=== PATIENT | male | born 1940 | race Caucasian/White ===

== ENCOUNTER → 2018-02-28 06:50 | Outpatient (CLI) | payer MEDICARE, OTHER, SELFPAY ==
--- NOTE | 2018-02-28 06:57 | CT_ITS ---
STUDY: LOW DOSE CT LUNG CANCER SCREENING REASON FOR EXAM: Male, 77 years old. 30 year pack history of smoking. RADIATION DOSAGE (If Supplied By Facility): CTDIvol = ( 4.02 ) mGy, DLP = ( 139.44 ) mGycm TECHNIQUE: No contrast was administered. Low dose technique was utilized (average mAS-38 and kVp 120). 1.25 mm axial source images with a slice interval of 1.25-mm were reconstructed in lung windows. 2.5 mm axial source images with a slice interval of 2.5-mm were reconstructed in lung windows. 5.0 mm axial source images with a slice interval of 5.0-mm were reconstructed in soft tissue windows. Nodule measured using lung windows on PACS and/or independent workstation with automated measurement of minimum and maximum diameter. Nodule measurement reported as average diameter rounded to the nearest whole number. Growth is defined as an increase ins size of greater than 1.5 mm. COMPARISON: Comparison is made with prior CT scan of the chest dated March 21, 2017. NODULES: No suspicious nodules seen. Aorta: Atherosclerotic plaque of the aortic arch and descending thoracic aorta. Coronary arteries: Prior CABG. Coronary artery calcification. Mediastinal nodes: Small benign-appearing mediastinal lymph nodes. Other chest and abdominal findings: Degenerative changes of the thoracic spine. CT/Low Dose CT Lung Screening IMPRESSION: Lung-RADS category 2 - Continue annual screening with LDCT in 12 months. IMPORTANT NOTES FOR USE: ACR Lung-RADS Version 1.0 Assessment Categories Release Date: March 23, 2014 Category: Coded 0-4 bases on nodule(s) with highest degree of suspicion. Negative screen is defined as categories 1 and 2; a positive screen is defined as categories 3 and 4. Category 3 and 4A nodules that are unchanged on interval CT should be coded as category 2, and individuals returned to screening in 12 months. Category 4X: Category 3 or 4 nodules with additional imaging findings that increase the suspicion of lung cancer, such as spiculation, GGN that doubles in size in 1 year, enlarged lymph notes, etc. Category Modifiers: S (significant finding unrelated to lung cancer) and C (prior history of treated lung cancer) may be added to the 0-4 Lung-RADS Electronically Signed: Og Oshea MD at 8:31 EDT Tel [phone], Service support ,
--- NOTE | 2018-02-28 11:15 | PFTCOMP ---
COMPLETE PULMONARY FUNCTION TEST INTERPRETATION Brief HPI: Patient is a 77 year old male, currently under the care of Dr. Estes, who presents to [facility] for complete pulmonary function tests secondary to diagnosis of COPD. Respiratory therapist reports good effort and reproducible results. Interpretation: Forced expiration spirometry shows a mild large airways obstructive ventilatory defect with an FEV1 of 75 % predicted. There is a significant bronchodilator response in FEV1 by ATS criteria. Spirograms are of good quality and plateau slowly, indicating slowly emptying areas of the lungs. The respiratory flow volume loop shows decreased expiratory flow rates at all lung volumes consistent with airway obstruction. Lung volumes by body plethysmography show a normal total lung capacity at 5.96 L, 93 % predicted. All other lung volumes are within normal limits. Diffusion capacity by carbon monoxide is normal at 90 % predicted. The airway resistance is elevated. Compared to previous pulmonary function tests from 01/30/2017, there has been a significant improvement in DLCO. Impression: Fully reversible mild large airways obstructive ventilatory defect more consistent with a diagnosis of asthma than COPD. There has been normalization of DLCO since last study.
--- NOTE | 2018-02-28 11:19 | PFTCOMP_ITS ---
COMPLETE PULMONARY FUNCTION TEST INTERPRETATION Brief HPI: Patient is a 77 year old male, currently under the care of Dr. Estes, who presents to [facility] for complete pulmonary function tests secondary to diagnosis of COPD. Respiratory therapist reports good effort and reproducible results. Interpretation: Forced expiration spirometry shows a mild large airways obstructive ventilatory defect with an FEV1 of 75 % predicted. There is a significant bronchodilator response in FEV1 by ATS criteria. Spirograms are of good quality and plateau slowly, indicating slowly emptying areas of the lungs. The respiratory flow volume loop shows decreased expiratory flow rates at all lung volumes consistent with airway obstruction. Lung volumes by body plethysmography show a normal total lung capacity at 5.96 L , 93 % predicted. All other lung volumes are within normal limits. Diffusion capacity by carbon monoxide is normal at 90 % predicted. The airway resistance is elevated. Compared to previous pulmonary function tests from 01/30/2017, there has been a significant improvement in DLCO. Impression: Fully reversible mild large airways obstructive ventilatory defect more consistent with a diagnosis of asthma than COPD. There has been normalization of DLCO since last study.
== END ==
PROVIDERS: Family Provider Nurse Practitioner Family; PCP Nurse Practitioner Family; Visit Provider Internal Medicine Critical Care Medicine
DX: Z12.2 Encounter for screening for malignant neoplasm of respiratory organs (principal); J44.9 Chronic obstructive pulmonary disease, unspecified; G47.33 Obstructive sleep apnea (adult) (pediatric); Z87.891 Personal history of nicotine dependence; E66.9 Obesity, unspecified
CPT/HCPCS: 94060; 94726; 94729; G0297

== ENCOUNTER → 2019-02-11 07:29 | Outpatient (CLI) | payer MEDICARE, OTHER, SELFPAY ==
[2018-11-22 10:46] VITALS: BMI 32.8
--- NOTE | 2019-02-11 14:03 | PFTCOMP_ITS ---
COMPLETE PULMONARY FUNCTION TEST INTERPRETATION Brief HPI: Patient is a 78 year old male, currently under the care of Dr. Estes, who presents to [facility] for complete pulmonary function tests secondary to diagnosis of COPD. Respiratory therapist reports good effort and reproducible results. Interpretation: Forced expiration spirometry shows a mild large airways obstructive ventilatory defect with an FEV1 of 82% predicted. There is no significant bronchodilator response by strict ATS criteria. Spirograms are of good quality and plateau slowly, indicating slowly emptying areas of the lungs. The respiratory flow volume loop shows decreased expiratory flow rates at high lung volumes consistent with small airways obstruction. Lung volumes by body plethysmography show a normal total lung capacity at 6.12 L, 95% predicted. All other lung volumes are within normal limits. Diffusion capacity by carbon monoxide is normal at 107% predicted. The airway resistance is normal. Compared to previous pulmonary function tests from 02/28/2018, there has been a significant improvement in DLCO. Impression: Irreversible mild large airways obstructive ventilatory defect with some improvement compared to previous testing.
== END ==
PROVIDERS: Family Provider Nurse Practitioner Family; PCP Nurse Practitioner Family; Referring Provider Nurse Practitioner Acute Care; Visit Provider Nurse Practitioner Acute Care
DX: J44.9 Chronic obstructive pulmonary disease, unspecified (principal)
CPT/HCPCS: 94060; 94726; 94729

== ENCOUNTER → 2019-06-24 07:15 | Outpatient (CLI) | payer MEDICARE, OTHER, SELFPAY ==
[2019-02-25 08:44] VITALS: BMI 32.8
[2019-06-24 08:06] LABS: Hematocrit 42.5 % (40-54); Hemoglobin 14.2 g/dL (13.0-16.5); Mean Corp Hgb Conc 33.4 g/dL (32-36); Mean Corpuscular Hgb 33.2 pg (27.0-32.0); Mean Corpuscular Volume 99.3 fL (80-94); Mean Platelet Vol. 9.8 fl (6.2-12.0); Platelet Count 178 K/mm3 (150-450); RBC Distribution Width CV 13.6 % (11.6-14.6); RBC Distribution Width SD 50.1 fl (35.1-43.9); Red Blood Count 4.28 M/mm3 (4.6-6.2); White Blood Count 4.6 K/mm3 (4.4-11.0)
[2019-06-24 08:53] LABS: AST(SGOT) 21 U/L (15-37); Alanine Aminotransfer ALT/SGPT 14 U/L (16-61); Albumin, Serum 3.5 g/dL (3.2-5.0); Alkaline Phosphatase 61 U/L (45-117); Anion Gap 6 (5-15); BUN 20 mg/dL (7-18); BUN/Creat Ratio 18.3 RATIO (10-20); Calcium,Total 8.7 mg/dL (8.5-10.1); Chloride 106 mmol/L (98-107); Cholesterol 165 mg/dL (200); Creatinine, Serum 1.09 mg/dL (0.70-1.30); EST Glomerular Filtration Rate 70 mL/min (>60); Est Glom Filt Rate - Afr Amer 84 mL/min (>60); Globulin 3.5 g/dL (2.2-4.2); Glucose 105 mg/dL (74-106); High Density Lipoprotein 45 mg/dL; Iron 146 ug/dL (65-175); Iron Binding Capacity,Total 280 ug/dL (250-450); PERCENT IRON SATURATION 52.1 % (15.0-55.0); Potassium 4.4 mmol/L (3.5-5.1); Sodium Level 140 mmol/L (136-145); Triglycerides 195 mg/dL; Very Low Density Lipoprotein 39 mg/dL (5-40)
[2019-06-24 09:57] LABS: Vitamin B12 255 pg/mL (211-911)
== END ==
PROVIDERS: Family Provider Nurse Practitioner Family; PCP Nurse Practitioner Family; Referring Provider Internal Medicine Gastroenterology; Visit Provider Internal Medicine Gastroenterology
DX: E78.5 Hyperlipidemia, unspecified (principal); E11.9 Type 2 diabetes mellitus without complications; N28.9 Disorder of kidney and ureter, unspecified; D63.8 Anemia in other chronic diseases classified elsewhere
CPT/HCPCS: 36415; 80053; 80061; 82607; 83540; 83550; 85027

== ENCOUNTER 2020-11-20 09:28 | Emergency (ER) | payer MEDICARE, SELFPAY ==
[2020-11-20 09:29] VITALS: BP 126/69; PULSE 79; RESP 16; TEMP 36.2; O2SAT 98; BMI 33.0
--- NOTE | 2020-11-20 09:42 | RAD_ITS ---
STUDY: X-RAY - LEFT FOOT CLINICAL: Male, 80 years old. fell yesterday, bruising on top of foot close to the toes, pain on top and bottom of foot TECHNIQUE: 3 view(s) of the foot. COMPARISON: None. FINDINGS: Nondisplaced fracture through the base of the proximal phalanx of the fifth digit. Otherwise, mild age-related degenerative change and postsurgical change of the distal fibula. RAD/Foot min 3 Views IMPRESSION: Nondisplaced fracture through the base of the proximal phalanx of the fifth digit Electronically Signed: Lionel Elliott DO at 10:08 EST Tel , Service support ,
--- NOTE | 2020-11-20 09:45 | ED.VIS.LOWEX ---
History of Present Illness Informant: Patient Occurred: Yesterday Mechanism/Context: Fall Onset: Yesterday Context: Sudden Onset Timing: Continuous Quality of Pain: Sharp Location: Left foot Current Severity: Severe Maximum Severity: Severe Worsened by: Movement Relieved by: Rest Associated Symptoms: Negative for: Parasthesia, Weakness, Loss of Funtion Narrative: 80-year-old male presents with left foot pain. He was lifting of his right leg so that his to put his sock on and he suffered a fall injuring his left foot. No prodromal symptoms. He did not hit his head or lose consciousness. He is not on anticoagulation. He has been ambulatory but with pain. Tetanus Immunization: Unknown Prior similar symptoms: No Recent Illness/Hospitalization: No <Mendoza Garcia - Last Filed: 11/20/20 10:21> <Aram Garcia - Last Filed: 11/20/20 10:56> Chief Complaint: Lower Extremity Injury Past Medical History Prior records reviewed: Yes Past Medical History: - - Parkinson's disease, COPD, coronary artery disease, hypertension, hyperlipidemia, type 2 diabetes Surgical History: angioplasty Lives: With Family Smoking Status: Current every day smoker Alcohol: Occasional Drugs: None <Mendoza Garcia - Last Filed: 11/20/20 10:21> <Aram Garcia - Last Filed: 11/20/20 10:56> - Allergies and Home Meds Allergies/Adverse Reactions: Allergies No Known Allergies Allergy (Unverified 11/20/20 09:29) Primary Care Physician: Keegan Garcia DO [STAFF PHYSICIAN] - Ruben Angela ELECTRICAL TESTER BATTERY, ELECTRICAL TESTER BATTERY-C [Primary Care Provider] - Review of Systems All systems negative except as indicated General: Denies: Chills, Fever, Sweats Eyes: Denies: Visual changes - bilaterally, Diplopia ENT: Denies: Rhinorrhea, Sore throat Cardiovascular: Denies: Chest pain, Palpitations Respiratory: Denies: Dyspnea, Cough, Dyspnea on exertion Gastrointestinal: Denies: Abdominal pain, Nausea, Vomiting, Diarrhea, Melena, Hematochezia Genitourinary: Denies: Dysuria, Hematuria, Frequency Musculoskeletal: Reports: Swelling, Extremity Pain. Denies: Back pain Skin: Denies: Rash, Wounds Neurological: Denies: Headache, Weakness, Numbness <Mendoza Garcia - Last Filed: 11/20/20 10:21> Physical Exam Vital Signs/Narrative: Vital Signs Temp Pulse Resp BP Pulse Ox 11/20/20 09:29 97.2 F L 79 16 126/69 H 98 Inital Vital Signs reviewed: Yes - Extremity Exam Left Foot: - - Patient has swelling and bruising over the dorsum of his left foot. It is diffusely tender to palpation. The skin is intact. DP and PT pulses are both normal. Capillary refill and sensation of all 5 toes were normal. No bony tenderness of the ankle leg or knee. General: Well nourished, Well developed Head: Normocephalic, Atraumatic Eyes: Perrl, EOMI ENT: No Trauma, Moist Mucous Membranes Neck: Nontender, Full ROM Cardiovascular: Regular rate, Regular rhythm, No murmurs Respiratory: No distress, CTA bilaterally, Chest nontender Abdomen: Soft, Nontender, Nondistended, Normal bowel sounds Back: Nontender Skin: Normal color, No rash Neurological: Alert, Oriented x3, Cranial nerves II-XII grossly intact, Normal Strength, Normal Sensation Psychological: Normal affect, Normal Mood <Mendoza Garcia - Last Filed: 11/20/20 10:21> Vital Signs/Narrative: Vital Signs Temp Pulse Resp BP Pulse Ox 11/20/20 09:29 97.2 F L 79 16 126/69 H 98 <Aram Garcia - Last Filed: 11/20/20 10:56> Diagnostic/Tx/Re-eval Impressions Foot X-Ray 11/20/20 09:42 IMPRESSION: Nondisplaced fracture through the base of the proximal phalanx of the fifth digit Electronically Signed: Lionel Elliott DO at 10:08 EST Tel , Service support , 11/20/20 09:42 Xray Foot [Foot min 3 Views] [RAD] Stat - Medical Decision Making X-ray of the left foot shows 1/5 phalanx fracture. Patient already has a walker at home he will be given a postoperative shoe I will prescribe White Stone new follow-up with orthopedics <Mendoza Garcia - Last Filed: 11/20/20 10:21> - Medical Decision Making Patient was seen with Mendoza castorena with history and physical as above, he has contusion and some bruising to the toes left foot with some edema, neurovascular function normal at this time the certainly concern for fracture or other conditions see the chart for full details and management options <Aram Garcia - Last Filed: 11/20/20 10:56> ED Disposition <Mendoza Garcia - Last Filed: 11/20/20 10:21> <Aram Garcia - Last Filed: 11/20/20 10:56> - Plan for ED Patient: Disposition: Home or Assisted Living Diagnosis: Closed fracture of phalanx of left fifth toe, COPD (chronic obstructive pulmonary disease) Instructions: ED Fracture, Toe, Closed Prescriptions: Hydrocodone Bitart/Apap 5-325 [[place] Stone 5MG-325MG] 1 tab PO Q6H PRN PRN 3 Days #10 tab PRN Reason: Pain Transmission Status: Received by [id number] Referrals: Ruben Angela ELECTRICAL TESTER BATTERY, ELECTRICAL TESTER BATTERY-C [Primary Care Provider] - Keegan Garcia DO [STAFF PHYSICIAN] -
== END 2020-11-20 11:01 | disposition home or self-care (01) ==
PROVIDERS: Emergency Provider Physician Assistant Medical; PCP Nurse Practitioner Family
DX: S92.515A Nondisplaced fracture of proximal phalanx of left lesser toe(s), initial encounter for closed fracture (principal); W19.XXXA Unspecified fall, initial encounter; Y93.89 Activity, other specified; Y92.9 Unspecified place or not applicable; Y99.9 Unspecified external cause status; J44.9 Chronic obstructive pulmonary disease, unspecified; I25.10 Atherosclerotic heart disease of native coronary artery without angina pectoris; I10 Essential (primary) hypertension; E11.9 Type 2 diabetes mellitus without complications; E78.5 Hyperlipidemia, unspecified; G20 Parkinson's disease; F17.200 Nicotine dependence, unspecified, uncomplicated; Z79.4 Long term (current) use of insulin; Z79.899 Other long term (current) drug therapy
CPT/HCPCS: 73630; 99283

== ENCOUNTER 2021-01-05 11:39 | Day surgery (SDC) | payer MEDICARE, SELFPAY ==
--- NOTE | 2021-01-03 12:11 | EKG12_ITS ---
Test Reason : PRE OP Blood Pressure : / mmHG Vent. Rate : 065 BPM Atrial Rate : 065 BPM P-R Int : 158 ms QRS Dur : 096 ms QT Int : 418 ms P-R-T Axes : 052 057 -05 degrees QTc Int : 434 ms Sinus rhythm with Fusion complexes Otherwise normal ECG Confirmed by JENNIFER GEORGES, AKIL ([id number]), dumpman CARTER RAWLS ([id number]) on 01/04/2021 8:14:54 AM Referred By: Markell Pantoja Confirmed By:AKIL RODRIGUEZ MD
[2021-01-03 12:54] LABS: Hematocrit 40.3 % (40-54); Hemoglobin 12.5 g/dL (13.0-16.5); Mean Corpuscular Hgb 31.6 pg (27.0-32.0); Mean Corpuscular Volume 101.8 fL (80-94); Mean Platelet Vol. 9.6 fl (6.2-12.0); Platelet Count 235 K/mm3 (150-450); RBC Distribution Width CV 13.5 % (11.6-14.6); RBC Distribution Width SD 50.9 fl (35.1-43.9); Red Blood Count 3.96 M/mm3 (4.6-6.2); White Blood Count 6.2 K/mm3 (4.4-11.0)
[2021-01-03 13:15] LABS: Hemoglobin A1c 6.3 % (3.8-5.6)
[2021-01-03 13:20] LABS: Anion Gap 5 (5-15); BUN 20 mg/dL (7-18); BUN/Creat Ratio 17.5 RATIO (10-20); Calcium,Total 8.8 mg/dL (8.5-10.1); Chloride 108 mmol/L (98-107); Creatinine, Serum 1.14 mg/dL (0.70-1.30); EST Glomerular Filtration Rate 66 mL/min (>60); Est Glom Filt Rate - Afr Amer 80 mL/min (>60); Glucose 132 mg/dL (74-106); Sodium Level 136 mmol/L (136-145)
[2021-01-04 05:00] VITALS: BMI 32.1
[2021-01-05] VITALS (14 sets, daily range): BP systolic 96–157; BP diastolic 57–106; PULSE 45–72; RESP 14–18; TEMP 36.3–36.9; O2SAT 95–99; BMI 31.1; BMI 31.2
--- NOTE | 2021-01-05 | IMM_PTH ---
PATIENT: AKASH GREGORY [place] [facility] [id number] AGE/SX: 80/M ROOM: RE01/05/[address]: Dr. Markell Pantoja MD : 1940 BED: DIS: 01/06/2021 SPEC #: [id number] RECD: 01/07/21 11:20 STATUS: CHARLES REQ #: [id number] HOMA: 01/05/21 00:[address]: Markell Pantoja DEPT: IMMUNOHISTOCHEMISTRY RECD BY: Romina Purdy ENTERED: 01/07/21 11:21 SP TYPE: IMMUNO OTHR DR: Ruben Angela, FRAME GATE MORTISER OPERATOR-C Tissues: Urinary bladder, NOS Procedures: CD31 (add) CK20 (add) CK7 (add) CK8 (add) 34BE12 (add) FACTOR VIII (add) Pankeratin (initial) P40 (add) CD44 (add) PSAP (add) PHYSICIAN [facility] INSTITUTION [address] [address] SPECIMEN INFORMATION: Tissue Source: Bladder tumor invading in prostate Clinical Info: Bladder tumor Specimen Number: [id number] #6 CPT code: 17896, 10603 x9 METHODOLOGY: Deparaffinized sections of prefer/formalin-fixed tissue or PAP/DQ stained slides are incubated with monoclonal/polyclonal antibodies/oligonucleotide probes. Localization is made via biotin free immunoperoxidase method. Appropriate controls are performed and reacted as expected. Results on target cell population are indicated in the following table: RESULTS: ANTIBODY / CLONE RESULT Block 6 Bladder Carcinoma Prostate Carcinoma AE1-3 (AE1/AE3/PCK26) positive positive CK7 (OV-TL12/30) positive negative CK8 (57faqeX33) positive positive CK20 (KS20.8) negative negative 34BE12 (34BE12) positive negative PSAP (PASE/4LJ) negative positive anti-CD44 (SP37) positive negative P40 (BC28) positive negative Factor VIII (R Ag) positive negative CD31 (PADILLA/70A) positive negative These tests were developed and their performance characteristics determined by [facility]. They may not have been cleared or approved by the U.S. Food and Drug Administration. The FDA has determined that such clearance or approval is not necessary. The above immunohistochemical/dualISH markers are ordered and reviewed by the Pathologist. 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 SJ:delia 01/10/2021
--- NOTE | 2021-01-05 07:20 | PCM.HP.STD ---
History of Present Illness Date of Admission: 01/05/21 Chief Complaint: Large bladder tumor greater than 3 cm in size in the lateral wall left The patient is a 80 year old male presents to the office with gross hematuria and cystoscopy is found to have a large tumor in his bladder plan to proceed with a transurethral resection of this tumor tumor is greater than 3 cm in size. Past Medical History Past Medical History (Chronic Problems): Chronic Problems (Last Reviewed 02/26/20 @ 10:[address] Jesus Estes DO) Nicotine dependence, cigarettes, uncomplicated (Chronic) JOHN (obstructive sleep apnea) (Chronic) COPD (chronic obstructive pulmonary disease) (Chronic) Medical History: Medical History (Last Reviewed 01/05/21 @ 07:[address] Markell Pantoja MD) Nicotine dependence, cigarettes, uncomplicated (Chronic) F17.210 JOHN (obstructive sleep apnea) (Chronic) G47.33 COPD (chronic obstructive pulmonary disease) (Chronic) J44.9 Acute MS, inferior wall I21.19 Obesity E66.9 Pneumonia J18.9 Tobacco use disorder, continuous F17.209 B12 deficiency E53.8 CAD (coronary artery disease) I25.10 CKD stage 3 COPD (chronic obstructive pulmonary disease) J44.9 Diabetes mellitus E11.9 Diabetic neuropathy E11.40 Hyperlipidemia E78.5 Mitral valve regurgitation I34.0 JOHN (obstructive sleep apnea) G47.33 Parkinson disease G20 Pulmonary HTN I27.20 Tricuspid valve regurgitation I07.1 Allergies No Known Allergies Allergy (Verified 12/29/20 13:00) Home Medications: Ambulatory Orders Medication Instructions Recorded albuterol sulfate 2.5 mg INHALATION Q4H PRN 03/12/18 duloxetine 60 mg capsule,delayed 60 mg PO BID cap 03/12/18 release ferrous sulfate 324 mg (65 mg 324 mg PO QDAY tab 03/12/18 iron) tablet,delayed release gabapentin 800 mg tablet 800 mg PO TID 03/12/18 glimepiride 4 mg tablet 4 mg PO QAM 03/12/18 omega-3 fatty acids 1,000 mg 1,000 mg PO QDAY 03/12/18 capsule pioglitazone 45 mg tablet 45 mg PO QDAY 03/12/18 primidone 250 mg PO TID 03/12/18 simvastatin 40 mg tablet 40 mg PO QPM 03/12/18 ipratropium 0.5 mg-albuterol 3 mg 3 ml INHALATION Q6H #180 ml 03/18/18 (2.5 mg base)/3 mL nebulization soln hydrocodone 5 mg-acetaminophen 325 1 tab PO Q6H PRN #20 tab 11/01/ mg tablet Carbidopa/Levodopa 50/200 [Sinemet 1 tab PO 4X/DAY 12/29/20 CR] Insulin Glargine [Lantus (BKC)] 22 units SC DAILY PRN PRN 12/29/20 Surgical History: Surgical History (Last Reviewed 01/05/21 @ 07:[address] 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 Surgical History: angioplasty Smoking Status: Current some day smoker Tobacco Use: Cigarettes Review of Systems Constitutional: Denies: Chills, Fever, Weight Change HEENT: Denies: Head Aches, Sinus Congestion, Sinus Drainage Cardiovascular: Denies: Chest Pain, Palpitations Respiratory: Denies: Cough, Shortness of breath at rest, Sputum production Gastrointestinal: Denies: Abdominal Pain, Nausea, Vomiting Genitourinary: Denies: Dysuria Musculoskeletal: Denies: Joint Pain, Joint Tenderness Skin: Denies: Rash, Wounds Neurological: Denies: Numbness, Tingling, Focal weakness Psychiatric: Denies: Anxiety, Depression, Homicidal Ideations, Suicidal Ideations Hematologic/ Lymphatic: Denies: Easy Bruising, Easy Bleeding VTE Information - Inpt Only VTE Present on Admission: No VTE Mechan Device Prophylaxis: SCD's - Physical Exam General: Alert, Oriented x3, Cooperative HEENT: Atraumatic, PERRLA, EOMI, Normocephalic Neck: Supple, No JVD, Negative Carotid Bruits Lungs: Clear to auscultation, Normal air movement Cardiovascular: Regular rate, No murmurs Abdomen: Bowel Sounds Present, Soft, Non Tender Extremities: No edema, Capillary Refill Less than 3 Seconds Skin: No rashes, No breakdown Musculoskeletal: No Tenderness to Palpation of Joints or Extremities Neurological: Cranial nerves II-XII grossly intact Psych/Mental Status: Normal Affect, Appropriate Microbiology Past 72 Hours 01/03/21 12:10 Interface Orders SARS-CoV-2 Antigen (Rapid) - Final Current Medications Cefazolin Sodium 2 gm/ Sodium (Chloride) 110 mls @ 150 mls/hr IV PREOP ONE Stop: 01/05/21 13:53 Mitomycin 40 mg/ Sodium (Chloride 40 ml/ N/A) 40 mls @ 2,400 mls/hr INSTILLAT X1 ONE Stop: 01/05/21 13:11 Assessment/Plan 80-year-old male found to have a large bladder tumor plan to proceed with transurethral resection of bladder tumor and instillation of mitomycin-C this to be done under general anesthesia with paralytic anesthesia.
[2021-01-05] MEDS: Lactated Ringers 1,000 ML 100 ML IV ×2 (12:31→22:48)
[2021-01-05 12:45] LABS: Bedside Glucose 127 mg/dL (70-110)
--- NOTE | 2021-01-05 13:10 | BLB_PTH ---
PATIENT: AKASH GREGORY [place] [facility] [place][id number] AGE/SX: 80/M ROOM: RE01/05/[address]: Dr. Markell Pantoja MD : 1940 BED: DIS: 01/06/2021 SPEC #: [id number] RECD: 01/06/21 07:36 STATUS: CHARLES REMarlon #: [id number] HOMA: 01/05/21 13:[address]: Markell Pantoja DEPT: SURGICAL PATHOLOGY RECD BY: Surekha Robles ENTERED: 01/06/21 08:44 SP TYPE: TURB OTHR DR: Ruben Angela, CHIEF ENGINEER'S HELPER-C Tissues: Urinary bladder, NOS Procedures: Surgery Specimen Level V HEADER OPERATION: Cystoscopy, transurethral resection of large bladder tumor PRE-OP DIAGNOSIS: Bladder tumor TISSUE SUBMITTED: Bladder tumor invading into prostate MICROSCOPIC DIAGNOSIS Bladder tumor invading into prostate, transurethral resection: Invasive urothelial carcinoma. A minute focus of prostate adenocarcinoma (2 x 1 mm). See cancer summary in the comment section. AM:delia 01/10/2021 COMMENT BLADDER CANCER (TUR) SUMMARY Procedure: Transurethral resection of bladder. Tumor site: not specified Histologic type: Papillary urothelial carcinoma, invasive Associated epithelial lesions: Minute focus of prostatic adenocarcinoma Histologic grade: high grade (2-3) Tumor configuration: Papillary and invasive Muscularis propria invasion: Present. (May represent detrusor muscle including prostatic stromal tissue.) Lymphvascular invasion by urothelial carcinoma: Focally present. Tumor extension: Tumor invades muscularis propria (may represent detrusor muscle including prostatic stromal tissue). Additional pathologic findings: None identified PROSTATE CANCER (TUR) SUMMARY: Procedure - TURBT (with rare fragments of TURP) Histologic type - acinar adenocarcinoma Histologic grade ([place] Pattern) - grade group 1 (Natalie 3+3=6) Intraductal carcinoma is not identified. Tumor Quantitation (TUR specimens): Proportion (%) of prostatic tissue involved by tumor - <1% Number of positive chips - 1 Total number of chips - >100 Periprostatic fat invasion - not identified Seminal vesicle invasion - not identified Lymphvascular invasion - not identified Perineural invasion - not identified Additional pathologic findings - invasive papillary urothelial carcinoma. See Urothelial cancer summary above. Treatment effect - no known presurgical therapy. The above summary is in compliance with [employer] [place] [employer] (CAP) Cancer Protocols Checklist and [place] Joint Committee on Cancer (AJCC), Staging Manual, 8th Ed. Immunohistochemistry ([id number]) supports the above diagnosis. Case has been reviewed in consultation with Dr. Sotelo who concurs with the above diagnosis. IDC:[email or web address] MICROSCOPIC DESCRIPTION Slides are reviewed. GROSS DESCRIPTION Received in fixative is one container labeled with the patient's name and designated bladder tumor invading into prostate. The specimen consists of multiple irregular fragments of pink-haider, rubbery, soft tissue that in aggregate weigh 14.7 gm and measure in aggregate 6 x 5 x 1 cm. The specimen is totally submitted in ten cassettes. / LIBORIO:delia 01/06/21 TC:0 CPT: 32188
[2021-01-05] MEDS: Cefazolin 2 GM in 0.9% Normal Saline 100 ML IV (13:42)
--- NOTE | 2021-01-05 13:44 | PCM.DC.URO ---
Discharge Diet: Light diet - advance as tolerated Discharge Activity: Return to Normal Activity, May Shower Call your doctor if your incision/area has: Sudden Increased Bleeding, Increased Pain/ Swelling, Increased Redness Call your doctor if you observe: Fever of 101 or Higher Suture Line Care: Avoid Pulling/Pushing, Avoid Pinching/Bending Instructions: Treating Bladder Cancer: TUR (Transurethral Resection) Allergies/Adverse Reactions: Allergies No Known Allergies Allergy (Verified 01/05/21 12:12) Medications to take at Discharge albuterol sulfate 2.5 mg INHALATION Q4H PRN 03/12/18 duloxetine 60 mg capsule,delayed release 60 mg PO BID cap 03/12/18 ferrous sulfate 324 mg (65 mg iron) tablet,delayed release 324 mg PO QDAY tab 03/12/18 gabapentin 800 mg tablet 800 mg PO TID 03/12/18 glimepiride 4 mg tablet 4 mg PO QAM 03/12/18 omega-3 fatty acids 1,000 mg capsule 1,000 mg PO QDAY 03/12/18 pioglitazone 45 mg tablet 45 mg PO QDAY 03/12/18 primidone 250 mg PO TID 03/12/18 simvastatin 40 mg tablet 40 mg PO QPM 03/12/18 ipratropium 0.5 mg-albuterol 3 mg (2.5 mg base)/3 mL nebulization soln 3 ml INHALATION Q6H #180 ml 03/18/18 hydrocodone 5 mg-acetaminophen 325 mg tablet 1 tab PO Q6H PRN #20 tab 11/01/20 Carbidopa/Levodopa 50/200 [Sinemet CR] 1 tab PO 4X/DAY 12/29/20 Insulin Glargine [Lantus (BKC)] 22 units SC DAILY PRN PRN 12/29/20 Ciprofloxacin [Cipro] 500 mg PO BID #10 tab 01/05/21 Hydrocodone Bitart/Apap 5-325 [[place] 5MG-325MG] 1 tablet PO Q4H PRN PRN 7 Days #14 tablet 01/05/21 The following prescriptions were given: Ciprofloxacin [Cipro] 500 mg PO BID #10 tab Transmission Status: Pending to [facility] Hydrocodone Bitart/Apap 5-325 [[place] 5MG-325MG] 1 tablet PO Q4H PRN PRN 7 Days #14 tablet PRN Reason: Pain Transmission Status: Sent to [facility] Primary Care Physician: Ruben Angela DRAWER UPFITTER, DRAWER UPFITTER-C [Primary Care Provider] - Test Results: Test results from this visit will be discussed in further detail at your follow-up appointment, if applicable. Please Follow Up With: Markell Pantoja MD When: in 2 weeks, please call to make an appointment.
[2021-01-05] MEDS: Lubricating Jelly 60 GM Tube 30 GM TOPICAL (13:59)
--- NOTE | 2021-01-05 14:28 | OP.PCM_ITS ---
Report of Operation Date of Procedure: 01/05/21 Pre-Operative Diagnosis: Bladder mass at the bladder neck invasion prostate Post-Operative Diagnosis: Same Surgery/Procedure Performed:: Transurethral resection of the prostate. Transurethral section of bladder tumor large tumor greater than 5 cm in size. and instillation of mitomycin C Description of Surgical Findings:: Patient presented to the hospital for treatment of a tumor that was found in the bladder with a very large bladder tumor. Patient understands is possible it may not be able to resect the entire tumor. Patient also understands is possible that the patient may need multiple procedures or more invasive procedures to cure him of this cancer. Patient was taken back to the operating room after smooth induction of anesthesia the patient was placed supine on the table. The patient was placed in dorsolithotomy position. The urethra and genitals prepped and draped in usual sterile fashion. I went into the bladder with a 30 degree lens and a cystoscope and identified the tumor the tumor was about 5-6 centimeters in size and occupying mostly the Trigone, bladder neck and prostate and left lateral wall of the bladder. The right and left ureteral orifice were identified. The tumor was involved in the left ureteral orifice. I then placed the resectoscope and the bladder and resected the entire tumor down to the muscle. And then cauterized the resection base to obtained hemostasis. Went into the bladder using the visual obturator with a resectoscope. Once inside the bladder identified the right and left ureteral orifice. I then identified the prostate and the anatomy of the prostate. I marked out the area of the sphincter and the verumontanum was identified. I then proceeded with the prostate resection first resected the median lobe. And then resected the right lobe of the prostate. Then to resect the left lobe of the prostate. I then resected the apical tissue of the prostate. Made sure that there was no injury to the sphincter or the verumontanum was still intact. At the end of the resection all the chips were Ellik out of the bladder. I then identified the left and right ureteral orifice and these were confirmed to be in good position and effluxing and not injured. The resectoscope was removed, a 22 Albanian catheter was placed into the bladder on continuous irrigation. And the urine was fairly light pink color and draining normally. He was taken back to the PACU in good condition. At end of case mitomycin C was instilled for 20 minutes. Type of Anesthesia:: General Drains: [address] medellin - Admit VTE Documentation VTE Present on Admission: No VTE Mechan Device Prophylaxis: SCD's
[2021-01-05] MEDS: Ketorolac 15 MG/ML Vial IV (15:18)
[2021-01-05] MEDS: Ondansetron 4 MG/2 ML Vial IV (15:18)
[2021-01-05] MEDS: 0.9% Normal Saline 1,000 ML 75 ML IV (15:43)
[2021-01-05 16:45] LABS: Bedside Glucose 106 mg/dL (70-110)
[2021-01-05] MEDS: Gabapentin 800 MG Tablet PO (17:48)
[2021-01-05] MEDS: Ipratropium/Albuterol Sulfate 3 ML AMPUL.NEB INHALATION (19:02)
[2021-01-05] MEDS: Ciprofloxacin 400 MG/200 ML BAG 200 MG IV (22:40)
[2021-01-05] MEDS: DULoxetine Hcl 60 MG Capsule PO (22:42)
[2021-01-05] MEDS: Docusate Sodium 100 MG Capsule PO (22:42)
[2021-01-05] MEDS: Primidone 250 MG Tablet PO (22:44)
[2021-01-05] MEDS: Atorvastatin Calcium 20 MG Tablet PO (22:45)
[2021-01-05] MEDS: CLARIFY ORDER NOTE (22:59)
[2021-01-06] VITALS (7 sets, daily range): BP systolic 101–130; BP diastolic 57–78; PULSE 58–75; RESP 16–18; TEMP 36.7–37.2; O2SAT 95–99; BMI 31.2
[2021-01-06] MEDS: Ipratropium/Albuterol Sulfate 3 ML AMPUL.NEB INHALATION ×3 (00:59→14:00)
[2021-01-06] MEDS: Primidone 250 MG Tablet PO ×2 (05:59→14:26)
[2021-01-06] MEDS: 0.9% Normal Saline 1,000 ML 75 ML IV (06:01)
[2021-01-06 07:11] LABS: Bedside Glucose 143 mg/dL (70-110)
[2021-01-06] MEDS: Glimepiride 4 MG Tablet PO (07:58)
[2021-01-06] MEDS: Gabapentin 800 MG Tablet PO ×2 (07:58→13:05)
[2021-01-06] MEDS: Ferrous Sulfate 325 MG Tablet PO (07:59)
[2021-01-06] MEDS: Ciprofloxacin 400 MG/200 ML BAG 200 MG IV (10:41)
[2021-01-06] MEDS: DULoxetine Hcl 60 MG Capsule PO (10:42)
[2021-01-06] MEDS: Pioglitazone Hydrochloride 45 MG Tablet PO (10:43)
[2021-01-06] MEDS: Pantoprazole Sodium 40 MG Tablet PO (10:43)
[2021-01-06] MEDS: Docusate Sodium 100 MG Capsule PO (10:43)
--- NOTE | 2021-01-06 11:33 | PHA.DC.MC ---
Pharmacy Service has performed discharge medication reconciliation and counseling for this patient. The patient was counseled on the following discharge medications and changes in medications for homegoing were reviewed. 1. CIPRO 2. NORCO The Reason for Use, instructions for use, and potential side effects were reviewed for all new medications. The patient's questions regarding all of their medications were answered. The patient was able to verbally demonstrate an understanding of their discharge medications. Home Medications albuterol sulfate 2.5 mg INHALATION Q4H PRN 03/12/18 duloxetine 60 mg capsule,delayed release 60 mg PO BID cap 03/12/18 ferrous sulfate 324 mg (65 mg iron) tablet,delayed release 324 mg PO QDAY tab 03/12/18 gabapentin 800 mg tablet 800 mg PO TID 03/12/18 glimepiride 4 mg tablet 4 mg PO QAM 03/12/18 omega-3 fatty acids 1,000 mg capsule 1,000 mg PO QDAY 03/12/18 pioglitazone 45 mg tablet 45 mg PO QDAY 03/12/18 primidone 250 mg PO TID 03/12/18 simvastatin 40 mg tablet 40 mg PO QPM 03/12/18 ipratropium 0.5 mg-albuterol 3 mg (2.5 mg base)/3 mL nebulization soln 3 ml INHALATION Q6H #180 ml 03/18/18 Carbidopa/Levodopa 50/200 [Sinemet CR] 1 tab PO 4X/DAY 12/29/20 Insulin Glargine [Lantus (BKC)] 22 units SC DAILY PRN PRN 12/29/20 Ciprofloxacin [Cipro] 500 mg PO BID #10 tab 01/05/21 Hydrocodone Bitart/Apap 5-325 [[place] 5MG-325MG] 1 tab PO Q4H PRN PRN 7 Days #14 tab 01/05/21 The patient's discharge medication list was reviewed for discrepancies and discrepancies were resolved.
== END 2021-01-06 14:31 | disposition home or self-care (01) ==
LOC: SDC 11:40 → AC 11:42 → MS3 01-06 08:42
PROVIDERS: Anesthesiology; PCP Nurse Practitioner Family; Referring Provider Urology; Visit Provider Urology
PROC: 0T5B8ZZ Destruction of Bladder, Via Natural or Artificial Opening Endoscopic (ICD-10-PCS; CPT 51720; principal; 2021-01-05 13:00)
DX: C67.9 Malignant neoplasm of bladder, unspecified (principal); C61 Malignant neoplasm of prostate; R31.0 Gross hematuria; I12.9 Hypertensive chronic kidney disease with stage 1 through stage 4 chronic kidney disease, or unspecified chronic kidney disease; N18.30 Chronic kidney disease, stage 3 unspecified; I25.10 Atherosclerotic heart disease of native coronary artery without angina pectoris; I27.20 Pulmonary hypertension, unspecified; I08.1 Rheumatic disorders of both mitral and tricuspid valves; I25.2 Old myocardial infarction; J44.9 Chronic obstructive pulmonary disease, unspecified; E11.22 Type 2 diabetes mellitus with diabetic chronic kidney disease; E78.5 Hyperlipidemia, unspecified; G20 Parkinson's disease; E11.40 Type 2 diabetes mellitus with diabetic neuropathy, unspecified; F17.210 Nicotine dependence, cigarettes, uncomplicated; E66.9 Obesity, unspecified; Z68.31 Body mass index [BMI] 31.0-31.9, adult; Z95.1 Presence of aortocoronary bypass graft; Z79.4 Long term (current) use of insulin; Z79.899 Other long term (current) drug therapy; Z20.822 Contact with and (suspected) exposure to COVID-19
CPT/HCPCS: 52240; 52601; 36415; 80048; 82962; 83036; 85027; 87426; 88307; 88341; 88342; 93005; 94640; 99406; C9803; J7030; J7120; J0744; J2405; J3490; J9280

== ENCOUNTER 2021-01-07 18:39 | Emergency (ER) | payer MEDICARE, SELFPAY ==
[2021-01-05 12:17] VITALS: BMI 31.1
[2021-01-07 18:40] VITALS: BP 119/59; PULSE 77; RESP 16; TEMP 36.1; O2SAT 97; BMI 32.0
--- NOTE | 2021-01-07 18:51 | ED.VIS.GEN ---
History of Present Illness Chief Complaint: Harrison C/O Informant: Patient Narrative: 80-year-old male presents with concern for Harrison malfunction. Patient had cystoscopy secondary to bladder cancer [address] Pack. States that his Harrison catheter has been functioning without issue last night throughout the day today but then stopped making urine over the past 1 hour. States he feels the urge to go but is draining no urine. Past Medical History - Allergies and Home Meds Allergies/Adverse Reactions: Allergies No Known Allergies Allergy (Verified 01/07/21 18:40) Primary Care Physician: Ruben Angela COMMUNICATIONS MARKETING INTERN, COMMUNICATIONS MARKETING INTERN-C [Primary Care Provider] - Prior records reviewed: Yes Past Medical History: - - HTN, JOHN, HLD, Bladder cancer Surgical History: angioplasty Lives: Spouse/ Significant Other Smoking Status: Current some day smoker Alcohol: None Drugs: None Review of Systems General: Denies: Chills, Fever, Sweats Eyes: Denies: Visual changes - bilaterally, Diplopia ENT: Denies: Rhinorrhea, Sore throat Cardiovascular: Denies: Chest pain, Palpitations Respiratory: Denies: Dyspnea, Cough, Dyspnea on exertion Gastrointestinal: Denies: Abdominal pain, Nausea, Vomiting, Diarrhea, Melena, Hematochezia Genitourinary: Denies: Dysuria, Hematuria, Frequency Musculoskeletal: Denies: Back pain, Extremity Pain Skin: Denies: Rash, Wounds Neurological: Denies: Headache, Weakness, Numbness Physical Exam Vital Signs/Narrative: Vital Signs Temp Pulse Resp BP Pulse Ox 01/07/21 18:40 97.0 F L 77 16 119/59 L 97 Inital Vital Signs reviewed: Yes General: Well nourished, Well developed, No Acute Distress Head: Normocephalic, Atraumatic Eyes: Perrl, EOMI ENT: Moist mucous membranes, No rhinorrhea Neck: Supple, Nontender Cardiovascular: Regular rate, Regular rhythm, No murmurs Respiratory: No distress, CTA bilaterally, Chest nontender Abdomen: Soft, Nontender, Nondistended, Normal bowel sounds : - - Harrison catheter in place with small amount blood surrounding meatus. Back: Nontender, Normal Inspection Extremities: Nontender, No edema Skin: Normal color, No rash Neurological: Alert, Oriented x3, Cranial nerves II-XII grossly intact, Normal Strength, Normal Sensation Psychological: Normal affect, Normal Mood Diagnostic/Tx/Re-eval - Medical Decision Making Patient appears well and nontoxic. Vital signs within normal limits. Harrison catheter in place. The Harrison was flushed multiple times. It is now pink-tinged in nature and flowing freely. Patient will follow up with urologist. Asked to return for new or worsening symptoms. Discharged home in stable condition. Impression: 1. Harrison catheter dysfunction ED Disposition - Plan for ED Patient: Disposition: Home or Assisted Living Instructions: ED Harrison Catheter, Care Referrals: Ruben Angela COMMUNICATIONS MARKETING INTERN, COMMUNICATIONS MARKETING INTERN-C [Primary Care Provider] - 2 Days Markell Pantoja MD [STAFF PHYSICIAN] - As Needed
[2021-01-07 20:30] VITALS: BP 118/74; PULSE 79; RESP 16; O2SAT 98
== END 2021-01-07 20:30 | disposition home or self-care (01) ==
PROVIDERS: Emergency Provider Emergency Medicine; PCP Nurse Practitioner Family
DX: T83.091A Other mechanical complication of indwelling urethral catheter, initial encounter (principal); C67.9 Malignant neoplasm of bladder, unspecified; I10 Essential (primary) hypertension; E78.5 Hyperlipidemia, unspecified; F17.200 Nicotine dependence, unspecified, uncomplicated; Z79.899 Other long term (current) drug therapy
CPT/HCPCS: 99282

== ENCOUNTER → 2021-01-19 10:15 | Outpatient (CLI) | payer MEDICARE, SELFPAY ==
[2021-01-19 09:53] VITALS: BMI 33.2
--- NOTE | 2021-01-19 10:22 | RAD_ITS ---
STUDY: X-RAY - LEFT KNEE REASON FOR EXAM: Male, 80 years old. Abnormal bone scan. TECHNIQUE: 2 view(s) of the knee. COMPARISON: No relevant priors. FINDINGS: No visible fracture. No osseous destruction. Alignment anatomic. Mild degenerative changes. Prepatellar soft tissue swelling. Calcific atherosclerosis. Surgical clips medial to the left knee. RAD/Knee 1 or 2 Views IMPRESSION: No acute osseous abnormality. Prepatellar soft tissue swelling. Electronically Signed: Devaughn Díaz MD at 7:17 EST Tel , Service support ,
--- NOTE | 2021-01-19 10:22 | RAD_ITS ---
STUDY: X-RAY - RIGHT KNEE REASON FOR EXAM: Male, 80 years old. Abnormal bone scan. TECHNIQUE: 2 view(s) of the knee. COMPARISON: 11/29/2020 radiographs. FINDINGS: Lucency through the lateral patella remains visible. No new fracture is evident. Alignment remains near-anatomic. Normal bony mineralization. Dense calcific atherosclerosis. No acute soft tissue abnormality. RAD/Knee 1 or 2 Views IMPRESSION: Lucency through the lateral patella remains visible. 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 Less likely nonhealing fracture. Electronically Signed: Devaughn Díaz MD at 7:20 EST Tel , Service support ,
--- NOTE | 2021-01-19 10:22 | RAD_ITS ---
STUDY: X-RAY - LEFT FOOT CLINICAL: Male, 80 years old. Follow-up fracture. TECHNIQUE: 3 view(s) of the foot. COMPARISON: 12/13/2020 left foot radiographs. FINDINGS: Some interval healing of the midshaft second metatarsal fracture with callus formation. The fracture line remains faintly visible. The fifth proximal phalanx fracture is no longer visible. Mild bony demineralization and degenerative changes again demonstrated. No new fractures are evident. Fixation hardware partially visible distal fibula. Calcific atherosclerosis. No acute soft tissue abnormality. RAD/Foot min 3 Views IMPRESSION: Some interval healing of the midshaft second metatarsal fracture with callus formation. The fracture line remains faintly visible. The fifth proximal phalanx fracture is no longer visible. Electronically Signed: Devaughn Díaz MD at 7:16 EST Tel , Service support ,
== END ==
PROVIDERS: PCP Nurse Practitioner Family; Referring Provider Internal Medicine Hematology & Oncology; Visit Provider Internal Medicine Hematology & Oncology
DX: R94.8 Abnormal results of function studies of other organs and systems (principal); C67.9 Malignant neoplasm of bladder, unspecified
CPT/HCPCS: 73560; 73630

== ENCOUNTER 2021-01-24 10:44 | Day surgery (SDC) | payer MEDICARE, SELFPAY ==
[2021-01-19 09:53] VITALS: BMI 33.2
[2021-01-19 14:18] VITALS: BMI 33.8
[2021-01-24] VITALS (7 sets, daily range): BP systolic 119–131; BP diastolic 48–68; PULSE 54–99; RESP 14–16; TEMP 36.3–36.9; O2SAT 98–99; BMI 33.6
[2021-01-24] MEDS: Lactated Ringers 1,000 ML 100 ML IV (11:33)
[2021-01-24 11:55] LABS: Bedside Glucose 135 mg/dL (70-110)
--- NOTE | 2021-01-24 13:41 | PCM.HP.BLA ---
Problem List (1) Encounter for adjustment and management of vascular access device Status: Acute (2) Bladder cancer Status: Acute Qualifiers: History and Physical Date of Admission: 01/24/21 Intake Vital Signs 01/19/21 Height 5 ft 9 in 01/19/21 Weight: 225 lb 01/19/21 BMI 33.2 01/19/21 BP 130/67 H 01/19/21 Blood Pressure Location Rt brachial 01/19/21 Position Sitting 01/19/21 Respiration 18 01/19/21 Pulse 71 01/19/21 Pulse Source Monitor 01/19/21 Temp 97.6 F L 01/19/21 Temp Source Temporal 01/19/21 Pulse Oximetry (%) 18 01/19/21 Oxygen Delivery Method room air Intake Visit Reasons: PORT PLACEMENT Chief Complaint: port placement Post Graduate Internship Required: No Accompanied by: Is patient in pain?: No Allergies No Known Allergies Allergy (Verified 01/19/21 09:55) Medications albuterol sulfate 2.5 mg INHALATION Q4H PRN 03/12/18 [History Confirmed 01/19/21] duloxetine 60 mg capsule,delayed release 60 mg PO BID cap 03/12/18 [History Confirmed 01/19/21] ferrous sulfate 324 mg (65 mg iron) tablet,delayed release 324 mg PO QDAY tab 03/12/18 [History Confirmed 01/19/21] gabapentin 800 mg tablet 800 mg PO TID 03/12/18 [History Confirmed 01/19/21] omega-3 fatty acids 1,000 mg capsule 1,000 mg PO QDAY 03/12/18 [History Confirmed 01/19/21] ipratropium 0.5 mg-albuterol 3 mg (2.5 mg base)/3 mL nebulization soln 3 ml INHALATION Q6H #180 ml 03/18/18 [Rx Confirmed 01/19/21] Carbidopa/Levodopa 50/200 [Sinemet CR] 1 tab PO 4X/DAY 12/29/20 [History Confirmed 01/19/21] Insulin Glargine [Lantus (BKC)] 22 units SC DAILY PRN PRN 12/29/20 [History Confirmed 01/19/21] Fenofibrate 160 mg PO DAILY 01/14/21 [History Confirmed 01/19/21] Glimepiride [Amaryl] 4 mg PO DAILY 01/14/21 [History Confirmed 01/19/21] Pioglitazone [Actos] 45 mg PO DAILY 01/14/21 [History Confirmed 01/19/21] Primidone [Mysoline] 250 mg PO TID 01/14/21 [History Confirmed 01/19/21] Simvastatin [Zocor] 40 mg PO QHS 01/14/21 [History Confirmed 01/19/21] Tamsulosin HCl [Flomax] 0.4 mg PO DAILY 01/14/21 [History Confirmed 01/19/21] Topiramate [Topamax] 50 mg PO BID 01/14/21 [History Confirmed 01/19/21] [facility] Medical History Obesity (Acute) Tobacco use disorder, continuous (Acute) Parkinson disease (Chronic) B12 deficiency (Chronic) Tricuspid valve regurgitation (Chronic) Mitral valve regurgitation (Chronic) Diabetic neuropathy (Chronic) CAD (coronary artery disease) (Chronic) Pulmonary HTN (Chronic) Hyperlipidemia (Chronic) Diabetes mellitus (Chronic) CKD stage 3 (Chronic) Anemia (Acute) Atherosclerotic heart disease (Acute) Emphysema, unspecified (Acute) Primary hypertension (Acute) Low back pain (Acute) Nicotine dependence, cigarettes, uncomplicated (Chronic) JOHN (obstructive sleep apnea) (Chronic) COPD (chronic obstructive pulmonary disease) (Chronic) Acute VT, inferior wall (Acute) Acute kidney failure, unspecified (Acute) BPH with obstruction/lower urinary tract symptoms (Acute) Bladder cancer (Acute) Cardiac murmur, unspecified (Acute) 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 Mendoza Lentz MD) Smoking Status: Light Smoker (<10/day) alcohol intake: never substance use type: does not use HPI HPI HPI: AKASH GREGORY, is a 80 M who presents to the office today for HPI HPI Surgical H&P: Yes HPI: AKASH GREGORY, is a 80 M who presents to the office today for Port placement. The patient was recently diagnosed with bladder cancer and requires port for chemotherapy. ROS General General: Yes weight change; no appetite, fatigue, colon cancer, breast cancer or weakness HEENT HEENT: Yes eye surgery; no difficulty swallowing, eye injury, swollen glands or hoarseness Endo Endocrine: Yes diabetes mellitus; no thyroid disease, thyroid cancer, Hair loss, heat intolerance or cold intolerance Skin Skin: No rash or changing moles Breast Breast: No left breast lump, right breast lump, nipple discharge, breast pain, abnormal mammogram, abnormal US or breast enlargement Musc Musculoskeletal: Yes back problems and arthritis; no rheumatoid arthritis, gout or joint pain Cardio Cardiovascular: Yes murmur and heart attack; no pacemaker, heart disease, atrial fibrillation, high blood pressure, heart stent, palpitations, shortness of breat with exertion or chest pain Psych Psychiatric: No depression, anxiety or hearing voices Resp Respiratory: Yes shortness of breath, Yes sleep apnea, No cough, Yes COPD, No asthma, Yes emphysema, No wheezing Gastro Gastrointestinal: No abdominal pain, No nausea or vomiting, No diarrhea, No constipation, No blood in stool, No acid reflux, No hemorrhoids, No ulcers, No gallbladder problem, No black,tarry stools Kobe Hematologic: No blood thinners, No blood disorders, No bleeding, No anemia, No blood clots Neuro Neurologic: No system reviewed and no additional complaints, except as docu, No as per HPI, No abnormal walking, No abnormal hearing, No abnormal movements, No abnormal speech, No behavioral changes, No burning sensations, No confusion, No seizure-like activity, No unsteadiness, No dizziness, No localized weakness, No frequent falls, No headache(s), No lack of coordination, No loss of vision, No memory loss, Yes numbness, No other visual disturbances, No radiating pain, No restless legs, No sensory deficit, No fainting, Yes tingling, No tremor(s), No weakness, No other Exam Const General: cooperative Orientation: alert, oriented x3 Chest Breast Palpation: No nipple discharge Resp Effort & Inspection: normal respiratory effort Auscultation: clear to auscultation bilaterally Cardio Rate: regular rate Rhythm: regular rhythm Heart Sounds: murmur GI Inspection: non-distended Palpation: soft, nontender Assessment & Plan Problems 1. Malignant neoplasm of urinary bladder, unspecified site C67.9 2. Encounter for insertion of venous access port Z45.2 Plan Patient requires chemotherapy and requires a port for access. I discussed chest port placement with the patient in detail. I discussed port placement with him in detail as well as the risks of bleeding, infection, pneumothorax, DVT. The patient understands all the risks and is willing to proceed. Mendoza Lentz MD Pager: [facility] [address] [place] [address], [address] [place] [address] Office: I have re-examined the patient. There are no clinical changes since date of exam.
[2021-01-24] MEDS: Cefazolin 2 GM in 0.9% Normal Saline 100 ML IV (14:04)
[2021-01-24] MEDS: Bupiv/Epi 0.5% Mpf 30 ML Vial (14:29)
--- NOTE | 2021-01-24 14:34 | OP.PCM_ITS ---
Problem List (1) Encounter for adjustment and management of vascular access device Status: Acute (2) Bladder cancer Status: Acute Qualifiers: Report of Operation Date of Procedure: 01/24/21 Pre-Operative Diagnosis: Bladder cancer need for vascular access for chemotherapy Post-Operative Diagnosis: Same Surgery/Procedure Performed:: Ultrasound and fluoroscopy guided right chest port placement utilizing right IJ Description of Procedure: After obtaining informed consent patient was brought back to the operating room MAC anesthesia was induced and the right chest and neck were prepped in normal sterile fashion. Ultrasound was used to evaluate both IJs and the right IJ was selected. Next, using a needle, the right IJ was accessed and a guidewire was passed on into the superior vena cava under fluoroscopy guidance. A small incision was made over the puncture site and the dilator introducer was placed over the guidewire. Next this was capped and the pocket was made for the port. 1% lidocaine with epinephrine was injected in the proposed port site. An incision was made with scalpel. Electrocautery was used to make a pocket under the skin and subcutaneous tissue. Hemostasis was obtained. Next, the catheter was tunneled up to the neck incision site and placed through the introducer. The peel-away introducer was removed and the position of the catheter was confirmed on fluoroscopy. Next, the catheter was trimmed and attached to the port with the locking device. Interrupted 2-0 Vicryl sutures were used to anchor the port to the chest wall and then the port was placed inside the pocket. The pocket was then flushed with saline and the port irrigated with saline. There was good blood return and the port flushed easily. Next, heparin was injected into the port. The skin was closed with subcutaneous interrupted 3-0 Vicryl sutures. A single 3-0 Vicryl sutures placed under the skin at the neck incision site. Steri-Strips were placed as well as op sites. Patient tolerated procedure well, was taken to PACU in stable condition. Chest x-ray will be obtained. Grafts/Implants Used: 8 [place] Power[employer] - Admit VTE Documentation VTE Mechan Device Prophylaxis: SCD's
--- NOTE | 2021-01-24 14:36 | DCINST_ITS ---
Discharge Diet: No Restrictions - Pain medication may cause nausea. You should typically eat light foods as you take your pain medication. Discharge Activity: Return to Normal Activity, May Shower - with your bandage in place in 1-2 days after surgery. DO NOT SHOWER WHEN YOUR PORT IS ACCESSED. Call your doctor if your incision/area has: Continuous Slow Oozing, Sudden Increased Bleeding, Increased Pain/ Swelling, Increased Redness Call your doctor if you observe: Fever of 101 or Higher Remove Dressing in (days):: 3 - When you remove the bandage, leave the steri- strips intact until they fall off. Allergies/Adverse Reactions: Allergies No Known Allergies Allergy (Verified 01/24/21 11:09) Medications to take at Discharge albuterol sulfate 2.5 mg INHALATION Q4H PRN 03/12/18 duloxetine 60 mg capsule,delayed release 60 mg PO BID cap 03/12/18 gabapentin 800 mg tablet 800 mg PO TID 03/12/18 omega-3 fatty acids 1,000 mg capsule 1,000 mg PO QDAY 03/12/18 ipratropium 0.5 mg-albuterol 3 mg (2.5 mg base)/3 mL nebulization soln 3 ml INHALATION Q6H #180 ml 03/18/18 Carbidopa/Levodopa 50/200 [Sinemet CR] 1 tab PO 4X/DAY 12/29/20 Insulin Glargine [Lantus (BKC)] 22 units SC DAILY PRN PRN 12/29/20 Fenofibrate 160 mg PO DAILY 01/14/21 Glimepiride [Amaryl] 4 mg PO DAILY 01/14/21 Pioglitazone [Actos] 45 mg PO DAILY 01/14/21 Primidone [Mysoline] 250 mg PO TID 01/14/21 Simvastatin [Zocor] 40 mg PO QHS 01/14/21 Tamsulosin HCl [Flomax] 0.4 mg PO DAILY 01/14/21 Topiramate [Topamax] 50 mg PO BID 01/14/21 Lidocaine/Prilocaine [Lidocaine-Prilocaine Cream] 1 applicatio TP DAILY PRN PRN 30 Days #1 tube 01/19/21 Ondansetron [Ondansetron Odt] 8 mg PO Q8H PRN PRN 10 Days #30 tab.rapdis 01/19/21 Primary Care Physician: Ruben Angela UNDERCOLLAR BASTER, UNDERCOLLAR BASTER-C [Primary Care Provider] - Test Results: Test results from this visit will be discussed in further detail at your follow- up appointment, if applicable. Please Follow Up With: Mendoza Lentz MD When: As needed. [phone]
--- NOTE | 2021-01-24 14:40 | RAD_ITS ---
STUDY: X-RAY CHEST REASON FOR EXAM: Male, 80 years old. pacu -- in pacu TECHNIQUE: AP COMPARISON: Fluoroscopy from earlier today FINDINGS: Right jugular chest port is similar in appearance with tortuosity of the catheter apex and catheter tip terminating in the upper SVC. EKG leads project over the chest. The lungs are clear and expanded. There is no demonstrated pleural abnormality. Normal size heart. Sternal wires and mediastinal surgical clips compatible with prior CABG. Normal visualized pulmonary arteries. Normal visualized aortic arch and descending thoracic aorta. Normal visualized thoracic spine. Normal visualized ribs, clavicles, and shoulders. There is no demonstrated abnormality of the visualized soft tissue structures of the upper abdomen. RAD/CXR for Line Placement IMPRESSION: Right jugular chest port with apical catheter tortuosity and potential kinking, new since fluoroscopic image earlier today. Electronically Signed: Jude Sandhu MD ([place]) at 15:48 EST , Service support ,
--- NOTE | 2021-01-24 14:49 | RAD_ITS ---
STUDY: X-RAY CHEST REASON FOR EXAM: Male, 80 years old. PORT ADJUSTMENT #2 TECHNIQUE: AP COMPARISON: Earlier today FINDINGS: Right jugular chest port is similar in appearance with angulation of the catheter apex and catheter tip terminating in the upper SVC. EKG leads project over the chest. The lungs are clear and expanded. There is no demonstrated pleural abnormality. Normal size heart. Sternal wires and mediastinal surgical clips compatible with prior CABG. Normal visualized pulmonary arteries. Normal visualized aortic arch and descending thoracic aorta. Normal visualized thoracic spine. Normal visualized ribs, clavicles, and shoulders. There is no demonstrated abnormality of the visualized soft tissue structures of the upper abdomen. RAD/CXR for Line Placement IMPRESSION: Stable right jugular chest port with catheter angulation, potential kinking. Electronically Signed: Jude Sandhu MD ([place]) at 15:48 EST , Service support ,
--- NOTE | 2021-01-24 14:49 | RAD_ITS ---
STUDY: X-RAY CHEST REASON FOR EXAM: Male, 80 years old. PORT ADJUSTMENT #3 TECHNIQUE: AP COMPARISON: Earlier today FINDINGS: Right jugular chest port is similar in appearance with angulation of the catheter apex and catheter tip terminating in the upper SVC. EKG leads project over the chest. The lungs are clear and expanded. There is no demonstrated pleural abnormality. Normal size heart. Sternal wires and mediastinal surgical clips compatible with prior CABG. Normal visualized pulmonary arteries. Normal visualized aortic arch and descending thoracic aorta. Normal visualized thoracic spine. Normal visualized ribs, clavicles, and shoulders. There is no demonstrated abnormality of the visualized soft tissue structures of the upper abdomen. RAD/CXR for Line Placement IMPRESSION: Stable right jugular chest port with catheter angulation, potential kinking. Electronically Signed: Jude Sandhu MD ([place]) at 15:46 EST , Service support ,
== END 2021-01-24 15:35 | disposition home or self-care (01) ==
LOC: SDC 10:50 → AC 10:50
PROVIDERS: PCP Nurse Practitioner Family; Referring Provider Surgery; Visit Provider Surgery
PROC: (CPT 36561; principal; 2021-01-24 12:15)
DX: Z45.2 Encounter for adjustment and management of vascular access device (principal); C67.9 Malignant neoplasm of bladder, unspecified; I12.9 Hypertensive chronic kidney disease with stage 1 through stage 4 chronic kidney disease, or unspecified chronic kidney disease; I25.2 Old myocardial infarction; E11.22 Type 2 diabetes mellitus with diabetic chronic kidney disease; N18.30 Chronic kidney disease, stage 3 unspecified; N17.9 Acute kidney failure, unspecified; D63.1 Anemia in chronic kidney disease; I25.10 Atherosclerotic heart disease of native coronary artery without angina pectoris; I27.20 Pulmonary hypertension, unspecified; E11.40 Type 2 diabetes mellitus with diabetic neuropathy, unspecified; E78.00 Pure hypercholesterolemia, unspecified; G20 Parkinson's disease; J43.9 Emphysema, unspecified; F17.210 Nicotine dependence, cigarettes, uncomplicated; E66.9 Obesity, unspecified; Z68.33 Body mass index [BMI] 33.0-33.9, adult; Z95.1 Presence of aortocoronary bypass graft; Z79.4 Long term (current) use of insulin; Z79.899 Other long term (current) drug therapy; Z20.822 Contact with and (suspected) exposure to COVID-19
CPT/HCPCS: 36561; 71045; 77001; 82962; 87426; C9803; J7120; A4216; C1788

== ENCOUNTER → 2021-01-25 15:53 | Outpatient (CLI) | payer MEDICARE, SELFPAY ==
[2021-01-17 10:43] VITALS: BMI 34.0
[2021-01-24 11:10] VITALS: BMI 33.6
--- NOTE | 2021-01-25 15:58 | CT_ITS ---
STUDY: CT CHEST WITH CONTRAST REASON FOR EXAM: Male, 80 years old. INITIAL STAGING URINARY BLADDER CANCER RADIATION DOSAGE (If Supplied By Facility): CTDIvol = ( 14.74 ) mGy, DLP = ( 605.46 ) mGycm TECHNIQUE: Transaxial imaging was performed following intravenous administration of IV 100mL Isovue-370. Multiplanar coronal and sagittal images were reformatted. Individualized dose optimization techniques were used for this CT. COMPARISON: Comparison is made with prior study dated 02/28/2018. FINDINGS: A right-sided portacatheter is seen with the tip in the superior vena cava. Small benign-appearing bilateral axillary lymph nodes. Stable minimal scarring in the posterior medial aspect of the right upper lobe. There is no demonstrated pleural abnormality. Sternal cerclage wires and vascular clips are present from a prior sternotomy and coronary artery bypass graft procedure (CABG). There are calcifications of the coronary arteries. Normal mediastinum. Normal hilar regions. Normal enhanced pulmonary arteries. There is atherosclerotic calcification of the aortic arch with tortuosity and elongation of the aortic arch and descending thoracic aorta. There are multi-level degenerative changes of the thoracic spine. 1.7 cm benign adenoma in the right adrenal gland. CT/Chest WITH Contrast IMPRESSION: No acute abnormalities seen. Electronically Signed: Og Oshea MD at 8:58 EST , Service support ,
[2021-01-25] MEDS: 0.9% Saline Lock 10 ML Syringe IV (16:15)
== END ==
PROVIDERS: PCP Nurse Practitioner Family; Referring Provider Internal Medicine Hematology & Oncology; Visit Provider Internal Medicine Hematology & Oncology
DX: C67.9 Malignant neoplasm of bladder, unspecified (principal)
CPT/HCPCS: 71260; Q9967; A4216

== ENCOUNTER → 2021-03-11 09:38 | Outpatient (CLI) | payer MEDICARE, SELFPAY ==
[2021-03-09 10:23] VITALS: BMI 35.2
== END ==
PROVIDERS: PCP Nurse Practitioner Family; Visit Provider Internal Medicine Critical Care Medicine
DX: R69 Illness, unspecified (principal)

== ENCOUNTER → 2021-04-19 07:33 | Outpatient (CLI) | payer MEDICARE, SELFPAY ==
[2021-04-06 10:55] VITALS: BMI 35.5
[2021-04-13 11:37] VITALS: BMI 35.5
--- NOTE | 2021-04-19 07:35 | CT_ITS ---
STUDY: CT CHEST, ABDOMEN T PELVIS WITH CONTRAST REASON FOR EXAM: Male, 81 years old. Urinary bladder CANCER RESTAGING POST CHEMO PRIOR TO SURGERY RADIATION DOSAGE (If Supplied By Facility): CTDIvol = ( 23.02 ) mGy, DLP = ( 3388.69 ) mGycm TECHNIQUE: Transaxial imaging was performed following intravenous administration of IV 100mL Isovue-370. Individualized dose optimization techniques were used for this CT. COMPARISON: Comparison is made with prior examination dated 01/25/2021. FINDINGS: Stable small benign-appearing bilateral axillary. Right-sided port catheter is seen with the tip in the superior vena cava. CHEST Stable minimal scarring along the posterior medial aspect of the right upper lobe. No new abnormality is seen. There is no demonstrated pleural abnormality. There are calcifications of the coronary arteries. Sternal cerclage wires and vascular clips are present from a prior sternotomy and coronary artery bypass graft procedure (CABG). Normal mediastinum. Normal hilar regions. Normal unenhanced pulmonary arteries. Normal aorta arch and descending thoracic aorta. There are multi-level degenerative changes of the thoracic spine. Small gallstone along the dependent portion of the gallbladder. Stable 1.7 cm benign adenoma in the right adrenal gland. ABDOMEN Normal liver. Tiny linear gallstone along the dependent portion of the gallbladder. Normal spleen. Normal pancreas. There is a small, circumscribed, smooth, low attenuation right adrenal mass, consistent with an adrenal adenoma. This measures 1.7 cm. This is unchanged. Normal left adrenal gland. Normal right kidney. Normal left kidney. Normal visualized stomach. Normal small intestine. There are multiple colonic diverticula consistent with diverticulosis. The appendix is visualized and appears normal. There is diffuse atherosclerotic calcification of the abdominal aorta and its major visceral branches, without a demonstrated aneurysm. Normal inferior vena cava. Normal retroperitoneum. Small bilateral inguinal hernias containing fat. There are diffuse degenerative changes of the visualized lumbar spine. PELVIS Mild degree of diffuse bladder wall thickening. There is evidence of prior TURP. Normal visualized small intestine. There are multiple colonic diverticula of the sigmoid colon consistent with chronic diverticulosis. There is no pelvic fluid. There is no pelvic lymphadenopathy or mass lesion. There is diffuse atherosclerotic calcification of the pelvic arteries. Small bilateral inguinal hernias containing fat. There are diffuse degenerative changes of the visualized lumbar spine. CT/CT Chest, Abd, Pel w/Contrast IMPRESSION: Stable examination. Electronically Signed: Og Oshea MD at 11:02 EDT , Service support ,
[2021-04-19] MEDS: 0.9 % NaCl (Sterile) Posiflush 10 mL IV (07:45)
[2021-04-19] MEDS: 0.9% Saline Lock 10 ML Syringe IV (08:05)
[2021-04-19 08:34] LABS: Hematocrit 31.1 % (40-54); Hemoglobin 9.7 g/dL (13.0-16.5); Mean Corp Hgb Conc 31.2 g/dL (32-36); Mean Corpuscular Hgb 33.3 pg (27.0-32.0); Mean Corpuscular Volume 106.9 fL (80-94); Mean Platelet Vol. 9.5 fl (6.2-12.0); POSITIVE MORPHOLOGY YES; Platelet Count 325 K/mm3 (150-450); RBC Distribution Width CV 18.2 % (11.6-14.6); RBC Distribution Width SD 70.8 fl (35.1-43.9); Red Blood Count 2.91 M/mm3 (4.6-6.2); White Blood Count 5.1 K/mm3 (4.4-11.0)
[2021-04-19 08:38] LABS: ERROR RESULT FLAG YES
[2021-04-19 08:58] LABS: ALB/GLOB Ratio 0.9 RATIO (0.9-2.4); AST(SGOT) 17 U/L (15-37); Alanine Aminotransfer ALT/SGPT 19 U/L (16-61); Albumin, Serum 3.5 g/dL (3.2-5.0); Alkaline Phosphatase 118 U/L (45-117); Anion Gap 2 (5-15); BUN 28 mg/dL (7-18); BUN/Creat Ratio 23.3 RATIO (10-20); Calcium,Total 8.6 mg/dL (8.5-10.1); Chloride 108 mmol/L (98-107); Cholesterol 153 mg/dL (200); EST Glomerular Filtration Rate 62 mL/min (>60); Est Glom Filt Rate - Afr Amer 75 mL/min (>60); Globulin 3.8 g/dL (2.2-4.2); Glucose 134 mg/dL (74-106); High Density Lipoprotein 44 mg/dL; Protein, Total 7.3 g/dL (6.4-8.2); Sodium Level 136 mmol/L (136-145); Triglycerides 146 mg/dL; Very Low Density Lipoprotein 29 mg/dL (5-40)
[2021-04-19 09:06] LABS: Hemoglobin A1c 6.4 % (3.8-5.6)
== END ==
PROVIDERS: PCP Nurse Practitioner Family; Referring Provider Internal Medicine Hematology & Oncology; Visit Provider Internal Medicine Hematology & Oncology
DX: C67.9 Malignant neoplasm of bladder, unspecified (principal); C79.9 Secondary malignant neoplasm of unspecified site; C61 Malignant neoplasm of prostate; E11.9 Type 2 diabetes mellitus without complications; I10 Essential (primary) hypertension; E78.2 Mixed hyperlipidemia
CPT/HCPCS: 36415; 71260; 74177; 80053; 80061; 83036; 85027; Q9967; A4216

== ENCOUNTER → 2021-04-22 08:00 | Outpatient (CLI) | payer MEDICARE, SELFPAY ==
[2021-04-06 10:55] VITALS: BMI 35.5
[2021-04-13 11:37] VITALS: BMI 35.5
--- NOTE | 2021-04-22 08:10 | NM_ITS ---
CLINICAL: 81-year-old male with history of carcinoma of the urinary bladder. WHOLE BODY 99m Tc MDP RADIONUCLIDE BONE SCINTIGRAPHY COMPARISON: CT of the chest, abdomen and pelvis reports 04/19/2021 FINDINGS: Following the intravenous administration of 23.6 mCi of 99m Tc MDP, whole body bone images reveal: 1. A diffuse increase in radiopharmaceutical concentration is demonstrated in the third lumbar vertebra. 2. Facilitated uptake is observed in the mid cervical spine posteriorly on the left and right, ninth thoracic vertebra posteriorly on the right, acromioclavicular and sternoclavicular compartments of both shoulders, left wrist, right hand, the right knee, left mid and forefoot. 3. The remaining skeletal structures are scintigraphically unremarkable with normal-appearing renal images and urinary bladder activity identified. Asymmetric increased tracer uptake is noted in the right maxilla most consistent with periodontal disease and/or periostitis. NM/Bone Scan Whole Body IMPRESSION: 1. The increase in radiopharmaceutical concentration defined in the third lumbar vertebra is most consistent with trauma-compression fracture. Plain film radiography correlation is recommended in the setting of known urinary bladder neoplasia. 2. 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 3. There is no definitive typical scintigraphic evidence of diffuse axial skeletal metastatic disease on the current examination. Electronically Signed: Ruben Dominguez DO at 22:40 EDT Tel , Service support ,
== END ==
PROVIDERS: PCP Nurse Practitioner Family; Referring Provider Internal Medicine Hematology & Oncology; Visit Provider Internal Medicine Hematology & Oncology
DX: C67.4 Malignant neoplasm of posterior wall of bladder (principal); C61 Malignant neoplasm of prostate; C79.51 Secondary malignant neoplasm of bone
CPT/HCPCS: 78306; A9503

== ENCOUNTER 2021-05-06 10:59 | Inpatient (IN) | payer MEDICARE, SELFPAY ==
[2021-04-26 15:32] VITALS: BMI 35.7
[2021-05-02 10:13] VITALS: BMI 35.7
[2021-05-06] VITALS (17 sets, daily range): BP systolic 78–111; BP diastolic 44–59; PULSE 49–63; RESP 16; TEMP 35.9–36.4; O2SAT 95–100; BMI 34.9
--- NOTE | 2021-05-06 | IMM_PTH ---
PATIENT: AKASH GREGORY LOC: MS3 U#:[id number] AGE/SX: 81/M ROOM: [facility] – [place] RE05/06/[address]: Dr. Markell Pantoja MD : 1940 BED: 1 DIS: 05/13/2021 SPEC #: [id number] RECD: 05/12/21 12:52 STATUS: CHARLES REQ #: [id number] HOMA: 05/06/21 00:[address]: Markell Pantoja DEPT: IMMUNOHISTOCHEMISTRY RECD BY: Romina Purdy ENTERED: 05/12/21 12:53 SP TYPE: IMMUNO OTHR DR: MD Ruben Benitez, CUSTOMER COUNTER REPRESENTATIVE-C Tissues: E - Urinary bladder, NOS Procedures: CK14 (add) CK20 (add) CK8 (add) P53 (add) 34BE12 (add) CD44 (add) CK7 (initial) PHYSICIAN & INSTITUTION [place] [id number] SPECIMEN INFORMATION: Tissue Source: E ? Bladder and prostate Clinical Info: Malignant neoplasm of overlapping sites of bladder Specimen Number: [id number] CPT code: 82831, 27382 x6 METHODOLOGY: Deparaffinized sections of prefer/formalin-fixed tissue or PAP/DQ stained slides are incubated with monoclonal/polyclonal antibodies/oligonucleotide probes. Localization is made via biotin free immunoperoxidase method. Appropriate controls are performed and reacted as expected. Results on target cell population are indicated in the following table: RESULTS: ANTIBODY / CLONE RESULT Block E8 CK7 (OV-TL12/30) positive CK8 (40ujuvV99) positive CK20 (KS20.8) negative 34BE12 (34BE12) positive CK14 (LL002) positive P53 (DO-7) negative anti-CD44 (SP37) positive These tests were developed and their performance characteristics determined by [facility]. They may not have been cleared or approved by the U.S. Food and Drug Administration. The FDA has determined that such clearance or approval is not necessary. The above immunohistochemical/dualISH markers are ordered and reviewed by the Pathologist. INTERPRETATION: E. Bladder and prostate, cystoprostatectomy: Consistent with urothelial carcinoma. AM:delia 05/16/2021
--- NOTE | 2021-05-06 | URE_PTH ---
PATIENT: AKASH GREGORY LOC: MS3 U#:[id number] AGE/SX: 81/M ROOM: [facility] – [place], [place] RE05/06/[address]: Dr. Markell Pantoja MD : 1940 BED: 1 DIS: 05/13/2021 SPEC #: [id number] RECD: 05/06/21 15:58 STATUS: CHARLES REMarlon #: [id number] HOMA: 05/06/21 00:[address]: Markell Pantoja DEPT: SURGICAL PATHOLOGY RECD BY: Romina Purdy ENTERED: 05/09/21 07:32 SP TYPE: URETER BX OTHR DR: Dr. Mendoza Lentz, MD Ruben Angela, RUBBER FLAP TUBER MACHINE OPERATOR-C Tissues: A - Ureter, NOS B - Ureter, NOS C - Lymph node of pelvis, NOS D - Urinary bladder, NOS E - Urinary bladder, NOS Procedures: Decalcification bone/plaque Frozen Section (charge) Surgery Specimen Level IV Surgery Specimen Level V Surgery Specimen Level HEADER OPERATION: Complete robotic cystectomy with ureteroileal conduit PRE-OP DIAGNOSIS: Malignant neoplasm of overlapping sites of bladder TISSUE SUBMITTED: A - Distal right ureter, FS at 1556, B - Distal left ureter, FS at 1601, C - Right lymph node, D - Posterior edge, E - Bladder and prostate FROZEN SECTION DIAGNOSIS A. Right distal ureter, biopsy: Negative for carcinoma. B. Left distal ureter, biopsy: Negative for carcinoma. AM:delia 05/06/21 MICROSCOPIC DIAGNOSIS A. Right distal ureter margin, biopsy: No evidence of carcinoma. B. Distal left ureteral margin, biopsy: No evidence of carcinoma. C. Right pelvic lymph nodes, regional lymphadenectomy: Four out of four lymph nodes, negative for carcinoma. D. Posterior edge, biopsy: Negative for carcinoma. Phlebolith. E. Bladder and prostate, cystoprostatectomy: Invasive urothelial carcinoma. Prostatic adenocarcinoma. See cancer checklists below. AM:delia 05/12/2021 COMMENT BLADDER CANCER SUMMARY: Procedure ? Cystoprostatectomy Tumor site ? Trigone area Tumor size: Greatest dimension ? 0.5 cm Additional dimensions ? 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 urothelial dysplasia Histologic grade ? high grade Tumor configuration ? flat and focally invasive Tumor extension ? tumor invades muscularis propria Margins: Uninvolved by invasive carcinoma and carcinoma in situ/noninvasive urothelial carcinoma. Uninvolved by invasive carcinoma. Lymphvascular invasion ? not identified Lymph nodes: Number of lymph nodes involved ? 0 Number of lymph nodes examined - 4 Additional pathologic findings: Urothelial carcinoma in situ. Urothelial dysplasia, low grade. Adenocarcinoma of prostate. Inflammation/regenerative changes. Cystitis cystica et glandularis PATHOLOGIC STAGE: pT1 pN0 Mx Note: Only a very small focus of invasive carcinoma is present in the trigone in background of previous surgical TUR. Several sections of bladder away from this area show high-grade urothelial dysplasia and insitu carcinoma. PROSTATE CANCER (RADICAL) SUMMARY: Procedure - Cystoprostatectomy Prostate Size: Weight ? not applicable Size ? 4 x 4 x 3.7 cm Histologic type - adenocarcinoma Histologic grade ? 6 (3+3) Percent of Pattern 4: 0 Percent of Pattern 5: 0 Intraductal carcinoma - not identified Tumor Quantitation ? 1 x 1 x 0.6 cm Extraprostatic extension - not identified Urinary bladder neck invasion - not identified Seminal Vesicle Invasion - not applicable Lymphvascular Invasion: - not identified Perineural Invasion - not identified Margins - free of carcinoma Regional Lymph Nodes: Number of lymph nodes involved by carcinoma ? 0 Total number of lymph nodes examined - 4 Treatment effect - unknown Additional pathologic findings - Chronic inflammation and benign hyperplasia. PATHOLOGIC STAGE: T2 N0 Mx The above summary is in compliance with [employer] [place] [employer] (CAP) Cancer Protocols Checklist and [place] [employer] Committee on Cancer (AJCC), Staging Manual, 8th Ed. E. Immunohistochemistry ([id number]) supports the above diagnosis. 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 Case has been reviewed in consultation with Dr. Sotelo who concurs with the above diagnosis. IDC:[email or web address] MICROSCOPIC DESCRIPTION Slides are reviewed. GROSS DESCRIPTION A - Received fresh for frozen section consultation labeled with the patient's name is a specimen designated distal right ureter. The specimen consists of a tubular fragment of tissue measuring 1 x 0.5 cm. The specimen is submitted in its entirety for frozen section consultation in one cassette. / AM: 05/09/21 B - Received fresh for frozen section consultation labeled with the patient's name is a specimen designated distal left ureter. The specimen consists of a tubular fragment of tissue measuring 1 x 0.5 cm. The specimen is submitted in its entirety for frozen section consultation in one cassette. / AM: 05/09/21 C - Received in fixative is one container labeled with the patient's name and designated right lymph nodes. The specimen consists of two irregular fragments of yellow soft tissue ranging in size from 2 to 5 cm. Dissection reveals several haider, fatty nodules ranging in size from 0.5 to 2.5 cm. The nodules are submitted in their entirety in two cassettes. / AM: 05/09/21 D - Received in fixative is one container labeled with the patient's name and designated posterior edge. The specimen consists of two irregular fragments of dark to light haider tissue ranging in size from 0.5 to 2 cm. The larger fragment contains a firm, indurated area with possible microcalcifications. The specimen is sectioned and totally submitted in one cassette after decalcification. / AM: 05/09/21 E - Received in fixative is one container labeled with the patient's name and designated bladder and prostate. The specimen consists of prostate and bladder (cystoprostatectomy) specimen measuring 14 x 13 x 5 cm. The right and left ureters measure approximately 0.6 cm in average length and 0.4 cm in average diameter. / AM: 05/09/21 The prostate gland measures 4 cm craniocaudally, 4 cm transversely and 3.7 cm anterior-posteriorly. The seminal vesicles measure 5.6 x 2.7 cm and are grossly unremarkable. The right vas deferens measures 4.2 cm in length and 0.5 cm in diameter. The left vas deferens segment measures 4 cm in length and 0.5 cm in average diameter. The bladder measures 8 x 7 x 5 cm. The entire urinary bladder wall is thickened ranging in thickness from 1 to 1.6 cm. The urothelial surface is irregular and jagged in appearance. Neoplasm does not appear to grossly involve the urinary bladder and soft tissue margins of excision are grossly unremarkable. Concrete Stone Finishing Supervisor sections are submitted as follows: 1 & 2 - vascular margins of excision, 3 - right lateral urinary bladder wall, 4 - left lateral urinary bladder wall, 5 - dome of bladder, 6 - posterior wall of bladder, 7??anterior wall of bladder, 8 - trigone of bladder, 9-11 - mid portion of bladder, 12 - prostate with distal urethra, 13-15 - prostate, 16 - right seminal vesicle and right ureter, 17??left seminal vesicle and left ureter, 18-26 - additional sections of bladder and prostate, 27 - right and left ureter (right inked blue). / AM:delia 05/10/21 TC:0 CPT: 36554 x3, 86592, 61081, 91619 x2, 75464
[2021-05-06] MEDS: Lactated Ringers 1,000 ML 100 ML IV (11:00)
[2021-05-06 12:00] LABS: Bedside Glucose 130 mg/dL (70-110)
--- NOTE | 2021-05-06 12:33 | NURSING ---
Was asked by Dr Lentz this am to zay patient for a stoma. Pt is scheduled for cystectomy with ureteroileal conduit or sigmoid bladder per Dr Pantoja and Dr Lentz. In AC room to see patient. and granddaughter present with patient. Abdomen had been marked by Dr Pantoja. Did have patient sit at edge of bed to verify the stomal marking was no in a crease. no crease noted. Marking is also 3 fingerbreadths from the umbilicus. patient stated he does wear his pants below the umbilical line, so the current marking is appropriate. teaching booklet given to family to look over during surgery. will continue ostomy teaching with pt and family post op. Pt and family deny questions. anesthesia in to see patient at this time.
[2021-05-06] MEDS: Cefotetan 2 GM in 0.9% NS 100 ML IV (13:18)
[2021-05-06] MEDS: Bupivacaine Mpf 0.5% 30 ML VIAL (15:00)
--- NOTE | 2021-05-06 18:39 | OP.PCM_ITS ---
Report of Operation Date of Procedure: 05/06/21 Pre-Operative Diagnosis: Bladder cancer invasive, status post chemotherapy Post-Operative Diagnosis: The same Surgery/Procedure Performed:: Radical cystoprostatectomy, bilateral lymph node dissection and formation of an ileal conduit. Description of Surgical Findings:: 81-year-old male who earlier this year was found to have invasive bladder cancer at that point we talked about the options of management and he elected to have neoadjuvant chemotherapy followed by radical prostatectomy. He completed 3 cycles of chemotherapy he did fairly well with this, after chemotherapy was completed metastatic work-up was negative for any metastatic disease and he wishes to to proceed with a radical cystectomy and formation of an ileal conduit. Patient was taken back to the operating room and after smooth induction of general anesthesia the abdomen penis and testicles are shaved prepped and draped in usual sterile fashion, I then started off in the umbilicus made a small incision in the umbilicus dissected down to the anterior fascia placed a Veress needle into the peritoneal cavity insufflated the peritoneal cavity with CO2 gas and then placed a trocar into the abdomen. We then obtained pneumoperitoneum we then placed our right and left trochars and second trocar air seal port and suction port. At this point we started the case robotically but we will plan to go open and therefore this was an open case at the end but we started to go robotically was a conversion to open is a planned conversion open to finish up with an open case. Started off robotically dissected the sigmoid colon off the lateral wall I then identified that he had a hernia in the right inguinal hernia area and the hernia was reduced there was bowel inside the hernia and this was reduced. The hernia was not repaired since we were can have a contaminated case we did not want to put mesh in the abdomen. I then started by dissecting out and dissected out the right ureter all the way down to the bladder I then dissected out the left ureter all the way down to the bladder I then dissected the space between the ureter and the pelvic sidewall all the way to the prostate on the right side and the left side and then dissected posterior to the prostate elevating the prostate off the rectum I then pulled out of the pelvis and then we came on top of the bladder we dropped the bladder create the space of Retzius we then came over the prostate and transected through the dorsal vein complex a stitch was placed in dorsal vein complex to obtain hemostasis. We then transected through the urethra pulled out the catheter I then elevated the prostate off the levator muscles off the rectum and then dissected the prostate and bladder off the rectum and then the bladder was free inside the abdomen. This took several hours to do this part of the procedure. Then we did a open conversion undocked the robot made a mini lap incision and then placed a retractor in the abdomen after the incision was made in the midline Dr. Anderson then came over and presented to the OR to assist with further the case he was going to do the conduit in the anastomosis. This point after making incision the bowel was packed off and then looking deep in the pelvis with some bleeding took some time to get this bleeding controlled had to you retract protect this coming from the lateral edges of the deep pelvic mesentery area eventually it slowed down after using some clips and cautery. Then the 15 cm segment of ileum was identified we marked the distal end and then we performed an anastomosis of the small intestine to each other in [id number] fashion using fabien the mesentery opening was closed and stitch was placed in the crotch of the anastomosis with a silk stitch. Then at this point anastomosis was done between the ureters and the conduit we did a Ingris style anastomosis separate anastomosis spatulating both ends of the ureters and using 3-0 Vicryl to anastomosis the ureters to the conduit both sides of the conduit. Once the anastomosis was completed then the pelvis was washed out during anastomosis we placed stents long 5 Nepali open-ended catheters on both sides then the end of the conduit was pulled up through the stoma site we dissected open the stoma site cauterized some bleeders from the rectus muscle made a cruciate incision in the anterior fascia and then pulled the stoma up to the anterior fascia weight about 3 cm the stoma above the fascia, then the conduit was then secured to the fascia with 4-0 silk stitches to prevent his parastomal hernia we then completed the formation the conduit and a stoma by everting the stoma with fluoroscopy Vicryls all the way around the stoma and. And then once the stoma was matured with stitches had a nice everting stoma with the stoma was nice 2 cm about the skin no blocking the skin a nice smooth skin. Then at this point we irrigated the abdomen copiously and suctioned out the pelvis and then we closed the midline incision with a running PDS #1. Starting from the top into the bottom and closing the midline. After the incision was closed then we closed her laparoscopic incisions with subcuticular stitches and Steri-Strips and then we closed the midline incision with fabien patient was extubated taken back to PACU in stable condition will get blood work in the PACU. Blood loss during the case was about 1 L of blood was lost replacement of fluids about 3 crystalloids of fluids urine output was not measured during the entire case. He was extubated and clinically stable and taken back to PACU in good condition. Fair ly long case took about 6 and half hours was present during the entire case.
--- NOTE | 2021-05-06 18:49 | PCM.OPRPT ---
Problems Associated Problem List Diagnoses (1) Bladder cancer: (2) Prostate cancer: Report of Operation Date of Procedure: 05/06/21 Pre-Operative Diagnosis: Bladder and prostate cancer Post-Operative Diagnosis: Same Surgery/Procedure Performed:: Ureteroileal conduit with anastomosis Description of Procedure: I was assisting Dr. Pantoja with his surgery by performing his ileal conduit. The abdomen was incised and Dr. Pantoja entered the abdomen. Next the wound protector was placed. The ileocecal valve was identified. 40 cm proximal to this area was marked and 15 cm of small bowel was selected for ileal conduit and the proximal end was marked. A ARIEL stapler was used to transect the small bowel at the markings. Next the impact LigaSure was used to take a small segment of mesentery and the small bowel section used for the conduit was inspected and had good blood flow and was nice and pink. Next the proximal and distal small bowel were trimmed at the distal staple line and a 75 ARIEL stapler was used to make an anastomosis. The staple line was checked and was hemostatic. Next a 60 TX stapler was used to close the enterostomy. There is good hemostasis. The crotch suture was placed using 3-0 silk suture. The mesenteric defect was closed using a running 3-0 Vicryl suture. Next fashion to the ureteroileal anastomoses and placed stents. Next in the right abdomen an area was selected and skin was removed using cautery. The fat was dissected until the fascia was reached and a cruciate incision was made the fascia and the muscle was split and the posterior sheath was incised in a cruciate fashion as well. 2 fingers were used to dilate the opening and a Josafat was used to bring the distal small bowel conduit through and it was sutured to the fascia using 3-0 silk suture. Next the stoma was matured using Alicia fashion interrupted 3-0 Vicryl sutures. There was good blood supply to the distal conduit and it was pink with no signs of ischemia. A stoma appliance was placed. Next the abdomen was irrigated and suctioned dry and a drain was placed. The fascia was closed with a running #1 PDS suture from top and bottom meeting in the middle. The skin incisions were closed with Monocryl suture as well as the midline incision closed with fabien. Dressings were applied the patient was taken to PACU in stable condition. Please see 's dictation for the remainder of the case.
[2021-05-06 21:06] LABS: Bedside Glucose 187 mg/dL (70-110)
[2021-05-06 21:10] LABS: Hemoglobin 9.3 g/dL (13.0-16.5); Mean Corp Hgb Conc 32.1 g/dL (32-36); Mean Corpuscular Hgb 33.9 pg (27.0-32.0); Mean Corpuscular Volume 105.8 fL (80-94); Mean Platelet Vol. 9.4 fl (6.2-12.0); POSITIVE DIFFERENTIAL YES; Platelet Count 185 K/mm3 (150-450); RBC Distribution Width SD 61.7 fl (35.1-43.9); Red Blood Count 2.74 M/mm3 (4.6-6.2); White Blood Count 16.7 K/mm3 (4.4-11.0)
[2021-05-06 21:15] LABS: Anion Gap 7 (5-15); BUN 23 mg/dL (7-18); BUN/Creat Ratio 15.2 RATIO (10-20); Calcium,Total 7.9 mg/dL (8.5-10.1); Chloride 110 mmol/L (98-107); Creatinine, Serum 1.51 mg/dL (0.70-1.30); EST Glomerular Filtration Rate 48 mL/min (>60); Est Glom Filt Rate - Afr Amer 58 mL/min (>60); Estimated Creatinine Clearance 38.38 ml/min; Glucose 192 mg/dL (74-106); Potassium 4.8 mmol/L (3.5-5.1); Sodium Level 139 mmol/L (136-145)
[2021-05-06 21:19] LABS: Scan Indicated on CBC? Y/N YES- FLAGS NOTED
[2021-05-06] MEDS: Lactated Ringers 1,000 ML 125 ML IV (22:22)
[2021-05-06] MEDS: Ciprofloxacin 400 MG/200 ML BAG 200 MG IV (22:46)
[2021-05-06] MEDS: DULoxetine Hcl 60 MG Capsule PO (22:49)
[2021-05-06] MEDS: Topiramate 50 MG Tablet PO (22:49)
[2021-05-06] MEDS: Primidone 250 MG Tablet PO (22:49)
[2021-05-06] MEDS: CARBIDOPA/LEVODOPA CR 50/200 Tablet PO (22:49)
[2021-05-06 23:01] LABS: Bedside Glucose 174 mg/dL (70-110)
[2021-05-07] VITALS (10 sets, daily range): BP systolic 96–132; BP diastolic 46–58; PULSE 63–91; RESP 16–18; TEMP 36.8–37.1; O2SAT 93–98
[2021-05-07] MEDS: Primidone 250 MG Tablet PO ×3 (06:05→21:17)
[2021-05-07] MEDS: Lactated Ringers 1,000 ML 125 ML IV (06:05)
[2021-05-07] MEDS: CARBIDOPA/LEVODOPA CR 50/200 Tablet PO ×4 (06:05→21:17)
[2021-05-07 06:25] LABS: Bedside Glucose 205 mg/dL (70-110)
--- NOTE | 2021-05-07 07:17 | PN.SURG_ITS ---
Subjective Subjective Patient is not having any flatus. His pain is controlled. No nausea or vomiting. Objective Data Objective Data Vital Signs: Vital Signs Temp Pulse Resp BP Pulse Ox 98.8 F 64 16 132/55 H 97 05/07/21 05:57 05/07/21 05:57 05/07/21 05:57 05/07/21 05:57 05/07/21 05:57 Oxygen Delivery Method Room Air Weight: 230 lb 2.601 oz Body Mass Index (BMI) 34.9 Intake & Output: Intake and Output for Last 24 Hours 05/05/21 05/06/21 05/07/21 23:59 23:59 23:59 Intake Total 5752.08 / 5812.08 909.58 / 909.58 Output Total 180 / 330 325 / 325 Balance 5572.08 / 5482.08 584.58 / 584.58 Lab / Micro Data Result Diagrams: 05/06/21 20:45 05/06/21 20:45 Labs: Laboratory Results - last 24 hr 05/06/21 05/06/21 05/06/21 11:25 11:49 20:45 WBC 16.7 H RBC 2.74 L Hgb 9.3 L Hct 29.0 L MCV 105.8 H MCH 33.9 H MCHC 32.1 RDW Std Deviation 61.7 H RDW Coeff of Yara 16.0 H Plt Count 185 MPV 9.4 Differential Comment SEE COMMENT Sodium Potassium Chloride Carbon Dioxide Anion Gap BUN Creatinine Estim Creat Clear Calc Est GFR (MDRD) Af Amer Est GFR (MDRD) Non-Af BUN/Creatinine Ratio Glucose Calcium POC Glucose 130 H Blood Type O POSITIVE Antibody Screen NEGATIVE Crossmatch See Detail 05/06/21 05/06/21 05/06/21 20:45 20:59 22:42 WBC RBC Hgb Hct MCV MCH MCHC RDW Std Deviation RDW Coeff of Yara Plt Count MPV Differential Comment Sodium 139 Potassium 4.8 Chloride 110 H Carbon Dioxide 22.0 Anion Gap 7 BUN 23 H Creatinine 1.51 H Estim Creat Clear Calc 38.38 Est GFR (MDRD) Af Amer 58 L Est GFR (MDRD) Non-Af 48 L BUN/Creatinine Ratio 15.2 Glucose 192 H Calcium 7.9 L POC Glucose 187 H 174 H Blood Type Antibody Screen Crossmatch 05/07/21 06:18 WBC RBC Hgb Hct MCV MCH MCHC RDW Std Deviation RDW Coeff of Yara Plt Count MPV Differential Comment Sodium Potassium Chloride Carbon Dioxide Anion Gap BUN Creatinine Estim Creat Clear Calc Est GFR (MDRD) Af Amer Est GFR (MDRD) Non-Af BUN/Creatinine Ratio Glucose Calcium POC Glucose 205 H Blood Type Antibody Screen Crossmatch Physical Exam Const oriented x3 and no apparent distress Resp normal respiratory effort Cardio regular rate and regular rhythm GI GI Narrative: Stoma is pink with blood-tinged urine in the bag Assessment & Plan Assessment/Plan (1) Bladder cancer: QUALIFIERS: Bladder location: posterior wall Qualified Code(s): 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 Hemoglobin was nine after one unit transfusion. Morning labs are pending. Patient is not passing any flatus yet. Once he starts beginning to pass flatus I will advance his diet as tolerated. Mendoza Lentz MD Pager: [facility] [address] [place] [address], [address] [place] [address] Office:
[2021-05-07] MEDS: Ipratropium/Albuterol Sulfate 3 ML AMPUL.NEB INHALATION ×3 (07:29→20:06)
--- NOTE | 2021-05-07 07:41 | PN.URO_ITS ---
Subjective Subjective Postoperative day #1 status post radical cystoprostatectomy doing really well blood pressure stable he had 1 unit of blood yesterday for low blood pressure and now this is resolved urine output is adequate. He is in no distress, he is comfortable in bed interactive talking. His abdomen is soft and benign. The st jenny is nice and pink and healthy with adequate urine output no clots. Objective Data Objective Data Vital Signs: Vital Signs Temp Pulse Resp BP Pulse Ox 98.8 F 64 16 132/55 H 97 05/07/21 05:57 05/07/21 05:57 05/07/21 05:57 05/07/21 05:57 05/07/21 05:57 Oxygen Delivery Method Room Air Weight: 104.4 kg Body Mass Index (BMI) 34.9 Intake & Output: Intake and Output for Last 24 Hours 05/05/21 05/06/21 05/07/21 23:59 23:59 23:59 Intake Total 5752.08 / 5812.08 909.58 / 909.58 Output Total 180 / 330 325 / 325 Balance 5572.08 / 5482.08 584.58 / 584.58 Lab / Micro Data Result Diagrams: 05/06/21 20:45 05/06/21 20:45 Labs: Laboratory Results - last 24 hr 05/06/21 05/06/21 05/06/21 11:25 11:49 20:45 WBC 16.7 H RBC 2.74 L Hgb 9.3 L Hct 29.0 L MCV 105.8 H MCH 33.9 H MCHC 32.1 RDW Std Deviation 61.7 H RDW Coeff of Yara 16.0 H Plt Count 185 MPV 9.4 Differential Comment SEE COMMENT Sodium Potassium Chloride Carbon Dioxide Anion Gap BUN Creatinine Estim Creat Clear Calc Est GFR (MDRD) Af Amer Est GFR (MDRD) Non-Af BUN/Creatinine Ratio Glucose Calcium POC Glucose 130 H Blood Type O POSITIVE Antibody Screen NEGATIVE Crossmatch See Detail 05/06/21 05/06/21 05/06/21 20:45 20:59 22:42 WBC RBC Hgb Hct MCV MCH MCHC RDW Std Deviation RDW Coeff of Yara Plt Count MPV Differential Comment Sodium 139 Potassium 4.8 Chloride 110 H Carbon Dioxide 22.0 Anion Gap 7 BUN 23 H Creatinine 1.51 H Estim Creat Clear Calc 38.38 Est GFR (MDRD) Af Amer 58 L Est GFR (MDRD) Non-Af 48 L BUN/Creatinine Ratio 15.2 Glucose 192 H Calcium 7.9 L POC Glucose 187 H 174 H Blood Type Antibody Screen Crossmatch 05/07/21 06:18 WBC RBC Hgb Hct MCV MCH MCHC RDW Std Deviation RDW Coeff of Yara Plt Count MPV Differential Comment Sodium Potassium Chloride Carbon Dioxide Anion Gap BUN Creatinine Estim Creat Clear Calc Est GFR (MDRD) Af Amer Est GFR (MDRD) Non-Af BUN/Creatinine Ratio Glucose Calcium POC Glucose 205 H Blood Type Antibody Screen Crossmatch Physical Exam Const alert and oriented x3 General Appearance: cooperative HEENT normocephalic, head/scalp atraumatic, EAC's normal and TM's normal bilaterally Eyes PERRL and EOMs intact bilaterally Pupil: sluggish Neck no lymphadenopathy, supple and no JVD General: trachea midline Lymph Lymphatic: no lymphadenopathy noted, lymphedema and lymphadenopathy Resp normal respiratory effort, normal air movement and clear to auscultation bilaterally Cardio regular rate, regular rhythm and peripheral pulses 2+ throughout GI soft to palpation, non-tender and non-distended GI Narrative: Stoma pink and intact and dressings are all clean and intact Extremity normal capillary refill and no clubbing, cyanosis or edema General Extremity: no tenderness to palpation of joints or extremities Skin no rashes or lesions noted General Skin Exam: turgor normal Lesions: no lesions Rashes: no rashes Neuro CN's II-XII intact bilaterally Speech: speech normal Motor Exam: strength 5/5 throughout; Negative for general weakness Psych thought process normal, cooperative and affect normal Appearance: appropriate Assessment & Plan Assessment/Plan (1) Bladder cancer: QUALIFIERS: Bladder location: posterior wall Qualified Code(s): 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 Continue with n.p.o. He needs to be out of bed into a chair and also if tolerated he can ambulate in the hallways today. Goal is to keep urine output about 30 cc/h and to minimize excessive fluids. Work on coughing deep breathing and await return of bowel function.
[2021-05-07 08:10] LABS: Absolute Lymphocyte Count 0.97 X10^3/uL (0.83-4.51); Absolute Neutrophil Count 12.8 X10^3/uL (2.0-7.7); Basophil# 0.03 X10^3/uL; Basophil% 0.2 % (0-1); Hematocrit 27.8 % (40-54); Hemoglobin 8.9 g/dL (13.0-16.5); Lymphocyte # 0.97 X10^3/ul (0.83-4.51); Lymphocyte % 6.4 % (19-41); Mean Corpuscular Hgb 34.5 pg (27.0-32.0); Mean Corpuscular Volume 107.8 fL (80-94); Mean Platelet Vol. 9.2 fl (6.2-12.0); Monocyte# 1.12 X10^3/uL; Monocyte% 7.4 % (0-10); NRBC Flagged by Analyzer 0 % (0-5); Neutrophil # 12.82 X10^3/uL (2.7-7.7); Neutrophil % 85.3 % (47-70); Platelet Count 181 K/mm3 (150-450); RBC Distribution Width CV 16.4 % (11.6-14.6); RBC Distribution Width SD 64.9 fl (35.1-43.9); Red Blood Count 2.58 M/mm3 (4.6-6.2); White Blood Count 15.1 K/mm3 (4.4-11.0)
[2021-05-07 08:23] LABS: Anion Gap 8 (5-15); BUN 29 mg/dL (7-18); BUN/Creat Ratio 15.1 RATIO (10-20); Calcium,Total 7.9 mg/dL (8.5-10.1); Chloride 108 mmol/L (98-107); Creatinine, Serum 1.92 mg/dL (0.70-1.30); EST Glomerular Filtration Rate 36 mL/min (>60); Est Glom Filt Rate - Afr Amer 44 mL/min (>60); Estimated Creatinine Clearance 30.18 ml/min; Glucose 204 mg/dL (74-106); Potassium 5.8 mmol/L (3.5-5.1); Sodium Level 137 mmol/L (136-145)
[2021-05-07] MEDS: DULoxetine Hcl 60 MG Capsule PO ×2 (08:37→21:17)
[2021-05-07] MEDS: Acetaminophen 325 MG Tablet PO (08:37)
[2021-05-07] MEDS: Gabapentin 800 MG Tablet PO ×3 (08:37→16:02)
[2021-05-07] MEDS: 0.9% Saline Lock 10 ML Syringe IV ×3 (08:38→13:53)
[2021-05-07] MEDS: Morphine 2 MG/ML Syringe IV (08:38)
[2021-05-07] MEDS: Topiramate 50 MG Tablet PO ×2 (08:38→21:17)
[2021-05-07] MEDS: 0.9% Normal Saline 1,000 ML 125 ML IV ×2 (09:29→17:45)
[2021-05-07] MEDS: Ciprofloxacin 400 MG/200 ML BAG 200 MG IV (09:30)
--- NOTE | 2021-05-07 09:32 | NURSING ---
pt states just sitting here, my pain is about a 4/10 but when I touch it, it really hurts pt points to lower abd area. abd remains soft. discomfort on incisional line dressing area.
--- NOTE | 2021-05-07 10:00 | CASEMGMT ---
RN CM Face to Face with patient for initial transition planning/care coordination assessment. RN CM introduced self and role at [facility]. Patient lying in bed, alert and oriented. Patient willing to participate in assessment and is able to answer all questions appropriately. Care providers, pharmacy, and demographics verified. Patient wishes to discharge home will need HHC for need urostomy teaching. Patient was provided a list of HHC providers including quality and resource use data and consistent with the patient?s preferred geographic region, medical needs, and insurance network. Patient to review list and provide preferences. Patient states he has no further needs or concerns at this time. CM to follow for discharge planning needs that may arise. PCP: Julio César Specialists: Kit urologist Preferred Pharmacy: [facility] Insurance: [facility] Prescription Benefit: yes Living Will/HPOA: yes, Kristy ORTIZ: Living Arrangements: Patient lives with in a mobile home with ramp to enter the home. Patient states he is independent at home. Transportation: self/ DME/HHC: Patient states he has shower chair, raised toilet, cane, walker, cpap, and nebulizer at home. CM to assist with HHC setup. Disposition Plan: Patient to discharge home with HHC, family support, and follow-up plans in place. Halima GAMINO, RN, CM
[2021-05-07] MEDS: HYDROmorphone 0.5 MG/0.5 ML SYRINGE IV ×2 (11:12→13:53)
[2021-05-07] MEDS: Ondansetron 4 MG/2 ML Vial IV (11:12)
[2021-05-07 11:35] LABS: Bedside Glucose 225 mg/dL (70-110)
[2021-05-07 17:51] LABS: Bedside Glucose 179 mg/dL (70-110)
[2021-05-08] VITALS (12 sets, daily range): BP systolic 113–131; BP diastolic 48–60; PULSE 78–94; RESP 18–20; TEMP 36.4–37.1; O2SAT 90–98
[2021-05-08 00:36] LABS: Bedside Glucose 169 mg/dL (70-110)
[2021-05-08] MEDS: 0.9% Normal Saline 1,000 ML 125 ML IV (02:21)
[2021-05-08 05:50] LABS: Hematocrit 23.6 % (40-54); Hemoglobin 7.3 g/dL (13.0-16.5); Mean Corp Hgb Conc 30.9 g/dL (32-36); Mean Corpuscular Hgb 33.3 pg (27.0-32.0); Mean Corpuscular Volume 107.8 fL (80-94); Mean Platelet Vol. 9.6 fl (6.2-12.0); Platelet Count 156 K/mm3 (150-450); RBC Distribution Width CV 16.1 % (11.6-14.6); RBC Distribution Width SD 63.8 fl (35.1-43.9); Red Blood Count 2.19 M/mm3 (4.6-6.2)
[2021-05-08] MEDS: CARBIDOPA/LEVODOPA CR 50/200 Tablet PO ×4 (06:06→21:05)
[2021-05-08] MEDS: Primidone 250 MG Tablet PO ×3 (06:06→21:04)
[2021-05-08 06:07] LABS: Anion Gap 5 (5-15); BUN 31 mg/dL (7-18); BUN/Creat Ratio 21.7 RATIO (10-20); Calcium,Total 7.7 mg/dL (8.5-10.1); Chloride 109 mmol/L (98-107); Creatinine, Serum 1.43 mg/dL (0.70-1.30); EST Glomerular Filtration Rate 51 mL/min (>60); Est Glom Filt Rate - Afr Amer 61 mL/min (>60); Estimated Creatinine Clearance 40.52 ml/min; Glucose 173 mg/dL (74-106); Potassium 4.5 mmol/L (3.5-5.1); Sodium Level 138 mmol/L (136-145)
[2021-05-08 06:26] LABS: Bedside Glucose 168 mg/dL (70-110)
[2021-05-08] MEDS: Acetaminophen 325 MG Tablet PO (06:26)
[2021-05-08] MEDS: Ipratropium/Albuterol Sulfate 3 ML AMPUL.NEB INHALATION ×3 (07:26→19:23)
--- NOTE | 2021-05-08 07:43 | PCM.PN.SRG ---
Subjective Subjective Patient appears to be doing well. He reports no flatus yet. He is tolerating ice chips. No nausea or vomiting. Abdominal pain is controlled. Objective Data Objective Data Vital Signs: Vital Signs Temp Pulse Resp BP Pulse Ox 98.8 F 86 18 113/50 L 92 05/08/21 02:35 05/08/21 07:24 05/08/21 07:24 05/08/21 02:35 05/08/21 02:35 Oxygen Delivery Method Room Air Weight: 230 lb 2.601 oz Body Mass Index (BMI) 34.9 Intake & Output: Intake and Output for Last 24 Hours 05/06/21 05/07/21 05/08/21 23:59 23:59 23:59 Intake Total 5752.08 / 5812.08 2578.33 / 2578.33 1030 / 1030 Output Total 180 / 330 1095 / 1095 950 / 950 Balance 5572.08 / 5482.08 1483.33 / 1483.33 80 / 80 Lab / Micro Data Result Diagrams: 05/08/21 05:19 05/08/21 05:19 Labs: Laboratory Results - last 24 hr 05/07/21 05/07/21 05/07/21 07:55 07:55 11:22 WBC 15.1 H RBC 2.58 L Hgb 8.9 L Hct 27.8 L MCV 107.8 H MCH 34.5 H MCHC 32.0 RDW Std Deviation 64.9 H RDW Coeff of Yara 16.4 H Plt Count 181 MPV 9.2 Immature Gran % (Auto) 0.700 Neut % (Auto) 85.3 H Lymph % (Auto) 6.4 L Winn % (Auto) 7.4 Eos % (Auto) 0.0 Baso % (Auto) 0.2 Absolute Neuts (auto) 12.8 H Absolute Lymphs (auto) 0.97 Nucleated RBC % 0 Sodium 137 Potassium 5.8 H Chloride 108 H Carbon Dioxide 21.0 Anion Gap 8 BUN 29 H Creatinine 1.92 H Estim Creat Clear Calc 30.18 Est GFR (MDRD) Af Amer 44 L Est GFR (MDRD) Non-Af 36 L BUN/Creatinine Ratio 15.1 Glucose 204 H Calcium 7.9 L POC Glucose 225 H 05/07/21 05/07/21 05/08/21 17:40 21:22 05:19 WBC 11.0 RBC 2.19 L Hgb 7.3 L Hct 23.6 L MCV 107.8 H MCH 33.3 H MCHC 30.9 L RDW Std Deviation 63.8 H RDW Coeff of Yara 16.1 H Plt Count 156 MPV 9.6 Immature Gran % (Auto) Neut % (Auto) Lymph % (Auto) Winn % (Auto) Eos % (Auto) Baso % (Auto) Absolute Neuts (auto) Absolute Lymphs (auto) Nucleated RBC % Sodium Potassium Chloride Carbon Dioxide Anion Gap BUN Creatinine Estim Creat Clear Calc Est GFR (MDRD) Af Amer Est GFR (MDRD) Non-Af BUN/Creatinine Ratio Glucose Calcium POC Glucose 179 H 169 H 05/08/21 05/08/21 05:19 06:17 WBC RBC Hgb Hct MCV MCH MCHC RDW Std Deviation RDW Coeff of Yara Plt Count MPV Immature Gran % (Auto) Neut % (Auto) Lymph % (Auto) Winn % (Auto) Eos % (Auto) Baso % (Auto) Absolute Neuts (auto) Absolute Lymphs (auto) Nucleated RBC % Sodium 138 Potassium 4.5 Chloride 109 H Carbon Dioxide 24.0 Anion Gap 5 BUN 31 H Creatinine 1.43 H Estim Creat Clear Calc 40.52 Est GFR (MDRD) Af Amer 61 Est GFR (MDRD) Non-Af 51 L BUN/Creatinine Ratio 21.7 H Glucose 173 H Calcium 7.7 L POC Glucose 168 H Physical Exam Const oriented x3 and no apparent distress Resp normal respiratory effort Cardio regular rate and regular rhythm GI soft to palpation GI Narrative: Abdomen is soft and nondistended. Mild tenderness to palpation. Stoma is pink with blood-tinged urine in the bag. 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 Encourage ambulation and incentive spirometer. The patient's hemoglobin did decrease by 1 g since yesterday. The patient is still not passing any flatus. Once patient begins to pass flatus he may start clear liquid diet and advance as tolerated. Stoma is pink and appears viable with urine in the bag. Mendoza Lentz MD Pager: [facility] [address] [place] [address], [facility] [address] [place] [address] Office:
--- NOTE | 2021-05-08 08:23 | PCM.PN.GU ---
Subjective Subjective Postoperative day #2 status post radical cystoprostatectomy with an ileal conduit. Today the abdomen slightly more distended but still is very soft nontender no peritoneal signs. Incisions are all clean and intact BRIGID output clearing. He did 1 walk yesterday. Objective Data Objective Data Vital Signs: Vital Signs Temp Pulse Resp BP Pulse Ox 98.8 F 86 18 113/50 L 92 05/08/21 02:35 05/08/21 07:24 05/08/21 07:24 05/08/21 02:35 05/08/21 02:35 Oxygen Delivery Method Room Air Weight: 104.4 kg Body Mass Index (BMI) 34.9 Intake & Output: Intake and Output for Last 24 Hours 05/06/21 05/07/21 05/08/21 23:59 23:59 23:59 Intake Total 5752.08 / 5812.08 2578.33 / 2578.33 1030 / 1030 Output Total 180 / 330 1095 / 1095 950 / 950 Balance 5572.08 / 5482.08 1483.33 / 1483.33 80 / 80 Lab / Micro Data Result Diagrams: 05/08/21 05:19 05/08/21 05:19 Labs: Laboratory Results - last 24 hr 05/07/21 05/07/21 05/07/21 07:55 11:22 17:40 WBC RBC Hgb Hct MCV MCH MCHC RDW Std Deviation RDW Coeff of Yara Plt Count MPV Sodium 137 Potassium 5.8 H Chloride 108 H Carbon Dioxide 21.0 Anion Gap 8 BUN 29 H Creatinine 1.92 H Estim Creat Clear Calc 30.18 Est GFR (MDRD) Af Amer 44 L Est GFR (MDRD) Non-Af 36 L BUN/Creatinine Ratio 15.1 Glucose 204 H Calcium 7.9 L POC Glucose 225 H 179 H 05/07/21 05/08/21 05/08/21 21:22 05:19 05:19 WBC 11.0 RBC 2.19 L Hgb 7.3 L Hct 23.6 L MCV 107.8 H MCH 33.3 H MCHC 30.9 L RDW Std Deviation 63.8 H RDW Coeff of Yara 16.1 H Plt Count 156 MPV 9.6 Sodium 138 Potassium 4.5 Chloride 109 H Carbon Dioxide 24.0 Anion Gap 5 BUN 31 H Creatinine 1.43 H Estim Creat Clear Calc 40.52 Est GFR (MDRD) Af Amer 61 Est GFR (MDRD) Non-Af 51 L BUN/Creatinine Ratio 21.7 H Glucose 173 H Calcium 7.7 L POC Glucose 169 H 05/08/21 06:17 WBC RBC Hgb Hct MCV MCH MCHC RDW Std Deviation RDW Coeff of Yara Plt Count MPV Sodium Potassium Chloride Carbon Dioxide Anion Gap BUN Creatinine Estim Creat Clear Calc Est GFR (MDRD) Af Amer Est GFR (MDRD) Non-Af BUN/Creatinine Ratio Glucose Calcium POC Glucose 168 H Physical Exam Const alert and oriented x3 General Appearance: cooperative HEENT normocephalic, head/scalp atraumatic, EAC's normal and TM's normal bilaterally Eyes PERRL and EOMs intact bilaterally Pupil: sluggish Neck no lymphadenopathy, supple and no JVD General: trachea midline Lymph Lymphatic: no lymphadenopathy noted, lymphedema and lymphadenopathy Resp normal respiratory effort, normal air movement and clear to auscultation bilaterally Cardio regular rate, regular rhythm and peripheral pulses 2+ throughout GI soft to palpation, non-tender and non-distended Extremity normal capillary refill and no clubbing, cyanosis or edema General Extremity: no tenderness to palpation of joints or extremities Skin no rashes or lesions noted General Skin Exam: turgor normal Lesions: no lesions Rashes: no rashes Neuro CN's II-XII intact bilaterally Speech: speech normal Motor Exam: strength 5/5 throughout; Negative for general weakness Psych thought process normal, cooperative and affect normal Appearance: appropriate Assessment & Plan Assessment/Plan (1) Bladder cancer: QUALIFIERS: Bladder location: posterior wall Qualified Code(s): 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 Continue n.p.o. told the patient inmate needs to make 3 walks or all the way around the loop today. Await for him to pass flatus hopefully advance diet by then. He will hemoglobin is down some but this is dilutional fluid shifts no signs of bleeding no plan to give a blood transfusion. Hemodynamically stable.
[2021-05-08] MEDS: Topiramate 50 MG Tablet PO ×2 (09:03→21:03)
[2021-05-08] MEDS: DULoxetine Hcl 60 MG Capsule PO ×2 (09:03→21:04)
[2021-05-08] MEDS: Gabapentin 800 MG Tablet PO ×3 (09:03→17:24)
[2021-05-08] MEDS: HYDROmorphone 0.5 MG/0.5 ML SYRINGE IV (11:29)
[2021-05-08] MEDS: 0.9% Normal Saline 1,000 ML 100 ML IV ×2 (11:33→22:53)
[2021-05-08 13:06] LABS: Bedside Glucose 158 mg/dL (70-110)
[2021-05-08 17:26] LABS: Bedside Glucose 172 mg/dL (70-110)
--- NOTE | 2021-05-08 18:43 | NURSING ---
1835 pt up to walk in hallway, 2nd walk of day, tolerated well. back to room and sitting in chair. Roger Ireland RN
[2021-05-08 22:45] LABS: Bedside Glucose 160 mg/dL (70-110)
[2021-05-09] VITALS (8 sets, daily range): BP systolic 122–141; BP diastolic 49–90; PULSE 61–85; RESP 16–20; TEMP 36.6–37.6; O2SAT 92–99
[2021-05-09 05:29] LABS: Hematocrit 23.7 % (40-54); Hemoglobin 7.5 g/dL (13.0-16.5); Mean Corp Hgb Conc 31.6 g/dL (32-36); Mean Corpuscular Hgb 34.2 pg (27.0-32.0); Mean Corpuscular Volume 108.2 fL (80-94); Mean Platelet Vol. 9.5 fl (6.2-12.0); Platelet Count 154 K/mm3 (150-450); RBC Distribution Width CV 15.6 % (11.6-14.6); RBC Distribution Width SD 62.8 fl (35.1-43.9); Red Blood Count 2.19 M/mm3 (4.6-6.2); White Blood Count 12.9 K/mm3 (4.4-11.0)
[2021-05-09 05:50] LABS: Anion Gap 8 (5-15); BUN 27 mg/dL (7-18); Calcium,Total 7.9 mg/dL (8.5-10.1); Chloride 110 mmol/L (98-107); Creatinine, Serum 1.23 mg/dL (0.70-1.30); EST Glomerular Filtration Rate 60 mL/min (>60); Est Glom Filt Rate - Afr Amer 73 mL/min (>60); Estimated Creatinine Clearance 47.11 ml/min; Glucose 171 mg/dL (74-106); Potassium 4.3 mmol/L (3.5-5.1); Sodium Level 139 mmol/L (136-145)
[2021-05-09] MEDS: CARBIDOPA/LEVODOPA CR 50/200 Tablet PO ×4 (06:10→21:13)
[2021-05-09] MEDS: Primidone 250 MG Tablet PO ×3 (06:10→21:13)
[2021-05-09 06:30] LABS: Bedside Glucose 158 mg/dL (70-110)
--- NOTE | 2021-05-09 06:44 | RAD_ITS ---
STUDY: X-RAY CHEST REASON FOR EXAM: Male, 81 years old. Cough -- ap and lateral chest x ray TECHNIQUE: AP and lateral views of the chest. COMPARISON: Comparison is made with prior study dated 01/24/2021. FINDINGS: A right-sided portacatheter is seen with the tip at the junction of the superior vena cava and right atrium. Patchy infiltrate in the right lower lobe. Blunting of the right costophrenic angle. Sternal cerclage wires and vascular clips are present from a prior sternotomy and coronary artery bypass graft procedure (CABG). Normal mediastinum and davide. Normal visualized pulmonary arteries. There is atherosclerotic calcification of the aortic arch with tortuosity. There are diffuse degenerative changes of the visualized thoracic spine. Normal visualized ribs, clavicles, and shoulders. There is no demonstrated abnormality of the visualized soft tissue structures of the upper abdomen. RAD/Chest PA and Lateral IMPRESSION: Right lower lobe infiltrate with blunting of the right costophrenic angle. Electronically Signed: Og Oshea MD at 8:21 EDT , Service support ,
--- NOTE | 2021-05-09 07:12 | PN.SURG_ITS ---
Subjective Subjective Patient reports he is passing any flatus yet. He says he has been coughing and he is has been having a productive cough overnight. Objective Data Objective Data Vital Signs: Vital Signs Temp Pulse Resp BP Pulse Ox 99.7 F H 78 18 122/90 H 95 05/09/21 04:28 05/09/21 04:28 05/09/21 04:30 05/09/21 04:28 05/09/21 04:30 Oxygen Flow Rate (L/min) 3 Oxygen Delivery Method Bi-pap Weight: 230 lb 2.601 oz Body Mass Index (BMI) 34.9 Intake & Output: Intake and Output for Last 24 Hours 05/07/21 05/08/21 05/09/21 23:59 23:59 23:59 Intake Total 2578.33 / 2578.33 3030 / 3050 40 / 40 Output Total 1095 / 1095 2180 / 2800 1010 / 1010 Balance 1483.33 / 1483.33 850 / 250 -970 / -970 Lab / Micro Data Result Diagrams: 05/09/21 05:20 05/09/21 05:20 Labs: Laboratory Results - last 24 hr 05/08/21 05/08/21 05/08/21 12:59 17:18 22:35 WBC RBC Hgb Hct MCV MCH MCHC RDW Std Deviation RDW Coeff of Yara Plt Count MPV Sodium Potassium Chloride Carbon Dioxide Anion Gap BUN Creatinine Estim Creat Clear Calc Est GFR (MDRD) Af Amer Est GFR (MDRD) Non-Af BUN/Creatinine Ratio Glucose Calcium POC Glucose 158 H 172 H 160 H 05/09/21 05/09/21 05/09/21 05:20 05:20 06:26 WBC 12.9 H RBC 2.19 L Hgb 7.5 L Hct 23.7 L MCV 108.2 H MCH 34.2 H MCHC 31.6 L RDW Std Deviation 62.8 H RDW Coeff of Yara 15.6 H Plt Count 154 MPV 9.5 Sodium 139 Potassium 4.3 Chloride 110 H Carbon Dioxide 21.0 Anion Gap 8 BUN 27 H Creatinine 1.23 Estim Creat Clear Calc 47.11 Est GFR (MDRD) Af Amer 73 Est GFR (MDRD) Non-Af 60 BUN/Creatinine Ratio 22.0 H Glucose 171 H Calcium 7.9 L POC Glucose 158 H Physical Exam Const oriented x3 and no apparent distress Resp normal respiratory effort GI soft to palpation Inspection: abdominal distention Assessment & Plan Assessment/Plan (1) Bladder cancer: QUALIFIERS: Bladder location: posterior wall Qualified Code(s): 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 He also reports he has been coughing up sputum. The patient is not passing any flatus and his abdomen seems more distended today. It is still nontender. His hemoglobin is stable but his white count is slightly increased. I am ordering a chest x-ray and sputum culture. Continue n.p.o. with ice chips until passing flatus. Stoma is pink and viable with urine in the ileostomy bag. Mendoza Lentz MD Pager: [facility] [address] [place] [address], [address] [place] [phone] Office:
--- NOTE | 2021-05-09 07:31 | PCM.PN.GU ---
Subjective Subjective still no flatus, slightly more distended, going to xray today Objective Data Objective Data Vital Signs: Vital Signs Temp Pulse Resp BP Pulse Ox 99.7 F H 78 18 122/90 H 95 05/09/21 04:28 05/09/21 04:28 05/09/21 04:30 05/09/21 04:28 05/09/21 04:30 Oxygen Flow Rate (L/min) 3 Oxygen Delivery Method Bi-pap Weight: 104.4 kg Body Mass Index (BMI) 34.9 Intake & Output: Intake and Output for Last 24 Hours 05/07/21 05/08/21 05/09/21 23:59 23:59 23:59 Intake Total 2578.33 / 2578.33 3030 / 3050 40 / 40 Output Total 1095 / 1095 2180 / 2800 1010 / 1010 Balance 1483.33 / 1483.33 850 / 250 -970 / -970 Lab / Micro Data Result Diagrams: 05/09/21 05:20 05/09/21 05:20 Labs: Laboratory Results - last 24 hr 05/08/21 05/08/21 05/08/21 12:59 17:18 22:35 WBC RBC Hgb Hct MCV MCH MCHC RDW Std Deviation RDW Coeff of Yara Plt Count MPV Sodium Potassium Chloride Carbon Dioxide Anion Gap BUN Creatinine Estim Creat Clear Calc Est GFR (MDRD) Af Amer Est GFR (MDRD) Non-Af BUN/Creatinine Ratio Glucose Calcium POC Glucose 158 H 172 H 160 H 05/09/21 05/09/21 05/09/21 05:20 05:20 06:26 WBC 12.9 H RBC 2.19 L Hgb 7.5 L Hct 23.7 L MCV 108.2 H MCH 34.2 H MCHC 31.6 L RDW Std Deviation 62.8 H RDW Coeff of Yara 15.6 H Plt Count 154 MPV 9.5 Sodium 139 Potassium 4.3 Chloride 110 H Carbon Dioxide 21.0 Anion Gap 8 BUN 27 H Creatinine 1.23 Estim Creat Clear Calc 47.11 Est GFR (MDRD) Af Amer 73 Est GFR (MDRD) Non-Af 60 BUN/Creatinine Ratio 22.0 H Glucose 171 H Calcium 7.9 L POC Glucose 158 H Physical Exam Const alert and oriented x3 General Appearance: cooperative HEENT normocephalic, head/scalp atraumatic, EAC's normal and TM's normal bilaterally Eyes PERRL and EOMs intact bilaterally Pupil: sluggish Neck no lymphadenopathy, supple and no JVD General: trachea midline Lymph Lymphatic: no lymphadenopathy noted, lymphedema and lymphadenopathy Resp normal respiratory effort, normal air movement and clear to auscultation bilaterally Cardio regular rate, regular rhythm and peripheral pulses 2+ throughout GI soft to palpation, non-tender and non-distended Extremity normal capillary refill and no clubbing, cyanosis or edema General Extremity: no tenderness to palpation of joints or extremities Skin no rashes or lesions noted General Skin Exam: turgor normal Lesions: no lesions Rashes: no rashes Neuro CN's II-XII intact bilaterally Speech: speech normal Motor Exam: strength 5/5 throughout; Negative for general weakness Psych thought process normal, cooperative and affect normal Appearance: appropriate Assessment & Plan Assessment/Plan (1) Bladder cancer: QUALIFIERS: Bladder location: posterior wall Qualified Code(s): 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 xray this am. ambulate ducolax suppository.
[2021-05-09] MEDS: Bisacodyl 10 MG Suppository RC (09:38)
[2021-05-09] MEDS: 0.9% Normal Saline 1,000 ML 75 ML IV ×2 (09:38→23:58)
[2021-05-09] MEDS: DULoxetine Hcl 60 MG Capsule PO ×2 (09:39→21:13)
[2021-05-09] MEDS: Gabapentin 800 MG Tablet PO ×3 (09:39→17:46)
[2021-05-09] MEDS: Topiramate 50 MG Tablet PO ×2 (09:39→21:13)
[2021-05-09] MEDS: Docusate Sodium 100 MG Capsule 200 MG PO ×2 (09:41→21:13)
--- NOTE | 2021-05-09 09:45 | NURSING ---
wound photo: abdomen
--- NOTE | 2021-05-09 09:45 | NURSING ---
BRIGID drain site: abdomen
[2021-05-09] MEDS: levoFLOXacin IV 500 MG/100 ML BAG 100 MG IV (09:52)
[2021-05-09 11:25] LABS: Bedside Glucose 184 mg/dL (70-110)
--- NOTE | 2021-05-09 15:05 | CASEMGMT ---
RN CM in to discuss HHC preferences with patient and . Patient's preferences are 1. [facility], 2. [facility], 3. [facility]. RN CM will assist with HHC setup when patient is closer to discharging.
[2021-05-09 16:11] LABS: Bedside Glucose 206 mg/dL (70-110)
[2021-05-09] MEDS: Ipratropium/Albuterol Sulfate 3 ML AMPUL.NEB INHALATION (19:55)
[2021-05-09 21:21] LABS: Bedside Glucose 169 mg/dL (70-110)
[2021-05-10] VITALS (9 sets, daily range): BP systolic 107–122; BP diastolic 45–57; PULSE 65–84; RESP 16–24; TEMP 36.6–37.3; O2SAT 94–100
[2021-05-10] MEDS: Ipratropium/Albuterol Sulfate 3 ML AMPUL.NEB INHALATION ×4 (01:38→20:09)
[2021-05-10] MEDS: CARBIDOPA/LEVODOPA CR 50/200 Tablet PO ×4 (06:23→21:39)
[2021-05-10] MEDS: Primidone 250 MG Tablet PO ×3 (06:23→21:39)
[2021-05-10 06:50] LABS: Bedside Glucose 158 mg/dL (70-110)
[2021-05-10 07:00] LABS: Hematocrit 21.3 % (40-54); Hemoglobin 6.8 g/dL (13.0-16.5); Mean Corp Hgb Conc 31.9 g/dL (32-36); Mean Corpuscular Volume 106.5 fL (80-94); Mean Platelet Vol. 9.5 fl (6.2-12.0); Platelet Count 170 K/mm3 (150-450); RBC Distribution Width CV 14.8 % (11.6-14.6); RBC Distribution Width SD 57.9 fl (35.1-43.9); White Blood Count 8.5 K/mm3 (4.4-11.0)
[2021-05-10 07:19] LABS: Anion Gap 8 (5-15); BUN 24 mg/dL (7-18); BUN/Creat Ratio 24.7 RATIO (10-20); Calcium,Total 7.7 mg/dL (8.5-10.1); Chloride 108 mmol/L (98-107); Creatinine, Serum 0.97 mg/dL (0.70-1.30); EST Glomerular Filtration Rate 79 mL/min (>60); Est Glom Filt Rate - Afr Amer 96 mL/min (>60); Estimated Creatinine Clearance 59.74 ml/min; Glucose 169 mg/dL (74-106); Sodium Level 137 mmol/L (136-145)
--- NOTE | 2021-05-10 07:32 | PN.URO_ITS ---
Subjective Subjective doing well, + flatus, no BM abd soft benign. Objective Data Objective Data Vital Signs: Vital Signs Temp Pulse Resp BP Pulse Ox 98.3 F 70 16 121/57 H 94 05/10/21 02:19 05/10/21 07:21 05/10/21 07:21 05/10/21 02:19 05/10/21 07:21 Oxygen Flow Rate (L/min) 2 Oxygen Delivery Method Room Air Weight: 104.4 kg Body Mass Index (BMI) 34.9 Intake & Output: Intake and Output for Last 24 Hours 05/08/21 05/09/21 05/10/21 23:59 23:59 23:59 Intake Total 3030 / 3050 2555.0 / 2555.0 Output Total 2180 / 2800 2435 / 2955 1380 / 1380 Balance 850 / 250 120.0 / -400.0 -1380 / -1380 Lab / Micro Data Result Diagrams: 05/10/21 06:45 05/10/21 06:45 Labs: Laboratory Results - last 24 hr 05/09/21 05/09/21 05/09/21 11:14 16:01 21:07 WBC RBC Hgb Hct MCV MCH MCHC RDW Std Deviation RDW Coeff of Yara Plt Count MPV Sodium Potassium Chloride Carbon Dioxide Anion Gap BUN Creatinine Estim Creat Clear Calc Est GFR (MDRD) Af Amer Est GFR (MDRD) Non-Af BUN/Creatinine Ratio Glucose Calcium POC Glucose 184 H 206 H 169 H 05/10/21 05/10/21 05/10/21 06:25 06:45 06:45 WBC 8.5 RBC 2.00 L Hgb 6.8 L Hct 21.3 L MCV 106.5 H MCH 34.0 H MCHC 31.9 L RDW Std Deviation 57.9 H RDW Coeff of Yara 14.8 H Plt Count 170 MPV 9.5 Sodium 137 Potassium 4.0 Chloride 108 H Carbon Dioxide 21.0 Anion Gap 8 BUN 24 H Creatinine 0.97 Estim Creat Clear Calc 59.74 Est GFR (MDRD) Af Amer 96 Est GFR (MDRD) Non-Af 79 BUN/Creatinine Ratio 24.7 H Glucose 169 H Calcium 7.7 L POC Glucose 158 H Micro: Microbiology 05/09/21 09:40 Sputum, Expectorated/Coughed Gram Stain - Final Radiography Diagnostic Testing: Radiology Impression Chest X-Ray 05/09/21 06:44 IMPRESSION: Right lower lobe infiltrate with blunting of the right costophrenic angle. Electronically Signed: Og Oshea MD at 8:21 EDT , Service support , Physical Exam Const alert and oriented x3 General Appearance: cooperative HEENT normocephalic, head/scalp atraumatic, EAC's normal and TM's normal bilaterally Eyes PERRL and EOMs intact bilaterally Pupil: sluggish Neck no lymphadenopathy, supple and no JVD General: trachea midline Lymph Lymphatic: no lymphadenopathy noted, lymphedema and lymphadenopathy Resp normal respiratory effort, normal air movement and clear to auscultation bi laterally Cardio regular rate, regular rhythm and peripheral pulses 2+ throughout GI soft to palpation, non-tender and non-distended Extremity normal capillary refill and no clubbing, cyanosis or edema General Extremity: no tenderness to palpation of joints or extremities Skin no rashes or lesions noted General Skin Exam: turgor normal Lesions: no lesions Rashes: no rashes Neuro CN's II-XII intact bilaterally Speech: speech normal Motor Exam: strength 5/5 throughout; Negative for general weakness Psych thought process normal, cooperative and affect normal Appearance: appropriate Assessment & Plan Assessment/Plan (1) Bladder cancer: QUALIFIERS: Bladder location: posterior wall Qualified Code(s): 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
--- NOTE | 2021-05-10 07:54 | PN.SURG_ITS ---
Subjective Subjective Patient tolerated clear liquids and he reports having another bowel movement overnight and he is passing copious gas with no nausea or vomiting. Abdominal pain is minimal Objective Data Objective Data Vital Signs: Vital Signs Temp Pulse Resp BP Pulse Ox 98.3 F 70 16 121/57 H 94 05/10/21 02:19 05/10/21 07:21 05/10/21 07:21 05/10/21 02:19 05/10/21 07:21 Oxygen Flow Rate (L/min) 2 Oxygen Delivery Method Room Air Weight: 230 lb 2.601 oz Body Mass Index (BMI) 34.9 Intake & Output: Intake and Output for Last 24 Hours 05/08/21 05/09/21 05/10/21 23:59 23:59 23:59 Intake Total 3030 / 3050 2555.0 / 2555.0 Output Total 2180 / 2800 2435 / 2955 1380 / 1380 Balance 850 / 250 120.0 / -400.0 -1380 / -1380 Lab / Micro Data Result Diagrams: 05/10/21 06:45 05/10/21 06:45 Labs: Laboratory Results - last 24 hr 05/09/21 05/09/21 05/09/21 11:14 16:01 21:07 WBC RBC Hgb Hct MCV MCH MCHC RDW Std Deviation RDW Coeff of Yara Plt Count MPV Sodium Potassium Chloride Carbon Dioxide Anion Gap BUN Creatinine Estim Creat Clear Calc Est GFR (MDRD) Af Amer Est GFR (MDRD) Non-Af BUN/Creatinine Ratio Glucose Calcium POC Glucose 184 H 206 H 169 H 05/10/21 05/10/21 05/10/21 06:25 06:45 06:45 WBC 8.5 RBC 2.00 L Hgb 6.8 L Hct 21.3 L MCV 106.5 H MCH 34.0 H MCHC 31.9 L RDW Std Deviation 57.9 H RDW Coeff of Yara 14.8 H Plt Count 170 MPV 9.5 Sodium 137 Potassium 4.0 Chloride 108 H Carbon Dioxide 21.0 Anion Gap 8 BUN 24 H Creatinine 0.97 Estim Creat Clear Calc 59.74 Est GFR (MDRD) Af Amer 96 Est GFR (MDRD) Non-Af 79 BUN/Creatinine Ratio 24.7 H Glucose 169 H Calcium 7.7 L POC Glucose 158 H Micro: Microbiology 05/09/21 09:40 Sputum, Expectorated/Coughed Gram Stain - Final Radiography Diagnostic Testing: Radiology Impression Chest X-Ray 05/09/21 06:44 IMPRESSION: Right lower lobe infiltrate with blunting of the right costophrenic angle. 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 I have advanced him to a regular diet as he did tolerate clears and he is passing gas and having bowel movements. Once he tolerates diet he is okay for discharge from my standpoint. Stoma is pink and stoma teaching will take place today. Patient has right lower lobe pneumonia and this is being treated by urology. Mendoza Lentz MD Pager: [facility] [address] [place] [address], [address] [place] [address] Office:
[2021-05-10] MEDS: DULoxetine Hcl 60 MG Capsule PO ×2 (08:17→21:39)
[2021-05-10] MEDS: Docusate Sodium 100 MG Capsule 200 MG PO ×2 (08:17→21:39)
[2021-05-10] MEDS: Gabapentin 800 MG Tablet PO ×3 (08:17→16:12)
[2021-05-10] MEDS: Topiramate 50 MG Tablet PO ×2 (08:17→21:39)
[2021-05-10] MEDS: levoFLOXacin IV 250 MG/50 ML BAG 50 MG IV (09:42)
[2021-05-10 11:01] LABS: Bedside Glucose 187 mg/dL (70-110)
--- NOTE | 2021-05-10 13:30 | CASEMGMT ---
Addendum entered by Halima Fan 05/10/21 16:05: Received call back from [facility] and they are not in-network with patient's insurance. PAMELA NICOLE sent [facility] and awaiting call back. Original Note: PAMELA NICOLE sent referral to [facility] which is patient's first choice for [facility]. Awaiting call back from [facility] with accceptance. PAMELA NICOLE will continue to follow this patient and plan for a safe discharge.
--- NOTE | 2021-05-10 14:34 | NURSING ---
In to do ostomy teaching with patient and . Pt is POD#4 radical cystoprostatectomy with ileal conduit formation. removed the ostomy appliance. Abdomen is still slightly distended. there was some blistering noted at the edges of the ostomy appliance. this is most likely d/t the abdominal distension and stretching of the appliance. stoma is very well budded and somewhat edematous. stoma is pink. measures approx 1 1/2. peristomal skin is intact. there was an old dry blood clot noted. cleansed the peristomal skin with warm water pat dry. showed how to measure and cut the flange to size. did explain to the that the stoma is edematous and will most likely shrink in size. made sure the peristomal skin was dry and placed the ostomy appliance around the stoma. applied a 1 piece flat Bristol appliance. pt tolerated well. questions answered. did demonstrate how to empty the appliance. also demonstrated how to hook the appliance up to a night drainage bag if pt prefers to do that at bedtime. script for ostomy supplies on the front of the chart. will continue teaching until pt is discharged home. plan of for pt to have home health as well who can continue teaching at home. pt and very appreciative of care.
[2021-05-10 16:21] LABS: Bedside Glucose 234 mg/dL (70-110)
[2021-05-10] MEDS: 0.9% Normal Saline 1,000 ML 30 ML IV (21:37)
[2021-05-10 21:45] LABS: Bedside Glucose 234 mg/dL (70-110)
[2021-05-11] VITALS (8 sets, daily range): BP systolic 118–133; BP diastolic 50–95; PULSE 65–88; RESP 18–20; TEMP 36.6–37.3; O2SAT 93–100
[2021-05-11] MEDS: Primidone 250 MG Tablet PO ×3 (06:15→23:13)
[2021-05-11] MEDS: CARBIDOPA/LEVODOPA CR 50/200 Tablet PO ×4 (06:15→23:13)
[2021-05-11 06:45] LABS: Bedside Glucose 170 mg/dL (70-110)
[2021-05-11] MEDS: Ipratropium/Albuterol Sulfate 3 ML AMPUL.NEB INHALATION ×3 (07:22→21:53)
[2021-05-11] MEDS: Acetaminophen 325 MG Tablet PO (08:17)
[2021-05-11] MEDS: Gabapentin 800 MG Tablet PO ×3 (08:17→17:28)
[2021-05-11] MEDS: DULoxetine Hcl 60 MG Capsule PO ×2 (09:34→23:13)
[2021-05-11] MEDS: Topiramate 50 MG Tablet PO ×2 (09:34→23:13)
[2021-05-11] MEDS: Docusate Sodium 100 MG Capsule 200 MG PO ×2 (09:34→23:13)
[2021-05-11] MEDS: levoFLOXacin IV 500 MG/100 ML BAG 100 MG IV (09:36)
--- NOTE | 2021-05-11 09:42 | CASEMGMT ---
RN CM received call back from [facility] and they are able to accept the patient. RN CM updated patient regarding acceptance. RN CM will updated [facility] when patient is discharged. CM will continue to follow this patient and plan for a safe discharge.
--- NOTE | 2021-05-11 10:20 | PN_ITS ---
Progress Note Patient is doing well, 81-year-old male status post radical cystoprostatectomy and formation of an ileal conduit, he is tolerating regular diet passing gas no bowel movements yet BRIGID output is low urine output is good he has been able to ambulate walk up and down stairs he is off oxygen he has been treated for pneumonia and is improving rapidly. I anticipate he should be able to go home by this coming Sunday we will try get the fabien out and BRIGID drain out before he goes home and the family is wondering about home health care which the [facility] were arranged for him.
[2021-05-11 11:45] LABS: Bedside Glucose 255 mg/dL (70-110)
--- NOTE | 2021-05-11 16:09 | CHAPLAIN ---
Type of Pastoral Visit _x__ Initial Visit ___ Follow-up Visit ___ On-call Visit ___ General Patient Visit ___ Spiritual Assessment ___ Family Conference ___ Bereavement ___ Rapid Response ___ Code Blue ___ Other (describe below) Pastoral Care Referral From ___ Patient _x__ Family ___ Nurse ___ Physician ___ Incident Response Engineer ___ Refresh Technician ___ Other (describe below) Sacrament/Intervention _x__ Active listening ___ Anointing ___ Sabianism ___ Bereavement ___ Communion _x__ Bibi exploration ___ ___ Life review _x__ Prayer ___ Reconciliation ___ Sacrament of Sick _x__ Supportive presence ___ Wedding ___ Other (describe below) Pastoral Comments
[2021-05-11 17:40] LABS: Bedside Glucose 201 mg/dL (70-110)
[2021-05-11 23:26] LABS: Bedside Glucose 223 mg/dL (70-110)
[2021-05-12 02:05] VITALS: BP 125/53; PULSE 79; RESP 18; TEMP 37.2; O2SAT 98
--- NOTE | 2021-05-12 06:13 | PCM.PN.BLA ---
Progress Note Status post radical cystoprostatectomy doing well progressing nicely advance diet as tolerated Tylenol and oxycodone for pain Hep-Lock IV fluids, plan to remove fabien on Sunday and BRIGID drain he by can be discharged Sunday morning.
[2021-05-12] MEDS: Primidone 250 MG Tablet PO ×3 (06:28→22:14)
[2021-05-12] MEDS: CARBIDOPA/LEVODOPA CR 50/200 Tablet PO ×4 (06:28→22:15)
[2021-05-12 06:36] LABS: Bedside Glucose 189 mg/dL (70-110)
--- NOTE | 2021-05-12 07:31 | PCM.PN.SRG ---
Subjective Subjective Patient reports he passing flatus. He has not had a bowel movement 2 days but he is tolerating regular diet with no nausea or vomiting. Objective Data Objective Data Vital Signs: Vital Signs Temp Pulse Resp BP Pulse Ox 98.9 F 79 18 125/53 H 98 05/12/21 02:05 05/12/21 02:05 05/12/21 02:05 05/12/21 02:05 05/12/21 02:05 Oxygen Flow Rate (L/min) 2 Oxygen Delivery Method Nasal Cannula Weight: 230 lb 2.601 oz Body Mass Index (BMI) 34.9 Intake & Output: Intake and Output for Last 24 Hours 05/10/21 05/11/21 05/12/21 23:59 23:59 23:59 Intake Total 1993.0 / 1993.0 2360 / 2360 400 / 400 Output Total 2200 / 2800 3180 / 3180 1785 / 1785 Balance -207.0 / -807.0 -820 / -820 -1385 / -1385 Lab / Micro Data Result Diagrams: 05/10/21 06:45 05/10/21 06:45 Labs: Laboratory Results - last 24 hr 05/11/21 05/11/21 05/11/21 11:35 17:26 23:19 POC Glucose 255 H 201 H 223 H 05/12/21 06:26 POC Glucose 189 H Micro: Microbiology 05/09/21 09:40 Sputum, Expectorated/Coughed Gram Stain - Final 05/09/21 09:40 Sputum, Expectorated/Coughed Respiratory Culture - Final Physical Exam GI GI Narrative: Abdomen is soft and nontender and stoma is pink with urine in the bag. 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 He is still passing flatus but he has not had a bowel movement 2 days I will order him a Dulcolax suppository. He is on Colace twice a day. Continue regular diet and okay for DC when okay with the primary service. Follow-up with me in 2 weeks for incision check and stoma check. Mendoza Lentz MD Pager: [facility] [address] [place] [address], [address] [place] [address] Office:
[2021-05-12 08:00] VITALS: BP 127/55; PULSE 82; RESP 16; TEMP 36.6; O2SAT 97
[2021-05-12] MEDS: Gabapentin 800 MG Tablet PO ×3 (08:18→16:17)
[2021-05-12] MEDS: Bisacodyl 10 MG Suppository RC (08:19)
[2021-05-12] MEDS: Docusate Sodium 100 MG Capsule 200 MG PO ×2 (09:07→22:15)
[2021-05-12] MEDS: levoFLOXacin IV 500 MG/100 ML BAG 100 MG IV (09:07)
[2021-05-12] MEDS: DULoxetine Hcl 60 MG Capsule PO ×2 (09:08→22:14)
[2021-05-12] MEDS: Topiramate 50 MG Tablet PO ×2 (09:08→22:15)
[2021-05-12 11:20] LABS: Bedside Glucose 234 mg/dL (70-110)
[2021-05-12 14:08] VITALS: BP 127/53; PULSE 75; RESP 16; TEMP 36.6; O2SAT 96
[2021-05-12] MEDS: Ipratropium/Albuterol Sulfate 3 ML AMPUL.NEB INHALATION ×2 (14:08→20:52)
[2021-05-12 16:25] LABS: Bedside Glucose 212 mg/dL (70-110)
[2021-05-12 20:43] VITALS: BP 118/53; PULSE 76; RESP 18; TEMP 36.8; O2SAT 94
[2021-05-12 20:53] VITALS: PULSE 78; RESP 18
[2021-05-12 22:25] LABS: Bedside Glucose 260 mg/dL (70-110)
[2021-05-13 03:00] VITALS: BP 127/63; PULSE 73; RESP 16; TEMP 37; O2SAT 93
[2021-05-13] MEDS: CARBIDOPA/LEVODOPA CR 50/200 Tablet PO ×2 (06:21→11:47)
[2021-05-13] MEDS: Primidone 250 MG Tablet PO ×2 (06:21→14:40)
[2021-05-13 07:23] VITALS: O2SAT 95
--- NOTE | 2021-05-13 08:07 | PCM.PN.BLA ---
Progress Note doing well, today plan to d/c BRIGID drain and remove fabien probably can go home tonight.
[2021-05-13 09:34] VITALS: BP 112/54; PULSE 77; RESP 16; TEMP 36.8; O2SAT 94
[2021-05-13] MEDS: Topiramate 50 MG Tablet PO (09:39)
[2021-05-13] MEDS: levoFLOXacin IV 500 MG/100 ML BAG 100 MG IV (09:39)
[2021-05-13] MEDS: 0.9% Saline Lock 10 ML Syringe IV ×2 (09:39→14:50)
[2021-05-13] MEDS: Gabapentin 800 MG Tablet PO ×2 (09:40→11:47)
[2021-05-13] MEDS: Docusate Sodium 100 MG Capsule 200 MG PO (09:40)
[2021-05-13] MEDS: DULoxetine Hcl 60 MG Capsule PO (09:42)
[2021-05-13] MEDS: Ipratropium/Albuterol Sulfate 3 ML AMPUL.NEB INHALATION (10:44)
[2021-05-13 10:58] VITALS: PULSE 81; RESP 18
--- NOTE | 2021-05-13 13:55 | CASEMGMT ---
PAMELA NICOLE updated that patient will discharge home today. PAMELA NICOLE called and updated [facility]. Will fax discharge instructions when available.
--- NOTE | 2021-05-13 14:12 | DCINST_ITS ---
Discharge Instructions Diet Discharge Diet: Soft diet Activity Discharge Activity: May Not Drive and May Shower Weight Bearing Status: Weight bearing as tolerated Dressing / Incision Call your doctor if your incision/area has: Increased Redness, Foul Smelling Discharge and Swelling at the incision site Call your doctor if you observe: Fever of 101 or Higher, Shortness of breath, Chest pain and Uncontrolled pain Suture Line Care: Avoid Pulling/Pushing and Avoid Pinching/Bending Cleanse incision/area with: Soap & Water Additional Dressing/Incision Instructions:: standard stoma care Follow Up Care Please Follow Up With: medina When: call for appt in 2 weeks. Test Results: Test results from this visit will be discussed in further detail at your follow-up appointment, if applicable. Discharge Plan Admission Admit Date/Time: 05/06/21 10:59 Primary Reason for Your Visit: Radical cystectomy and ileal conduit Attending Provider: Markell Pantoja Primary Care Provider: Ruben Angela [employer]PORATE SEC[employer]ITY OFFICER Consulting Providers: Mendoza Lentz Instructions Patient Instructions: Total Cystectomy with Incontinent Urinary Diversion in Men Discharge Orders/Prescriptions Prescriptions: New levofloxacin 500 mg tablet 500 mg PO DAILY Qty: 7 RF: 0 oxycodone-acetaminophen 5-325 mg tablet 1 tab PO Q4H PRN (Reason: pain) 7 Days Qty: 14 RF: 0 Continued gabapentin 800 mg tablet 800 mg PO TID RF: 0 omega-3 fatty acids 1,000 mg capsule 1,000 mg PO QDAY RF: 0 albuterol sulfate 2.5 mg /3 mL (0.083 %) solution for nebulization 2.5 mg INHALATION Q4H PRN (Reason: COPD) RF: 0 duloxetine 60 mg capsule,delayed release(DR/EC) 60 mg PO BID RF: 0 ipratropium-albuterol 0.5 mg-3 mg(2.5 mg base)/3 mL solution for nebulization 3 ml INHALATION Q6H Qty: 180 RF: 11 hydrocodone-acetaminophen 5-325 mg tablet 1 tab PO Q6H PRN (Reason: Pain) RF: 0 carbidopa-levodopa 1 TABLET tablet extended release 1 tablet PO 4X/DAY RF: 0 simvastatin 40 MG tablet 40 mg PO QHS RF: 0 primidone 250 MG tablet 250 mg PO TID RF: 0 topiramate 50 MG tablet 50 mg PO BID RF: 0 fenofibrate 160 MG tablet 160 mg PO DAILY RF: 0 ondansetron 8 MG tablet,disintegrating 8 mg PO Q8H PRN PRN (Reason: Nausea) 10 Days Qty: 30 RF: 3 lidocaine-prilocaine 30 GM cream 1 applicatio TP DAILY PRN PRN (Reason: Not Specified) 30 Days Qty: 1 RF: 2 Held pioglitazone [Actos] 45 MG tablet 45 mg PO DAILY RF: 0 Hold Instructions: Resume on 05/27/21. resume if BS go high glimepiride 4 MG tablet 4 mg PO DAILY RF: 0 Hold Instructions: Resume on 05/27/21. resume if Blood surgars go higher 150. Referrals / Follow Up: Markell Pantoja MD [STAFF PHYSICIAN] - Ruben Angela NP, CORPORATE SECURITY OFFICER-C [Primary Care Provider] -
--- NOTE | 2021-05-13 14:14 | PCM.DC.SUM ---
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 Medications at Discharge Home Medications albuterol sulfate 2.5 mg INHALATION Q4H PRN 03/12/18 duloxetine 60 mg capsule,delayed release 60 mg PO BID cap 03/12/18 gabapentin 800 mg tablet 800 mg PO TID 03/12/18 omega-3 fatty acids 1,000 mg capsule 1,000 mg PO QDAY 03/12/18 carbidopa-levodopa 1 tablet PO 4X/DAY 12/29/20 fenofibrate 160 mg PO DAILY 01/14/21 glimepiride 4 mg PO DAILY 01/14/21 pioglitazone [Actos] 45 mg PO DAILY 01/14/21 primidone 250 mg PO TID 01/14/21 simvastatin 40 mg PO QHS 01/14/21 topiramate 50 mg PO BID 01/14/21 lidocaine-prilocaine 1 applicatio TP DAILY PRN PRN 30 Days #1 tube 01/19/21 ondansetron 8 mg PO Q8H PRN PRN 10 Days #30 tab.rapdis 01/19/21 ipratropium 0.5 mg-albuterol 3 mg (2.5 mg base)/3 mL nebulization soln 3 ml INHALATION Q6H #180 ml 03/08/21 hydrocodone-acetaminophen 5-325mg 5mg-325mg 1 tab PO Q6H PRN 03/23/21 levofloxacin 500 mg PO DAILY #7 tab 05/13/21 oxycodone-acetaminophen 1 tab PO Q4H PRN 7 Days #14 tab 05/13/21 Hospital Course Operations - (Radical cystectomy and ileal conduit formation) Summary of Care Provided Minutes Spent on Discharge: 30 Hospital Course: 81-year-old male who had invasive bladder cancer he underwent resection of the bladder tumor earlier this year, he completed neoadjuvant chemotherapy, he then presented for radical cystoprostatectomy and ileal conduit formation. He underwent surgery with a radical cystoprostatectomy on May 06, 2021. He received 1 unit of packed red blood cells after surgery. General surgery assisted in the formation of the ileal conduit and anastomosis of the intestines. Postoperative course was fairly unremarkable by postoperative day #4 he had resumed his bowel habit and he had started passing flatus and was advanced to regular diet and he was discharged to home on postoperative day #6 in good condition. The stoma was clean and intact the left and right stent were still eminent through the stoma in place. His urine is nice and clear. He had good urine output. His BRIGID drain was removed. His fabien were removed. He was ambulating with a walker in the hallways. Tolerating regular soft diet. On exam his abdomen was nice and soft and benign incisions were clean and intact. Physical Exam Const General Appearance: cooperative and comfortable HEENT normocephalic Head and Scalp: normal to inspection Face and Sinus: normal facial exam Nose: external nose normal General Ear: hearing grossly impaired External Ear: external ears normal Eyes PERRL General Eye: normal appearance of both eyes Neck full ROM Lymph Lymphatic: no lymphadenopathy noted Chest inspection of chest normal Resp normal respiratory effort Cardio regular rate and regular rhythm GI normal to inspection, nondistended, normoactive bowel sounds no CVA tenderness Penis: normal penis Scrotum: testes descended bilaterally Extremity normal to inspection Skin no rashes or lesions noted General Skin Exam: no breakdown Weight / BMI Weight Weight: 104.4 kg Body Mass Index (BMI) 34.9 ABG / Lab / Microbiology Data Result Diagrams: 05/10/21 06:45 05/10/21 06:45 Laboratory: Laboratory Results - last 24 hr 05/12/21 05/12/21 16:14 22:19 POC Glucose 212 H 260 H Microbiology: Microbiology 05/09/21 09:40 Sputum, Expectorated/Coughed Gram Stain - Final 05/09/21 09:40 Sputum, Expectorated/Coughed Respiratory Culture - Final D/C Instructions Discharge Diet: Soft diet Weight Bearing Status: Weight bearing as tolerated Call your doctor if your incision/area has: Increased Redness, Foul Smelling Discharge and Swelling at the incision site Call your doctor if you observe: Fever of 101 or Higher, Shortness of breath, Chest pain and Uncontrolled pain Suture Line Care: Avoid Pulling/Pushing and Avoid Pinching/Bending Cleanse incision/area with: Soap & Water Additional Dressing/Incision Instructions: standard stoma care Please Follow Up With: medina When: call for appt in 2 weeks. Meaningful Use Info Meaningful Use Diagnoses (Choose all that apply): None applicable Discharge Plan Admission Admit Date/Time: 05/06/21 10:59 Primary Reason for Your Visit: Radical cystectomy and ileal conduit Attending Provider: Markell Pantoja Primary Care Provider: Ruben Angela [employer] Consulting Providers: Mendoza Lentz Instructions Patient Instructions: Total Cystectomy with Incontinent Urinary Diversion in Men Discharge Orders/Prescriptions Prescriptions: New levofloxacin 500 mg tablet 500 mg PO DAILY Qty: 7 RF: 0 oxycodone-acetaminophen 5-325 mg tablet 1 tab PO Q4H PRN (Reason: pain) 7 Days Qty: 14 RF: 0 Continued gabapentin 800 mg tablet 800 mg PO TID RF: 0 omega-3 fatty acids 1,000 mg capsule 1,000 mg PO QDAY RF: 0 albuterol sulfate 2.5 mg /3 mL (0.083 %) solution for nebulization 2.5 mg INHALATION Q4H PRN (Reason: COPD) RF: 0 duloxetine 60 mg capsule,delayed release(DR/EC) 60 mg PO BID RF: 0 ipratropium-albuterol 0.5 mg-3 mg(2.5 mg base)/3 mL solution for nebulization 3 ml INHALATION Q6H Qty: 180 RF: 11 hydrocodone-acetaminophen 5-325 mg tablet 1 tab PO Q6H PRN (Reason: Pain) RF: 0 carbidopa-levodopa 1 TABLET tablet extended release 1 tablet PO 4X/DAY RF: 0 simvastatin 40 MG tablet 40 mg PO QHS RF: 0 primidone 250 MG tablet 250 mg PO TID RF: 0 topiramate 50 MG tablet 50 mg PO BID RF: 0 fenofibrate 160 MG tablet 160 mg PO DAILY RF: 0 ondansetron 8 MG tablet,disintegrating 8 mg PO Q8H PRN PRN (Reason: Nausea) 10 Days Qty: 30 RF: 3 lidocaine-prilocaine 30 GM cream 1 applicatio TP DAILY PRN PRN (Reason: Not Specified) 30 Days Qty: 1 RF: 2 Held pioglitazone [Actos] 45 MG tablet 45 mg PO DAILY RF: 0 Hold Instructions: Resume on 05/27/21. resume if BS go high glimepiride 4 MG tablet 4 mg PO DAILY RF: 0 Hold Instructions: Resume on 05/27/21. resume if Blood surgars go higher 150. Referrals / Follow Up: Markell Pantoja MD [STAFF PHYSICIAN] - Ruben Angela NP, [facility] [Primary Care Provider] - Disposition Discharge Orders: Discharge Patient (Routine); Ordered 05/13/21 Ordered By: Dr. Markell Pantoja
[2021-05-13 14:37] VITALS: BP 125/49; PULSE 78; RESP 18; TEMP 37; O2SAT 96
--- NOTE | 2021-05-16 16:07 | CASEMGMT ---
RN CM Discharge Follow Up Phone Call: DENISE: Angie Strata:3 Call Date: 05/16/21 Discharge Date: 05/13/21 Time of Call:1605 Duration:<1 min Admitting Dx: bladder cancer RN CM attempted to complete follow up phone call after recent hospitalization. No answer on phone number listed. Unable to understand the person's name on voicemail per message. No message left.
== END 2021-05-13 15:14 | disposition home health service (06) | DRG 653 ==
LOC: ACINP 13:29 → MS3 05-10 10:04 → ACINP 05-12 08:18
PROVIDERS: Admitting Provider Urology; PCP Nurse Practitioner Family; Visit Provider Urology
PROC: 0VT04ZZ Resection of Prostate, Percutaneous Endoscopic Approach (ICD-10-PCS; CPT 55866; principal; 2021-05-06 12:40)
DX: C67.4 Malignant neoplasm of posterior wall of bladder (principal); J18.9 Pneumonia, unspecified organism; N13.8 Other obstructive and reflux uropathy; C61 Malignant neoplasm of prostate; I25.10 Atherosclerotic heart disease of native coronary artery without angina pectoris; D64.9 Anemia, unspecified; E78.5 Hyperlipidemia, unspecified; I10 Essential (primary) hypertension; F17.200 Nicotine dependence, unspecified, uncomplicated; G20 Parkinson's disease; E11.40 Type 2 diabetes mellitus with diabetic neuropathy, unspecified; N40.1 Benign prostatic hyperplasia with lower urinary tract symptoms; E66.9 Obesity, unspecified; G47.33 Obstructive sleep apnea (adult) (pediatric); I25.2 Old myocardial infarction; Z92.21 Personal history of antineoplastic chemotherapy; Z79.899 Other long term (current) drug therapy; Z95.1 Presence of aortocoronary bypass graft; Z79.84 Long term (current) use of oral hypoglycemic drugs; Z68.34 Body mass index [BMI] 34.0-34.9, adult; K40.90 Unilateral inguinal hernia, without obstruction or gangrene, not specified as recurrent
CPT/HCPCS: 36415; 71046; 80048; 82962; 85025; 85027; 86850; 86900; 86901; 86920; 86922; 87070; 87205; 88304; 88305; 88307; 88309; 88311; 88331; 88341; 88342; 94640; 94762; 97110; 97161; 97166; 97530; 97535; 97802; 97803; 99251; J7030; J7040; J7120; P9016; A4216; C1769; G0463; J0744; J2405; J3490

== ENCOUNTER → 2021-06-17 12:11 | Outpatient (CLI) | payer MEDICARE, SELFPAY ==
[2021-05-26 13:29] VITALS: BMI 34.3
== END ==
PROVIDERS: PCP Nurse Practitioner Family; Referring Provider Nurse Practitioner Acute Care; Visit Provider Nurse Practitioner Acute Care
DX: R69 Illness, unspecified (principal)

== ENCOUNTER → 2021-07-29 12:41 | Outpatient (CLI) | payer MEDICARE, SELFPAY ==
--- NOTE | 2021-07-29 12:44 | RAD_ITS ---
INDICATION: SPINAL STENOSIS EXAMINATION/TECHNIQUE: X-RAY - XR Spine Lumbar Min 4 Views COMPARISON: None. FINDINGS: Straightening of the alignment of the columns of the cervical spine is visualized. Extensive degenerative changes visualized throughout the lumbar vertebral bodies, multilevel degenerative endplate changes visualized with osteophyte formation and bridging osteophytes visualized at multiple levels. Decreased intervertebral disc height visualized at multiple levels most prominent at L3-L4 and L1-L2. Increased density visualized in the posterior column most prominent at L5 and L4. Extensive vascular calcifications visualized. RAD/L/S Spine Min 4 Views IMPRESSION: Extensive degenerative bone changes seen, no acute osseous abnormality is visualized. Electronically Signed: Bakari Quiroga MD at 14:03 EDT Tel , Service support ,
== END ==
PROVIDERS: PCP Nurse Practitioner Family; Referring Provider Psychiatry & Neurology Neurology; Visit Provider Psychiatry & Neurology Neurology
DX: M48.062 Spinal stenosis, lumbar region with neurogenic claudication (principal)
CPT/HCPCS: 72110

== ENCOUNTER → 2021-08-19 08:11 | Outpatient (CLI) | payer MEDICARE, SELFPAY ==
[2021-05-26 13:29] VITALS: BMI 34.3
--- NOTE | 2021-08-19 08:13 | CT_ITS ---
STUDY: CT CHEST, ABDOMEN T PELVIS WITH CONTRAST REASON FOR EXAM: Male, 81 years old. BLADDER CANCER - ASSESS TREATMENT RESPONSE RADIATION DOSAGE (If Supplied By Facility): CTDIvol = ( 20.83 ) mGy, DLP = ( 2036.66 ) mGycm TECHNIQUE: Transaxial imaging was performed following intravenous administration of IV 100mL Isovue-370. Individualized dose optimization techniques were used for this CT. COMPARISON: Comparison is made with prior CT scan of thorax dated 04/19/2021. FINDINGS: CHEST A right-sided alexander catheter is in situ with the tip in the superior vena cava. Persistent 7.4 mm pleural-based nodule in the posterior aspect of the right upper lobe. This has decreased in size as compared to prior study. This may represent a focal area of scarring. There is no demonstrated pleural abnormality. Sternal cerclage wires and vascular clips are present from a prior sternotomy and coronary artery bypass graft procedure (CABG). There are calcifications of the coronary arteries. Normal mediastinum. Normal hilar regions. Normal unenhanced pulmonary arteries. Normal aorta arch and descending thoracic aorta. There are multi-level degenerative changes of the thoracic spine. ABDOMEN Normal liver. Normal gallbladder and extrahepatic biliary system. Normal spleen. Normal pancreas. There is a small, circumscribed, smooth, low attenuation right adrenal mass, consistent with an adrenal adenoma. This is unchanged. Normal left adrenal gland. Normal right kidney. Normal left kidney. Normal visualized stomach. Normal small intestine. Normal colon. The appendix is visualized and appears normal. There is diffuse atherosclerotic calcification of the abdominal aorta is major visceral branches, without a demonstrated aneurysm. Normal inferior vena cava. Normal retroperitoneum. Small bilateral inguinal hernias. A nondilated small bowel loop is seen within the right inguinal hernia. There are diffuse degenerative changes of the visualized lumbar spine. PELVIS Mild degree of bladder wall thickening. The patient is status post TURP. Residual calcifications are seen along the inferior aspect of the prostate. Normal visualized small intestine. Normal visualized colon. There is no pelvic fluid. There is no pelvic lymphadenopathy or mass lesion. There is diffuse atherosclerotic calcification of the pelvic arteries. CT/CT Chest, Abd, Pel w/Contrast IMPRESSION: Stable examination. Electronically Signed: Og Oshea MD at 12:29 EDT , Service support ,
[2021-08-19 08:26] LABS: CREATININE FINGERSTICK 1.1 mg/dL (0.70-1.30); EGFR FINGERSTICK > 60.0000 mL/min (>60)
== END ==
PROVIDERS: PCP Nurse Practitioner Family; Referring Provider Internal Medicine Hematology & Oncology; Visit Provider Internal Medicine Hematology & Oncology
DX: C67.4 Malignant neoplasm of posterior wall of bladder (principal); C61 Malignant neoplasm of prostate; E86.0 Dehydration
CPT/HCPCS: 36591; 71260; 74177; 80053; 84153; 85025; 96360; 96361; J7030; Q9967; A4216

== ENCOUNTER 2021-09-26 09:00 | Outpatient (RCR) | payer MEDICARE, SELFPAY ==
--- NOTE | 2021-07-29 09:57 | HP.PTEVAL_ITS ---
Patient's Visit Information AKASH GREGORY is a 81 year old M referred to Physical Therapy by Dr. 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 Date of Evaluation: 07/29/21 Physical Therapist: AISLINN Gonsalez - Visit Plan Frequency: 2x /Week Duration: 2 Months Plan: 2X/ week for 8 weeks for 1.Neurocom testing,. 2. L LE strength (hip, knee and ankle), core stability, functional strengthening and transfers,. 3. Mitchell ce, posture, gait training, dual tasking, with HEP. HEP: LTR and SKC - Subjective Pt reports that his legs (especially the L leg) gives out on him with walking and down he will go with no warning. The Dr is going to set up a test (nerve conduction) which has not been set up yet. He reports that he has back pain all the time. He had back surgery in 2016 at [place] (Dr. Gene Hayden). He reports that he has had back pain for so long that he is used to living with it. He reports numbness in his L leg and that has been there quit awhile. He has a rollator that he has in the car and only uses it for long distances. He has had PD for a long time. He reports that he has shaking of his head and hands. Pt reports that he fell yesterday and has fallen about once a week. He is able to get up off the floor if he has something to pull himself up. - Pain back pain Pain Intensity (Out of 10): 6 - Objective Gait: Walks with L foot abducted with heels almost touching with increase veering and decrease step length and forward flexed posture, decrease arm swing and decreased heel to toe gait pattern. FGA 11. TUG 13:58. LE MMT: R hip flex 4-/5 and L hip flex 3+/4, R knee ext 4/5 and L 4-/5, R knee flex 4/5 and L 4-/5, R hip abd 4/5 and L hip abd 4-/5, Pt was able to do 1/4 normal ROM bridge. Pt is able to raise his heels and toes using the handrail in the hallway. LTR and SKC did not increase patients LB pain. Pt was able to transfer from sit to supine and ROLL L and R without issue. Tight gastroc and HS B. Stairs; up and down the stairs recip with 2 hand rails to pull self up. Pt struggles to get his R foot onto the step to ascend the stairs. - Balance/Special Test Scores Functional Gait Assessment Score: 11 % Disability: 63.3400 Oswestry Low Back Score: 19 - Goals Goal 1:: I HEP Goal Time Frame: 6-8 Weeks Goal 2:: Increase balance (increase FGA score by 5 points) (at time of eval score FGA was 11) Goal Time Frame: 6-8 Weeks Goal 3:: Increase LE strength by 1/2 muscle grade (at time of eval: LE MMT: R hip flex 4-/5 and L hip flex 3+/4, R knee ext 4/5 and L 4-/5, R knee flex 4/5 and L 4-/5, R hip abd 4/5 and L hip abd 4-/5, Pt was able to do 1/4 normal ROM bridge. Pt is able to raise his heels and toes using the handrail in the hallway). Goal Time Frame: 6-8 Weeks Goal 4:: Decrease frequency of weekly falls due to L leg giving out Goal Time Frame: 6-8 Weeks - Rehabilitation Potential Rehabilitation Potential: Good - Anticipated Interventions Patient/Client Instruction: Educate patient on: Condition, Plan of Care For the Purpose of:: To decrease pain, To increase ROM, To improve nutrient delivery to tissue, To increase oxygenation perfusion, To improve muscle performance and motor function, To improve ability to perform ADL's, To increase tolerance to activity/condition/position, To improve performance and independence with ADL's, To decrease level of supervision to perform tasks, To improve ability of physical actions for home/community/work/leisure, To improve gait and locomotor functions, To improve health of tissue, To decrease soft tissue restriction, To increase flexibility/ROM, To improve endurance, To improve balance, To improve safety with gait Therapeutic Exercise to Include: Strength training, Balance training, Postural training, Flexibilty training, Gait and locomotor training, Neuromotor development, Passive ROM, Active ROM, Dynamic Lumbar Stabilization For the Purpose of:: To decrease pain, To increase ROM, To improve nutrient delivery to tissue, To improve muscle performance and motor function, To improve ability to perform ADL's, To increase tolerance to activity/condition/position, To improve performance and independence with ADL's, To decrease level of supervision to perform tasks, To improve ability of physical actions for home/community/work/leisure, To improve gait and locomotor functions, To improve health of tissue, To decrease soft tissue restriction, To increase flexibility/ROM, To improve endurance, To improve balance, To improve safety with gait Functional Training to Include: Gait training For the Purpose of:: To improve gait and locomotor functions, To improve safety with gait Thank you for the opportunity to evaluate your patient. For Medicare and Medicare HMO plans, please review the plan of care and approve it. It will need to be FAXED BACK to us at [phone] for Medicare purposes. For Medicare only, by signing this I certify the plan of care. Please let me know if there are questions or concerns regarding this plan of care. Physician Signature: Date:
--- NOTE | 2021-09-26 09:40 | HP.PTDCSUM ---
It has been my pleasure to treat AKASH GREGORY referred by Dr. 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 Discharge Date: 09/26/21 Please see the following information for a summary of their discharge status. Subjective: Pt reports that his leg is not giving out since he started and thinks that his leg is stronger. He had a nerve conduction test but does not have the results yet. His back pain is the same. Pt feels that he is ready to be done with PT but he wants stuff to do at home. back pain Pain Intensity (Out of 10): 5 % Improvement: 50 Objective/Function: LE MMT: R hip flex 4/5 and L hip flex 4/5, R knee ext 4/5 and L 4/5, R knee flex 4/5 and L 4/5, R hip abd 4/5 and L hip abd 4/5, Pt was able to do 1/4 normal ROM bridge. Pt is able to raise his heels and toes using the handrail in the hallway). FGA: 15. Falls: None Goal 1:: I HEP Goal Progress: Goal Met Goal 2:: Increase balance (increase FGA score by 5 points) (at time of eval score FGA was 11) Goal Progress: Progressing Goal 3:: Increase LE strength by 1/2 muscle grade (at time of eval: LE MMT: R hip flex 4-/5 and L hip flex 3+/4, R knee ext 4/5 and L 4-/5, R knee flex 4/5 and L 4-/5, R hip abd 4/5 and L hip abd 4-/5, Pt was able to do 1/4 normal ROM bridge. Pt is able to raise his heels and toes using the handrail in the hallway). Goal Progress: Goal Met Goal 4:: Decrease frequency of weekly falls due to L leg giving out Goal Progress: Goal Met Plan: DC PT to HEP Discharge Comments: DC PT to HEP If there are questions or concerns regarding this patient's physical therapy, please feel free to call me at [phone]. Thank you for the referral of this patient. Sincerely, Jeanie Bryson, MPT Balance/Gait/Functional tests - Balance/Special Test Scores Functional Gait Assessment Score: 15 % Disability: 50.0000 Oswestry Low Back Score: 17
== END 2021-09-26 19:00 | disposition home or self-care (01) ==
LOC: PT 09:00
PROVIDERS: PCP Nurse Practitioner Family; Referring Provider Psychiatry & Neurology Neurology; Visit Provider Psychiatry & Neurology Neurology
DX: M48.062 Spinal stenosis, lumbar region with neurogenic claudication (principal); G20 Parkinson's disease
CPT/HCPCS: 97110; 97162; 97530

== ENCOUNTER → 2021-10-28 08:04 | Outpatient (CLI) | payer MEDICARE, SELFPAY ==
[2021-10-28 09:21] LABS: Erythrocyte Sedimentation Rate 12 mm/hr (0-20)
[2021-10-28 09:22] LABS: Hematocrit 34.9 % (40-54); Hemoglobin 11.2 g/dL (13.0-16.5); Mean Corp Hgb Conc 32.1 g/dL (32-36); Mean Corpuscular Hgb 31.4 pg (27.0-32.0); Mean Corpuscular Volume 97.8 fL (80-94); Mean Platelet Vol. 9.6 fl (6.2-12.0); Platelet Count 199 K/mm3 (150-450); RBC Distribution Width CV 14.3 % (11.6-14.6); RBC Distribution Width SD 51.4 fl (35.1-43.9); Red Blood Count 3.57 M/mm3 (4.6-6.2)
[2021-10-28 09:36] LABS: Hemoglobin A1c 6.6 % (3.8-5.6)
[2021-10-28 10:02] LABS: ALB/GLOB Ratio 0.9 RATIO (0.9-2.4); AST(SGOT) 17 U/L (15-37); Alanine Aminotransfer ALT/SGPT 10 U/L (16-61); Albumin, Serum 3.3 g/dL (3.2-5.0); Alkaline Phosphatase 67 U/L (45-117); Anion Gap 5 (5-15); BUN 22 mg/dL (7-18); BUN/Creat Ratio 17.6 RATIO (10-20); CRP < 2.90 mg/L (0.0-3.0); Calcium,Total 8.5 mg/dL (8.5-10.1); Chloride 111 mmol/L (98-107); Cholesterol 147 mg/dL (200); Creatinine, Serum 1.25 mg/dL (0.70-1.30); EST Glomerular Filtration Rate 59 mL/min (>60); Est Glom Filt Rate - Afr Amer 72 mL/min (>60); Globulin 3.8 g/dL (2.2-4.2); Glucose 141 mg/dL (74-106); High Density Lipoprotein 54 mg/dL; Potassium 4.4 mmol/L (3.5-5.1); Protein, Total 7.1 g/dL (6.4-8.2); Sodium Level 139 mmol/L (136-145); Triglycerides 112 mg/dL; Very Low Density Lipoprotein 22 mg/dL (5-40); Vitamin B12 227 pg/mL (211-911)
[2021-10-30 15:55] LABS: ANTINUCLEAR ANTIBODIES DIRECT Negative (Negative)
[2021-11-04 14:09] LABS: Albumin 3.5 g/dL (2.9-4.4); Alpha-1-Globulins 0.2 g/dL (0.0-0.4); Alpha-2-Globulins 0.6 g/dL (0.4-1.0); Cytoplasmic Ab (C-ANCA) <1:20 titer (Neg:<1:20); Gamma Globulin 1.2 g/dL (0.4-1.8); Immunoglobulin A 175 mg/dL (61-437); Immunoglobulin G 1202 mg/dL (603-1613); Immunoglobulin M 51 mg/dL (15-143); PROEL- TOTAL PROTEIN 6.4 g/dL (6.0-8.5); VITAMIN B6 5.7 ug/L (5.3-46.7)
[2021-11-04 16:11] LABS: Arsenic 7245 2 ug/L (2-23); Lead, Blood < 1 ug/dL (0-4); Mercury, Blood 85324 < 1.0 ug/L (0.0-14.9); Perinuclear Ab (P-ANCA) <1:20 titer (Neg:<1:20); Vitamin B1, Thiamine 104.9 nmol/L (66.5-200.0)
== END ==
PROVIDERS: PCP Nurse Practitioner Family; Referring Provider Psychiatry & Neurology Neurology; Visit Provider Psychiatry & Neurology Neurology
DX: E78.5 Hyperlipidemia, unspecified (principal); E11.9 Type 2 diabetes mellitus without complications; D63.8 Anemia in other chronic diseases classified elsewhere; G60.8 Other hereditary and idiopathic neuropathies; J44.9 Chronic obstructive pulmonary disease, unspecified; C67.9 Malignant neoplasm of bladder, unspecified; I10 Essential (primary) hypertension; N28.9 Disorder of kidney and ureter, unspecified; I25.10 Atherosclerotic heart disease of native coronary artery without angina pectoris
CPT/HCPCS: 36591; 80053; 80061; 82175; 82607; 82784; 83036; 83655; 83825; 84165; 84207; 84425; 85027; 85652; 86038; 86140; 86256; 86334; A4216

== ENCOUNTER 2022-02-17 08:34 | Outpatient (CLI) | payer MEDICARE, SELFPAY ==
--- NOTE | 2022-02-17 08:37 | NM_ITS ---
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 WHOLE BODY 99m Tc MDP RADIONUCLIDE BONE SCINTIGRAPHY COMPARISON: Previous whole body bone scintigraphy study dated 04/22/2021 FINDINGS: Following the intravenous administration of 28.0 mCi of 99m Tc MDP, whole body bone images reveal: 1. Increased radiopharmaceutical concentration is newly defined in the right iliac wing and acetabulum, right posterior ilium and persistently visualized in the third lumbar vertebra. 2. Enhanced tracer distribution is defined in the mid cervical spine posteriorly on the left and right, eighth-11th thoracic, first-second, fifth lumbar vertebra, right knee, bilateral wrists, the right hand, the visualized right elbow, acromioclavicular, sternoclavicular and glenohumeral compartments of both shoulders. 3. The remaining skeletal structures are scintigraphically unremarkable with the right-left renal images and urinary bladder activity identified. There appears to be evidence of markedly prominent right ureteric tracer distribution on the present examination. NM/Bone Scan Whole Body IMPRESSION: 1. 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 2. 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 3. 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 Electronically Signed: Ruben Dominguez DO at 8:06 EDT ,
== END 2022-02-17 23:59 | disposition home or self-care (01) ==
LOC: NM 08:35
PROVIDERS: PCP Nurse Practitioner Family; Referring Provider Internal Medicine Hematology & Oncology; Visit Provider Internal Medicine Hematology & Oncology
DX: C67.9 Malignant neoplasm of bladder, unspecified (principal); C79.51 Secondary malignant neoplasm of bone; C61 Malignant neoplasm of prostate
CPT/HCPCS: 78306; A9503

== ENCOUNTER 2022-02-24 08:29 | Outpatient (CLI) | payer MEDICARE, SELFPAY ==
--- NOTE | 2022-02-24 08:32 | CT_ITS ---
STUDY: CT CHEST, ABDOMEN T PELVIS WITH CONTRAST REASON FOR EXAM: Male, 81 years old. Urinary bladder AND PROSTATE CANCER S/P CHEMO AND SURGERY. Status post bladder resection. RADIATION DOSAGE (If Supplied By Facility): CTDIvol = ( 21.58 ) mGy, DLP = ( 2045.90 ) mGycm TECHNIQUE: Transaxial imaging was performed following intravenous administration of IV 100mL Isovue-300. Individualized dose optimization techniques were used for this CT. COMPARISON: Comparison is made with prior study dated 08/19/2021. FINDINGS: CHEST A right-sided portacatheter is seen with the tip in the superior vena cava. Stable 7 mm noncalcified pleural-based nodule in the posterior medial segment of the right upper lobe. This is seen on axial image #38. There is no demonstrated pleural abnormality. Sternal cerclage wires and vascular clips are present from a prior sternotomy and coronary artery bypass graft procedure (CABG). There are calcifications of the coronary arteries. Normal mediastinum. Normal hilar regions. Normal unenhanced pulmonary arteries. There is a mild degree of atherosclerotic calcification of the aortic arch with tortuosity and elongation of the aortic arch and descending thoracic aorta. There are multi-level degenerative changes of the thoracic spine. Multiple small gallstones. ABDOMEN The visualized lung bases are unremarkable. Coronary artery calcification. Normal liver. Tiny gallstones. Normal spleen. Normal pancreas. Normal bilateral adrenal glands. Mild degree of right hydronephrosis. Normal left kidney. 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 Normal visualized stomach. Normal small intestine. Normal colon. The appendix is visualized and appears normal. There is diffuse atherosclerotic calcification of the abdominal aorta and its major visceral branches, without a demonstrated aneurysm. Normal inferior vena cava. Normal retroperitoneum. Small bilateral inguinal hernias containing fat. There are diffuse degenerative changes of the visualized lumbar spine. PELVIS Ileostomy in the right lower quadrant. The patient is status post urinary bladder resection. The patient is status post prostatectomy. Normal visualized small intestine. Normal visualized colon. There is no pelvic fluid. There is no pelvic lymphadenopathy or mass lesion. There is diffuse atherosclerotic calcification of the pelvic arteries. CT/CT Chest, Abd, Pel w/Contrast IMPRESSION: Mild degree of right hydronephrosis and hydroureter. Status post urinary bladder resection and right ileal loop. Electronically Signed: Og Oshea MD at 10:52 EDT ,
[2022-02-24 08:55] LABS: CREATININE FINGERSTICK 1.1 mg/dL (0.70-1.30); EGFR FINGERSTICK > 60.0000 mL/min (>60)
[2022-02-24] MEDS: 0.9% Saline Lock 10 ML Syringe IV ×2 (08:55→09:02)
== END 2022-02-24 23:59 | disposition home or self-care (01) ==
LOC: CT 08:31
PROVIDERS: PCP Nurse Practitioner Family; Referring Provider Internal Medicine Hematology & Oncology; Visit Provider Internal Medicine Hematology & Oncology
DX: C67.9 Malignant neoplasm of bladder, unspecified (principal); C61 Malignant neoplasm of prostate
CPT/HCPCS: 36592; 71260; 74177; 80053; 84153; 85025; J7040; Q9967; A4216

== ENCOUNTER → 2022-04-28 | Outpatient (CLI) | payer MEDICARE, SELFPAY ==
[2022-04-28 10:24] LABS: Hematocrit 37.9 % (40-54); Hemoglobin 12.3 g/dL (13.0-16.5); Mean Corp Hgb Conc 32.5 g/dL (32-36); Mean Corpuscular Hgb 32.5 pg (27.0-32.0); Mean Corpuscular Volume 100.3 fL (80-94); Mean Platelet Vol. 9.5 fl (6.2-12.0); Platelet Count 239 K/mm3 (150-450); RBC Distribution Width CV 13.3 % (11.6-14.6); RBC Distribution Width SD 49.5 fl (35.1-43.9); Red Blood Count 3.78 M/mm3 (4.6-6.2); White Blood Count 4.8 K/mm3 (4.4-11.0)
[2022-04-28 10:52] LABS: ALB/GLOB Ratio 0.9 RATIO (0.9-2.4); AST(SGOT) 14 U/L (15-37); Alanine Aminotransfer ALT/SGPT 23 U/L (16-61); Albumin, Serum 3.4 g/dL (3.2-5.0); Alkaline Phosphatase 73 U/L (45-117); Anion Gap 6 (5-15); BUN 27 mg/dL (7-18); BUN/Creat Ratio 21.3 RATIO (10-20); Calcium,Total 8.4 mg/dL (8.5-10.1); Chloride 107 mmol/L (98-107); Cholesterol 179 mg/dL (200); Creatinine, Serum 1.27 mg/dL (0.70-1.30); EST Glomerular Filtration Rate 58 mL/min (>60); Est Glom Filt Rate - Afr Amer 70 mL/min (>60); Globulin 3.8 g/dL (2.2-4.2); Glucose 212 mg/dL (74-106); High Density Lipoprotein 50 mg/dL; PSA,Total - Annual Screen < 0.01 ng/mL (0.00-4.00); Potassium 4.7 mmol/L (3.5-5.1); Protein, Total 7.2 g/dL (6.4-8.2); Sodium Level 137 mmol/L (136-145); Triglycerides 177 mg/dL; Very Low Density Lipoprotein 35 mg/dL (5-40)
[2022-04-28 11:02] LABS: PTHIN 58.6 pg/mL (18.4-80.1)
[2022-04-28 11:20] LABS: Vitamin B12 814 pg/mL (211-911)
[2022-05-08 18:03] LABS: Renin, Plasma 1.037 ng/mL/hr (0.167-5.380)
== END | disposition home or self-care (01) ==
LOC: MEDOUTP 09:31
PROVIDERS: PCP Nurse Practitioner Family; Referring Provider Nurse Practitioner Family; Visit Provider Nurse Practitioner Family
DX: D53.9 Nutritional anemia, unspecified (principal); J44.9 Chronic obstructive pulmonary disease, unspecified; E11.9 Type 2 diabetes mellitus without complications; N28.9 Disorder of kidney and ureter, unspecified; I10 Essential (primary) hypertension; E78.5 Hyperlipidemia, unspecified; Z12.5 Encounter for screening for malignant neoplasm of prostate
CPT/HCPCS: 36591; 80053; 80061; 82607; 82746; 83036; 83970; 84153; 84244; 85027; A4216; G0103

== ENCOUNTER 2022-05-26 08:01 | Outpatient (CLI) | payer MEDICARE, SELFPAY ==
--- NOTE | 2022-05-26 08:03 | CT_ITS ---
STUDY: CT PELVIS WITHOUT CONTRAST REASON FOR EXAM: Male, 82 years old. F/U ABN BONE SCAN WITH NO CORRESPONDING ABN CT -- ATTN: BONES NO CONTRAST RADIATION DOSAGE (If Supplied By Facility): CTDIvol = ( 28.21 ) mGy, DLP = ( 903.45 ) mGycm TECHNIQUE: Transaxial imaging of the pelvis was performed with oral contrast, and without intravenous administration of contrast material. Multiplanar coronal and sagittal images were reformatted. Individualized dose optimization techniques were used for this CT. COMPARISON: Comparison is made with prior bone scan dated 02/17/2022. FINDINGS: The patient is status post cystectomy with ileal loop in the right lower quadrant. Normal visualized small intestine. Normal visualized colon. There is no pelvic fluid. There is no pelvic mass lesion or lymphadenopathy. There is diffuse atherosclerotic calcification of the pelvic arteries. Small bilateral inguinal hernias. Pediatric changes of the sacroiliac joints bilaterally. Osteoarthritis of both hip joints. No bony abnormality is seen. CT/Pelvis without IV Contrast IMPRESSION: Degenerative changes of the bony structures. No sclerotic or lesion is seen. Electronically Signed: Og Oshea MD at 9:08 EDT ,
--- NOTE | 2022-05-26 08:03 | NM_ITS ---
CLINICAL: Male, 82 years old. F/U ABN BONE SCAN WITH NO CORRESPONDING ABN CT WHOLE BODY NUCLEAR BONE SCAN TECHNIQUE: Following the IV administration of 28.4 mCi of Tc MDP, whole body bone imaging was performed with a gamma camera following a three hour delay. COMPARISON STUDIES : Comparison is made with prior bone scan dated 02/17/2022. FINDINGS: Persistent increase in radiopharmaceutical uptake in the right iliac wing and right acetabulum. This also involvement of the posterior ilium. Stable increased uptake in the L3 vertebrae. There is evidence of a right hydronephrosis and right hydroureter. Mild uptake in both knee joints likely worse on the right side suggestive of degenerative changes. NM/Bone Scan Whole Body IMPRESSION: Stable examination. Electronically Signed: Og Oshea MD at 14:36 EDT ,
== END 2022-05-26 23:59 | disposition home or self-care (01) ==
PROVIDERS: PCP Nurse Practitioner Family; Visit Provider Internal Medicine Hematology & Oncology
DX: R94.8 Abnormal results of function studies of other organs and systems (principal); C67.4 Malignant neoplasm of posterior wall of bladder; C61 Malignant neoplasm of prostate; M16.0 Bilateral primary osteoarthritis of hip; E66.9 Obesity, unspecified
CPT/HCPCS: 36591; 72192; 78306; 80053; 85025; A9503; A4216

== ENCOUNTER → 2022-08-25 | Outpatient (CLI) | payer MEDICARE, SELFPAY ==
--- NOTE | 2022-08-25 08:35 | CT_ITS ---
STUDY: CT CHEST, ABDOMEN T PELVIS WITH CONTRAST REASON FOR EXAM: Male, 82 years old. F/U BLADDER CA RADIATION DOSAGE (If Supplied By Facility): CTDIvol = ( 22.30 ) mGy, DLP = ( 3332.78 ) mGycm TECHNIQUE: Transaxial imaging was performed following intravenous administration of IV 100mL Isovue-370. Multiplanar coronal and sagittal images were reformatted. Individualized dose optimization techniques were used for this CT. COMPARISON: Comparison is made with prior examination dated 02/24/2022. FINDINGS: CHEST A right-sided portacatheter is seen with the tip in the superior vena cava. Stable 7.2 mm noncalcified pleural-based nodule in the posterior medial segment of the right lower lobe as seen on image #42. There is no demonstrated pleural abnormality. There are calcifications of the coronary arteries. Sternal cerclage wires and vascular clips are present from a prior sternotomy and coronary artery bypass graft procedure (CABG). Normal mediastinum. Normal hilar regions. Normal unenhanced pulmonary arteries. There is atherosclerotic calcification of the aortic arch with tortuosity and elongation of the aortic arch and descending thoracic aorta. There are multi-level degenerative changes of the thoracic spine. There is no demonstrated abnormality of the visualized upper abdomen. ABDOMEN Normal liver. Small gallstones are seen in the dependent portion of the gallbladder lumen. Normal spleen. Normal pancreas. Normal bilateral adrenal glands. Normal right kidney. Normal left kidney. Normal visualized stomach. Normal small intestine. Normal colon. The appendix is visualized and appears normal. There is diffuse atherosclerotic calcification of the abdominal aorta and its major visceral branches, without a demonstrated aneurysm. Normal inferior vena cava. Normal retroperitoneum. An ileostomy is once again seen in the anterior right lower quadrant. There are diffuse degenerative changes of the visualized lumbar spine. PELVIS The patient is status post cystectomy. Normal visualized small intestine. Normal visualized colon. There is no pelvic fluid. There is no pelvic lymphadenopathy or mass lesion. There is diffuse atherosclerotic calcification of the pelvic arteries. Small right inguinal hernia containing fat. There are diffuse degenerative changes of the visualized lumbar spine. CT/CT Chest, Abd, Pel w/Contrast IMPRESSION: Stable examination. Status post cystectomy and ileal loop in the anterior right lower quadrant. Electronically Signed: Og Oshea MD at 12:31 EDT ,
[2022-08-25 09:00] LABS: CREATININE FINGERSTICK 1.1 mg/dL (0.70-1.30); EGFR FINGERSTICK > 60.0000 mL/min (>60)
[2022-08-25] MEDS: 0.9% Saline Lock 10 ML Syringe IV (09:06)
[2022-08-25 09:07] LABS: Absolute Lymphocyte Count 0.95 X10^3/uL (0.83-4.51); Absolute Neutrophil Count 6.6 X10^3/uL (2.0-7.7); Basophil# 0.02 X10^3/uL; Basophil% 0.2 % (0-1); Eosinophil# 0.07 X10^3/uL; Eosinophils% 0.8 % (0-5); Hematocrit 39.3 % (40-54); Hemoglobin 12.6 g/dL (13.0-16.5); Lymphocyte # 0.95 X10^3/ul (0.83-4.51); Lymphocyte % 11.4 % (19-41); Mean Corp Hgb Conc 32.1 g/dL (32-36); Mean Corpuscular Hgb 32.1 pg (27.0-32.0); Mean Corpuscular Volume 100.3 fL (80-94); Mean Platelet Vol. 9.6 fl (6.2-12.0); Monocyte% 8.4 % (0-10); NRBC Flagged by Analyzer 0 % (0-5); Neutrophil # 6.56 X10^3/uL (2.7-7.7); Platelet Count 215 K/mm3 (150-450); RBC Distribution Width CV 14.2 % (11.6-14.6); RBC Distribution Width SD 51.8 fl (35.1-43.9); Red Blood Count 3.92 M/mm3 (4.6-6.2); White Blood Count 8.3 K/mm3 (4.4-11.0)
[2022-08-25 09:25] LABS: ALB/GLOB Ratio 0.9 RATIO (0.9-2.4); AST(SGOT) 18 U/L (15-37); Alanine Aminotransfer ALT/SGPT 22 U/L (16-61); Albumin, Serum 3.5 g/dL (3.2-5.0); Alkaline Phosphatase 65 U/L (45-117); Anion Gap 7 (5-15); BUN 23 mg/dL (7-18); BUN/Creat Ratio 18.1 RATIO (10-20); Calcium,Total 8.8 mg/dL (8.5-10.1); Chloride 109 mmol/L (98-107); Creatinine, Serum 1.27 mg/dL (0.70-1.30); EST Glomerular Filtration Rate 58 mL/min (>60); Est Glom Filt Rate - Afr Amer 70 mL/min (>60); Glucose 184 mg/dL (74-106); PSA,Total- Diagnostic < 0.01 ng/mL (0.0-4.0); Potassium 4.6 mmol/L (3.5-5.1); Protein, Total 7.5 g/dL (6.4-8.2); Sodium Level 140 mmol/L (136-145)
== END | disposition home or self-care (01) ==
PROVIDERS: PCP Nurse Practitioner Family; Referring Provider Internal Medicine Hematology & Oncology; Visit Provider Internal Medicine Hematology & Oncology
DX: C67.9 Malignant neoplasm of bladder, unspecified (principal); C61 Malignant neoplasm of prostate; Z90.6 Acquired absence of other parts of urinary tract
CPT/HCPCS: 71260; 74177; 80053; 84153; 85025; J7040; Q9967; A4216

== ENCOUNTER → 2023-02-23 | Outpatient (CLI) | payer MEDICARE, SELFPAY ==
--- NOTE | 2023-02-23 08:33 | CT_ITS ---
STUDY: CT CHEST, ABDOMEN T PELVIS WITH CONTRAST REASON FOR EXAM: Male, 82 years old. Bladder cancer surveillance. RADIATION DOSAGE (If Supplied By Facility): CTDIvol = ( 20.40 ) mGy, DLP = ( 2225.40 ) mGycm TECHNIQUE: Transaxial imaging was performed following intravenous administration of IV 100mL Isovue-300. Individualized dose optimization techniques were used for this CT. COMPARISON: Comparison is made with prior examination of August 25, 2022. FINDINGS: A right-sided portacatheter is seen with the tip in the superior vena cava. CHEST Stable small benign-appearing bilateral axillary lymph nodes. Stable 6 mm noncalcified pleural-based nodule in the posteromedial aspect of the right lower lobe as seen on axial image #47. There is no demonstrated pleural abnormality. Sternal cerclage wires and vascular clips are present from a prior sternotomy and coronary artery bypass graft procedure (CABG). There are calcifications of the coronary arteries. Normal mediastinum. Normal hilar regions. Normal unenhanced pulmonary arteries. Normal aorta arch and descending thoracic aorta. There are multi-level degenerative changes of the thoracic spine. There is no demonstrated abnormality of the visualized upper abdomen. ABDOMEN Normal liver. The gallbladder is contracted containing multiple small gallstones along its dependent portion. Normal spleen. Normal pancreas. Normal bilateral adrenal glands. Normal right kidney. Normal left kidney. Normal visualized stomach. Normal small intestine. Normal colon. The appendix is visualized and appears normal. There is diffuse atherosclerotic calcification of the abdominal aorta and its major visceral branches, without a demonstrated aneurysm. Normal inferior vena cava. Normal retroperitoneum. Small bilateral inguinal hernias containing fat. There are diffuse degenerative changes of the visualized lumbar spine. PELVIS The patient is status post cystoprostatectomy with a ureteral ilial conduit in the lower right anterior abdomen. Surgical sutures are seen in the distal ileum. There is no pelvic fluid. There is no pelvic lymphadenopathy or mass lesion. There is diffuse atherosclerotic calcification of the pelvic arteries. CT/CT Chest, Abd, Pel w/Contrast IMPRESSION: Stable examination. Electronically Signed: Og Oshea MD at 13:00 EDT ,
[2023-02-23 09:00] LABS: CREATININE FINGERSTICK 1.3 mg/dL (0.70-1.30)
== END | disposition home or self-care (01) ==
LOC: CT 08:30
PROVIDERS: PCP Nurse Practitioner Family; Referring Provider Nurse Practitioner Family; Visit Provider Nurse Practitioner Family
DX: C67.9 Malignant neoplasm of bladder, unspecified (principal)
CPT/HCPCS: 71260; 74177; Q9967

== ENCOUNTER → 2023-04-20 | Outpatient (CLI) | payer MEDICARE, SELFPAY ==
--- NOTE | 2023-04-20 08:05 | CT_ITS ---
STUDY: CT ABDOMEN AND PELVIS WITH CONTRAST REASON FOR EXAM: Male, 83 years old. Diffuse abdominal pain RADIATION DOSAGE (If Supplied By Facility): CTDIvol = ( 19.77 ) mGy, DLP = ( 1165.03 ) mGycm TECHNIQUE: Transaxial images were obtained from the dome of the diaphragm to the symphysis pubis without oral contrast. IV 100mL Isovue-370 was administered. Sagittal and coronal images were reconstructed. Individualized dose optimization techniques were used for this CT. COMPARISON: None. FINDINGS: The visualized lung bases are unremarkable. The visualized portions of the heart are within normal limits. Normal liver. There are multiple gallstones. Normal spleen. Normal pancreas. Normal bilateral adrenal glands. No obstructive uropathy, or suspicious solid renal lesion, there are vascular calcifications in both kidneys. Stable 1 cm exophytic cyst in the right kidney, no specific follow-up needed. Normal visualized stomach. Normal small intestine. Normal colon. The appendix is visualized and appears normal. Appendix seen on coronal reconstructed images 43 through 65 Stable ileal conduit in the right lower abdomen, no complications. There is diffuse atherosclerotic calcification of the abdominal aorta, without a demonstrated aneurysm. Normal inferior vena cava. Normal retroperitoneum. There has been previous removal of the bladder and prostate. Small fat-containing inguinal hernias unchanged. There are diffuse degenerative changes of the visualized lumbar spine, and pelvis, no demonstrated fracture but there is evidence of previous vertebral body fusion between L3 and L4. CT/Abdomen/Pelvis W IV Cont ONLY IMPRESSION: Cholelithiasis, no CT evidence of acute cholecystitis No obstructive uropathy or suspicious solid renal lesion No free intraperitoneal fluid, air, or suspicious adenopathy, normal appendix visualized Stable ileal conduit in the right lower quadrant after previous cystectomy and prostatectomy Degenerative bony changes Electronically Signed: Maurizio Kaye MD at 15:36 EDT ,
[2023-04-20 08:30] LABS: CREATININE FINGERSTICK 1.2 mg/dL (0.70-1.30); EGFR FINGERSTICK > 60.0000 mL/min (>60)
== END | disposition home or self-care (01) ==
LOC: CT 08:04
PROVIDERS: PCP Nurse Practitioner Family; Referring Provider Urology; Visit Provider Urology
DX: R10.84 Generalized abdominal pain (principal)
CPT/HCPCS: 74177; Q9967

== ENCOUNTER → 2023-05-08 | Outpatient (CLI) | payer MEDICARE, SELFPAY ==
--- NOTE | 2023-05-08 16:20 | PFT ---
INTRODUCTION: The patient is a 83-year-old male that presents for pulmonary function studies secondary to a diagnosis of COPD. Respiratory therapy reported good patient effort. Bronchodilators were used during testing. INTERPRETATION: Forced expiration spirometry demonstrates the presence of a mild large airways obstructive ventilatory defect. There was no significant response to aerosolized bronchodilators. Spirograms are of good quality and plateau normally. Body plethysmography was performed and revealed lung volumes to be within normal limits. Diffusing capacity by single breath CO was also within normal limits. IMPRESSION: Irreversible mild large airways obstructive ventilatory impairment with preserved lung volumes and diffusion capacity.
== END | disposition home or self-care (01) ==
PROVIDERS: PCP Nurse Practitioner Family; Referring Provider Internal Medicine Critical Care Medicine; Visit Provider Internal Medicine Critical Care Medicine
DX: J44.9 Chronic obstructive pulmonary disease, unspecified (principal)
CPT/HCPCS: 94060; 94726; 94729

== ENCOUNTER 2023-09-05 10:00 | Outpatient (RCR) | payer MEDICARE, SELFPAY ==
--- NOTE | 2023-07-27 12:01 | HP.PTEVAL ---
Patient's Visit Information Visit Information Visit Information: AKASH GREGORY is a 83 year old M referred to Physical Therapy by Dr. Jordan Tineo MD with a diagnosis of PD, Lumbar polyradiculopathy, spinal stenosis with claudication. Date of Evaluation: 07/27/23 Physical Therapist: AISLINN Gonsalez Visit Plan Frequency: 2x /Week Duration: 2 Months Plan: 2X/ week for 8 weeks for LE strength (hip, knee and ankle jasbir the L), gait training, endurance, functional strength, dual tasking, balance with HEP May use rollator to help build endurance while here in the clinic Subjective Subjective: His Dr set up PT because he has PD and more pronounced than what it was before. He is having trouble with back and his L leg does not work. His L leg feels numb a lot of the time. His L leg has not given out on him for awhile. He has to lift his L leg to get into the car with his hands. He has had no falls. reports that he does fall but is able to crawl and get himself up. He has not tried walking with a rollator or a cane. He gets SOB. He mows (riding mower) and helps out his neighbor. He just does not just sit on his ass. He has 3-4 steps up to the house with a railing but he has a ramp that he uses most of the time. He feels like he has gotten weaker over the last year. He feels that his back and L leg is holding him back. He has a tremor. They messed up all his meds and he is now on different meds. They just started the new dosages. 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 Does ok with heel raises with UE support LE MMT: R hip flex 21.1 and L hip flex 15.7 R knee ext 24.6 and L 19.5 R knee flex 14.2 and L knee flex 15.9 He can not roll over in bed due to catheter bag. FGA: 8 Pt is able to get up out of a chair without the use of his UE's on first attempt Balance/Special Test Scores Functional Gait Assessment Score: 8 % Disability: 73.3400 Lower Extremity Functional Score: 25 Goals Goal 1:: I HEP Goal Time Frame: 6-8 Weeks Goal 2:: Increase LE strength (especially the L) (at the time of the eval: LE MMT: R hip flex 21.1 and L hip flex 15.7 R knee ext 24.6 and L 19.5 R knee flex 14.2 and L knee flex 15.9) Goal Time Frame: 6-8 Weeks Goal 3:: Be able to walk around the entire dept without SOB or rest break Goal Time Frame: 6-8 Weeks Rehabilitation Potential Rehabilitation Potential: Good Anticipated Interventions Patient/Client Instruction: Educate patient on: Condition and Plan of Care For the Purpose of:: To improve muscle performance and motor function, To improve ability to perform ADL's, To increase tolerance to activity/condition/position, To improve performance and independence with ADL's, To decrease level of supervision to perform tasks, To improve gait and locomotor functions, To improve endurance, To improve balance and To improve safety with gait Therapeutic Exercise to Include: Strength training, Endurance training, Gait and locomotor training and Neuromotor development For the Purpose of:: To improve muscle performance and motor function, To improve ability to perform ADL's, To increase tolerance to activity/condition/position, To improve performance and independence with ADL's, To decrease level of supervision to perform tasks, To improve ability of physical actions for home/community/work/leisure, To improve gait and locomotor functions, To improve endurance, To improve balance and To improve safety with gait Functional Training to Include: Gait training For the Purpose of:: To improve gait and locomotor functions Text: Thank you for the opportunity to evaluate your patient. For Medicare and Medicare HMO plans, please review the plan of care and approve it. It will need to be FAXED BACK to us at [phone] for Medicare purposes. For Medicare only, by signing this I certify the plan of care. Please let me know if there are questions or concerns regarding this plan of care. Physician Signature: Date:
--- NOTE | 2023-09-05 10:55 | HP.PTDCSUM ---
Discharge Summary D/C summary: It has been my pleasure to treat AKASH GREGORY referred by Dr. Jordan Tineo MD, with the diagnosis of PD, Lumbar polyradiculopathy, spinal stenosis with claudication for a total of 9 visit(s). Discharge Date: 09/05/23 Please see the following information for a summary of their discharge status. Subjective Subjective: Pt is ready to be on his own. He reports that he has weights on paper. He will try and come in with his granddaughter. Pain back pain: Pain Intensity (Out of 10): 5 L leg pain: Pain Intensity (Out of 10): 0 Objective Objective/Function: LE MMT: R hip flex 21.1 and L hip flex 15.7 R knee ext 32.2 and L 28.2 R knee flex 17.2 and L knee flex 16.2 Able to walk around entire dept with min SOB and no rest breaks Pt has Indep set up of gym equipment today. Goals Goal 1:: I HEP Goal Progress: Goal Met Goal 2:: Increase LE strength (especially the L) (at the time of the eval: LE MMT: R hip flex 21.1 and L hip flex 15.7 R knee ext 24.6 and L 19.5 R knee flex 14.2 and L knee flex 15.9) Goal Progress: Goal Met Goal 3:: Be able to walk around the entire dept without SOB or rest break Goal Progress: Goal Met Plan Plan: DC PT to [facility] routine D/C Information Discharge Comments: DC PT to I [facility] routine d/c sentence: If there are questions or concerns regarding this patient's physical therapy, please feel free to call me at [phone]. Thank you for the referral of this patient. Sincerely, Jeanie Bryson, MPT Balance/Gait/Functional tests Balance/Special Test Scores Functional Gait Assessment Score: 8 % Disability: 73.3400 Lower Extremity Functional Score: 38
== END 2023-09-05 19:00 | disposition home or self-care (01) ==
LOC: PT 10:00
PROVIDERS: PCP Nurse Practitioner Family; Referring Provider Psychiatry & Neurology Neurology; Visit Provider Psychiatry & Neurology Neurology
DX: G20 Parkinson's disease (principal); M54.16 Radiculopathy, lumbar region; M48.062 Spinal stenosis, lumbar region with neurogenic claudication
CPT/HCPCS: 97110; 97161

== ENCOUNTER → 2023-10-23 | Outpatient (CLI) | payer MEDICARE, SELFPAY ==
--- NOTE | 2023-10-23 08:14 | NM_ITS ---
CLINICAL: 82-year-old male with history of primary prostate carcinoma. WHOLE BODY 99m Tc MDP RADIONUCLIDE BONE SCINTIGRAPHY COMPARISON: Previous whole body bone scintigraphy study dated 05/26/2022, CT of the chest, abdomen and pelvis 02/23/2023 FINDINGS: Following the intravenous administration of 25.5 mCi of 99m Tc MDP, whole body bone images reveal: 1. Increased radiopharmaceutical concentration remains apparent in the third lumbar vertebra posteriorly on the left and right. 2. Redefined increased uptake is noted in the mid cervical spine posteriorly on the left and right, the 11th thoracic vertebra posteriorly on the left, the acromioclavicular and sternoclavicular compartments of both shoulders, the right hand, the left wrist, the visualized right elbow, the right knee articulation, the left midfoot, right and left sacroiliac joints. 3. The remaining skeletal structures are scintigraphically unremarkable with normal-appearing renal images. 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 NM/Bone Scan Whole Body IMPRESSION: 1. 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 A component of neoplasm is not completely excluded. 2. 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 Plain film radiography correlation may be of benefit in the bilateral sacroiliac joints. 3. Overall compared to the previous examination dated 05/26/2022, uptake previously described involving the right acetabulum appears to represent the patient''s visualized ostomy and urinary diversion. Electronically Signed: Ruben Dominguez DO at 9:41 EST ,
== END | disposition home or self-care (01) ==
LOC: NM 08:10
PROVIDERS: PCP Nurse Practitioner Family; Referring Provider Internal Medicine Hematology & Oncology; Visit Provider Internal Medicine Hematology & Oncology
DX: C67.9 Malignant neoplasm of bladder, unspecified (principal); C61 Malignant neoplasm of prostate
CPT/HCPCS: 78306; A9503

== ENCOUNTER → 2023-10-26 | Outpatient (CLI) | payer MEDICARE, SELFPAY ==
--- NOTE | 2023-10-26 08:37 | CT_ITS ---
STUDY: CT CHEST, ABDOMEN T PELVIS WITH CONTRAST REASON FOR EXAM: Male, 83 years old. F/U BLADDER AND PROSTATE CANCER IV CONT ONLY RADIATION DOSAGE (If Supplied By Facility): CTDIvol = ( 22.85 ) mGy, DLP = ( 2522.03 ) mGycm TECHNIQUE: Transaxial imaging was performed following intravenous administration of IV 100mL Isovue-300. Individualized dose optimization techniques were used for this CT. COMPARISON: Comparison is made with prior study dated February 23, 2023. FINDINGS: CHEST A right-sided portacatheter is seen with the tip in the superior vena cava. Stable small benign-appearing bilateral axillary lymph nodes. Stable focal noncalcified pleural based nodule measuring 6 mm in the posterior medial aspect of the right upper lobe as seen on axial image #41. This most likely represents focal scarring. Sternal cerclage wires and vascular clips are present from a prior sternotomy and coronary artery bypass graft procedure (CABG). There are calcifications of the coronary arteries. Normal mediastinum. Normal hilar regions. Normal unenhanced pulmonary arteries. There is atherosclerotic tortuosity of the aortic arch and descending thoracic aorta. There are multi-level degenerative changes of the thoracic spine. Heterogeneous appearance of the lower thoracic vertebrae. Correlation with the bone scan is recommended. ABDOMEN Normal liver. There are multiple small gallstones. Normal spleen. Normal pancreas. Normal bilateral adrenal glands. Bilateral hydronephrosis more prominent on the right side. Normal visualized stomach. Normal small intestine. Normal colon. There is non-visualization of the appendix. There is diffuse atherosclerotic calcification of the abdominal aorta and its major visceral branches, without a demonstrated aneurysm. Normal inferior vena cava. Normal retroperitoneum. Normal abdominal wall. There are diffuse degenerative changes of the visualized lumbar spine. PELVIS The patient is status post cystectomy with ileal loop. There is no pelvic fluid. There is no pelvic lymphadenopathy or mass lesion. There is diffuse atherosclerotic calcification of the pelvic arteries. CT/CT Chest, Abd, Pel w/Contrast IMPRESSION: Stable examination. Heterogeneous appearance of the thoracic vertebrae as described. Correlation with the bone scan recommended. Electronically Signed: Og Oshea MD at 14:51 EST ,
[2023-10-26 08:56] LABS: CREATININE FINGERSTICK < 1.0 mg/dL (0.70-1.30); EGFR FINGERSTICK > 60.0000 mL/min (>60)
== END | disposition home or self-care (01) ==
PROVIDERS: PCP Nurse Practitioner Family; Referring Provider Internal Medicine Hematology & Oncology; Visit Provider Internal Medicine Hematology & Oncology
DX: C61 Malignant neoplasm of prostate (principal); C67.9 Malignant neoplasm of bladder, unspecified
CPT/HCPCS: 71260; 74177; Q9967

== ENCOUNTER → 2023-12-07 | Outpatient (CLI) | payer MEDICARE, SELFPAY ==
--- OUTSIDE RECORDS SUMMARY | 2023-12-07 09:46 | XMS RPT_ITS | CCD ---
Author Name Unknown Address [address] [place] [address] Organization [facility] Care Team Providers Care Industrial Cook Name Role Phone Марина Hurtado Unavailable Unavailable Марина Hurtado Unavailable Unavailable Марина Hurtado Unavailable Unavailable Ruben Angela Unavailable Unavail able Alicia Apodaca Unavailable Unavailable India Rajan Unavailable Unavailable Unavailable Primary Care Provider Unavailbaldemar e VALERIY SQUEAK RATTLE AND LEAK REPAIRER - YAO, RUBEN James Primary Care Phys ician Ruben Angela Primary Care Provider [phone] RUBEN WOOD APRN, CNP Attending U navailable VALERIYRANDALL YANG - YAO, RUBEN James Primary Care U navailable VALERIY CELIA - YAO, RUBEN James Primary Care U navailMANISH Negron Attending Unavailable SEFFENS SQUEAK RATTLE AND LEAK REPAIRER-ROUTE RETURNERJORGE Attending Cierrai nayeli ANEGLA APRN - RUBEN SAMAYOA Primary Care U navailable VALERIY SQUEAK RATTLE AND LEAK REPAIRER - YAO, RUBEN James Attending U navailable VALERIY SQUEAK RATTLE AND LEAK REPAIRER - RUBEN SAMAYOA Primary Care U navailmireya BECERRIL MD, DR HASSAN Consulting Unavailab MANISH Gonsalez Attending Unavailable VALERIYRANDALL YANG - RUBEN SAMAYOA Primary Care U navailable VALERIY SQUEAK RATTLE AND LEAK REPAIRER - YAO, RUBEN James Primary Care U AIDEN Wooten MD Attending Unavailable MANISH MESA Attending Unavailable VALERIY SQUEAK RATTLE AND LEAK REPAIRER - YAO, RUBEN James Primary Care U navailable VALERIY SQUEAK RATTLE AND LEAK REPAIRER - YAO, RUBEN James Attending U navailable VALERIYRANDALL YANG - YAO, RUBEN James Primary Care U navNINA Alfonso Attending Unavailable RUBEN ANGELA Primary Care Unavailable NINA TINEO Attending Unavailable VALERIY, RUBEN Primary Care Unavailable Medications Current Medications Medication Drug Class(es) Dates Sig (Normalized) Sig (Original) acetaminophen 325 mg / HYDROcodone bitartrate 5 mg oral tablet (20 sources) Opioid Agonist Start: 06-18-2023 End: 07-18-2023 take 1 tablet by mouth twice daily as needed for pain [place] 325- 5 mg oral tablet Dose = 1 tab(s), Oral, BID, PRN pain Fill Date: 06/26/2023, # 60 tab(s), 0 Refill(s), Pharmacy: [facility], Chronic Back Pain, without current exacerbation Bladder cancer, 171.5, cm, 06/18/23 9:04:00 EDT, Height, 111.7, kg, 06/18/23 9:04:00 EDT, Dosing Weight Start Date: 06/18/23 Stop Date: 07/18/23 Status: Ordered Completed/Discontinued Medications Medication Drug Class(es) Dates Sig (Normalized) Sig (Original) albuterol 0.83 mg/ml inhalant solution (6 sources) beta2-Adrenergic Agonist Start: 09-11-2017 ALBUTEROL SULFATE (2.5 MG/3ML) 0.083% NEBU INH q4h as needed ALBUTEROL SULFATE [id number] India Gomez [employer] Problems Active Problems Problem Classification Problem Date Documented Da te Episodic/Chronic Cancer of bladder (7 sources) Malignant tumor of urinary bladder 01-28-2021 Chronic Past or Other Problems Problem Classification Problem Date Documented Da te Episodic/Chronic Spondylosis; intervertebral disc disorders; other back problems (15 sources) Backache; Translations: [Polyradiculopat hy ] Onset: 07-17-2023 06-20-2021 Episodic Results Test Name Value Interpretation Reference Range Facil ity Vital Signs Date Time Vital Sign Value Performing Clinician Facility 10-24-2023 10:03-0500 Body mass index (BMI) [Ratio] 35.88 kg/m2 Nina Tineo MD Work Phone: [facility] 10-24-2023 10:03-0500 Body weight 110.22 kg Nina Tineo MD Work Phone: [facility] 10-24-2023 10:03-0500 Diastolic blood pressure 58 mm[Hg] Nina Tineo MD Work Phone: [facility] 10-24-2023 10:03-0500 Heart rate 56 /min Nina Tineo MD Work Phone: [facility] 10-24-2023 10:03-0500 Systolic blood pressure 125 mm[Hg] Nina Tineo MD Work Phone: [facility] 07-17-2023 10:02-0400 Body height 175.3 cm Nina Tineo MD Work Phone: [facility] 07-17-2023 10:02-0400 Body mass index (BMI) [Ratio] 36.15 kg/m2 Nina Tineo MD Work Phone: [facility] 07-17-2023 10:02-0400 Body weight 111.04 kg Nina Tineo MD Work Phone: [facility] 07-17-2023 10:02-0400 Diastolic blood pressure 72 mm[Hg] Nina Tineo MD Work Phone: [facility] 07-17-2023 10:02-0400 Heart rate 63 /min Nina Tineo MD Work Phone: [facility] 07-17-2023 10:02-0400 Systolic blood pressure 121 mm[Hg] Nina Tineo MD Work Phone: [facility] 06-23-2023 11:34-0400 Body temperature 98.24 [degF] AIDEN FONTANEZ MD [facility] 06-23-2023 11:34-0400 Diastolic Blood Pressure Non-Invasive 72 1 AIDEN FONTANEZ MD [facility] 06-23-2023 11:34-0400 Heart rate 65 /min AIDEN FONTANEZ MD [facility] 06-23-2023 11:34-0400 Respiratory rate 18 /min AIDEN FONTANEZ MD [facility] 06-23-2023 11:34-0400 Systolic Blood Pressure Non-Invasive 137 1 AIDEN FONTANEZ MD [facility] 09-11-2017 06:38-0400 BMI (Body Mass Index) 34 kg/m2 Alicia Paulie [facility] Work Phone: 09-11-2017 06:38-0400 Body Temperature 96.8 [degF] Alicia Paulie [facility] Work Phone: 09-11-2017 06:38-0400 BP Diastolic 71 mm[Hg] Alicia Paulie [facility] Work Phone: 09-11-2017 06:38-0400 BP Systolic 128 mm[Hg] Alicia Paulie [facility] Work Phone: 09-11-2017 06:38-0400 Height 177.8 cm Alicia Paulie [facility] Work Phone: 09-11-2017 06:38-0400 Pulse (Heart Rate) 56 /min Alicia Apodaca [facility] Work Phone: 09-11-2017 06:38-0400 Respiratory Rate 18 /min Alicia Paulie [facility] Work Phone: 09-11-2017 06:38-0400 Weight 107.5 kg Alicia Paulie [facility] Work Phone: 12-05-2016 08:41-0500 Body Temperature 96.98 [degF] Alicia Paulie [facility] Work Phone: 12-05-2016 08:41-0500 BSA (Body Surface Area) 2.27 m2 Alicia Paulie [facility] Work Phone: 12-05-2016 08:41-0500 Height 177.8 cm Alicia Paulie [facility] Work Phone: 01-10-2017 08:41-0500 Weight 110.91 kg [facility] Work Phone: Encounters Encounter Date Encounter Type Care Provider Facility Start: 10-24-2023 End: 10-24-2023 ambulatory NINA TINEO [facility] Start: 10-24-2023 End: 10-24-2023 Office outpatient visit 15 minutes Nina Tineo MD Work Phone: [facility] Procedures Date Procedure Procedure Detail Performing Clinician Start: 09-20-2021 EMG REPORT Jairo Mccullough Marisela vyastristen DO Work Phone: Start: 09-05-2018 Cardiovascular stres s testing RUBEN SMALLSPKINS SQUEAK RATTLE AND LEAK REPAIRER - ROUTE RETURNER Plan of Treatment Date Care Activity Detail Author Start: 03-15-2026 DTaP/Tdap/Td vaccine (2 - Td or Tdap) DTaP/Tdap/Td vaccine (2 - Td or Tdap) [facility] Work Phone: Start: 03-15-2026 DTaP/Tdap/Td Vaccines (2 - Td or Tdap) DTaP/Tdap/Td Vaccines (2 - Td or Tdap) [facility] Start: 04-23-2024 End: 04-23-2024 Patient encounter procedure 04/23/2024 9:00 AM EDT Office Visit [facility] [address] [place] [address] Nina Tineo MD [address] [place] [id number] [facility] Start: 10-24-2023 End: 10-24-2023 Patient encounter procedure 10/24/2023 10:00 AM EST Office Visit [facility] [address] [place] [address] Nina Tineo MD [address] [place] [address] [facility] Start: 07-27-2023 COVID-19 Vaccine ( season) COVID-19 Vaccine ( season) [facility] Start: 07-27-2023 Influenza vaccination [facility] Start: 07-17-2023 End: 07-17-2023 Patient encounter procedure 07/17/2023 10:00 AM EDT Office Visit [facility] [address] [place] [id number] Nina Tineo MD [address] [place] [address] [facility] Start: 12-09-2021 COVID-19 Vaccine (4 - Booster for Moderna series) COVID-19 Vaccine (4 - Booster for Moderna series) [facility] Start: 12-09-2021 COVID-19 Vaccine (4 - Moderna series) COVID-19 Vaccine (4 - Moderna series) [facility] Start: 10-06-2021 End: 10-06-2021 Patient encounter procedure 10/06/2021 Office Visit Neurology Nina Tineo MD [address] [place] [address] [phone] [facility] [place] Start: 07-27-2021 Influenza vaccination Flu vaccine (#1) [facility] Work Phone: Start: 06-14-2021 Annual Wellness Visit (AWV) Annual Wellness Visit (AWV) [facility] Work Phone: Start: 03-12-2018 End: 03-12-2018 Appointment Appointment [facility] Work Phone: Start: 09-11-2017 End: 09-11-2017 DMB D[facility] Work Phone: Start: 09-11-2017 End: 09-11-2017 Follow Up Appt 6 months Follow Up Appt 6 months [facility] Work Phone: Start: 09-11-2017 End: 09-11-2017 Ldct for lung ca screen CT Ldct scan for lung cancer screening Medicare Pt [facility] Work Phone: Start: 09-11-2017 End: 09-11-2017 Pulmonary Function Test - complete Pulmonary Function Test - complete [facility] Work Phone: Start: 09-11-2017 End: 09-11-2017 Appointment Appointment [facility] Phone: Start: 03-13-2017 End: 03-13-2017 DMB D[facility] Work Phone: Start: 03-13-2017 End: 03-13-2017 Follow Up Appt 6 months Follow Up Appt 6 months [facility] Phone: Start: 03-13-2017 End: 03-13-2017 Ldct for lung ca screen CT Ldct scan for lung cancer screening Medicare Pt [facility] Phone: Start: 12-05-2016 End: 12-05-2016 DMB DMB [facility] Work Phone: Start: 12-05-2016 End: 12-05-2016 Follow Up Appt 3 months Follow Up Appt 3 months [facility] Phone: Start: 12-05-2016 End: 12-05-2016 Pulmonary Function Test - complete Pulmonary Function Test - complete [facility] Phone: Start: 12-05-2016 End: 12-05-2016 Pulmonary stress test/simple Pulmonary stress testing; simple (eg, 6-minute walk) [facility] Phone: Start: 11-12-2015 Shingles Vaccine (2 of 3) Shingles Vaccine (2 of 3) [employer] Phone: Start: 11-12-2015 Zoster Vaccines (2 of 3) Zoster Vaccines (2 of 3) [employer] Start: 2007 Pneumococcal 65+ years Vaccine (2 of 2 - PPSV23) Pneumococcal 65+ years Vaccine (2 of 2 - PPSV23) [employer] Phone: Start: 2002 Hepatitis B Vaccines (1 of 3 - Risk 3-dose series) Hepatitis B Vaccines (1 of 3 - Risk 3-dose series) [facility] Start: 2002 RSV Immunization aged 60 or older (1 - 1-dose 60+ series) RSV Immunization aged 60 or older (1 - 1-dose 60+ series) [facility] Start: 1992 Prostate specific antigen measurement PSA counseling [facility] Work Phone: Start: 1992 Zoster Vaccines (1 of 2) Zoster Vaccines (1 of 2) [facility] Start: 1961 DTaP/Tdap/Td Vaccines (1 - Tdap) DTaP/Tdap/Td Vaccines (1 - Tdap) [facility] Start: 1954 Depression Screening Depression Screening [facility] Start: 1952 Lipid panel Lipid screen [facility] Work Phone: Start: 1948 Pneumococcal Vaccine: 65+ Years (1 - PCV) Pneumococcal Vaccine: 65+ Years (1 - PCV) [facility] Start: 1942 COVID-19 Vaccine (#1) COVID-19 Vaccine (#1) [facility] Start: 1942 Hepatitis C screening Hepatitis C screen [facility] Work Phone: Start: 1942 Lipid panel Lipid Panel [facility] Start: 1942 Medicare Advantage Annual Wellness Visit (AWV) Medicare Advantage Annual Wellness Visit (AWV) [facility] EMG REPORT EMG REPORT Neuro logy 09/20/2021 12:[address] [facility] Work Phone: Patient Education Albuterol%20(I nhalation )%20(Aerosol%2C%20Aeros ol%20Powder%2C%20Suspen neel%2C%20Solution) [facility] Work Phone: Immunizations Immunization Date Immunization Notes Care Provider Fa sean 09-19-2022 pneumococcal polysaccharide vaccine, 23 valent; Translations: [Pneumovax 23] JORGE JONES APRN-ROUTE RETURNER [facility] 08-28-2022 influenza, high dose seasonal, preservative-free JORGE JONES SQUEAK RATTLE AND LEAK REPAIRER-ROUTE RETURNER [facility] 08-28-2022 influenza virus vacc ine, unspecified formulation Nina Tineo MD Work Phone: [facility] 10-14-2021 SARS-CoV-2 (COVID-19 ) mRNA-1273 vaccine JORGE JONES SQUEAK RATTLE AND LEAK REPAIRER-ROUTE RETURNER [facility] 09-24-2021 influenza virus vacc ine, unspecified formulation RUBEN ANGELA SQUEAK RATTLE AND LEAK REPAIRER - ROUTE RETURNER [facility] 02-17-2021 SARS-CoV-2 (COVID-19 ) mRNA-1273 vaccine RUBEN ANGELA SQUEAK RATTLE AND LEAK REPAIRER - ROUTE RETURNER [facility] 01-20-2021 SARS-CoV-2 (COVID-19 ) mRNA-1273 vaccine RUBEN ANGELA SQUEAK RATTLE AND LEAK REPAIRER - ROUTE RETURNER [facility] 07-15-2020 influenza virus vacc ine, unspecified formulation RUBNE ANGELA SQUEAK RATTLE AND LEAK REPAIRER - ROUTE RETURNER [facility] 07-17-2019 influenza virus vacc ine, unspecified formulation RUBEN ANGELA SQUEAK RATTLE AND LEAK REPAIRER - ROUTE RETURNER [facility] 08-18-2018 influenza virus vacc ine, unspecified formulation RUBEN ANGELA SQUEAK RATTLE AND LEAK REPAIRER - ROUTE RETURNER [facility] 08-07-2017 influenza virus vacc ine, unspecified formulation RUBEN ANGELA SQUEAK RATTLE AND LEAK REPAIRER - ROUTE RETURNER [facility] 08-17-2016 influenza virus vacc ine, unspecified formulation RUBEN ANGELA SQUEAK RATTLE AND LEAK REPAIRER - ROUTE RETURNER [facility] 03-15-2016 tetanus toxoid, redu issac diphtheria toxoid, and acellular pertussis vaccine, adsorbed RUBEN ANGELA SQUEAK RATTLE AND LEAK REPAIRER - ROUTE RETURNER [facility] 09-17-2015 zoster vaccine, live RUBEN ANGELA SQUEAK RATTLE AND LEAK REPAIRER - ROUTE RETURNER [facility] 08-11-2015 influenza virus vacc ine, unspecified formulation RUBEN ANGELA SQUEAK RATTLE AND LEAK REPAIRER - ROUTE RETURNER [facility] 05-21-2015 pneumococcal conjuga te vaccine, 13 valent RUBEN ANGELA SQUEAK RATTLE AND LEAK REPAIRER - ROUTE RETURNER [facility] 09-01-2014 influenza virus vacc ine, unspecified formulation RUBEN ANGELA SQUEAK RATTLE AND LEAK REPAIRER - ROUTE RETURNER [facility] 09-10-2012 influenza virus vacc ine, unspecified formulation RUBEN ANGELA SQUEAK RATTLE AND LEAK REPAIRER - ROUTE RETURNER [facility] Payers Date Payer Category Payer Medicare [employer] UHC AARP MEDICARE ADVANTAGE [id number] 2022-Present [phone] [address] [address] [place] [address] Medicare HMO [id number] 2020 Medicare [id number] 1942 Unknown [id number] 1942 Unknown [id number] 1942 Unknown [id number] 1942 Unknown [id number] 1942 Unknown [id number] 1942 Unknown [id number] 1942 Unknown [id number] 1942 Unknown [id number] [id number] Medicare [id number] Social History Date Type Detail Facility Start: 06-14-2021 End: 07-18-2021 Tobacco smoking status [facility] Former smoker [facility] Medical Equipment Procedure Code Equipment Code Equipment Origin al Text Equipment Identifier Dates See Instructions , Pt. test 2-3 times per day, # 150 EA, 12 Refill(s), Pharmacy: [facility], DM type 2, goal HbA1c < 7.5%, 177, cm, 12/19/21 9:10:00 EST, Height, 109.4, kg, 12/19/21 9:10:00 EST, Dosing Weight Start: 02-07-2022 See Instructions , Pt. test 2-3 times per day, # 150 EA, 12 Refill(s), Pharmacy: [facility], DM type 2, goal HbA1c < 7.5%, 177, cm, 12/19/21 9:10:00 EST, Height, 109.4, kg, 12/19/21 9:10:00 EST, Dosing Weight Start: 02-07-2022 See Instructions , Pt. test 2-3 times per day, # 150 EA, 12 Refill(s), Pharmacy: [facility], DM type 2, goal HbA1c < 7.5%, 177, cm, 12/19/21 9:10:00 EST, Height, 109.4, kg, 12/19/21 9:10:00 EST, Dosing Weight Start: 02-07-2022 See Instructions , Pt. test 2-3 times per day, # 150 EA, 12 Refill(s), Pharmacy: [facility], DM type 2, goal HbA1c < 7.5%, 177, cm, 12/19/21 9:10:00 EST, Height, 109.4, kg, 12/19/21 9:10:00 EST, Dosing Weight Start: 02-07-2022 See Instructions , Pt. test 2-3 times per day, # 150 EA, 12 Refill(s), Pharmacy: [facility], DM type 2, goal HbA1c < 7.5%, 177, cm, 12/19/21 9:10:00 EST, Height, 109.4, kg, 12/19/21 9:10:00 EST, Dosing Weight Start: 02-07-2022 See Instructions , Pt. test 2-3 times per day, # 150 EA, 12 Refill(s), Pharmacy: [facility], DM type 2, goal HbA1c < 7.5%, 177, cm, 12/19/21 9:10:00 EST, Height, 109.4, kg, 12/19/21 9:10:00 EST, Dosing Weight Start: 02-07-2022 See Instructions , Pt. test 2-3 times per day, # 150 EA, 12 Refill(s), Pharmacy: [place] [address], DM type 2, goal HbA1c < 7.5%, 177, cm, 12/19/21 9:10:00 EST, Height, 109.4, kg, 12/19/21 9:10:00 EST, Dosing Weight Start: 02-07-2022 Functional Status Date Assessment Result Facility 06-23-2023 Functional Status Identified as high risk, Fall ID band on [facility] Mental Status Date Assessment Result Facility 06-23-2023 Mental Status Orientation Oriented x 4 [facility] Clinical Notes 06-16-2022 to 10-24-2023 Nina Tineo MD - 10/24/2023 10:00 AM ESTTelephone Encounter - Maia Mobley MA - 09/24/2023 7:05 AM EDTTelephone Encounter - Maia Mobley MA - 09/24/2023 7:05 AM EDTLaboratoryLaboratory Note Date & Type Note Facility 10-24-2023 History of Present illness Narrative Images from the original note were not included. [facility] [address] [facility] [address] Dept: [phone] Dept Loc: [phone] Visit type: Established Patient Reason for Visit: Follow-up and Parkinson's Disease Assessment and Plan 1. Essential tremor - primidone (Mysoline) 250 MG tablet; Take 1 tablet (250 mg) by mouth 3 times daily., Starting Sun10/24/2023, Until Sun10/23/2024, Normal 2. Parkinson's disease - carbidopa-levodopa (Sinemet) 25-100 MG tablet; Take 1 tablet by mouth 2 times daily. With AM and supper doses, Starting Sun10/24/2023, Until Sun01/22/2024, Normal Subjective HPI: He denies falls. He reports that the tremors are worse. No dysphagia. No hallucinations. No constipation. He reports that he is having weakness in the left leg. He report that he did get improvement with PT He has difficulty getting into low setting cars because of trouble lifting it up. REVIEW OF SYSTEMS: Review of Systems Constitutional: Negative for appetite change, chills, diaphoresis, fever and unexpected weight change. HENT: Negative for dental problem and mouth sores. Eyes: Negative for discharge and itching. Respiratory: Negative for chest tightness. Cardiovascular: Negative for chest pain and leg swelling. Gastrointestinal: Negative for rectal pain and vomiting. Endocrine: Negative for polydipsia, polyphagia and polyuria. Genitourinary: Negative for decreased urine volume, flank pain and genital sores. Musculoskeletal: Negative for arthralgias. Skin: Negative for color change. Allergic/Immunologic: Negative for food allergies and immunocompromised state. Neurological: Positive for weakness and numbness. Hematological: Negative for adenopathy. Does not bruise/bleed easily. Psychiatric/Behavioral: Negative for agitation, behavioral problems, decreased concentration, sleep disturbance and suicidal ideas. No Known Allergies Current Outpatient Medications: Breztri Aerosphere 160-9-4.8 MCG/ACT aerosol, , Disp: , Rfl: DULoxetine (Cymbalta) [address] capsule, Take 60 mg by mouth in the morning and 60 mg in the evening., Disp: , Rfl: gabapentin (Neurontin) 800 MG tablet, TAKE 1 TABLET BY MOUTH 3 TIMES DAILY, Disp: 270 tablet, Rfl: 3 glimepiride (Amaryl) 4 MG tablet, Take 1 tablet by mouth daily., Disp: , Rfl: ipratropium (Atrovent) 0.02 % nebulizer solution, , Disp: , Rfl: omega-3 (Fish Oil) 1000 MG capsule, Take 1,000 mg by mouth daily., Disp: , Rfl: pioglitazone (Actos) 45 MG tablet, Take 1 tablet by mouth daily., Disp: , Rfl: primidone (Mysoline) 50 MG tablet, TAKE 3 TABLETS BY MOUTH 3 TIMES DAILY, Disp: 900 tablet, Rfl: 2 simvastatin (Zocor) 40 MG tablet, Take 40 mg by mouth Nightly., Disp: , Rfl: carbidopa-levodopa (Sinemet) 25-100 MG tablet, Take 1 tablet by mouth 2 times daily. With AM and supper doses, Disp: 180 tablet, Rfl: 3 carbidopa-levodopa CR (Sinemet CR) 50-200 MG ER tablet, TAKE 1 TABLET BY MOUTH 4 TIMES DAILY (Patient not taking: Reported on 10/24/2023), Disp: 360 tablet, Rfl: 3 ferrous sulfate 325 (65 Fe) MG tablet, Take 1 tablet by mouth daily., Disp: , Rfl: primidone (Mysoline) 250 MG tablet, Take 1 tablet (250 mg) by mouth 3 times daily., Disp: 90 tablet, Rfl: 2 Past Medical History: Diagnosis Date Bladder cancer (HCC) CAD (coronary artery disease) Cancer (CMS/HCC) (HCC) Parkinson disease Prostate cancer (HCC) Social History Tobacco Use Smoking status: Every Day Smokeless tobacco: Never Substance Use Topics Alcohol use: Yes Past Surgical History: Procedure Laterality Date CORONARY ARTERY BYPASS GRAFT Family History Problem Relation Name Age of Onset Stomach cancer Mother Heart attack Father Objective Vitals: BP 125/58 (BP Location: Right arm) Pulse 56 Wt 243 lb (110 kg) BMI 35.88 kg/m General Appearance: Patient is in no apparent distress. Head is normocephalic, atraumatic Cardiovascular: Regular rate and rhythm. No heart murmurs. No carotid bruit Neurologic: Mentation: Alert and oriented x 3 to person, [address] and time. Speech and Language: Speech and language normal Concentration and Attention: Concentration normal Memory: Memory grossly normal Fund of Knowledge: Fund of knowledge normal Cranial Nerves: II, III, IV, V, , VII, VIII, IX, X, XI, XII examined and were intact. Motor: Strength: Strength 5 out of 5 with normal tone in arms and hands.Left leg is noticeably stronger nearly 5/5 throughout Alternating Movements: Normal Cogwheel Rigidity: None Tone: Tone is normal Tremor / Involuntary Movements: Almost entirely rest and postural and torsional. Hardly any signs of the original kinetic vertical tremor he started with Deep Tendon Reflexes: 1 out of 4 symmetrical in all four limbs. Coordination: Normal coordination upper and lower extremities Gait and Station: Station is mildly abnormal. Gait is stooped, small steps, but pretty good, actually pivoting on turns. Data Reviewed and Summarized DIAGNOSTIC TESTING NERVE CONDUCTION TEST/EMG FACILITY: [facility] REFERRING PHYSICIAN: Nina Tineo JR, MD TEST #: [id number] TEST-NERVE CONDUCTION TEST/EMG: LEFT ARM: RIGHT ARM: LEFT LEG: X RIGHT LEG: X HISTORY: The patient presents with lower back pain, as well as weakness, numbness, and tingling in the legs bilaterally. NERVE CONDUCTION STUDIES: The left sural sensory nerve action potential was absent. The right sural sensory nerve action potential was absent. The left common peroneal to EDB compound muscle action potential was remarkable for a decreased amplitude and decreased conduction velocity. The right common peroneal to EDB compound muscle action potential was remarkable for a decreased amplitude and decreased conduction velocity. The left tibial to AH compound muscle action potential was remarkable for a decreased amplitude and decreased conduction velocity. The right tibial to AH compound muscle action potential was remarkable for a decreased amplitude and decreased conduction velocity. The left deep peroneal to tibialis anterior compound muscle action potential was unremarkable. The right deep peroneal to tibialis anterior compound muscle action potential was unremarkable. Concentric needle EMG was performed in the bilateral lower extremities. Lumbar paraspinals were note tested, as the patient has a history of back surgery. No increased insertional activity, fibrillation potentials, fasciculation potentials, or positive sharp waves were seen in any muscle tested. Motor unit action potentials demonstrated increased amplitude, duration and reduced recruitment in the bilateral tibialis anterior, bilateral medial gastrocnemius, bilateral vastus medialis, bilateral adductor lizbeth, bilateral short head of the biceps femoris, and bilateral tensor fasciae latae. IMPRESSION: This is an abnormal study. 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 There is also evidence of chronic, inactive bilateral L3, L4, L5, and S1 radiculopathies with no evidence of active ongoing denervation. There is no evidence of an active right- or left-sided lumbosacral radiculopathy on this study. CBC: No results found for: WBC , RBC , HGB , HCT , MCV , MCH , MCHC , RDW , PLT , MPV CMP: No results found for: NA , K , CL , CO2 , BUN , CREATININE , AGRATIO , LABGLOM , GLUCOSE , GLU , PROT , CALCIUM , BILITOT , ALKPHOS , AST , ALT BMP: No results found for: NA , K , CL , CO2 , BUN , CREATININE , CALCIUM , LABGLOM , GLUCOSE , GLU PT/INR: No results found for: PROTIME , INR PTT: No results found for: APTT , PTT [APTT} FLP: No results found for: CHLPL , TRIG , HDL , LDLCALC , LDLDIRECT TSH: No results found for: TSH VITAMIN B12: No results found for: [id number] No results found for: PHENYTOIN , PHENOBARB , VALPROATE , CBMZ No components found for: TOPIRA @RESULTINGLABINFO@ No results found for: LEVETIRACETA , FERRITIN , CRP , SWATI , ANCA No results found for: ODETTE , IMMUNOGLOBUL , OLIGOBANDS No results found for: [id number] , HEPCAB No results found for: CRP , ANATITER , ANCA FERRITIN: No results found for: FERRITIN ---- OUTSIDE IMAGING SCAN Ordered by an unspecified provider. IMPRESSION and PLAN: Diagnosis Plan 1. Essential tremor primidone (Mysoline) 250 MG tablet 2. Parkinson's disease carbidopa-levodopa (Sinemet) 25-100 MG tablet His essential tremor is the primary tremor today. Will go up on the primidone to 250 mg TID. His PD is controlled with the low dose of Sinemet. Will follow. NINA TINEO MD I spent 30 minutes caring for this patient today, reviewing labs, records, seeing the patient, documenting in the record and arranging for studies. documented in this encounter [facility] 09-24-2023 Telephone encounter Note Last ov- 07/17/23 Next ov- 10/24/23 [facility] 09-24-2023 Miscellaneous Notes Last ov- 07/17/23 Next ov10/24/23 documented in this encounter [facility] 08-10-2023 Telephone encounter Note Last ov- 07/17/23 Next ov10/24/23 [facility] 08-10-2023 Miscellaneous Notes Last ov- 07/17/23 Next ov10/24/23 documented in this encounter [facility] 07-24-2023 Telephone encounter Note Last ov- 07/17/23 Next ov10/24/23 [facility] 07-24-2023 Miscellaneous Notes Last ov- 07/17/23 Next ov10/24/23 documented in this encounter [facility] 07-17-2023 History of Present illness Narrative Images from the original note were not included. [facility] [address] [facility] [id number] Dept: [phone] Dept Loc: [phone] Visit type: Established Patient Reason for Visit: Follow-up Assessment and Plan 1. Parkinson's disease (HCC) 2. Lumbar polyradiculopathy 3. 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 Essential tremor Subjective HPI: He denies falls. He reports that he still has tremors but they are no worse than before. He is physically active but he was not able to make going to the [facility] work for him. No dysphagia. No hallucinations. No constipation. He reports that he is having weakness in the left leg. He has difficulty getting into cars because of trouble lifting it up. He reports that he has the same areas of weakness and sensory problems that he had in 2020 when we had him get an EMG/NCS. He just feels that the weakness is worse. The back pain is still the same, no worse. He can only go 25-40 yards before the legs give out. REVIEW OF SYSTEMS: Review of Systems Constitutional: Negative for appetite change, chills, diaphoresis, fever and unexpected weight change. HENT: Negative for dental problem and mouth sores. Eyes: Negative for discharge and itching. Respiratory: Negative for chest tightness. Cardiovascular: Negative for chest pain and leg swelling. Gastrointestinal: Negative for rectal pain and vomiting. Endocrine: Negative for polydipsia, polyphagia and polyuria. Genitourinary: Negative for decreased urine volume, flank pain and genital sores. Musculoskeletal: Negative for arthralgias. Skin: Negative for color change. Allergic/Immunologic: Negative for food allergies and immunocompromised state. Neurological: Positive for weakness and numbness. Hematological: Negative for adenopathy. Does not bruise/bleed easily. Psychiatric/Behavioral: Negative for agitation, behavioral problems, decreased concentration, sleep disturbance and suicidal ideas. No Known Allergies Current Outpatient Medications: carbidopa-levodopa CR (Sinemet CR) 50-200 MG ER tablet, TAKE 1 TABLET BY MOUTH 4 TIMES DAILY, Disp: 360 tablet, Rfl: 0 DULoxetine (Cymbalta) [address] capsule, Take 60 mg by mouth in the morning and 60 mg in the evening., Disp: , Rfl: ferrous sulfate 325 (65 Fe) MG tablet, Take 1 tablet by mouth daily., Disp: , Rfl: gabapentin (Neurontin) 800 MG tablet, TAKE 1 TABLET BY MOUTH 3 TIMES DAILY, Disp: 270 tablet, Rfl: 0 glimepiride (Amaryl) 4 MG tablet, Take 1 tablet by mouth daily., Disp: , Rfl: omega-3 (Fish Oil) 1000 MG capsule, Take 1,000 mg by mouth daily., Disp: , Rfl: pioglitazone (Actos) 45 MG tablet, Take 1 tablet by mouth daily., Disp: , Rfl: primidone (Mysoline) 250 MG tablet, TAKE 1 TABLET BY MOUTH 3 TIMES DAILY, Disp: 300 tablet, Rfl: 2 simvastatin (Zocor) 40 MG tablet, Take 40 mg by mouth Nightly., Disp: , Rfl: topiramate 50 MG tablet, Take 1 tablet by mouth 2 times daily., Disp: , Rfl: Past Medical History: Diagnosis Date Bladder cancer (HCC) CAD (coronary artery disease) Cancer (CMS/HCC) (HCC) Parkinson disease (HCC) Prostate cancer (HCC) Social History Tobacco Use Smoking status: Every Day Smokeless tobacco: Never Substance Use Topics Alcohol use: Yes Past Surgical History: Procedure Laterality Date CORONARY ARTERY BYPASS GRAFT Family History Problem Relation Name Age of Onset Stomach cancer Mother Heart attack Father Objective Vitals: BP 121/72 (BP Location: Left arm, Patient Position: Sitting, BP Cuff Size: Large adult) Pulse 63 Ht 5' 9 (1.753 m) Wt 244 lb 12.8 oz (111 kg) BMI 36.15 kg/m General Appearance: Patient is in no apparent distress. Head is normocephalic, atraumatic Cardiovascular: Regular rate and rhythm. No heart murmurs. No carotid bruit Neurologic: Mentation: Alert and oriented x 3 [address], [address] and time. Speech and Language: Speech and language normal Concentration and Attention: Concentration normal Memory: Memory normal Fund of Knowledge: Fund of knowledge normal Cranial Nerves: II, III, IV, V, , VII, VIII, IX, X, XI, XII examined and were intact. Motor: Strength: Strength 5 out of 5 with normal tone in arms and hands. 3/5 in hips and knees but 5/5 in ankles Alternating Movements: Normal Cogwheel Rigidity: None Tone: Tone is normal Tremor / Involuntary Movements: Almost entirely rest and postural and torsional. Hardly any signs of the original kinetic vertical tremor he started with Deep Tendon Reflexes: 1 out of 4 symmetrical in all four limbs. Sensory: Normal sensation upper and lower extremities Coordination: Normal coordination upper and lower extremities Gait and Station: Station is mildly abnormal. Gait is stooped, small steps, but pretty good, about 3 step, turns. Data Reviewed and Summarized DIAGNOSTIC TESTING NERVE CONDUCTION TEST/EMG FACILITY: [facility] REFERRING PHYSICIAN: Nina Tineo JR, MD TEST #: [id number] TEST-NERVE CONDUCTION TEST/EMG: LEFT ARM: RIGHT ARM: LEFT LEG: X RIGHT LEG: X HISTORY: The patient presents with lower back pain, as well as weakness, numbness, and tingling in the legs bilaterally. NERVE CONDUCTION STUDIES: The left sural sensory nerve action potential was absent. The right sural sensory nerve action potential was absent. The left common peroneal to EDB compound muscle action potential was remarkable for a decreased amplitude and decreased conduction velocity. The right common peroneal to EDB compound muscle action potential was remarkable for a decreased amplitude and decreased conduction velocity. The left tibial to AH compound muscle action potential was remarkable for a decreased amplitude and decreased conduction velocity. The right tibial to AH compound muscle action potential was remarkable for a decreased amplitude and decreased conduction velocity. The left deep peroneal to tibialis anterior compound muscle action potential was unremarkable. The right deep peroneal to tibialis anterior compound muscle action potential was unremarkable. Concentric needle EMG was performed in the bilateral lower extremities. Lumbar paraspinals were note tested, as the patient has a history of back surgery. No increased insertional activity, fibrillation potentials, fasciculation potentials, or positive sharp waves were seen in any muscle tested. Motor unit action potentials demonstrated increased amplitude, duration and reduced recruitment in the bilateral tibialis anterior, bilateral medial gastrocnemius, bilateral vastus medialis, bilateral adductor lizbeth, bilateral short head of the biceps femoris, and bilateral tensor fasciae latae. IMPRESSION: This is an abnormal study. 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 There is also evidence of chronic, inactive bilateral L3, L4, L5, and S1 radiculopathies with no evidence of active ongoing denervation. There is no evidence of an active right- or left-sided lumbosacral radiculopathy on this study. CBC: No results found for: WBC, RBC, HGB, HCT, MCV, MCH, MCHC, RDW, PLT, MPV CMP: No results found for: NA, K, CL, CO2, BUN, CREATININE, AGRATIO, LABGLOM, GLUCOSE, GLU, PROT, CALCIUM, BILITOT, ALKPHOS, AST, ALT BMP: No results found for: NA, K, CL, CO2, BUN, CREATININE, CALCIUM, LABGLOM, GLUCOSE, GLU PT/INR: No results found for: PROTIME, INR PTT: No results found for: APTT, PTT[APTT} FLP: No results found for: CHLPL, TRIG, HDL, LDLCALC, LDLDIRECT TSH: No results found for: TSH VITAMIN B12: No results found for: [id number] No results found for: PHENYTOIN, PHENOBARB, VALPROATE, CBMZ No components found for: TOPIRA @RESULTINGLABINFO@ No results found for: LEVETIRACETA, FERRITIN, CRP, SWATI, ANCA No results found for: ODETTE, IMMUNOGLOBUL, OLIGOBANDS No results found for: [id number], HEPCAB No results found for: CRP, ANATITER, ANCA, ANCA FERRITIN: No results found for: FERRITIN ---- OUTSIDE IMAGING SCAN Ordered by an unspecified provider. IMPRESSION and PLAN: Diagnosis Plan 1. Parkinson's disease (HCC) 2. Lumbar polyradiculopathy 3. 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 Essential tremor He started with essential tremor years ago, but now he has that fully suppressed with the meds.It would be appropriate to reduce the primidone and increase carb-levo to 25/100 po BID + 50/200 four times a day. Primidone is to be lowered 150 mg three times a day. PT for his lower back issues. NINA TINEO MD I spent 30 minutes caring for this patient today, reviewing labs, records, seeing the patient, documenting in the record and arranging for studies. documented in this encounter [facility] 07-15-2023 Note . MICRO - Microbiology PROCEDURE: Culture Wound Aerobic with Gram Stain [*1] SOURCE: Abscess BODY SITE: Face COLLECTED DATE/TIME: 07/13/2023 17:19 EDT RECEIVED DATE/TIME: 07/13/2023 18:45 EDT START DATE/TIME: 07/13/2023 18:45 EDT FREE TEXT SOURCE: FINAL REPORTS Final Report [] Verified Date/Time/Personnel: 07/15/2023 09:25 EDT Few normal skin wendie present. Sensitivity testing not indicated. PRELIMINARY REPORTS Preliminary Report [] Verified Date/Time/Personnel: 07/14/2023 12:59 EDT Culture results pending. STAINS GS [] Verified Date/Time/Personnel: 07/13/2023 18:55 EDT No organisms seen. Performing Locations *1: This test was performed at: [address], [facility] , [facility] ([place]) 06-23-2023 Hospital Discharge instructions Patient Education 06/23/2023 12:32:53 Diabetes with High Blood Sugar Diabetes with High Blood Sugar You have been treated for high blood sugar (hyperglycemia). This may be because of an infection or other illness. Or it may be from eating too many sweets or starches. Or it may be from not taking enough insulin or other diabetes medicine. Home care Check your blood sugar level at least 2 times a day. Write it down the results. Do this before breakfast and before dinner. If you take insulin, also write down your routine insulin dose. Note any other doses you needed based on your sliding scale or as advised by your healthcare provider. Do this for the next 3 to 5 days. High blood sugar may cause symptoms that you can learn to spot. These include: Peeing often Thirst Headache Breath that smells fruity Nausea or vomiting Belly pain If you have symptoms of high blood sugar, use a blood or urine test to find out what your blood sugar level is. If it is above your usual range, use the sliding scale regular insulin dose from your healthcare provider. Call your provider for advice if you were not given a range for your insulin dose. If your blood sugar is over 240 mg/dL, check your urine for ketones. Follow-up care Follow up with your healthcare provider, or as advised. You may need to meet with your provider in the next week. You will likely look at your blood sugar records together. You may need to change your dose of insulin or other diabetes medicine. When to seek medical advice Call your healthcare provider right away if these occur: Symptoms of high blood sugar that don't get better with the treatment your provider advised. This is especially true if you also have ketones in your urine. Blood sugar over 300 mg/dl. If you can t reach your healthcare provider, go to a hospital emergency room or urgent care center. Call 911 Call 911 if you have any of the following: Confusion Dizziness, lightheadedness, or loss of consciousness Shortness of breath Chest pain Weakness of an arm, leg, or one side of the face Sudden trouble with speech or vision [id number] [employer]. [address] [place] [address]. All rights reserved. This information is not intended as a substitute for professional medical care. Always follow your healthcare professional's instructions. Follow Up Care 06/23/2023 11:31:55 With:RUBEN ANGELA APRN, CNP Address: [address] [place] [address]- When:2-4 days Comments:May add 1/2 tab of your amaryl in the evening [facility] 06-23-2023 Note Discharge Instructions Thank you for allowing [facility] to assist you with your healthcare needs. The following is important discharge information regarding your hospital visit. Diagnosis from Today's Visit Hyperglycemia Hyperglycemia What to Do Next Instructions from Your Care Team No qualifying data available. Post Acute Orders No qualifying data available. You Need to Schedule the Following Appointments Follow Up with RUBEN ANGELA APRN, CNP When Within 2-4 days Why: May add 1/2 tab of your amaryl in the evening Where: [address], [place] [id number]- Allergies NKA Medications Please ask your primary doctor or pharmacist before taking any other medication not listed, including over the counter drugs, herbal medications, vitamins and or supplements as they may interact with your home medications. What How Much When Why Instructions Last Dose Unchanged acetaminophen-hydrocodone ([place] 325- 5 mg oral tablet) 1 tab(s) by mouth Two (2) times a day Bladder cancer Medication management contract signed Duration: 30 Days PRN pain Fill Date: 2022 Unchanged acetaminophen-hydrocodone ([place] 325- 5 mg oral tablet) 1 tab(s) by mouth Two (2) times a day Chronic Back Pain, without current exacerbation Bladder cancer Duration: 30 Days PRN pain Fill Date: 2022 Unchanged acetaminophen-hydrocodone ([place] 325- 5 mg oral tablet) 1 tab(s) by mouth Two (2) times a day Chronic Back Pain, without current exacerbation Bladder cancer Duration: 30 Days PRN pain Fill Date: 2022 Unchanged budesonide (budesonide 0.5 mg/ 2 mL inhalation suspension) 2 Milliliter by inhalation Two (2) times a day Duration: 14 Days Unchanged budesonide-formoterol (Symbicort 160 mcg-4.5 mcg/ inh Inhaler) 2 puff(s) by inhalation Two (2) times a day Unchanged carbidopa-levodopa (carbidopa-levodopa 25 mg-250 mg oral tablet) 1 tab(s) by mouth Four (4) times a day Unchanged cholecalciferol (cholecalciferol 1250 mcg (50,000 intl units) oral capsule) 1 cap by mouth Once a month Vitamin D deficiency Duration: 90 Days Unchanged DME (Alcohol Swabs) See instructions DM type 2, goal HbA1c < 7.5% for testing daily and PRN Unchanged DME (Blood Glucose Test Machine) See instructions DM type 2, goal HbA1c < 7.5% For testing daily Unchanged DME (Blood Glucose Test Strips) See instructions DM type 2, goal HbA1c < 7.5% Pt. test 2-3 times per day Unchanged DULoxetine (DULoxetine 60 mg oral delayed release capsule) 2 cap by mouth Once a day Duration: 90 Days Unchanged fenofibrate (fenofibrate 160 mg oral tablet) 1 tab(s) by mouth Once a day Hyperlipidemia LDL goal <100 Duration: 90 Days Unchanged gabapentin (gabapentin 800 mg oral tablet) 1 tab(s) by mouth Three (3) times a day Unchanged glimepiride (Amaryl 4 mg oral tablet) 1 tab(s) by mouth Once a day with a meal DM type 2, goal HbA1c < 7.5% Duration: 90 Days Unchanged ipratropium (ipratropium 500 mcg/ 2.5 mL inhalation solution) 2.5 Milliliter by inhalation Two (2) times a day COPD with acute exacerbation Acute bronchitis Duration: 14 Days Unchanged metoprolol (Metoprolol Succinate ER 25 mg oral TABLET extended release) 1 tab(s) by mouth Once a day DO NOT CRUSH OR CHEW Unchanged omega-3 polyunsaturated fatty acids (Fish Oil) by mouth Unchanged pioglitazone (Actos 45 mg oral tablet) 1 tab(s) by mouth Every day DM type 2, goal HbA1c < 7.5% Duration: 90 Days Unchanged primidone 250 Milligram by mouth Three (3) times a day Unchanged simvastatin (simvastatin 40 mg oral tablet) 1 tab(s) by mouth Every day Hyperlipidemia LDL goal <100 Duration: 90 Days Unchanged topiramate (topiramate 50 mg oral tablet) 1 tab(s) Two (2) times a day Please take this list to your next doctor s visit. Bring all medications you take, including over the counter medications, herbals and other supplements with you to your doctor s visit. Patients and families are reminded to discard old lists and to update any records with all medication providers or retail pharmacies. Education Materials Diabetes with High Blood Sugar You have been treated for high blood sugar (hyperglycemia). This may be because of an infection or other illness. Or it may be from eating too many sweets or starches. Or it may be from not taking enough insulin or other diabetes medicine. Home care Check your blood sugar level at least 2 times a day. Write it down the results. Do this before breakfast and before dinner. If you take insulin, also write down your routine insulin dose. Note any other doses you needed based on your sliding scale or as advised by your healthcare provider. Do this for the next 3 to 5 days. High blood sugar may cause symptoms that you can learn to spot. These include: Peeing often Thirst Headache Breath that smells fruity Nausea or vomiting Belly pain If you have symptoms of high blood sugar, use a blood or urine test to find out what your blood sugar level is. If it is above your usual range, use the sliding scale regular insulin dose from your healthcare provider. Call your provider for advice if you were not given a range for your insulin dose. If your blood sugar is over 240 mg/dL, check your urine for ketones. Follow-up care Follow up with your healthcare provider, or as advised. You may need to meet with your provider in the next week. You will likely look at your blood sugar records together. You may need to change your dose of insulin or other diabetes medicine. When to seek medical advice Call your healthcare provider right away if these occur: Symptoms of high blood sugar that don't get better with the treatment your provider advised. This is especially true if you also have ketones in your urine. Blood sugar over 300 mg/dl. If you can t reach your healthcare provider, go to a hospital emergency room or urgent care center. Call 911 Call 911 if you have any of the following: Confusion Dizziness, lightheadedness, or loss of consciousness Shortness of breath Chest pain Weakness of an arm, leg, or one side of the face Sudden trouble with speech or vision [phone] [employer]. [address] [place] [address]. All rights reserved. This information is not intended as a substitute for professional medical care. Always follow your healthcare professional's instructions. Additional Information VACCINATE! IT SAVES LIVES! Members of the community who have not yet received the COVID-19 vaccine and would like to receive it can visit one of [facility] vaccine clinics. There are many vaccine clinic locations within the [facility] [address]. For locations and available times, please visit [email or web address] It is important to note that some COVID mobile vaccine clinics are held outdoors and may be canceled in rainy or stormy conditions. To learn more about pediatric vaccinations (ages 5-11), we invite you to visit the [facility] webpage. [email or web address] To learn more about the COVID-19 vaccine, we invite you to visit the CDC website for a list of frequently asked questions. https://www.cdc.gov/coronavirus/ 19-ncov/vaccines/faq.html [email or web address] Patient Portal Access Instructions: Stay connected with your healthcare team and access your personal medical information anytime with the [email or web address] Patient Portal. If you would like a full copy of your medical records please contact the [facility] Medical Records Department Sunday through Sunday between 8a.m. and 4:30p.m. Please follow the directions below to access the portal: 1.Access the email account you provided upon registration to the [facility].2.Look for an invitation email from [facility].3.Open the email and access the invitation link: Accept Invitation to [facility].Fill in the required [employer]ner[employer] to create your account. Sign into [email or web address] with your username and password that you created in the above steps to stay up to date. You can then view a summary of results, a summary of your visits, and the ability to download your summaries to your computer or send the information securely to a physician. Remember that your healthcare information is confidential, so carefully consider who you will allow to register on the [facility] Patient Portal for access to your information. You can also access the [facility] Patient Portal on the [employer]. Simply click on Health Records under Health Data and then click on the [employer] logo. HOW TO SAFELY DISPOSE OF PRESCRIPTION MEDICATIONS Please use one of the following methods to safely dispose of your unused medications. 1.Use a drug disposal kit: the drug disposal pouch allows you to safely discard your old and unused drugs. Ask your nurse to give you one when you are discharged.2.Visit a local take-back location: Many local pharmacies and police departments have programs that collect old and unwanted prescription drugs. Call your local pharmacy or go to http://[employer]els/5I1Wy8t to find one close to you.3.Make use of household items: Use cat litter or old coffee grounds to dispose medications if other options are not available. Mix your drugs with these household products, seal them in an airtight container and throw it into the garbage. Call [facility]: [phone] to be sure your drugs can be disposed of in this way. Some medicines may require a different approach.4.Never flush your medications down the toilet. IF YOU HAVE BEEN PRESCRIBED AN OPIOIDS FOR PAIN If you have been prescribed an opioid (such as hydrocodone, oxycodone or morphine), it is critical to understand the possible side effects and risks of opioid pain medications. Even when taken as directed, opioids can have several side effects including: Tolerance, meaning you might need to take more of a medication for the same pain relief. Nausea, vomiting and/or constipation. Sleepiness, dizziness, dry mouth, confusion, depression or itching. Physical dependence, meaning you have withdrawal symptoms when a medication is stopped ? this can develop within a few days. KNOW YOUR RESPONSIBILITIES It is important to know exactly how much and how often to take the opioid pain medications you are prescribed. Never take opioids in higher amounts or more often than prescribed. Do not combine opioids with alcohol or other drugs that cause drowsiness, such as benzodiazepines, also known as benzos, including diazepam and alprazolam, muscle relaxants or sleep aids. Never sell or share prescription opioids. This is illegal. Store opioids in a secure place and out of reach of others (including children, family, friends and visitors). The last page(s) of this document has been signed and retained as a CHART COPY Signatures Patient Education Materials Diabetes with High Blood Sugar Medication Leaflets My discharge plan and instructions have been reviewed and explained to me and ICOLT IVAN R understand my current condition and have read and understand these discharge instructions. I have received a written copy of the plan/instructions. If I have questions, I am aware that I should contact my doctor. Patient/Corporate Compliance Director Signature: Date/Time: Relationship to Patient: ___ Witness Name/Signature: Date/Time: [facility] 05-17-2023 Telephone encounter Note Last ov- 07/12/22 Next 07/17/23 [facility] 05-17-2023 Miscellaneous Notes Last ov- 07/12/22 Next ov07/17/23 documented in this encounter [facility] 05-14-2023 Telephone encounter Note Last ov- 07/12/22 Next ov- 07/17/23 [facility] 05-14-2023 Miscellaneous Notes Last ov- 07/12/22 Next ov07/17/23 documented in this encounter [facility] 02-07-2023 Note Lexiscan nuclear stress test Patient was stressed according to Lexiscan protocol. Resting heart rate [57] bpm trudy to maximum heart rate of [62] bpm. Resting blood pressure of [129/73] mmHg trudy to maximum blood pressure of [124/56] mmHg. The test was stopped due to protocol completed. Patient complains of [none]. Symptoms resolved and patient proceeded to imaging part. Baseline EKG shows normal sinus rhythm. During the stress test no ischemic ST depressions were noted no arrhythmia was noted. Impression: Patient had negative for ischemia EKG part of Lexiscan nuclear stress test, imaging part will be dictated in separate report Digitally Signed by SONYA BECERRIL MD on 02/07/2023 08:31 AM [facility] 06-16-2022 Note ORIGINAL EXAMINATION: 4 XRAY VIEWS OF THE RIGHT RIBS06/05/2022 2:31 pm RIBS RIGHT TECHNIQUE: AP and oblique COMPARISON: Chest radiograph dated 12/03/2018 HISTORY: Pain in right ribs for 3 days. FINDINGS/IMPRESSION: No obvious rib fractures. No visible pneumothorax or pleural effusion. No focal consolidation. Bilateral nipple shadow. Postsurgical changes of the sternum. Chemotherapy port present in the right anterior chest wall. I have personally reviewed the images of this examination and agree with the resident's findings and interpretations. Interpreted by: Scooter Lieberman DO Preliminary Report By: Torrey Raymundo Electronically signed By Scooter Lieberman DO Dictated Date: 06/16/2022 2:31:43 PM Prelim Date: 06/16/2022 5:29:02 PM Sign Date: 06/16/2022 5:29:02 PM Ordering Provider: RUBEN VALERIY [facility] 06-16-2022 Note ORIGINAL EXAMINATION: 4 XRAY VIEWS OF THE RIGHT RIBS06/05/2022 2:31 pm RIBS RIGHT TECHNIQUE: AP and oblique COMPARISON: Chest radiograph dated 12/03/2018 HISTORY: Pain in right ribs for 3 days. FINDINGS/IMPRESSION: No obvious rib fractures. No visible pneumothorax or pleural effusion. No focal consolidation. Bilateral nipple shadow. Postsurgical changes of the sternum. Chemotherapy port present in the right anterior chest wall. I have personally reviewed the images of this examination and agree with the resident's findings and interpretations. Interpreted by: Scooter Lieberman DO Preliminary Report By: Torrey Raymundo Electronically signed By Scooter Lieberman DO Dictated Date: 06/16/2022 2:31:43 PM Prelim Date: 06/16/2022 5:29:02 PM Sign Date: 06/16/2022 5:29:02 PM Ordering Provider: RUBEN SMALLSPKINS [facility] Evaluation + Plan note Future Appointments Appointment Date:06/27/2022 10:30:00 AM Scheduled Provider:MANISH MESA Location:[facility] Appointment Type:CV OV Appointment Date:08/28/2022 09:40:00 AM Scheduled Provider:RUBEN ANGELA APRN - YAO Location:[facility] Appointment Type:PC OV Follow Up Appointment Date:11/30/2022 09:40:00 AM Scheduled Provider:RUBEN ANGELA APRN, CNP Location:[facility] Appointment Type:PC OV Follow Up Future Scheduled TestsVitamin B12 Level 11/22/22A1C Hemoglobin 08/23/22A1C Hemoglobin 11/22/22Complete Blood Count 11/22/22Lipid Profile 11/22/22Microalbumin Level Urine 11/22/22Complete Metabolic Panel 11/22/22 [facility] Evaluation + Plan note Future Appointments Appointment Date:12/01/2022 01:00:00 PM Scheduled Provider:RUBEN ANGELA APRN, CNP Location:[facility] Appointment Type:PC OV Appointment Date:12/11/2022 10:40:00 AM Scheduled Provider:RUBEN ANGELA APRN, CNP Location:[facility] Appointment Type:PC OV Follow Up Appointment Date:12/19/2022 09:00:00 AM Scheduled Provider:RUBEN ANGELA APRN, CNP Location:[facility] Appointment Type:PC OV Controlled Medication Appointment Date:01/16/2023 10:15:00 AM Scheduled Provider:MANISH MESA Location:[facility] Appointment Type:CV OV Future Scheduled TestsVitamin B12 Level 11/22/22A1C Hemoglobin 08/23/22A1C Hemoglobin 11/22/22Complete Blood Count 11/22/22Lipid Profile 11/22/22Microalbumin Level Urine 11/22/22Complete Metabolic Panel 11/22/22 [facility] Evaluation + Plan note Future Appointments Appointment Date:03/19/2023 09:20:00 AM Scheduled Provider:RUBEN ANGELA APRN - YAO Location:[facility] Appointment Type:PC OV Controlled Medication Appointment Date:06/11/2023 09:20:00 AM Scheduled Provider:RUBEN ANGELA APRN - YAO Location:[facility] Appointment Type:PC OV Follow Up Appointment Date:08/15/2023 09:15:00 AM Scheduled Provider:MANISH MEAS Location:[facility] Appointment Type:CV OV Future Scheduled TestsRenin, Plasma 06/10/23A1C Hemoglobin 06/10/23Complete Blood Count 06/10/23Lipid Profile 06/10/23Microalbumin Level Urine 06/10/23Microalbumin Level Urine 11/22/22PTH, Intact 06/10/23Vitamin D Level 06/10/23Complete Metabolic Panel 06/10/23 [facility] Evaluation + Plan note Future Appointments Appointment Date:08/15/2023 09:15:00 AM Scheduled Provider:MANISH MESA Location:[facility] Appointment Type:CV OV Appointment Date:09/04/2023 09:20:00 AM Scheduled Provider:RUBEN ANGELA APRN, CNP Location:[facility] Appointment Type:PC OV Controlled Medication Appointment Date:12/17/2023 07:20:00 AM Scheduled Provider:RUBEN ANGELA APRN, CNP Location:[facility] Appointment Type:PC OV Follow Up Future Scheduled TestsRenin, Plasma 12/12/23Ferritin 12/12/23A1C Hemoglobin 12/12/23Complete Blood Count 12/12/23Complete Blood Count 03/28/23Lipid Profile 12/12/23Albumin/Creatinine Ratio, Random Urine 12/12/23Microalbumin Level Urine 06/10/23Microalbumin Level Urine 11/22/22PTH, Intact 12/12/23Vitamin D Level 12/12/23Complete Metabolic Panel 12/12/23TIBC 12/12/23XR Chest 2 Views (PA & Lateral) 03/28/23 [facility] Essential [facility] Diagnosis Essential tremor- Primary Parkinson's disease Paralysis agitans [facility] N[facility] No data available for this section [facility] Hospital Discharge instructions No data available for this section [facility] Progress note No data available for this section [facility] Summary Purpose Family History No Family History Records FoundNo Family History Records Found No data available for this section No data available for this section No Family History Records FoundNo Family History Records Found Advance Directives No Advanced Directives Records FoundNo Advanced Directives Records FoundNo Advanced Directives Records FoundNo Advanced Directives Records Found Reason for Referral Specialty Diagnoses / Procedures Referred By Stanislav whitney Referred To Contact Physical Therapy Diagnoses Parkinson's disease (HCC) Lumbar polyradiculopathy Spinal stenosis, lumbar region with neurogenic claudication Nina Tineo MD [address] [place] [address] Referral ID Status Reason Start Date Expiration Date Visits Requested Visits Authorized [id number] Pending Review Eval and Treat 07/17/2023 01/13/2024 99 99 Scheduling Instructions [phone] [facility] [address] [address] 2 times per week for 8 weeks Dx: Parkinson's and lumbar spinal stenosis Balance assesment and rehab and lower back rehab Additional Source Comments (unrecognized sect ion and content) No Status Records FoundNo Status Records FoundNo Status Records FoundNo Status Records Found INFORMATION SOURCE (unrecogn ized section and content) DATE CREATED AUTHOR AUTHOR'S ORGANIZ ATION 05/28/2018 [facility] DATE CREATED AUTHOR AUTHOR'S ORGANIZ ATION 09/04/2023 [facility] DATE CREATED AUTHOR AUTHOR'S ORGANIZ ATION 10/26/2023 [facility] Care Team (unrecognized sect ion and content) Care Team Personnel Name: RUBEN ANGELA APRN - YAO Position: P4 Advanced Practice Nurse Med Service: Employed Provider Member Role: Primary Care Physician Address: Address: [address] [place] [address]- Care Team Related Persons Name: GENE BROWN Name: CINDY WILKINS Name: YULISSA GREGORY Address: Home [address] [place], [place] [phone] [place] Care Team Personnel Name: RUBEN ANGELA APRN - [employer]OUTE [employer] Position: P4 Advanced Practice Nurse Member Role: Primary Care Physician Address: Address: [address] [place] [address] Care Team Related Persons Name: GENE BROWN Name: CINDY WILKINS Name: YULISSA GREGORY Address: Home [address] [place], [place] [phone] Care Team Personnel Name: RUBEN ANGELA SQUE[employer] REPAIRER - [employer]NER Position: P4 Advanced Practice Nurse Member Role: Primary Care Physician Address: Address: [address] [place] [address]- Care Team Related Persons Name: GENE BROWN Name: CINDY WILKINS Name: YULISSA GREGORY Address: [address] [place], [place] [id number] Patient Care team informatio n (unrecognized section and content) Industrial Cook Relationship Specialty Start Date End Date Ruben Angela [address] [employer] [facility] [place], [place] [id number] PCP - General 10/06/21 Industrial Cook Relationship Specialty Start Date End Date Ruben Angela [address] [employer] [facility] [place], [place] [phone] PCP - General 10/06/21 Industrial Cook Relationship Specialty Start Date End Date Ruben Angela [address] [facility] [place], [place] [phone] PCP - General 10/06/21 Industrial Cook Relationship Specialty Start Date End Date Ruben Angela [address] [facility] [place], [place] [id number] PCP - General 10/06/21 Industrial Cook Relationship Specialty Start Date End Date Ruben Angela [address] [facility] [place], [place] [phone] PCP - General 10/06/21 Reason for Visit (unrecogniz ed section and content) Reason Comments Follow-up Reason Comments Follow-up Parkinson's Disease FOR RECORDS PERTAINING TO PATIENTS WHO ARE OR HAVE BEEN ENROLLED IN A CHEMICAL DEPENDENCY/SUBSTANCEABUSE PROGRAM, SOME INFORMATION MAY BE OMITTED. This clinical summary was aggregated from multiple sources. Caution should be exercised in using it in the provision of clinical care. This summary normalizes information from multiple sources, and as a consequence, information in this document may materially change the coding, format and clinical context of patient data. In addition, data may be omitted in some cases. CLINICAL DECISIONS SHOULD BE BASED ON THE PRIMARY CLINICAL RECORDS. [facility] [employer] [facility]. provides no warranty or guarantee of the accuracy or completeness of information in this document.
[2023-12-07 10:25] LABS: Hematocrit 41.8 % (40-54); Mean Corp Hgb Conc 31.1 g/dL (32-36); Mean Corpuscular Hgb 31.7 pg (27.0-32.0); Mean Platelet Vol. 9.5 fl (6.2-12.0); Platelet Count 191 K/mm3 (150-450); RBC Distribution Width CV 13.8 % (11.6-14.6); RBC Distribution Width SD 52.3 fl (35.1-43.9)
[2023-12-07 10:40] LABS: ALB/GLOB Ratio 0.9 RATIO (0.9-2.4); AST(SGOT) 15 U/L (15-37); Alanine Aminotransfer ALT/SGPT 21 U/L (16-61); Albumin, Serum 3.6 g/dL (3.2-5.0); Alkaline Phosphatase 58 U/L (45-117); Anion Gap 5 (5-15); BUN 27 mg/dL (7-18); BUN/Creat Ratio 20.3 RATIO (10-20); Calcium,Total 9.1 mg/dL (8.5-10.1); Chloride 106 mmol/L (98-107); Cholesterol 159 mg/dL (200); Creatinine, Serum 1.33 mg/dL (0.70-1.30); EST Glomerular Filtration Rate 55 mL/min (>60); Est Glom Filt Rate - Afr Amer 66 mL/min (>60); Ferritin 198 ng/mL (26-388); Glucose 168 mg/dL (74-106); High Density Lipoprotein 53 mg/dL; Iron Binding Capacity,Total 316 ug/dL (250-450); Potassium 5.1 mmol/L (3.5-5.1); Protein, Total 7.6 g/dL (6.4-8.2); Sodium Level 138 mmol/L (136-145); Triglycerides 152 mg/dL; Very Low Density Lipoprotein 30 mg/dL (5-40)
[2023-12-07 10:41] LABS: Vitamin D,25 Hydroxy 16.6 ng/mL
[2023-12-07 10:43] LABS: PTHIN 46.2 pg/mL (18.4-80.1)
[2023-12-07 11:07] LABS: Hemoglobin A1c 7.2 % (3.8-5.6)
[2023-12-13 22:06] LABS: Renin, Plasma 1.433 ng/mL/hr (0.167-5.380)
== END | disposition home or self-care (01) ==
LOC: PAVLAB 09:27
PROVIDERS: PCP Nurse Practitioner Family; Referring Provider Nurse Practitioner Family; Visit Provider Nurse Practitioner Family
DX: I12.9 Hypertensive chronic kidney disease with stage 1 through stage 4 chronic kidney disease, or unspecified chronic kidney disease (principal); E11.22 Type 2 diabetes mellitus with diabetic chronic kidney disease; N18.9 Chronic kidney disease, unspecified; E78.5 Hyperlipidemia, unspecified
CPT/HCPCS: 36415; 80053; 80061; 82043; 82306; 82570; 82728; 83036; 83550; 83970; 84244; 85027

== ENCOUNTER → 2024-02-04 | Outpatient (CLI) | payer MEDICARE, SELFPAY ==
--- NOTE | 2024-02-04 08:55 | RAD_ITS ---
EXAM: XR LEFT HIP WITH PELVIS WHEN PERFORMED, 2 OR 3 VIEWS CLINICAL INDICATION: CHRONIC LEFT HIP PAIN TECHNIQUE: Two or three views of the left hip with pelvis when performed. COMPARISON: No relevant prior studies available. FINDINGS: BONES/JOINTS: Degenerative changes of the pelvis and spine. Enthesopathy along the iliac crests, lesser and greater trochanters, and the ischial tuberosities bilaterally. Sacroiliac joint is unremarkable. No widening of the pubic symphysis. No acute fracture or malalignment. No unusual lytic or sclerotic lesions of bone. SOFT TISSUES: Soft tissue swelling along the left hip laterally. VASCULATURE: Atherosclerotic calcifications of the iliac arteries and femoral arteries. RAD/HIP, UNI W/ Pelvis 2-3 Views IMPRESSION: Soft tissue swelling but no definite acute or healing fracture or malalignment. If still concerned for occult fracture, consider CT or MRI which are more sensitive studies. Electronically Signed: Yakov Wakefield MD at 0:01 EDT ,
== END | disposition home or self-care (01) ==
PROVIDERS: PCP Nurse Practitioner Family; Referring Provider Nurse Practitioner Family; Visit Provider Nurse Practitioner Family
DX: M25.552 Pain in left hip (principal)
CPT/HCPCS: 73502

== ENCOUNTER 2024-04-01 08:00 | Outpatient (RCR) | payer MEDICARE, SELFPAY ==
--- NOTE | 2024-03-12 14:05 | HP.PTEVAL_ITS ---
Patient's Visit Information Visit Information Visit Information: AKASH GREGORY is a 83 year old M referred to Physical Therapy by Dr. 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 Date of Evaluation: 03/12/24 Physical Therapist: Jordan Guido, PT, Cert MDT, OCS Visit Plan Frequency: 2x /Week Duration: 4 Weeks Plan: PT INTERVENTIONS POSTURAL EX'S ,DLS ,LUMBAR ROM ,ACTIVITY MODIFICATION AND LE FLEXABILITY Subjective Subjective: This 83 y/o male presents to physical therapy for lumbar pain. Patient has had lumbar pain many years ,but started to radiate to buttock for ~ 1 month, Janinee DR beauchamp x-rays showed Moderate degenerative changes of the lumbar spine. Did injection. Patient had pain medication. Pain located symmetrical and radiates glut. Aggravating sitting ,extended walking/standing < 15mins ,lifting ,bending. Alleviating factors rest . Coughing/sneezing-Bowel/bladder-.Denies paresthesia/tingling-. Sleeping okay. No trauma. .Patient has no prior tx. Patient has no pain management. Patient condition affects ADL and housework tasks. Patient goals to decrease back pain.Medication: Narco. Patient has multiple comorbities to influences condition to include Parkinson's SOCIAL: VOVATION: retired Pain Bilateral Back: Pain Intensity (Out of 10): 5 Pain Intensity Range: 10 Left Buttocks: Pain Intensity (Out of 10): 4 Pain Intensity Range: 10 Objective Objective: POSTURE: mild forward posture ,trunk flexed ,asymmetries PALPATION: unremarkable NEURO: denies paresthesia/tingling ,reflexes L3-4,L4-5 ,L5-S1 1/3 FLEXABILITY: hamstrings mod tight tight ,piriformis mod tight HIP IR: 0 degrees MMT: quads/hams 4/5 ( peak force) hip flexion 23.2,left 20.8 ,hip abduction 17.9 ,left ,right 18.9 LUMBAR ROM: flexion mod loss ,extensio severe loss ,side glides mod loss Special Tests L/S Slump test left side: Negative L/S Slump test right side: Negative L/S Left Straight Leg Raise: Negative L/S Right Straight Leg Raise: Negative Balance/Special Test Scores Oswestry Low Back Score: 30 Goals Goal 1:: Patient to be I with HEP for lumbar Goal Time Frame: 4-6 Weeks Goal 2:: Patient to improve peak force hips by 5-10 # to improve function with standing/walking Goal Time Frame: 4-6 Weeks Goal 3:: Patient to demonstrate 50% improve with improved function and less back pain. Goal Time Frame: 4-6 Weeks Goal 4:: Patient to improve lumbar ROM for function of recovery to put on shoes Goal Time Frame: 4-6 Weeks Goal 5:: Patient to improve back oswestry score by 5 points to improve QOL and function. Goal Time Frame: 4-6 Weeks Rehabilitation Potential Physical Therapy Diagnosis: This patient has lumbar pain along with h/o parkinson's with decrease lumbar ROM ,weakness ,decrease posture affects standing and walking with housework tasks thus benefit from, skilled PT Rehabilitation Potential: Good Anticipated Interventions Patient/Client Instruction: Educate patient on: Condition and Plan of Care For the Purpose of:: To decrease pain, To increase ROM, To improve muscle performance and motor function, To improve ability to perform ADL's, To increase tolerance to activity/condition/position, To improve ability of physical actions for home/community/work/leisure, To improve gait and locomotor functions, To improve health of tissue, To increase flexibility/ROM, To reduce risk of recurrence and To improve tolerance to ADL's Therapeutic Exercise to Include: Strength training, Body mechanics, Postural training, Flexibilty training and Dynamic Lumbar Stabilization Comment: HIPS For the Purpose of:: To decrease pain, To increase ROM, To improve muscle performance and motor function, To increase tolerance to activity/condition/position, To improve ability of physical actions for home/community/work/leisure, To improve health of tissue, To decrease soft tissue restriction and To increase flexibility/ROM TENS: Yes IF ES: Yes Cryotherapy (ice pack, ice massage): Yes Thermo therapy (hot pack): Yes For the Purpose of:: To decrease pain, To increase ROM, To improve health of tissue and To decrease soft tissue restriction Text: Thank you for the opportunity to evaluate your patient. For Medicare and Medicare HMO plans, please review the plan of care and approve it. It will need to be FAXED BACK to us at [phone] for Medicare purposes. For Medicare only, by signing this I certify the plan of care. Please let me know if there are questions or concerns regarding this plan of ca re. Physician Signature: Date:
--- NOTE | 2024-06-30 12:52 | HP.PT.NRP ---
Patient Information Patient Information: AKASH GREGORY was seen in my office for initial evaluation on 03/12/24. The following Plan of Care was established for this patient: POC Established Initial Frequency: 2x /Week Initial Duration: 4 Weeks Anticipated Interventions Patient/Client Instruction: Educate patient on: Condition and Plan of Care For the Purpose of:: To decrease pain, To increase ROM, To improve muscle performance and motor function, To improve ability to perform ADL's, To increase tolerance to activity/condition/position, To improve ability of physical actions for home/community/work/leisure, To improve gait and locomotor functions, To improve health of tissue, To increase flexibility/ROM, To reduce risk of recurrence and To improve tolerance to ADL's Therapeutic Exercise to Include: Strength training, Body mechanics, Postural training, Flexibilty training and Dynamic Lumbar Stabilization For the Purpose of:: To decrease pain, To increase ROM, To improve muscle performance and motor function, To increase tolerance to activity/condition/position, To improve ability of physical actions for home/community/work/leisure, To improve health of tissue, To decrease soft tissue restriction and To increase flexibility/ROM TENS: Yes IF ES: Yes Cryotherapy (ice pack, ice massage): Yes Thermo therapy (hot pack): Yes For the Purpose of:: To decrease pain, To increase ROM, To improve health of tissue and To decrease soft tissue restriction Last Seen Last Seen: This patient was last seen in our office . Pertinent comments regarding their Physical therapy will appear below: Patient seen for PT for lumbar radiculopathy for DLS ,postural ex's and flexibility thus is d/c to hep At this point I will be discontinuing this patient from physical therapy. I would be happy to see this patient again in the future if found appropriate by the physician. Thank you! Jordan Guido, PT, Cert MDT, OCS Balance/Gait/Functional tests Balance/Special Test Scores Oswestry Low Back Score: 4
== END 2024-04-01 19:00 | disposition home or self-care (01) ==
LOC: PT 08:00
PROVIDERS: PCP Nurse Practitioner Family; Visit Provider Orthopaedic Surgery
DX: M47.818 Spondylosis without myelopathy or radiculopathy, sacral and sacrococcygeal region (principal); M47.816 Spondylosis without myelopathy or radiculopathy, lumbar region
CPT/HCPCS: 97110; 97162

== ENCOUNTER 2024-06-27 10:19 | Outpatient (CLI) | payer MEDICARE, SELFPAY | END 2024-06-27 23:59 | disposition home or self-care (01) | LOC: MEDOUTP 10:21 | PROVIDERS: PCP Nurse Practitioner Family; Referring Provider Nurse Practitioner Family; Visit Provider Nurse Practitioner Family | DX: E55.9 Vitamin D deficiency, unspecified (principal); E11.22 Type 2 diabetes mellitus with diabetic chronic kidney disease; N18.30 Chronic kidney disease, stage 3 unspecified | CPT/HCPCS: 36591; 82306; A4216 ==

== ENCOUNTER → 2024-08-07 | Outpatient (CLI) | payer MEDICARE, SELFPAY ==
--- NOTE | 2024-08-07 11:50 | RAD_ITS ---
EXAM: XR CHEST, 2 VIEWS CLINICAL INDICATION: shortness of breath TECHNIQUE: Frontal and lateral views of the chest. COMPARISON: No relevant prior studies available. FINDINGS: LUNGS AND PLEURAL SPACES: Unremarkable. No consolidation or edema. No pneumothorax. No effusion. HEART: Unremarkable. Cardiac silhouette not enlarged. MEDIASTINUM: Central airways and mediastinal contour are unremarkable. BONES/JOINTS: Unremarkable. No acute fracture. SOFT TISSUES: Unremarkable. TUBES, LINES AND DEVICES: Right-sided Port-A-Cath with the distal tip overlying the superior vena cava. RAD/Chest PA and Lateral IMPRESSION: No acute findings in the chest. Electronically Signed: Alvin Maciel MD at 17:07 EDT ,
[2024-08-07 11:54] LABS: Anion Gap 6 (5-15); BNP,B-Type NATRIURETIC PEPTIDE 101.6 pg/mL (0-100); BUN 24 mg/dL (7-18); BUN/Creat Ratio 17.8 RATIO (10-20); Calcium,Total 9.5 mg/dL (8.5-10.1); Chloride 101 mmol/L (98-107); Creatinine, Serum 1.35 mg/dL (0.70-1.30); EST Glomerular Filtration Rate 54 mL/min (>60); Est Glom Filt Rate - Afr Amer 65 mL/min (>60); Glucose 184 mg/dL (74-106); Sodium Level 135 mmol/L (136-145)
[2024-08-07 19:37] LABS: Xtra Tube EP Lab EXTRA TUBE
== END | disposition home or self-care (01) ==
LOC: PAVLAB 11:22
PROVIDERS: PCP Nurse Practitioner Family; Referring Provider Nurse Practitioner Acute Care; Visit Provider Nurse Practitioner Acute Care
DX: R06.02 Shortness of breath (principal)
CPT/HCPCS: 36415; 71046; 80048; 83880

== ENCOUNTER 2024-10-02 12:16 | Emergency (ER) | payer MEDICARE, SELFPAY ==
[2024-10-02 12:16] VITALS: BP 140/70; PULSE 61; RESP 18; TEMP 37.2; O2SAT 95; BMI 36.3
[2024-10-02 12:24] VITALS: BP 140/70; PULSE 61; RESP 18; TEMP 37.2; O2SAT 95
[2024-10-02 13:08] LABS: Bacteria 0 SEEN /hpf (None Seen); Mucous, Urine 0 SEEN /hpf (<or=2+); Red Blood Cells-Urine 0 SEEN /hpf (0-5); Squamous Epithelial Cells - UA 0 SEEN /hpf (0-5)
[2024-10-02 13:19] VITALS: BP 121/58; PULSE 59; RESP 14; TEMP 36.6; O2SAT 95
[2024-10-02] MEDS: Ceftriaxone 1 GM/50 ML BAG IV (13:20)
[2024-10-02 13:21] LABS: Color, Urine Yellow (Yellow); Glucose, Dipstick 1000 mg/dl (Normal); Ketone-Dipstick Negative (Negative); Leukocyte Esterase-Dipstick Negative /ul (Negative); Nitrite-Dipstick Negative (Negative); Occult Blood-Urine 10 /ul (Negative); Protein-Dipstick 30 mg/dl (Negative); Urine Bilirubin Dipstick Negative (Negative); Urine Clarity Clear (Clear); Urine Urobilinogen Normal (Normal)
[2024-10-02 13:24] LABS: Absolute Lymphocyte Count 0.78 X10^3/uL (0.83-4.51); Absolute Neutrophil Count 6.7 X10^3/uL (2.0-7.7); Basophil# 0.01 X10^3/uL; Basophil% 0.1 % (0-1); Hematocrit 37.3 % (40-54); Hemoglobin 12.2 g/dL (13.0-16.5); Lymphocyte # 0.78 X10^3/ul (0.83-4.51); Lymphocyte % 9.8 % (19-41); Mean Corp Hgb Conc 32.7 g/dL (32-36); Mean Corpuscular Hgb 31.9 pg (27.0-32.0); Mean Corpuscular Volume 97.6 fL (80-94); Mean Platelet Vol. 10.2 fl (6.2-12.0); Monocyte# 0.46 X10^3/uL; Monocyte% 5.8 % (0-10); NRBC Flagged by Analyzer 0 % (0-5); Platelet Count 230 K/mm3 (150-450); RBC Distribution Width CV 13.7 % (11.6-14.6); RBC Distribution Width SD 49.4 fl (35.1-43.9); Red Blood Count 3.82 M/mm3 (4.6-6.2)
[2024-10-02 13:29] LABS: White Blood Cells 0-5 SEEN /hpf (0-5)
[2024-10-02 13:30] LABS: Anion Gap 6 (5-15); BUN 23 mg/dL (7-18); BUN/Creat Ratio 17.7 RATIO (10-20); Calcium,Total 8.9 mg/dL (8.5-10.1); Chloride 101 mmol/L (98-107); EST Glomerular Filtration Rate 56 mL/min (>60); Est Glom Filt Rate - Afr Amer 68 mL/min (>60); Estimated Creatinine Clearance 52.32 ml/min; Glucose 340 mg/dL (74-106); Potassium 4.5 mmol/L (3.5-5.1); Sodium Level 132 mmol/L (136-145)
== END 2024-10-02 14:12 | disposition home or self-care (01) ==
PROVIDERS: Physician Assistant; Emergency Provider Emergency Medicine; PCP Nurse Practitioner Family; Referring Provider Emergency Medicine; Visit Provider Emergency Medicine
DX: M54.50 Low back pain, unspecified (principal); Z93.6 Other artificial openings of urinary tract status; G20.A1 Parkinson's disease without dyskinesia, without mention of fluctuations; E11.22 Type 2 diabetes mellitus with diabetic chronic kidney disease; E11.40 Type 2 diabetes mellitus with diabetic neuropathy, unspecified; N18.30 Chronic kidney disease, stage 3 unspecified; I25.10 Atherosclerotic heart disease of native coronary artery without angina pectoris; I12.9 Hypertensive chronic kidney disease with stage 1 through stage 4 chronic kidney disease, or unspecified chronic kidney disease; I25.2 Old myocardial infarction; F17.210 Nicotine dependence, cigarettes, uncomplicated; Z95.1 Presence of aortocoronary bypass graft; Z79.84 Long term (current) use of oral hypoglycemic drugs; Z79.899 Other long term (current) drug therapy
CPT/HCPCS: 96365; 99283; 80048; 81001; 85025; 87086; A4216

== ENCOUNTER 2024-10-03 12:45 | Inpatient (IN) | payer MEDICARE, SELFPAY ==
[2024-10-03] VITALS (14 sets, daily range): BP systolic 121–142; BP diastolic 55–69; PULSE 60–66; RESP 18–26; TEMP 36.6–38; O2SAT 91–98; BMI 23.8; BMI 36.0
--- NOTE | 2024-10-03 13:01 | ED.RN ---
Patient presents from physicians office where [facility] called patient to tell him his blood cultures came back positive for staph.
--- NOTE | 2024-10-03 13:20 | EKG12_ITS ---
Test Reason : Blood Pressure : */* mmHG Vent. Rate : 62 BPM Atrial Rate : 62 BPM P-R Int : 168 ms QRS Dur : 102 ms QT Int : 412 ms P-R-T Axes : 68 49 34 degrees QTcB Int : 418 ms Normal sinus rhythm Normal ECG Confirmed by JENNIFER GEORGES, AKIL ([id number]), telegraph editor MANJIT RAMIREZ ([id number]) on 10/06/2024 9:38:19 AM Referred By: Confirmed By: AKIL RODRIGUEZ MD
--- NOTE | 2024-10-03 13:20 | CT_ITS ---
EXAM: CT ABDOMEN AND PELVIS WITHOUT INTRAVENOUS CONTRAST CLINICAL INDICATION: flank pain TECHNIQUE: Helically acquired images were obtained of the abdomen and pelvis without intravenous contrast. This CT exam was performed using one or more of the following dose reduction techniques: automated exposure control, adjustment of the mA and/or kV according to patient size, and/or use of iterative reconstruction technique. COMPARISON: CT Abdomen Pelvis dated 10/26/2023 FINDINGS: LOWER THORAX: Small right pleural effusion and mild compression atelectasis of the right lower lobe. ABDOMEN: LIVER: Normal. Homogeneous. GALLBLADDER AND BILE DUCTS: Small calcified stones again seen within the gallbladder. No gallbladder distention or wall edema. No intra- or extrahepatic biliary ductal dilation. PANCREAS: Normal. No focal cystic mass. SPLEEN: Normal. Normal size without focal cystic or solid mass. ADRENALS: Normal. No nodules. KIDNEYS AND URETERS: Bilateral renal sinus calcification appears to be vascular in origin. Right renal collecting system is distended but improved from prior exam. Nonspecific perinephric fat stranding similar to prior study. STOMACH AND BOWEL: Mild stool burden within the large bowel. Ileal loop diversion again seen. PELVIS: APPENDIX: Appendix is visualized and normal in appearance. BLADDER: Surgical changes of urinary cystectomy again seen. REPRODUCTIVE: Unremarkable as visualized. No mass. ABDOMEN and PELVIS: INTRAPERITONEAL SPACE: Normal. No ascites or other fluid collection. No free air. BONES/JOINTS: Prominent degenerative changes are noted within the spine. Stable postoperative changes of the mid-lower lumbar spine. SOFT TISSUES: Stable small fat-containing bilateral inguinal hernias. Stable fat-containing parastomal hernia. VASCULATURE: See above. LYMPH NODES: Normal. No enlarged lymph nodes. CT/Abdomen/Pelvis without Cont IMPRESSION: 1. Small right pleural effusion with mild compression atelectasis of the right lower lobe. 2. Cholelithiasis. 3. Mild right hydronephrosis and hydroureter improved from prior exam. 4. 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 Electronically Signed: Trey Gan MD at 14:12 EST ,
--- NOTE | 2024-10-03 13:28 | EX.ED.DYSGE1 ---
HPI <ELVER Goodman - Last Filed: 10/03/24 14:42> History of Present Illness Chief Complaint: Flank Pain Narrative Narrative: Patient is an 84-year-old male with history of prostate and bladder cancer who now has a urostomy, hypertension hyperlipidemia CAD who presents to the emergency department for positive blood cultures. Over the last week, the patient has been to the emergency department 3 times, patient has been having some back pain with intermittent weakness, intermittent confusion. Patient was seen here yesterday, and was able to be discharged home. Patient did have a CT scan done on September 30 that was negative. Patient's blood culture does say it is positive for gram-positive cocci in clusters this was completed at [facility]. Patient states he has generalized feeling of not well. He is still having the back pain. [facility] <ELVER Goodman - Last Filed: 10/03/24 14:42> [facility] Medical History Candidal dermatitis Candidiasis Sleep apnea Kidney disease Smoker H/O cardiovascular stress test History of left heart catheterization (~02/24/10) Cardiology follow-up encounter Port-A-Cath in place (~01/24/21) History of blood transfusion bladder instill antica agent Low back pain Primary hypertension Emphysema, unspecified Congenital stenosis and stricture of esophagus Cardiac murmur, unspecified Atherosclerotic heart disease Anemia Acute kidney failure, unspecified Gross hematuria BPH with obstruction/lower urinary tract symptoms Bladder cancer Nicotine dependence, cigarettes, uncomplicated JOHN (obstructive sleep apnea) COPD (chronic obstructive pulmonary disease) Acute RI, inferior wall CKD stage 3 Diabetes mellitus Hyperlipidemia Pulmonary HTN CAD (coronary artery disease) Diabetic neuropathy Mitral valve regurgitation Tricuspid valve regurgitation B12 deficiency Parkinson disease Pneumonia Tobacco use disorder, continuous Obesity Home Medications ?Medication ?Instructions ?Recorded ?Last Taken ?Type duloxetine 60 mg capsule,delayed 60 mg PO BID DEPRESSION 03/12/18 Unknown History release gabapentin 800 mg tablet 800 mg PO TID PARKINSONS 03/12/18 05/06/21 History omega-3 fatty acids 1,000 mg 1,000 mg PO QDAY SUPPLEMENT 03/12/18 Unknown History capsule fenofibrate 160 mg tablet 160 mg PO DAILY CHOLESTEROL 01/14/21 Unknown History glimepiride 4 mg tablet 4 mg PO DAILY DIABETIC 01/14/21 Unknown History pioglitazone 45 mg tablet (Actos) 45 mg PO DAILY DIABETES 01/14/21 Unknown History primidone 250 mg tablet 250 mg PO TID PARKINSONS 01/14/21 05/06/21 History simvastatin 40 mg tablet 40 mg PO QHS CHOLESTEROL 01/14/21 Unknown History topiramate 50 mg tablet 50 mg PO BID TREMORS 01/14/21 01/24/21 05:30 History 50 MG hydrocodone-acetaminophen 5-325mg 1 tab PO Q6H PRN Pain 03/23/21 Unknown History 5mg-325mg ipratropium 0.5 mg-albuterol 3 mg 3 ml inhalation Q6H COPD J44.9 07/03/22 Unknown Rx (2.5 mg base)/3 mL nebulization #180 mL soln lidocaine-prilocaine 2.5 %-2.5 % 1 applic topical DAILY PRN PRN 08/10/23 Unknown Rx topical cream port access 30 days #1 tube carbidopa 25 mg-levodopa 100 mg 1 tab PO BID 10/31/23 Unknown History tablet budesonide 160 mcg-glycopyr 9 2 inh inhalation BID #10.7 grams 12/24/23 Unknown Rx mcg-formot 4.8 mcg/actuation HFA inhaler (Breztri Aerosphere) losartan 25 mg tablet 25 mg PO QDAY 04/01/24 Unknown History prednisone 20 mg tablet 60 mg (3 x 20 mg) PO QDAY #15 tabs 08/07/24 Unknown Rx Allergy/AdvReac Type Severity Reaction Status Date / Time No Known Allergies Allergy Verified 10/03/24 12:46 Family History Mother Ovarian cancer Father Heart disease Brother Leukemia Surgical History Status post radical cystoprostatectomy Hx of transurethral resection of prostate (~01/05/21) History of quadruple bypass History of hand surgery History of ankle surgery Hx of cystoscopy S/P TURP Previous back surgery S/P CABG x 4 Social History current occupational status: retired Smoking Status: Light Smoker (<10/day) alcohol intake: never substance use type: does not use caffeine: Yes Type: coffee Number of servings: 1 eating out: rarely or never ROS <ELVER Goodman - Last Filed: 10/03/24 14:42> ROS ED ROS Narrative Constitutional: Negative for fever, chills, weight loss. Generalized feeling of weakness Eyes: Negative for vision loss, vision change, double vision ENT: Negative for any sore throat, ear pain, congestion Cardiovascular: Negative for any chest pain, tightness, palpitations Respiratory: Negative for any cough, sputum production, hemoptysis, dyspnea, dyspnea on exertion, orthopnea Gastrointestinal: Negative for any abdominal pain, nausea, vomiting, diarrhea, constipation, blood in stool, blood in vomit : Negative for any urinary frequency, dysuria, retention, blood in urine Muscle skeletal: Negative for any neck pain. Positive for back pain Neurological: Negative for any headache, syncope, dizziness Skin: Negative for any rashes, itching, abrasions, lacerations Psychiatric: Negative for any depression, anxiety, stress, suicidal ideation, homicidal ideation Hematologic: Negative for any excessive bruising, easy bleeding EXAM <ELVER Goodman - Last Filed: 10/03/24 14:42> Physical Exam Narrative Exam Narrative: Vital signs reviewed. Patient appears to be in no obvious distress. HEET: Head normocephalic atraumatic, TMs clear bilaterally. Posterior pharynx is clear, moist mucous membranes. Nares clear bilaterally. Neck: Supple with no lymphadenopathy or tenderness. No signs of meningismus. Cardiac: Regular rate and rhythm no murmurs gallops or rubs, equal peripheral pulses bilaterally. Respiratory: Expiratory wheezes throughout pulmonary exam. No chest tenderness. Abdomen: Soft, nontender, nondistended. No abdominal bruit or pulsatile masses. No hepatosplenomegaly Extremities: No peripheral edema, no signs of gross trauma or deformity. Active full range of motion of all extremities. Neuro: Cranial nerves II through XII intact, no focal neurological deficits. Skin: Clean dry and intact with no rash, purpura, petechiae, vesicles or pustules. Backs/flank: No CVA tenderness, no midline spinal tenderness, no deformity. Psych: Normal mood and affect. No SI, HI or acute psychosis. Const Vital Signs: 10/03/24 12:45 10/03/24 12:47 10/03/24 13:40 Temperature 97.9 F 97.9 F Temperature Source Temporal Oral Pulse Rate 65 65 Respiratory Rate 18 18 Blood Pressure 132/69 H 121/55 H Blood Pressure Mean 90 77 Pulse Ox 93 93 92 Oxygen Delivery Method Room Air Room Air Room Air 10/03/24 13:44 10/03/24 13:44 10/03/24 13:47 Temperature 97.9 F Temperature Source Oral Pulse Rate 62 62 Respiratory Rate 23 H 21 H Blood Pressure 123/60 H Blood Pressure Mean 81 Pulse Ox 93 Oxygen Delivery Method Room Air Room Air 10/03/24 14:00 10/03/24 14:05 Temperature 97.9 F Temperature Source Oral Pulse Rate 60 60 Respiratory Rate 21 H 26 H Blood Pressure 135/63 H Blood Pressure Mean 87 Pulse Ox 92 Oxygen Delivery Method Room Air <Dr. Marv Carreon DO - Last Filed: 10/03/24 15:11> Physical Exam Const Vital Signs: 10/03/24 12:45 10/03/24 12:47 10/03/24 13:40 Temperature 97.9 F 97.9 F Temperature Source Temporal Oral Pulse Rate 65 65 Respiratory Rate 18 18 Blood Pressure 132/69 H 121/55 H Blood Pressure Mean 90 77 Pulse Ox 93 93 92 Oxygen Delivery Method Room Air Room Air Room Air 10/03/24 13:44 10/03/24 13:44 10/03/24 13:47 Temperature 97.9 F Temperature Source Oral Pulse Rate 62 62 Respiratory Rate 23 H 21 H Blood Pressure 123/60 H Blood Pressure Mean 81 Pulse Ox 93 Oxygen Delivery Method Room Air Room Air 10/03/24 14:00 10/03/24 14:05 Temperature 97.9 F Temperature Source Oral Pulse Rate 60 60 Respiratory Rate 21 H 26 H Blood Pressure 135/63 H Blood Pressure Mean 87 Pulse Ox 92 Oxygen Delivery Method Room Air MDM <ELVER Goodman - Last Filed: 10/03/24 14:42> [facility] Lab Data Labs: Laboratory Results - last 24 hr 10/03/24 10/03/24 13:30 14:04 WBC 6.6 RBC 3.58 L Hgb 12.1 L Hct 34.4 L MCV 96.1 H MCH 33.8 H MCHC 35.2 D RDW Std Deviation 47.9 H RDW Coeff of Yara 13.5 Plt Count 252 MPV 10.1 Immature Gran % (Auto) 0.600 Neut % (Auto) 79.1 H Lymph % (Auto) 12.5 L [place] % (Auto) 7.5 Eos % (Auto) 0.0 Baso % (Auto) 0.3 Absolute Neuts (auto) 5.2 Absolute Lymphs (auto) 0.82 L Nucleated RBC % 0 PT 15.5 H INR 1.2 APTT 30.5 Sodium 132 L Potassium 4.3 Chloride 100 Carbon Dioxide 25.0 Anion Gap 7 BUN 22 H Creatinine 1.36 H Estim Creat Clear Calc 40.51 Est GFR (MDRD) Af Amer 64 Est GFR (MDRD) Non-Af 53 L BUN/Creatinine Ratio 16.2 Glucose 386 H Lactic Acid 1.5 Calcium 8.6 Total Bilirubin 0.40 AST 13 L ALT 12 L Alkaline Phosphatase 62 Total Protein 7.2 Albumin 2.8 L Globulin 4.4 H Albumin/Globulin Ratio 0.6 L Urine Color Yellow Urine Clarity Clear Urine pH 6.0 Ur Specific Brady 1.010 Urine Protein Negative Urine Glucose (UA) 1000 H Urine Ketones Negative Urine Occult Blood 10 H Urine Nitrite Negative Urine Bilirubin Negative Urine Urobilinogen Normal Ur Leukocyte Esterase Negative Urine RBC 0 SEEN Urine WBC 0 SEEN Ur Squamous Epith Cells 0 SEEN Urine Bacteria 0 SEEN Urine Mucus 0 SEEN Radiography Diagnostic Testing: Clinical Impression(s) from Imaging Studies Abdomen/Pelvis CT 10/03/24 13:20 IMPRESSION: 1. Small right pleural effusion with mild compression atelectasis of the right lower lobe. 2. Cholelithiasis. 3. Mild right hydronephrosis and hydroureter improved from prior exam. 4. 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 Electronically Signed: Trey Gan MD at 14:12 EST , EKG EKG shows a normal sinus rhythm, rate of 62 bpm: Attestation: I personally reviewed and interpreted this EKG as follows: Interpretation: Sinus Rhythm Comments: EKG is normal sinus rhythm, rate of 62 bpm, [place] 168 ms, QRS duration 102 ms, no acute ST elevation, no acute infarct noted. Treatment and Re-Evaluation :: Differential diagnosis includes however is not limited to: Positive blood cultures, UTI, obstructing uropathy, lumbar strain MDM presenting to the emergency department with positive blood cultures from October 01, 2024. Patient was positive for gram cocci in clusters. Patient will be started IV vancomycin, IV Zosyn. Patient will receive a abdominal CT without contrast. Patient will have other blood work completed, patient received breathing treatments for the wheezing. Patient will likely to be admitted to the hospital. All radiologic examinations were read, reviewed by the emergency department attending. From these reads, a plan of care will be put in place. Patient is EKG was unremarkable. Patient CT scan shows small right pleural effusion with mild compression atelectasis of the right lower lobe. Cholelithiasis. Mild right hydronephrosis and hydroureter that has improved. 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 Patient's laboratory values show a normal CBC, hemoglobin 12.1 which is stable. Patient's PT/INR within normal limits. Patient's chemistry shows sodium 132, this is baseline. Creatinine 1.36 as well as baseline. Glucose 386 however patient has been on steroids. Secondary to the positive blood culture, I did repeat the blood culture today. Patient was given IV Zosyn, vancomycin. I did reach out to admitting physician, she will admit the patient, Jordi full. <Dr. Marv Carreon, DO - Last Filed: 10/03/24 15:11> [facility] Lab Data Labs: Laboratory Results - last 24 hr 10/03/24 10/03/24 13:30 14:04 WBC 6.6 RBC 3.58 L Hgb 12.1 L Hct 34.4 L MCV 96.1 H MCH 33.8 H MCHC 35.2 D RDW Std Deviation 47.9 H RDW Coeff of Yara 13.5 Plt Count 252 MPV 10.1 Immature Gran % (Auto) 0.600 Neut % (Auto) 79.1 H Lymph % (Auto) 12.5 L [place] % (Auto) 7.5 Eos % (Auto) 0.0 Baso % (Auto) 0.3 Absolute Neuts (auto) 5.2 Absolute Lymphs (auto) 0.82 L Nucleated RBC % 0 PT 15.5 H INR 1.2 APTT 30.5 Sodium 132 L Potassium 4.3 Chloride 100 Carbon Dioxide 25.0 Anion Gap 7 BUN 22 H Creatinine 1.36 H Estim Creat Clear Calc 40.51 Est GFR (MDRD) Af Amer 64 Est GFR (MDRD) Non-Af 53 L BUN/Creatinine Ratio 16.2 Glucose 386 H Lactic Acid 1.5 Calcium 8.6 Total Bilirubin 0.40 AST 13 L ALT 12 L Alkaline Phosphatase 62 Total Protein 7.2 Albumin 2.8 L Globulin 4.4 H Albumin/Globulin Ratio 0.6 L Urine Color Yellow Urine Clarity Clear Urine pH 6.0 Ur Specific Brady 1.010 Urine Protein Negative Urine Glucose (UA) 1000 H Urine Ketones Negative Urine Occult Blood 10 H Urine Nitrite Negative Urine Bilirubin Negative Urine Urobilinogen Normal Ur Leukocyte Esterase Negative Urine RBC 0 SEEN Urine WBC 0 SEEN Ur Squamous Epith Cells 0 SEEN Urine Bacteria 0 SEEN Urine Mucus 0 SEEN Radiography Diagnostic Testing: Clinical Impression(s) from Imaging Studies Abdomen/Pelvis CT 10/03/24 13:20 IMPRESSION: 1. Small right pleural effusion with mild compression atelectasis of the right lower lobe. 2. Cholelithiasis. 3. Mild right hydronephrosis and hydroureter improved from prior exam. 4. 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 Electronically Signed: Trey Gan MD at 14:12 EST Reading Location ID and State: [facility] / [place] Tel , Service support , Treatment and Re-Evaluation :: Differential diagnosis includes however is not limited to: Positive blood cultures, UTI, obstructing uropathy, lumbar strain MDM presenting to the emergency department with positive blood cultures from October 01, 2024. Patient was positive for gram cocci in clusters. Patient will be started IV vancomycin, IV Zosyn. Patient will receive a abdominal CT without contrast. Patient will have other blood work completed, patient received breathing treatments for the wheezing. Patient will likely to be admitted to the hospital. All radiologic examinations were read, reviewed by the emergency department attending. From these reads, a plan of care will be put in place. Patient is EKG was unremarkable. Patient CT scan shows small right pleural effusion with mild compression atelectasis of the right lower lobe. Cholelithiasis. Mild right hydronephrosis and hydroureter that has improved. 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 Patient's laboratory values show a normal CBC, hemoglobin 12.1 which is stable. Patient's PT/INR within normal limits. Patient's chemistry shows sodium 132, this is baseline. Creatinine 1.36 as well as baseline. Glucose 386 however patient has been on steroids. Secondary to the positive blood culture, I did repeat the blood culture today. Patient was given IV Zosyn, vancomycin. I did reach out to admitting physician, she will admit the patient, Jordi fry. ED attending note: I evaluated the patient in conjunction with the PATTI. I agree with his/her statements and above findings. I have personally performed a face to face assessment of the patient and have reviewed the PATTI Note. I performed a substantive portion of the visit including all aspects of the following. I personally saw the patient performed chart review, physical exam, reviewed labs, imaging (if obtained), and formulated a treatment and management plan. This note was generated with [employer] dictation software. It may contain incorrect words, spelling, and punctuation that were not noted in review of the chart prior to signing. Discharge Plan Dx/Rx/DC Orders Clinical Impression: Blood bacterial culture positive, COPD (chronic obstructive pulmonary disease), Acute hyperglycemia Disposition Disposition: Acute Care Hospital [facility]
[2024-10-03] MEDS: Ipratropium/Albuterol Sulfate 3 ML AMPUL.NEB INHALATION ×2 (13:41→23:32)
[2024-10-03 13:46] LABS: Absolute Lymphocyte Count 0.82 X10^3/uL (0.83-4.51); Absolute Neutrophil Count 5.2 X10^3/uL (2.0-7.7); Basophil# 0.02 X10^3/uL; Basophil% 0.3 % (0-1); Hematocrit 34.4 % (40-54); Hemoglobin 12.1 g/dL (13.0-16.5); Lymphocyte # 0.82 X10^3/ul (0.83-4.51); Lymphocyte % 12.5 % (19-41); Mean Corp Hgb Conc 35.2 g/dL (32-36); Mean Corpuscular Hgb 33.8 pg (27.0-32.0); Mean Corpuscular Volume 96.1 fL (80-94); Mean Platelet Vol. 10.1 fl (6.2-12.0); Monocyte# 0.49 X10^3/uL; Monocyte% 7.5 % (0-10); NRBC Flagged by Analyzer 0 % (0-5); Neutrophil # 5.19 X10^3/uL (2.7-7.7); Neutrophil % 79.1 % (47-70); Platelet Count 252 K/mm3 (150-450); RBC Distribution Width CV 13.5 % (11.6-14.6); RBC Distribution Width SD 47.9 fl (35.1-43.9); Red Blood Count 3.58 M/mm3 (4.6-6.2); White Blood Count 6.6 K/mm3 (4.4-11.0)
[2024-10-03 14:04] LABS: International Normalized Ratio 1.2; Partial Thromboplast Time 30.5 Seconds (24.1-36.2); Prothrombin Time (Protime)PT. 15.5 SECONDS (11.7-14.9)
[2024-10-03] MEDS: Albuterol 2.5 MG/3 ML VIAL.NEB. 5 MG INHALATION (14:05)
[2024-10-03 14:07] LABS: ALB/GLOB Ratio 0.6 RATIO (0.9-2.4); AST(SGOT) 13 U/L (15-37); Alanine Aminotransfer ALT/SGPT 12 U/L (16-61); Albumin, Serum 2.8 g/dL (3.2-5.0); Alkaline Phosphatase 62 U/L (45-117); Anion Gap 7 (5-15); BUN 22 mg/dL (7-18); BUN/Creat Ratio 16.2 RATIO (10-20); Calcium,Total 8.6 mg/dL (8.5-10.1); Chloride 100 mmol/L (98-107); Creatinine, Serum 1.36 mg/dL (0.70-1.30); EST Glomerular Filtration Rate 53 mL/min (>60); Est Glom Filt Rate - Afr Amer 64 mL/min (>60); Estimated Creatinine Clearance 40.51 ml/min; Globulin 4.4 g/dL (2.2-4.2); Glucose 386 mg/dL (74-106); Potassium 4.3 mmol/L (3.5-5.1); Protein, Total 7.2 g/dL (6.4-8.2); Sodium Level 132 mmol/L (136-145)
[2024-10-03] MEDS: Piperacil/Tazobactam 3.375 GM in 0.9% Normal Saline (50mL MB+) 50 ML IV (14:10)
[2024-10-03 14:11] LABS: Bacteria 0 SEEN /hpf (None Seen); Mucous, Urine 0 SEEN /hpf (<or=2+); Red Blood Cells-Urine 0 SEEN /hpf (0-5); Squamous Epithelial Cells - UA 0 SEEN /hpf (0-5); White Blood Cells 0 SEEN /hpf (0-5)
[2024-10-03 14:15] LABS: Color, Urine Yellow (Yellow); Glucose, Dipstick 1000 mg/dl (Normal); Ketone-Dipstick Negative (Negative); Leukocyte Esterase-Dipstick Negative /ul (Negative); Nitrite-Dipstick Negative (Negative); Occult Blood-Urine 10 /ul (Negative); Protein-Dipstick Negative (Negative); Urine Bilirubin Dipstick Negative (Negative); Urine Clarity Clear (Clear); Urine Urobilinogen Normal (Normal)
[2024-10-03 14:16] LABS: Lactic Acid 1.5 mmol/L (0.4-1.9)
[2024-10-03] MEDS: Vancomycin HCl 1,750 MG in 0.9% Normal Saline (500mL Bag) 500 ML 250 MG IV (14:48)
--- NOTE | 2024-10-03 15:24 | PCM.HP.STD ---
HPI - General General Date of Admission: 10/03/24 Date of Service: 10/03/24 Chief Complaint: Wheezing, weakness, +blood culture HPI Narrative AKASH GREGORY, is a 84-year-old male history of prostate and bladder cancer with urostomy, JOHN, COPD, diabetes, CAD, Parkinson's who presented [facility] ED 10/03/2024 for positive blood cultures.? Patient has been to the emergency department 4 times over the past week and has been having some back pain with intermittent weakness and intermittent confusion.? Seen yesterday in our ER and was able to be discharged home.? Had a CT on September 30 that was negative.? Patient had been to [facility] during this time and had a blood culture positive for gram-positive cocci in clusters.? Still has back pain and still feeling generally unwell. In the ED patient noted to be diffusely wheezing and breathing treatments ordered, lab workup fairly benign and CT scan of abdomen without acute process. Given patient's weakness and generally doing unwell as well as report of positive blood culture he was given antibiotics and hospitalist contacted for admission. Patient evaluated bedside with family present. Patient has been feeling unwell for 1 week and has had some diffuse wheezing and generalized weakness over this period of time. Possibly some increased shortness of breath as well but patient has not been moving as much due to some right-sided back pain. Patient also does have some cough with sputum as well. Denies any fevers or chills. reports on Sunday he was having some stumbling that he attributes to his back pain but also was having some intermittent confusion, his oxygen and blood pressure were not checked during this time. The confusion and being out of it has somewhat improved but the back pain and weakness and significant wheezing has persisted. PENDING SALE TO [facility] Medical History (Reviewed 08/07/24 @ 11:02 by Gerda Garcia [employer], [employer]) Candidal dermatitis Candidiasis Sleep apnea Kidney disease Smoker H/O cardiovascular stress test History of left heart catheterization (~02/24/10) Cardiology follow-up encounter Port-A-Cath in place (~01/24/21) History of blood transfusion bladder instill antica agent Low back pain Primary hypertension Emphysema, unspecified Congenital stenosis and stricture of esophagus Cardiac murmur, unspecified Atherosclerotic heart disease Anemia Acute kidney failure, unspecified Gross hematuria BPH with obstruction/lower urinary tract symptoms Bladder cancer Nicotine dependence, cigarettes, uncomplicated JOHN (obstructive sleep apnea) COPD (chronic obstructive pulmonary disease) Acute HI, inferior wall CKD stage 3 Diabetes mellitus Hyperlipidemia Pulmonary HTN CAD (coronary artery disease) Diabetic neuropathy Mitral valve regurgitation Tricuspid valve regurgitation B12 deficiency Parkinson disease Pneumonia Tobacco use disorder, continuous Obesity Home Medications ?Medication ?Instructions ?Recorded ?Last Taken ?Type duloxetine 60 mg capsule,delayed 60 mg PO BID DEPRESSION 03/12/18 Unknown History release gabapentin 800 mg tablet 800 mg PO TID PARKINSONS 03/12/18 05/06/21 History omega-3 fatty acids 1,000 mg 1,000 mg PO QDAY SUPPLEMENT 03/12/18 Unknown History capsule fenofibrate 160 mg tablet 160 mg PO DAILY CHOLESTEROL 01/14/21 Unknown History glimepiride 4 mg tablet 4 mg PO DAILY DIABETIC 01/14/21 Unknown History pioglitazone 45 mg tablet (Actos) 45 mg PO DAILY DIABETES 01/14/21 Unknown History primidone 250 mg tablet 250 mg PO TID PARKINSONS 01/14/21 05/06/21 History simvastatin 40 mg tablet 40 mg PO QHS CHOLESTEROL 01/14/21 Unknown History topiramate 50 mg tablet 50 mg PO BID TREMORS 01/14/21 01/24/21 05:30 History 50 MG hydrocodone-acetaminophen 5-325mg 1 tab PO Q6H PRN Pain 03/23/21 Unknown History 5mg-325mg ipratropium 0.5 mg-albuterol 3 mg 3 ml inhalation Q6H COPD J44.9 07/03/22 Unknown Rx (2.5 mg base)/3 mL nebulization #180 mL soln lidocaine-prilocaine 2.5 %-2.5 % 1 applic topical DAILY PRN PRN 08/10/23 Unknown Rx topical cream port access 30 days #1 tube carbidopa 25 mg-levodopa 100 mg 1 tab PO BID 10/31/23 Unknown History tablet budesonide 160 mcg-glycopyr 9 2 inh inhalation BID #10.7 grams 12/24/23 Unknown Rx mcg-formot 4.8 mcg/actuation HFA inhaler (Breztri Aerosphere) losartan 25 mg tablet 25 mg PO QDAY 04/01/24 Unknown History prednisone 20 mg tablet 60 mg (3 x 20 mg) PO QDAY #15 tabs 08/07/24 Unknown Rx Allergy/AdvReac Type Severity Reaction Status Date / Time No Known Allergies Allergy Verified 10/03/24 12:46 Family History (Reviewed 08/07/24 @ 11:02 by Gerda Garcia [employer], [employer]) Mother Ovarian cancer Father Heart disease Brother Leukemia Surgical History Status post radical cystoprostatectomy Hx of transurethral resection of prostate (~01/05/21) History of quadruple bypass History of hand surgery History of ankle surgery Hx of cystoscopy S/P TURP Previous back surgery S/P CABG x 4 Social History (Reviewed 08/07/24 @ 11:02 by Gerda Garcia [employer], [employer]) current occupational status: retired Smoking Status: Light Smoker (<10/day) alcohol intake: never substance use type: does not use caffeine: Yes Type: coffee Number of servings: 1 eating out: rarely or never ROS ROS Narrative General: Denies fever/chills, feels generally unwell HENT: Denies headache, denies stuffy nose, denies sore throat EYES: Denies changes in vision Resp: Has been unable to move around much due to his back pain but does have shortness of breath and significant wheezing, also has cough and sputum Cardiac: Denies chest pain GI: Denies abdominal pain, denies changes in bowel, denies nausea/vomiting : Denies changes in urination Extremity: Denies swelling MSK: Generalized weakness Neuro: Denies any numbness/tingling Heme: Denies any bleeding or bruising Skin: Denies rashes Psychiatric: No complaints voiced Vital Signs Vital Signs Vital Signs: 10/03/24 12:45 10/03/24 12:47 10/03/24 13:40 Temperature 97.9 F 97.9 F Temperature Source Temporal Oral Pulse Rate 65 65 Respiratory Rate 18 18 Blood Pressure 132/69 H 121/55 H Blood Pressure Mean 90 77 Pulse Ox 93 93 92 Oxygen Delivery Method Room Air Room Air Room Air 10/03/24 13:44 10/03/24 13:44 10/03/24 13:47 Temperature 97.9 F Temperature Source Oral Pulse Rate 62 62 Respiratory Rate 23 H 21 H Blood Pressure 123/60 H Blood Pressure Mean 81 Pulse Ox 93 Oxygen Delivery Method Room Air Room Air 10/03/24 14:00 10/03/24 14:05 10/03/24 15:00 Temperature 97.9 F Temperature Source Oral Pulse Rate 60 60 64 Respiratory Rate 21 H 26 H 24 H Blood Pressure 135/63 H Blood Pressure Mean 87 Pulse Ox 92 Oxygen Delivery Method Room Air Weight Weight: 71.2 kg Body Mass Index (BMI) 23.8 Physical Exam Narrative General: Alert, answering questions appropriately HEENT: Atraumatic, normocephalic Eyes: Anicteric, normal conjunctiva, extraocular movements grossly intact Neck: Supple Respiratory: Increased respiratory effort with diffuse wheezing and diminished at the bases Cardiovascular: Regular rate and rhythm GI: Soft, nontender, nondistended Extremities: No edema Musculoskeletal: Moving all extremities, does have pain on right lower back reproduced with palpation Neuro: No overt focal neurological deficits Skin: No rashes appreciated Psych: Cooperative Results Lab / Micro Data 10/03/24 13:30 10/03/24 13:30 Labs: Laboratory Results - last 24 hr 10/03/24 13:30: WBC 6.6, RBC 3.58 L, Hgb 12.1 L, Hct 34.4 L, MCV 96.1 H, MCH 33.8 H, MCHC 35.2 D, RDW Std Deviation 47.9 H, RDW Coeff of Yara 13.5, Plt Count 252, MPV 10.1, Immature Gran % (Auto) 0.600, Neut % (Auto) 79.1 H, Lymph % (Auto) 12.5 L, [place] % (Auto) 7.5, Eos % (Auto) 0.0, Baso % (Auto) 0.3, Absolute Neuts (auto) 5.2, Absolute Lymphs (auto) 0.82 L, Nucleated RBC % 0, PT 15.5 H, INR 1.2, APTT 30.5, Sodium 132 L, Potassium 4.3, Chloride 100, Carbon Dioxide 25.0, Anion Gap 7, BUN 22 H, Creatinine 1.36 H, Estim Creat Clear Calc 40.51, Est GFR (MDRD) Af Amer 64, Est GFR (MDRD) Non-Af 53 L, BUN/Creatinine Ratio 16.2, Glucose 386 H, Lactic Acid 1.5, Calcium 8.6, Total Bilirubin 0.40, AST 13 L, ALT 12 L, Alkaline Phosphatase 62, Total Protein 7.2, Albumin 2.8 L, Globulin 4.4 H, Albumin/Globulin Ratio 0.6 L 10/03/24 14:04: Urine Color Yellow, Urine Clarity Clear, Urine pH 6.0, Ur Specific [place] 1.010, Urine Protein Negative, Urine Glucose (UA) 1000 H, Urine Ketones Negative, Urine Occult Blood 10 H, Urine Nitrite Negative, Urine Bilirubin Negative, Urine Urobilinogen Normal, Ur Leukocyte Esterase Negative, Urine RBC 0 SEEN, Urine WBC 0 SEEN, Ur Squamous Epith Cells 0 SEEN, Urine Bacteria 0 SEEN, Urine Mucus 0 SEEN Imaging Radiology Impression Abdomen/Pelvis CT 10/03/24 13:20 IMPRESSION: 1. Small right pleural effusion with mild compression atelectasis of the right lower lobe. 2. Cholelithiasis. 3. Mild right hydronephrosis and hydroureter improved from prior exam. 4. 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 Electronically Signed: Trey Gan MD at 14:12 EST Reading Location ID and State: [facility] / [place] Tel , Service support , Assessment & Plan Assessment/Plan (1) Blood bacterial culture positive: PLAN: Plan # Positive blood culture -Patient with positive blood culture at [facility], reportedly growing gram-positive cocci in clusters -Could be coag negative staph contaminant, will need to follow-up on sensitivities and speciation -White blood cell count within normal limits but does have left shift -Will repeat blood culture and urine cultures -Given patient's symptoms and is unclear if he has true active infection will treat empirically with antibiotics for now #Acute exacerbation of COPD -Patient with significant wheezing that is worsened over the past week and has cough with sputum production and shortness of breath -Admit to floor, continuous O2 monitoring -Chest x-ray: To be ordered ?COVID ordered, obtain respiratory panel, sputum culture if able -O2 in place, wean as tolerated -IV methylprednisone -Scheduled DuoNebs -Albuterol prn -Incentive spirometer -Mucinex # Back pain and generalized weakness -Back pain seems to be musculoskeletal in nature and is reproducible on exam -Tylenol -Topical lidocaine patch -PT/OT -Case management -Will check TSH and B12 as well # History of prostate and bladder cancer with urostomy -Had TURP in 2020, also has urostomy now # CKD stage III a -Appears to be at baseline -Avoid nephrotoxic agents -Daily BMPs #Type 2 diabetes mellitus -Glucose checks and sliding scale insulin -Hold home oral hypoglycemics # History of coronary artery disease -With CABG x 4 -Continue simvastatin and fenofibrate # Parkinson's -Continue primidone -Continue carbidopa levodopa #Depression/anxiety -Continue home medications #Tobacco use -Advise cessation -Nicotine replacement available if desired #DVT ppx: maame Wilkinson MD Charges/Coding Visit Charges Inpatient E&M: 88967 Init Hosp L2
--- NOTE | 2024-10-03 16:00 | RAD_ITS ---
EXAM: XR CHEST, 1 VIEW CLINICAL INDICATION: SOB TECHNIQUE: Frontal view of the chest. COMPARISON: XR Chest dated 08/07/2024 FINDINGS: LUNGS AND PLEURAL SPACES: Normal. No consolidation or edema. No pneumothorax. No effusion. HEART: Surgical changes of coronary artery bypass graft (CABG). Normal heart size. MEDIASTINUM: No mediastinal or hilar mass. BONES/JOINTS: No acute abnormality. TUBES, LINES AND DEVICES: Right IJ infusion catheter remains in place. RAD/Chest 1 View (Portable) IMPRESSION: No acute cardiopulmonary abnormality. No interval change. Electronically Signed: Trey Gan MD at 16:27 EST ,
--- NOTE | 2024-10-03 16:36 | PCM.RX.CS ---
Consult Antibiotic Management Pharmacy has been consulted to manage selected antibiotic: Vancomycin Type of Intervention Type of Consult: New start Suspected Infection Suspected Infection: Bacteremia Labs Labs: Sodium 132 mmol/L (136-145) L 10/03/24 13:30 Potassium 4.3 mmol/L (3.5-5.1) 10/03/24 13:30 Chloride 100 mmol/L (98-107) 10/03/24 13:30 Carbon Dioxide 25.0 mmol/L (21.0-32.0) 10/03/24 13:30 Anion Gap 7 (5-15) 10/03/24 13:30 BUN 22 mg/dL (7-18) H 10/03/24 13:30 Creatinine 1.36 mg/dL (0.70-1.30) H 10/03/24 13:30 Est GFR (MDRD) Af Amer 64 mL/min (>60) 10/03/24 13:30 Est GFR (MDRD) Non-Af 53 mL/min (>60) L 10/03/24 13:30 BUN/Creatinine Ratio 16.2 RATIO (10-20) 10/03/24 13:30 Glucose 386 mg/dL (74-106) H 10/03/24 13:30 Estimated Creatinine Clearance Estimated Creatinine Clearance: 40.51 Goal Trough Goal Trough: 15-20 mcg/mL Pharmacy Plan for Drug Dosing Pharmacy Plan for Drug Dosing: NEW START IV VANCOMYCIN Consulting Physician: Dr. Wilkinson Indication: Bacteremia Goal Trough: 15-20 SrCr: 1.36 CrCl: 40.51 ml/min Comments: Received 1750mg x1 dose in ED @ 14:48 10/03/24 Vancomycin Dose: 750mg Q12H to start @ 03:00 10/04/24 Pending Level: Vancomycin trough @ 02:30 10/05/24 Pharmacy Service will continue to monitor and adjust dosing as required. Follow-Up Labs Follow-Up Labs: Trough: Vancomycin (10/05/24 @ 0230)
[2024-10-03] MEDS: 0.9% Normal Saline (1000mL) 1,000 ML 50 ML IV (16:49)
[2024-10-03] MEDS: Insulin Lispro 100 UNIT/ML INSULN.PEN SC ×2 (16:50→20:41)
[2024-10-03 17:10] LABS: Bedside Glucose 284 mg/dL (74-106)
[2024-10-03] MEDS: Senna/Docusate Sodium 1 Tablet 2 TABLET PO (17:19)
[2024-10-03] MEDS: Albuterol 2.5 MG/3 ML VIAL.NEB. INHALATION (19:55)
[2024-10-03] MEDS: Acetaminophen 500 MG Tablet 1000 MG PO (20:40)
[2024-10-03] MEDS: Primidone 250 MG Tablet PO (20:40)
[2024-10-03] MEDS: Carbidopa/Levodopa 25/100 Tablet PO (20:41)
[2024-10-03] MEDS: Atorvastatin Calcium 20 MG Tablet PO (20:41)
[2024-10-03] MEDS: guaiFENesin 1,200 MG Tablet 1200 MG PO (20:41)
[2024-10-03] MEDS: DULoxetine Hcl 60 MG Capsule PO (20:41)
[2024-10-03] MEDS: Topiramate 50 MG Tablet PO (20:41)
[2024-10-03] MEDS: Gabapentin 800 MG Tablet 400 MG PO (20:41)
[2024-10-03 21:07] LABS: Bedside Glucose 257 mg/dL (74-106)
[2024-10-04] VITALS (10 sets, daily range): BP systolic 125–151; BP diastolic 54–77; PULSE 57–74; RESP 16–24; TEMP 36.6–36.8; O2SAT 92–100
[2024-10-04] MEDS: Vancomycin HCl 750 MG in 0.9% Normal Saline (250mL Bag) 250 ML 250 MG IV (03:36)
[2024-10-04] MEDS: Ipratropium/Albuterol Sulfate 3 ML AMPUL.NEB INHALATION ×6 (03:47→23:23)
[2024-10-04 06:23] LABS: Absolute Lymphocyte Count 1.51 X10^3/uL (0.83-4.51); Absolute Neutrophil Count 4.4 X10^3/uL (2.0-7.7); Basophil# 0.03 X10^3/uL; Basophil% 0.4 % (0-1); Eosinophil# 0.04 X10^3/uL; Eosinophils% 0.6 % (0-5); Hematocrit 33.2 % (40-54); Hemoglobin 10.8 g/dL (13.0-16.5); Lymphocyte # 1.51 X10^3/ul (0.83-4.51); Lymphocyte % 22.4 % (19-41); Mean Corp Hgb Conc 32.5 g/dL (32-36); Mean Corpuscular Hgb 31.6 pg (27.0-32.0); Mean Corpuscular Volume 97.1 fL (80-94); Monocyte# 0.75 X10^3/uL; Monocyte% 11.1 % (0-10); NRBC Flagged by Analyzer 0 % (0-5); Neutrophil # 4.39 X10^3/uL (2.7-7.7); Neutrophil % 65.2 % (47-70); Platelet Count 221 K/mm3 (150-450); RBC Distribution Width CV 13.8 % (11.6-14.6); Red Blood Count 3.42 M/mm3 (4.6-6.2); White Blood Count 6.7 K/mm3 (4.4-11.0)
[2024-10-04] MEDS: Acetaminophen 500 MG Tablet 1000 MG PO ×3 (06:35→22:18)
[2024-10-04] MEDS: Gabapentin 800 MG Tablet 400 MG PO ×3 (06:35→22:25)
[2024-10-04] MEDS: Primidone 250 MG Tablet PO ×3 (06:35→22:17)
[2024-10-04] MEDS: Insulin Lispro 100 UNIT/ML INSULN.PEN SC ×4 (06:37→22:32)
[2024-10-04 07:02] LABS: Bedside Glucose 219 mg/dL (74-106)
[2024-10-04 07:09] LABS: ALB/GLOB Ratio 0.7 RATIO (0.9-2.4); AST(SGOT) 15 U/L (15-37); Alanine Aminotransfer ALT/SGPT 10 U/L (16-61); Albumin, Serum 2.7 g/dL (3.2-5.0); Alkaline Phosphatase 49 U/L (45-117); Anion Gap 7 (5-15); BUN 21 mg/dL (7-18); BUN/Creat Ratio 19.3 RATIO (10-20); Calcium,Total 8.4 mg/dL (8.5-10.1); Chloride 103 mmol/L (98-107); Creatinine, Serum 1.09 mg/dL (0.70-1.30); EST Glomerular Filtration Rate 69 mL/min (>60); Est Glom Filt Rate - Afr Amer 83 mL/min (>60); Estimated Creatinine Clearance 62.08 ml/min; Globulin 3.9 g/dL (2.2-4.2); Glucose 206 mg/dL (74-106); Potassium 3.5 mmol/L (3.5-5.1); Protein, Total 6.6 g/dL (6.4-8.2); Sodium Level 133 mmol/L (136-145)
--- NOTE | 2024-10-04 07:16 | PN.HOSP_ITS ---
Reason for Visit Reason for Visit: Diagnoses Bacteremia (10/03/24) Subjective Subjective Patient with no acute events overnight per self and per nursing report. He notes he does feel better and his breathing is eased with no current wheezing. Discussed plan of care with continued treatment of COPD exacerbation which appears to be improving but also need to assure blood cultures remain unremarkable given outside facility had a positive culture with gram-positive cocci and it was unclear if this was potentially a contaminant. Patient denies fevers, chills, nausea, emesis, abdominal pain, chest pain. Objective Data Objective Data Vital Signs: Vital Signs Temp Pulse Resp BP Pulse Ox O2 Del Method 98.3 F 58 L 18 136/67 H 92 Room Air 10/04/24 03:38 10/04/24 03:47 10/04/24 03:47 10/04/24 03:38 10/04/24 03:47 10/04/24 03:47 Oxygen Delivery Method Room Air Weight: 236 lb 12.423 oz Body Mass Index (BMI) 36.0 Intake & Output: Intake and Output for Last 24 Hours 10/02/24 10/03/24 10/04/24 23:59 23:59 23:59 Intake Total 585 / 585 805 / 805 Output Total 750 / 750 450 / 450 Balance -165 / -165 355 / 355 Lab / Micro Data 10/04/24 05:25 10/04/24 05:25 Labs: Laboratory Results - last 24 hr 10/03/24 13:30: WBC 6.6, RBC 3.58 L, Hgb 12.1 L, Hct 34.4 L, MCV 96.1 H, MCH 33.8 H, MCHC 35.2 D, RDW Std Deviation 47.9 H, RDW Coeff of Yara 13.5, Plt Count 252, MPV 10.1, Immature Gran % (Auto) 0.600, Neut % (Auto) 79.1 H, Lymph % (Auto) 12.5 L, [place] % (Auto) 7.5, Eos % (Auto) 0.0, Baso % (Auto) 0.3, Absolute Neuts (auto) 5.2, Absolute Lymphs (auto) 0.82 L, Nucleated RBC % 0, PT 15.5 H, INR 1.2, APTT 30.5, Sodium 132 L, Potassium 4.3, Chloride 100, Carbon Dioxide 25.0, Anion Gap 7, BUN 22 H, Creatinine 1.36 H, Estim Creat Clear Calc 40.51, Est GFR (MDRD) Af Amer 64, Est GFR (MDRD) Non-Af 53 L, BUN/Creatinine Ratio 16.2, Glucose 386 H, Lactic Acid 1.5, Calcium 8.6, Total Bilirubin 0.40, AST 13 L, ALT 12 L, Alkaline Phosphatase 62, Total Protein 7.2, Albumin 2.8 L, Globulin 4.4 H, Albumin/Globulin Ratio 0.6 L 10/03/24 14:04: Urine Color Yellow, Urine Clarity Clear, Urine pH 6.0, Ur Specific [place] 1.010, Urine Protein Negative, Urine Glucose (UA) 1000 H, Urine Ketones Negative, Urine Occult Blood 10 H, Urine Nitrite Negative, Urine Bilirubin Negative, Urine Urobilinogen Normal, Ur Leukocyte Esterase Negative, Urine RBC 0 SEEN, Urine WBC 0 SEEN, Ur Squamous Epith Cells 0 SEEN, Urine Bacteria 0 SEEN, Urine Mucus 0 SEEN 10/03/24 16:47: POC Glucose 284 H 10/03/24 20:37: POC Glucose 257 H 10/04/24 05:25: WBC 6.7, RBC 3.42 L, Hgb 10.8 L, Hct 33.2 L, MCV 97.1 H, MCH 31.6, MCHC 32.5 D, RDW Std Deviation 49.0 H, RDW Coeff of Yara 13.8, Plt Count 221, MPV 10.0, Immature Gran % (Auto) 0.300, Neut % (Auto) 65.2, Lymph % (Auto) 22.4, [place] % (Auto) 11.1 H, Eos % (Auto) 0.6, Baso % (Auto) 0.4, Absolute Neuts (auto) 4.4, Absolute Lymphs (auto) 1.51, Nucleated RBC % 0, Sodium 133 L, Potassium 3.5, Chloride 103, Carbon Dioxide 24.0, Anion Gap 7, BUN 21 H, Creatinine 1.09, Estim Creat Clear Calc 62.08, Est GFR (MDRD) Af Amer 83, Est GFR (MDRD) Non-Af 69, BUN/Creatinine Ratio 19.3, Glucose 206 H, Calcium 8.4 L, Total Bilirubin 0.50, AST 15, ALT 10 L, Alkaline Phosphatase 49, Total Protein 6.6, Albumin 2.7 L, Globulin 3.9, Albumin/Globulin Ratio 0.7 L, TSH 2.830 10/04/24 06:37: POC Glucose 219 H Micro: Microbiology 10/03/24 17:37 Mucosa - Nasopharyngeal Respiratory Panel (PCR) - Final 10/03/24 16:18 Nasal Secretion SARS-CoV-2 Antigen (Rapid) - Final Radiography Diagnostic Testing: Radiology Impression Abdomen/Pelvis CT 10/03/24 13:20 IMPRESSION: 1. Small right pleural effusion with mild compression atelectasis of the right lower lobe. 2. Cholelithiasis. 3. Mild right hydronephrosis and hydroureter improved from prior exam. 4. 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 Electronically Signed: Trey Gan MD at 14:12 EST Reading Location ID and State: [facility] / [place] Tel , Service support , Chest X-Ray 10/03/24 16:00 IMPRESSION: No acute cardiopulmonary abnormality. No interval change. Electronically Signed: Trey Gan MD at 16:27 EST , Physical Exam Narrative Physical Examination: General: Awake, alert, oriented x 3 and cooperative, seated upright in MS bed, fatigued but notes he is feeling improved since initial presentation, less dyspneic and no wheezing. Skin: Normal color, normal turgor, no icterus, no cyanosis except very staged ecchymoses, abrasions. HEENT: AT/NC, EOMI, PERRLA, MMM. Lungs: Diminished, greater bases, occasional end expiratory wheeze but not severe, no evidence of any distress, no rales or rhonchi. Heart: Regular rate and rhythm; no gallop, rub audible. Abdomen: Soft, obese, NTTP, ND, normal BS, right lower quadrant presence of urostomy tube with bag in place. Extremities: No cyanosis, no clubbing, mild bilateral pedal to distal novoa edema bilaterally. Neurological: Patient awake, alert, oriented as noted, cognitive function intact; pupils equally reactive to light and accommodation, cranial nerves gross normal, moving all 4 extremities, no focal deficits, strength moderately to severely globally decreased Psychiatric: Affect appears fatigued otherwise normal, no acute evidence of depressive or anxiety feelings. Assessment & Plan Assessment/Plan (1) Blood bacterial culture positive: PLAN: Plan The patient is an 84 y/o M w/ PMHx: Obesity, CKD stage IIIa, Chronic anemia, HTN, HLD, CAD s/p CABG x 4, Parkinson's disease, Hx Prostate and Bladder CA s/p resection with urostomy in place, COPD, Tobacco use, Anxiety and Depression, Diabetes mellitus type II who presents to the [facility] ED on 10/04/24 with history of weakness, back discomfort, intermittent confusion, coughing and shortness of breath with also incidentally noted positive blood culture with gram-positive cocci in clusters at outside facility. #1. Acute on Chronic COPD exacerbation: Admitted to medical surgical floor given stable vital signs upon presentation, currently on room air however if necessary will maintain on oxygen and wean to room air as able, maintain on ATC duonebs, PRN albuterol, IV methylprednisolone, HOB, IS parameters, Rapid SARS COVID-negative, full respiratory viral panel negative, sputum culture with rare WBC, 1+ epithelial cell, 3+ gram-positive cocci in chains and clusters. #2. Possible bacteremia versus contaminant: Patient with positive blood culture at [facility] reportedly growing gram-positive cocci in clusters, possibly coag negative staph contaminant, repeat blood cultures upon current presentation x 2 pending, no WBC elevation and no marked shift noted, urinalysis not marked, will await repeat cultures and in the interim will maintain on IV vancomycin with de-escalation off soon as able. #3. Persistent back pain, lumbar highly suspicious for musculoskeletal in etiology is reproducible on exam: To be cautious in the ED patient did have CT abdomen and pelvis without contrast with small right pleural effusion with mild compressive atelectasis of the right lower lobe, cholelithiasis, mild right hydronephrosis and hydroureter which improved from previously with surgical changes of urinary cystectomy with ileal loop diversion otherwise no acute findings. Will continue as needed Tylenol, offloading, topical lidocaine patch, TSH 2.830 normal level, B12 still pending. Will continue PT/OT/case management consultation for discharge planning. #4. CAD: Status post CABG x 4, will continue baby aspirin, statin, not on beta- melinda therapy for unclear reasons possibly secondary to his underlying COPD, will continue home losartan regimen with BP monitoring. #5. History of bladder cancer as well as prostate cancer status post surgical resection with urostomy: CT abdomen pelvis in the ED with no acute findings with noted mild right hydronephrosis and hydroureter improved from previous with surgical changes of urinary cystectomy with ileal loop diversion status post TURP in 2020 with then urostomy, urinalysis is unremarkable. #6. Chronic Kidney Disease Stage IIIa: Admission BUN/Cr 22/1.36, GFR 53, baseline renal function primarily 1.0-1.3, 10/04/2024 BUN/creatinine 21/1.09, GFR 69 repeat BMP in AM. #7. Chronic macrocytic anemia: Admission hemoglobin 12.1, MCV 96.1, baseline hemoglobin more recently has appeared 12 range, 10/04/2024 CBC with hemoglobin 10.8, MCV 97.1, continue to trend. #8. Parkinson's disease: We will continue patient home primidone as well as topiramate for tremors in addition to Sinemet, maintain on fall precautions, PT/OT/case management consulted for discharge planning. #9. Anxiety and depression: We will continue patient home duloxetine regimen. #10. Tobacco Abuse: Encouraged cessation, inpatient consultation per RT, NR if desired. #11. Diabetes mellitus type II: Hold oral home regimen, ADA diet, accu checks w/ ISS. #12. Obesity: Weight loss and lifestyle changes encouraged. #13. DVT prophylaxis: Lovenox. #14. CODE STATUS: Full Code status. Charges/Coding Visit Charges Inpatient E&M: 47143 Subs Hosp L3
[2024-10-04] MEDS: Enoxaparin 40 MG/0.4 ML Syringe SC (10:49)
[2024-10-04] MEDS: Carbidopa/Levodopa 25/100 Tablet PO ×2 (10:50→22:17)
[2024-10-04] MEDS: guaiFENesin 1,200 MG Tablet 1200 MG PO ×2 (10:50→22:19)
[2024-10-04] MEDS: Topiramate 50 MG Tablet PO ×2 (10:50→22:20)
[2024-10-04] MEDS: DULoxetine Hcl 60 MG Capsule PO ×2 (10:50→22:19)
[2024-10-04] MEDS: Lidocaine 5% Patch 1 PATCH TOPICAL (10:51)
[2024-10-04] MEDS: Vancomycin HCl 1,250 MG in 0.9% Normal Saline (250mL Bag) 250 ML 167 MG IV ×2 (10:52→22:34)
[2024-10-04] MEDS: Fenofibrate 145 MG Tablet PO (11:01)
--- NOTE | 2024-10-04 13:35 | CASEMGMT ---
RN CM Face to Face with patient for initial transition planning/care coordination assessment. RN CM introduced self and role at [facility]. Patient lying in bed, alert and oriented, and brother at bedside. Patient willing to participate in assessment and is able to answer all questions appropriately. Care providers, pharmacy, and demographics verified. Strata: 3 PCP: Julio César Specialists: Melani Estes, loom winder tender; Kit, urologist Preferred Pharmacy: [facility] Insurance: [facility] [place] Prescription Benefit: yes Living Will/HPOA: yes, Heide Cramer LNOK: , granddaughter Living Arrangements: Patient lives with in a mobile home with 4 steps or ramp to enter the home. Patient states he is independent at home. Transportation: self, DME/HHC: Patient has shower chair, raised toilet, cane, grab bars, rollator, cpap, nebulizer, pulse ox at home. No previous SNF. Patient has had HHC in the past but could not recall agency. Patient wishes to discharge home, denies need for home health at this time. Patient states he has no further needs or concerns at this time. CM to follow for discharge planning needs that may arise. Disposition Plan: Patient wishes to discharge home with family support and follow-up plans in place. Halima GAMINO, RN, CM
[2024-10-04 17:27] LABS: Bedside Glucose 284 mg/dL (74-106)
[2024-10-04 21:26] LABS: Bedside Glucose 285 mg/dL (74-106)
[2024-10-04] MEDS: Atorvastatin Calcium 20 MG Tablet PO (22:18)
[2024-10-04 23:02] LABS: Bedside Glucose 235 mg/dL (74-106)
[2024-10-04] MEDS: 0.9% Saline Lock 10 ML Syringe IV (23:07)
[2024-10-05] VITALS (9 sets, daily range): BP systolic 122–148; BP diastolic 56–84; PULSE 56–76; RESP 16–20; TEMP 36.4–36.6; O2SAT 91–96
[2024-10-05] MEDS: Ipratropium/Albuterol Sulfate 3 ML AMPUL.NEB INHALATION ×5 (02:52→19:35)
[2024-10-05] MEDS: 0.9% Saline Lock 10 ML Syringe IV ×2 (05:18→21:41)
[2024-10-05] MEDS: Gabapentin 400 MG Capsule PO ×3 (05:33→21:47)
[2024-10-05] MEDS: Primidone 250 MG Tablet PO ×3 (05:33→21:49)
[2024-10-05] MEDS: Acetaminophen 500 MG Tablet 1000 MG PO ×3 (05:33→21:47)
[2024-10-05] MEDS: Insulin Lispro 100 UNIT/ML INSULN.PEN SC ×4 (06:47→21:49)
--- NOTE | 2024-10-05 06:59 | PCM.PN.HOSP ---
Reason for Visit Reason for Visit: Diagnoses Bacteremia (10/03/24) Subjective Subjective Patient denies any acute event overnight per self and also per nursing report. He notes feeling improved with greater ease of breathing and no wheezing. Patient currently transitioned off supplementation oxygen. Discussed current situation with repeat blood culture at our facility with gram-positive cocci with final results pending currently maintained on IV vancomycin. Discussed that given he had a culture at another facility and 1 here lower suspicion that it could be a contaminant now at this point with unclear exact source. Discussed plan to obtain urinalysis, urine culture and echocardiogram. Patient denies fevers, chills, nausea, emesis, abdominal pain, chest pain. Objective Data Objective Data Vital Signs: Vital Signs Temp Pulse Resp BP Pulse Ox O2 Del Method 97.7 F L 61 18 138/84 H 95 Room Air 10/05/24 05:30 10/05/24 05:30 10/05/24 05:30 10/05/24 05:30 10/05/24 05:30 10/05/24 05:49 Oxygen Delivery Method Room Air Weight: 236 lb 12.423 oz Body Mass Index (BMI) 36.0 Intake & Output: Intake and Output for Last 24 Hours 10/03/24 10/04/24 10/05/24 23:59 23:59 23:59 Intake Total 585 / 585 1080 / 1080 475 / 475 Output Total 750 / 750 2049 / 2049 1150 / 1150 Balance -165 / -165 -970 / -970 -675 / -675 Lab / Micro Data 10/05/24 10:00 10/05/24 10:00 Labs: Laboratory Results - last 24 hr 10/04/24 05:25: Sodium 133 L, Potassium 3.5, Chloride 103, Carbon Dioxide 24.0, Anion Gap 7, BUN 21 H, Creatinine 1.09, Estim Creat Clear Calc 62.08, Est GFR (MDRD) Af Amer 83, Est GFR (MDRD) Non-Af 69, BUN/Creatinine Ratio 19.3, Glucose 206 H, Calcium 8.4 L, Total Bilirubin 0.50, AST 15, ALT 10 L, Alkaline Phosphatase 49, Total Protein 6.6, Albumin 2.7 L, Globulin 3.9, Albumin/Globulin Ratio 0.7 L, TSH 2.830 11/09/24 06:37: POC Glucose 219 H 11/09/24 11:00: POC Glucose 284 H 10/04/24 16:14: POC Glucose 285 H 10/04/24 22:31: POC Glucose 235 H Micro: Microbiology 10/03/24 13:30 Blood Culture (Wb) - Anticubital Left Bacteria Detection (PCR) - Final Staphylococcus aureus 10/03/24 13:30 Blood Culture (Wb) - Anticubital Left Blood Culture - Preliminary 10/04/24 09:00 Sputum, Expectorated/Coughed Gram Stain - Final 10/03/24 17:37 Mucosa - Nasopharyngeal Respiratory Panel (PCR) - Final 10/03/24 16:18 Nasal Secretion SARS-CoV-2 Antigen (Rapid) - Final Physical Exam Narrative Physical Examination: General: Awake, alert, oriented x 3 and cooperative, seated upright in MS bed, improved appearance since day prior, currently off supplemental oxygen, denies any complaints. Skin: Normal color, normal turgor, no icterus, no cyanosis except very staged ecchymoses, abrasions. HEENT: AT/NC, EOMI, PERRLA, MMM. Lungs: Diminished although improved movement, no wheezing currently, no evidence of any distress, improved effort, no rales or rhonchi. Heart: Regular rate and rhythm; no gallop, rub audible. Abdomen: Soft, obese, NTTP, ND, normal BS, right lower quadrant presence of urostomy tube with bag in place. Extremities: No cyanosis, no clubbing, mild bilateral pedal to distal novoa edema bilaterally. Neurological: Patient awake, alert, oriented as noted, cognitive function intact; pupils equally reactive to light and accommodation, cranial nerves gross normal, moving all 4 extremities, no focal deficits, strength improved, moderately to severely globally decreased Psychiatric: Affect appears less fatigued, normal, no acute evidence of depressive or anxiety feelings. Assessment & Plan Assessment/Plan (1) Blood bacterial culture positive: PLAN: Plan The patient is an 84 y/o M w/ PMHx: Obesity, CKD stage IIIa, Chronic anemia, HTN, HLD, CAD s/p CABG x 4, Parkinson's disease, Hx Prostate and Bladder CA s/p resection with urostomy in place, COPD, Tobacco use, Anxiety and Depression, Diabetes mellitus type II who presents to the [facility] ED on 10/04/24 with history of weakness, back discomfort, intermittent confusion, coughing and shortness of breath with also incidentally noted positive blood culture with gram-positive cocci in clusters at outside facility. #1. Acute on Chronic COPD exacerbation: Admitted to medical surgical floor given stable vital signs upon presentation, weaned to room air, maintain on ATC duonebs, PRN albuterol, IV methylprednisolone, HOB, IS parameters, Rapid SARS COVID-negative, full respiratory viral panel negative, sputum culture with rare WBC, 1+ epithelial cell, 3+ gram-positive cocci in chains and clusters however preliminarily noted respiratory culture appearance of normal wendie. #2. Acute Gram-positive cocci bacteremia, unclear source: Patient with positive blood culture at [facility] reportedly growing gram-positive cocci in clusters, requested follow-up on cultures from their facility to clarify exact organisms and sensitivities, repeat blood cultures [facility] with preliminary gram-positive cocci thus suspect that unfortunately this is a true positive given 2 different facilities. Will continue IV vancomycin. Will request additional evaluation with UA/UCX and echocardiogram. If these are unremarkable given persistent back discomfort although there is musculoskeletal to certain involvement may need to consider imaging. May consider infectious disease involvement pending further workup. #3. Persistent back pain, lumbar highly suspicious for musculoskeletal in etiology is reproducible on exam: To be cautious in the ED patient did have CT abdomen and pelvis without contrast with small right pleural effusion with mild compressive atelectasis of the right lower lobe, cholelithiasis, mild right hydronephrosis and hydroureter which improved from previously with surgical changes of urinary cystectomy with ileal loop diversion otherwise no acute findings. Will continue as needed Tylenol, offloading, topical lidocaine patch, TSH 2.830 normal level, B12 still pending. Will continue PT/OT/case management consultation for discharge planning. #4. CAD: Status post CABG x 4, will continue baby aspirin, statin, not on beta-melinda therapy for unclear reasons possibly secondary to his underlying COPD, will continue home losartan regimen with BP monitoring. #5. History of bladder cancer as well as prostate cancer status post surgical resection with urostomy: CT abdomen pelvis in the ED with no acute findings with noted mild right hydronephrosis and hydroureter improved from previous with surgical changes of urinary cystectomy with ileal loop diversion status post TURP in 2020 with then urostomy, urinalysis is unremarkable. UA/UCX requested from urostomy. #6. Chronic Kidney Disease Stage IIIa: Admission BUN/Cr 22/1.36, GFR 53, baseline renal function primarily 1.0-1.3, 10/04/2024 BUN/creatinine 21/1.09, GFR 69 repeat BMP in AM. #7. Chronic macrocytic anemia: Admission hemoglobin 12.1, MCV 96.1, baseline hemoglobin more recently has appeared 12 range, 10/05/2024 hemoglobin 11.6, MCV 95.3, continue to trend. #8. Parkinson's disease: We will continue patient home primidone as well as topiramate for tremors in addition to Sinemet, maintain on fall precautions, PT/OT/case management consulted for discharge planning. #9. Anxiety and depression: We will continue patient home duloxetine regimen. #10. Tobacco Abuse: Encouraged cessation, inpatient consultation per RT, NR if desired. #11. Diabetes mellitus type II: Hold oral home regimen, ADA diet, accu checks w/ ISS. #12. Obesity: Weight loss and lifestyle changes encouraged. #13. DVT prophylaxis: Lovenox. #14. CODE STATUS: Full Code status. Charges/Coding Visit Charges Inpatient E&M: 55769 Subs Hosp L3
[2024-10-05 07:08] LABS: Bedside Glucose 281 mg/dL (74-106)
[2024-10-05] MEDS: Lidocaine 5% Patch 1 PATCH TOPICAL (09:02)
[2024-10-05] MEDS: DULoxetine Hcl 60 MG Capsule PO ×2 (09:02→21:50)
[2024-10-05] MEDS: Fenofibrate 145 MG Tablet PO (09:02)
[2024-10-05] MEDS: Carbidopa/Levodopa 25/100 Tablet PO ×2 (09:02→21:48)
[2024-10-05] MEDS: Topiramate 50 MG Tablet PO ×2 (09:03→21:47)
[2024-10-05] MEDS: guaiFENesin 1,200 MG Tablet 1200 MG PO ×2 (09:03→21:48)
[2024-10-05] MEDS: Enoxaparin 40 MG/0.4 ML Syringe SC (09:03)
[2024-10-05] MEDS: Losartan Potassium 25 MG Tablet PO (09:06)
[2024-10-05] MEDS: Senna/Docusate Sodium 1 Tablet 2 TABLET PO (09:06)
[2024-10-05] MEDS: Aspirin 81 MG TAB.CHEW PO (09:06)
[2024-10-05 10:12] LABS: Absolute Lymphocyte Count 0.69 X10^3/uL (0.83-4.51); Absolute Neutrophil Count 5.9 X10^3/uL (2.0-7.7); Basophil# 0.04 X10^3/uL; Basophil% 0.6 % (0-1); Eosinophil# 0.01 X10^3/uL; Eosinophils% 0.1 % (0-5); Hematocrit 34.7 % (40-54); Hemoglobin 11.6 g/dL (13.0-16.5); Lymphocyte # 0.69 X10^3/ul (0.83-4.51); Mean Corp Hgb Conc 33.4 g/dL (32-36); Mean Corpuscular Hgb 31.9 pg (27.0-32.0); Mean Corpuscular Volume 95.3 fL (80-94); Mean Platelet Vol. 9.9 fl (6.2-12.0); Monocyte# 0.26 X10^3/uL; Monocyte% 3.8 % (0-10); NRBC Flagged by Analyzer 0 % (0-5); Neutrophil # 5.89 X10^3/uL (2.7-7.7); Neutrophil % 85.1 % (47-70); Platelet Count 274 K/mm3 (150-450); RBC Distribution Width CV 13.4 % (11.6-14.6); RBC Distribution Width SD 47.6 fl (35.1-43.9); Red Blood Count 3.64 M/mm3 (4.6-6.2); White Blood Count 6.9 K/mm3 (4.4-11.0)
[2024-10-05 10:40] LABS: Vancomycin, Trough Level 15.7 ug/mL (5.0-15.0)
[2024-10-05 10:44] LABS: ALB/GLOB Ratio 0.6 RATIO (0.9-2.4); AST(SGOT) 13 U/L (15-37); Alanine Aminotransfer ALT/SGPT 11 U/L (16-61); Albumin, Serum 2.7 g/dL (3.2-5.0); Alkaline Phosphatase 61 U/L (45-117); Anion Gap 8 (5-15); BUN 20 mg/dL (7-18); BUN/Creat Ratio 16.1 RATIO (10-20); Calcium,Total 9.2 mg/dL (8.5-10.1); Chloride 101 mmol/L (98-107); Creatinine, Serum 1.24 mg/dL (0.70-1.30); EST Glomerular Filtration Rate 59 mL/min (>60); Est Glom Filt Rate - Afr Amer 72 mL/min (>60); Estimated Creatinine Clearance 54.57 ml/min; Globulin 4.6 g/dL (2.2-4.2); Glucose 365 mg/dL (74-106); Potassium 4.1 mmol/L (3.5-5.1); Protein, Total 7.3 g/dL (6.4-8.2); Sodium Level 131 mmol/L (136-145)
--- NOTE | 2024-10-05 10:46 | PCM.RX.CS ---
Consult Antibiotic Management Pharmacy has been consulted to manage selected antibiotic: Vancomycin Type of Intervention Type of Consult: Follow-up Suspected Infection Suspected Infection: Bacteremia Prior Doses of Antibiotics Prior Doses of Antibiotics Received/Current Regimen: Vancomycin 1250 mg Q12H last dose given 10/04/24 @ 2234 Labs Labs: Sodium 131 mmol/L (136-145) L 10/05/24 10:00 Potassium 4.1 mmol/L (3.5-5.1) 10/05/24 10:00 Chloride 101 mmol/L (98-107) 10/05/24 10:00 Carbon Dioxide 22.0 mmol/L (21.0-32.0) 10/05/24 10:00 Anion Gap 8 (5-15) 10/05/24 10:00 BUN 20 mg/dL (7-18) H 10/05/24 10:00 Creatinine 1.24 mg/dL (0.70-1.30) 10/05/24 10:00 Est GFR (MDRD) Af Amer 72 mL/min (>60) 10/05/24 10:00 Est GFR (MDRD) Non-Af 59 mL/min (>60) L 10/05/24 10:00 BUN/Creatinine Ratio 16.1 RATIO (10-20) 10/05/24 10:00 Glucose 365 mg/dL (74-106) H 10/05/24 10:00 Vancomycin Trough 15.7 ug/mL (5.0-15.0) H 10/05/24 10:00 Microbiology Microbiology: Microbiology 10/03/24 13:30 Blood Culture (Wb) - Anticubital Left Bacteria Detection (PCR) - Final Staphylococcus aureus 10/03/24 13:30 Blood Culture (Wb) - Anticubital Left Blood Culture - Preliminary 10/04/24 09:00 Sputum, Expectorated/Coughed Gram Stain - Final 10/03/24 17:37 Mucosa - Nasopharyngeal Respiratory Panel (PCR) - Final 10/03/24 16:18 Nasal Secretion SARS-CoV-2 Antigen (Rapid) - Final Dosing Weight Weight used for dosin kg Estimated Creatinine Clearance Estimated Creatinine Clearance: ~ 62 Goal Trough Goal Trough: 15-20 mcg/mL Pharmacy Plan for Drug Dosing Pharmacy Plan for Drug Dosing: Vancomycin trough = 15.7, continue current dosing. Trough in 2 days. Pharmacy Service will continue to monitor and adjust dosing as required. Follow-Up Labs Follow-Up Labs: Trough: Vancomycin Date/Time Labs Ordered Labs to be done on [date and time ordered]: 10/07/24 @ 1000
[2024-10-05] MEDS: Vancomycin HCl 1,250 MG in 0.9% Normal Saline (250mL Bag) 250 ML 167 MG IV ×2 (11:01→21:47)
[2024-10-05] MEDS: Insulin Glargine-YFGN 100 UNIT/ML Pen 15 UNIT SC (11:41)
[2024-10-05 11:44] LABS: Bedside Glucose 373 mg/dL (74-106)
[2024-10-05 15:09] LABS: Red Blood Cells-Urine 0 SEEN /hpf (0-5); Squamous Epithelial Cells - UA 0 SEEN /hpf (0-5)
[2024-10-05 15:15] LABS: Color, Urine Yellow (Yellow); Glucose, Dipstick 1000 mg/dl (Normal); Ketone-Dipstick Negative (Negative); Leukocyte Esterase-Dipstick Negative /ul (Negative); Nitrite-Dipstick Negative (Negative); Occult Blood-Urine 10 /ul (Negative); Protein-Dipstick Negative (Negative); Specific Gravity, Urine 1.015 (1.002-1.030); Urine Bilirubin Dipstick Negative (Negative); Urine Clarity Sl. Cloudy (Clear); Urine Urobilinogen Normal (Normal); Urine pH 6.5 (5.0 - 8.0)
[2024-10-05 15:23] LABS: Bacteria RARE /hpf (None Seen); Mucous, Urine 1+ /hpf (<or=2+); White Blood Cells 0-5 SEEN /hpf (0-5)
[2024-10-05 20:01] LABS: Bedside Glucose 350 mg/dL (74-106)
[2024-10-05] MEDS: Atorvastatin Calcium 20 MG Tablet PO (21:49)
[2024-10-05 23:37] LABS: Bedside Glucose 330 mg/dL (74-106)
[2024-10-06] VITALS (9 sets, daily range): BP systolic 130–142; BP diastolic 53–72; PULSE 56–77; RESP 16–20; TEMP 36.6–36.8; O2SAT 92–97
[2024-10-06] MEDS: Gabapentin 400 MG Capsule PO ×3 (05:35→21:07)
[2024-10-06] MEDS: Acetaminophen 500 MG Tablet 1000 MG PO ×3 (05:35→21:07)
[2024-10-06] MEDS: 0.9% Saline Lock 10 ML Syringe IV ×2 (05:35→15:13)
[2024-10-06] MEDS: Primidone 250 MG Tablet PO ×3 (05:35→21:07)
--- NOTE | 2024-10-06 05:55 | ECHOCS_ITS ---
Reason For Study: ENDOCARDITIS Procedure This was a 2D Doppler, Color Flow transthoracic echocardiogram. The study was technically difficult. Contrast injection was performed. Exam performed portable in patient room. Left Ventricle Normal left ventricle. Mild concentric left ventricular hypertrophy. Left ventricular systolic function is normal. The left ventricular ejection fraction is 60 %. No regional wall motion abnormalities noted. Right Ventricle Normal RV size. Normal systolic function. Atria Normal left atrium. Normal right atrium. Mitral Valve Normal mitral valve. Tricuspid Valve Normal tricuspid valve. Aortic Valve Trisinus/trileaflet aortic valve. Mild focal aortic valve calcification. Pulmonic Valve The pulmonic valve is not well visualized. Great Vessels Mildly dilated aortic root. The pulmonary artery is normal size. Inferior vena cava collapse with respiration. Pericardium/Pleural No pericardial effusion. Medication Diluted definity 2ml given slow IV push to enhance endocardial definition. MMode/2D Measurements & Calculations LVIDd: 6.2 cm IVSd: 1.3 cm LVOT diam: 2.1 cm LVIDs: 4.1 cm LVPWd: 1.2 cm RVDd: 3.4 cm FS: 34.8 % LVOT area: 3.5 cm2 asc Aorta Diam: 4.1 cm LAV(MOD-bp): 112.0 ml LVAd ap4: 49.2 cm2 LAV(MOD-bp) Indexed: 51.1 ml/m2 LVLd ap4: 9.1 cm LAV(MOD-sp2): 109.2 ml EDV(MOD-sp4): 217.4 ml LAV(MOD-sp4): 111.1 ml EDV(sp4-el): 224.8 ml LVAs ap4: 35.7 cm2 LVLs ap4: 7.9 cm ESV(MOD-sp4): 137.7 ml ESV(sp4-el): 137.1 ml EF(MOD-sp4): 36.6 % EF(sp4-el): 39.0 % LVAd ap2: 45.2 cm2 SV(MOD-sp4): 79.7 ml SV(MOD-sp2): 99.4 ml LVLd ap2: 9.3 cm SI(MOD-sp4): 36.3 ml/m2 SI(MOD-sp2): 45.3 ml/m2 EDV(MOD-sp2): 184.4 ml EDV(sp2-el): 186.0 ml LVAs ap2: 26.0 cm2 LVLs ap2: 7.0 cm ESV(MOD-sp2): 85.0 ml ESV(sp2-el): 81.4 ml EF(MOD-sp2): 53.9 % SV(sp4-el): 87.6 ml Ao sinus diam: 4.[address] Junction: 3.3 cm LA dimension(2D): 4.7 cm LA A4 area: 30.9 cm2 RA A4 area: 20.0 cm2 TAPSE: 2.0 cm Time Measurements MV dec time: 0.22 sec Doppler Measurements & Calculations MV E max liborio: 74.2 cm/sec Lat Peak E' Liborio: 12.4 cm/sec Med Peak E' Liborio: 8.5 cm/sec MV A max liborio: 81.3 cm/sec E/E' lat: 6.0 E/E' med: 8.8 MV E/A: 0.91 MV dec slope: 335.7 cm/sec2 Ao V2 max: 153.5 cm/sec LV V1 max: 113.5 cm/sec Ao max P.4 mmHg LV V1 max P.2 mmHg Ao V2 mean: 114.5 cm/sec LV V1 mean P.1 mmHg Ao mean P.6 mmHg LV V1 mean: 86.1 cm/sec Ao V2 VTI: 35.0 cm LV V1 VTI: 25.6 cm AV (velocity ratio): 0.73 SANDHYA(I,D): 2.6 cm2 SANDHYA(V,D): 2.6 cm2 SV(LVOT): 90.2 ml PA V2 max: 99.4 cm/sec ECHO/Echo Complete W/ Contrast Interpretation Summary Normal left ventricle. Left ventricular systolic function is normal. The left ventricular ejection fraction is 60 %. Mildly dilated aortic root. Mild concentric left ventricular hypertrophy. Contrast injection was performed. Ordering Physician: Angie Perea Performed By: Yisel Duke RDCS
[2024-10-06] MEDS: Insulin Lispro 100 UNIT/ML INSULN.PEN SC ×4 (06:41→20:59)
[2024-10-06] MEDS: Ipratropium/Albuterol Sulfate 3 ML AMPUL.NEB INHALATION ×4 (06:59→20:12)
[2024-10-06 07:13] LABS: Absolute Lymphocyte Count 1.93 X10^3/uL (0.83-4.51); Absolute Neutrophil Count 4.7 X10^3/uL (2.0-7.7); Basophil# 0.05 X10^3/uL; Basophil% 0.7 % (0-1); Eosinophil# 0.06 X10^3/uL; Eosinophils% 0.8 % (0-5); Hematocrit 34.8 % (40-54); Hemoglobin 11.5 g/dL (13.0-16.5); Lymphocyte # 1.93 X10^3/ul (0.83-4.51); Lymphocyte % 27.2 % (19-41); Mean Corpuscular Hgb 31.9 pg (27.0-32.0); Mean Corpuscular Volume 96.4 fL (80-94); Mean Platelet Vol. 10.2 fl (6.2-12.0); Monocyte# 0.38 X10^3/uL; Monocyte% 5.4 % (0-10); NRBC Flagged by Analyzer 0 % (0-5); Neutrophil # 4.65 X10^3/uL (2.7-7.7); Neutrophil % 65.5 % (47-70); Platelet Count 297 K/mm3 (150-450); RBC Distribution Width CV 13.6 % (11.6-14.6); RBC Distribution Width SD 48.7 fl (35.1-43.9); Red Blood Count 3.61 M/mm3 (4.6-6.2); White Blood Count 7.1 K/mm3 (4.4-11.0)
[2024-10-06 07:13] LABS: Bedside Glucose 260 mg/dL (74-106)
[2024-10-06 07:22] LABS: ALB/GLOB Ratio 0.6 RATIO (0.9-2.4); AST(SGOT) 18 U/L (15-37); Alanine Aminotransfer ALT/SGPT 7 U/L (16-61); Albumin, Serum 2.7 g/dL (3.2-5.0); Alkaline Phosphatase 80 U/L (45-117); Anion Gap 5 (5-15); BUN 26 mg/dL (7-18); BUN/Creat Ratio 22.8 RATIO (10-20); Calcium,Total 8.8 mg/dL (8.5-10.1); Chloride 104 mmol/L (98-107); Creatinine, Serum 1.14 mg/dL (0.70-1.30); EST Glomerular Filtration Rate 65 mL/min (>60); Est Glom Filt Rate - Afr Amer 79 mL/min (>60); Estimated Creatinine Clearance 59.36 ml/min; Globulin 4.4 g/dL (2.2-4.2); Glucose 259 mg/dL (74-106); Potassium 4.9 mmol/L (3.5-5.1); Protein, Total 7.1 g/dL (6.4-8.2); Sodium Level 134 mmol/L (136-145)
[2024-10-06] MEDS: Aspirin 81 MG TAB.CHEW PO (07:54)
[2024-10-06] MEDS: Losartan Potassium 25 MG Tablet PO (07:54)
[2024-10-06] MEDS: Insulin Glargine-YFGN 100 UNIT/ML Pen 15 UNIT SC (07:54)
[2024-10-06] MEDS: DULoxetine Hcl 60 MG Capsule PO ×2 (07:54→21:07)
[2024-10-06] MEDS: guaiFENesin 1,200 MG Tablet 1200 MG PO ×2 (07:55→21:07)
[2024-10-06] MEDS: Enoxaparin 40 MG/0.4 ML Syringe SC (07:55)
[2024-10-06] MEDS: Carbidopa/Levodopa 25/100 Tablet PO ×2 (07:55→21:07)
[2024-10-06] MEDS: Topiramate 50 MG Tablet PO ×2 (07:55→21:07)
[2024-10-06] MEDS: Lidocaine 5% Patch 1 PATCH TOPICAL (07:55)
[2024-10-06] MEDS: Fenofibrate 145 MG Tablet PO (07:56)
[2024-10-06] MEDS: Senna/Docusate Sodium 1 Tablet 2 TABLET PO ×2 (07:59→21:11)
[2024-10-06 08:46] LABS: Vitamin B12 203 pg/mL (211-911)
[2024-10-06] MEDS: Vancomycin HCl 1,250 MG in 0.9% Normal Saline (250mL Bag) 250 ML 167 MG IV (11:32)
[2024-10-06 11:55] LABS: Bedside Glucose 248 mg/dL (74-106)
--- NOTE | 2024-10-06 12:07 | MRI_ITS ---
STUDY: MRI LUMBAR SPINE WITH AND WITHOUT CONTRAST REASON FOR EXAM: Male, 84 years old. Back pain, weakness and confusion. History of back surgery in 2016. Possible osteomyelitis. TECHNIQUE: Standardized fat and water weighted pulse sequences were obtained in the sagittal and axial planes. 22 mL of IV Clariscan was administered for the contrast portion of the examination. COMPARISON: MRI lumbar spine without contrast 09/09/2016. CT abdomen and pelvis without contrast 10/03/2024. FINDINGS: T11-T12: (Sagittal only). Normal T11 inferior endplate. Mild old anterior wedge compression fracture of the upper T12 vertebral body causing increased central disc space height. Decreased Modic type II degenerative vertebral marrow fat infiltration underneath the T12 inferior endplate. Normal central canal and bilateral intervertebral neuroforamina. T12-L1: Mild decrease in Modic type II degenerative vertebral marrow fatty infiltration underneath the left side of the vertebral endplates. Normal disc height. Mild ventral extradural defect due to posterior bulging annulus. No significant facet arthropathy. Normal central canal and bilateral lateral recesses. Normal bilateral intervertebral neuroforamina. Normal lumbar lordosis. There is no substantial scoliosis. Normal conus medullaris that terminates at the T12-L1 disc space level. L1-2: Modic type II degenerative vertebral marrow fat infiltration underneath the right half of the vertebral endplates more than the left half. Pronounced disc space height narrowing. No significant facet arthropathy. Mild dorsal epidural lipomatosis. Mild central canal stenosis with an AP canal diameter of 9 mm. Normal bilateral lateral recesses. Mild stenosis of the bilateral intervertebral neuroforamina due to pronounced disc space height narrowing. Interval resolution of the posterior bulging annulus into both L3 supra pedicular level foraminal zones. L2-3: Extensive Modic type II degenerative fatty marrow replacement of the vertebral bodies underneath the vertebral endplates. Pronounced disc space height narrowing. Improvement of central canal stenosis following posterior laminectomy decompression surgery. Moderate left degenerative facet arthropathy. Left lateral extradural defect due to degenerative facet arthropathy. Normal bilateral lateral recesses. Moderate stenosis of the bilateral intervertebral neuroforamina are unchanged. L3-4: Ankylosis of the vertebral bodies. Increased degenerative vertebral marrow fat infiltration involving the vertebral bodies underneath the vertebral endplates. Improvement of severe central canal stenosis following posterior laminectomy decompression surgery. No significant facet arthropathy. Normal central canal and bilateral lateral recesses. Moderate stenosis of the bilateral intervertebral neuroforamina due to pronounced disc space height narrowing and minimal osteophytic encroachment. L4-5: Modic type II degenerative vertebral marrow fat infiltration underneath the vertebral endplates. Moderate disc space height narrowing, previously mild disc space height narrowing. Improvement of severe central canal stenosis following posterior laminectomy decompression surgery. No significant facet arthropathy. Normal central canal and bilateral lateral recesses. Moderately pronounced stenosis of the right intervertebral neuroforamen and moderate stenosis of the left intervertebral neuroforamen are unchanged. L5-S1: Mild Modic type I degenerative vertebral marrow edema underneath the vertebral endplates which enhanced with IV contrast. Degenerative vacuum phenomenon inside the disc space is more obvious on CT. No obvious contrast enhancement of the disc space. Posterior marginal spur is more obvious on CT. Postsurgical absence of the spinous processes and lamina. Normal central canal and bilateral lateral recesses. Pronounced stenosis of the bilateral intervertebral neuroforamina with osteophytic impingement of both L5 nerves. These osteophytic for this confirmed on CT. This is a new finding. Degenerative cyst underneath the L5 inferior endplate. Diffuse fatty infiltration of the visualized sacral ala. Diffuse fatty infiltration of the posterior paraspinal muscles. There are no abnormally enhancing lesions intradurally and extradurally. There is minimal contrast enhancement underneath the vertebral endplates at L5-S1 disc space level due to Modic type I degenerative change. No abnormal contrast enhancement of the lumbar vertebral bodies and disks. MRI/Spine Lumbar W/WO Contrast IMPRESSION: 1. Mild L5-S1 intervertebral osteochondritis (Modic type I) which enhanced minimally with IV contrast. This is not osteomyelitis. However, there are now pronounced bilateral L5-S1 intervertebral neural foraminal stenosis with osteophytic impingement of both L5 nerves. This correlates with CT of the abdomen and pelvis of 10/03/2024. This is a new finding when compared to MRI lumbar spine of 09/09/2016. 2. Improvement of severe central canal stenosis following posterior laminectomy decompression surgery at L2-L3 down to L4-5 disc space level and improvement of mild central canal stenosis at L5-S1 disc space level. 3. Worsening of Modic type II degenerative vertebral marrow fat infiltration underneath the vertebral endplates at L2-L3 down to L4-L5 disc space levels. 4. 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 5. No MRI evidence of lumbar extruded disc fragment. 6. No other additional findings or changes. Electronically Signed: Kyle Sanches MD at 12:36 EST ,
--- NOTE | 2024-10-06 13:42 | CON.PCM.ID_ITS ---
Assessment & Plan Assessment/Plan (1) MSSA bacteremia: PLAN: MSSA (+) Bcx 09/30/24 in [facility] system. Will check repeat bcx, pending TTE. Will order MRI L spine. Unclear source of infection. Narrow abx to cefazolin. Will follow, thank you HPI Consult Data Date of Consult: 10/06/24 HPI Narrative Reason for Consultation: bacteremia HPI Narrative: AKASH GREGORY, is a 84 M with h/o prostate/bladder cancer s/p urostomy, COPD, CAD, presented 10/03 with several days fever, chills, confusion, lethargy. No recent skin infections or procedures. No change in urine. Had some associated low back pain with radiation around R flank. Only hardware is plate in ankle. Came to ED at [place], bcx sent, sent home, called back due to (+) results. Admitted on vanc and solumedrol,, feeling better. Back pain is much improved. Full ROS performed and neg except as noted above. [facility] Medical History Candidal dermatitis Candidiasis Sleep apnea Kidney disease Smoker H/O cardiovascular stress test History of left heart catheterization (~02/24/10) Cardiology follow-up encounter Port-A-Cath in place (~01/24/21) History of blood transfusion bladder instill antica agent Low back pain Primary hypertension Emphysema, unspecified Congenital stenosis and stricture of esophagus Cardiac murmur, unspecified Atherosclerotic heart disease Anemia Acute kidney failure, unspecified Gross hematuria BPH with obstruction/lower urinary tract symptoms Bladder cancer Nicotine dependence, cigarettes, uncomplicated JOHN (obstructive sleep apnea) COPD (chronic obstructive pulmonary disease) Acute PR, inferior wall CKD stage 3 Diabetes mellitus Hyperlipidemia Pulmonary HTN CAD (coronary artery disease) Diabetic neuropathy Mitral valve regurgitation Tricuspid valve regurgitation B12 deficiency Parkinson disease Pneumonia Tobacco use disorder, continuous Obesity Home Medications ?Medication ?Instructions ?Recorded ?Last Taken ?Type duloxetine 60 mg capsule,delayed 60 mg PO BID DEPRESSION 03/12/18 Unknown History release gabapentin 800 mg tablet 800 mg PO TID PARKINSONS 03/12/18 05/06/21 History omega-3 fatty acids 1,000 mg 1,000 mg PO QDAY SUPPLEMENT 03/12/18 Unknown History capsule fenofibrate 160 mg tablet 160 mg PO DAILY CHOLESTEROL 01/14/21 Unknown History glimepiride 4 mg tablet 4 mg PO DAILY DIABETIC 01/14/21 Unknown History pioglitazone 45 mg tablet (Actos) 45 mg PO DAILY DIABETES 01/14/21 Unknown History primidone 250 mg tablet 250 mg PO TID PARKINSONS 01/14/21 05/06/21 History simvastatin 40 mg tablet 40 mg PO QHS CHOLESTEROL 01/14/21 Unknown History topiramate 50 mg tablet 50 mg PO BID TREMORS 01/14/21 01/24/21 05:30 History 50 MG hydrocodone-acetaminophen 5-325mg 1 tab PO Q6H PRN Pain 03/23/21 Unknown History 5mg-325mg ipratropium 0.5 mg-albuterol 3 mg 3 ml inhalation Q6H COPD J44.9 07/03/22 Unknown Rx (2.5 mg base)/3 mL nebulization #180 mL soln lidocaine-prilocaine 2.5 %-2.5 % 1 applic topical DAILY PRN PRN 08/10/23 Unknown Rx topical cream port access 30 days #1 tube carbidopa 25 mg-levodopa 100 mg 1 tab PO BID 10/31/23 Unknown History tablet budesonide 160 mcg-glycopyr 9 2 inh inhalation BID #10.7 grams 12/24/23 Unknown Rx mcg-formot 4.8 mcg/actuation HFA inhaler (Breztri Aerosphere) losartan 25 mg tablet 25 mg PO QDAY 04/01/24 Unknown History prednisone 20 mg tablet 60 mg (3 x 20 mg) PO QDAY #15 tabs 08/07/24 Unknown Rx insulin glargine 100 unit/mL (3 15 unit subcut .Daily Diabetes 10/05/24 Unknown History mL) subcutaneous pen (Lantus Solostar U-100 Insulin) Allergy/AdvReac Type Severity Reaction Status Date / Time No Known Allergies Allergy Verified 10/03/24 12:46 Family History (Reviewed 08/07/24 @ 11:02 by Gerda Garcia [employer]IOR [employer] DEVELOPER, S[employer]IOR [employer]PLICATION DEVELOPER-C) Mother Ovarian cancer Father Heart disease Brother Leukemia Surgical History Status post radical cystoprostatectomy Hx of transurethral resection of prostate (~01/05/21) History of quadruple bypass History of hand surgery History of ankle surgery Hx of cystoscopy S/P TURP Previous back surgery S/P CABG x 4 Social History (Reviewed 08/07/24 @ 11:02 by Gerda Garcia SENIOR [employer]PLICATION DEVELOPER, S[employer]IOR [employer]PLICATION DEVELOPER-C) current occupational status: retired Smoking Status: Light Smoker (<10/day) alcohol intake: never substance use type: does not use caffeine: Yes Type: coffee Number of servings: 1 eating out: rarely or never Physical Exam Const alert and no apparent distress General Appearance: cooperative HEENT normocephalic and head/scalp atraumatic Eyes PERRL and EOMs intact bilaterally Neck supple and No nodes Resp normal air movement and clear to auscultation bilaterally Cardio regular rate and regular rhythm Heart Sounds: murmur GI soft to palpation, non-tender and non-distended Extremity General Extremity: edema Skin no rashes or lesions noted Skin Narrative: no splinter hemorrhages on fingers. Non tender over spine. Neuro CN's II-XII intact bilaterally Lab / Micro Data Attestation: I reviewed the patient's lab results. 10/06/24 06:37 10/06/24 06:37 Labs: Laboratory Results - last 24 hr 10/04/24 05:25: Vitamin B12 203 L 10/05/24 12:40: Urine Color Yellow, Urine Clarity Sl. Cloudy, Urine pH 6.5, Ur Specific [place] 1.015, Urine Protein Negative, Urine Glucose (UA) 1000 H, Urine Ketones Negative, Urine Occult Blood 10 H, Urine Nitrite Negative, Urine Bilirubin Negative, Urine Urobilinogen Normal, Ur Leukocyte Esterase Negative, Urine RBC 0 SEEN, Urine WBC 0-5 SEEN, Ur Squamous Epith Cells 0 SEEN, Urine Bacteria RARE, Urine Mucus 1+ 10/05/24 16:10: POC Glucose 350 H 10/05/24 21:45: POC Glucose 330 H 10/06/24 06:37: WBC 7.1, RBC 3.61 L, Hgb 11.5 L, Hct 34.8 L, MCV 96.4 H, MCH 31.9, MCHC 33.0, RDW Std Deviation 48.7 H, RDW Coeff of Yara 13.6, Plt Count 297, MPV 10.2, Immature Gran % (Auto) 0.400, Neut % (Auto) 65.5, Lymph % (Auto) 27.2, [place] % (Auto) 5.4, Eos % (Auto) 0.8, Baso % (Auto) 0.7, Absolute Neuts (auto) 4.7, Absolute Lymphs (auto) 1.93, Nucleated RBC % 0, Sodium 134 L, Potassium 4.9, Chloride 104, Carbon Dioxide 25.0, Anion Gap 5, BUN 26 H, Creatinine 1.14, Estim Creat Clear Calc 59.36, Est GFR (MDRD) Af Amer 79, Est GFR (MDRD) Non-Af 65, BUN/Creatinine Ratio 22.8 H, Glucose 259 H, Calcium 8.8, Total Bilirubin 0.30, AST 18, ALT 7 L, Alkaline Phosphatase 80, Total Protein 7.1, Albumin 2.7 L , Globulin 4.4 H, Albumin/Globulin Ratio 0.6 L 10/06/24 06:40: POC Glucose 260 H 10/06/24 11:27: POC Glucose 248 H Micro: Microbiology 10/04/24 09:00 Sputum, Expectorated/Coughed Gram Stain - Final 10/04/24 09:00 Sputum, Expectorated/Coughed Respiratory Culture - Final 10/03/24 13:30 Blood Culture (Wb) - Anticubital Left Bacteria Detection (PCR) - Final Staphylococcus aureus 10/03/24 13:30 Blood Culture (Wb) - Anticubital Left Blood Culture - Preliminary Staphylococcus aureus 10/03/24 13:30 Blood Culture (Wb) - Venous Blood Culture - Preliminary No growth in 48 hours.
[2024-10-06] MEDS: Cefazolin 2 GM in Syringe IV ×2 (15:12→21:07)
[2024-10-06 17:01] LABS: Bedside Glucose 346 mg/dL (74-106)
--- NOTE | 2024-10-06 17:06 | PN.HOSP_ITS ---
Reason for Visit Reason for Visit: Diagnoses Methicillin susceptible Staphylococcus aureus infection as the cause of diseases classified elsewhere (10/03/24) Bacteremia (10/03/24) Subjective Subjective Patient was seen and examined today, family members were present at the time my examination. Patient's white blood cell count today is normal, patient's blood culture from 10/03/2024 grew out Staph aureus-this appears to be MSSA, infectious diseases repeated blood cultures and ordered an MRI of the lumbar spine, antibiotic coverage was narrowed to cefazolin. Echo result is pending at this time. Objective Data Objective Data Vital Signs: Vital Signs Temp Pulse Resp BP Pulse Ox O2 Del Method 97.8 F 77 18 142/70 H 97 Room Air 10/06/24 16:22 10/06/24 16:22 10/06/24 16:22 10/06/24 16:22 10/06/24 16:22 10/06/24 16:22 Oxygen Delivery Method Room Air Weight: 107.4 kg Body Mass Index (BMI) 36.0 Intake & Output: Intake and Output for Last 24 Hours 10/04/24 10/05/24 10/06/24 23:59 23:59 23:59 Intake Total 1080 / 1080 990 / 990 886.02 / 886.02 Output Total 0 / 0 2800 / 2800 1150 / 1150 Balance -970 / -970 -1810 / -1810 -263.98 / -263.98 Lab / Micro Data 10/06/24 06:37 10/06/24 06:37 Labs: Laboratory Results - last 24 hr 10/04/24 05:25: Vitamin B12 203 L 10/05/24 16:10: POC Glucose 350 H 10/05/24 21:45: POC Glucose 330 H 10/06/24 06:37: WBC 7.1, RBC 3.61 L, Hgb 11.5 L, Hct 34.8 L, MCV 96.4 H, MCH 31.9, MCHC 33.0, RDW Std Deviation 48.7 H, RDW Coeff of Yara 13.6, Plt Count 297, MPV 10.2, Immature Gran % (Auto) 0.400, Neut % (Auto) 65.5, Lymph % (Auto) 27.2, [place] % (Auto) 5.4, Eos % (Auto) 0.8, Baso % (Auto) 0.7, Absolute Neuts (auto) 4.7, Absolute Lymphs (auto) 1.93, Nucleated RBC % 0, Sodium 134 L, Potassium 4.9, Chloride 104, Carbon Dioxide 25.0, Anion Gap 5, BUN 26 H, Creatinine 1.14, Estim Creat Clear Calc 59.36, Est GFR (MDRD) Af Amer 79, Est GFR (MDRD) Non-Af 65, BUN/Creatinine Ratio 22.8 H, Glucose 259 H, Calcium 8.8, Total Bilirubin 0.30, AST 18, ALT 7 L, Alkaline Phosphatase 80, Total Protein 7.1, Albumin 2.7 L , Globulin 4.4 H, Albumin/Globulin Ratio 0.6 L 10/06/24 06:40: POC Glucose 260 H 10/06/24 11:27: POC Glucose 248 H 10/06/24 16:00: POC Glucose 346 H Micro: Microbiology 10/04/24 09:00 Sputum, Expectorated/Coughed Gram Stain - Final 10/04/24 09:00 Sputum, Expectorated/Coughed Respiratory Culture - Final 10/03/24 13:30 Blood Culture (Wb) - Anticubital Left Bacteria Detection (PCR) - Final Staphylococcus aureus 10/03/24 13:30 Blood Culture (Wb) - Anticubital Left Blood Culture - Preliminary Staphylococcus aureus 10/03/24 13:30 Blood Culture (Wb) - Venous Blood Culture - Preliminary No growth in 48 hours. 10/03/24 17:37 Mucosa - Nasopharyngeal Respiratory Panel (PCR) - Final 10/03/24 16:18 Nasal Secretion SARS-CoV-2 Antigen (Rapid) - Final Physical Exam Const alert, oriented x3, no apparent distress and healthy appearing General Appearance: cooperative, well kempt and well developed Orientation / Consciousness: awake, oriented to person, oriented to place and oriented to time HEENT normocephalic, head/scalp atraumatic and moist oral mucous membranes Eyes PERRL, EOMs intact bilaterally and conjunctivae normal Neck supple, no JVD and thyroid normal General: trachea midline Resp normal respiratory effort, no retractions and no use of accessory muscles Resp Narrative: Patient has some faint expiratory wheezing bilaterally. Auscultation: wheezes expiratory wheezes and throughout; Negative for rales or rhonchi Cardio regular rate, regular rhythm, S1 normal heart sound, S2 normal heart sound, no murmurs, no rub and no gallops GI normal to inspection, nondistended, normoactive bowel sounds, soft to palpation, non-tender and non-distended Extremity no clubbing, cyanosis or edema Skin no rashes or lesions noted General Skin Exam: no breakdown Neuro oriented x3, CN's II-XII intact bilaterally, moves all extremities, no focal motor deficits and no sensory deficits noted Sensorium / Orientation: awake and alert Speech: speech normal Psych affect normal Assessment & Plan Assessment/Plan (1) MSSA bacteremia: PLAN: Plan 1. Bacteremia with methicillin sensitive Staph aureus-patient will remain on Ancef at this time per ID, ID is participating in his care #2 acute exacerbation of COPD-patient has some faint expiratory wheezes bilaterally today, continue IV corticosteroids and aerosol treatments #3 back pain with generalized weakness-MRI of the lumbar spine was ordered, result is pending at this time #4 chronic kidney disease stage IIIa secondary to type 2 diabetes-complicates care, management, recovery, and prognosis, monitor labs as needed #5 type 2 diabetes-continue to perform fingerstick blood sugars and cover with sliding scale insulin #6 coronary artery disease-continue patient's home medications #7 Parkinson's disease-patient will continue on his home medications Total clinical time spent by myself addressing the patient's medical issues, reviewing all of his data, and collaborating with patient's care team: 35 minutes Charges/Coding Visit Charges Inpatient E&M: 99345 Subs Hosp L2
[2024-10-06] MEDS: Atorvastatin Calcium 20 MG Tablet PO (21:07)
[2024-10-06 22:26] LABS: Bedside Glucose 294 mg/dL (74-106)
[2024-10-07] VITALS (7 sets, daily range): BP systolic 123–141; BP diastolic 61–70; PULSE 53–68; RESP 16–18; TEMP 36.6–36.7; O2SAT 94–98
[2024-10-07] MEDS: Cefazolin 2 GM in Syringe IV ×3 (04:50→21:10)
[2024-10-07] MEDS: Primidone 250 MG Tablet PO ×2 (04:51→21:10)
[2024-10-07] MEDS: Insulin Lispro 100 UNIT/ML INSULN.PEN SC ×4 (04:51→21:13)
[2024-10-07] MEDS: Acetaminophen 500 MG Tablet 1000 MG PO ×3 (04:51→21:10)
[2024-10-07] MEDS: Gabapentin 400 MG Capsule PO ×3 (04:51→21:10)
[2024-10-07] MEDS: Senna/Docusate Sodium 1 Tablet 2 TABLET PO (04:56)
[2024-10-07] MEDS: Ipratropium/Albuterol Sulfate 3 ML AMPUL.NEB INHALATION (07:00)
[2024-10-07 07:05] LABS: Bedside Glucose 258 mg/dL (74-106)
[2024-10-07 08:02] LABS: Absolute Lymphocyte Count 1.56 X10^3/uL (0.83-4.51); Absolute Neutrophil Count 4.6 X10^3/uL (2.0-7.7); Basophil# 0.06 X10^3/uL; Basophil% 0.9 % (0-1); Eosinophils% 1.5 % (0-5); Hematocrit 37.8 % (40-54); Hemoglobin 12.6 g/dL (13.0-16.5); Lymphocyte # 1.56 X10^3/ul (0.83-4.51); Lymphocyte % 23.5 % (19-41); Mean Corp Hgb Conc 33.3 g/dL (32-36); Mean Corpuscular Volume 95.9 fL (80-94); Mean Platelet Vol. 9.8 fl (6.2-12.0); Monocyte% 4.5 % (0-10); NRBC Flagged by Analyzer 0 % (0-5); Neutrophil # 4.58 X10^3/uL (2.7-7.7); Neutrophil % 68.8 % (47-70); Platelet Count 325 K/mm3 (150-450); RBC Distribution Width CV 13.4 % (11.6-14.6); Red Blood Count 3.94 M/mm3 (4.6-6.2); White Blood Count 6.7 K/mm3 (4.4-11.0)
[2024-10-07] MEDS: Aspirin 81 MG TAB.CHEW PO (09:14)
[2024-10-07] MEDS: Insulin Glargine-YFGN 100 UNIT/ML Pen 15 UNIT SC (09:15)
[2024-10-07] MEDS: Losartan Potassium 25 MG Tablet PO (09:15)
[2024-10-07] MEDS: DULoxetine Hcl 60 MG Capsule PO ×2 (09:15→21:10)
[2024-10-07] MEDS: Lidocaine 5% Patch 1 PATCH TOPICAL (09:15)
[2024-10-07] MEDS: Topiramate 50 MG Tablet PO ×2 (09:17→21:10)
[2024-10-07] MEDS: Enoxaparin 40 MG/0.4 ML Syringe SC (09:17)
[2024-10-07] MEDS: Carbidopa/Levodopa 25/100 Tablet PO ×2 (09:17→21:10)
[2024-10-07] MEDS: Fenofibrate 145 MG Tablet PO (09:17)
[2024-10-07] MEDS: guaiFENesin 1,200 MG Tablet 1200 MG PO ×2 (09:17→21:09)
--- NOTE | 2024-10-07 10:47 | PN.ID_ITS ---
Physical Exam Narrative Feeling better, mild low back pain, no fever Const alert and no apparent distress General Appearance: cooperative Resp normal air movement and clear to auscultation bilaterally Cardio regular rate and regular rhythm GI soft to palpation, non-tender and non-distended Skin no rashes or lesions noted ID ID: Route of nutrition/ use of supplements: [] Nutritional Intake: [] IV Site: [] Harrison Catheter: [] Assessment & Plan Assessment/Plan (1) MSSA bacteremia: PLAN: MSSA (+) Bcx 09/30/24 in [facility] system. Will check repeat bcx, no veg s een on TTE. Pending MRI L spine. Unclear source of infection. Cont cefazolin. Will follow
--- NOTE | 2024-10-07 11:18 | PCM.PN.HOSP ---
Reason for Visit Reason for Visit: Diagnoses Methicillin susceptible Staphylococcus aureus infection as the cause of diseases classified elsewhere (10/03/24) Bacteremia (10/03/24) Subjective Subjective Patient was seen and examined today, respiratory states that he would like his aerosol treatments to be made as needed rather than programmed, I changed aerosol treatments today. Patient is on room air and he does not have any respiratory complaints. We are awaiting the patient's second set of blood cultures to return, MRI of the lumbar spine did not result yet, echocardiogram was unremarkable. Objective Data Objective Data Vital Signs: Vital Signs Temp Pulse Resp BP Pulse Ox O2 Del Method FiO2 97.9 F 68 18 130/70 H 96 Room Air 10/07/24 09:21 10/07/24 10:00 10/07/24 09:21 10/07/24 09:21 10/07/24 09:21 10/07/24 09:21 10/06/24 23:40 Oxygen Delivery Method Room Air Weight: 107.4 kg Body Mass Index (BMI) 36.0 Intake & Output: Intake and Output for Last 24 Hours 10/05/24 10/06/24 10/07/24 23:59 23:59 23:59 Intake Total 990 / 990 906.02 / 906.02 Output Total 2800 / 2800 2550 / 2550 1700 / 1700 Balance -1810 / -1810 -1643.98 / -1643.98 -1680 / -1680 Lab / Micro Data 10/07/24 07:50 10/06/24 06:37 Labs: Laboratory Results - last 24 hr 10/06/24 11:27: POC Glucose 248 H 10/06/24 16:00: POC Glucose 346 H 10/06/24 20:58: POC Glucose 294 H 10/07/24 04:50: POC Glucose 258 H 10/07/24 07:50: WBC 6.7, RBC 3.94 L, Hgb 12.6 L, Hct 37.8 L, MCV 95.9 H, MCH 32.0, MCHC 33.3, RDW Std Deviation 48.0 H, RDW Coeff of Yara 13.4, Plt Count 325, MPV 9.8, Immature Gran % (Auto) 0.800, Neut % (Auto) 68.8, Lymph % (Auto) 23.5, [place] % (Auto) 4.5, Eos % (Auto) 1.5, Baso % (Auto) 0.9, Absolute Neuts (auto) 4.6, Absolute Lymphs (auto) 1.56, Nucleated RBC % 0 Micro: Microbiology 10/05/24 12:40 Urine, Random Urine Culture - Preliminary Culture exhibits no growth. 10/03/24 13:30 Blood Culture (Wb) - Anticubital Left Bacteria Detection (PCR) - Final Staphylococcus aureus 10/03/24 13:30 Blood Culture (Wb) - Anticubital Left Blood Culture - Final Staphylococcus aureus 10/04/24 09:00 Sputum, Expectorated/Coughed Gram Stain - Final 10/04/24 09:00 Sputum, Expectorated/Coughed Respiratory Culture - Final 10/03/24 13:30 Blood Culture (Wb) - Venous Blood Culture - Preliminary No growth in 48 hours. 10/03/24 17:37 Mucosa - Nasopharyngeal Respiratory Panel (PCR) - Final 10/03/24 16:18 Nasal Secretion SARS-CoV-2 Antigen (Rapid) - Final Radiography Diagnostic Testing: Radiology Impression Echocardiogram 10/06/24 05:55 Interpretation Summary Normal left ventricle. Left ventricular systolic function is normal. The left ventricular ejection fraction is 60 %. Mildly dilated aortic root. Mild concentric left ventricular hypertrophy. Contrast injection was performed. Ordering Physician: Angie Perea Performed By: Yisel Duke RDTORIE Physical Exam Narrative alert, oriented x3, no apparent distress and healthy appearing General Appearance: cooperative, well kempt and well developed Orientation / Consciousness: awake, oriented to person, oriented to place and oriented to time HEENT normocephalic, head/scalp atraumatic and moist oral mucous membranes Eyes PERRL, EOMs intact bilaterally and conjunctivae normal Neck supple, no JVD and thyroid normal General: trachea midline Resp normal respiratory effort, no retractions and no use of accessory muscles Resp Narrative: Lungs are clear to auscultation bilaterally, breath sounds are diminished Cardio regular rate, regular rhythm, S1 normal heart sound, S2 normal heart sound, no murmurs, no rub and no gallops GI normal to inspection, nondistended, normoactive bowel sounds, soft to palpation, non-tender and non-distended Extremity no clubbing, cyanosis or edema Skin no rashes or lesions noted General Skin Exam: no breakdown Neuro oriented x3, CN's II-XII intact bilaterally, moves all extremities, no focal motor deficits and no sensory deficits noted Sensorium / Orientation: awake and alert Speech: speech normal Psych affect normal Assessment & Plan Assessment/Plan (1) MSSA bacteremia: PLAN: Plan 1. Bacteremia with methicillin sensitive Staph aureus-patient will remain on Ancef at this time per ID, ID is participating in his care #2 acute exacerbation of COPD-switch to oral prednisone, continue aerosol treatments as needed #3 back pain with generalized weakness-MRI of the lumbar spine was performed, result is pending at this time #4 chronic kidney disease stage IIIa secondary to type 2 diabetes-complicates care, management, recovery, and prognosis, monitor labs as needed #5 type 2 diabetes-continue to perform fingerstick blood sugars and cover with sliding scale insulin #6 coronary artery disease-continue patient's home medications #7 Parkinson's disease-patient will continue on his home medications Total clinical time spent by myself addressing the patient's medical issues, reviewing all of his data, and collaborating with patient's care team: 35 minutes Charges/Coding Visit Charges Inpatient E&M: 83042 Subs Hosp L2
[2024-10-07 11:30] LABS: Bedside Glucose 289 mg/dL (74-106)
[2024-10-07 17:25] LABS: Bedside Glucose 226 mg/dL (74-106)
[2024-10-07] MEDS: Atorvastatin Calcium 20 MG Tablet PO (21:10)
[2024-10-07 22:04] LABS: Bedside Glucose 299 mg/dL (74-106)
[2024-10-08] VITALS (7 sets, daily range): BP systolic 116–133; BP diastolic 61–76; PULSE 56–67; RESP 16–20; TEMP 36.4–36.6; O2SAT 94–98
[2024-10-08] MEDS: Insulin Lispro 100 UNIT/ML INSULN.PEN SC ×4 (04:51→22:30)
[2024-10-08] MEDS: Acetaminophen 500 MG Tablet 1000 MG PO ×3 (04:52→22:30)
[2024-10-08] MEDS: Gabapentin 400 MG Capsule PO ×3 (04:52→22:30)
[2024-10-08] MEDS: Senna/Docusate Sodium 1 Tablet 2 TABLET PO (04:55)
[2024-10-08] MEDS: Cefazolin 2 GM in Syringe IV ×3 (04:55→22:31)
[2024-10-08 06:05] LABS: Bedside Glucose 268 mg/dL (74-106)
[2024-10-08] MEDS: Lidocaine 5% Patch 1 PATCH TOPICAL (08:08)
[2024-10-08] MEDS: guaiFENesin 1,200 MG Tablet 1200 MG PO ×2 (08:09→22:30)
[2024-10-08] MEDS: Losartan Potassium 25 MG Tablet PO (08:09)
[2024-10-08] MEDS: Carbidopa/Levodopa 25/100 Tablet PO ×2 (08:09→22:30)
[2024-10-08] MEDS: DULoxetine Hcl 60 MG Capsule PO ×2 (08:09→22:30)
[2024-10-08] MEDS: Enoxaparin 40 MG/0.4 ML Syringe SC (08:09)
[2024-10-08] MEDS: Aspirin 81 MG TAB.CHEW PO (08:09)
[2024-10-08] MEDS: Topiramate 50 MG Tablet PO ×2 (08:10→22:30)
[2024-10-08] MEDS: Fenofibrate 145 MG Tablet PO (08:10)
[2024-10-08] MEDS: Insulin Glargine-YFGN 100 UNIT/ML Pen 15 UNIT SC (08:10)
[2024-10-08 11:54] LABS: Bedside Glucose 230 mg/dL (74-106)
--- NOTE | 2024-10-08 13:16 | PCM.PN.ID ---
Physical Exam Narrative Feeling better, no fever, no n/v/d. C/o constipation, says hasn't had BM in a week Const alert and no apparent distress General Appearance: cooperative Resp normal air movement and clear to auscultation bilaterally Cardio regular rate and regular rhythm GI soft to palpation, non-tender and non-distended Skin no rashes or lesions noted ID ID: Route of nutrition/ use of supplements: [] Nutritional Intake: [] IV Site: [] Harrison Catheter: [] Assessment & Plan Assessment/Plan (1) MSSA bacteremia: PLAN: MSSA (+) Bcx 09/30/24 in [facility] system. 10/06/24 so far neg repeat bcx, no veg seen on TTE. No infection seen on MRI L spine. Unclear source of infection. Cont cefazolin. With duloxetine and sinemet, likely unable to use linezolid at discharge, so may need line placement and course iv abx at discharge. Will follow
[2024-10-08] MEDS: Ipratropium/Albuterol Sulfate 3 ML AMPUL.NEB INHALATION ×2 (13:17→19:01)
--- NOTE | 2024-10-08 14:07 | CASEMGMT ---
Discharge Planning A list of?HH providers including quality and resource use data and consistent with the patient's preferred geographic region, medical needs, and insurance network was created in [employer] Guide.? This list was provided to the RN BONNIE. Doreen Ambrosio, Discharge Planning Asst.
--- NOTE | 2024-10-08 14:14 | CASEMGMT ---
Social Work Pt confirms he has completed a living will and health care POA naming , Kristy.? Pt notified that documents are not on file at [facility] and SW requested they be brought in for scanning into the EMR.? EDMUND López
--- NOTE | 2024-10-08 16:17 | PCM.PN.HOSP ---
Reason for Visit Reason for Visit: Diagnoses Methicillin susceptible Staphylococcus aureus infection as the cause of diseases classified elsewhere (10/03/24) Bacteremia (10/03/24) Subjective Subjective Patient was seen and examined today, I talked with infectious diseases about his care. Patient's blood culture results are pending at this time and he will need to stay until tomorrow. Patient remains on his present antibiotic coverage. I will change the patient over from IV methylprednisolone to oral prednisone today. Patient remains off oxygen at this time. Objective Data Objective Data Vital Signs: Vital Signs Temp Pulse Resp BP Pulse Ox O2 Del Method FiO2 97.9 F 67 18 116/61 98 Room Air 21 10/08/24 16:00 10/08/24 16:00 10/08/24 16:00 10/08/24 16:00 10/08/24 16:00 10/08/24 16:00 10/06/24 23:40 Oxygen Delivery Method Room Air Weight: 107.4 kg Body Mass Index (BMI) 36.0 Intake & Output: Intake and Output for Last 24 Hours 10/06/24 10/07/24 10/08/24 23:59 23:59 23:59 Intake Total 906.02 / 906.02 810 / 810 440 / 440 Output Total 2550 / 2550 1700 / 4700 3600 / 3600 Balance -1643.98 / -1643.98 -890 / -3890 -3160 / -3160 Lab / Micro Data 10/07/24 07:50 10/06/24 06:37 Labs: Laboratory Results - last 24 hr 10/07/24 16:52: POC Glucose 226 H 10/07/24 21:09: POC Glucose 299 H 10/08/24 04:50: POC Glucose 268 H 10/08/24 11:28: POC Glucose 230 H Micro: Microbiology 10/06/24 06:37 Blood Culture (Wb) - Right Forearm Blood Culture - Preliminary No growth in 48 hours. 10/05/24 12:40 Urine, Random Urine Culture - Final Culture exhibits no growth. 10/03/24 13:30 Blood Culture (Wb) - Anticubital Left Bacteria Detection (PCR) - Final Staphylococcus aureus 10/03/24 13:30 Blood Culture (Wb) - Anticubital Left Blood Culture - Final Staphylococcus aureus 10/04/24 09:00 Sputum, Expectorated/Coughed Gram Stain - Final 10/04/24 09:00 Sputum, Expectorated/Coughed Respiratory Culture - Final 10/03/24 13:30 Blood Culture (Wb) - Venous Blood Culture - Preliminary No growth in 48 hours. 10/03/24 17:37 Mucosa - Nasopharyngeal Respiratory Panel (PCR) - Final 10/03/24 16:18 Nasal Secretion SARS-CoV-2 Antigen (Rapid) - Final Physical Exam Narrative alert, oriented x3, no apparent distress and healthy appearing General Appearance: cooperative, well kempt and well developed Orientation / Consciousness: awake, oriented to person, oriented to place and oriented to time HEENT normocephalic, head/scalp atraumatic and moist oral mucous membranes Eyes PERRL, EOMs intact bilaterally and conjunctivae normal Neck supple, no JVD and thyroid normal General: trachea midline Resp normal respiratory effort, no retractions and no use of accessory muscles Resp Narrative: Lungs are clear to auscultation bilaterally, breath sounds are diminished Cardio regular rate, regular rhythm, S1 normal heart sound, S2 normal heart sound, no murmurs, no rub and no gallops GI normal to inspection, nondistended, normoactive bowel sounds, soft to palpation, non-tender and non-distended Extremity no clubbing, cyanosis or edema Skin no rashes or lesions noted General Skin Exam: no breakdown Neuro oriented x3, CN's II-XII intact bilaterally, moves all extremities, no focal motor deficits and no sensory deficits noted Sensorium / Orientation: awake and alert Speech: speech normal Psych affect normal Assessment & Plan Assessment/Plan (1) MSSA bacteremia: PLAN: Plan 1. Bacteremia with methicillin sensitive Staph aureus-patient will remain on Ancef at this time per ID, ID is participating in his care, patient's blood culture results should be resulted by tomorrow. #2 acute exacerbation of COPD-switch to oral prednisone, continue aerosol treatments as needed #3 back pain with generalized weakness-MRI of the lumbar spine was performed, result is pending at this time #4 chronic kidney disease stage IIIa secondary to type 2 diabetes-complicates care, management, recovery, and prognosis, monitor labs as needed #5 type 2 diabetes-continue to perform fingerstick blood sugars and cover with sliding scale insulin #6 coronary artery disease-continue patient's home medications #7 Parkinson's disease-patient will continue on his home medications Total clinical time spent by myself addressing the patient's medical issues, reviewing all of his data, and collaborating with patient's care team: 35 minutes Charges/Coding Visit Charges Inpatient E&M: [id number] Subs Hosp L2
[2024-10-08 16:41] LABS: Bedside Glucose 344 mg/dL (74-106)
[2024-10-08] MEDS: predniSONE 20 MG Tablet PO (17:05)
[2024-10-08] MEDS: Atorvastatin Calcium 20 MG Tablet PO (22:30)
[2024-10-08] MEDS: Primidone 250 MG Tablet PO (22:30)
[2024-10-08] MEDS: 0.9% Saline Lock 10 ML Syringe IV (22:31)
[2024-10-08 23:33] LABS: Bedside Glucose 353 mg/dL (74-106)
[2024-10-09 05:00] VITALS: BP 130/87; PULSE 87; RESP 16; TEMP 36.6; O2SAT 97
[2024-10-09] MEDS: Gabapentin 400 MG Capsule PO ×2 (05:44→14:22)
[2024-10-09] MEDS: Primidone 250 MG Tablet PO ×2 (05:44→14:25)
[2024-10-09] MEDS: 0.9% Saline Lock 10 ML Syringe IV ×2 (05:44→14:23)
[2024-10-09] MEDS: Cefazolin 2 GM in Syringe IV ×2 (05:44→14:23)
[2024-10-09] MEDS: Acetaminophen 500 MG Tablet 1000 MG PO ×2 (05:44→14:22)
[2024-10-09] MEDS: Insulin Lispro 100 UNIT/ML INSULN.PEN SC ×3 (06:54→16:19)
[2024-10-09 07:24] LABS: Bedside Glucose 247 mg/dL (74-106)
[2024-10-09 07:30] VITALS: PULSE 89; RESP 18; O2SAT 94
[2024-10-09] MEDS: Ipratropium/Albuterol Sulfate 3 ML AMPUL.NEB INHALATION ×2 (07:31→12:48)
[2024-10-09 09:06] VITALS: BP 103/51; PULSE 62; RESP 18; TEMP 36.4; O2SAT 95
[2024-10-09] MEDS: Senna/Docusate Sodium 1 Tablet 2 TABLET PO (09:17)
[2024-10-09] MEDS: Aspirin 81 MG TAB.CHEW PO (09:18)
[2024-10-09] MEDS: Topiramate 50 MG Tablet PO (09:18)
[2024-10-09] MEDS: guaiFENesin 1,200 MG Tablet 1200 MG PO (09:18)
[2024-10-09] MEDS: Enoxaparin 40 MG/0.4 ML Syringe SC (09:18)
[2024-10-09] MEDS: Fenofibrate 145 MG Tablet PO (09:18)
[2024-10-09] MEDS: DULoxetine Hcl 60 MG Capsule PO (09:18)
[2024-10-09] MEDS: Insulin Glargine-YFGN 100 UNIT/ML Pen 15 UNIT SC (09:18)
[2024-10-09] MEDS: Lidocaine 5% Patch 1 PATCH TOPICAL (09:19)
[2024-10-09] MEDS: Carbidopa/Levodopa 25/100 Tablet PO (09:19)
[2024-10-09] MEDS: predniSONE 20 MG Tablet PO ×2 (09:21→16:19)
--- NOTE | 2024-10-09 10:30 | CASEMGMT ---
Addendum entered by Gisel Pedroza 10/09/24 16:02: Updated soup mixer and charge nurse that green sheet on chart for midline info to be faxed to [facility] so that they can deliver IV med tonight. Addendum entered by Gisel Pedroza 10/09/24 15:31: Midline to be placed between 5-6 today. Updated pt and . Pt would like meds to be delivered to room. TC to pharmacy to deliver meds to room, pt will pay by credit card. Green sheet on chart for midline to be faxed to [facility]. Updated [facility] on insertion time. Addendum entered by Gisel Pedroza 10/09/24 15:09: PAMLEA NICOLE into pt room, pt aware of cost of IV of $8.48/wk for drug. Pt agreeable to this. Pt aware he will dc after line placed. Charge nurse calling to check on time of this. Pt states that [facility] already called. Pt and deny further needs at this time. Addendum entered by Gisel Pedroza 10/09/24 11:59: Faxed [facility] the rx for IV. Addendum entered by Gisel Pedroza 10/09/24 11:32: PAMELA NICOLE notified pt and granddtr that [facility] will see him tomorrow for care. He is also aware that the nurse from [facility] is on the floor and will come in to see the patient soon. Addendum entered by Gisel Pedroza 10/09/24 11:25: Received tc back from Lexi at [facility], they will see pt tomorrow. Original Note: PAMELA NICOLE received IV rx. PAMELA NICOLE into pt room, pt and granddtr present in room. Discussed with pt and family need for IV. Provided pt with a verbal local list of in network infusion companies. Pt chose [facility]. Provided pt with a HH list created by [employer]sw[employer] funeral assistant, pt chose 1. [facility] 2. [facility]. PAMELA NICOLE explained plan for [facility] and what to expect. Pt to learn IV and granddtr is also available to learn. TC to [facility], referral given to Lexi. Will await decision to accept. DC funeral assistant to send referral to [facility]. Pt denies need for therapy in the home.
--- NOTE | 2024-10-09 10:31 | CASEMGMT ---
Discharge Planning Infusion referral sent via [facility] to I. Doreen Ambrosio DC Planning Asst.
[2024-10-09 11:17] LABS: Bedside Glucose 307 mg/dL (74-106)
[2024-10-09 12:48] VITALS: PULSE 92; RESP 18
[2024-10-09 14:18] VITALS: BP 121/55; PULSE 65; RESP 18; TEMP 36.4; O2SAT 97
--- NOTE | 2024-10-09 14:58 | PN.ID_ITS ---
Physical Exam Narrative Feeling well, no fever, no n/v/d. Const alert and no apparent distress General Appearance: cooperative Resp normal air movement and clear to auscultation bilaterally Cardio regular rate and regular rhythm GI soft to palpation, non-tender and non-distended Skin no rashes or lesions noted ID ID: Route of nutrition/ use of supplements: [] Nutritional Intake: [] IV Site: [] Harrison Catheter: [] Assessment & Plan Assessment/Plan (1) MSSA bacteremia: PLAN: MSSA (+) Bcx 09/30/24 in [facility] system. 10/06/24 so far neg repeat bcx, no veg seen on TTE. No infection seen on MRI L spine. Unclear source of infection. Cont cefazolin. With duloxetine and sinemet, unable to use linezolid at discharge, so will order midline and 10 days cefazolin at discharge. Will follow prn, D/w primary team and case management manager
--- NOTE | 2024-10-09 15:02 | PCM.DC ---
Discharge Instructions Diet Discharge Diet: 1800 Calorie Control Diet Activity Discharge Activity: Return to Normal Activity Weight Bearing Status: Full weight bearing Follow Up Care Test Results: Test results from this visit will be discussed in further detail at your follow-up appointment, if applicable. Discharge Plan Admission Admit Date/Time: 10/03/24 15:24 Primary Reason for Your Visit: Staph bacteremia Attending Provider: Don Mina Primary Care Provider: Ruben Angela SHIPYARD PAINTING SUPERVISOR Consulting Providers: Peggy Wilkinson; Angie Perea; Michael Jacobo Discharge Orders/Prescriptions Prescriptions: New cefazolin 2 gram recon soln 2 g IV Q8H 10 Days Rx Instructions: stop date 10/20/24. Dx: mssa bacteremia. weekly bmp, cbc; fax to [phone]. Routine midline care per protocol. prednisone 20 mg Tablet 20 mg PO BIDCM Qty: 11 0RF Rx Instructions: 1 twice a day for 3 days, then 1 daily for 3 days, then one half daily for 4 days then stop Continued omega-3 fatty acids 1,000 mg capsule 1,000 mg PO QDAY duloxetine 60 mg capsule,delayed release(DR/EC) 60 mg PO BID hydrocodone-acetaminophen 5-325 mg tablet 1 tab PO Q6H PRN (Reason: Pain) carbidopa-levodopa 25-100 mg tablet 1 tab PO BID losartan 25 mg tablet 25 mg PO QDAY pioglitazone [Actos] 45 MG tablet 45 mg PO DAILY simvastatin 40 MG tablet 40 mg PO QHS primidone 250 MG tablet 250 mg PO TID glimepiride 4 MG tablet 4 mg PO DAILY topiramate 50 MG tablet 50 mg PO BID fenofibrate 160 MG tablet 160 mg PO DAILY insulin glargine [Lantus Solostar U-100 Insulin] 100 unit/mL (3 mL) insulin pen 15 unit subcut .Daily Patient Comments: 15 units daily ipratropium-albuterol 0.5 mg-3 mg(2.5 mg base)/3 mL solution for nebulization 3 ml INHALATION Q6H Qty: 180 11RF lidocaine-prilocaine 2.5-2.5 % cream 1 applic topical DAILY PRN PRN (Reason: port access) 30 Days Qty: 1 2RF Breztri Aerosphere 160-9-4.8 mcg/actuation HFA aerosol inhaler 2 inh inhalation BID Qty: 10.7 6RF Discontinued gabapentin 800 mg tablet 800 mg PO TID prednisone 20 mg tablet 60 mg PO QDAY Qty: 15 0RF Rx Instructions: administer with food or milk Referrals / Follow Up: Ruben Angela NP, SHIPYARD PAINTING SUPERVISOR-C [Primary Care Provider] - Within 2 Weeks Disposition Disposition (needs filled in before D/C Order can be placed): Home Health Service
--- NOTE | 2024-10-09 15:23 | DS.PCM_ITS ---
Providers Date of Admission: 10/03/24 Date of Discharge: 10/09/24 Primary Care Physician: Ruben Angela, [id number] Consultations 10/05/24 15:30 Consult: Infectious Disease Routine Consulting Provider: Michael Jacobo Reason for Consult: + Bld Cx EMERGENT Consult: No MD Notified: Yes Date Notified: 10/05/24 Time Notified: 15:31 Method of Notification: Text Reason For Visit: POSITIVE BACTERIAL BLOOD CULTURE Diagnosis Discharge Diagnosis (1) MSSA bacteremia: Status: Inactive Code(s): R78.81 - Bacteremia; B95.61 - Methicillin susceptible Staphylococcus aureus infection as the cause of diseases classified elsewhere Plan 1. Bacteremia with methicillin sensitive Staph aureus-patient will remain on Ancef at this time per ID, ID is participating in his care, patient's blood culture results should be resulted by tomorrow. #2 acute exacerbation of COPD-switch to oral prednisone, continue aerosol treatments as needed #3 back pain with generalized weakness-MRI of the lumbar spine was performed, result is pending at this time #4 chronic kidney disease stage IIIa secondary to type 2 diabetes-complicates care, management, recovery, and prognosis, monitor labs as needed #5 type 2 diabetes-continue to perform fingerstick blood sugars and cover with sliding scale insulin #6 coronary artery disease-continue patient's home medications #7 Parkinson's disease-patient will continue on his home medications Total clinical time spent by myself addressing the patient's medical issues, reviewing all of his data, and collaborating with patient's care team: 35 minutes Medications at Discharge Home Medications duloxetine 60 mg capsule,delayed release 60 mg PO BID DEPRESSION 03/12/18 omega-3 fatty acids 1,000 mg capsule 1,000 mg PO QDAY SUPPLEMENT 03/12/18 fenofibrate 160 mg tablet 160 mg PO DAILY CHOLESTEROL 01/14/21 glimepiride 4 mg tablet 4 mg PO DAILY DIABETIC 01/14/21 pioglitazone 45 mg tablet (Actos) 45 mg PO DAILY DIABETES 01/14/21 primidone 250 mg tablet 250 mg PO TID PARKINSONS 01/14/21 simvastatin 40 mg tablet 40 mg PO QHS CHOLESTEROL 01/14/21 topiramate 50 mg tablet 50 mg PO BID TREMORS 01/14/21 hydrocodone-acetaminophen 5-325mg 5mg-325mg 1 tab PO Q6H PRN Pain 03/23/21 ipratropium 0.5 mg-albuterol 3 mg (2.5 mg base)/3 mL nebulization soln 3 ml inhalation Q6H COPD J44.9 #180 mL 07/03/22 lidocaine-prilocaine 2.5 %-2.5 % topical cream 1 applic topical DAILY PRN PRN port access 30 days #1 tube 08/10/23 carbidopa 25 mg-levodopa 100 mg tablet 1 tab PO BID 10/31/23 budesonide 160 mcg-glycopyr 9 mcg-formot 4.8 mcg/actuation HFA inhaler (Breztri Aerosphere) 2 inh inhalation BID #10.7 grams 12/24/23 losartan 25 mg tablet 25 mg PO QDAY 04/01/24 insulin glargine 100 unit/mL (3 mL) subcutaneous pen (Lantus Solostar U-100 Insulin) 15 unit subcut .Daily Diabetes 10/05/24 cefazolin 2 gram intravenous solution 2 g IV Q8H 10 days 10/09/24 prednisone 20 mg tablet 20 mg PO BIDCM #11 tabs 10/09/24 Hospital Course Operations None Procedures 2-D Echocardiogram and PICC line placement Summary of Care Provided Minutes Spent on Discharge: 32 Hospital Course: This 84-year-old white male was seen in the emergency room at [facility] after having positive blood cultures obtained as an outpatient during one of his emergency room visits recently. Workup in the emergency room showed the patient have a normal white blood cell count, creatinine was elevated at 1.36 and BUN was 22. Patient's glucose was 386, chest x-ray showed a small right pleural effusion with mild compressive atelectasis of the right lower lobe along with cholelithiasis and mild right hydronephrosis and hydroureter which appeared to be improved from previous examination. Blood cultures from October 01, 2024 was positive for gram-positive cocci in clusters, patient was started on IV vancomycin and IV Zosyn, due to expiratory wheezing in the emergency room patient was given aerosol treatments, he was admitted to [place] [address] for bacteremia and exacerbation of COPD, aerosol treatments were given and the patient was placed on IV corticosteroids. Patient was seen in consultation by infectious diseases. Ultimately a PICC line was inserted for outpatient IV antibiotic usage, patient's respiratory status improved during his hospitalization. Echocardiogram was unremarkable. On 10/09/2024, patient was seen and examined: On examination he appeared in good health and spirits. Vital signs as documented. Skin warm and dry and without overt rashes. Neck without JVD, neck was supple, trachea midline, thyroid was normal. Lungs clear bilaterally, normal air movement was noted. Heart exam notable for regular rhythm, normal sounds and absence of murmurs, rubs or gallops. Abdomen unremarkable and without evidence of organomegaly, masses, or abdominal aortic enlargement. Bowel sounds are present, abdomen is not distended. Extremities nonedematous, no cyanosis was noted, no clubbing was noted. Neuro: Cranial nerves II through XII are grossly intact, no focal motor deficits were noted, sensation to light touch and pinprick intact, motor exam 5/5 throughout. Psych: Patient is alert and oriented x3, he does not appear anxious or depressed, he does not appear agitated. Patient was discharged home stable condition on 10/09/2024 Weight / BMI Weight Weight: 107.4 kg Body Mass Index (BMI) 36.0 ABG / Lab / Microbiology Data 10/07/24 07:50 10/06/24 06:37 Laboratory: Laboratory Results - last 24 hr 10/08/24 16:14: POC Glucose 344 H 10/08/24 22:24: POC Glucose 353 H 10/09/24 06:53: POC Glucose 247 H 10/09/24 10:55: POC Glucose 307 H Microbiology: Microbiology 10/07/24 11:11 Blood Culture (Wb) - Anticubital Right Blood Culture - Preliminary No growth in 48 hours. 10/06/24 06:37 Blood Culture (Wb) - Right Forearm Blood Culture - Preliminary No growth in 48 hours. 10/05/24 12:40 Urine, Random Urine Culture - Final Culture exhibits no growth. 10/03/24 13:30 Blood Culture (Wb) - Anticubital Left Bacteria Detection (PCR) - Final Staphylococcus aureus 10/03/24 13:30 Blood Culture (Wb) - Anticubital Left Blood Culture - Final Staphylococcus aureus 10/04/24 09:00 Sputum, Expectorated/Coughed Gram Stain - Final 10/04/24 09:00 Sputum, Expectorated/Coughed Respiratory Culture - Final 10/03/24 13:30 Blood Culture (Wb) - Venous Blood Culture - Preliminary No growth in 48 hours. 10/03/24 17:37 Mucosa - Nasopharyngeal Respiratory Panel (PCR) - Final 10/03/24 16:18 Nasal Secretion SARS-CoV-2 Antigen (Rapid) - Final D/C Instructions Discharge Diet: 1800 Calorie Control Diet Weight Bearing Status: Full weight bearing Meaningful Use Info Meaningful Use Meaningful Use Diagnoses (Choose all that apply): None applicable Ischemic Stroke Statin Dosing Therapy Reference: STATIN DOSE THERAPY REFERENCE: * Patients > 75 years receive moderate or high dose statin therapy. * Patients 75 years or YOUNGER should receive HIGH intensity statin dose unless contraindicated. You will be required to document reason for non-treatment if statin daily dose does not meet guidelines. HIGH DOSE STATIN THERAPY DAILY Atorvastatin > than or = to 40 mg Rosuvastatin > than or = to 20 mg Amlodipine + Atorvastatin > than or = to 2.5/40 mg Ezetimibe + Simvastatin 10/80 mg Simvastatin 80mg Discharge Plan Admission Admit Date/Time: 10/03/24 15:24 Primary Reason for Your Visit: Staph bacteremia Attending Provider: Don Mina Primary Care Provider: Ruben Angela DEVELOPMENTAL EDUCATION INSTRUCTOR Consulting Providers: Peggy Wilkinson; Angie Perea; Michael Jacobo Instructions Additional Instructions / Restrictions: Continue to take gabapentin 600 mg 3 times a day as directed by your neurologist Discharge Orders/Prescriptions Prescriptions: New cefazolin 2 gram recon soln 2 g IV Q8H 10 Days Rx Instructions: stop date 10/20/24. Dx: mssa bacteremia. weekly bmp, cbc; fax to [phone]. Routine midline care per protocol. prednisone 20 mg Tablet 20 mg PO BIDCM Qty: 11 0RF Rx Instructions: 1 twice a day for 3 days, then 1 daily for 3 days, then one half daily for 4 days then stop Continued omega-3 fatty acids 1,000 mg capsule 1,000 mg PO QDAY duloxetine 60 mg capsule,delayed release(DR/EC) 60 mg PO BID hydrocodone-acetaminophen 5-325 mg tablet 1 tab PO Q6H PRN (Reason: Pain) carbidopa-levodopa 25-100 mg tablet 1 tab PO BID losartan 25 mg tablet 25 mg PO QDAY pioglitazone [Actos] 45 MG tablet 45 mg PO DAILY simvastatin 40 MG tablet 40 mg PO QHS primidone 250 MG tablet 250 mg PO TID glimepiride 4 MG tablet 4 mg PO DAILY topiramate 50 MG tablet 50 mg PO BID fenofibrate 160 MG tablet 160 mg PO DAILY insulin glargine [Lantus Solostar U-100 Insulin] 100 unit/mL (3 mL) insulin pen 15 unit subcut .Daily Patient Comments: 15 units daily ipratropium-albuterol 0.5 mg-3 mg(2.5 mg base)/3 mL solution for nebulization 3 ml INHALATION Q6H Qty: 180 11RF lidocaine-prilocaine 2.5-2.5 % cream 1 applic topical DAILY PRN PRN (Reason: port access) 30 Days Qty: 1 2RF Breztri Aerosphere 160-9-4.8 mcg/actuation HFA aerosol inhaler 2 inh inhalation BID Qty: 10.7 6RF Discontinued gabapentin 800 mg tablet 800 mg PO TID prednisone 20 mg tablet 60 mg PO QDAY Qty: 15 0RF Rx Instructions: administer with food or milk Referrals / Follow Up: Ruben Angela DEVELOPMENTAL EDUCATION INSTRUCTOR, DEVELOPMENTAL EDUCATION INSTRUCTOR-C [Primary Care Provider] - Within 2 Weeks Disposition Disposition (needs filled in before D/C Order can be placed): Home Health Service Charges/Coding Visit Charges Inpatient E&M: 85875 Disch Hosp >30min
[2024-10-09 16:43] LABS: Bedside Glucose 286 mg/dL (74-106)
== END 2024-10-09 18:39 | disposition home health service (06) | DRG 191 ==
LOC: ED 14:42 → MS3 15:58
PROVIDERS: Family Medicine; Nurse Practitioner; Admitting Provider Internal Medicine; Emergency Provider Emergency Medicine; PCP Nurse Practitioner Family; Visit Provider Internal Medicine
DX: J44.1 Chronic obstructive pulmonary disease with (acute) exacerbation (principal); R78.81 Bacteremia; N13.30 Unspecified hydronephrosis; N13.4 Hydroureter; D63.1 Anemia in chronic kidney disease; E11.22 Type 2 diabetes mellitus with diabetic chronic kidney disease; B96.89 Other specified bacterial agents as the cause of diseases classified elsewhere; B95.61 Methicillin susceptible Staphylococcus aureus infection as the cause of diseases classified elsewhere; G20.A1 Parkinson's disease without dyskinesia, without mention of fluctuations; N18.31 Chronic kidney disease, stage 3a; J43.9 Emphysema, unspecified; I12.9 Hypertensive chronic kidney disease with stage 1 through stage 4 chronic kidney disease, or unspecified chronic kidney disease; F32.A Depression, unspecified; I08.3 Combined rheumatic disorders of mitral, aortic and tricuspid valves; E66.9 Obesity, unspecified; Z93.6 Other artificial openings of urinary tract status; E11.65 Type 2 diabetes mellitus with hyperglycemia; E11.40 Type 2 diabetes mellitus with diabetic neuropathy, unspecified; M54.50 Low back pain, unspecified; K80.20 Calculus of gallbladder without cholecystitis without obstruction; F17.210 Nicotine dependence, cigarettes, uncomplicated; E78.5 Hyperlipidemia, unspecified; I25.10 Atherosclerotic heart disease of native coronary artery without angina pectoris; Z79.4 Long term (current) use of insulin; I25.2 Old myocardial infarction; Z79.82 Long term (current) use of aspirin; Z79.84 Long term (current) use of oral hypoglycemic drugs; Z79.891 Long term (current) use of opiate analgesic; Z68.36 Body mass index [BMI] 36.0-36.9, adult; Z20.828 Contact with and (suspected) exposure to other viral communicable diseases; Z82.49 Family history of ischemic heart disease and other diseases of the circulatory system; R01.1 Cardiac murmur, unspecified; Z90.79 Acquired absence of other genital organ(s); Z95.1 Presence of aortocoronary bypass graft; Z79.899 Other long term (current) drug therapy
CPT/HCPCS: 36415; 71045; 72158; 74176; 80048; 80053; 80202; 81001; 82607; 82962; 83605; 84443; 85025; 85610; 85730; 87040; 87070; 87077; 87086; 87149; 87186; 87205; 87633; 87811; 93005; 93306; 94640; 94668; 96365; 97110; 97116; 97162; 97165; 97530; 97535; 97802; 99283; 99285; Q9957; A4216; C8929

== ENCOUNTER 2024-10-13 12:27 | Outpatient (CLI) | payer MEDICARE, SELFPAY ==
[2024-10-13] MEDS: 0.9% NaCl IVPB Med Flush (250 mL) 15 ML IV (12:40)
[2024-10-13] MEDS: 0.9% NaCl PICC Flush IV ×2 (12:40→13:42)
[2024-10-13] MEDS: Cefepime HCl 2 GM in 0.9% Normal Saline (100mL MB+) 100 ML IV (12:41)
[2024-10-13 12:45] VITALS: BP 109/51; PULSE 88; RESP 20; TEMP 36.3; O2SAT 92; BMI 35.7
[2024-10-13 13:44] VITALS: BP 113/55; PULSE 78; RESP 16; TEMP 36.4
== END 2024-10-13 23:59 | disposition home or self-care (01) ==
LOC: MEDOUTP 12:27
PROVIDERS: PCP Nurse Practitioner Family; Referring Provider Internal Medicine Infectious Disease; Visit Provider Internal Medicine Infectious Disease
DX: A41.01 Sepsis due to Methicillin susceptible Staphylococcus aureus (principal)
CPT/HCPCS: 96365; J7050; A4216

== ENCOUNTER 2024-10-14 12:33 | Outpatient (RCR) | payer MEDICARE, SELFPAY ==
[2024-10-14 13:03] LABS: Hematocrit 40.3 % (40-54); Hemoglobin 12.8 g/dL (13.0-16.5); Mean Corp Hgb Conc 31.8 g/dL (32-36); Mean Corpuscular Hgb 31.1 pg (27.0-32.0); Mean Corpuscular Volume 97.8 fL (80-94); Mean Platelet Vol. 9.9 fl (6.2-12.0); Platelet Count 389 K/mm3 (150-450); RBC Distribution Width CV 13.8 % (11.6-14.6); Red Blood Count 4.12 M/mm3 (4.6-6.2); White Blood Count 13.4 K/mm3 (4.4-11.0)
[2024-10-14 13:17] LABS: Anion Gap 5 (5-15); BUN 32 mg/dL (7-18); BUN/Creat Ratio 24.4 RATIO (10-20); Calcium,Total 8.8 mg/dL (8.5-10.1); Chloride 99 mmol/L (98-107); Creatinine, Serum 1.31 mg/dL (0.70-1.30); EST Glomerular Filtration Rate 56 mL/min (>60); Est Glom Filt Rate - Afr Amer 67 mL/min (>60); Glucose 296 mg/dL (74-106); Potassium 5.1 mmol/L (3.5-5.1); Sodium Level 132 mmol/L (136-145)
== END 2024-10-25 18:00 | disposition home or self-care (01) ==
LOC: HHLAB 12:33
PROVIDERS: PCP Nurse Practitioner Family; Referring Provider Internal Medicine Infectious Disease; Visit Provider Internal Medicine Infectious Disease
DX: A41.01 Sepsis due to Methicillin susceptible Staphylococcus aureus (principal)
CPT/HCPCS: 80048; 85027

== ENCOUNTER 2024-10-17 10:12 | Emergency (ER) | payer MEDICARE, SELFPAY ==
[2024-10-17 10:13] VITALS: BP 118/90; PULSE 75; RESP 18; TEMP 36.6; O2SAT 100
[2024-10-17 10:15] VITALS: BMI 36.7
--- NOTE | 2024-10-17 10:28 | EX.ED.DYSGE1 ---
HPI History of Present Illness Chief Complaint: Allergic Reaction Detail of Chief Complaint: Allergic reaction to cefepime Informant: patient and spouse/S.O. Onset/Context/Timing Onset: Days Timing: Continuous Quality: Patient was noted to have a rash to cefazolin changed to cefepime Location: Now presents because of swelling, worsening rash Current Severity: Severe Maximum Severity: Severe Worsened by: Cefepime Relieved by: Nothing Associated Symptoms Associated Symptoms: Wheezing, swelling Narrative Narrative: Patient is a 84-year-old male. He has history of coronary disease, pulmonary hypertension, diabetes, hyperlipidemia, atherosclerotic heart disease, COPD who presents because of swelling. He does not complain of tongue swelling. He was unaware that his lower lip is swollen. His lip size was compared to photograph from [employer] driver's license. Patient's informing that his arms are significantly swollen. He has serous drainage from small open areas. Patient states the rash never resolved. Prior similar symptoms: Yes Recent Illness/Hospitalization: Yes [facility] Medical History MSSA bacteremia Acute hyperglycemia COPD (chronic obstructive pulmonary disease) Blood bacterial culture positive Arthritis of sacroiliac joint DDD (degenerative disc disease) Lumbar spondylosis Candidal dermatitis Candidiasis Sleep apnea Kidney disease Smoker H/O cardiovascular stress test History of left heart catheterization (~02/24/10) Cardiology follow-up encounter Port-A-Cath in place (~01/24/21) History of blood transfusion bladder instill antica agent Low back pain Primary hypertension Emphysema, unspecified Congenital stenosis and stricture of esophagus Cardiac murmur, unspecified Atherosclerotic heart disease Anemia Acute kidney failure, unspecified Gross hematuria BPH with obstruction/lower urinary tract symptoms Bladder cancer Nicotine dependence, cigarettes, uncomplicated JOHN (obstructive sleep apnea) COPD (chronic obstructive pulmonary disease) Acute GA, inferior wall CKD stage 3 Diabetes mellitus Hyperlipidemia Pulmonary HTN CAD (coronary artery disease) Diabetic neuropathy Mitral valve regurgitation Tricuspid valve regurgitation B12 deficiency Parkinson disease Pneumonia Tobacco use disorder, continuous Obesity Home Medications ?Medication ?Instructions ?Recorded ?Last Taken ?Type duloxetine 60 mg capsule,delayed 60 mg PO BID DEPRESSION 03/12/18 Unknown History release omega-3 fatty acids 1,000 mg 1,000 mg PO QDAY SUPPLEMENT 03/12/18 Unknown History capsule fenofibrate 160 mg tablet 160 mg PO DAILY CHOLESTEROL 01/14/21 Unknown History glimepiride 4 mg tablet 4 mg PO DAILY DIABETIC 01/14/21 Unknown History pioglitazone 45 mg tablet (Actos) 45 mg PO DAILY DIABETES 01/14/21 Unknown History primidone 250 mg tablet 250 mg PO TID PARKINSONS 01/14/21 05/06/21 History simvastatin 40 mg tablet 40 mg PO QHS CHOLESTEROL 01/14/21 Unknown History topiramate 50 mg tablet 50 mg PO BID TREMORS 01/14/21 01/24/21 05:30 History 50 MG hydrocodone-acetaminophen 5-325mg 1 tab PO Q6H PRN Pain 03/23/21 Unknown History 5mg-325mg ipratropium 0.5 mg-albuterol 3 mg 3 ml inhalation Q6H COPD J44.9 07/03/22 Unknown Rx (2.5 mg base)/3 mL nebulization #180 mL soln lidocaine-prilocaine 2.5 %-2.5 % 1 applic topical DAILY PRN PRN 08/10/23 Unknown Rx topical cream port access 30 days #1 tube carbidopa 25 mg-levodopa 100 mg 1 tab PO BID 10/31/23 Unknown History tablet losartan 25 mg tablet 25 mg PO QDAY 04/01/24 Unknown History insulin glargine 100 unit/mL (3 15 unit subcut .Daily Diabetes 10/05/24 Unknown History mL) subcutaneous pen (Lantus Solostar U-100 Insulin) cefazolin 2 gram intravenous 2 g IV Q8H 10 days 10/09/24 Unknown Rx solution prednisone 20 mg tablet 20 mg PO BIDCM #11 tabs 10/09/24 Unknown Rx budesonide 160 mcg-glycopyr 9 2 inh inhalation BID #10.7 grams 10/16/24 Unknown Rx mcg-formot 4.8 mcg/actuation HFA inhaler (Breztri Aerosphere) diphenhydramine HCl 25 mg capsule 25 mg PO Q8 #10 caps 10/17/24 Unknown Rx (Benadryl) famotidine 20 mg tablet (Pepcid) 20 mg PO BID #7 tabs 10/17/24 Unknown Rx prednisone 20 mg tablet 40 mg (2 x 20 mg) PO DAILY #12 tabs 10/17/24 Unknown Rx Allergy/AdvReac Type Severity Reaction Status Date / Time cefepime Allergy Severe Anaphylaxis Verified 10/17/24 14:05 cefazolin Allergy Intermediate Hives Verified 10/17/24 10:13 Family History Mother Ovarian cancer Father Heart disease Brother Leukemia Surgical History Status post radical cystoprostatectomy Hx of transurethral resection of prostate (~01/05/21) History of quadruple bypass History of hand surgery History of ankle surgery Hx of cystoscopy S/P TURP Previous back surgery S/P CABG x 4 Social History current occupational status: retired Smoking Status: Light Smoker (<10/day) alcohol intake: never substance use type: does not use caffeine: Yes Type: coffee Number of servings: 1 eating out: rarely or never ROS ROS ED Constitutional Constitutional ED: Denies chills, fever(s), subjective or sweats Eyes Eyes: Denies blurry vision or change in vision ENT ENT ED: Denies ear pain or rhinorrhea Cardiovascular Cardiovascular: Denies chest pain, orthopnea, palpitations or paroxysmal nocturnal dyspnea Respiratory/Chest Respiratory/Chest: Reports cough, dyspnea and dyspnea on exertion; Denies orthopnea or paroxysmal nocturnal dyspnea Gastrointestinal Gastrointestinal: Denies abdominal pain, nausea or vomiting Musculoskeletal Musculoskeletal: Denies arthralgias or myalgias Integumentary Reports rash Neurologic Neurologic: Denies headache(s) or paresthesias Hematologic/Lymphatic Hematologic/Lymphatic: Reports systems reviewed and no addt'l complaints, except as documented EXAM Physical Exam Const Vital Signs: 10/17/24 10:13 10/17/24 10:50 10/17/24 12:12 Temperature 97.8 F Temperature Source Temporal Pulse Rate 75 74 77 Respiratory Rate 18 18 19 H Respiratory Pattern Normal Blood Pressure 118/90 H Blood Pressure Mean 99 Pulse Ox 100 98 Oxygen Delivery Method Room Air Room Air 10/17/24 14:00 Temperature Temperature Source Pulse Rate 54 L Respiratory Rate 19 H Respiratory Pattern Blood Pressure 112/58 L Blood Pressure Mean 76 Pulse Ox 97 Oxygen Delivery Method Room Air Allergic reaction to cefazolin and cefepime Positive well nourished and well developed Constitutional Narrative: BMI is 36.7. General Appearance ED: well developed HEENT Reports moist mucous membranes HEENT Narrative: There is swelling of the lower lip. Uvula may be slightly swollen. Patient has slight hoarse voice. Conjunctive is normal. Sclera is anicteric. Eyes PERRL and EOMs intact bilaterally Neck no lymphadenopathy, supple and no JVD Neck Narrative: Trachea is midline. Patient has inspiratory and expiratory stridor. Chest Wall inspection of chest normal and palpation of chest normal Resp normal respiratory effort and No clear to auscultation bilaterally Auscultation: wheezes expiratory wheezes and throughout Cardio regular rate, regular rhythm, S1 normal heart sound, S2 normal heart sound and no murmurs GI normal to inspection, nondistended, normoactive bowel sounds, non-tender, non-distended and no masses; Negative for hepatosplenomegaly Back/Spine no CVA tenderness Extremity Extremity Narrative: Patient's extremities are swollen. He has serous drainage from areas that are open. There is no evidence of cellulitis. In my opinion patient's erythematous rash is due to allergic reaction in light of the fact that he has angioedema, stridor and known reaction to cefazolin with hives and presumed itching to cefepime. In my opinion patient has an anaphylactic reaction to cefepime and is contraindicated for any future use. General Extremety ED: Yes edema General Extremity: edema Neuro oriented x3 and CN's II-XII intact bilaterally Sensorium / Orientation: alert Psych mental status grossly normal Skin Skin Narrative: Blanching generalized erythematous rash. This involves his entire body from his hairline down to his feet MDM MDM MDM Narrative Medical decision making narrative: Patient with anaphylactic reaction. He was treated with epinephrine, albuterol, Pepcid, Benadryl and Solu-Medrol. Patient was reassessed at 1100. Redness is not as intense. His lip no longer appear swollen. His voice has improved. He has slight expiratory stridor appreciated now. There is no inspiratory stridor. His wheezing has improved markedly with 1 albuterol treatment. Patient was reassessed at approximately 1205. His rash had improved by 50%. His lip looks better. He was breathing more easily. Patient was reassessed at 1255. He no longer has swelling of his lip. There is no change in his voice. There is no stridor. His rash has been proved even more. Patient was reexamined prior to discharge at 1420. Patient's rash is essentially resolved. His swelling of his extremities is improved markedly. He has no angioedema. He has no dysphonia. He has no stridor. Lungs are clear without wheezing. 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 and Performing Direct Patient Care at Bedside Discharge Plan Triage Chief Complaint: Allergic Reaction ED Provider: Galo [place] Dx/Rx/DC Orders Clinical Impression: Anaphylactic reaction due to adverse effect of correct drug or medicament properly administered, initial encounter, CAD (coronary artery disease), Pulmonary HTN, Hyperlipidemia, Diabetes mellitus, Allergic angioedema, Biphasic stridor, Acute bronchospasm, BMI 36.0-36.9,adult Instructions: ED Anaphylaxis Prescriptions: New diphenhydramine HCl [Benadryl] 25 mg capsule 25 mg PO Q8 Qty: 10 0RF famotidine [Pepcid] 20 mg tablet 20 mg PO BID Qty: 7 0RF prednisone 20 mg tablet 40 mg PO DAILY Qty: 12 0RF No Action omega-3 fatty acids 1,000 mg capsule 1,000 mg PO QDAY duloxetine 60 mg capsule,delayed release(DR/EC) 60 mg PO BID hydrocodone-acetaminophen 5-325 mg tablet 1 tab PO Q6H PRN (Reason: Pain) carbidopa-levodopa 25-100 mg tablet 1 tab PO BID losartan 25 mg tablet 25 mg PO QDAY Breztri Aerosphere 160-9-4.8 mcg/actuation HFA aerosol inhaler 2 inh inhalation BID Qty: 10.7 6RF pioglitazone [Actos] 45 MG tablet 45 mg PO DAILY simvastatin 40 MG tablet 40 mg PO QHS primidone 250 MG tablet 250 mg PO TID glimepiride 4 MG tablet 4 mg PO DAILY topiramate 50 MG tablet 50 mg PO BID fenofibrate 160 MG tablet 160 mg PO DAILY insulin glargine [Lantus Solostar U-100 Insulin] 100 unit/mL (3 mL) insulin pen 15 unit subcut .Daily Patient Comments: 15 units daily cefazolin 2 gram recon soln 2 g IV Q8H 10 Days Rx Instructions: stop date 10/20/24. Dx: mssa bacteremia. weekly bmp, cbc; fax to [phone]. Routine midline care per protocol. prednisone 20 mg Tablet 20 mg PO BIDCM Qty: 11 0RF Rx Instructions: 1 twice a day for 3 days, then 1 daily for 3 days, then one half daily for 4 days then stop ipratropium-albuterol 0.5 mg-3 mg(2.5 mg base)/3 mL solution for nebulization 3 ml INHALATION Q6H Qty: 180 11RF lidocaine-prilocaine 2.5-2.5 % cream 1 applic topical DAILY PRN PRN (Reason: port access) 30 Days Qty: 1 2RF Primary Care Provider: Ruben Angela NP Referrals: Ruben Angela NP, ACCOUNT STRATEGIST-C [Primary Care Provider] - Print Language: [place] Disposition Disposition: Home, Self Care
[2024-10-17] MEDS: Epi Pen (EQUIV) 0.3 MG Syringe IM (10:29)
[2024-10-17] MEDS: DiphenhydrAMINE 50 MG/ML Syringe IV (10:34)
[2024-10-17] MEDS: MethylPREDNISolone 125 MG/2 ML Vial IV (10:34)
[2024-10-17] MEDS: Albuterol 2.5 MG/3 ML VIAL.NEB. INHALATION (10:35)
[2024-10-17] MEDS: Famotidine 200 MG/20 ML MDV 20 MG in 0.9% Normal Saline (Pres. free 8 ML 300 MG IV (10:49)
[2024-10-17 10:50] VITALS: PULSE 74; RESP 18
[2024-10-17 12:12] VITALS: PULSE 77; RESP 19; O2SAT 98
[2024-10-17 14:00] VITALS: BP 112/58; PULSE 54; RESP 19; O2SAT 97
[2024-10-17 14:48] VITALS: BP 131/81; PULSE 65; RESP 16; TEMP 36.6; O2SAT 96
== END 2024-10-17 14:49 | disposition home or self-care (01) ==
PROVIDERS: Emergency Provider Emergency Medicine; PCP Nurse Practitioner Family; Visit Provider Emergency Medicine
DX: T88.6XXA Anaphylactic reaction due to adverse effect of correct drug or medicament properly administered, initial encounter (principal); G20.A1 Parkinson's disease without dyskinesia, without mention of fluctuations; I27.20 Pulmonary hypertension, unspecified; E11.22 Type 2 diabetes mellitus with diabetic chronic kidney disease; E11.40 Type 2 diabetes mellitus with diabetic neuropathy, unspecified; Z79.4 Long term (current) use of insulin; N18.30 Chronic kidney disease, stage 3 unspecified; T36.1X5A Adverse effect of cephalosporins and other beta-lactam antibiotics, initial encounter; L27.0 Generalized skin eruption due to drugs and medicaments taken internally; I12.9 Hypertensive chronic kidney disease with stage 1 through stage 4 chronic kidney disease, or unspecified chronic kidney disease; E78.5 Hyperlipidemia, unspecified; I25.10 Atherosclerotic heart disease of native coronary artery without angina pectoris; I25.2 Old myocardial infarction; J98.01 Acute bronchospasm; R06.1 Stridor; F17.200 Nicotine dependence, unspecified, uncomplicated; Z95.1 Presence of aortocoronary bypass graft; Z79.84 Long term (current) use of oral hypoglycemic drugs; Z79.899 Other long term (current) drug therapy
CPT/HCPCS: 94640; 96372; 96374; 96375; 99282; A4216; J3490

== ENCOUNTER → 2024-10-24 | Outpatient (CLI) | payer MEDICARE, SELFPAY ==
--- NOTE | 2024-10-24 08:36 | NM_ITS ---
CLINICAL: 84-year-old male with history of prostate and apparent urinary bladder carcinoma. WHOLE BODY 99m Tc MDP RADIONUCLIDE BONE SCINTIGRAPHY COMPARISON: Previous whole body bone scintigraphy study dated 10/23/2023 FINDINGS: Following the intravenous administration of 26.1 mCi of 99m Tc MDP, whole body bone images reveal: 1. Increased radiopharmaceutical concentration remains apparent in the third lumbar vertebra posteriorly on the left and right, currently visualized in the acromioclavicular and sternoclavicular compartments of both shoulders, the visualized bilateral wrists, the right hand, both elbow articulations, the left midfoot, the mid cervical spine posteriorly on the left and right and newly defined in the first lumbar vertebra. 2. The remaining skeletal structures are scintigraphically unremarkable with normal-appearing renal images identified. Increased uptake noted in the midline maxilla is most consistent with periodontal disease and/or periostitis. There is persistent visualization of an apparent urinary diversion-ileal conduit. NM/Bone Scan Whole Body IMPRESSION: 1. Increased uptake identified in the cervical and lumbar spine, bilateral shoulder and wrist articulations, the right hand, both elbows, the left midfoot are consistent with degenerative arthrosis. Plain film radiography correlation may be of benefit in the region of the upper lumbar spine to account for newly identified uptake in the first lumbar vertebra. 2. Overall compared to the previous whole body bone scintigraphy study dated 10/23/2023, there is minimal interval change. Electronically Signed: Ruben Dominguez, at 9:58 EST ,
--- NOTE | 2024-10-24 08:36 | NM_ITS ---
CLINICAL: 84-year-old male with history of prostate and apparent urinary bladder carcinoma. WHOLE BODY 99m Tc MDP RADIONUCLIDE BONE SCINTIGRAPHY COMPARISON: Previous whole body bone scintigraphy study dated 10/23/2023 FINDINGS: Following the intravenous administration of 26.1 mCi of 99m Tc MDP, whole body bone images reveal: 1. Increased radiopharmaceutical concentration remains apparent in the third lumbar vertebra posteriorly on the left and right, currently visualized in the acromioclavicular and sternoclavicular compartments of both shoulders, the visualized bilateral wrists, the right hand, both elbow articulations, the left midfoot, the mid cervical spine posteriorly on the left and right and newly defined in the first lumbar vertebra. 2. The remaining skeletal structures are scintigraphically unremarkable with normal-appearing renal images identified. Increased uptake noted in the midline maxilla is most consistent with periodontal disease and/or periostitis. There is persistent visualization of an apparent urinary diversion-ileal conduit. NM/Bone Scan Whole Body IMPRESSION: 1. Increased uptake identified in the cervical and lumbar spine, bilateral shoulder and wrist articulations, the right hand, both elbows, the left midfoot are consistent with degenerative arthrosis. Plain film radiography correlation may be of benefit in the region of the upper lumbar spine to account for newly identified uptake in the first lumbar vertebra. 2. Overall compared to the previous whole body bone scintigraphy study dated 10/23/2023, there is minimal interval change. Electronically Signed: Ruben Dominguez, at 9:58 EST ,
== END | disposition home or self-care (01) ==
PROVIDERS: PCP Nurse Practitioner Family; Referring Provider Internal Medicine Hematology & Oncology; Visit Provider Internal Medicine Hematology & Oncology
DX: C67.4 Malignant neoplasm of posterior wall of bladder (principal); C61 Malignant neoplasm of prostate
CPT/HCPCS: 78306; A9503

== ENCOUNTER → 2024-10-31 | Outpatient (CLI) | payer MEDICARE, SELFPAY ==
--- NOTE | 2024-10-31 08:33 | CT_ITS ---
EXAM: CT CHEST, ABDOMEN AND PELVIS WITH INTRAVENOUS CONTRAST CLINICAL INDICATION: U.B. CANCER IV CONTRAST ONLY TECHNIQUE: Helically acquired images were obtained of the chest, abdomen and pelvis with intravenous contrast. This CT exam was performed using one or more of the following dose reduction techniques: automated exposure control, adjustment of the mA and/or kV according to patient size, and/or use of iterative reconstruction technique. CONTRAST: IV 100mL Isovue-300 COMPARISON: No relevant prior studies available. FINDINGS: CHEST: LUNGS AND PLEURAL SPACES: Unremarkable. No mass. No consolidation or edema. No pleural effusion or thickening. No pneumothorax. HEART: Unremarkable. Heart size is normal. No pericardial effusion. MEDIASTINUM: Unremarkable. No mediastinal or hilar adenopathy. Esophagus is unremarkable. No hiatal hernia. THYROID: Unremarkable. No thyroid lesions. ABDOMEN: LIVER: Unremarkable. Homogeneous. No focal mass. GALLBLADDER AND BILE DUCTS: There are multiple gallstones present. There is no inflammation. No gallbladder distention or wall edema. No intra- or extrahepatic biliary ductal dilation. PANCREAS: Unremarkable. No focal cystic or solid mass. SPLEEN: Unremarkable. Normal size without focal cystic or solid mass. ADRENALS: Unremarkable. No nodules. KIDNEYS AND URETERS: Unremarkable. Normal renal size and position. No hydronephrosis. STOMACH AND BOWEL: There is a right lower quadrant ostomy. No stomach or bowel distention. No focal inflammatory change. PELVIS: APPENDIX: No evidence of acute appendicitis. BLADDER: Patient status post cystectomy. REPRODUCTIVE: Unremarkable as visualized. No mass. CHEST, ABDOMEN and PELVIS: INTRAPERITONEAL SPACE: Unremarkable. No ascites or other fluid collection. No free air. BONES/JOINTS: Unremarkable. No suspicious lytic or blastic abnormality. SOFT TISSUES: Unremarkable. No discrete abdominal or pelvic wall hernia. VASCULATURE: Unremarkable. Aorta is non-dilated. No aortic dissection. No obvious central pulmonary embolism although this study was not performed with the pulmonary embolism protocol. LYMPH NODES: Unremarkable. No enlarged lymph nodes. CT/CT Chest, Abd, Pel w/Contrast IMPRESSION: Status post cystectomy with ileal loop. There are no acute abnormalities in the chest, abdomen or pelvis. There has been no significant change from the reference exam. Electronically Signed: Alvin Maciel MD at 18:39 EST ,
--- NOTE | 2024-10-31 08:40 | RAD_ITS ---
EXAM: XR CHEST, 2 VIEWS CLINICAL INDICATION: PLEURAL EFFUSION ON R, COPD TECHNIQUE: Frontal and lateral views of the chest. COMPARISON: 10/03/2024 FINDINGS: LUNGS AND PLEURAL SPACES: Unremarkable. No consolidation or edema. No pneumothorax. No effusion. HEART: Unremarkable. Cardiac silhouette not enlarged. MEDIASTINUM: Central airways and mediastinal contour are unremarkable. BONES/JOINTS: Unremarkable. No acute fracture. SOFT TISSUES: Unremarkable. TUBES, LINES AND DEVICES: Right-sided Port-A-Cath in stable position. RAD/Chest PA and Lateral IMPRESSION: No acute findings in the chest. Electronically Signed: Alvin Maciel MD at 18:08 EST ,
== END | disposition home or self-care (01) ==
LOC: CT 08:33
PROVIDERS: PCP Nurse Practitioner Family; Referring Provider Internal Medicine Hematology & Oncology; Visit Provider Internal Medicine Hematology & Oncology
DX: J90 Pleural effusion, not elsewhere classified (principal); C67.4 Malignant neoplasm of posterior wall of bladder; J44.1 Chronic obstructive pulmonary disease with (acute) exacerbation; C61 Malignant neoplasm of prostate
CPT/HCPCS: 71046; 71260; 74177; Q9967

== ENCOUNTER 2024-11-21 16:52 | Inpatient (IN) | payer MEDICARE, SELFPAY ==
[2024-11-21 16:54] VITALS: BP 136/64; PULSE 60; RESP 20; TEMP 36.5; O2SAT 100
[2024-11-21 17:20] VITALS: BMI 35.7
--- NOTE | 2024-11-21 17:30 | EKG12_ITS ---
Test Reason : GENERAL Blood Pressure : */* mmHG Vent. Rate : 58 BPM Atrial Rate : 58 BPM P-R Int : 178 ms QRS Dur : 100 ms QT Int : 422 ms P-R-T Axes : 88 37 23 degrees QTcB Int : 414 ms Sinus bradycardia Otherwise normal ECG Confirmed by JENNIFER GEORGES, AKIL ([id number]), deputy editor in chief MANJIT RAMIREZ ([id number]) on 11/24/2024 6:44:53 AM Referred By: Confirmed By: AKIL RODRIGUEZ MD
--- NOTE | 2024-11-21 17:32 | CT_ITS ---
EXAMINATION : Head CT w/out contrast HISTORY : head injury COMPARISON : None. TECHNIQUE : Multiple contiguous axial images were obtained from the skull base to the vertex without intravenous contrast. A radiation dose optimization technique was used for this scan. FINDINGS : There is no evidence for acute intracranial hemorrhage, mass effect, or midline shift. There is no extra-axial fluid collection. There are periventricular white matter changes consistent with chronic microvascular ischemic disease. There is sulcal widening and ventricular enlargement consistent with cerebral atrophy. There is normal gonzalez-white differentiation, without CT evidence of acute ischemia or infarct. The skull base and calvarium are unremarkable. The orbits are unremarkable. The paranasal sinuses are clear. The mastoid air cells are well-aerated. The soft tissues are unremarkable. CT/Brain/Head without Contrast IMPRESSION: No acute intracranial abnormality. Chronic involutional and ischemic changes of the brain. Electronically Signed: Hardeep Braun MD at 18:53 EST ,
--- NOTE | 2024-11-21 17:44 | EX.ED.DYSGE1 ---
HPI <ELVER Goodman - Last Filed: 11/21/24 18:37> History of Present Illness Chief Complaint: GI Bleed Narrative Narrative: Patient is a 84-year-old male with history of Parkinson's, history of bladder and prostate cancer now has a urostomy, hypertension, COPD who presents to the emergency department for dizziness, falls, bloody stools over the last 3 weeks. Patient states he is having 1 bloody stool a day. He is currently not on any blood thinners. He tried to call a GI doctor however cannot get until multiple weeks. Patient has not had a colonoscopy for greater than 10 years. Here for evaluation. [facility] <ELVER Goodman - Last Filed: 11/21/24 18:37> [facility] Medical History MSSA bacteremia Acute hyperglycemia COPD (chronic obstructive pulmonary disease) Blood bacterial culture positive Arthritis of sacroiliac joint DDD (degenerative disc disease) Lumbar spondylosis Candidal dermatitis Candidiasis Sleep apnea Kidney disease Smoker H/O cardiovascular stress test History of left heart catheterization (~02/24/10) Cardiology follow-up encounter Port-A-Cath in place (~01/24/21) History of blood transfusion bladder instill antica agent Low back pain Primary hypertension Emphysema, unspecified Congenital stenosis and stricture of esophagus Cardiac murmur, unspecified Atherosclerotic heart disease Anemia Acute kidney failure, unspecified Gross hematuria BPH with obstruction/lower urinary tract symptoms Bladder cancer Nicotine dependence, cigarettes, uncomplicated JOHN (obstructive sleep apnea) COPD (chronic obstructive pulmonary disease) Acute NE, inferior wall CKD stage 3 Diabetes mellitus Hyperlipidemia Pulmonary HTN CAD (coronary artery disease) Diabetic neuropathy Mitral valve regurgitation Tricuspid valve regurgitation B12 deficiency Parkinson disease Pneumonia Tobacco use disorder, continuous Obesity Home Medications ?Medication ?Instructions ?Recorded ?Last Taken ?Type duloxetine 60 mg capsule,delayed 60 mg PO BID DEPRESSION 03/12/18 Unknown History release omega-3 fatty acids 1,000 mg 1,000 mg PO QDAY SUPPLEMENT 03/12/18 Unknown History capsule fenofibrate 160 mg tablet 160 mg PO DAILY CHOLESTEROL 01/14/21 Unknown History glimepiride 4 mg tablet 4 mg PO DAILY DIABETIC 01/14/21 Unknown History pioglitazone 45 mg tablet (Actos) 45 mg PO DAILY DIABETES 01/14/21 Unknown History primidone 250 mg tablet 250 mg PO TID PARKINSONS 01/14/21 05/06/21 History simvastatin 40 mg tablet 40 mg PO QHS CHOLESTEROL 01/14/21 Unknown History topiramate 50 mg tablet 50 mg PO BID TREMORS 01/14/21 01/24/21 05:30 History 50 MG hydrocodone-acetaminophen 5-325mg 1 tab PO Q6H PRN Pain 03/23/21 Unknown History 5mg-325mg ipratropium 0.5 mg-albuterol 3 mg 3 ml inhalation Q6H COPD J44.9 07/03/22 Unknown Rx (2.5 mg base)/3 mL nebulization #180 mL soln lidocaine-prilocaine 2.5 %-2.5 % 1 applic topical DAILY PRN PRN 08/10/23 Unknown Rx topical cream port access 30 days #1 tube carbidopa 25 mg-levodopa 100 mg 1 tab PO BID 10/31/23 Unknown History tablet losartan 25 mg tablet 25 mg PO QDAY 04/01/24 Unknown History insulin glargine 100 unit/mL (3 15 unit subcut .Daily Diabetes 10/05/24 Unknown History mL) subcutaneous pen (Lantus Solostar U-100 Insulin) cefazolin 2 gram intravenous 2 g IV Q8H 10 days 10/09/24 Unknown Rx solution prednisone 20 mg tablet 20 mg PO BIDCM #11 tabs 10/09/24 Unknown Rx budesonide 160 mcg-glycopyr 9 2 inh inhalation BID #10.7 grams 10/16/24 Unknown Rx mcg-formot 4.8 mcg/actuation HFA inhaler (Breztri Aerosphere) diphenhydramine HCl 25 mg capsule 25 mg PO Q8 #10 caps 10/17/24 Unknown Rx (Benadryl) famotidine 20 mg tablet (Pepcid) 20 mg PO BID #7 tabs 10/17/24 Unknown Rx prednisone 20 mg tablet 40 mg (2 x 20 mg) PO DAILY #12 tabs 10/17/24 Unknown Rx Allergy/AdvReac Type Severity Reaction Status Date / Time cefepime Allergy Severe Anaphylaxis Verified 11/21/24 16:55 cefazolin Allergy Intermediate Hives Verified 11/21/24 16:55 Family History Mother Ovarian cancer Father Heart disease Brother Leukemia Surgical History Status post radical cystoprostatectomy Hx of transurethral resection of prostate (~01/05/21) History of quadruple bypass History of hand surgery History of ankle surgery Hx of cystoscopy S/P TURP Previous back surgery S/P CABG x 4 Social History current occupational status: retired Smoking Status: Light Smoker (<10/day) alcohol intake: never substance use type: does not use caffeine: Yes Type: coffee Number of servings: 1 eating out: rarely or never ROS <ELVER Goodman - Last Filed: 11/21/24 18:37> ROS ED ROS Narrative constitutional: Negative for fever, chills, weight loss. Positive weakness Eyes: Negative for vision loss, vision change, double vision ENT: Negative for any sore throat, ear pain, congestion Cardiovascular: Negative for any chest pain, tightness, palpitations Respiratory: Negative for any cough, sputum production, hemoptysis, dyspnea, dyspnea on exertion, orthopnea Gastrointestinal: Negative for any abdominal pain, nausea, vomiting, diarrhea, constipation blood in vomit. Positive for blood in stool : Negative for any urinary frequency, dysuria, retention, blood in urine Muscle skeletal: Negative for any neck pain, back pain Neurological: Negative for any headache, syncope, dizziness Skin: Negative for any rashes, itching, abrasions, lacerations Psychiatric: Negative for any depression, anxiety, stress, suicidal ideation, homicidal ideation Hematologic: Negative for any excessive bruising, easy bleeding EXAM <ELVER Goodman - Last Filed: 11/21/24 18:37> Physical Exam Narrative Exam Narrative: Vital signs reviewed. HEET: Head normocephalic atraumatic, TMs clear bilaterally. Posterior pharynx is clear, moist mucous membranes. Nares clear bilaterally. Neck: Supple with no lymphadenopathy or tenderness. No signs of meningismus. Cardiac: Regular rate and rhythm no murmurs gallops or rubs, equal peripheral pulses bilaterally. Respiratory: Lungs clear to auscultation bilaterally. No chest tenderness. Abdomen: Soft, nontender, nondistended. No abdominal bruit or pulsatile masses. No hepatosplenomegaly. Urostomy clear urine Extremities: No peripheral edema, no signs of gross trauma or deformity. Active full range of motion of all extremities. Neuro: Cranial nerves II through XII intact, no focal neurological deficits. Wil-Hallpike maneuver was completed, negative. Skin: Clean dry and intact with no rash, purpura, petechiae, vesicles or pustules. Backs/flank: No CVA tenderness, no midline spinal tenderness, no deformity. Psych: Normal mood and affect. No SI, HI or acute psychosis. Rectal: Rectal exam showed external hemorrhoids, slight light pink color on my finger however there was no melena, no silvina bleeding. Const Vital Signs: 11/21/24 16:54 11/21/24 16:57 Temperature 97.7 F L Temperature Source Oral Pulse Rate 60 Respiratory Rate 20 H Respiratory Effort Normal Respiratory Depth Normal Respiratory Pattern Normal Blood Pressure 136/64 H Blood Pressure Mean 88 Pulse Ox 100 Oxygen Delivery Method Room Air Room Air <Dr. Marv Carreon DO - Last Filed: 11/21/24 19:02> Physical Exam Const Vital Signs: 11/21/24 16:54 11/21/24 16:57 Temperature 97.7 F L Temperature Source Oral Pulse Rate 60 Respiratory Rate 20 H Respiratory Effort Normal Respiratory Depth Normal Respiratory Pattern Normal Blood Pressure 136/64 H Blood Pressure Mean 88 Pulse Ox 100 Oxygen Delivery Method Room Air Room Air [facility] <ELVER Goodman - Last Filed: 11/21/24 18:37> [facility] Lab Data Labs: Laboratory Results - last 24 hr 11/21/24 11/21/24 17:22 18:15 WBC 5.0 RBC 2.91 L Hgb 9.1 L Hct 29.2 L MCV 100.3 H MCH 31.3 MCHC 31.2 L RDW Std Deviation 56.9 H RDW Coeff of Yara 15.5 H Plt Count 234 MPV 9.4 Immature Gran % (Auto) 0.400 Neut % (Auto) 42.8 L Lymph % (Auto) 44.5 H [place] % (Auto) 9.5 Eos % (Auto) 2.2 Baso % (Auto) 0.6 Absolute Neuts (auto) 2.2 Absolute Lymphs (auto) 2.24 Nucleated RBC % 0 Sodium 137 Potassium 5.0 Chloride 109 H Carbon Dioxide 28.0 Anion Gap 0 L BUN 21 H Creatinine 1.16 Estim Creat Clear Calc 58.12 Est GFR (MDRD) Af Amer 77 Est GFR (MDRD) Non-Af 64 BUN/Creatinine Ratio 18.1 Glucose 116 H Calcium 8.6 Total Bilirubin 0.20 AST 12 L ALT 7 L Alkaline Phosphatase 72 Troponin I High Sens 20 Total Protein 6.8 Albumin 3.2 Globulin 3.6 Albumin/Globulin Ratio 0.9 Lipase 61 Urine Color Yellow Urine Clarity Cloudy Urine pH 6.5 Ur Specific Clubb 1.010 Urine Protein 15 H Urine Glucose (UA) Normal Urine Ketones Negative Urine Occult Blood 10 H Urine Nitrite Negative Urine Bilirubin Negative Urine Urobilinogen Normal Ur Leukocyte Esterase 100 H Urine RBC 0-5 SEEN Urine WBC 5-10 SEEN Ur Squamous Epith Cells 0-5 SEEN Urine Bacteria 1+ Urine Mucus 0 SEEN Radiography Diagnostic Testing: Clinical Impression(s) from Imaging Studies Brain CT 11/21/24 17:32 IMPRESSION: No acute intracranial abnormality. Chronic involutional and ischemic changes of the brain. Electronically Signed: Hardeep Braun MD at 18:53 EST , Chest X-Ray 11/21/24 17:56 IMPRESSION: No acute radiographic abnormalities. Electronically Signed: Hardeep Braun MD at 18:57 EST , EKG Sinus bradycardia: Attestation: I personally reviewed and interpreted this EKG as follows: Interpretation: Sinus Rhythm Comments: Sinus bradycardia, rate of 58 bpm, IL 278 ms, no acute ST elevation, no acute infarct noted. Treatment and Re-Evaluation :: Differential diagnosis includes however is not limited to: Rectal hemorrhage, rectal bleeding, anemia, mass, vertigo Patient appears generally well, vital signs are stable, patient is nontoxic-appearing. Presenting to the emergency department complaints of bleeding every time he uses the restroom, once a day for 3 weeks, as well as of dizziness and weakness today. Patient will receive a full workup, including a troponin, CT scan of the brain. Chest x-ray as well as a stool occult. All radiologic examinations were read, reviewed by the emergency department attending. From these reads, a plan of care will be put in place. Patient's laboratory values show a drop of hemoglobin. Patient's white blood cell count is 5.0, patient's hemoglobin was 11.3 on 11/06/2024. Patient's hemoglobin is down 9.1. Patient chemistries were unremarkable, lipase was negative. CT scan of the brain was unremarkable. Urinalysis is negative. Patient's stool occult was positive. Chest x-ray was unchanged. I did reach out to Dr. Marie, secondary to the hemoglobin drop, I do believe the patient needs to be admitted to the hospital. Patient is stable. I will reach out to the hospitalist. <Dr. Marv Carreon, DO - Last Filed: 11/21/24 19:02> [facility] Lab Data Labs: Laboratory Results - last 24 hr 11/21/24 11/21/24 17:22 18:15 WBC 5.0 RBC 2.91 L Hgb 9.1 L Hct 29.2 L MCV 100.3 H MCH 31.3 MCHC 31.2 L RDW Std Deviation 56.9 H RDW Coeff of Yara 15.5 H Plt Count 234 MPV 9.4 Immature Gran % (Auto) 0.400 Neut % (Auto) 42.8 L Lymph % (Auto) 44.5 H [place] % (Auto) 9.5 Eos % (Auto) 2.2 Baso % (Auto) 0.6 Absolute Neuts (auto) 2.2 Absolute Lymphs (auto) 2.24 Nucleated RBC % 0 Sodium 137 Potassium 5.0 Chloride 109 H Carbon Dioxide 28.0 Anion Gap 0 L BUN 21 H Creatinine 1.16 Estim Creat Clear Calc 58.12 Est GFR (MDRD) Af Amer 77 Est GFR (MDRD) Non-Af 64 BUN/Creatinine Ratio 18.1 Glucose 116 H Calcium 8.6 Total Bilirubin 0.20 AST 12 L ALT 7 L Alkaline Phosphatase 72 Troponin I High Sens 20 Total Protein 6.8 Albumin 3.2 Globulin 3.6 Albumin/Globulin Ratio 0.9 Lipase 61 Urine Color Yellow Urine Clarity Cloudy Urine pH 6.5 Ur Specific Clubb 1.010 Urine Protein 15 H Urine Glucose (UA) Normal Urine Ketones Negative Urine Occult Blood 10 H Urine Nitrite Negative Urine Bilirubin Negative Urine Urobilinogen Normal Ur Leukocyte Esterase 100 H Urine RBC 0-5 SEEN Urine WBC 5-10 SEEN Ur Squamous Epith Cells 0-5 SEEN Urine Bacteria 1+ Urine Mucus 0 SEEN Radiography Diagnostic Testing: Clinical Impression(s) from Imaging Studies Brain CT 11/21/24 17:32 IMPRESSION: No acute intracranial abnormality. Chronic involutional and ischemic changes of the brain. Electronically Signed: Hardeep Braun MD at 18:53 EST , Chest X-Ray 11/21/24 17:56 IMPRESSION: No acute radiographic abnormalities. Electronically Signed: Hardeep Braun MD at 18:57 EST , Treatment and Re-Evaluation :: Differential diagnosis includes however is not limited to: Rectal hemorrhage, rectal bleeding, anemia, mass, vertigo Patient appears generally well, vital signs are stable, patient is nontoxic-appearing. Presenting to the emergency department complaints of bleeding every time he uses the restroom, once a day for 3 weeks, as well as of dizziness and weakness today. Patient will receive a full workup, including a troponin, CT scan of the brain. Chest x-ray as well as a stool occult. All radiologic examinations were read, reviewed by the emergency department attending. From these reads, a plan of care will be put in place. Patient's laboratory values show a drop of hemoglobin. Patient's white blood cell count is 5.0, patient's hemoglobin was 11.3 on 11/06/2024. Patient's hemoglobin is down 9.1. Patient chemistries were unremarkable, lipase was negative. CT scan of the brain was unremarkable. Urinalysis is negative. Patient's stool occult was positive. Chest x-ray was unchanged. I did reach out to Dr. Palomo, secondary to the hemoglobin drop, I do believe the patient needs to be admitted to the hospital. Patient is stable. I will reach out to the hospitalist. ED attending note: I evaluated the patient in conjunction with the PATTI. I agree with his/her statements and above findings. I have personally performed a face to face assessment of the patient and have reviewed the PATTI Note. I performed a substantive portion of the visit including all aspects of the following. I personally saw the patient performed chart review, physical exam, reviewed labs, imaging (if obtained), and formulated a treatment and management plan. This note was generated with [employer] dictation software. It may contain incorrect words, spelling, and punctuation that were not noted in review of the chart prior to signing. Discharge Plan Triage Chief Complaint: GI Bleed Other Complaint: Dizziness Fall ED Midlevel Provider: Stefan Whittaker ED Provider: Marv Carreon Dx/Rx/DC Orders Prescriptions: No Action omega-3 fatty acids 1,000 mg capsule 1,000 mg PO QDAY duloxetine 60 mg capsule,delayed release(DR/EC) 60 mg PO BID hydrocodone-acetaminophen 5-325 mg tablet 1 tab PO Q6H PRN (Reason: Pain) carbidopa-levodopa 25-100 mg tablet 1 tab PO BID losartan 25 mg tablet 25 mg PO QDAY Breztri Aerosphere 160-9-4.8 mcg/actuation HFA aerosol inhaler 2 inh inhalation BID Qty: 10.7 6RF pioglitazone [Actos] 45 MG tablet 45 mg PO DAILY simvastatin 40 MG tablet 40 mg PO QHS primidone 250 MG tablet 250 mg PO TID glimepiride 4 MG tablet 4 mg PO DAILY topiramate 50 MG tablet 50 mg PO BID fenofibrate 160 MG tablet 160 mg PO DAILY insulin glargine [Lantus Solostar U-100 Insulin] 100 unit/mL (3 mL) insulin pen 15 unit subcut .Daily Patient Comments: 15 units daily cefazolin 2 gram recon soln 2 g IV Q8H 10 Days Rx Instructions: stop date 10/20/24. Dx: mssa bacteremia. weekly bmp, cbc; fax to [phone]. Routine midline care per protocol. prednisone 20 mg Tablet 20 mg PO BIDCM Qty: 11 0RF Rx Instructions: 1 twice a day for 3 days, then 1 daily for 3 days, then one half daily for 4 days then stop diphenhydramine HCl [Benadryl] 25 mg capsule 25 mg PO Q8 Qty: 10 0RF famotidine [Pepcid] 20 mg tablet 20 mg PO BID Qty: 7 0RF prednisone 20 mg tablet 40 mg PO DAILY Qty: 12 0RF ipratropium-albuterol 0.5 mg-3 mg(2.5 mg base)/3 mL solution for nebulization 3 ml INHALATION Q6H Qty: 180 11RF lidocaine-prilocaine 2.5-2.5 % cream 1 applic topical DAILY PRN PRN (Reason: port access) 30 Days Qty: 1 2RF Primary Care Provider: Ruben Angela NP Referrals: Ruben Angela NP, [employer] [facility] [Primary Care Provider] - Print Language: Khmer
[2024-11-21 17:47] LABS: Absolute Lymphocyte Count 2.24 X10^3/uL (0.83-4.51); Absolute Neutrophil Count 2.2 X10^3/uL (2.0-7.7); Basophil# 0.03 X10^3/uL; Basophil% 0.6 % (0-1); Eosinophil# 0.11 X10^3/uL; Eosinophils% 2.2 % (0-5); Hematocrit 29.2 % (40-54); Hemoglobin 9.1 g/dL (13.0-16.5); Lymphocyte # 2.24 X10^3/ul (0.83-4.51); Lymphocyte % 44.5 % (19-41); Mean Corp Hgb Conc 31.2 g/dL (32-36); Mean Corpuscular Hgb 31.3 pg (27.0-32.0); Mean Corpuscular Volume 100.3 fL (80-94); Mean Platelet Vol. 9.4 fl (6.2-12.0); Monocyte# 0.48 X10^3/uL; Monocyte% 9.5 % (0-10); NRBC Flagged by Analyzer 0 % (0-5); Neutrophil # 2.15 X10^3/uL (2.7-7.7); Neutrophil % 42.8 % (47-70); Platelet Count 234 K/mm3 (150-450); RBC Distribution Width CV 15.5 % (11.6-14.6); RBC Distribution Width SD 56.9 fl (35.1-43.9); Red Blood Count 2.91 M/mm3 (4.6-6.2)
--- NOTE | 2024-11-21 17:56 | RAD_ITS ---
INDICATION: cough EXAMINATION/TECHNIQUE: X-RAY - XR Chest 1 View COMPARISON: 10/31/2024. FINDINGS: The lungs are clear. Sternal cerclage wires and vascular clips are present from a prior sternotomy and coronary artery bypass graft procedure (CABG). The heart is mildly enlarged. Tortuous and calcified thoracic aorta. Right-sided chest port. No pleural effusion or pneumothorax. Degenerative changes of the thoracic spine. RAD/Chest 1 View (Portable) IMPRESSION: No acute radiographic abnormalities. Electronically Signed: Hardeep Braun MD at 18:57 EST ,
[2024-11-21 18:08] LABS: ALB/GLOB Ratio 0.9 RATIO (0.9-2.4); AST(SGOT) 12 U/L (15-37); Alanine Aminotransfer ALT/SGPT 7 U/L (16-61); Albumin, Serum 3.2 g/dL (3.2-5.0); Alkaline Phosphatase 72 U/L (45-117); Anion Gap 0 (5-15); BUN 21 mg/dL (7-18); BUN/Creat Ratio 18.1 RATIO (10-20); Calcium,Total 8.6 mg/dL (8.5-10.1); Chloride 109 mmol/L (98-107); Creatinine, Serum 1.16 mg/dL (0.70-1.30); EST Glomerular Filtration Rate 64 mL/min (>60); Est Glom Filt Rate - Afr Amer 77 mL/min (>60); Estimated Creatinine Clearance 58.12 ml/min; Globulin 3.6 g/dL (2.2-4.2); Glucose 116 mg/dL (74-106); Lipase 61 U/L (13-75); Protein, Total 6.8 g/dL (6.4-8.2); Sodium Level 137 mmol/L (136-145); Troponin-I HS 20 pg/mL (3.0-78.0)
[2024-11-21 18:17] LABS: Mucous, Urine 0 SEEN /hpf (<or=2+)
[2024-11-21 18:19] LABS: Color, Urine Yellow (Yellow); Glucose, Dipstick Normal (Normal); Ketone-Dipstick Negative (Negative); Leukocyte Esterase-Dipstick 100 /ul (Negative); Nitrite-Dipstick Negative (Negative); Occult Blood-Urine 10 /ul (Negative); Protein-Dipstick 15 mg/dl (Negative); Urine Bilirubin Dipstick Negative (Negative); Urine Clarity Cloudy (Clear); Urine Urobilinogen Normal (Normal); Urine pH 6.5 (5.0 - 8.0)
--- NOTE | 2024-11-21 18:48 | PCM.HP.STD ---
[facility] - General General Date of Admission: 11/21/24 Date of Service: 11/21/24 Chief Complaint: Falls, Dizziness and Bloody Stools x 3 Weeks. HPI Narrative AKASH GREGORY, is a 84 M with a past medical history of essential hypertension; on losartan, hyperlipidemia; on fenofibrate and simvastatin, obesity; with BMI of 35.7 this admission, JOHN, DM-2; of unknown control on glimepiride, pioglitazone an insulin glargine 15U daily, diabetic neuropathy, CAD; with history of inferior wall UT s/p CABG x 4, history of mitral & tricuspid valve regurgitation, history of tobacco abuse; with subsequent COPD, Parkinson's disease; on Sinemet, Topiramate and primidone, history of depression; on duloxetine, history of CKD; stage III, history of BPH; s/p TURP (2020), history of bladder cancer and prostate cancer with Port in-place; s/p radical prostatectomy and urostomy, history of B12 deficiency; with chronic macrocytic anemia, history of thrombocytopenia, history of MSSA bacteremia, history of pneumonia, listed allergy to cefepime (anaphylaxis), listed allergy to cefazolin (hives) and OA; with DDD and lumbar spondylosis causing chronic back pain on prn oxycodone q. 6 hours who presents to [facility] ER complaining of falls, dizziness and bloody stools. Mr. Gregory reports his symptoms began approximately 3 weeks prior to admission when he began to have one bloody bowel movement a day. He describes the bleeding as [id number] and he denies currently taking blood thinning medications. He states his last colonoscopy was more than 10 years ago. He repots he tried to get an appointment with gastroenterology but when he could not be seen for multiple weeks he decided to come in for further evaluation and treatment. He denies associated fever, chills, nausea, vomiting, abdominal pain, constipation, diarrhea, chest pain or SOB. In the ER he was diagnosed with a LGIB with blood noted on rectal exam in the ER with a hemoglobin of 9.1 g/dL present on admission (down from his baseline of 11.3 g/dL on November 06, 2024) with stable vital signs along with UA positive for Acute Cystitis; without hematuria and he was then admitted to the PCU for ongoing care for a stay that is expected to extend beyond 2 midnights. [facility] Medical History (Updated 11/22/24 @ 07:[address] Angie Perea MD) DDD (degenerative disc disease) Lumbar spondylosis MSSA bacteremia Acute hyperglycemia COPD (chronic obstructive pulmonary disease) Blood bacterial culture positive Arthritis of sacroiliac joint Candidal dermatitis Candidiasis Sleep apnea Kidney disease Smoker H/O cardiovascular stress test History of left heart catheterization (~02/24/10) Cardiology follow-up encounter Port-A-Cath in place (~01/24/21) History of blood transfusion bladder instill antica agent Low back pain Primary hypertension Emphysema, unspecified Congenital stenosis and stricture of esophagus Cardiac murmur, unspecified Atherosclerotic heart disease Anemia Acute kidney failure, unspecified Gross hematuria BPH with obstruction/lower urinary tract symptoms Bladder cancer Nicotine dependence, cigarettes, uncomplicated JOHN (obstructive sleep apnea) COPD (chronic obstructive pulmonary disease) Acute UT, inferior wall CKD stage 3 Diabetes mellitus Hyperlipidemia Pulmonary HTN CAD (coronary artery disease) Diabetic neuropathy Mitral valve regurgitation Tricuspid valve regurgitation B12 deficiency Parkinson disease Pneumonia Tobacco use disorder, continuous Obesity Home Medications ?Medication ?Instructions ?Recorded ?Last Taken ?Type duloxetine 60 mg capsule,delayed 60 mg PO BID DEPRESSION 03/12/18 Unknown History release omega-3 fatty acids 1,000 mg 1,000 mg PO QDAY SUPPLEMENT 03/12/18 Unknown History capsule fenofibrate 160 mg tablet 160 mg PO DAILY CHOLESTEROL 01/14/21 Unknown History glimepiride 4 mg tablet 4 mg PO DAILY DIABETIC 01/14/21 Unknown History pioglitazone 45 mg tablet (Actos) 45 mg PO DAILY DIABETES 01/14/21 Unknown History primidone 250 mg tablet 250 mg PO TID PARKINSONS 01/14/21 05/06/21 History simvastatin 40 mg tablet 40 mg PO QHS CHOLESTEROL 01/14/21 Unknown History hydrocodone-acetaminophen 5-325mg 1 tab PO Q6H PRN Pain 03/23/21 Unknown History 5mg-325mg ipratropium 0.5 mg-albuterol 3 mg 3 ml inhalation Q6H COPD J44.9 07/03/22 Unknown Rx (2.5 mg base)/3 mL nebulization #180 mL soln lidocaine-prilocaine 2.5 %-2.5 % 1 applic topical DAILY PRN PRN 08/10/23 Unknown Rx topical cream port access 30 days #1 tube carbidopa 25 mg-levodopa 100 mg 1 tab PO BID PARKINSON'S 10/31/23 Unknown History tablet losartan 25 mg tablet 25 mg PO QDAY HTN 04/01/24 Unknown History insulin glargine 100 unit/mL (3 15 unit subcut .Daily Diabetes 10/05/24 Unknown History mL) subcutaneous pen (Lantus Solostar U-100 Insulin) cefazolin 2 gram intravenous 2 g IV Q8H 10 days 10/09/24 Unknown Rx solution budesonide 160 mcg-glycopyr 9 2 inh inhalation BID WHEEZING 10/16/24 Unknown Rx mcg-formot 4.8 mcg/actuation HFA #10.7 grams inhaler ([employer]) blood sugar diagnostic ([employer] 11/21/24 Unknown History Verio test strips) blood-glucose meter ([employer] 11/21/24 Unknown History Verio Flex Meter) carbidopa ER 50 mg-levodopa 200 mg 1 tab PO QHS PARKINSON'S 11/21/24 Unknown History tablet,extended release gabapentin 600 mg tablet 600 mg PO TID NEUROPATHY 11/21/24 Unknown History lancets 33 gauge ([employer] 11/21/24 Unknown History Plus Lancet) Allergy/AdvReac Type Severity Reaction Status Date / Time cefepime Allergy Severe Anaphylaxis Verified 11/21/24 16:55 cefazolin Allergy Intermediate Hives Verified 11/21/24 16:55 Family History Mother Ovarian cancer Father Heart disease Brother Leukemia Surgical History Status post radical cystoprostatectomy Hx of transurethral resection of prostate (~01/05/21) History of quadruple bypass History of hand surgery History of ankle surgery Hx of cystoscopy S/P TURP Previous back surgery S/P CABG x 4 Social History current occupational status: retired Smoking Status: Light Smoker (<10/day) alcohol intake: never substance use type: does not use caffeine: Yes Type: coffee Number of servings: 1 eating out: rarely or never ROS ROS Narrative Review of Systems: Constitutional: Patient admits to generalized weakness but he denies fever or chills. Eyes: Patient denies changes in vision or discharge from eyes. ENT: Patient denies runny nose, sore throat or ear pain. Resp: Patient denies shortness of breath or cough. CV: Patient denies chest pain, palpitations or heart racing. GI: Patient admits to blood in stools daily but he denies abdominal pain, nausea, vomiting, diarrhea or constipation. : Patient denies dysuria or hematuria. MSK: Patient admits to generalized weakness and myalgias but he denies arthralgias. Skin: Patient denies rash, abscess or jaundice. Psych: Patient denies symptoms of uncontrolled depression or anxiety. Neuro: Patient admits to generalized weakness with dizziness but he denies headache, paresthesias or focal neurologic deficits. Allergy: Patient denies lip swelling, tongue swelling or urticaria. Hematology: Patient admits to daily bloody bowel movement for the past ~3 weeks as per HPI. Endocrinology: Patient denies polyuria, polydipsia or polyphagia. 14 point review of systems otherwise negative other than positives noted above in HPI. Vital Signs Vital Signs Vital Signs: 11/21/24 16:54 11/21/24 16:57 Temperature 97.7 F L Temperature Source Oral Pulse Rate 60 Respiratory Rate 20 H Respiratory Effort Normal Respiratory Depth Normal Respiratory Pattern Normal Blood Pressure 136/64 H Blood Pressure Mean 88 Pulse Ox 100 Oxygen Delivery Method Room Air Room Air Weight Weight: 235 lb 1.6 oz Body Mass Index (BMI) 35.7 Results Lab / Micro Data 11/22/24 04:32 11/22/24 04:32 Labs: Laboratory Results - last 24 hr 11/21/24 17:22: WBC 5.0, RBC 2.91 L, Hgb 9.1 L, Hct 29.2 L, MCV 100.3 H, MCH 31.3, MCHC 31.2 L, RDW Std Deviation 56.9 H, RDW Coeff of Yara 15.5 H, Plt Count 234, MPV 9.4, Immature Gran % (Auto) 0.400, Neut % (Auto) 42.8 L, Lymph % (Auto) 44.5 H, [place] % (Auto) 9.5, Eos % (Auto) 2.2, Baso % (Auto) 0.6, Absolute Neuts (auto) 2.2, Absolute Lymphs (auto) 2.24, Nucleated RBC % 0, Sodium 137, Potassium 5.0, Chloride 109 H, Carbon Dioxide 28.0, Anion Gap 0 L, BUN 21 H, Creatinine 1.16, Estim Creat Clear Calc 58.12, Est GFR (MDRD) Af Amer 77, Est GFR (MDRD) Non-Af 64, BUN/Creatinine Ratio 18.1, Glucose 116 H, Calcium 8.6, Total Bilirubin 0.20, AST 12 L, ALT 7 L, Alkaline Phosphatase 72, Troponin I High Sens 20, Total Protein 6.8, Albumin 3.2, Globulin 3.6, Albumin/Globulin Ratio 0.9, Lipase 61 11/21/24 18:15: Urine Color Yellow, Urine Clarity Cloudy, Urine pH 6.5, Ur Specific [place] 1.010, Urine Protein 15 H, Urine Glucose (UA) Normal, Urine Ketones Negative, Urine Occult Blood 10 H, Urine Nitrite Negative, Urine Bilirubin Negative, Urine Urobilinogen Normal, Ur Leukocyte Esterase 100 H Micro: Microbiology 11/21/24 17:25 Stool Stool Occult Blood (STEPHANI) - Final Occult Blood Positive Assessment & Plan Assessment/Plan (1) LGI bleed: (2) Acute cystitis without hematuria: (3) Frequent falls: (4) Dizziness: (5) Osteoarthritis: QUALIFIERS: Osteoarthritis location: unspecified site Osteoarthritis type: unspecified Qualified Code(s): M19.90 - Unspecified osteoarthritis, unspecified site (6) Chronic back pain: QUALIFIERS: Back pain laterality: bilateral Back pain location: low back pain Sciatica presence: without sciatica Qualified Code(s): M54.50 - Low back pain, unspecified; G89.29 - Other chronic pain (7) DDD (degenerative disc disease): QUALIFIERS: Spinal region: lumbar Qualified Code(s): M51.36 - Other intervertebral disc degeneration, lumbar region (8) Lumbar spondylosis: (9) Obesity (BMI 30-39.9): PLAN: Plan 1. LGIB with blood noted on rectal exam in the ER with a hemoglobin of 9.1 g/dL present on admission (down from his baseline of 11.3 g/dL on November 06, 2024) with stable vital signs - Admit to PCU. Give Protonix 40 mg IV daily in case of upper GI source and/or contribution. Keep NPO except for ice chips, sips and medications with planned endoscopy. Type & Screen blood and transfuse for hemoglobin <7 g/dL. 2. Acute Cystitis; without hematuria complicating #1 - Start IV Levaquin given allergy profile and await culture and sensitivity data. 3. OA; with DDD and lumbar spondylosis causing chronic back pain on prn oxycodone q. 6 hours with increasing falls and dizziness arising from #1 & #2- Continue home regimen with oxycodone prn for severe (level 6-10/10) pain. 4. Obesity; with BMI of 35.7 this admission plus JOHN compounding #1 & #2 - Weight loss will be recommended. Check TSH. This complicates his case and may hamper recovery. 5. Essential hypertension; on losartan - Hold scheduled antihypertensives and give IV Hydralazine prn for systolic blood pressure > 160 mmHg. 6. Hyperlipidemia; on fenofibrate and simvastatin - Restart home regimen after endoscopic evaluation. 7. DM-2; of unknown control on glimepiride, pioglitazone an insulin glargine 15U daily, diabetic neuropathy - Hold oral diabetic medications and cut insulin glargine dose by approximately 60% while patient is NPO. FSBS before every meal at bedtime plus lowest intensity SSI. Check hemoglobin A1c to objectively evaluate quality of diabetic control. 8. CAD; with history of inferior wall UT s/p CABG x 4 - Noted. 9. History of mitral & tricuspid valve regurgitation - Noted. 10. History of tobacco abuse; with subsequent COPD - Stable with no evidence of acute flare at this time. Tobacco cessation will be strongly encouraged with nicotine patch offered to control cravings. 11. Parkinson's disease; on Sinemet, Topiramate and primidone - Resume home regimen as previous to prevent withdrawal and/or exacerbation. 12. History of depression; on duloxetine - Continue duloxetine as before. 13. History of CKD; stage III - Stable with serum creatinine of 1.16 and estimated GFR of 64 mL/min present on admission. 14. History of BPH; s/p TURP (2020) - Noted. 15. History of bladder cancer and prostate cancer with Port in-place; s/p radical prostatectomy and urostomy - Stable. 16. History of B12 deficiency; with chronic macrocytic anemia - MCV of 103 fL present on admission. Check B12 level to clarify potential continued deficiency. 17. History of thrombocytopenia - Stable with platelet count of 234K present on admission. 18. History of MSSA bacteremia - Noted with no signs of recurrence. 19. History of pneumonia - Noted. 20. Listed allergy to cefepime (anaphylaxis) - Noted. 21. Listed allergy to cefazolin (hives) - Noted. 22. DVT prophylaxis - SCD's only in light of #1. Total time: Approximately (but not less than) 75 minutes. Charges/Coding Visit Charges Inpatient E&M: 10325 Init Hosp L3
[2024-11-21 18:52] LABS: Bacteria 1+ /hpf (None Seen); Red Blood Cells-Urine 0-5 SEEN /hpf (0-5); White Blood Cells 5-10 SEEN /hpf (0-5)
[2024-11-21 18:54] VITALS: BP 131/91; PULSE 56; RESP 16; TEMP 36.6; O2SAT 97
[2024-11-21 18:54] LABS: Squamous Epithelial Cells - UA 0-5 SEEN /hpf (0-5)
[2024-11-21 20:20] VITALS: BMI 35.9
[2024-11-21 20:21] VITALS: BP 151/62; PULSE 55; RESP 14; TEMP 36.8; O2SAT 100
[2024-11-21] MEDS: Gabapentin 600 MG Tablet PO (21:28)
[2024-11-21] MEDS: Primidone 250 MG Tablet PO (21:28)
[2024-11-21] MEDS: Atorvastatin Calcium 20 MG Tablet PO (21:28)
[2024-11-21] MEDS: DULoxetine Hcl 60 MG Capsule PO (21:28)
[2024-11-21] MEDS: Lactobacillis Acidophilus 1 CAP PO (21:29)
[2024-11-21] MEDS: CARBIDOPA/LEVODOPA CR 50/200 Tablet PO (21:29)
[2024-11-21] MEDS: Pantoprazole Sodium 40 MG in 0.9% Normal Saline (100mL MB+) 100 ML 330 MG IV (21:29)
[2024-11-21] MEDS: 0.9% Normal Saline (1000mL) 1,000 ML 70 ML IV (21:30)
[2024-11-21] MEDS: levoFLOXacin IV 500 MG/100 ML BAG 100 MG IV (21:30)
[2024-11-21 21:55] LABS: Bedside Glucose 112 mg/dL (74-106)
[2024-11-21 22:12] LABS: Ferritin 137 ng/mL (26-388); Iron 104 ug/dL (65-175); Iron Binding Capacity,Total 287 ug/dL (250-450); PERCENT IRON SATURATION 36.2 % (15.0-55.0)
[2024-11-22] VITALS (9 sets, daily range): BP systolic 101–122; BP diastolic 57–77; PULSE 59–88; RESP 16–20; TEMP 36.5–36.8; O2SAT 92–96; BMI 35.9
[2024-11-22 05:43] LABS: Absolute Lymphocyte Count 1.89 X10^3/uL (0.83-4.51); Absolute Neutrophil Count 2.7 X10^3/uL (2.0-7.7); Basophil# 0.04 X10^3/uL; Basophil% 0.8 % (0-1); Eosinophil# 0.12 X10^3/uL; Eosinophils% 2.3 % (0-5); Hematocrit 27.2 % (40-54); Hemoglobin 8.7 g/dL (13.0-16.5); Lymphocyte # 1.89 X10^3/ul (0.83-4.51); Mean Corpuscular Hgb 31.9 pg (27.0-32.0); Mean Corpuscular Volume 99.6 fL (80-94); Mean Platelet Vol. 9.6 fl (6.2-12.0); Monocyte# 0.49 X10^3/uL; Monocyte% 9.3 % (0-10); NRBC Flagged by Analyzer 0 % (0-5); Neutrophil # 2.69 X10^3/uL (2.7-7.7); Neutrophil % 51.2 % (47-70); Platelet Count 228 K/mm3 (150-450); RBC Distribution Width CV 15.8 % (11.6-14.6); RBC Distribution Width SD 56.7 fl (35.1-43.9); Red Blood Count 2.73 M/mm3 (4.6-6.2); White Blood Count 5.3 K/mm3 (4.4-11.0)
[2024-11-22 06:03] LABS: Hemoglobin A1c 8.1 % (3.8-5.6)
[2024-11-22 06:40] LABS: ALB/GLOB Ratio 0.9 RATIO (0.9-2.4); AST(SGOT) 16 U/L (15-37); Alanine Aminotransfer ALT/SGPT 7 U/L (16-61); Albumin, Serum 2.9 g/dL (3.2-5.0); Alkaline Phosphatase 50 U/L (45-117); Anion Gap 5 (5-15); BUN 16 mg/dL (7-18); Calcium,Total 8.5 mg/dL (8.5-10.1); Chloride 108 mmol/L (98-107); Creatinine, Serum 0.94 mg/dL (0.70-1.30); EST Glomerular Filtration Rate 82 mL/min (>60); Est Glom Filt Rate - Afr Amer 99 mL/min (>60); Estimated Creatinine Clearance 71.88 ml/min; Globulin 3.4 g/dL (2.2-4.2); Glucose 115 mg/dL (74-106); Magnesium 1.9 mg/dL (1.6-2.6); Phosphorus 2.8 mg/dL (2.5-4.9); Potassium 4.3 mmol/L (3.5-5.1); Protein, Total 6.3 g/dL (6.4-8.2); Sodium Level 139 mmol/L (136-145)
[2024-11-22] MEDS: Primidone 250 MG Tablet PO ×3 (06:50→22:07)
--- NOTE | 2024-11-22 07:00 | PN.HOSP_ITS ---
Subjective Subjective Patient with no acute events overnight per self and per nursing report however his hemoglobin did continue to drop. He notes that it when he is at rest laying in bed he is doing okay but he does have some lightheadedness, dizziness if he is up and moving. He is eager for GI evaluation to ascertain cause of GI bleed. He denies any chest pain or marked dyspnea. Patient denies fevers, chills, nausea, emesis, abdominal pain. Objective Data Objective Data Vital Signs: Vital Signs Temp Pulse Resp BP Pulse Ox O2 Del Method 97.8 F 80 16 121/77 H 94 Room Air 11/22/24 02:00 11/22/24 02:00 11/22/24 02:00 11/22/24 02:00 11/22/24 02:00 11/22/24 02:00 Oxygen Delivery Method Room Air Weight: 236 lb 1.841 oz Body Mass Index (BMI) 35.9 Intake & Output: Intake and Output for Last 24 Hours 11/20/24 11/21/24 11/22/24 23:59 23:59 23:59 Intake Total 210 / 210 Output Total 650 / 650 Balance 210 / -40 -650 / -650 Lab / Micro Data 11/22/24 04:32 11/22/24 04:32 Labs: Laboratory Results - last 24 hr 11/21/24 17:22: WBC 5.0, RBC 2.91 L, Hgb 9.1 L, Hct 29.2 L, MCV 100.3 H, MCH 31.3, MCHC 31.2 L, RDW Std Deviation 56.9 H, RDW Coeff of Yara 15.5 H, Plt Count 234, MPV 9.4, Immature Gran % (Auto) 0.400, Neut % (Auto) 42.8 L, Lymph % (Auto) 44.5 H, [place] % (Auto) 9.5, Eos % (Auto) 2.2, Baso % (Auto) 0.6, Absolute Neuts (auto) 2.2, Absolute Lymphs (auto) 2.24, Nucleated RBC % 0, Sodium 137, Potassium 5.0, Chloride 109 H, Carbon Dioxide 28.0, Anion Gap 0 L, BUN 21 H, Creatinine 1.16, Estim Creat Clear Calc 58.12, Est GFR (MDRD) Af Amer 77, Est GFR (MDRD) Non-Af 64, BUN/Creatinine Ratio 18.1, Glucose 116 H, Calcium 8.6, Iron 104, TIBC 287, Iron Saturation 36.2, Ferritin 137, Total Bilirubin 0.20, A ST 12 L, ALT 7 L, Alkaline Phosphatase 72, Troponin I High Sens 20, Total Protein 6.8, Albumin 3.2, Globulin 3.6, Albumin/Globulin Ratio 0.9, Lipase 61, Folate 9.60, TSH 3.280 11/21/24 17:25: Blood Type O POSITIVE, Antibody Screen NEGATIVE 11/21/24 18:15: Urine Color Yellow, Urine Clarity Cloudy, Urine pH 6.5, Ur Specific [place] 1.010, Urine Protein 15 H, Urine Glucose (UA) Normal, Urine Ketones Negative, Urine Occult Blood 10 H, Urine Nitrite Negative, Urine Bilirubin Negative, Urine Urobilinogen Normal, Ur Leukocyte Esterase 100 H, Urine RBC 0-5 SEEN, Urine WBC 5-10 SEEN, Ur Squamous Epith Cells 0-5 SEEN, Urine Bacteria 1+, Urine Mucus 0 SEEN 11/21/24 21:36: POC Glucose 112 H 11/22/24 04:32: WBC 5.3, RBC 2.73 L, Hgb 8.7 L, Hct 27.2 L, MCV 99.6 H, MCH 31.9, MCHC 32.0, RDW Std Deviation 56.7 H, RDW Coeff of Ayra 15.8 H, Plt Count 228, MPV 9.6, Immature Gran % (Auto) 0.400, Neut % (Auto) 51.2, Lymph % (Auto) 36.0, [place] % (Auto) 9.3, Eos % (Auto) 2.3, Baso % (Auto) 0.8, Absolute Neuts (auto) 2.7, Absolute Lymphs (auto) 1.89, Nucleated RBC % 0, Sodium 139, Potassium 4.3, Chloride 108 H, Carbon Dioxide 26.0, Anion Gap 5, BUN 16, Creatinine 0.94, Estim Creat Clear Calc 71.88, Est GFR (MDRD) Af Amer 99, Est GFR (MDRD) Non-Af 82, BUN/Creatinine Ratio 17.0, Glucose 115 H, Hemoglobin A1c 8.1 H, Calcium 8.5, Phosphorus 2.8, Magnesium 1.9, Total Bilirubin 0.30, AST 16, ALT 7 L, Alkaline Phosphatase 50, Total Protein 6.3 L, Albumin 2.9 L, Globulin 3.4, Albumin/Globulin Ratio 0.9 Micro: Microbiology 11/21/24 17:25 Stool Stool Occult Blood (STEPHANI) - Final Occult Blood Positive Radiography Diagnostic Testing: Radiology Impression Brain CT 11/21/24 17:32 IMPRESSION: No acute intracranial abnormality. Chronic involutional and ischemic changes of the brain. Electronically Signed: Hardeep Braun MD at 18:53 EST , Chest X-Ray 11/21/24 17:56 IMPRESSION: No acute radiographic abnormalities. Electronically Signed: Hardeep Braun MD at 18:57 EST , Physical Exam Narrative Physical Examination: General: Awake, alert, oriented x 3 and cooperative, laying in the PCU bed, fatigued, denies any complaints at this time but at rest. Skin: Normal color, normal turgor, no icterus, no cyanosis except occasional stage ecchymoses, abrasion. HEENT: AT/NC, EOMI, PERRLA, mildly dry MM. Lungs: Mildly diminished, greater bases, appropriate effort, no rales, ronchi or wheezing. Heart: Regular rate and rhythm; no gallop, rub audible. Abdomen: Soft, obese, NTTP, ND, right-sided urostomy in place with notable urine output, mildly hyperactive BS. Extremities: No cyanosis, no clubbing, mild trace ankle edema Neurological: Patient awake, alert, oriented as noted cognitive function intact; pupils equally reactive to light and accommodation, cranial nerves grossly normal, moving all 4 extremities, strength moderately to severely globally decreased secondary to acute presentation. Psychiatric: Affect appears fatigued otherwise normal, no acute evidence of depressive or anxiety feelings but does have underlying history. Assessment & Plan Assessment/Plan (1) GI bleed: PLAN: Plan The patient is an 84 y/o M w/ PMHx: Obesity, CKD stage IIIa, Chronic anemia, HTN, HLD, CAD s/p CABG x 4, Parkinson's disease, Hx Prostate and Bladder CA s/p resection with urostomy in place, COPD, Tobacco use, Anxiety and Depression, Diabetes mellitus type II who presents to the [facility] ED on 11/21/2024 with history of dizziness, falls, bloody stools over the last 3 weeks with no recent colonoscopy and unfortunately unable to get into the GI physician for evaluation prompting ED evaluation to be cautious. #1. Acute GI Bleed w/ resultant Acute Blood Loss Anemia on chronic anemia, macrocytic: Workup in the ED included CT the brain with no acute intracranial findings, chronic involutional ischemic changes, chest x-ray with no acute cardiopulmonary findings, CBC with WBC 5.0, hemoglobin 9.1, MCV 100.3, platelet 234, without marked shift CMP with chloride 109, BUN/creatinine 21/1.16, GFR 64, urinalysis with 10 occult blood, leukocyte Estrace 100, urine nitrite negative, urine WBCs 5-10 with 1+ urine bacteria, positive stool guaiac. Admitted to PCU, will maintain on judicious fluids, obtain serial H&H's, as noted admission hemoglobin 9.1 with baseline hemoglobin noted previously 11-12 range, maintain on IV PPI, no history of any cirrhotic disease thus will defer SBP prophylaxis, n.p.o. status awaiting GI evaluation, 11/22/2024 hemoglobin 8.7. Vitamin B12 232, folic acid 9.60. Iron studies with iron 104, TIBC 287, iron saturation 36.2, ferritin 137 all within normal range. #2. Questionable Acute Complicated Urinary Tract Infection complicated by history of prostate and bladder cancer status postresection with urostomy in place: UA upon ED evaluation very mildly remarkable, pending UCx, monitor I/Os, continue IV Levaquin w/ transition as able pending sensitivities and speciation or de-escalation if no significant growth. #3. Chronic COPD: Will hold home inhalers in the interim maintain on ATC DuoNeb therapy, PRN albuterol, HOB, IS parameters. #4. CAD: Status post CABG x 4, will continue statin, not on beta-melinda therapy for unclear reasons possibly secondary to his underlying COPD, will continue home losartan regimen with BP monitoring. Holding aspirin. #5. History of bladder cancer as well as prostate cancer status post surgical resection with urostomy: Status post TURP in 2020 with then urostomy, complicates presentation especially given #2. #6. Chronic Kidney Disease Stage IIIa: Admission BUN/Cr 21/1.16, GFR 64, baseline renal function primarily 1.0-1.3, 11/22/2024 BUN/creatinine 16/0.94, GFR 82, repeat BMP in AM. #7. Parkinson's disease: We will continue patient home primidone as well as topiramate for tremors in addition to Sinemet, maintain on fall precautions, PT/OT/case management consulted for discharge planning. #8. Anxiety and depression: We will continue patient home duloxetine regimen. #9. Tobacco Abuse: Encouraged cessation, inpatient consultation per RT, NR if desired. #10. Diabetes mellitus type II with chronic neuropathy: Hold oral home regimen, NPO, maintained on accu checks w/ ISS, continue home gabapentin regimen, hemoglobin A1c 8.1%. #11. Obesity: Weight loss and lifestyle changes encouraged. #12. DVT prophylaxis: SCDs. #13. CODE STATUS: Full Code status. Charges/Coding Visit Charges Inpatient E&M: 26920 Subs Hosp L3
[2024-11-22 07:02] LABS: Vitamin B12 232 pg/mL (211-911)
[2024-11-22] MEDS: Budesonide Respules 0.5 MG/2 ML AMPUL.NEB. INHALATION ×2 (07:32→20:16)
[2024-11-22] MEDS: Ipratropium/Albuterol Sulfate 3 ML AMPUL.NEB INHALATION ×3 (07:32→20:16)
[2024-11-22] MEDS: Gabapentin 600 MG Tablet PO ×3 (08:09→16:29)
[2024-11-22] MEDS: Fenofibrate 145 MG Tablet PO (08:10)
[2024-11-22] MEDS: CARBIDOPA/LEVODOPA CR 50/200 Tablet PO (08:10)
[2024-11-22] MEDS: Carbidopa/Levodopa 25/100 Tablet PO ×2 (08:11→16:29)
[2024-11-22] MEDS: Pantoprazole Sodium 40 MG in 0.9% Normal Saline (100mL MB+) 100 ML 330 MG IV (10:32)
[2024-11-22] MEDS: DULoxetine Hcl 60 MG Capsule PO ×2 (11:05→22:07)
[2024-11-22] MEDS: Lactobacillis Acidophilus 1 CAP PO ×4 (11:05→22:07)
[2024-11-22] MEDS: Omega-3 Acid Ethyl Esters 1 GM Capsule PO (11:06)
[2024-11-22] MEDS: Losartan Potassium 25 MG Tablet PO (11:09)
[2024-11-22 11:47] LABS: Hematocrit 27.9 % (40-54); Hemoglobin 8.8 g/dL (13.0-16.5)
--- NOTE | 2024-11-22 12:08 | CASEMGMT ---
PAMELA NICOLE assessment: RN CM to room for initial transition planning/care coordination assessment. RN CM introduced self and role at [facility]. Patient lying in bed, alert and oriented, at bedside. Patient willing to participate in assessment and is able to answer all questions appropriately. Care providers, pharmacy, and demographics verified. 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 Patient states he is independent at home w/ADL's. Daughter does their laundry. manages pt's medications. Transportation: self, DME: Patient has shower chair, raised toilet, cane, grab bars, walker, rollator, cpap, nebulizer, pulse ox, urostomy supplies from [facility] (states has sufficient amt), and functioning glucometer w/sufficient supplies at home. Pt and state pt has all insulin and needles @ home and all pills needs. SNF/HHC: No previous SNF. Had [facility] in September, but has been discharged from [facility]. Pt would like [facility] again @ discharge for therapy and pt and decline wanting list of other [facility] options. They feel they do not need SN, only therapy. Order placed. Call placed to [facility] and VM left re: referral. PAMELA NICOLE to f/u on Sunday re: acceptance. Patient wishes to discharge home and would like [facility] for therapy. Patient and state no further needs or concerns at this time. CM to follow for discharge planning needs that may arise. Plan: Home w/[facility] for therapy. Follow for possible SN as well. PT/OT evals pending. Chanda GAMINO RN, CM
[2024-11-22 12:25] LABS: Bedside Glucose 129 mg/dL (74-106)
[2024-11-22] MEDS: 0.9% Saline Lock 10 ML Syringe IV ×2 (14:20→21:56)
[2024-11-22 15:10] LABS: Hemoglobin 8.8 g/dL (13.0-16.5)
[2024-11-22] MEDS: Bisacodyl 5 MG Tablet 20 MG PO (16:51)
[2024-11-22 17:00] LABS: Bedside Glucose 140 mg/dL (74-106)
[2024-11-22 19:24] LABS: Hematocrit 28.6 % (40-54)
[2024-11-22] MEDS: levoFLOXacin IV 500 MG/100 ML BAG 100 MG IV (21:52)
[2024-11-22] MEDS: Electrolyte Solution/Peg's 4000 ML PO (21:56)
[2024-11-22] MEDS: Atorvastatin Calcium 20 MG Tablet PO (22:08)
[2024-11-23] VITALS (7 sets, daily range): BP systolic 107–122; BP diastolic 49–58; PULSE 59–70; RESP 16–18; TEMP 36.6–36.9; O2SAT 93–98; BMI 35.7
[2024-11-23 00:33] LABS: Bedside Glucose 152 mg/dL (74-106)
[2024-11-23] MEDS: Carbidopa/Levodopa 25/100 Tablet PO ×2 (06:27→16:53)
[2024-11-23] MEDS: Primidone 250 MG Tablet PO ×3 (06:27→20:52)
[2024-11-23 06:32] LABS: Absolute Lymphocyte Count 1.63 X10^3/uL (0.83-4.51); Absolute Neutrophil Count 2.6 X10^3/uL (2.0-7.7); Basophil# 0.03 X10^3/uL; Basophil% 0.6 % (0-1); Eosinophil# 0.09 X10^3/uL; Eosinophils% 1.9 % (0-5); Hematocrit 28.1 % (40-54); Hemoglobin 8.7 g/dL (13.0-16.5); Lymphocyte # 1.63 X10^3/ul (0.83-4.51); Lymphocyte % 33.8 % (19-41); Mean Corpuscular Hgb 31.2 pg (27.0-32.0); Mean Corpuscular Volume 100.7 fL (80-94); Mean Platelet Vol. 9.7 fl (6.2-12.0); Monocyte# 0.49 X10^3/uL; Monocyte% 10.2 % (0-10); NRBC Flagged by Analyzer 0 % (0-5); Neutrophil # 2.56 X10^3/uL (2.7-7.7); Neutrophil % 53.1 % (47-70); Platelet Count 218 K/mm3 (150-450); RBC Distribution Width CV 15.8 % (11.6-14.6); RBC Distribution Width SD 59.1 fl (35.1-43.9); Red Blood Count 2.79 M/mm3 (4.6-6.2); White Blood Count 4.8 K/mm3 (4.4-11.0)
--- NOTE | 2024-11-23 06:36 | PCM.PN.HOSP ---
Reason for Visit Reason for Visit: Diagnoses Obesity, unspecified (11/21/24) Other chronic pain (11/21/24) Gastrointestinal hemorrhage, unspecified (11/21/24) Unspecified osteoarthritis, unspecified site (11/21/24) Spondylosis without myelopathy or radiculopathy, lumbar region (11/21/24) Other intervertebral disc degeneration, lumbar region (11/21/24) Low back pain, unspecified (11/21/24) Acute cystitis without hematuria (11/21/24) Repeated falls (11/21/24) Dizziness and giddiness (11/21/24) Subjective Subjective Patient with no acute events overnight per self and per nursing report. He notes he tolerated the prep well and finished it this morning. He denies any lightheadedness, dizziness, nausea, emesis, abdominal pain or cramping. He does report some BRB with wiping when he uses the restroom. He notes feeling better and since he initially presented. Discussed plan of care for colonoscopy 11/24/2024 with allowance of clears until midnight. Patient denies fevers, chills, chest pain or dyspnea. Objective Data Objective Data Vital Signs: Vital Signs Temp Pulse Resp BP Pulse Ox O2 Del Method 98.1 F 61 16 122/58 H 95 Room Air 11/23/24 05:15 11/23/24 05:15 11/23/24 05:15 11/23/24 05:15 11/23/24 05:15 11/23/24 05:27 Oxygen Delivery Method Room Air Weight: 235 lb 3.732 oz Body Mass Index (BMI) 35.7 Intake & Output: Intake and Output for Last 24 Hours 11/21/24 11/22/24 11/23/24 23:59 23:59 23:59 Intake Total 210 / 210 1560 / 1560 Output Total 2900 / 2900 750 / 750 Balance 210 / -40 -1340 / -1340 -750 / -750 Lab / Micro Data 11/23/24 05:21 11/23/24 05:21 Labs: Laboratory Results - last 24 hr 11/22/24 04:32: Sodium 139, Potassium 4.3, Chloride 108 H, Carbon Dioxide 26.0, Anion Gap 5, BUN 16, Creatinine 0.94, Estim Creat Clear Calc 71.88, Est GFR (MDRD) Af Amer 99, Est GFR (MDRD) Non-Af 82, BUN/Creatinine Ratio 17.0, Glucose 115 H, Calcium 8.5, Phosphorus 2.8, Magnesium 1.9, Total Bilirubin 0.30, AST 16, ALT 7 L, Alkaline Phosphatase 50, Total Protein 6.3 L, Albumin 2.9 L, Globulin 3.4, Albumin/Globulin Ratio 0.9, Vitamin B12 232 11/22/24 11:12: POC Glucose 129 H 11/22/24 11:26: Hgb 8.8 L, Hct 27.9 L 11/22/24 14:59: Hgb 8.8 L, Hct 28.0 L 11/22/24 16:36: POC Glucose 140 H 11/22/24 19:08: Hgb 9.0 L, Hct 28.6 L 11/23/24 00:13: POC Glucose 152 H 11/23/24 05:21: WBC 4.8, RBC 2.79 L, Hgb 8.7 L, Hct 28.1 L, MCV 100.7 H, MCH 31.2, MCHC 31.0 L, RDW Std Deviation 59.1 H, RDW Coeff of Yara 15.8 H, Plt Count 218, MPV 9.7, Immature Gran % (Auto) 0.400, Neut % (Auto) 53.1, Lymph % (Auto) 33.8, [place] % (Auto) 10.2 H, Eos % (Auto) 1.9, Baso % (Auto) 0.6, Absolute Neuts (auto) 2.6, Absolute Lymphs (auto) 1.63, Nucleated RBC % 0 Micro: Microbiology 11/21/24 17:25 Stool Stool Occult Blood (STEPHANI) - Final Occult Blood Positive Physical Exam Narrative Physical Examination: General: Awake, alert, oriented x 3 and cooperative, seated upright in the PCU bedside chair, notes feeling improved, tolerated prep well. Skin: Normal color, normal turgor, no icterus, no cyanosis except occasional stage ecchymoses, abrasion. HEENT: AT/NC, EOMI, PERRLA, MMM. Lungs: Mildly diminished, greater bases, appropriate effort, no rales, ronchi or wheezing. Heart: Regular rate and rhythm; no gallop, rub audible. Abdomen: Soft, obese, NTTP, ND, right-sided urostomy in place with notable urine output, mildly hyperactive BS. Extremities: No cyanosis, no clubbing, mild trace ankle edema. Neurological: Patient awake, alert, oriented as noted cognitive function intact; pupils equally reactive to light and accommodation, cranial nerves grossly normal, moving all 4 extremities, strength improved, moderately globally decreased. Psychiatric: Affect appears more interactive, normal, no acute evidence of depressive or anxiety feelings but does have underlying history. Assessment & Plan Assessment/Plan (1) GI bleed: PLAN: Plan The patient is an 84 y/o M w/ PMHx: Obesity, CKD stage IIIa, Chronic anemia, HTN, HLD, CAD s/p CABG x 4, Parkinson's disease, Hx Prostate and Bladder CA s/p resection with urostomy in place, COPD, Tobacco use, Anxiety and Depression, Diabetes mellitus type II who presents to the [facility] ED on 11/21/2024 with history of dizziness, falls, bloody stools over the last 3 weeks with no recent colonoscopy and unfortunately unable to get into the GI physician for evaluation prompting ED evaluation to be cautious. #1. Acute GI Bleed w/ resultant Acute Blood Loss Anemia on chronic anemia, macrocytic: Workup in the ED included CT the brain with no acute intracranial findings, chronic involutional ischemic changes, chest x-ray with no acute cardiopulmonary findings, CBC with WBC 5.0, hemoglobin 9.1, MCV 100.3, platelet 234, without marked shift CMP with chloride 109, BUN/creatinine 21/1.16, GFR 64, urinalysis with 10 occult blood, leukocyte Estrace 100, urine nitrite negative, urine WBCs 5-10 with 1+ urine bacteria, positive stool guaiac. Admitted to PCU, serial H&H's, as noted admission hemoglobin 9.1 with baseline hemoglobin noted previously 11-12 range, maintained on IV PPI, no history of any cirrhotic disease thus deferred SBP prophylaxis. 11/22/2024 hemoglobin 8.7. Vitamin B12 232, folic acid 9.60. Iron studies with iron 104, TIBC 287, iron saturation 36.2, ferritin 137 all within normal range. 11/22/2024 evening initiated bowel prep which has been completed and will transition to clear liquids until midnight Sunday with planned colonoscopy 11/24/2024. 11/23/2024 hemoglobin 8.7. GI consulted and following. #2. Questionable Acute Complicated Urinary Tract Infection, lower suspicion, complicated by history of prostate and bladder cancer status postresection with urostomy in place: UA upon ED evaluation very mildly remarkable, pending UCx, monitor I/Os, continue IV Levaquin w/ transition as able pending sensitivities and speciation or de-escalation if no significant growth. Currently urine culture with prelim decreased growth thus once finalized may consider de-escalation off if appropriate. #3. Chronic COPD: Will hold home inhalers in the interim maintain on ATC DuoNeb therapy, PRN albuterol, HOB, IS parameters. #4. CAD: Status post CABG x 4, will continue statin, not on beta-melinda therapy for unclear reasons possibly secondary to his underlying COPD, will continue home losartan regimen with BP monitoring. Holding aspirin. #5. History of bladder cancer as well as prostate cancer status post surgical resection with urostomy: Status post TURP in 2020 with then urostomy, complicates presentation especially given #2. #6. Chronic Kidney Disease Stage IIIa: Admission BUN/Cr 21/1.16, GFR 64, baseline renal function primarily 1.0-1.3, 11/23/2024 BUN/creatinine 13/1.01, GFR 75, repeat BMP in AM. #7. Parkinson's disease: We will continue patient home primidone as well as topiramate for tremors in addition to Sinemet, maintain on fall precautions, PT/OT/case management consulted for discharge planning. #8. Anxiety and depression: We will continue patient home duloxetine regimen. #9. Tobacco Abuse: Encouraged cessation, inpatient consultation per RT, NR if desired. #10. Diabetes mellitus type II with chronic neuropathy: Hold oral home regimen, allowance of clears currently with NPO status for c-scope Sunday, maintained on accu checks w/ ISS, continue home gabapentin regimen, hemoglobin A1c 8.1%. #11. Obesity: Weight loss and lifestyle changes encouraged. #12. DVT prophylaxis: SCDs. #13. CODE STATUS: Full Code status. Charges/Coding Visit Charges Inpatient E&M: 24279 Subs Hosp L2
[2024-11-23 06:49] LABS: Bedside Glucose 152 mg/dL (74-106)
[2024-11-23 07:02] LABS: ALB/GLOB Ratio 0.8 RATIO (0.9-2.4); AST(SGOT) 14 U/L (15-37); Alanine Aminotransfer ALT/SGPT 16 U/L (16-61); Albumin, Serum 2.9 g/dL (3.2-5.0); Alkaline Phosphatase 54 U/L (45-117); Anion Gap 4 (5-15); BUN 13 mg/dL (7-18); BUN/Creat Ratio 12.9 RATIO (10-20); Calcium,Total 8.9 mg/dL (8.5-10.1); Chloride 107 mmol/L (98-107); Creatinine, Serum 1.01 mg/dL (0.70-1.30); EST Glomerular Filtration Rate 75 mL/min (>60); Est Glom Filt Rate - Afr Amer 91 mL/min (>60); Estimated Creatinine Clearance 66.77 ml/min; Globulin 3.7 g/dL (2.2-4.2); Glucose 155 mg/dL (74-106); Phosphorus 2.8 mg/dL (2.5-4.9); Potassium 4.6 mmol/L (3.5-5.1); Protein, Total 6.6 g/dL (6.4-8.2); Sodium Level 139 mmol/L (136-145)
[2024-11-23] MEDS: Budesonide Respules 0.5 MG/2 ML AMPUL.NEB. INHALATION (07:57)
[2024-11-23] MEDS: Ipratropium/Albuterol Sulfate 3 ML AMPUL.NEB INHALATION ×2 (07:57→13:05)
[2024-11-23] MEDS: DULoxetine Hcl 60 MG Capsule PO ×2 (09:31→20:52)
[2024-11-23] MEDS: Gabapentin 600 MG Tablet PO ×3 (09:31→16:51)
[2024-11-23] MEDS: Losartan Potassium 25 MG Tablet PO (09:35)
[2024-11-23] MEDS: Lactobacillis Acidophilus 1 CAP PO ×4 (09:36→20:52)
[2024-11-23] MEDS: Omega-3 Acid Ethyl Esters 1 GM Capsule PO (09:37)
[2024-11-23] MEDS: Fenofibrate 145 MG Tablet PO (09:37)
[2024-11-23] MEDS: Pantoprazole Sodium 40 MG in 0.9% Normal Saline (100mL MB+) 100 ML 330 MG IV (09:46)
[2024-11-23] MEDS: Insulin Lispro 100 UNIT/ML INSULN.PEN SC ×2 (12:03→18:40)
--- NOTE | 2024-11-23 12:06 | EX.PCM.CON.G ---
HPI Consult Data Date of Consult: 11/23/24 HPI Narrative Reason for Consultation: GI bleed HPI Narrative: AKASH GREGORY, is a 84 M who presents to the ED with lower GI bleed. He has a past medical history of JOHN, DM-2; of unknown control on glimepiride, pioglitazone an insulin glargine 15U daily, diabetic neuropathy, CAD; with history of inferior wall ME s/p CABG x 4, Parkinson's disease; on Sinemet, history of B12 deficiency; with chronic macrocytic anemia, history of thrombocytopenia. Mr. Gregory reports his symptoms began approximately 3 weeks prior to admission when he began to have one bloody bowel movement a day. He describes the bleeding as [id number] and he denies currently taking blood thinning medications. He states his last colonoscopy was more than 10 years ago. He repots he tried to get an appointment with gastroenterology but when he could not be seen for multiple weeks he decided to come in for further evaluation and treatment. He denies associated fever, chills, nausea, vomiting, abdominal pain, constipation, diarrhea, chest pain or SOB. In the ER he was diagnosed with a LGIB with blood noted on rectal exam in the ER with a hemoglobin of 9.1 g/dL present on admission (down from his baseline of 11.3 g/dL on November 06, 2024) with stable vital signs along with UA positive for Acute Cystitis [facility] Medical History DDD (degenerative disc disease) Lumbar spondylosis MSSA bacteremia Acute hyperglycemia COPD (chronic obstructive pulmonary disease) Blood bacterial culture positive Arthritis of sacroiliac joint Candidal dermatitis Candidiasis Sleep apnea Kidney disease Smoker H/O cardiovascular stress test History of left heart catheterization (~02/24/10) Cardiology follow-up encounter Port-A-Cath in place (~01/24/21) History of blood transfusion bladder instill antica agent Low back pain Primary hypertension Emphysema, unspecified Congenital stenosis and stricture of esophagus Cardiac murmur, unspecified Atherosclerotic heart disease Anemia Acute kidney failure, unspecified Gross hematuria BPH with obstruction/lower urinary tract symptoms Bladder cancer Nicotine dependence, cigarettes, uncomplicated JOHN (obstructive sleep apnea) COPD (chronic obstructive pulmonary disease) Acute ME, inferior wall CKD stage 3 Diabetes mellitus Hyperlipidemia Pulmonary HTN CAD (coronary artery disease) Diabetic neuropathy Mitral valve regurgitation Tricuspid valve regurgitation B12 deficiency Parkinson disease Pneumonia Tobacco use disorder, continuous Obesity Home Medications ?Medication ?Instructions ?Recorded ?Last Taken ?Type duloxetine 60 mg capsule,delayed 60 mg PO BID DEPRESSION 03/12/18 Unknown History release omega-3 fatty acids 1,000 mg 1,000 mg PO QDAY SUPPLEMENT 03/12/18 Unknown History capsule fenofibrate 160 mg tablet 160 mg PO DAILY CHOLESTEROL 01/14/21 Unknown History glimepiride 4 mg tablet 4 mg PO DAILY DIABETIC 01/14/21 Unknown History pioglitazone 45 mg tablet (Actos) 45 mg PO DAILY DIABETES 01/14/21 Unknown History primidone 250 mg tablet 250 mg PO TID PARKINSONS 01/14/21 05/06/21 History simvastatin 40 mg tablet 40 mg PO QHS CHOLESTEROL 01/14/21 Unknown History hydrocodone-acetaminophen 5-325mg 1 tab PO Q6H PRN Pain 03/23/21 Unknown History 5mg-325mg ipratropium 0.5 mg-albuterol 3 mg 3 ml inhalation Q6H COPD J44.9 07/03/22 Unknown Rx (2.5 mg base)/3 mL nebulization #180 mL soln lidocaine-prilocaine 2.5 %-2.5 % 1 applic topical DAILY PRN PRN 08/10/23 Unknown Rx topical cream port access 30 days #1 tube carbidopa 25 mg-levodopa 100 mg 1 tab PO BID PARKINSON'S 10/31/23 Unknown History tablet losartan 25 mg tablet 25 mg PO QDAY HTN 04/01/24 Unknown History insulin glargine 100 unit/mL (3 15 unit subcut .Daily Diabetes 10/05/24 Unknown History mL) subcutaneous pen (Lantus Solostar U-100 Insulin) cefazolin 2 gram intravenous 2 g IV Q8H 10 days 10/09/24 Unknown Rx solution budesonide 160 mcg-glycopyr 9 2 inh inhalation BID WHEEZING 10/16/24 Unknown Rx mcg-formot 4.8 mcg/actuation HFA #10.7 grams inhaler (Breztri Aerosphere) blood sugar diagnostic (OneTouch 11/21/24 Unknown History Verio test strips) blood-glucose meter (OneTouch 11/21/24 Unknown History Verio Flex Meter) carbidopa ER 50 mg-levodopa 200 mg 1 tab PO QHS PARKINSON'S 11/21/24 Unknown History tablet,extended release gabapentin 600 mg tablet 600 mg PO TID NEUROPATHY 11/21/24 Unknown History lancets 33 gauge (OneTouch Delica 11/21/24 Unknown History Plus Lancet) Allergy/AdvReac Type Severity Reaction Status Date / Time cefepime Allergy Severe Anaphylaxis Verified 11/21/24 16:55 cefazolin Allergy Intermediate Hives Verified 11/21/24 16:55 Family History Mother Ovarian cancer Father Heart disease Brother Leukemia Surgical History Status post radical cystoprostatectomy Hx of transurethral resection of prostate (~01/05/21) History of quadruple bypass History of hand surgery History of ankle surgery Hx of cystoscopy S/P TURP Previous back surgery S/P CABG x 4 Social History current occupational status: retired Smoking Status: Light Smoker (<10/day) alcohol intake: never substance use type: does not use caffeine: Yes Type: coffee Number of servings: 1 eating out: rarely or never Physical Exam Narrative Physical Examination: General: Awake, alert, oriented x 3 and cooperative, Skin: Normal color, normal turgor, no icterus, no cyanosis except occasional stage ecchymoses, abrasion. HEENT: AT/NC, EOMI, PERRLA, MMM. Lungs: Mildly diminished, greater bases, appropriate effort, no rales, ronchi or wheezing. Heart: Regular rate and rhythm; no gallop, rub audible. Abdomen: Soft, obese, NTTP, ND, right-sided urostomy in place with notable urine output, mildly hyperactive BS. Extremities: No cyanosis, no clubbing, mild trace ankle edema. Neurological: Patient awake, alert, oriented as noted cognitive function intact; pupils equally reactive to light and accommodation, cranial nerves grossly normal, moving all 4 extremities, strength improved, moderately globally decreased. Psychiatric: Affect appears more interactive, normal, no acute evidence of depressive or anxiety feelings but does have underlying history. Lab / Micro Data 11/24/24 05:27 11/24/24 05:27 Labs: Laboratory Results - last 24 hr 11/23/24 11:58: POC Glucose 183 H 11/23/24 18:38: POC Glucose 169 H 11/24/24 00:20: POC Glucose 160 H 11/24/24 05:27: WBC 4.7, RBC 3.04 L, Hgb 9.7 L, Hct 30.8 L, MCV 101.3 H, MCH 31.9, MCHC 31.5 L, RDW Std Deviation 58.1 H, RDW Coeff of Yara 15.8 H, Plt Count 238, MPV 9.8, Immature Gran % (Auto) 0.400, Neut % (Auto) 42.5 L, Lymph % (Auto) 43.5 H, [place] % (Auto) 10.4 H, Eos % (Auto) 2.1, Baso % (Auto) 1.1 H, Absolute Neuts (auto) 2.0, Absolute Lymphs (auto) 2.04, Nucleated RBC % 0, Sodium 136, Potassium 4.4, Chloride 104, Carbon Dioxide 30.0, Anion Gap 3 L, BUN 10, Creatinine 1.13, Estim Creat Clear Calc 58.68, Est GFR (MDRD) Af Amer 80, Est GFR (MDRD) Non-Af 66, BUN/Creatinine Ratio 8.8 L, Glucose 182 H, Calcium 9.2, Total Bilirubin 0.40, AST 15, ALT 9 L, Alkaline Phosphatase 61, Total Protein 7.2, Albumin 3.1 L, Globulin 4.1, Albumin/Globulin Ratio 0.8 L 11/24/24 06:03: POC Glucose 174 H 11/24/24 11:09: POC Glucose 146 H Micro: Microbiology 11/21/24 18:15 Urine, Clean Catch Urine Culture - Final Escherichia coli Pseudomonas aeruginosa Assessment & Plan Assessment/Plan (1) LGI bleed: (2) Acute cystitis without hematuria: (3) Frequent falls: (4) Dizziness: (5) Osteoarthritis: QUALIFIERS: Osteoarthritis location: unspecified site Osteoarthritis type: unspecified Qualified Code(s): M19.90 - Unspecified osteoarthritis, unspecified site (6) Chronic back pain: QUALIFIERS: Back pain location: low back pain Back pain laterality: bilateral Sciatica presence: without sciatica Qualified Code(s): M54.50 - Low back pain, unspecified; G89.29 - Other chronic pain (7) DDD (degenerative disc disease): QUALIFIERS: Spinal region: lumbar Qualified Code(s): M51.36 - Other intervertebral disc degeneration, lumbar region (8) Lumbar spondylosis: (9) Obesity (BMI 30-39.9): PLAN: Plan This is a very pleasant 82-year-old gentleman who presents with LGIB with blood noted on rectal exam in the ER with a hemoglobin of 9.1 g/dL present on admission (down from his baseline of 11.3 g/dL on November 06, 2024). The differential diagnosis for his lower GI bleed would be diverticular bleed, lower GI bleed secondary to hemorrhoidal disease, angiodysplasia, neoplasia, upper GI bleed with rapid transit. He was explained alternatives, risk and benefits include not withstanding bleeding, infection, sepsis, perforation, need for more charge and . He will have an ASA of 3. Charges/Coding Visit Charges Inpatient E&M: 83164 Init Hosp L2
[2024-11-23 12:25] LABS: Bedside Glucose 183 mg/dL (74-106)
[2024-11-23 19:03] LABS: Bedside Glucose 169 mg/dL (74-106)
[2024-11-23] MEDS: Atorvastatin Calcium 20 MG Tablet PO (20:52)
[2024-11-23] MEDS: CARBIDOPA/LEVODOPA CR 50/200 Tablet PO (20:52)
[2024-11-23] MEDS: levoFLOXacin IV 500 MG/100 ML BAG 100 MG IV (20:53)
[2024-11-24] VITALS (10 sets, daily range): BP systolic 109–124; BP diastolic 53–64; PULSE 58–76; RESP 15–18; TEMP 36.1–36.7; O2SAT 92–100; BMI 34.6
[2024-11-24 00:38] LABS: Bedside Glucose 160 mg/dL (74-106)
[2024-11-24 06:16] LABS: ALB/GLOB Ratio 0.8 RATIO (0.9-2.4); AST(SGOT) 15 U/L (15-37); Alanine Aminotransfer ALT/SGPT 9 U/L (16-61); Albumin, Serum 3.1 g/dL (3.2-5.0); Alkaline Phosphatase 61 U/L (45-117); Anion Gap 3 (5-15); BUN 10 mg/dL (7-18); BUN/Creat Ratio 8.8 RATIO (10-20); Calcium,Total 9.2 mg/dL (8.5-10.1); Chloride 104 mmol/L (98-107); Creatinine, Serum 1.13 mg/dL (0.70-1.30); EST Glomerular Filtration Rate 66 mL/min (>60); Est Glom Filt Rate - Afr Amer 80 mL/min (>60); Estimated Creatinine Clearance 58.68 ml/min; Globulin 4.1 g/dL (2.2-4.2); Glucose 182 mg/dL (74-106); Potassium 4.4 mmol/L (3.5-5.1); Protein, Total 7.2 g/dL (6.4-8.2); Sodium Level 136 mmol/L (136-145)
[2024-11-24 06:17] LABS: Absolute Lymphocyte Count 2.04 X10^3/uL (0.83-4.51); Basophil# 0.05 X10^3/uL; Basophil% 1.1 % (0-1); Eosinophils% 2.1 % (0-5); Hematocrit 30.8 % (40-54); Hemoglobin 9.7 g/dL (13.0-16.5); Lymphocyte # 2.04 X10^3/ul (0.83-4.51); Lymphocyte % 43.5 % (19-41); Mean Corp Hgb Conc 31.5 g/dL (32-36); Mean Corpuscular Hgb 31.9 pg (27.0-32.0); Mean Corpuscular Volume 101.3 fL (80-94); Mean Platelet Vol. 9.8 fl (6.2-12.0); Monocyte# 0.49 X10^3/uL; Monocyte% 10.4 % (0-10); NRBC Flagged by Analyzer 0 % (0-5); Neutrophil # 1.99 X10^3/uL (2.7-7.7); Neutrophil % 42.5 % (47-70); Platelet Count 238 K/mm3 (150-450); RBC Distribution Width CV 15.8 % (11.6-14.6); RBC Distribution Width SD 58.1 fl (35.1-43.9); Red Blood Count 3.04 M/mm3 (4.6-6.2); White Blood Count 4.7 K/mm3 (4.4-11.0)
[2024-11-24 06:21] LABS: Bedside Glucose 174 mg/dL (74-106)
[2024-11-24] MEDS: Budesonide Respules 0.5 MG/2 ML AMPUL.NEB. INHALATION (07:59)
[2024-11-24] MEDS: Ipratropium/Albuterol Sulfate 3 ML AMPUL.NEB INHALATION (07:59)
[2024-11-24] MEDS: DULoxetine Hcl 60 MG Capsule PO (08:23)
[2024-11-24] MEDS: Primidone 250 MG Tablet PO ×2 (08:26→14:25)
[2024-11-24] MEDS: Gabapentin 600 MG Tablet PO ×2 (08:31→14:25)
--- NOTE | 2024-11-24 11:22 | NURSING ---
pt off unit at this time for colonoscopy
[2024-11-24 11:32] LABS: Bedside Glucose 146 mg/dL (74-106)
--- NOTE | 2024-11-24 12:15 | PCM.PRE.AN2 ---
ASA Classification* ASA Classification ASA Classification: 3 Assessment & Plan Anesthesia* Anesthesia Assessment Anesthesia Assessment: Discussed sedation and/or anesthesia options, risks, benefits, and alternatives with patient/parents/legal guardian/POA. Questions invited. The patient/parents/legal guardian/POA seems to understand and agrees to proceed with anesthesia plan. Reviewed the physical assessment, medical history, allergy history and patient home medications list prior to surgery/procedure/anesthetic and documented any changes. Performed airway and anesthesia risk assessments. Anesthesia Type Anesthesia Type: MAC History Source History Obtained from:: Patient and Chart Anesthesia Focused Assessment* Temperature: 97.4 F Pulse Rate: 59 Blood Pressure: 109/63 Respiratory Rate: 16 Pulse Ox: 95 Oxygen Delivery Method: Room Air Airway Assessment Mouth opens: >3 cm Mallampati Score: III Teeth Condition: Dentures (Upper dentures are out.) and Missing (Several missing teeth on the bottom. The rest are tight.) Neck Range of motion (ROM): Limited ROM Focused Labs Anesthesia Preop lab: CBC WBC 4.7 K/mm3 (4.4-11.0) 11/24/24 05:27 RBC 3.04 M/mm3 (4.6-6.2) L 11/24/24 05:27 Hgb 9.7 g/dL (13.0-16.5) L 11/24/24 05:27 Hct 30.8 % (40-54) L 11/24/24 05:27 Plt Count 238 K/mm3 (150-450) 11/24/24 05:27 CHEMISTRY Potassium 4.4 mmol/L (3.5-5.1) 11/24/24 05:27 Sodium 136 mmol/L (136-145) 11/24/24 05:27 Magnesium 2.0 mg/dL (1.6-2.6) 11/23/24 05:21 Phosphorus 2.8 mg/dL (2.5-4.9) 11/23/24 05:21 BUN 10 mg/dL (7-18) 11/24/24 05:27 Creatinine 1.13 mg/dL (0.70-1.30) 11/24/24 05:27 Glucose 182 mg/dL (74-106) H 11/24/24 05:27 POC Glucose 146 mg/dL (74-106) H 11/24/24 11:09 TSH 3.280 uIU/mL (0.358-3.740) 11/21/24 17:22 COAG PT 15.5 SECONDS (11.7-14.9) H 10/03/24 13:30 Pre-Assessment Diagnosis/Proposed Procedure Planned Operative Procedure(s): Colonoscopy with possible biopsy and/or cautery. 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 SURGERY 05/03/21 08:43 Any Problems With Anesthesia No 11/24/24 07:31 Cholinesterase deficiency No 11/24/24 07:31 You/Your Family Experience No 11/24/24 07:31 fever (hyperthermia) with Relationship Recent Exposure to Contagious No 11/24/24 07:31 Disease Does patient have nerve No 11/24/24 07:31 stimulator Patient instructed to have No 11/24/24 07:31 device shut off --Does patient have Pacemaker or ICD? When Was Last Pacemaker Check QUESTION #4 FULL TEXT: You/Your Family Experience fever (hyperthermia) with Anesthesia Last Oral Intake Last Oral intake: Last Oral Intake NPO since Meds taken in AM with sips of water? Meds patient instructed to take am of surgery Any additional information?: Yes NPO since: 00:00 Meds taken in AM with sips of water?: Yes PONV PONV - computer hardware designer: PONV - computer hardware designer Female HX of Motion Sickness HX of N/V After Surgery Non-Smoker Duration of Surgery greater than 60 minutes Number of Risk Factors PONV Score Height & Weight Height & Weight: Anesthesia: Height & Weight Height 5 ft 8 in 11/22/24 11:59 Weight: 103.2 kg 11/24/24 05:34 Body Mass Index (BMI) 34.6 11/24/24 05:34 Respiratory Assessment Respiratory Assessment - computer hardware designer: Respiratory Tract Infection Hx - computer hardware designer Hx Respiratory Tract Infection No 11/24/24 07:31 STOP Sleep Apnea STOP Sleep Apnea - computer hardware designer: STOP Sleep Apnea - computer hardware designer Hx Hypertension No 11/22/24 15:49 Hx Sleep Apnea Yes 11/21/24 20:20 CPAP Yes 11/21/24 20:20 BIPAP No 11/21/24 20:20 Do you snore loudly (louder than talking or can be heard Do you often feel tired/ fatigued/ sleepy during daytime? Has anyone observed you stop breathing during sleep? STOP Results Positive 11/21/24 20:20 QUESTION #5 FULL TEXT : Do you snore loudly (louder than talking or can be heard through closed doors)? 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 Specify any problems Hx of Preganancy in last 3 N/A 11/21/24 20:20 Months Nurse Filling Out Transfusion KSNELL 11/21/24 20:20 & Questions: Date: 11/21/24 11/21/24 20:20 Time: 21:47 11/21/24 20:20 Patient unable to answer at this time (ie. confused, unrespo /Reproduction History /Reproductive History - computer hardware designer: /Reproductive Hx- computer hardware designer Hx Now No 11/24/24 07:31 Gestational Age (in weeks): EDC: Hx Hx Para Hx Section SAB No 11/24/24 07:31 Active Medications Active Medications: Current Medications Generic Name Dose Route Start Last Admin Trade Name Freq PRN Reason Stop Dose Admin Acetaminophen 650 mg 11/21/24 20:42 Acetaminophen 325 Mg Tablet PO Q6H PRN PRN Pain 1-5/10 Or Fever>100.7 Hydrocodone Bitart/Acetaminophen 1 tablet 11/21/24 20:42 Hydrocodone Bitartrate/Apap 5/325 Tablet PO Q6H PRN PRN Pain Score 6-10 Albuterol/Ipratropium 3 ml 11/21/24 20:42 11/24/24 07:59 Ipratropium/Albuterol Sulfate 3 Ml Ampul.Neb INHALATION 3 ml Q6H.RT JANET Administration Atorvastatin Calcium 20 mg 11/21/24 22:00 11/23/24 20:52 Atorvastatin Calcium 20 Mg Tablet PO 20 mg QHS JANET Administration Budesonide 0.5 mg 11/21/24 21:00 11/24/24 07:59 Budesonide Respules 0.5 Mg/2 Ml Ampul.Neb. INHALATION 0.5 mg Q12H.RT JANET Administration Carbidopa/Levodopa 1 tablet 11/22/24 07:00 11/24/24 06:15 Carbidopa/Levodopa 25/100 Tablet PO Not Given BIDAC JANET Carbidopa/Levodopa 1 tablet 11/21/24 22:00 11/24/24 08:27 Carbidopa/Levodopa Cr 50/200 Tablet PO 1 tablet QHS JANET Administration Duloxetine HCl 60 mg 11/21/24 22:00 11/24/24 08:23 Duloxetine Hcl 60 Mg Capsule PO 60 mg BID JANET Administration Fenofibrate 145 mg 11/22/24 08:00 11/24/24 08:25 Fenofibrate 145 Mg Tablet PO Not Given DAILYCM JANET Gabapentin 600 mg 11/21/24 22:00 11/24/24 11:11 Gabapentin 600 Mg Tablet PO Not Given TIDCM JANET Glucagon 1 mg 11/21/24 20:42 Glucagon 1 Mg/Ml Syringe IM X1 PRN HYPOGLYCEMIA Protocol Sodium Chloride 100 mls @ 15 mls/hr 11/21/24 20:25 IV .Q6H40M PRN Saline Flush Sodium Chloride 100 mls @ 15 mls/hr 11/21/24 20:25 IV .Q6H40M PRN Additional IVPB Infusion Pantoprazole Sodium 40 mg/ 110 mls @ 330 mls/hr 11/21/24 20:42 11/23/24 10:10 Sodium Chloride IV Infused Q24 JANET Infusion Levofloxacin 500 mg in 100 mls @ 100 mls/hr 11/21/24 20:42 11/23/24 21:53 Levaquin Iv IV Infused Q24@2200 JANET Infusion Dextrose 250 mls @ 0 mls/hr 11/21/24 20:42 Dextrose 10%-Water IV .Q0M PRN HYPOGLYCEMIA Protocol As Directed Insulin Glargine 8 unit 11/22/24 10:00 11/24/24 08:25 Insulin Glargine-Yfgn 100 Unit/Ml Pen SC Not Given DAILY [facility] Insulin Human Lispro 0 unit 11/22/24 00:00 11/24/24 11:11 Insulin Lispro 100 Unit/Ml Insuln.Pen SC Not Given Q6 [facility] Protocol Lidocaine/Prilocaine 1 gm 11/21/24 20:42 Lidocaine/Prilocaine Hcl 5 Gm Tube TOPICAL DAILY PRN PRN port access Protocol Losartan Potassium 25 mg 11/22/24 10:00 11/24/24 08:24 Losartan Potassium 25 Mg Tablet PO Not Given DAILY [facility] Protocol Melatonin 3 mg 11/21/24 20:42 Melatonin 3 Mg Tablet PO QHS PRN PRN INSOMNIA Nicotine 14 mg 11/22/24 10:00 11/23/24 09:40 Nicotine 14 Mg Patch TD 14 mg DAILY JANET Administration [id number] Ethyl Esters 1 gm 11/22/24 10:00 11/24/24 08:25 [place]-3 Acid Ethyl Esters 1 Gm Capsule PO Not Given DAILY JANET Primidone 250 mg 11/21/24 22:00 11/24/24 08:26 Primidone 250 Mg Tablet PO 250 mg TID JANET Administration Promethazine HCl 25 mg 11/21/24 20:42 Promethazine 25 Mg/Ml Syringe IM Q6H PRN PRN Breakthrough Nausea/Vomiting Sodium Chloride 10 - 40 ml 11/21/24 20:25 11/22/24 21:56 0.9% Saline Lock 10 Ml Syringe IV 10 ml UD PRN Administration SALINE FLUSH PFSH Medical History DDD (degenerative disc disease) Lumbar spondylosis MSSA bacteremia Acute hyperglycemia COPD (chronic obstructive pulmonary disease) Blood bacterial culture positive Arthritis of sacroiliac joint Candidal dermatitis Candidiasis Sleep apnea Kidney disease Smoker H/O cardiovascular stress test History of left heart catheterization (~02/24/10) Cardiology follow-up encounter Port-A-Cath in place (~01/24/21) History of blood transfusion bladder instill antica agent Low back pain Primary hypertension Emphysema, unspecified Congenital stenosis and stricture of esophagus Cardiac murmur, unspecified Atherosclerotic heart disease Anemia Acute kidney failure, unspecified Gross hematuria BPH with obstruction/lower urinary tract symptoms Bladder cancer Nicotine dependence, cigarettes, uncomplicated JOHN (obstructive sleep apnea) COPD (chronic obstructive pulmonary disease) Acute CO, inferior wall CKD stage 3 Diabetes mellitus Hyperlipidemia Pulmonary HTN CAD (coronary artery disease) Diabetic neuropathy Mitral valve regurgitation Tricuspid valve regurgitation B12 deficiency Parkinson disease Pneumonia Tobacco use disorder, continuous Obesity Home Medications ?Medication ?Instructions ?Recorded ?Last Taken ?Type duloxetine 60 mg capsule,delayed 60 mg PO BID DEPRESSION 03/12/18 11/24/24 History release omega-3 fatty acids 1,000 mg 1,000 mg PO QDAY SUPPLEMENT 03/12/18 Unknown History capsule fenofibrate 160 mg tablet 160 mg PO DAILY CHOLESTEROL 01/14/21 Unknown History glimepiride 4 mg tablet 4 mg PO DAILY DIABETIC 01/14/21 Unknown History pioglitazone 45 mg tablet (Actos) 45 mg PO DAILY DIABETES 01/14/21 Unknown History primidone 250 mg tablet 250 mg PO TID PARKINSONS 01/14/21 11/24/24 History simvastatin 40 mg tablet 40 mg PO QHS CHOLESTEROL 01/14/21 Unknown History hydrocodone-acetaminophen 5-325mg 1 tab PO Q6H PRN Pain 03/23/21 Unknown History 5mg-325mg ipratropium 0.5 mg-albuterol 3 mg 3 ml inhalation Q6H COPD J44.9 07/03/22 Unknown Rx (2.5 mg base)/3 mL nebulization #180 mL soln lidocaine-prilocaine 2.5 %-2.5 % 1 applic topical DAILY PRN PRN 08/10/23 Unknown Rx topical cream port access 30 days #1 tube carbidopa 25 mg-levodopa 100 mg 1 tab PO BID PARKINSON'S 10/31/23 11/24/24 History tablet losartan 25 mg tablet 25 mg PO QDAY HTN 04/01/24 Unknown History insulin glargine 100 unit/mL (3 15 unit subcut .Daily Diabetes 10/05/24 Unknown History mL) subcutaneous pen (Lantus Solostar U-100 Insulin) cefazolin 2 gram intravenous 2 g IV Q8H 10 days 10/09/24 Unknown Rx solution budesonide 160 mcg-glycopyr 9 2 inh inhalation BID WHEEZING 10/16/24 Unknown Rx mcg-formot 4.8 mcg/actuation HFA #10.7 grams inhaler ([employer]) blood sugar diagnostic (OneTouch 11/21/24 Unknown History Verio test strips) blood-glucose meter (OneTouch 11/21/24 Unknown History Verio Flex Meter) carbidopa ER 50 mg-levodopa 200 mg 1 tab PO QHS PARKINSON'S 11/21/24 Unknown History tablet,extended release gabapentin 600 mg tablet 600 mg PO TID NEUROPATHY 11/21/24 11/24/24 History lancets 33 gauge (OneTouch Delica 11/21/24 Unknown History Plus Lancet) Allergy/AdvReac Type Severity Reaction Status Date / Time cefepime Allergy Severe Anaphylaxis Verified 11/21/24 16:55 cefazolin Allergy Intermediate Hives Verified 11/21/24 16:55 Family History Mother Ovarian cancer Father Heart disease Brother Leukemia Surgical History Status post radical cystoprostatectomy Hx of transurethral resection of prostate (~01/05/21) History of quadruple bypass History of hand surgery History of ankle surgery Hx of cystoscopy S/P TURP Previous back surgery S/P CABG x 4 Social History current occupational status: retired Smoking Status: Light Smoker (<10/day) alcohol intake: never substance use type: does not use caffeine: Yes Type: coffee Number of servings: 1 eating out: rarely or never Review of Systems (Anesthesia) ROS Narrative System reviewed and no additional complaints, except as documented.
--- NOTE | 2024-11-24 12:30 | COLBX_PTH ---
PATIENT: AKASH GREGORY LOC: [facility] U#:[id number] AGE/SX: 84/M ROOM: [facility] RE11/21/[address]: Dr. Jesus Ingram DO : 1940 BED: 1 DIS: 11/24/2024 SPEC #: [id number] RECD: 11/25/24 07:21 STATUS: CHARLES REMarlon #: [id number] HOMA: 11/24/24 12:[address]: Jesus Ingram DEPT: SURGICAL PATHOLOGY RECD BY: Surekha Robles ENTERED: 11/25/24 09:32 SP TYPE: COLON BX OT DR: MD Dr. Rudolph Kidd DO Richard Dennis Tompkins, S[employer]-C Tissues: A - Sigmoid colon biopsy B - Sigmoid colon biopsy Procedures: Surgery Specimen Level IV HEADER OPERATION: Colonoscopy, polypectomy PRE-OP DIAGNOSIS: Lower GI bleed, acute cystitis without hematuria, frequent falls, dizziness TISSUE SUBMITTED: A- Sigmoid polyp biopsy, B- Sigmoid polyp #2 MICROSCOPIC DIAGNOSIS A. Sigmoid colon polyp, biopsy: Hyperplastic polyp. B. Sigmoid polyp #2, polypectomy: Tubular adenoma. 11/27/2024 MICROSCOPIC DESCRIPTION Slides are reviewed. GROSS DESCRIPTION A. Received in fixative is one container labeled with the patient's name and designated Sigmoid polyp biopsy. The specimen consists of one irregular fragment of light haider soft tissue that measures 0.5 x 0.2 x 0.1 cm. The specimen is totally submitted in one cassette. B. Received in fixative is one container labeled with the patient's name and designated Sigmoid polyp #2. The specimen consists of one irregular fragment of light haider soft tissue that measures 1.0 x 0.5 x 0.4 cm. The specimen is totally submitted in one cassette. 11/25/2024 TC:5 CPT:73695z5
--- NOTE | 2024-11-24 12:35 | PN.GI_ITS ---
Subjective Subjective Patient tolerated his prep without any problems. He thinks that his stools are clear. Objective Data Objective Data Vital Signs: Vital Signs Temp Pulse Resp BP Pulse Ox O2 Del Method 97.4 F L 59 L 16 109/63 95 Room Air 11/24/24 12:21 11/24/24 12:21 11/24/24 12:21 11/24/24 12:21 11/24/24 12:21 11/24/24 12:29 Oxygen Delivery Method Room Air Weight: 227 lb 8.273 oz Body Mass Index (BMI) 34.6 Intake & Output: Intake and Output for Last 24 Hours 11/22/24 11/23/24 11/24/24 23:59 23:59 23:59 Intake Total 1560 / 1560 1660 / 1660 Output Total 2900 / 2900 2650 / 2650 875 / 875 Balance -1340 / -1340 -990 / -990 -875 / -875 Lab / Micro Data 11/24/24 05:27 11/24/24 05:27 Labs: Laboratory Results - last 24 hr 11/23/24 18:38: POC Glucose 169 H 11/24/24 00:20: POC Glucose 160 H 11/24/24 05:27: WBC 4.7, RBC 3.04 L, Hgb 9.7 L, Hct 30.8 L, MCV 101.3 H, MCH 31.9, MCHC 31.5 L, RDW Std Deviation 58.1 H, RDW Coeff of Yara 15.8 H, Plt Count 238, MPV 9.8, Immature Gran % (Auto) 0.400, Neut % (Auto) 42.5 L, Lymph % (Auto) 43.5 H, [place] % (Auto) 10.4 H, Eos % (Auto) 2.1, Baso % (Auto) 1.1 H, Absolute Neuts (auto) 2.0, Absolute Lymphs (auto) 2.04, Nucleated RBC % 0, Sodium 136, Potassium 4.4, Chloride 104, Carbon Dioxide 30.0, Anion Gap 3 L, BUN 10, Creatinine 1.13, Estim Creat Clear Calc 58.68, Est GFR (MDRD) Af Amer 80, Est GFR (MDRD) Non-Af 66, BUN/Creatinine Ratio 8.8 L, Glucose 182 H, Calcium 9.2, Total Bilirubin 0.40, AST 15, ALT 9 L, Alkaline Phosphatase 61, Total Protein 7.2, Albumin 3.1 L, Globulin 4.1, Albumin/Globulin Ratio 0.8 L 11/24/24 06:03: POC Glucose 174 H 11/24/24 11:09: POC Glucose 146 H Micro: Microbiology 11/21/24 18:15 Urine, Clean Catch Urine Culture - Final Escherichia coli Pseudomonas aeruginosa 11/21/24 17:25 Stool Stool Occult Blood (STEPHANI) - Final Occult Blood Positive Physical Exam Narrative Physical Examination: General: Awake, alert, oriented x 3 and cooperative, Skin: Normal color, normal turgor, no icterus, no cyanosis except occasional stage ecchymoses, abrasion. HEENT: AT/NC, EOMI, PERRLA, MMM. Lungs: Mildly diminished, greater bases, appropriate effort, no rales, ronchi or wheezing. Heart: Regular rate and rhythm; no gallop, rub audible. Abdomen: Soft, obese, NTTP, ND, right-sided urostomy in place with notable urine output, mildly hyperactive BS. Extremities: No cyanosis, no clubbing, mild trace ankle edema. Neurological: Patient awake, alert, oriented as noted cognitive function intact; pupils equally reactive to light and accommodation, cranial nerves grossly normal, moving all 4 extremities, strength improved, moderately globally decreased. Psychiatric: Affect appears more interactive, normal, no acute evidence of depressive or anxiety feelings but does have underlying history. Assessment & Plan Assessment/Plan (1) LGI bleed: (2) Acute cystitis without hematuria: (3) Frequent falls: (4) Dizziness: (5) Osteoarthritis: QUALIFIERS: Osteoarthritis location: unspecified site O steoarthritis type: unspecified Qualified Code(s): M19.90 - Unspecified osteoarthritis, unspecified site (6) Chronic back pain: QUALIFIERS: Back pain location: low back pain Back pain laterality: bilateral Sciatica presence: without sciatica Qualified Code(s): M 54.50 - Low back pain, unspecified; G89.29 - Other chronic pain (7) DDD (degenerative disc disease): QUALIFIERS: Spinal region: lumbar Qualified Code(s): M51.36 - Other intervertebral disc degeneration, lumbar region (8) Lumbar spondylosis: (9) Obesity (BMI 30-39.9): PLAN: Plan This is a very pleasant 82-year-old gentleman who presents with LGIB with blood noted on rectal exam in the ER with a hemoglobin of 9.1 g/dL present on admission (down from his baseline of 11.3 g/dL on November 06, 2024). The differential diagnosis for his lower GI bleed would be diverticular bleed, lower GI bleed secondary to hemorrhoidal disease, angiodysplasia, neoplasia, upper GI bleed with rapid transit. He was explained alternatives, risk and benefits include not withstanding bleeding, infection, sepsis, perforation, need for more charge and . He will have an ASA of 3. Charges/Coding Visit Charges Inpatient E&M: 13711 Subs Hosp L2
--- NOTE | 2024-11-24 13:28 | OP.COLON_ITS ---
Patient Name: Rick Cramer Procedure Date: 11/24/2024 12:39 PM Date of : 1940 Age: 84 Procedure: Colonoscopy Indications: Hematochezia Providers: Jaswant Palomo DO Medicines: Monitored Anesthesia Care Patient Profile: This is an 84 year old male. Refer to note in patient chart for documentation of history and physical. Last Colonoscopy: more than 10 years ago. Complications: No immediate complications. Procedure: Pre-Anesthesia Assessment: - Prior to the procedure, a History and Physical was performed, and patient medications and allergies were reviewed. The patient is competent. The risks and benefits of the procedure and the sedation options and risks were discussed with the patient. All questions were answered and informed consent was obtained. Patient identification and proposed procedure were verified by the physician in the pre-procedure area. Mental Status Examination: alert and oriented. Airway Examination: normal oropharyngeal airway and neck mobility. Respiratory Examination: clear to auscultation. CV Examination: normal. Prophylactic Antibiotics: The patient does not require prophylactic antibiotics. Prior Anticoagulants: The patient has taken no anticoagulant or antiplatelet agents except for NSAID medication. ASA Grade Assessment: III - A patient with severe systemic disease. After reviewing the risks and benefits, the patient was deemed in satisfactory condition to undergo the procedure. The anesthesia plan was to use monitored anesthesia care (MAC). Immediately prior to administration of medications, the patient was re-assessed for adequacy to receive sedatives. The heart rate, respiratory rate, oxygen saturations, blood pressure, adequacy of pulmonary ventilation, and response to care were monitored throughout the procedure. The physical status of the patient was re-assessed after the procedure. After I obtained informed consent, the scope was passed under direct vision. Throughout the procedure, the patient's blood pressure, pulse, and oxygen saturations were monitored continuously. The pediatric colonoscope was introduced through the anus and advanced to the terminal ileum. The colonoscopy was performed without difficulty. The patient tolerated the procedure well. The quality of the bowel preparation was fair. The terminal ileum, ileocecal valve, appendiceal orifice, and rectum were photographed. Scope In: 12:53:14 PM Scope Withdrawal Time 0 hours 15 minutes 51 seconds Scope Out: 1:22:48 PM Total Procedure Duration Time 0 hours 29 minutes 34 seconds Findings: Hemorrhoids were found on perianal exam. Non-bleeding external and internal hemorrhoids were found during retroflexion. The hemorrhoids were Grade III (internal hemorrhoids that prolapse but require manual reduction). A 9 mm polyp was found in the sigmoid colon. The polyp was sessile. The polyp was removed with a hot snare. Resection and retrieval were complete. Verification of patient identification for the specimen was done. Estimated blood loss was minimal. A 4 mm polyp was found in the sigmoid colon. The polyp was sessile. The polyp was removed with a jumbo cold forceps. Resection and retrieval were complete. Verification of patient identification for the specimen was done. Estimated blood loss was minimal. Stool was found in the sigmoid colon, in the transverse colon, in the ascending colon and in the cecum. Impression: - Preparation of the colon was fair. - Hemorrhoids found on perianal exam. - Non-bleeding external and internal hemorrhoids. - One 9 mm polyp in the sigmoid colon, removed with a hot snare. Resected and retrieved. - One 4 mm polyp in the sigmoid colon, removed with a jumbo cold forceps. Resected and retrieved. Recommendation: - Repeat colonoscopy in 3 years for surveillance. - Continue present medications. Procedure Code(s): --- Professional --- 05570, RT, Colonoscopy, flexible; with removal of tumor(s), polyp(s), or other lesion(s) by snare technique 34370, 59, Colonoscopy, flexible; with biopsy, single or multiple CPT copyright 2021 [employer]. All rights reserved. The codes documented in this report are preliminary and upon school age program teacher review may be revised to meet current compliance requirements. Jaswant Palomo DO 11/24/2024 1:27:43 PM This report has been signed electronically. Number of Addenda: 0 Note Initiated On: 11/24/2024 12:39 PM
--- NOTE | 2024-11-24 13:28 | OP.CCLET_ITS ---
11/24/2024 Ruben Angela Re : Colonoscopy procedure for Rick Herbert Julio César This procedure was performed on Sunday, November 24, 2024. My impressions and recommendations are as follows: Impressions : - Preparation of the colon was fair. - Hemorrhoids found on perianal exam. - Non-bleeding external and internal hemorrhoids. - One 9 mm polyp in the sigmoid colon, removed with a hot snare. Resected and retrieved. - One 4 mm polyp in the sigmoid colon, removed with a jumbo cold forceps. Resected and retrieved. Recommendations : - Repeat colonoscopy in 3 years for surveillance. - Continue present medications. My findings are described in the full procedure note, which is enclosed. If I can be of further assistance, please feel free to contact me at . Sincerely, Jaswant Friend, 11/24/2024 1:27:43 PM This report has been signed electronically.
--- NOTE | 2024-11-24 13:32 | PCM.POST.ANE ---
Anesthesia: Postop Eval I Current Vital Signs Temperature: 97 F Pulse Rate: 76 Blood Pressure: 111/53 Respiratory Rate: 16 Pulse Ox: 100 Oxygen Delivery Method: Room Air Assessment Airway patent: Yes Spontaneous unlabored respirations: Yes Mental status: Awake and Calm nausea: No Vomiting: No Anesthesia Complication: No Fluid Hydration Crystalloid volume administer (ml): 90 Total IV fluid infused: 90 Progress Note Anesthesia document: Postop Eval 1 completed: Yes
--- NOTE | 2024-11-24 14:11 | PCM.POSTANE2 ---
Anesthesia Postop Eval I Sum Postop Eval Completion status Anesthesia document: Postop Eval 1 completed: Yes Anesthesia Postop Eval I Summary Anesthesia Postop Eval I Summary: Anesthesia Postop Eval I: Assessment Summary Airway patent Yes 11/24/24 13:33 [email or web address] Spontaneous unlabored Yes 11/24/24 13:33 [email or web address] respirations Mental status Awake,Calm 11/24/24 13:33 [email or web address] nausea No 11/24/24 13:33 [email or web address] Vomiting No 11/24/24 13:33 [email or web address] Anesthesia Postop Eval I: Fluid Summary Crystalloid volume administer 90 11/24/24 13:33 [email or web address] (ml) Colloids volume administered ( ml) Blood Product volume administered (ml) Total IV fluid infused 90 11/24/24 13:33 [email or web address] Anesthesia Postop Eval I: Summary Notes Anesthesia Complication No 11/24/24 13:33 [email or web address] Anesthesia Complication Comment: Post-operative progress note Anesthesia: Postop Eval II Evaluation Mental status: Awake and Calm Pain Level: 0 nausea: No Vomiting: No Complications Anesthesia Complication: No
[2024-11-24] MEDS: 0.9% Saline Lock 10 ML Syringe IV (14:24)
[2024-11-24] MEDS: Pantoprazole Sodium 40 MG in 0.9% Normal Saline (100mL MB+) 100 ML 330 MG IV (14:24)
[2024-11-24] MEDS: Lactobacillis Acidophilus 1 CAP PO ×2 (14:25→16:37)
[2024-11-24] MEDS: Fenofibrate 145 MG Tablet PO (14:25)
[2024-11-24] MEDS: Losartan Potassium 25 MG Tablet PO (14:25)
--- NOTE | 2024-11-24 16:11 | PCM.DC ---
Discharge Instructions Diet Discharge Diet: No restrictions DC O2, CPAP, BIPAP needs Home O2 Discharge instructions: No Dressing / Incision Discharge Activity: No Restrictions Follow Up Care Test Results: Test results from this visit will be discussed in further detail at your follow-up appointment, if applicable. Discharge Plan Admission Admit Date/Time: 11/21/24 19:11 Primary Reason for Your Visit: Lower GI bleed, dizziness with falls Attending Provider: Jesus Ingram Primary Care Provider: Ruben Angela WATER PIPE INSTALLER Consulting Providers: Rudolph Palmer; Angie Perea Instructions Additional Instructions / Restrictions: ? Used [id number] witch ambreen pads as needed for hemorrhoids. Recommend stool softeners and/or laxatives as needed to keep bowel movements regular. ? Call the GI office to schedule follow-up appointment as needed. Discharge Orders/Prescriptions Prescriptions: Continued omega-3 fatty acids 1,000 mg capsule 1,000 mg PO QDAY duloxetine 60 mg capsule,delayed release(DR/EC) 60 mg PO BID hydrocodone-acetaminophen 5-325 mg tablet 1 tab PO Q6H PRN (Reason: Pain) carbidopa-levodopa 25-100 mg tablet 1 tab PO BID losartan 25 mg tablet 25 mg PO QDAY Breztri Aerosphere 160-9-4.8 mcg/actuation HFA aerosol inhaler 2 inh inhalation BID Qty: 10.7 6RF pioglitazone [Actos] 45 MG tablet 45 mg PO DAILY simvastatin 40 MG tablet 40 mg PO QHS primidone 250 MG tablet 250 mg PO TID glimepiride 4 MG tablet 4 mg PO DAILY fenofibrate 160 MG tablet 160 mg PO DAILY insulin glargine [Lantus Solostar U-100 Insulin] 100 unit/mL (3 mL) insulin pen 15 unit subcut .Daily Patient Comments: 15 units daily carbidopa-levodopa 50-200 mg tablet extended release 1 tab PO QHS gabapentin 600 mg tablet 600 mg PO TID (DME) blood-glucose meter [AcumentricsTouch Verio Flex meter] [facility] MISCELLANEOUS UD (DME) OneTouch Verio test strips Strip MISCELLANEOUS TID (DME) lancets [AcumentricsTouch Delica Plus Lancet] 33 gauge [facility] [place] MISCELLANEOUS TID ipratropium-albuterol 0.5 mg-3 mg(2.5 mg base)/3 mL solution for nebulization 3 ml INHALATION Q6H Qty: 180 11RF lidocaine-prilocaine 2.5-2.5 % cream 1 applic topical DAILY PRN PRN (Reason: port access) 30 Days Qty: 1 2RF Discontinued cefazolin 2 gram recon soln 2 g IV Q8H 10 Days Rx Instructions: stop date 10/20/24. Dx: mssa bacteremia. weekly bmp, cbc; fax to [phone]. Routine midline care per protocol. Referrals / Follow Up: Jaswant Palomo DO [Med Staff - Active Staff] - Ruben Angela WATER PIPE INSTALLER, WATER PIPE INSTALLER-C [Primary Care Provider] - Disposition Disposition (needs filled in before D/C Order can be placed): Home Health Service
--- NOTE | 2024-11-24 16:11 | PCM.DC.SUM ---
Providers Date of Admission: 11/21/24 Date of Discharge: 11/24/24 Primary Care Physician: Ruben Angela, GIUSEPPE-C Consultations 11/21/24 20:42 Consult: Gastroenterology Routine Consulting Provider: [facility] Reason for Consult: LGIB. EMERGENT Consult: No MD Notified: Yes Date Notified: 11/21/24 Time Notified: 19:13 Method of Notification: ED Physician Initiated Reason For Visit: LGIB Diagnosis Discharge Diagnosis (1) LGI bleed: Status: Acute Code(s): K92.2 - Gastrointestinal hemorrhage, unspecified (2) Frequent falls: Status: Acute Code(s): R29.6 - Repeated falls (3) Dizziness: Status: Acute Code(s): R42 - Dizziness and giddiness Medications at Discharge Home Medications duloxetine 60 mg capsule,delayed release 60 mg PO BID DEPRESSION 03/12/18 omega-3 fatty acids 1,000 mg capsule 1,000 mg PO QDAY SUPPLEMENT 03/12/18 fenofibrate 160 mg tablet 160 mg PO DAILY CHOLESTEROL 01/14/21 glimepiride 4 mg tablet 4 mg PO DAILY DIABETIC 01/14/21 pioglitazone 45 mg tablet (Actos) 45 mg PO DAILY DIABETES 01/14/21 primidone 250 mg tablet 250 mg PO TID PARKINSONS 01/14/21 simvastatin 40 mg tablet 40 mg PO QHS CHOLESTEROL 01/14/21 hydrocodone-acetaminophen 5-325mg 5mg-325mg 1 tab PO Q6H PRN Pain 03/23/21 ipratropium 0.5 mg-albuterol 3 mg (2.5 mg base)/3 mL nebulization soln 3 ml inhalation Q6H COPD J44.9 #180 mL 07/03/22 lidocaine-prilocaine 2.5 %-2.5 % topical cream 1 applic topical DAILY PRN PRN port access 30 days #1 tube 08/10/23 carbidopa 25 mg-levodopa 100 mg tablet 1 tab PO BID PARKINSON'S 10/31/23 losartan 25 mg tablet 25 mg PO QDAY HTN 04/01/24 insulin glargine 100 unit/mL (3 mL) subcutaneous pen (Lantus Solostar U-100 Insulin) 15 unit subcut .Daily Diabetes 10/05/24 budesonide 160 mcg-glycopyr 9 mcg-formot 4.8 mcg/actuation HFA inhaler (Breztri Aerosphere) 2 inh inhalation BID WHEEZING #10.7 grams 10/16/24 blood sugar diagnostic (OneTouch Verio test strips) 11/21/24 blood-glucose meter (OneTouch Verio Flex Meter) 11/21/24 carbidopa ER 50 mg-levodopa 200 mg tablet,extended release 1 tab PO QHS PARKINSON'S 11/21/24 gabapentin 600 mg tablet 600 mg PO TID NEUROPATHY 11/21/24 lancets 33 gauge (OneTouch Delica Plus Lancet) 11/21/24 Hospital Course Operations None Procedures Colonoscopy, EKG and - (Chest x-ray, CT brain) Summary of Care Provided Minutes Spent on Discharge: 35 Hospital Course: Patient is an 84-year-old male who presented [facility] ED on 11/21/2024 with intermittent bloody stools and dizziness with falls. Hospital course as noted below. Patient discharged home with home health care in stable condition on 11/24. 1. Lower GI bleed with mild acute blood loss anemia in setting of chronic anemia ? GI followed. Patient reported history of intermittent bloody stools for about 2-3 weeks prior to admission. Hemoglobin 9.1 on admit, down from baseline 11-12. Hemoglobin did remain stable around 9 during hospitalization with resolution of blood in stool. Colonoscopy on 11/24 showed nonbleeding large internal and external hemorrhoids as well as 2 small polyps that were removed. Suspected that hemorrhoids were the cause of his intermittent bleeding. Recommended conservative treatment with witch ambreen pads on discharge. Can follow-up with outpatient GI as needed. 2. Acute on chronic debility with falls, history of Parkinson's disease ? PT/OT/case management followed. Patient stable for discharge home with home health care on 11/24. Continued home Sinemet and primidone. Chronic medical conditions: ? Class I obesity: BMI 34 on admit. Complicated hospital course, care and prognosis. ? Type 2 diabetes mellitus with neuropathy: Treated with Lantus at reduced dose and sliding scale insulin with meals while inpatient. Resume home Lantus, glimepiride and pioglitazone on discharge. ? History of CAD with CABG, hypertension, hyperlipidemia: Stable. Continue home statin, fenofibrate and losartan on discharge. ? COPD: Stable on room air, not in acute exacerbation. Continue home inhalers. ? Anxiety/depression: Stable. Continue home duloxetine. Total clinical time spent by myself addressing the patient's medical issues, reviewing all the data, and collaborating with patient's care team: 35 minutes. Physical Exam Narrative Physical Examination: General: Awake, alert, oriented x 3 and cooperative, Skin: Normal color, normal turgor, no icterus, no cyanosis except occasional stage ecchymoses, abrasion. HEENT: AT/NC, EOMI, PERRLA, MMM. Lungs: Mildly diminished, greater bases, appropriate effort, no rales, ronchi or wheezing. Heart: Regular rate and rhythm; no gallop, rub audible. Abdomen: Soft, obese, NTTP, ND, right-sided urostomy in place with notable urine output, mildly hyperactive BS. Extremities: No cyanosis, no clubbing, mild trace ankle edema. Neurological: Patient awake, alert, oriented as noted cognitive function intact; pupils equally reactive to light and accommodation, cranial nerves grossly normal, moving all 4 extremities, strength improved, moderately globally decreased. Psychiatric: Affect appears more interactive, normal, no acute evidence of depressive or anxiety feelings but does have underlying history. Weight / BMI Weight Weight: 103.2 kg Body Mass Index (BMI) 34.6 ABG / Lab / Microbiology Data 11/24/24 05:27 11/24/24 05:27 Laboratory: Laboratory Results - last 24 hr 11/24/24 11:09: POC Glucose 146 H 11/24/24 16:32: POC Glucose 212 H Microbiology: Microbiology 11/21/24 18:15 Urine, Clean Catch Urine Culture - Final Escherichia coli Pseudomonas aeruginosa 11/21/24 17:25 Stool Stool Occult Blood (STEPHANI) - Final Occult Blood Positive D/C Instructions DC O2, CPAP, BIPAP Needs Home O2 Discharge instructions: No Meaningful Use Info Meaningful Use Meaningful Use Diagnoses (Choose all that apply): None applicable Ischemic Stroke Statin Dosing Therapy Reference: STATIN DOSE THERAPY REFERENCE: * Patients > 75 years receive moderate or high dose statin therapy. * Patients 75 years or YOUNGER should receive HIGH intensity statin dose unless contraindicated. You will be required to document reason for non-treatment if statin daily dose does not meet guidelines. HIGH DOSE STATIN THERAPY DAILY Atorvastatin > than or = to 40 mg Rosuvastatin > than or = to 20 mg Amlodipine + Atorvastatin > than or = to 2.5/40 mg Ezetimibe + Simvastatin 10/80 mg Simvastatin 80mg Discharge Plan Admission Admit Date/Time: 11/21/24 19:11 Primary Reason for Your Visit: Lower GI bleed, dizziness with falls Attending Provider: Jesus Ingram Primary Care Provider: Ruben Angela TRAIN DRIVER Consulting Providers: Rudolph Palmer; Angie Perea Instructions Additional Instructions / Restrictions: ? Used [id number] witch ambreen pads as needed for hemorrhoids. Recommend stool softeners and/or laxatives as needed to keep bowel movements regular. ? Call the GI office to schedule follow-up appointment as needed. Discharge Orders/Prescriptions Prescriptions: Continued omega-3 fatty acids 1,000 mg capsule 1,000 mg PO QDAY duloxetine 60 mg capsule,delayed release(DR/EC) 60 mg PO BID hydrocodone-acetaminophen 5-325 mg tablet 1 tab PO Q6H PRN (Reason: Pain) carbidopa-levodopa 25-100 mg tablet 1 tab PO BID losartan 25 mg tablet 25 mg PO QDAY Breztri Aerosphere 160-9-4.8 mcg/actuation HFA aerosol inhaler 2 inh inhalation BID Qty: 10.7 6RF pioglitazone [Actos] 45 MG tablet 45 mg PO DAILY simvastatin 40 MG tablet 40 mg PO QHS primidone 250 MG tablet 250 mg PO TID glimepiride 4 MG tablet 4 mg PO DAILY fenofibrate 160 MG tablet 160 mg PO DAILY insulin glargine [Lantus Solostar U-100 Insulin] 100 unit/mL (3 mL) insulin pen 15 unit subcut .Daily Patient Comments: 15 units daily carbidopa-levodopa 50-200 mg tablet extended release 1 tab PO QHS gabapentin 600 mg tablet 600 mg PO TID (DME) blood-glucose meter [OneTouch Verio Flex meter] Misc MISCELLANEOUS UD (DME) OneTouch Verio test strips Strip MISCELLANEOUS TID (DME) lancets [OneTouch Delica Plus Lancet] 33 [place] [facility] [place]ISCELLANEOUS TID ipratropium-albuterol 0.5 mg-3 mg(2.5 mg base)/3 mL solution for nebulization 3 ml INHALATION Q6H Qty: 180 11RF lidocaine-prilocaine 2.5-2.5 % cream 1 applic topical DAILY PRN PRN (Reason: port access) 30 Days Qty: 1 2RF Discontinued cefazolin 2 gram recon soln 2 g IV Q8H 10 Days Rx Instructions: stop date 10/20/24. Dx: mssa bacteremia. weekly bmp, cbc; fax to [phone]. Routine midline care per protocol. Referrals / Follow Up: Jaswant Palomo DO [Med Staff - Active Staff] - Ruben Angela TRAIN DRIVER, TRAIN DRIVER-C [Primary Care Provider] - Disposition Disposition (needs filled in before D/C Order can be placed): Home Health Service Charges/Coding Visit Charges Inpatient E&M: 09473 Disch Hosp >30min
--- NOTE | 2024-11-24 16:21 | CASEMGMT ---
RN BONNIE updated by hospitalist that patient will be discharging today. RN BONNIE updated [facility], start of care planned for tomorrow. RN CM in to discuss needs at discharge. RN CM updated patient that HHC will be out tomorrow. Patient and deny further needs or concerns at discharge. Patient had no further questions or concerns.
[2024-11-24] MEDS: Insulin Lispro 100 UNIT/ML INSULN.PEN SC (16:36)
[2024-11-24] MEDS: Carbidopa/Levodopa 25/100 Tablet PO (16:38)
[2024-11-24 18:20] LABS: Bedside Glucose 212 mg/dL (74-106)
== END 2024-11-24 17:39 | disposition home health service (06) | DRG 378 ==
LOC: ED 18:57 → PCU 19:21
PROVIDERS: Family Medicine; Internal Medicine Gastroenterology; Nurse Practitioner; Admitting Provider Internal Medicine; Emergency Provider Emergency Medicine; PCP Nurse Practitioner Family; Visit Provider Hospitalist
PROC: 0DJD8ZZ Inspection of Lower Intestinal Tract, Via Natural or Artificial Opening Endoscopic (ICD-10-PCS; CPT 45378; principal; 2024-11-24 12:25)
DX: K92.2 Gastrointestinal hemorrhage, unspecified (principal); N30.00 Acute cystitis without hematuria; D62 Acute posthemorrhagic anemia; E11.22 Type 2 diabetes mellitus with diabetic chronic kidney disease; G20.C Parkinsonism, unspecified; N18.31 Chronic kidney disease, stage 3a; J44.9 Chronic obstructive pulmonary disease, unspecified; I12.9 Hypertensive chronic kidney disease with stage 1 through stage 4 chronic kidney disease, or unspecified chronic kidney disease; F32.A Depression, unspecified; E66.9 Obesity, unspecified; F17.200 Nicotine dependence, unspecified, uncomplicated; I25.10 Atherosclerotic heart disease of native coronary artery without angina pectoris; E11.40 Type 2 diabetes mellitus with diabetic neuropathy, unspecified; G47.33 Obstructive sleep apnea (adult) (pediatric); M47.816 Spondylosis without myelopathy or radiculopathy, lumbar region; E78.5 Hyperlipidemia, unspecified; F41.9 Anxiety disorder, unspecified; K63.5 Polyp of colon; K64.4 Residual hemorrhoidal skin tags; I25.2 Old myocardial infarction; K64.2 Third degree hemorrhoids; Z68.35 Body mass index [BMI] 35.0-35.9, adult; M51.360 Other intervertebral disc degeneration, lumbar region with discogenic back pain only; Z79.84 Long term (current) use of oral hypoglycemic drugs; Z79.899 Other long term (current) drug therapy; Z95.1 Presence of aortocoronary bypass graft
CPT/HCPCS: 36415; 70450; 71045; 80053; 81001; 82274; 82607; 82728; 82746; 82962; 83036; 83540; 83550; 83690; 83735; 84100; 84443; 84484; 85014; 85018; 85025; 86850; 86900; 86901; 87077; 87086; 87088; 87184; 87186; 88305; 93005; 94640; 94668; 97116; 97162; 97166; 97530; 97535; 99285; A4216; J2405

== ENCOUNTER 2024-11-28 11:23 | Day surgery (SDC) | payer MEDICARE, SELFPAY ==
[2024-11-28] VITALS (11 sets, daily range): BP systolic 102–160; BP diastolic 50–145; PULSE 54–89; RESP 16–18; TEMP 35.9–36.6; O2SAT 96–99; BMI 36.9
--- NOTE | 2024-11-28 13:37 | ED.VIS.GI ---
HPI HPI - GI History of Present Illness Chief Complaint: GI Bleed Informant: patient and spouse/S.O. Narrative Narrative: 84-year-old male presenting with his who states they were seen for outpatient follow-up today at GI office and they were told to come back to the ER. They state he has continued to have rectal bleeding. He has been having this for about a month, he was admitted to the hospital last week and had colonoscopy that saw some polyps and internal and external hemorrhoids, his bleeding had temporarily stopped and now for the past 3 days he has been having bleeding once per day, with bowel movements, sometimes just blood, maybe half a cup at the most. No melena, abdominal pain, presyncope or syncope, nausea or vomiting. He feels weak but states no more so than when he was in the hospital. Takes no antiplatelet or anticoagulant medications. [facility] Medical History DDD (degenerative disc disease) Lumbar spondylosis MSSA bacteremia Acute hyperglycemia COPD (chronic obstructive pulmonary disease) Blood bacterial culture positive Arthritis of sacroiliac joint Candidal dermatitis Candidiasis Sleep apnea Kidney disease Smoker H/O cardiovascular stress test History of left heart catheterization (~02/24/10) Cardiology follow-up encounter Port-A-Cath in place (~01/24/21) History of blood transfusion bladder instill antica agent Low back pain Primary hypertension Emphysema, unspecified Congenital stenosis and stricture of esophagus Cardiac murmur, unspecified Atherosclerotic heart disease Anemia Acute kidney failure, unspecified Gross hematuria BPH with obstruction/lower urinary tract symptoms Bladder cancer Nicotine dependence, cigarettes, uncomplicated JOHN (obstructive sleep apnea) COPD (chronic obstructive pulmonary disease) Acute [place], inferior wall CKD stage 3 Diabetes mellitus Hyperlipidemia Pulmonary HTN CAD (coronary artery disease) Diabetic neuropathy Mitral valve regurgitation Tricuspid valve regurgitation B12 deficiency Parkinson disease Pneumonia Tobacco use disorder, continuous Obesity Home Medications ?Medication ?Instructions ?Recorded ?Last Taken ?Type duloxetine 60 mg capsule,delayed 60 mg PO BID DEPRESSION 03/12/18 11/28/24 History release omega-3 fatty acids 1,000 mg 1,000 mg PO QDAY SUPPLEMENT 03/12/18 Unknown History capsule fenofibrate 160 mg tablet 160 mg PO DAILY CHOLESTEROL 01/14/21 11/27/24 History glimepiride 4 mg tablet 4 mg PO DAILY DIABETIC 01/14/21 11/28/24 History pioglitazone 45 mg tablet (Actos) 45 mg PO DAILY DIABETES 01/14/21 Unknown History primidone 250 mg tablet 250 mg PO TID PARKINSONS 01/14/21 11/28/24 History simvastatin 40 mg tablet 40 mg PO QHS CHOLESTEROL 01/14/21 11/27/24 History hydrocodone-acetaminophen 5-325mg 1 tab PO Q6H PRN Pain 03/23/21 Unknown History 5mg-325mg ipratropium 0.5 mg-albuterol 3 mg 3 ml inhalation Q6H COPD J44.9 07/03/22 Unknown Rx (2.5 mg base)/3 mL nebulization #180 mL soln lidocaine-prilocaine 2.5 %-2.5 % 1 applic topical DAILY PRN PRN 08/10/23 Unknown Rx topical cream port access 30 days #1 tube carbidopa 25 mg-levodopa 100 mg 1 tab PO BID PARKINSON'S 10/31/23 11/28/24 History tablet losartan 25 mg tablet 25 mg PO QDAY HTN 04/01/24 11/28/24 History insulin glargine 100 unit/mL (3 15 unit subcut .Daily Diabetes 10/05/24 Unknown History mL) subcutaneous pen (Lantus Solostar U-100 Insulin) budesonide 160 mcg-glycopyr 9 2 inh inhalation BID WHEEZING 10/16/24 11/28/24 Rx mcg-formot 4.8 mcg/actuation HFA #10.7 grams inhaler (Breztri Aerosphere) [facility] 11/[facility]/24 Unknown History Verio test strips) blood-glucose meter (OneTouch 11/21/24 Unknown History Verio Flex Meter) carbidopa ER 50 mg-levodopa 200 mg 1 tab PO QHS PARKINSON'S 11/21/24 11/27/24 History tablet,extended release gabapentin 600 mg tablet 600 mg PO TID NEUROPATHY 11/21/24 11/28/24 History lancets 33 gauge (OneTouch Delica 11/21/24 Unknown History Plus Lancet) Allergy/AdvReac Type Severity Reaction Status Date / Time cefepime Allergy Severe Anaphylaxis Verified 11/28/24 15:34 cefazolin Allergy Intermediate Hives Verified 11/28/24 15:34 Family History Mother Ovarian cancer Father Heart disease Brother Leukemia Surgical History Status post radical cystoprostatectomy Hx of transurethral resection of prostate (~01/05/21) History of quadruple bypass History of hand surgery History of ankle surgery Hx of cystoscopy S/P TURP Previous back surgery S/P CABG x 4 Social History current occupational status: retired Smoking Status: Light Smoker (<10/day) alcohol intake: never substance use type: does not use caffeine: Yes Type: coffee Number of servings: 1 eating out: rarely or never ROS ROS ED Constitutional Constitutional ED: Reports weakness; Denies chills or fever(s) Eyes Eyes: Denies change in vision or diplopia ENT ENT ED: Denies rhinorrhea or sore throat Cardiovascular Cardiovascular: Denies chest pain, lightheadedness, palpitations or syncope Respiratory/Chest Respiratory/Chest: Denies cough or dyspnea Gastrointestinal Gastrointestinal: Reports hematochezia; Denies abdominal pain, diarrhea, hematemesis, melena, nausea or vomiting Genitourinary Genitourinary ED: Denies dysuria or hematuria Musculoskeletal Musculoskeletal: Denies back pain or neck pain Integumentary Denies abscess or rash Neurologic Neurologic: Denies headache(s), paresthesias or weakness Psychiatric Psychiatric: Denies anxiety or suicidal thoughts EXAM Physical Exam Const Vital Signs: 11/28/24 11:24 11/28/24 13:23 11/28/24 15:00 Temperature 97.9 F Temperature Source Oral Pulse Rate 89 84 54 L Respiratory Rate 18 18 16 Blood Pressure 107/51 L 110/50 L 134/62 H Blood Pressure Mean 69 70 86 Pulse Ox 97 96 99 Oxygen Delivery Method Room Air Room Air Room Air 11/28/24 15:50 Temperature 97.9 F Temperature Source Pulse Rate 54 L Respiratory Rate 16 Blood Pressure 134/62 H Blood Pressure Mean 86 Pulse Ox 99 Oxygen Delivery Method Positive well nourished and well developed General Appearance ED: well developed and NAD HEENT Reports moist mucous membranes normocephalic and atraumatic Eyes PERRL and EOMs intact bilaterally Neck full ROM and supple Resp normal respiratory effort and clear to auscultation bilaterally Cardio regular rate, regular rhythm and no murmurs GI non-tender and non-distended Auscultation: normoactive bowel sounds Palpation: soft Back/Spine no CVA tenderness General Back: other FROM Extremity normal to inspection General Extremety ED: Negative for edema, pulses abnormal or tenderness General Extremity: Negative for edema or pulses abnormal Neuro oriented x3, CN's II-XII intact bilaterally and no sensory deficits noted Sensorium / Orientation: awake and alert Motor Exam: strength 5/5 throughout Skin no rashes or lesions noted and no wounds MDM MDM MDM Narrative Medical decision making narrative: Patient apparently had blood loss anemia, with a hemoglobin of 9.7 which is why he was admitted recently, and yesterday he had a hemoglobin outpatient 8.9. Today, 8.4. His vital signs are normal. Discussed with Dr. Palomo, he is planning on banding him today and asks for a soapsuds enema to help prep and to maintain n.p.o. status. I sent a type and screen but I do not think he needs an emergent blood transfusion at this time although I discussed the possibility with the patient and his . Patient went to endoscopy for procedure prior to discussing with hospitalist. GI recommending patient be admitted overnight for monitoring given the blood loss anemia. Plan to discuss with hospitalist after patient returns. History & Record Review Additional record(s) reviewed:: Prior inpatient record (Colonoscopy results) and Prior outpatient record (GI clinic visit today) Lab Data Attestation: I reviewed the patient's lab results. Labs: Laboratory Results - last 24 hr 11/28/24 13:40 WBC 5.8 RBC 2.61 L Hgb 8.4 L Hct 26.4 L MCV 101.1 H MCH 32.2 H MCHC 31.8 L RDW Std Deviation 59.0 H RDW Coeff of Yara 15.9 H Plt Count 205 MPV 9.7 Immature Gran % (Auto) 0.300 Neut % (Auto) 53.8 Lymph % (Auto) 35.1 [place] % (Auto) 8.9 Eos % (Auto) 1.4 Baso % (Auto) 0.5 Absolute Neuts (auto) 3.1 Absolute Lymphs (auto) 2.02 Nucleated RBC % 0 Sodium 136 Potassium 4.3 Chloride 105 Carbon Dioxide 27.0 Anion Gap 3 L BUN 14 Creatinine 1.11 Estim Creat Clear Calc 61.78 Est GFR (MDRD) Af Amer 81 Est GFR (MDRD) Non-Af 67 BUN/Creatinine Ratio 12.6 Glucose 165 H Calcium 8.5 Management Discussion w/another healthcare provider: Hospitalist and [employer] Tile Partition Erector (GI friend) Discharge Plan Dx/Rx/DC Orders Clinical Impression: ABLA (acute blood loss anemia), Bleeding grade III hemorrhoids Disposition Disposition: Acute Care Hospital [facility] Discharge Date/Time: 11/28/24 15:51
[2024-11-28 13:50] LABS: Absolute Lymphocyte Count 2.02 X10^3/uL (0.83-4.51); Absolute Neutrophil Count 3.1 X10^3/uL (2.0-7.7); Basophil# 0.03 X10^3/uL; Basophil% 0.5 % (0-1); Eosinophil# 0.08 X10^3/uL; Eosinophils% 1.4 % (0-5); Hematocrit 26.4 % (40-54); Hemoglobin 8.4 g/dL (13.0-16.5); Lymphocyte # 2.02 X10^3/ul (0.83-4.51); Lymphocyte % 35.1 % (19-41); Mean Corp Hgb Conc 31.8 g/dL (32-36); Mean Corpuscular Hgb 32.2 pg (27.0-32.0); Mean Corpuscular Volume 101.1 fL (80-94); Mean Platelet Vol. 9.7 fl (6.2-12.0); Monocyte# 0.51 X10^3/uL; Monocyte% 8.9 % (0-10); NRBC Flagged by Analyzer 0 % (0-5); Neutrophil % 53.8 % (47-70); Platelet Count 205 K/mm3 (150-450); RBC Distribution Width CV 15.9 % (11.6-14.6); Red Blood Count 2.61 M/mm3 (4.6-6.2); White Blood Count 5.8 K/mm3 (4.4-11.0)
[2024-11-28 14:41] LABS: Anion Gap 3 (5-15); BUN 14 mg/dL (7-18); BUN/Creat Ratio 12.6 RATIO (10-20); Calcium,Total 8.5 mg/dL (8.5-10.1); Chloride 105 mmol/L (98-107); Creatinine, Serum 1.11 mg/dL (0.70-1.30); EST Glomerular Filtration Rate 67 mL/min (>60); Est Glom Filt Rate - Afr Amer 81 mL/min (>60); Estimated Creatinine Clearance 61.78 ml/min; Glucose 165 mg/dL (74-106); Potassium 4.3 mmol/L (3.5-5.1); Sodium Level 136 mmol/L (136-145)
--- NOTE | 2024-11-28 16:20 | PCM.PRE.AN2 ---
ASA Classification* ASA Classification ASA Classification: 3 Assessment & Plan Anesthesia* Anesthesia Assessment Anesthesia Assessment: Discussed sedation and/or anesthesia options, risks, benefits, and alternatives with patient/parents/legal guardian/POA. Questions invited. The patient/parents/legal guardian/POA seems to understand and agrees to proceed with anesthesia plan. Reviewed the physical assessment, medical history, allergy history and patient home medications list prior to surgery/procedure/anesthetic and documented any changes. Performed airway and anesthesia risk assessments. Anesthesia Type Anesthesia Type: MAC History Source History Obtained from:: Patient and Chart Anesthesia Focused Assessment* Temperature: 97.9 F Pulse Rate: 54 Blood Pressure: 134/62 Respiratory Rate: 16 Pulse Ox: 99 Oxygen Delivery Method: Room Air Airway Assessment Mouth opens: >3 cm Mallampati Score: III Teeth Condition: Missing (Several missing teeth on the bottom. Edentulous on top. Remaining teeth are tight.) Neck Range of motion (ROM): Limited ROM (Somewhat decreased extension) Focused Labs Anesthesia Preop lab: CBC WBC 5.8 K/mm3 (4.4-11.0) 11/28/24 13:40 RBC 2.61 M/mm3 (4.6-6.2) L 11/28/24 13:40 Hgb 8.4 g/dL (13.0-16.5) L 11/28/24 13:40 Hct 26.4 % (40-54) L 11/28/24 13:40 Plt Count 205 K/mm3 (150-450) 11/28/24 13:40 CHEMISTRY Potassium 4.3 mmol/L (3.5-5.1) 11/28/24 13:40 Sodium 136 mmol/L (136-145) 11/28/24 13:40 Magnesium 2.0 mg/dL (1.6-2.6) 11/23/24 05:21 Phosphorus 2.8 mg/dL (2.5-4.9) 11/23/24 05:21 BUN 14 mg/dL (7-18) 11/28/24 13:40 Creatinine 1.11 mg/dL (0.70-1.30) 11/28/24 13:40 Glucose 165 mg/dL (74-106) H 11/28/24 13:40 POC Glucose 212 mg/dL (74-106) H 11/24/24 16:32 TSH 3.280 uIU/mL (0.358-3.740) 11/21/24 17:22 COAG PT 15.5 SECONDS (11.7-14.9) H 10/03/24 13:30 Pre-Assessment Diagnosis/Proposed Procedure Planned Operative Procedure(s): Sigmoidoscopy with hemorrhoid banding Anesthesia History 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 SURGERY 05/03/21 08:43 Any Problems With Anesthesia No 11/24/24 07:31 Cholinesterase deficiency No 11/24/24 07:31 You/Your Family Experience No 11/24/24 07:31 fever (hyperthermia) with Relationship Recent Exposure to Contagious No 11/24/24 07:31 Disease Does patient have nerve No 11/24/24 07:31 stimulator Patient instructed to have device shut off --Does patient have Pacemaker or ICD? When Was Last Pacemaker Check QUESTION #4 FULL TEXT: You/Your Family Experience fever (hyperthermia) with Anesthesia Last Oral Intake Last Oral intake: Last Oral Intake NPO since Meds taken in AM with sips of water? 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 Female HX of Motion Sickness HX of N/V After Surgery Non-Smoker Duration of Surgery greater than 60 minutes Number of Risk Factors PONV Score Height & Weight Height & Weight: Anesthesia: Height & Weight Height 5 ft 8 in 11/28/24 11:24 Weight: 110.223 kg 11/28/24 11:24 Body Mass Index (BMI) 36.9 11/28/24 11:24 Respiratory Assessment Respiratory Assessment - corrections unit supervisor: Respiratory Tract Infection Hx - corrections unit supervisor Hx Respiratory Tract Infection No 11/24/24 07:31 STOP Sleep Apnea STOP Sleep Apnea - corrections unit supervisor: STOP Sleep Apnea - corrections unit supervisor Hx Hypertension No 11/22/24 15:49 Hx Sleep Apnea Yes 11/24/24 13:42 CPAP Yes 11/21/24 20:20 BIPAP No 11/21/24 20:20 Do you snore loudly (louder than talking or can be heard Do you often feel tired/ fatigued/ sleepy during daytime? Has anyone observed you stop breathing during sleep? STOP Results QUESTION #5 FULL TEXT : Do you snore loudly (louder than talking or can be heard through closed doors)? 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 Specify any problems Hx of Preganancy in last 3 Months Nurse Filling Out Transfusion & Questions: Date: Time: Patient unable to answer at this time (ie. 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 supervisor Hx Now Gestational Age (in weeks): EDC: Hx Hx Para Hx Section SAB No 11/24/24 07:31 [facility] Medical History DDD (degenerative disc disease) Lumbar spondylosis MSSA bacteremia Acute hyperglycemia COPD (chronic obstructive pulmonary disease) Blood bacterial culture positive Arthritis of sacroiliac joint Candidal dermatitis Candidiasis Sleep apnea Kidney disease Smoker H/O cardiovascular stress test History of left heart catheterization (~02/24/10) Cardiology follow-up encounter Port-A-Cath in place (~01/24/21) History of blood transfusion bladder instill antica agent Low back pain Primary hypertension Emphysema, unspecified Congenital stenosis and stricture of esophagus Cardiac murmur, unspecified Atherosclerotic heart disease Anemia Acute kidney failure, unspecified Gross hematuria BPH with obstruction/lower urinary tract symptoms Bladder cancer Nicotine dependence, cigarettes, uncomplicated JOHN (obstructive sleep apnea) COPD (chronic obstructive pulmonary disease) Acute [place], inferior wall CKD stage 3 Diabetes mellitus Hyperlipidemia Pulmonary HTN CAD (coronary artery disease) Diabetic neuropathy Mitral valve regurgitation Tricuspid valve regurgitation B12 deficiency Parkinson disease Pneumonia Tobacco use disorder, continuous Obesity Home Medications ?Medication ?Instructions ?Recorded ?Last Taken ?Type duloxetine 60 mg capsule,delayed 60 mg PO BID DEPRESSION 03/12/18 11/28/24 History release omega-3 fatty acids 1,000 mg 1,000 mg PO QDAY SUPPLEMENT 03/12/18 Unknown History capsule fenofibrate 160 mg tablet 160 mg PO DAILY CHOLESTEROL 01/14/21 11/27/24 History glimepiride 4 mg tablet 4 mg PO DAILY DIABETIC 01/14/21 11/28/24 History pioglitazone 45 mg tablet (Actos) 45 mg PO DAILY DIABETES 01/14/21 Unknown History primidone 250 mg tablet 250 mg PO TID PARKINSONS 01/14/21 11/28/24 History simvastatin 40 mg tablet 40 mg PO QHS CHOLESTEROL 01/14/21 11/27/24 History hydrocodone-acetaminophen 5-325mg 1 tab PO Q6H PRN Pain 03/23/21 Unknown History 5mg-325mg ipratropium 0.5 mg-albuterol 3 mg 3 ml inhalation Q6H COPD J44.9 07/03/22 Unknown Rx (2.5 mg base)/3 mL nebulization #180 mL soln lidocaine-prilocaine 2.5 %-2.5 % 1 applic topical DAILY PRN PRN 08/10/23 Unknown Rx topical cream port access 30 days #1 tube carbidopa 25 mg-levodopa 100 mg 1 tab PO BID PARKINSON'S 10/31/23 11/28/24 History tablet losartan 25 mg tablet 25 mg PO QDAY HTN 04/01/24 11/28/24 History insulin glargine 100 unit/mL (3 15 unit subcut .Daily Diabetes 10/05/24 Unknown History mL) subcutaneous pen (Lantus Solostar U-100 Insulin) budesonide 160 mcg-glycopyr 9 2 inh inhalation BID WHEEZING 10/16/24 11/28/24 Rx mcg-formot 4.8 mcg/actuation HFA #10.7 grams inhaler (ViRTUAL INTERACTiVE) blood sugar diagnostic (OneTouch 11/21/24 Unknown History Verio test strips) blood-glucose meter (OneTouch 11/21/24 Unknown History Verio Flex Meter) carbidopa ER 50 mg-levodopa 200 mg 1 tab PO QHS PARKINSON'S 12/27/24 01/02/25 History tablet,extended release gabapentin 600 mg tablet 600 mg PO TID NEUROPATHY 11/21/24 11/28/24 History lancets 33 gauge (OneTouch Delica 11/21/24 Unknown History Plus Lancet) Allergy/AdvReac Type Severity Reaction Status Date / Time cefepime Allergy Severe Anaphylaxis Verified 11/28/24 15:34 cefazolin Allergy Intermediate Hives Verified 11/28/24 15:34 Family History Mother Ovarian cancer Father Heart disease Brother Leukemia Surgical History Status post radical cystoprostatectomy Hx of transurethral resection of prostate (~01/05/21) History of quadruple bypass History of hand surgery History of ankle surgery Hx of cystoscopy S/P TURP Previous back surgery S/P CABG x 4 Social History current occupational status: retired Smoking Status: Light Smoker (<10/day) alcohol intake: never substance use type: does not use caffeine: Yes Type: coffee Number of servings: 1 eating out: rarely or never Review of Systems (Anesthesia) ROS Narrative System reviewed and no additional complaints, except as documented.
--- NOTE | 2024-11-28 17:54 | PCM.HP.STD ---
[facility] - General General Date of Admission: 11/28/24 Date of Service: 11/28/24 Chief Complaint: GI bleed [facility] Narrative AKASH GREGORY, is a 84 M who recently presented [facility] ED on 11/21/2024 with intermittent bloody stools and dizziness with falls. Hospital course as noted below. Patient discharged home with home health care in stable condition on 11/24. He was diagnosed with lower GI bleed with mild acute blood loss anemia in setting of chronic anemia. He reported history of intermittent bloody stools for about 2-3 weeks prior to admission. Hemoglobin 9.1 on admit, down from baseline 11-12. Hemoglobin did remain stable around 9 during hospitalization with resolution of blood in stool. Colonoscopy on 11/24 showed nonbleeding large internal and external hemorrhoids as well as 2 small polyps that were removed. I suspected that hemorrhoids were the cause of his intermittent bleeding. He called the office today because he was having worsening lower GI bleeding. We sent him to the ER for evaluation and his hemoglobin was determined to be 8.4 which is down from 8.9. We are scheduling him for an emergent flexible sigmoidoscopy with treatment of lower GI bleeding likely secondary to hemorrhoids. [facility] Medical History DDD (degenerative disc disease) Lumbar spondylosis MSSA bacteremia Acute hyperglycemia COPD (chronic obstructive pulmonary disease) Blood bacterial culture positive Arthritis of sacroiliac joint Candidal dermatitis Candidiasis Sleep apnea Kidney disease Smoker H/O cardiovascular stress test History of left heart catheterization (~02/24/10) Cardiology follow-up encounter Port-A-Cath in place (~01/24/21) History of blood transfusion bladder instill antica agent Low back pain Primary hypertension Emphysema, unspecified Congenital stenosis and stricture of esophagus Cardiac murmur, unspecified Atherosclerotic heart disease Anemia Acute kidney failure, unspecified Gross hematuria BPH with obstruction/lower urinary tract symptoms Bladder cancer Nicotine dependence, cigarettes, uncomplicated JOHN (obstructive sleep apnea) COPD (chronic obstructive pulmonary disease) Acute [place], inferior wall CKD stage 3 Diabetes mellitus Hyperlipidemia Pulmonary HTN CAD (coronary artery disease) Diabetic neuropathy Mitral valve regurgitation Tricuspid valve regurgitation B12 deficiency Parkinson disease Pneumonia Tobacco use disorder, continuous Obesity Home Medications ?Medication ?Instructions ?Recorded ?Last Taken ?Type duloxetine 60 mg capsule,delayed 60 mg PO BID DEPRESSION 03/12/18 11/28/24 History release omega-3 fatty acids 1,000 mg 1,000 mg PO QDAY SUPPLEMENT 03/12/18 Unknown History capsule fenofibrate 160 mg tablet 160 mg PO DAILY CHOLESTEROL 01/14/21 11/27/24 History glimepiride 4 mg tablet 4 mg PO DAILY DIABETIC 01/14/21 11/28/24 History pioglitazone 45 mg tablet (Actos) 45 mg PO DAILY DIABETES 01/14/21 Unknown History primidone 250 mg tablet 250 mg PO TID PARKINSONS 01/14/21 11/28/24 History simvastatin 40 mg tablet 40 mg PO QHS CHOLESTEROL 01/14/21 11/27/24 History hydrocodone-acetaminophen 5-325mg 1 tab PO Q6H PRN Pain 03/23/21 Unknown History 5mg-325mg ipratropium 0.5 mg-albuterol 3 mg 3 ml inhalation Q6H COPD J44.9 07/03/22 Unknown Rx (2.5 mg base)/3 mL nebulization #180 mL soln lidocaine-prilocaine 2.5 %-2.5 % 1 applic topical DAILY PRN PRN 08/10/23 Unknown Rx topical cream port access 30 days #1 tube carbidopa 25 mg-levodopa 100 mg 1 tab PO BID PARKINSON'S 10/31/23 11/28/24 History tablet losartan 25 mg tablet 25 mg PO QDAY HTN 04/01/24 11/28/24 History insulin glargine 100 unit/mL (3 15 unit subcut .Daily Diabetes 10/05/24 Unknown History mL) subcutaneous pen (Lantus Solostar U-100 Insulin) budesonide 160 mcg-glycopyr 9 2 inh inhalation BID WHEEZING 10/16/24 11/28/24 Rx mcg-formot 4.8 mcg/actuation HFA #10.7 grams inhaler (Doorbotztri intelloCutphere) [facility] 11/21/24 Unknown History Verio test strips) blood[facility]glucose [facility] 11/21/24 Unknown History Verio Flex Meter) carbidopa ER 50 mg-levodopa 200 mg 1 tab PO QHS PARKINSON'S 11/21/24 11/27/24 History tablet,extended release gabapentin 600 mg tablet 600 mg PO TID NEUROPATHY 11/21/24 11/28/24 History lancets 33 gauge (OneTouch Delica 11/21/24 Unknown History Plus Lancet) Allergy/AdvReac Type Severity Reaction Status Date / Time cefepime Allergy Severe Anaphylaxis Verified 11/28/24 15:34 cefazolin Allergy Intermediate Hives Verified 11/28/24 15:34 Family History Mother Ovarian cancer Father Heart disease Brother Leukemia Surgical History Status post radical cystoprostatectomy Hx of transurethral resection of prostate (~01/05/21) History of quadruple bypass History of hand surgery History of ankle surgery Hx of cystoscopy S/P TURP Previous back surgery S/P CABG x 4 Social History current occupational status: retired Smoking Status: Light Smoker (<10/day) alcohol intake: never substance use type: does not use caffeine: Yes Type: coffee Number of servings: 1 eating out: rarely or never ROS ROS Narrative Review of Systems: Constitutional: Patient admits to generalized weakness but he denies fever or chills. Eyes: Patient denies changes in vision or discharge from eyes. ENT: Patient denies runny nose, sore throat or ear pain. Resp: Patient denies shortness of breath or cough. CV: Patient denies chest pain, palpitations or heart racing. GI: Patient admits to blood in stools daily but he denies abdominal pain, nausea, vomiting, diarrhea or constipation. : Patient denies dysuria or hematuria. MSK: Patient admits to generalized weakness and myalgias but he denies arthralgias. Skin: Patient denies rash, abscess or jaundice. Psych: Patient denies symptoms of uncontrolled depression or anxiety. Neuro: Patient admits to generalized weakness with dizziness but he denies headache, paresthesias or focal neurologic deficits. Allergy: Patient denies lip swelling, tongue swelling or urticaria. Hematology: Patient admits to daily bloody bowel movement for the past ~3 weeks as per HPI. Endocrinology: Patient denies polyuria, polydipsia or polyphagia. 14 point review of systems otherwise negative other than positives noted above in HPI. Vital Signs Vital Signs Vital Signs: 11/28/24 11:24 11/28/24 13:23 11/28/24 15:00 Temperature 97.9 F Temperature Source Oral Pulse Rate 89 84 54 L Respiratory Rate 18 18 16 Blood Pressure 107/51 L 110/50 L 134/62 H Blood Pressure Mean 69 70 86 Pulse Ox 97 96 99 Oxygen Delivery Method Room Air Room Air Room Air 11/28/24 15:50 11/28/24 16:28 Temperature 97.9 F 97.9 F Temperature Source Pulse Rate 54 L 54 L Respiratory Rate 16 16 Blood Pressure 134/62 H 134/62 H Blood Pressure Mean 86 Pulse Ox 99 99 Oxygen Delivery Method Room Air Weight Weight: 243 lb Body Mass Index (BMI) 36.9 Physical Exam Narrative Physical Examination: General: Awake, alert, oriented x 3 and cooperative, Skin: Normal color, normal turgor, no icterus, no cyanosis except occasional stage ecchymoses, abrasion. HEENT: AT/NC, EOMI, PERRLA, MMM. Lungs: Mildly diminished, greater bases, appropriate effort, no rales, ronchi or wheezing. Heart: Regular rate and rhythm; no gallop, rub audible. Abdomen: Soft, obese, NTTP, ND, right-sided urostomy in place with notable urine output, mildly hyperactive BS. Extremities: No cyanosis, no clubbing, mild trace ankle edema. Neurological: Patient awake, alert, oriented as noted cognitive function intact; pupils equally reactive to light and accommodation, cranial nerves grossly normal, moving all 4 extremities, strength improved, moderately globally decreased. Psychiatric: Affect appears more interactive, normal, no acute evidence of depressive or anxiety feelings but does have underlying history. Results Lab / Micro Data 11/28/24 13:40 11/28/24 13:40 Labs: Laboratory Results - last 24 hr 11/28/24 13:40: WBC 5.8, RBC 2.61 L, Hgb 8.4 L, Hct 26.4 L, MCV 101.1 H, MCH 32.2 H, MCHC 31.8 L, RDW Std Deviation 59.0 H, RDW Coeff of Yara 15.9 H, Plt Count 205, MPV 9.7, Immature Gran % (Auto) 0.300, Neut % (Auto) 53.8, Lymph % (Auto) 35.1, [place] % (Auto) 8.9, Eos % (Auto) 1.4, Baso % (Auto) 0.5, Absolute Neuts (auto) 3.1, Absolute Lymphs (auto) 2.02, Nucleated RBC % 0, Sodium 136, Potassium 4.3, Chloride 105, Carbon Dioxide 27.0, Anion Gap 3 L, BUN 14, Creatinine 1.11, Estim Creat Clear Calc 61.78, Est GFR (MDRD) Af Amer 81, Est GFR (MDRD) Non-Af 67, BUN/Creatinine Ratio 12.6, Glucose 165 H, Calcium 8.5 Assessment & Plan Assessment/Plan (1) LGI bleed: (2) Acute cystitis without hematuria: (3) Frequent falls: (4) Dizziness: (5) Osteoarthritis: QUALIFIERS: Osteoarthritis location: unspecified site Osteoarthritis type: unspecified Qualified Code(s): M19.90 - Unspecified osteoarthritis, unspecified site (6) Chronic back pain: QUALIFIERS: Back pain location: low back pain Back pain laterality: bilateral Sciatica presence: without sciatica Qualified Code(s): M54.50 - Low back pain, unspecified; G89.29 - Other chronic pain (7) DDD (degenerative disc disease): QUALIFIERS: Spinal region: lumbar Qualified Code(s): M51.36 - Other intervertebral disc degeneration, lumbar region (8) Lumbar spondylosis: (9) Obesity (BMI 30-39.9): PLAN: Plan This is a very pleasant 84-year-old gentleman who presents with LGIB with blood noted on rectal exam in the ER with a hemoglobin of 8.4 g/dL present on admission (down from his baseline of 11.3 g/dL on November 06, 2024). The differential diagnosis for his lower GI bleed would be diverticular bleed, lower GI bleed secondary to hemorrhoidal disease, angiodysplasia, neoplasia, upper GI bleed with rapid transit. He was explained alternatives, risk and benefits include not withstanding bleeding, infection, sepsis, perforation, need for more charge and . He will have an ASA of 3.
--- NOTE | 2024-11-28 18:31 | OP.CCLET_ITS ---
11/28/2024 Ruben Angela Re : Flexible Sigmoidoscopy procedure for Rick Cramer Dear Julio César This procedure was performed on Thursday, November 28, 2024. My impressions and recommendations are as follows: Impressions : - Preparation of the colon was fair. - Hemorrhoids found on perianal exam. - Bleeding external and internal hemorrhoids. Banded. - No specimens collected. Recommendations : - Use original regular Metamucil one teaspoon PO BID. My findings are described in the full procedure note, which is enclosed. If I can be of further assistance, please feel free to contact me at . Sincerely, Jaswant Palomo, DO 11/28/2024 6:30:48 PM This report has been signed electronically.
--- NOTE | 2024-11-28 18:31 | OP.FLEXSIG_ITS ---
Patient Name: Rick Cramer Procedure Date: 11/28/2024 5:58 PM Date of : 1940 Age: 84 Procedure: Flexible Sigmoidoscopy Indications: Hematochezia Providers: Jaswant Palomo DO Referring MD: Ap Navarro Medicines: See the Anesthesia note for documentation of the administered medications Patient Profile: This is an 84 year old male. Refer to note in patient chart for documentation of history and physical. Last Colonoscopy: within the past month. Complications: No immediate complications. Procedure: Pre-Anesthesia Assessment: - Prior to the procedure, a History and Physical was performed, and patient medications and allergies were reviewed. The patient is competent. The risks and benefits of the procedure and the sedation options and risks were discussed with the patient. All questions were answered and informed consent was obtained. Patient identification and proposed procedure were verified by the physician in the pre-procedure area. Mental Status Examination: alert and oriented. Airway Examination: normal oropharyngeal airway and neck mobility. Respiratory Examination: clear to auscultation. CV Examination: normal. Prophylactic Antibiotics: The patient does not require prophylactic antibiotics. Prior Anticoagulants: The patient has taken no anticoagulant or antiplatelet agents except for NSAID medication. ASA Grade Assessment: III - A patient with severe systemic disease. After reviewing the risks and benefits, the patient was deemed in satisfactory condition to undergo the procedure. The anesthesia plan was to use monitored anesthesia care (MAC). Immediately prior to administration of medications, the patient was re-assessed for adequacy to receive sedatives. The heart rate, respiratory rate, oxygen saturations, blood pressure, adequacy of pulmonary ventilation, and response to care were monitored throughout the procedure. The physical status of the patient was re-assessed after the procedure. After obtaining informed consent, the endoscope was passed under direct vision. Throughout the procedure, the patient's blood pressure, pulse, and oxygen saturations were monitored continuously. The Endoscope was introduced through the anus and advanced to the rectosigmoid junction. The flexible sigmoidoscopy was accomplished without difficulty. The patient tolerated the procedure well. The quality of the bowel preparation was fair. Scope In: 6:14:05 PM Scope Out: 6:26:12 PM Total Procedure Duration Time 0 hours 12 minutes 7 seconds Findings: Hemorrhoids were found on perianal exam. Bleeding external and internal hemorrhoids were found during retroflexion. The hemorrhoids were large and Grade III (internal hemorrhoids that prolapse but require manual reduction). A hemorrhoid was isolated with endoscopy. The NIA ligator was positioned over the hemorrhoid at the left lateral position. Suction was applied and one rubber band was placed over the hemorrhoid. This was checked to make certain that the muscularis was free of the band. Post-banding digital rectal exam showed band in good position. There were no complications. Impression: - Preparation of the colon was fair. - Hemorrhoids found on perianal exam. - Bleeding external and internal hemorrhoids. Banded. - No specimens collected. Recommendation: - Use original regular Metamucil one teaspoon PO BID. Procedure Code(s): --- Professional --- 17527, 52, Sigmoidoscopy, flexible; with band ligation(s) (eg, hemorrhoids) CPT copyright 2021 [employer]. All rights reserved. The codes documented in this report are preliminary and upon automotive parts salesperson review may be revised to meet current compliance requirements. Jaswant Palomo DO 11/28/2024 6:30:48 PM This report has been signed electronically. Number of Addenda: 0 Note Initiated On: 11/28/2024 5:58 PM
--- NOTE | 2024-11-28 18:39 | PCM.POST.ANE ---
Anesthesia: Postop Eval I Current Vital Signs Temperature: 98 F Pulse Rate: 58 Blood Pressure: 160/100 Respiratory Rate: 17 Pulse Ox: 98 Assessment Airway patent: Yes Spontaneous unlabored respirations: Yes nausea: No Vomiting: No Anesthesia Complication: No Fluid Hydration Crystalloid volume administer (ml): 10 Total IV fluid infused: 10 Progress Note Anesthesia document: Postop Eval 1 completed: Yes
--- NOTE | 2024-11-28 18:40 | POSTOPAN2_ITS ---
Anesthesia Postop Eval I Sum Postop Eval Completion status Anesthesia document: Postop Eval 1 completed: Yes Anesthesia Postop Eval I Summary Anesthesia Postop Eval I Summary: Anesthesia Postop Eval I: Assessment Summary Airway patent Yes 11/28/24 18:39 [facility] [email or web address] Spontaneous unlabored Yes 11/28/24 18:39 CLINIC [email or web address].[email or web address] respirations Mental status nausea No 11/28/24 18:39 CLINIC LPN.JCOTE Vomiting No 11/28/24 18:39 CLINIC [email or web address] Anesthesia Postop Eval I: Fluid Summary Crystalloid volume administer 10 11/28/24 18:39 CLINIC [email or web address].[email or web address] (ml) Colloids volume administered ( ml) Blood Product volume administered (ml) Total IV fluid infused 10 11/28/24 18:39 CLINIC [email or web address] Anesthesia Postop Eval I: Summary Notes Anesthesia Complication No 11/28/24 18:39 CLINIC [email or web address].JCOTE Anesthesia Complication Comment: Post-operative progress note Anesthesia: Postop Eval II Evaluation Mental status: Awake Pain Level: 0 nausea: No Vomiting: No
--- NOTE | 2024-11-28 18:40 | PCM.POSTANE2 ---
Anesthesia Postop Eval I Sum Postop Eval Completion status Anesthesia document: Postop Eval 1 completed: Yes Anesthesia Postop Eval I Summary Anesthesia Postop Eval I Summary: Anesthesia Postop Eval I: Assessment Summary Airway patent Yes 11/28/24 18:39 [email or web address] Spontaneous unlabored Yes 11/28/24 18:39 [email or web address].[email or web address] respirations Mental status nausea No 11/28/24 18:39 [email or web address].JCOTE Vomiting No 11/28/24 18:39 [email or web address].[email or web address] Anesthesia Postop Eval I: Fluid Summary Crystalloid volume administer 10 11/28/24 18:39 [facility] [email or web address] (ml) Colloids volume administered ( ml) Blood Product volume administered (ml) Total IV fluid infused 10 11/28/24 18:39 [facility] [email or web address].JCOTE Anesthesia Postop Eval I: Summary Notes Anesthesia Complication No 11/28/24 18:39 [facility] [email or web address].JCOTE Anesthesia Complication Comment: Post-operative progress note Anesthesia: Postop Eval II Evaluation Mental status: Awake Pain Level: 0 nausea: No Vomiting: No
== END 2024-11-28 19:09 | disposition home or self-care (01) ==
LOC: ED 15:02 → SDC 15:24 → AC 15:26
PROVIDERS: Emergency Provider Emergency Medicine; PCP Nurse Practitioner Family; Referring Provider Emergency Medicine; Visit Provider Internal Medicine Gastroenterology
PROC: 0DJD8ZZ Inspection of Lower Intestinal Tract, Via Natural or Artificial Opening Endoscopic (ICD-10-PCS; CPT 45330; principal; 2024-11-28 16:55)
DX: K64.2 Third degree hemorrhoids (principal); G20.A1 Parkinson's disease without dyskinesia, without mention of fluctuations; J44.9 Chronic obstructive pulmonary disease, unspecified; E11.22 Type 2 diabetes mellitus with diabetic chronic kidney disease; E11.40 Type 2 diabetes mellitus with diabetic neuropathy, unspecified; Z79.4 Long term (current) use of insulin; N18.30 Chronic kidney disease, stage 3 unspecified; D62 Acute posthemorrhagic anemia; I25.10 Atherosclerotic heart disease of native coronary artery without angina pectoris; E78.5 Hyperlipidemia, unspecified; I12.9 Hypertensive chronic kidney disease with stage 1 through stage 4 chronic kidney disease, or unspecified chronic kidney disease; F17.200 Nicotine dependence, unspecified, uncomplicated; M51.369 Other intervertebral disc degeneration, lumbar region without mention of lumbar back pain or lower extremity pain; M47.816 Spondylosis without myelopathy or radiculopathy, lumbar region; G89.29 Other chronic pain; E66.9 Obesity, unspecified; R29.6 Repeated falls; Z68.36 Body mass index [BMI] 36.0-36.9, adult; Z95.1 Presence of aortocoronary bypass graft; Z79.51 Long term (current) use of inhaled steroids; Z79.84 Long term (current) use of oral hypoglycemic drugs; Z79.899 Other long term (current) drug therapy
CPT/HCPCS: 45350; 80048; 85025; 99285; A4216; J2405

== ENCOUNTER → 2024-12-08 | Outpatient (CLI) | payer MEDICARE, SELFPAY ==
--- NOTE | 2024-12-08 10:25 | RAD_ITS ---
STUDY: X-RAY - RIGHT FOOT CLINICAL: Male, 84 years old. Fall. TECHNIQUE: 3 views of the right foot. COMPARISON: None. FINDINGS: Intact talus, calcaneus, and tarsal bones. There is an osseous spur of the posterior calcaneal tuberosity at the distal insertion of the Achilles tendon. Normal visualized subtalar, talonavicular, calcaneocuboid, tarsal and tarsometatarsal articulations. There is a 4 mm smooth ossific fragment adjacent to the base of the fifth metatarsal, probably the sequelae of an old avulsion injury. Normal remainder of the metatarsi. Normal metatarsophalangeal joint of the great toe. Normal tibial and fibular sesamoid bones. Normal interphalangeal joint of the great toe. Normal phalanges of the great toe. Normal second through fifth metatarsophalangeal joints. Normal interphalangeal joints and phalanges of the lesser toes. The soft tissue structures are unremarkable. RAD/Foot min 3 Views IMPRESSION: 4 mm smooth ossific fragment adjacent to the base of the fifth metatarsal, probably the sequelae of an old avulsion injury. Osseous spur of the posterior calcaneal tuberosity at the distal insertion of the Achilles tendon. Electronically Signed: Wilbert Perez MD at 10:55 EST ,
--- NOTE | 2024-12-08 10:30 | RAD_ITS ---
STUDY: X-RAY - RIGHT ANKLE REASON FOR EXAM: Male, 84 years old. Fall. TECHNIQUE: 3 views of the right ankle. COMPARISON: None. FINDINGS: There is a nondisplaced oblique fracture of the distal fibula. Normal visualized distal tibia. Normal medial malleolus. Normal tibiotalar articulation and ankle mortise. Intact visualized talus and calcaneus. There is an osseous spur of the posterior calcaneal tuberosity at the distal insertion of the Achilles tendon. The visualized subtalar, talonavicular, calcaneocuboid and tarsal articulations are normal. There is soft tissue swelling overlying the lateral malleolus. RAD/Ankle min 3 Views IMPRESSION: Nondisplaced oblique fracture of the distal fibula. Soft tissue swelling overlying the lateral malleolus. Osseous spur of the posterior calcaneal tuberosity at the distal insertion of the Achilles tendon. Electronically Signed: Wilbert Perez MD at 10:52 EST ,
== END | disposition home or self-care (01) ==
LOC: MTRAD 10:25
PROVIDERS: PCP Nurse Practitioner Family; Referring Provider Physician Assistant; Visit Provider Physician Assistant
DX: S82.434A Nondisplaced oblique fracture of shaft of right fibula, initial encounter for closed fracture (principal); W19.XXXA Unspecified fall, initial encounter
CPT/HCPCS: 73610; 73630

== ENCOUNTER 2024-12-16 12:54 | Outpatient (CLI) | payer MEDICARE, SELFPAY ==
[2024-12-16 13:53] LABS: Hematocrit 35.5 % (40-54); Hemoglobin 11.2 g/dL (13.0-16.5); Mean Corp Hgb Conc 31.5 g/dL (32-36); Mean Corpuscular Hgb 32.2 pg (27.0-32.0); Mean Platelet Vol. 9.8 fl (6.2-12.0); Platelet Count 346 K/mm3 (150-450); RBC Distribution Width CV 14.6 % (11.6-14.6); RBC Distribution Width SD 55.2 fl (35.1-43.9); Red Blood Count 3.48 M/mm3 (4.6-6.2)
[2024-12-16 14:06] LABS: ALB/GLOB Ratio 0.8 RATIO (0.9-2.4); AST(SGOT) 16 U/L (15-37); Alanine Aminotransfer ALT/SGPT 13 U/L (16-61); Albumin, Serum 3.4 g/dL (3.2-5.0); Alkaline Phosphatase 61 U/L (45-117); Anion Gap 4 (5-15); BUN 23 mg/dL (7-18); BUN/Creat Ratio 20.9 RATIO (10-20); Calcium,Total 9.3 mg/dL (8.5-10.1); Chloride 105 mmol/L (98-107); Cholesterol 151 mg/dL (200); EST Glomerular Filtration Rate 68 mL/min (>60); Est Glom Filt Rate - Afr Amer 82 mL/min (>60); Ferritin 116 ng/mL (26-388); Globulin 4.5 g/dL (2.2-4.2); Glucose 121 mg/dL (74-106); High Density Lipoprotein 47 mg/dL; Iron 83 ug/dL (65-175); Potassium 5.3 mmol/L (3.5-5.1); Protein, Total 7.9 g/dL (6.4-8.2); Sodium Level 136 mmol/L (136-145); Triglycerides 170 mg/dL; Very Low Density Lipoprotein 34 mg/dL (5-40)
[2024-12-16 14:07] LABS: PTHIN 29.3 pg/mL (18.4-80.1)
[2024-12-16 14:08] LABS: Vitamin D,25 Hydroxy 15.1 ng/mL
[2024-12-16 15:41] LABS: Hemoglobin A1c 6.8 % (3.8-5.6)
== END 2024-12-16 23:59 | disposition home or self-care (01) ==
LOC: LABSPEC 12:55
PROVIDERS: Internal Medicine Hematology & Oncology; PCP Nurse Practitioner Family; Referring Provider Nurse Practitioner Family; Visit Provider Nurse Practitioner Family
DX: C67.4 Malignant neoplasm of posterior wall of bladder (principal); C61 Malignant neoplasm of prostate; K92.2 Gastrointestinal hemorrhage, unspecified
CPT/HCPCS: 80053; 80061; 82306; 82728; 83036; 83540; 83970; 85027

== ENCOUNTER 2025-01-24 12:20 | Inpatient (IN) | payer MEDICARE, SELFPAY ==
[2025-01-24] VITALS (22 sets, daily range): BP systolic 117–140; BP diastolic 50–64; PULSE 52–97; RESP 15–22; TEMP 36.6–38.4; O2SAT 92–98; BMI 38.2
--- NOTE | 2025-01-24 12:29 | EKG12_ITS ---
Test Reason : poss stroke Blood Pressure : */* mmHG Vent. Rate : 63 BPM Atrial Rate : 63 BPM P-R Int : 188 ms QRS Dur : 108 ms QT Int : 410 ms P-R-T Axes : 82 34 21 degrees QTcB Int : 419 ms Normal sinus rhythm Normal ECG Confirmed by Erwin Frankel ([id number]), editor map MANJIT RAMIREZ ([id number]) on 01/26/2025 7:04:08 AM Referred By: Confirmed By: Erwin Frankel
--- NOTE | 2025-01-24 12:32 | CT_ITS ---
EXAM: STROKE BRAIN/HEAD WITHOUT CONT CLINICAL HISTORY: Neuro deficit, acute stroke suspected COMPARISON: None. TECHNIQUE: Noncontrast images of the head with multiplanar reconstructions. Dose reduction techniques were used including intermediate exposure control (AEC),iterative reconstruction technique, and/or mA and/or KV dose adjustments based on patient's size. FINDINGS: CT HEAD FINDINGS: No acute intracranial hemorrhage, mass, mass effect, midline shift or pathologic extra-axial fluid collection. Nonspecific periventricular white matter changes are noted No hydrocephalus. Age- appropriate cerebral volume and white matter. Visualized paranasal sinuses and mastoid air cells are clear. The calvarium is grossly intact. CT/STROKE Brain/Head without Cont IMPRESSION: 1. No acute intracranial abnormality. 2. Age-appropriate volume loss and remote small vessel ischemic changes Findings communicated to Dr. Barry on 01/24/2025 at 1301 hours Reading Location: [facility]
--- NOTE | 2025-01-24 12:37 | CT_ITS ---
PROCEDURE: STROKE CTA HEAD AND NECK W/CON REASON FOR EXAM: Neuro deficit, acute stroke suspected TECHNIQUE: CTA imaging of the head and neck from the aortic arch to the skull vertex with intravenous contrast. 3D reconstructions. COMPARISON: None. # of known CTs in the past 12 months: 0 # of known Cardiac Nuclear Medicine Studies in the past 12 months: 0 FINDINGS: Aortic Arch: Normal size and branching pattern. No significant atherosclerotic plaque. Brachiocephalic and Subclavians: Unremarkable RIGHT Carotid: Right CCA: Moderate calcified and soft plaque. Right ICA: Moderate calcified and soft plaque. Maximum stenosis (NASCET): 0-49 % Right ECA: Unremarkable. LEFT Carotid: Left CCA: Moderate calcified and soft plaque. Left ICA: Moderate calcified and soft plaque. Maximum stenosis (NASCET): 0-49 % Left ECA: Unremarkable. Vertebrals: Codominant. Arise from the subclavians. Both vertebrals form the basilar. RIGHT Vertebral: Unremarkable. LEFT Vertebral: Unremarkable. No intracranial aneurysms or large vascular malformations are identified. Anterior cerebral arteries: Unremarkable. Middle cerebral arteries: Unremarkable. Basilar artery: Unremarkable. Posterior cerebral arteries: Unremarkable. Other major branches of the posterior circulation: Unremarkable. Major venous structures: Unremarkable. Other findings: No lymphadenopathy. Lung apices are clear. Bones are unremarkable. CT/STROKE CTA Head AND Neck W/Con IMPRESSION: Moderate atherosclerotic plaque and calcification with no hemodynamically signi ficant stenosis in the bilateral arteries of the head and neck. No large vessel occlusion. Findings were initially communicated to Dr. Barry at time of non con CT of the head. No change from that report. One or more dose reduction techniques were used (e.g., Automated exposure contr ol, adjustment of the mA and/or kV according to patient size, use of iterative reconstruction technique). Reading Location: [facility]
[2025-01-24 12:39] LABS: Absolute Lymphocyte Count 1.06 X10^3/uL (0.83-4.51); Absolute Neutrophil Count 3.5 X10^3/uL (2.0-7.7); Basophil# 0.02 X10^3/uL; Basophil% 0.4 % (0-1); Eosinophil# 0.01 X10^3/uL; Eosinophils% 0.2 % (0-5); Hemoglobin 11.4 g/dL (13.0-16.5); Lymphocyte # 1.06 X10^3/ul (0.83-4.51); Lymphocyte % 20.2 % (19-41); Mean Corp Hgb Conc 31.7 g/dL (32-36); Mean Corpuscular Hgb 31.5 pg (27.0-32.0); Mean Corpuscular Volume 99.4 fL (80-94); Mean Platelet Vol. 9.9 fl (6.2-12.0); Monocyte# 0.62 X10^3/uL; Monocyte% 11.8 % (0-10); NRBC Flagged by Analyzer 0 % (0-5); Neutrophil # 3.54 X10^3/uL (2.7-7.7); Neutrophil % 67.2 % (47-70); Platelet Count 206 K/mm3 (150-450); RBC Distribution Width CV 14.2 % (11.6-14.6); Red Blood Count 3.62 M/mm3 (4.6-6.2); White Blood Count 5.3 K/mm3 (4.4-11.0)
[2025-01-24 12:45] LABS: International Normalized Ratio 1.2; Partial Thromboplast Time 29.3 Seconds (24.1-36.2); Prothrombin Time (Protime)PT. 15.3 SECONDS (11.7-14.9)
[2025-01-24 12:56] LABS: Anion Gap 11 (5-15); BUN 32 mg/dL (4-19); BUN/Creat Ratio 24.2 RATIO (10-20); Calcium 8.6 mg/dL (7.6-11.0); Carbon Dioxide 23.7 mmol/L (22.0-29.0); Chloride 104 mmol/L (96-108); Creatinine, Serum 1.33 mg/dL (0.70-1.20); EST Glomerular Filtration Rate 53 (>60); Glucose 149 mg/dL (70-99); Sodium Level 138 mmol/L (133-145); Troponin T High Sensitivity 29 ng/L (<=22)
[2025-01-24] MEDS: 0.9% Normal Saline (1000mL) 1,000 ML 999 ML IV ×4 (12:58→18:39)
--- NOTE | 2025-01-24 13:03 | RAD_ITS ---
PROCEDURE: CHEST 1 VIEW REASON FOR EXAM: Neuro deficit, acute stroke suspected TECHNIQUE: Frontal view of the chest COMPARISON: 11/21/2024 FINDINGS: Right IJ chest port with tip of the SVC. Heart size is moderately enlarged. The mediastinal contour is unremarkable. The lungs are clear. Degenerative changes are identified within the thoracic spine. Median sternotomy wires. RAD/Chest 1 View IMPRESSION: Cardiomegaly with no acute pulmonary disease. Reading Location: [facility]
[2025-01-24 13:05] LABS: Bedside Glucose 118 mg/dL (74-106)
[2025-01-24 13:49] LABS: Mucous, Urine 0 SEEN /hpf (<or=2+)
[2025-01-24 13:51] LABS: Color, Urine Yellow (Yellow); Glucose, Dipstick Normal (Normal); Ketone-Dipstick Negative (Negative); Leukocyte Esterase-Dipstick 500 /ul (Negative); Nitrite-Dipstick Positive (Negative); Occult Blood-Urine 50 /ul (Negative); Protein-Dipstick 30 mg/dl (Negative); Urine Bilirubin Dipstick Negative (Negative); Urine Clarity Turbid (Clear); Urine Urobilinogen Normal (Normal); Urine pH 6.5 (5.0 - 8.0)
[2025-01-24 14:00] LABS: Bacteria 3+ /hpf (None Seen); Red Blood Cells-Urine 0-5 SEEN /hpf (0-5); Squamous Epithelial Cells - UA 0-5 SEEN /hpf (0-5); White Blood Cells 50-100 SEEN /hpf (0-5)
--- NOTE | 2025-01-24 14:10 | EDS_ITS ---
HPI History of Present Illness Chief Complaint: General Illness Narrative Narrative: Patient is a 84-year-old male with a past medical history of COPD, JOHN, hypertension, anemia, bladder cancer, chronic kidney disease stage III, diabetes who presents to the emergency department with a chief complaint of of slurred speech, facial droop and weakness. According to EMS and staff his last known well was 11 PM on 01/23/2025. Staff noted that at 7:50 AM this morning at his facility that he had the symptoms family was persistent and they had recommended him to be transferred here. When EMS arrived they did not notice any of the symptoms. Family states that he is confused and not acting his normal self. [facility] Medical History Right foot sprain Right ankle sprain Fracture of fibula, right, closed Obesity (BMI 30-39.9) Chronic back pain Osteoarthritis DDD (degenerative disc disease) Lumbar spondylosis MSSA bacteremia Acute hyperglycemia COPD (chronic obstructive pulmonary disease) Blood bacterial culture positive Arthritis of sacroiliac joint Candidal dermatitis Candidiasis Sleep apnea Kidney disease Smoker H/O cardiovascular stress test History of left heart catheterization (~02/24/10) Cardiology follow-up encounter Port-A-Cath in place (~01/24/21) History of blood transfusion bladder instill antica agent Low back pain Primary hypertension Emphysema, unspecified Congenital stenosis and stricture of esophagus Cardiac murmur, unspecified Atherosclerotic heart disease Anemia Acute kidney failure, unspecified Gross hematuria BPH with obstruction/lower urinary tract symptoms Bladder cancer Nicotine dependence, cigarettes, uncomplicated JOHN (obstructive sleep apnea) COPD (chronic obstructive pulmonary disease) Acute IA, inferior wall CKD stage 3 Diabetes mellitus Hyperlipidemia Pulmonary HTN CAD (coronary artery disease) Diabetic neuropathy Mitral valve regurgitation Tricuspid valve regurgitation B12 deficiency Parkinson disease Pneumonia Tobacco use disorder, continuous Obesity Home Medications ?Medication ?Instructions ?Recorded ?Last Taken ?Type duloxetine 60 mg capsule,delayed 60 mg PO BID DEPRESSI ON 03/12/18 11/28/24 History release omega-3 fatty acids 1,000 mg 1,000 mg PO QDAY SUPPLEME NT 03/12/18 Unknown History capsule fenofibrate 160 mg tablet 160 mg PO DAILY CHOLESTEROL 01/14/21 11/27/24 History glimepiride 4 mg tablet 4 mg PO DAILY DIABETIC 01/1411/28/24 History pioglitazone 45 mg tablet (Actos) 45 mg PO DAILY DIABE KARMEN 01/14/21 Unknown History primidone 250 mg tablet 250 mg PO TID PARKINSONS 11/28/24 History simvastatin 40 mg tablet 40 mg PO QHS CHOLESTEROL 11/27/24 History hydrocodone-acetaminophen 5-325mg 1 tab PO Q6H PRN Hailey n 03/23/21 Unknown History 5mg-325mg ipratropium 0.5 mg-albuterol 3 mg 3 ml inhalation Q6H COPD J44.9 07/03/22 Unknown Rx (2.5 mg base)/3 mL nebulization #180 mL soln carbidopa 25 mg-levodopa 100 mg 1 tab PO BID PARKINSON 'S 10/31/23 11/28/24 History tablet losartan 25 mg tablet 25 mg PO QDAY HTN 04/01/24 0 11/28/24 History insulin glargine 100 unit/mL (3 15 unit subcut .Daily Diabetes 10/05/24 Unknown History mL) subcutaneous pen (Lantus Solostar U-100 Insulin) budesonide 160 mcg-glycopyr 9 2 inh inhalation BID WHE EZING 10/16/24 11/28/24 Rx mcg-formot 4.8 mcg/actuation HFA #10.7 grams inhaler ([employer]) blood sugar diagnostic ([facility] 11/21/24 Unknown His tory Verio test strips) blood-glucose meter ([facility] 11/21/24 Unknown Histor y Verio Flex Meter) gabapentin 600 mg tablet 600 mg PO TID NEUROPATHY 11/28/24 History lancets 33 gauge ([facility] Delica 11/21/24 Unknown Hi story Plus Lancet) bisacodyl 5 mg tablet,delayed 5 mg PO ONCE 01/19/25 Un known History release cholecalciferol (vitamin D3) 10 10 mcg PO QDAY 5 Unknown History mcg (400 unit) capsule famotidine 20 mg tablet 20 mg PO BID 01/19/25 Unknow n History metoprolol succinate 25 mg 25 mg PO QDAY 01/19/25 Unkn own History tablet,extended release 24 hr polyethylene glycol 3350 17 4 g PO QDAY 01/19/25 Unkno wn History gram/dose oral powder (Miralax) Allergy/AdvReac Type Severity Reaction Status Date / Time cefepime Allergy Severe Anaphylaxis Verified 01/19/25 10:05 cefazolin Allergy Intermediate Hives Verified 01/19/25 10:05 Family History Mother Ovarian cancer Father Heart disease Brother Leukemia Surgical History Status post radical cystoprostatectomy Hx of transurethral resection of prostate (~01/05/21) History of quadruple bypass History of hand surgery History of ankle surgery Hx of cystoscopy S/P TURP Previous back surgery S/P CABG x 4 Social History current occupational status: retired Smoking Status: Former smoker quit date: 12/27/20 alcohol intake: never substance use type: does not use caffeine: Yes Type: coffee Number of servings: 1 eating out: rarely or never ROS ROS ED ROS Narrative Constitutional: Denies fevers, chills, headaches Eyes: Denies change in vision double vision blurry vision. Cardiovascular: Denies chest pain or palpitations Respiratory: Denies coughing wheezing shortness of breath Abdomen: Denies abdominal pain nausea vomit diarrhea : Denies any urinary symptoms Neurological: Complains of neurological changes as noted above Musculoskeletal: Denies back pain Skin: Denies rashes lesions EXAM Physical Exam Narrative Exam Narrative: General: Patient lying in bed rest comfortably did not appear to be acute distress Head: Atraumatic, normocephalic Eyes: PERRL bilaterally, EOMI bilaterally, no conjunctival injection noted Neck: Soft, supple, trachea midline Cardiovascular: Regular rate and rhythm no murmurs gallops rubs noted Respiratory: Clear to auscultation bilaterally Abdomen: Soft, nondistended, nontender to palpation Extremities: +4/5 strength noted in the bilateral upper extremities, +3/5 strength noted in the bilateral lower extremities, radial pulses +2/4 in the bilateral extremities Neurological: Patient following commands knew that he was at the hospital he was confused on the year which his at bedside states that he showed no, NIH of 0 GCS of 15 Skin: Warm, dry, intact no rashes or lesions noted Const Vital Signs: 01/24/25 12:21 01/24/25 12:30 01/24/25 12:38 Temperature 99.2 F H Temperature Source Oral Pulse Rate 97 66 Respiratory Rate 18 19 H Respiratory Effort Respiratory Pattern Blood Pressure 122/60 H 140/60 H Blood Pressure Mean 80 86 Pulse Ox 98 96 95 Oxygen Delivery Method Room Air Room Air Nasal Cannula Oxygen Flow Rate (L/min) 2 01/24/25 12:45 01/24/25 12:53 01/24/25 12:53 Temperature 99.6 F H Temperature Source Oral Pulse Rate 68 68 Respiratory Rate 21 H 19 H Respiratory Effort Normal Respiratory Pattern Normal Blood Pressure 133/60 H 133/60 H Blood Pressure Mean 84 84 Pulse Ox 96 92 Oxygen Delivery Method Room Air Room Air Oxygen Flow Rate (L/min) 01/24/25 13:15 01/24/25 13:24 01/24/25 13:32 Temperature 99.6 F H Temperature Source Oral Pulse Rate 61 75 62 Respiratory Rate 21 H 19 H 15 Respiratory Effort Respiratory Pattern Blood Pressure 128/53 H 128/53 H 128/54 H Blood Pressure Mean 78 78 78 Pulse Ox 96 94 96 Oxygen Delivery Method Room Air Room Air Room Air Oxygen Flow Rate (L/min) 01/24/25 14:00 01/24/25 14:48 Temperature 100.7 F H Temperature Source Oral Pulse Rate 62 68 Respiratory Rate 22 H 15 Respiratory Effort Respiratory Pattern Blood Pressure 130/54 H 123/62 H Blood Pressure Mean 79 82 Pulse Ox 96 95 Oxygen Delivery Method Room Air Room Air Oxygen Flow Rate (L/min) MDM MDM MDM Narrative Medical decision making narrative: Patient is a 84-year-old male who presented to the emergency department chief complaint of altered mental status, slurred speech facial droop and weakness earlier today around 750 and once again his last known well was 11 PM on 01/23/2025. On the differential diagnose includes Melamin to TIA, ischemic stroke, hemorrhagic stroke, electrolyte abnormality, hypoglycemia, UTI. Once workup is obtained reviewed he will be reevaluated. Patient is not a tenecteplase candidate as his last known well was 11 PM yesterday 01/23/2025. Patient's CBC reviewed showed no evidence leukocytosis white blood count normal at 5.3, hemoglobin low 0.4, plate count was noted be normal at 206. Patient's INR 1.2, PT of 15.3, sodium normal 130, potassium of 4, creatinine was 1.33. Patient's troponin was noted at 29, urinalysis was significant for urinary tract infection with positive nitrites 500 leukocyte esterase, 50-100 white cells with 3+ bacteria this was sent for culture patient was given a dose of ciprofloxacin. Patient chest x-ray reviewed by myself and by radiology showed cardiomegaly with no other acute cardiopulmonary processes. Patient CT head and brain without contrast showed no acute intracranial abnormality age-appropriate volume loss and remote small vessel ischemic changes. Patient CTA head and neck showed no evidence of large vessel occlusion there is moderate atherosclerotic plaque and calcification with no hemodynamically significant stenosis in the bilateral arteries of the head and neck. At this point time will admit the patient to the hospital for further evaluation of his slurred speech, facial droop, and his weakness as well as urinary tract infection Discussed case with hospitalist who accept patient for admission Dr. Guadarrama. Patient will be given a gram of Tylenol for his fever that he developed here. Patient and family members notified all question concerns answered. Will add on cultures and lactic. Lab Data Labs: Laboratory Results - last 24 hr 01/24/25 01/24/25 01/24/25 12:20 12:45 13:45 WBC 5.3 RBC 3.62 L Hgb 11.4 L Hct 36.0 L MCV 99.4 H MCH 31.5 MCHC 31.7 L RDW Std Deviation 52.0 H RDW Coeff of Yara 14.2 Plt Count 206 MPV 9.9 Immature Gran % (Auto) 0.200 Neut % (Auto) 67.2 Lymph % (Auto) 20.2 Wood % (Auto) 11.8 H Eos % (Auto) 0.2 Baso % (Auto) 0.4 Absolute Neuts (auto) 3.5 Absolute Lymphs (auto) 1.06 Nucleated RBC % 0 PT 15.3 H INR 1.2 APTT 29.3 Sodium 138 Potassium 4.0 Chloride Direct 104 Carbon Dioxide 23.7 Anion Gap 11 BUN 32 H Creatinine 1.33 H Estim Creat Clear Calc 52.50 Est GFR (MDRD) Non-Af 53 L BUN/Creatinine Ratio 24.2 H Glucose 149 H Calcium 8.6 Troponin T High Sens 29 H Troponin T Hi Sens 2 Hr Troponin T Hi Sens 2Hr Delta Urine Color Yellow Urine Clarity Turbid Urine pH 6.5 Ur Specific [place] 1.010 Urine Protein 30 H Urine Glucose (UA) Normal Urine Ketones Negative Urine Occult Blood 50 H Urine Nitrite Positive H Urine Bilirubin Negative Urine Urobilinogen Normal Ur Leukocyte Esterase 500 H Urine RBC 0-5 SEEN Urine WBC 50-100 SEEN Ur Squamous Epith Cells 0-5 SEEN Urine Bacteria 3+ Urine Mucus 0 SEEN POC Glucose 118 H 01/24/25 14:27 WBC RBC Hgb Hct MCV MCH MCHC RDW Std Deviation RDW Coeff of Yara Plt Count MPV Immature Gran % (Auto) Neut % (Auto) Lymph % (Auto) Wood % (Auto) Eos % (Auto) Baso % (Auto) Absolute Neuts (auto) Absolute Lymphs (auto) Nucleated RBC % PT INR APTT Sodium Potassium Chloride Direct Carbon Dioxide Anion Gap BUN Creatinine Estim Creat Clear Calc Est GFR (MDRD) Non-Af BUN/Creatinine Ratio Glucose Calcium Troponin T High Sens Troponin T Hi Sens 2 Hr 28 H Troponin T Hi Sens 2Hr Delta 1 Urine Color Urine Clarity Urine pH Ur Specific [place] Urine Protein Urine Glucose (UA) Urine Ketones Urine Occult Blood Urine Nitrite Urine Bilirubin Urine Urobilinogen Ur Leukocyte Esterase Urine RBC Urine WBC Ur Squamous Epith Cells Urine Bacteria Urine Mucus POC Glucose Radiography Diagnostic Testing: Clinical Impression(s) from Imaging Studies Brain CT 01/24/25 12:32 IMPRESSION: 1. No acute intracranial abnormality. 2. Age-appropriate volume loss and remote small vessel ischemic changes Findings communicated to Dr. Barry on 01/24/2025 at 1301 hours Reading Location: [facility] Head/Neck CTA 01/24/25 12:37 IMPRESSION: Moderate atherosclerotic plaque and calcification with no hemodynamically significant stenosis in the bilateral arteries of the head and neck. No large vessel occlusion. Findings were initially communicated to Dr. Barry at time of non con CT of the head. No change from that report. One or more dose reduction techniques were used (e.g., Automated exposure control, adjustment of the mA and/or kV according to patient size, use of iterative reconstruction technique). Reading Location: [facility] Chest X-Ray 01/24/25 13:03 IMPRESSION: Cardiomegaly with no acute pulmonary disease. Reading Location: [facility] Discharge Plan Triage Chief Complaint: General Illness ED Provider: Francis Barry Dx/Rx/DC Orders Clinical Impression: Altered mental status, Urinary tract infection, Brain TIA Prescriptions: No Action omega-3 fatty acids 1,000 mg capsule 1,000 mg PO QDAY duloxetine 60 mg capsule,delayed release(DR/EC) 60 mg PO BID hydrocodone-acetaminophen 5-325 mg tablet 1 tab PO Q6H PRN (Reason: Pain) carbidopa-levodopa 25-100 mg tablet 1 tab PO BID losartan 25 mg tablet 25 mg PO QDAY Breztri [employer] 160-9-4.8 mcg/actuation HFA aerosol inhaler 2 inh inhalation BID Qty: 10.7 6RF bisacodyl 5 mg tablet,delayed release (DR/EC) 5 mg PO ONCE cholecalciferol (vitamin D3) 10 mcg (400 unit) capsule 10 mcg PO QDAY famotidine 20 mg tablet 20 mg PO BID metoprolol succinate 25 mg tablet extended release 24 hr 25 mg PO QDAY polyethylene glycol 3350 [Miralax] 17 gram/dose powder 4 g PO QDAY pioglitazone [Actos] 45 MG tablet 45 mg PO DAILY simvastatin 40 MG tablet 40 mg PO QHS primidone 250 MG tablet 250 mg PO TID glimepiride 4 MG tablet 4 mg PO DAILY fenofibrate 160 MG tablet 160 mg PO DAILY insulin glargine [Lantus Solostar U-100 Insulin] 100 unit/mL (3 mL) insulin pen 15 unit subcut .Daily Patient Comments: 15 units daily gabapentin 600 mg tablet 600 mg PO TID (DME) blood-glucose meter [OneTouch Verio Flex meter] Misc MISCELLANEOUS UD (DME) OneTouch Verio test strips Strip MISCELLANEOUS TID (DME) lancets [OneTouch Delica Plus Lancet] 33 gauge [facility] MISCELLANEOUS TID ipratropium-albuterol 0.5 mg-3 mg(2.5 mg base)/3 mL solution for nebulization 3 ml INHALATION Q6H Qty: 180 11RF Primary Care Provider: Ruben Angela NP Referrals: Ruben Angela HABILITATIVE INTERVENTIONIST, HABILITATIVE INTERVENTIONIST-C [Primary Care Provider] - Print Language: Grenadian Disposition Disposition: Acute Care Hospital [facility]
[2025-01-24] MEDS: Ciprofloxacin 400 MG/200 ML BAG 200 MG IV (14:20)
[2025-01-24 15:03] LABS: TROPONIN VARIANCE 2 HR 1; Troponin T High Sens 2 HR 28 ng/L (<=22)
[2025-01-24] MEDS: Acetaminophen 500 MG Tablet 1000 MG PO (15:20)
--- NOTE | 2025-01-24 15:37 | PCM.HP.STD ---
HPI - General General Date of Service: 01/24/25 Chief Complaint: confusion HPI Narrative AKASH GREGORY, is a 84 M who presents with confusion. Patient is in a rehab center recovering from an ankle fracture that he sustained in November. Patient was doing well up until recently where that he was noted to be more confused and slurring his words. Patient was brought to the hospital for evaluation. Patient was found to have urinary tract infection and received 2 L IV fluid as well as ciprofloxacin. The hospitalist was contacted for admission. Patient is confused and unable to provide any adequate history so history is obtained primarily through the emergency room physician as well as the patient's family was at bedside.Patient does get slow at times due to his parkinsonism. But that this is more prominent than what he typically experiences at home. [facility] Medical History Right foot sprain Right ankle sprain Fracture of fibula, right, closed Obesity (BMI 30-39.9) Chronic back pain Osteoarthritis DDD (degenerative disc disease) Lumbar spondylosis MSSA bacteremia Acute hyperglycemia COPD (chronic obstructive pulmonary disease) Blood bacterial culture positive Arthritis of sacroiliac joint Candidal dermatitis Candidiasis Sleep apnea Kidney disease Smoker H/O cardiovascular stress test History of left heart catheterization (~02/24/10) Cardiology follow-up encounter Port-A-Cath in place (~01/24/21) History of blood transfusion bladder instill antica agent Low back pain Primary hypertension Emphysema, unspecified Congenital stenosis and stricture of esophagus Cardiac murmur, unspecified Atherosclerotic heart disease Anemia Acute kidney failure, unspecified Gross hematuria BPH with obstruction/lower urinary tract symptoms Bladder cancer Nicotine dependence, cigarettes, uncomplicated JOHN (obstructive sleep apnea) COPD (chronic obstructive pulmonary disease) Acute AK, inferior wall CKD stage 3 Diabetes mellitus Hyperlipidemia Pulmonary HTN CAD (coronary artery disease) Diabetic neuropathy Mitral valve regurgitation Tricuspid valve regurgitation B12 deficiency Parkinson disease Pneumonia Tobacco use disorder, continuous Obesity Home Medications ?Medication ?Instructions ?Recorded ?Last Taken ?Type duloxetine 60 mg capsule,delayed 60 mg PO BID DEPRESSION 03/12/18 11/28/24 History release omega-3 fatty acids 1,000 mg 1,000 mg PO QDAY SUPPLEMENT 03/12/18 Unknown History capsule fenofibrate 160 mg tablet 160 mg PO DAILY CHOLESTEROL 01/14/21 11/27/24 History glimepiride 4 mg tablet 4 mg PO DAILY DIABETIC 01/14/21 11/28/24 History pioglitazone 45 mg tablet (Actos) 45 mg PO DAILY DIABETES 01/14/21 Unknown History primidone 250 mg tablet 250 mg PO TID PARKINSONS 01/14/21 11/28/24 History simvastatin 40 mg tablet 40 mg PO QHS CHOLESTEROL 01/14/21 11/27/24 History hydrocodone-acetaminophen 5-325mg 1 tab PO Q6H PRN Pain 03/23/21 Unknown History 5mg-325mg ipratropium 0.5 mg-albuterol 3 mg 3 ml inhalation Q6H COPD J44.9 07/03/22 Unknown Rx (2.5 mg base)/3 mL nebulization #180 mL soln carbidopa 25 mg-levodopa 100 mg 1 tab PO BID PARKINSON'S 10/31/23 11/28/24 History tablet losartan 25 mg tablet 25 mg PO QDAY HTN 04/01/24 11/28/24 History insulin glargine 100 unit/mL (3 15 unit subcut .Daily Diabetes 10/05/24 Unknown History mL) subcutaneous pen (Lantus Solostar U-100 Insulin) budesonide 160 mcg-glycopyr 9 2 inh inhalation BID WHEEZING 10/16/24 11/28/24 Rx mcg-formot 4.8 mcg/actuation HFA #10.7 grams inhaler ([employer]-DV[employer]here) blood sugar diagnostic ([facility] 11/21/24 Unknown History Verio test strips) blood-glucose meter ([facility] 11/21/24 Unknown History Verio Flex Meter) gabapentin 600 mg tablet 600 mg PO TID NEUROPATHY 11/21/24 11/28/24 History lancets 33 gauge ([facility] Delica 11/21/24 Unknown History Plus Lancet) bisacodyl 5 mg tablet,delayed 5 mg PO ONCE 01/19/25 Unknown History release cholecalciferol (vitamin D3) 10 10 mcg PO QDAY 01/19/25 Unknown History mcg (400 unit) capsule famotidine 20 mg tablet 20 mg PO BID 01/19/25 Unknown History metoprolol succinate 25 mg 25 mg PO QDAY 01/19/25 Unknown History tablet,extended release 24 hr polyethylene glycol 3350 17 4 g PO QDAY 01/19/25 Unknown History gram/dose oral powder (Miralax) Allergy/AdvReac Type Severity Reaction Status Date / Time cefepime Allergy Severe Anaphylaxis Verified 01/19/25 10:05 cefazolin Allergy Intermediate Hives Verified 01/19/25 10:05 Family History Mother Ovarian cancer Father Heart disease Brother Leukemia Surgical History Status post radical cystoprostatectomy Hx of transurethral resection of prostate (~01/05/21) History of quadruple bypass History of hand surgery History of ankle surgery Hx of cystoscopy S/P TURP Previous back surgery S/P CABG x 4 Social History current occupational status: retired Smoking Status: Former smoker quit date: 12/27/20 alcohol intake: never substance use type: does not use caffeine: Yes Type: coffee Number of servings: 1 eating out: rarely or never ROS Review of Systems ROS Unobtainable: due to encephalopathy Vital Signs Vital Signs Vital Signs: 01/24/25 12:21 01/24/25 12:30 01/24/25 12:38 Temperature 37.3 C H Temperature Source Oral Pulse Rate 97 66 Respiratory Rate 18 19 H Respiratory Effort Respiratory Pattern Blood Pressure 122/60 H 140/60 H Blood Pressure Mean 80 86 Pulse Ox 98 96 95 Oxygen Delivery Method Room Air Room Air Nasal Cannula Oxygen Flow Rate (L/min) 2 01/24/25 12:45 01/24/25 12:53 01/24/25 12:53 Temperature 37.6 C H Temperature Source Oral Pulse Rate 68 68 Respiratory Rate 21 H 19 H Respiratory Effort Normal Respiratory Pattern Normal Blood Pressure 133/60 H 133/60 H Blood Pressure Mean 84 84 Pulse Ox 96 92 Oxygen Delivery Method Room Air Room Air Oxygen Flow Rate (L/min) 01/24/25 13:15 01/24/25 13:24 01/24/25 13:32 Temperature 37.6 C H Temperature Source Oral Pulse Rate 61 75 62 Respiratory Rate 21 H 19 H 15 Respiratory Effort Respiratory Pattern Blood Pressure 128/53 H 128/53 H 128/54 H Blood Pressure Mean 78 78 78 Pulse Ox 96 94 96 Oxygen Delivery Method Room Air Room Air Room Air Oxygen Flow Rate (L/min) 01/24/25 14:00 01/24/25 14:48 01/24/25 15:00 Temperature 38.2 C H 38.4 C H Temperature Source Oral Oral Pulse Rate 62 68 67 Respiratory Rate 22 H 15 21 H Respiratory Effort Respiratory Pattern Blood Pressure 130/54 H 123/62 H 124/57 H Blood Pressure Mean 79 82 79 Pulse Ox 96 95 95 Oxygen Delivery Method Room Air Room Air Room Air Oxygen Flow Rate (L/min) Weight Weight: 114.1 kg Body Mass Index (BMI) 38.2 Physical Exam Const Constitutional Narrative: Alert to self. Does not know where he is nor the date. Follows commands. General Appearance: cooperative HEENT normocephalic, head/scalp atraumatic, hearing grossly normal bilaterally and moist oral mucous membranes Eyes PERRL and EOMs intact bilaterally Neck no lymphadenopathy Neck Narrative: No thyromegaly Resp normal respiratory effort, no retractions, no use of accessory muscles and clear to auscultation bilaterally Cardio regular rate, regular rhythm, S1 normal heart sound and S2 normal heart sound GI normal to inspection, nondistended, normoactive bowel sounds, soft to palpation, non-tender and non-distended Extremity normal to inspection, full ROM and no clubbing, cyanosis or edema Neuro oriented x3, CN's II-XII intact bilaterally, moves all extremities and no focal motor deficits Sensorium / Orientation: awake, alert, oriented to person, oriented to place and oriented to time Speech: speech normal Motor Exam: strength 5/5 throughout Psych affect normal Results Lab / Micro Data Attestation: I reviewed the patient's lab results. 01/24/25 12:20 01/24/25 12:20 Labs: Laboratory Results - last 24 hr 01/24/25 12:20: WBC 5.3, RBC 3.62 L, Hgb 11.4 L, Hct 36.0 L, MCV 99.4 H, MCH 31.5, MCHC 31.7 L, RDW Std Deviation 52.0 H, RDW Coeff of Yara 14.2, Plt Count 206, MPV 9.9, Immature Gran % (Auto) 0.200, Neut % (Auto) 67.2, Lymph % (Auto) 20.2, [place] % (Auto) 11.8 H, Eos % (Auto) 0.2, Baso % (Auto) 0.4, Absolute Neuts (auto) 3.5, Absolute Lymphs (auto) 1.06, Nucleated RBC % 0, PT 15.3 H, INR 1.2, APTT 29.3, Sodium 138, Potassium 4.0, Chloride Direct 104, Carbon Dioxide 23.7, Anion Gap 11, BUN 32 H, Creatinine 1.33 H, Estim Creat Clear Calc 52.50, Est GFR (MDRD) Non-Af 53 L, BUN/Creatinine Ratio 24.2 H, Glucose 149 H, Calcium 8.6, Troponin T High Sens 29 H 01/24/25 12:45: POC Glucose 118 H 01/24/25 13:45: Urine Color Yellow, Urine Clarity Turbid, Urine pH 6.5, Ur Specific [place] 1.010, Urine Protein 30 H, Urine Glucose (UA) Normal, Urine Ketones Negative, Urine Occult Blood 50 H, Urine Nitrite Positive H, Urine Bilirubin Negative, Urine Urobilinogen Normal, Ur Leukocyte Esterase 500 H, Urine RBC 0-5 SEEN, Urine WBC 50-100 SEEN, Ur Squamous Epith Cells 0-5 SEEN, Urine Bacteria 3+, Urine Mucus 0 SEEN 01/24/25 14:27: Troponin T Hi Sens 2 Hr 28 H, Troponin T Hi Sens 2Hr Delta 1 Micro: Microbiology 01/24/25 13:05 Mucosa - Nose SARS-CoV-2, Influenza & RSV (PCR) - Final Imaging Radiology Impression Brain CT 01/24/25 12:32 IMPRESSION: 1. No acute intracranial abnormality. 2. Age-appropriate volume loss and remote small vessel ischemic changes Findings communicated to Dr. Barry on 01/24/2025 at 1301 hours Reading Location: [facility] Head/Neck CTA 01/24/25 12:37 IMPRESSION: Moderate atherosclerotic plaque and calcification with no hemodynamically significant stenosis in the bilateral arteries of the head and neck. No large vessel occlusion. Findings were initially communicated to Dr. Barry at time of non con CT of the head. No change from that report. One or more dose reduction techniques were used (e.g., Automated exposure control, adjustment of the mA and/or kV according to patient size, use of iterative reconstruction technique). Reading Location: [facility] Chest X-Ray 01/24/25 13:03 IMPRESSION: Cardiomegaly with no acute pulmonary disease. Reading Location: [facility] Assessment & Plan Assessment/Plan (1) Sepsis: PLAN: Present admission with a qSOFA of 2 given a respiratory rate of 22 and encephalopathy. SIRS 2 out of 4 with fever and tachypnea. Patient received 2 L of IV fluid in the emergency room. I will give him an additional 1.5 L to give him 30 cc/kg of IV fluid (is elected be slightly more than that given his current weight).Per the [facility] sepsis community protocol mandates that the patient be admitted to the ICU even though he is currently hemodynamically stable and also mandates that the patient have a critical care physician consultation, even though the patient is hemodynamically stable. Follow-up cultures and adjust antibiotics accordingly. (2) Urinary tract infection: PLAN: Patient had a urinary tract infection with E. coli and Pseudomonas that were both sensitive to Cipro back in November 21. Continue with ciprofloxacin for now. And follow-up cultures. (3) Encephalopathy acute: PLAN: Multifactorial due to sepsis, UTI and patient underlying Parkinson disease. Head CT showed no acute process CTA of the head and neck showed moderate atherosclerosic plaque and calcification with no hemodynamic significant stenosis in bilateral arteries of the head and neck. No LVO. Will hold off on gabapentin and [place]. PLAN: Plan Chronic conditions DM2: Continue with glargine. Add sliding scale insulin. Check an A1c. Continue with glimepiride and pioglitazone. Hypertension: Stable. Continue with metoprolol succinate, losartan Parkinson disease: Continue with carbidopa/levodopa. VTE prophylaxis with enoxaparin CODE STATUS: Per the care home facility records. Patient is DNR Comfort Care arrest. Case discussed with the patient's family at bedside. Charges/Coding Visit Charges Inpatient E&M: 98546 Init Hosp L3
--- NOTE | 2025-01-24 15:40 | CASEMGMT ---
Care Management Face to Face with patient for initial transition planning/care coordination assessment in the ED.? This filing writer introduced self and role at [facility]. Patient alert when social media strategist first arrived however fell asleep shortly afterwards. ?Patient?s and son were at bedside and patient?s answered all questions. ? Care providers, pharmacy, and demographics verified. Admitting Diagnosis: Altered mental status, UTI and Brain TIA Other diagnosis history: Including, but not limited to: Obesity, Osteoarthritis, Chronic back pain, DDD, COPD, JOHN, HTN, AKF, CKD, stage 3, DM, CAD, Diabetic neuropathy, Parkinson?s, Bladder Cancer, Anemia, Cardiac Murmur,? Port-A-Cath in place (around 01/24/2021) and history of left heart catheterization (around 02/24/2010). PCP: Dr. Ruben Angela Specialists: Orthopedic: Dr. Garcia, Cambering Machine Operator: Dr. Jesus Estes, Oncologist, Urologist: Kit, and Neurologist: Dr. Jordan Tineo. [facility]acy: [facility] Insurance: O Medicare: Medical [employer] Prescription Benefit: ?Some?. Benefits are based on Tiers. Living Will/HPOA: ?No but interested during current admission. LNOK: , Kristy, 2 sons and a daughter.? Living Arrangements: Patient and his currently reside in a mobile home. There are 3 steps leading into the trailer and 2 [address].? Patient?s stated patient is normally able to navigate stairs without difficulty. Transportation: Patient had still been driving. Patient?s children also able to assist if/when needed. DME: Wheelchair ramp, wheelchair that?s currently being rented through [employer], [employer] bar in shower, [facility], [facility], quad cane, standard walker, rollator, lift chair and a C-PAP machine. HHC: No history of and not needed at this time. It may be beneficial to see if patient?s insurance would cover a bariatric wheelchair so patient doesn?t have to pay out of pocket.? dye house worker also provided patient?s with other possible community resources for free. SNF/Rehab: Patient has been at the [facility] since roughly 2024, following a right foot injury and has remained there since.? Patient was transported to [facility] ED from current SNF. Community Resources: [employer]; delivers food to patient and patient?s . Behavioral Health History: Denied. Patient goals: Unknown.? Patient?s stated she isn?t sure and stated either back to the SNF if medically needed or possibly home. (would need to be assessed if patient?s would require assistance or not). Patient denies any further needs or concerns at this time. Disposition Plan: admission to acute; RN CM/SW to follow for discharge planning needs that may arise. Sara Orosco, METAL BED ASSEMBLER, LETTERSET PRESS SET UP OPERATOR
[2025-01-24] MEDS: Primidone 250 MG Tablet PO (17:24)
[2025-01-24] MEDS: Carbidopa/Levodopa 25/100 Tablet PO (17:24)
[2025-01-24 17:27] LABS: Lactic Acid 1.3 mmol/L (0.0-2.0)
[2025-01-24 17:31] LABS: Bedside Glucose 113 mg/dL (74-106)
[2025-01-24 18:16] LABS: TROPONIN VARIANCE 4 HR 1; Troponin T High Sens 4 HR 30 ng/L (<=22)
--- NOTE | 2025-01-24 18:16 | NURSING ---
Kristy fine of unit change, will be in tomorrow morning with Boot for right foot.
[2025-01-24] MEDS: DULoxetine Hcl 60 MG Capsule PO (20:36)
[2025-01-24] MEDS: Ciprofloxacin 500 MG Tablet PO (20:37)
[2025-01-24] MEDS: Famotidine 20 MG Tablet PO (20:38)
[2025-01-24] MEDS: Atorvastatin Calcium 20 MG Tablet PO (20:38)
[2025-01-24 21:06] LABS: Bedside Glucose 88 mg/dL (74-106)
[2025-01-24] MEDS: Budesonide Respules 0.5 MG/2 ML AMPUL.NEB. INHALATION (21:25)
[2025-01-24] MEDS: Ipratropium/Albuterol Sulfate 3 ML AMPUL.NEB INHALATION (21:25)
--- NOTE | 2025-01-24 21:47 | CPS ---
pt has home cpap -did not bring in- did not want hospitals machine for tonight-will bring own in
[2025-01-25] VITALS (17 sets, daily range): BP systolic 108–141; BP diastolic 54–85; PULSE 51–62; RESP 15–20; TEMP 36.4–36.7; O2SAT 92–98; BMI 35.2
[2025-01-25 04:02] LABS: Absolute Lymphocyte Count 1.45 X10^3/uL (0.83-4.51); Basophil# 0.02 X10^3/uL; Basophil% 0.4 % (0-1); Eosinophil# 0.02 X10^3/uL; Eosinophils% 0.4 % (0-5); Hematocrit 32.6 % (40-54); Hemoglobin 10.3 g/dL (13.0-16.5); Lymphocyte # 1.45 X10^3/ul (0.83-4.51); Lymphocyte % 27.6 % (19-41); Mean Corp Hgb Conc 31.6 g/dL (32-36); Mean Corpuscular Hgb 31.4 pg (27.0-32.0); Mean Corpuscular Volume 99.4 fL (80-94); Mean Platelet Vol. 9.5 fl (6.2-12.0); Monocyte# 0.78 X10^3/uL; Monocyte% 14.9 % (0-10); NRBC Flagged by Analyzer 0 % (0-5); Neutrophil # 2.96 X10^3/uL (2.7-7.7); Neutrophil % 56.3 % (47-70); Platelet Count 170 K/mm3 (150-450); RBC Distribution Width CV 14.3 % (11.6-14.6); RBC Distribution Width SD 52.6 fl (35.1-43.9); Red Blood Count 3.28 M/mm3 (4.6-6.2); White Blood Count 5.3 K/mm3 (4.4-11.0)
[2025-01-25 04:53] LABS: Anion Gap 10 (5-15); BUN 29 mg/dL (4-19); BUN/Creat Ratio 25.3 RATIO (10-20); Calcium 8.1 mg/dL (7.6-11.0); Carbon Dioxide 21.2 mmol/L (22.0-29.0); Chloride 108 mmol/L (96-108); Creatinine, Serum 1.16 mg/dL (0.70-1.20); EST Glomerular Filtration Rate 63 (>60); Estimated Creatinine Clearance 60.19 ml/min (50-250); Glucose 66 mg/dL (70-99); Potassium 4.1 mmol/L (3.3-5.1); Sodium Level 139 mmol/L (133-145)
[2025-01-25] MEDS: Carbidopa/Levodopa 25/100 Tablet PO ×2 (06:24→16:44)
[2025-01-25] MEDS: Dextrose 10%-Water 250 ML 999 ML IV (06:52)
[2025-01-25 08:30] LABS: Bedside Glucose 127 mg/dL (74-106)
--- NOTE | 2025-01-25 08:32 | PN.HOSP_ITS ---
Reason for Visit Reason for Visit: Diagnoses Sepsis, unspecified organism (01/24/25) Encephalopathy, unspecified (01/24/25) Urinary tract infection, site not specified (01/24/25) Objective Data Objective Data Vital Signs: Vital Signs Temp Pulse Resp BP Pulse Ox O2 Del Method O2 Flow Rate 97.9 F 62 20 H 128/59 H 94 Room Air 2 01/25/25 04:00 01/25/25 07:00 01/25/25 07:00 01/25/25 07:00 01/25/25 07:00 01/25/25 07:00 01/24/25 12:38 Oxygen Flow Rate (L/min) 2 Oxygen Delivery Method Room Air Weight: 232 lb 12.93 oz Body Mass Index (BMI) 35.2 Intake & Output: Intake and Output for Last 24 Hours 01/23/25 01/24/25 01/25/25 23:59 23:59 23:59 Intake Total 3700 / 3700 Output Total 850 / 850 800 / 800 Balance 2850 / 2850 -800 / -800 Lab / Micro Data 01/25/25 03:55 01/25/25 03:55 Labs: Laboratory Results - last 24 hr 01/24/25 12:20: WBC 5.3, RBC 3.62 L, Hgb 11.4 L, Hct 36.0 L, MCV 99.4 H, MCH 31.5, MCHC 31.7 L, RDW Std Deviation 52.0 H, RDW Coeff of Yara 14.2, Plt Count 206, MPV 9.9, Immature Gran % (Auto) 0.200, Neut % (Auto) 67.2, Lymph % (Auto) 20.2, [place] % (Auto) 11.8 H, Eos % (Auto) 0.2, Baso % (Auto) 0.4, Absolute Neuts (auto) 3.5, Absolute Lymphs (auto) 1.06, Nucleated RBC % 0, PT 15.3 H, INR 1.2, APTT 29.3, Sodium 138, Potassium 4.0, Chloride Direct 104, Carbon Dioxide 23.7, Anion Gap 11, BUN 32 H, Creatinine 1.33 H, Estim Creat Clear Calc 52.50, Est GFR (MDRD) Non-Af 53 L, BUN/Creatinine Ratio 24.2 H, Glucose 149 H, Calcium 8.6, T roponin T High Sens 29 H 01/24/25 12:45: POC Glucose 118 H 01/24/25 13:45: Urine Color Yellow, Urine Clarity Turbid, Urine pH 6.5, Ur Specific [place] 1.010, Urine Protein 30 H, Urine Glucose (UA) Normal, Urine Ketones Negative, Urine Occult Blood 50 H, Urine Nitrite Positive H, Urine Bilirubin Negative, Urine Urobilinogen Normal, Ur Leukocyte Esterase 500 H, Urine RBC 0-5 SEEN, Urine WBC 50-100 SEEN, Ur Squamous Epith Cells 0-5 SEEN, Urine Bacteria 3+, Urine Mucus 0 SEEN 01/24/25 14:27: Troponin T Hi Sens 2 Hr 28 H, Troponin T Hi Sens 2Hr Delta 1 01/24/25 16:11: Lactic Acid 1.3 01/24/25 16:45: Troponin T Hi Sens 4Hr 30 H, Troponin T Hi Sens 4Hr Delta 1 01/24/25 17:04: POC Glucose 113 H 01/24/25 20:35: POC Glucose 88 01/25/25 03:55: WBC 5.3, RBC 3.28 L, Hgb 10.3 L, Hct 32.6 L, MCV 99.4 H, MCH 31.4, MCHC 31.6 L, RDW Std Deviation 52.6 H, RDW Coeff of Yara 14.3, Plt Count 170, MPV 9.5, Immature Gran % (Auto) 0.400, Neut % (Auto) 56.3, Lymph % (Auto) 27.6, [place] % (Auto) 14.9 H, Eos % (Auto) 0.4, Baso % (Auto) 0.4, Absolute Neuts (auto) 3.0, Absolute Lymphs (auto) 1.45, Nucleated RBC % 0, Sodium 139, Potassium 4.1, Chloride Direct 108, Carbon Dioxide 21.2 L, Anion Gap 10, BUN 29 H, Creatinine 1.16, Estim Creat Clear Calc 60.19, Est GFR (MDRD) Non-Af 63, B UN/Creatinine Ratio 25.3 H, Glucose 66 L, Hemoglobin A1c 7.0, Calcium 8.1 01/25/25 08:10: POC Glucose 127 H Micro: Microbiology 01/24/25 13:05 Mucosa - Nose SARS-CoV-2, Influenza & RSV (PCR) - Final Radiography Diagnostic Testing: Radiology Impression Brain CT 01/24/25 12:32 IMPRESSION: 1. No acute intracranial abnormality. 2. Age-appropriate volume loss and remote small vessel ischemic changes Findings communicated to Dr. Barry on 01/24/2025 at 1301 hours Reading Location: [facility] Head/Neck CTA 01/24/25 12:37 IMPRESSION: Moderate atherosclerotic plaque and calcification with no hemodynamically significant stenosis in the bilateral arteries of the head and neck. No large vessel occlusion. Findings were initially communicated to Dr. Barry at time of non con CT of the head. No change from that report. One or more dose reduction techniques were used (e.g., Automated exposure control, adjustment of the mA and/or kV according to patient size, use of iterative reconstruction technique). Reading Location: [facility] Chest X-Ray 01/24/25 13:03 IMPRESSION: Cardiomegaly with no acute pulmonary disease. Reading [facility] Physical Exam Narrative Seen and examined Patient is stated that he was confused for 1 to 2 days prior to coming here. He still feels little confused but answered general orientation questions correctly but at times he pauses and tries to recall. He also had 1 day of loose bowel movement about 3 times per day before admission. Denies any recent antibiotic intake or history of C. difficile. Denies blood or mucus. No fever. Physical exam General: Alert, Oriented x3, Cooperative HEENT: Atraumatic, PERRLA, EOMI, Normocephalic Oral: No Gingival or Mucosal Lesions/ Ulcerations Neck: Supple, No JVD, Negative Carotid Bruits Chest wall/Lungs: Right chest wall port. Air entry diminished in bilateral lung bases. Mild coarse crepitations in the lung bases. Cardiovascular: Regular rate, Regular Rhythm, CABG surgery. Abdomen: Bowel Sounds Present, Soft, Non Tender, Non-Distended : Urostomy with parastomal hernia. Had total cystectomy and prostatectomy Extremities: Mild right ankle edema, Capillary Refill Less than 3 Seconds Skin: No rashes, No breakdown Musculoskeletal: Recently ankle fracture with minimal tenderness. No Tenderness to Palpation of Joints or Extremities Neurological: Cranial nerves II-XII grossly intact, DTR 2+/4. No acute focal neurological deficit. Psych/Mental Status: Normal Affect, Appropriate. Assessment & Plan Assessment/Plan (1) Sepsis: PLAN: 84-year-old gentleman was admitted with confusion from the rehab center where he is recovering from ankle fracture, sustained in the November 2024. He was also noticed to have slurred speech and facial droop, LKW 11 PM on 01/23.. There was also concern of stroke and patient had CTA head and neck done. Stroke alert was called at 1228 NIH stroke scale was 2. Patient did not meet criteria for fibrinolytics. But later, it was suspected sepsis because of qSOFA 2/3, SARS 2/4 with suspicion of UTI. Sepsis protocol was followed with 30 cc of IV crystalloid fluid. Oncology Consultant consulted. (2) Urinary tract infection: PLAN: Patient had a urinary tract infection with E. coli and Pseudomonas that were both sensitive to Cipro back in November 21. Continue with ciprofloxacin for now. Prelim urine culture shows mixed gram-positive and negative organisms. (3) Encephalopathy acute: PLAN: Multifactorial due to sepsis, UTI and patient underlying Parkinson disease. Head CT showed no acute process CTA of the head and neck showed moderate atherosclerosic plaque and calcification with no hemodynamic significant stenosis in bilateral arteries of the head and neck. No LVO. Will hold off on gabapentin and [place]. Patient has tremors/shaking and probably might have some cognitive deficit/early dementia. PLAN: Plan Chronic conditions * DM2: Continue with glargine. Add sliding scale insulin. A1c 7.0. Glucose 66. Hold glimepiride and pioglitazone.Accu-Chek before meals and at bedtime with Humalog sliding scale coverage and hypoglycemia protocol. * Hypertension: BP control Continue with metoprolol succinate, losartan * Parkinson disease: Continue with carbidopa/levodopa. VTE prophylaxis with enoxaparin CODE STATUS: Per the assisted facility records. Patient is DNR Comfort Care arrest. Charges/Coding Visit Charges Inpatient E&M: 01285 Subs Hosp L3
[2025-01-25 08:55] LABS: Bedside Glucose 55 mg/dL (74-106)
[2025-01-25 08:55] LABS: Bedside Glucose 64 mg/dL (74-106)
[2025-01-25] MEDS: Insulin Glargine-YFGN 100 UNIT/ML Pen 15 UNIT SC (09:38)
[2025-01-25] MEDS: Metoprolol(XL)Succ 25 MG Tablet PO (09:38)
[2025-01-25] MEDS: Losartan Potassium 25 MG Tablet PO (09:38)
[2025-01-25] MEDS: Ciprofloxacin 500 MG Tablet PO ×2 (09:38→20:06)
[2025-01-25] MEDS: Glimepiride 4 MG Tablet PO (09:38)
[2025-01-25] MEDS: Enoxaparin 40 MG/0.4 ML Syringe SC (09:38)
[2025-01-25] MEDS: Pioglitazone Hydrochloride 45 MG Tablet PO (09:38)
[2025-01-25] MEDS: Famotidine 20 MG Tablet PO ×2 (09:38→20:06)
[2025-01-25] MEDS: Primidone 250 MG Tablet PO ×3 (09:38→16:44)
[2025-01-25] MEDS: DULoxetine Hcl 60 MG Capsule PO (09:38)
[2025-01-25 11:49] LABS: Bedside Glucose 103 mg/dL (74-106)
[2025-01-25] MEDS: Ipratropium/Albuterol Sulfate 3 ML AMPUL.NEB INHALATION ×2 (13:12→19:27)
[2025-01-25 17:03] LABS: Bedside Glucose 100 mg/dL (74-106)
[2025-01-25] MEDS: Budesonide Respules 0.5 MG/2 ML AMPUL.NEB. INHALATION (19:27)
[2025-01-25] MEDS: Atorvastatin Calcium 20 MG Tablet PO (20:07)
[2025-01-25] MEDS: DULoxetine Hcl 30 MG Capsule PO (20:10)
[2025-01-26] VITALS (10 sets, daily range): BP systolic 113–122; BP diastolic 59–76; PULSE 54–72; RESP 16–19; TEMP 36.3–36.6; O2SAT 95–98
[2025-01-26] MEDS: Ipratropium/Albuterol Sulfate 3 ML AMPUL.NEB INHALATION ×3 (00:10→22:13)
[2025-01-26] MEDS: Carbidopa/Levodopa 25/100 Tablet PO ×2 (06:22→16:46)
[2025-01-26 06:29] LABS: Absolute Lymphocyte Count 1.76 X10^3/uL (0.83-4.51); Absolute Neutrophil Count 2.3 X10^3/uL (2.0-7.7); Basophil# 0.02 X10^3/uL; Basophil% 0.4 % (0-1); Eosinophil# 0.08 X10^3/uL; Eosinophils% 1.7 % (0-5); Hematocrit 33.2 % (40-54); Hemoglobin 10.5 g/dL (13.0-16.5); Lymphocyte # 1.76 X10^3/ul (0.83-4.51); Lymphocyte % 37.1 % (19-41); Mean Corp Hgb Conc 31.6 g/dL (32-36); Mean Corpuscular Hgb 31.1 pg (27.0-32.0); Mean Corpuscular Volume 98.2 fL (80-94); Mean Platelet Vol. 10.5 fl (6.2-12.0); Monocyte% 12.7 % (0-10); NRBC Flagged by Analyzer 0 % (0-5); Neutrophil # 2.27 X10^3/uL (2.7-7.7); Neutrophil % 47.9 % (47-70); Platelet Count 183 K/mm3 (150-450); RBC Distribution Width CV 13.8 % (11.6-14.6); RBC Distribution Width SD 49.5 fl (35.1-43.9); Red Blood Count 3.38 M/mm3 (4.6-6.2); White Blood Count 4.7 K/mm3 (4.4-11.0)
[2025-01-26 06:45] LABS: Bedside Glucose 98 mg/dL (74-106)
[2025-01-26] MEDS: Budesonide Respules 0.5 MG/2 ML AMPUL.NEB. INHALATION ×2 (07:24→22:14)
[2025-01-26] MEDS: Metoprolol(XL)Succ 25 MG Tablet PO (08:09)
[2025-01-26] MEDS: Enoxaparin 40 MG/0.4 ML Syringe SC (08:09)
[2025-01-26] MEDS: Ciprofloxacin 500 MG Tablet PO ×2 (08:09→22:02)
[2025-01-26] MEDS: Famotidine 20 MG Tablet PO ×2 (08:09→22:03)
[2025-01-26] MEDS: Primidone 250 MG Tablet PO ×3 (08:09→16:46)
[2025-01-26] MEDS: DULoxetine Hcl 30 MG Capsule PO ×2 (08:10→22:02)
[2025-01-26] MEDS: Pioglitazone Hydrochloride 45 MG Tablet PO (08:10)
[2025-01-26] MEDS: Losartan Potassium 25 MG Tablet PO (08:10)
[2025-01-26 08:17] LABS: Anion Gap 11 (5-15); BUN 21 mg/dL (4-19); BUN/Creat Ratio 19.6 RATIO (10-20); Calcium 8.6 mg/dL (7.6-11.0); Carbon Dioxide 21.4 mmol/L (22.0-29.0); Chloride 103 mmol/L (96-108); Creatinine, Serum 1.05 mg/dL (0.70-1.20); EST Glomerular Filtration Rate 71 (>60); Estimated Creatinine Clearance 63.89 ml/min (50-250); Glucose 85 mg/dL (70-99); Potassium 4.2 mmol/L (3.3-5.1); Sodium Level 135 mmol/L (133-145)
[2025-01-26 08:18] LABS: Bedside Glucose 108 mg/dL (74-106)
--- NOTE | 2025-01-26 09:25 | PN.HOSP_ITS ---
Reason for Visit Reason for Visit: Diagnoses Sepsis, unspecified organism (01/24/25) Encephalopathy, unspecified (01/24/25) Urinary tract infection, site not specified (01/24/25) Objective Data Objective Data Vital Signs: Vital Signs Temp Pulse Resp BP Pulse Ox O2 Del Method O2 Flow Rate 97.7 F L 71 18 113/59 L 95 Room Air 2 01/26/25 02:00 01/26/25 08:09 01/26/25 07:20 01/26/25 02:00 01/26/25 07:20 01/26/25 07:20 01/24/25 12:38 FiO2 21 01/26/25 00:15 Oxygen Flow Rate (L/min) 2 Oxygen Delivery Method Room Air Weight: 232 lb 12.93 oz Body Mass Index (BMI) 35.2 Intake & Output: Intake and Output for Last 24 Hours 01/24/25 01/25/25 01/26/25 23:59 23:59 23:59 Intake Total 3700 / 3700 250 / 250 Output Total 850 / 850 2150 / 2650 1600 / 1600 Balance 2850 / 2850 -1900 / -2400 -1600 / -1600 Lab / Micro Data 01/26/25 05:07 01/26/25 05:07 Labs: Laboratory Results - last 24 hr 01/25/25 11:32: POC Glucose 103 01/25/25 16:42: POC Glucose 100 01/25/25 22:11: POC Glucose 108 H 01/26/25 05:07: WBC 4.7, RBC 3.38 L, Hgb 10.5 L, Hct 33.2 L, MCV 98.2 H, MCH 31.1, MCHC 31.6 L, RDW Std Deviation 49.5 H, RDW Coeff of Yara 13.8, Plt Count 183, MPV 10.5, Immature Gran % (Auto) 0.200, Neut % (Auto) 47.9, Lymph % (Auto) 37.1, [place] % (Auto) 12.7 H, Eos % (Auto) 1.7, Baso % (Auto) 0.4, Absolute Neuts (auto) 2.3, Absolute Lymphs (auto) 1.76, Nucleated RBC % 0, Sodium 135, Potassium 4.2, Chloride Direct 103, Carbon Dioxide 21.4 L, Anion Gap 11, BUN 21 H, Creatinine 1.05, Estim Creat Clear Calc 63.89, Est GFR (MDRD) Non-Af 71, BUN/Creatinine Ratio 19.6, Glucose 85, Calcium 8.6 01/26/25 06:20: POC Glucose 98 Micro: Microbiology 01/24/25 13:45 Urine, Catheterized Urine Culture - Preliminary Mixed Gram Pos & Gram Neg Org 01/24/25 13:05 Mucosa - Nose SARS-CoV-2, Influenza & RSV (PCR) - Final Physical Exam Narrative Seen and examined Patient found on the floor. He is awake and alert. When asked why he tried to move he wanted to go to chair. Denied hitting head. Was lifted back to the chair. patient was confused for 1 to 2 days prior to coming here. He also had 1 day of loose bowel movement about 3 times per day before admission. Denies any recent antibiotic intake or history of C. difficile. Denies blood or mucus. No fever. Physical exam General: Alert, Oriented x3, Cooperative HEENT: Atraumatic, PERRLA, EOMI, Normocephalic Oral: No Gingival or Mucosal Lesions/ Ulcerations Neck: Supple, No JVD, Negative Carotid Bruits Chest wall/Lungs: Right chest wall port. Air entry diminished in bilateral lung bases. Mild coarse crepitation lung base Cardiovascular: Regular rate, Regular Rhythm, CABG surgery. Abdomen: Bowel Sounds Present, Soft, Non Tender, Non-Distended : Urostomy with parastomal hernia. Had total cystectomy and prostatectomy Extremities: Mild right ankle edema, Capillary Refill Less than 3 Seconds Skin: No rashes, No breakdown Musculoskeletal: Recently ankle fracture with minimal tenderness. No Tenderness to Palpation of Joints or Extremities Neurological: Cranial nerves II-XII grossly intact, DTR 2+/4. No acute focal neurological deficit. Psych/Mental Status: Flat affect Assessment & Plan Assessment/Plan (1) Sepsis: PLAN: 84-year-old gentleman was admitted with confusion from the rehab center where he is recovering from ankle fracture, sustained in the November 2024. He was also noticed to have slurred speech and facial droop, LKW 11 PM on 01/23.. There was also concern of stroke and patient had CTA head and neck done. Stroke alert was called at 1228 NIH stroke scale was 2. Patient did not meet criteria for fibrinolytics. But later, it was suspected sepsis because of qSOFA 2/3, SARS 2/4 with suspicion of UTI. Sepsis protocol was followed with 30 cc of IV crystalloid fluid. Speed Belt Sander Tender consulted. 3: Sepsis is resolved BP consistently more than 110 mmHg. (2) Urinary tract infection: PLAN: Patient had a urinary tract infection with E. coli and Pseudomonas that were both sensitive to Cipro back in November 21. Continue with ciprofloxacin for now. Prelim urine culture shows mixed gram-positive and negative organisms. 3: Repeat urine culture and blood cultures are pending (3) Encephalopathy acute: PLAN: Multifactorial due to sepsis, UTI and patient underlying Parkinson disease. Head CT showed no acute process CTA of the head and neck showed moderate atherosclerosic plaque and calcification with no hemodynamic significant stenosis in bilateral arteries of the head and neck. No LVO. Will hold off on gabapentin and [place]. Patient has tremors/shaking and probably might have some cognitive deficit/early dementia. 01/26: Will get neurology consult. PLAN: Plan Chronic conditions * DM2: Continue with glargine. Add sliding scale insulin. A1c 7.0. Glucose 66. Hold glimepiride and pioglitazone.Accu-Chek before meals and at bedtime with Humalog sliding scale coverage and hypoglycemia protocol. * Hypertension: BP control Continue with metoprolol succinate, losartan * Parkinson disease: Continue with carbidopa/levodopa. VTE prophylaxis with enoxaparin CODE STATUS: Per the [facility] facility records. Patient is DNR Comfort Care arrest. Charges/Coding Visit Charges Inpatient E&M: 12865 Subs Hosp L3
[2025-01-26 11:28] LABS: Bedside Glucose 111 mg/dL (74-106)
--- NOTE | 2025-01-26 13:22 | CASEMGMT ---
Social Work SW met with pt and and introduced self and role of SW. Pt admitted from [facility] where he has been since an ankle fx at the end of November. Pt stating that he does not want to return and wants to go home at discharge. SW reviewed pt therapy notes from yesterday (30ft mod-max A x1) and expressed concerns for safety at home. Pt states she will take pt home but prefers pt return to SNF for continued therapy. Therapy to see pt today and SW will follow up for dc planning after that. SW assisted pt and pt's in completing living jimenez and health care POAs. Pt naming Kristy Cramer as HCPOA. Original given to pts and copy placed in pt chart. Plan: Return to [facility] vs home, pending continued therapy assessment EDMUND Casey
--- NOTE | 2025-01-26 14:09 | NURSING ---
Returned from OR
--- NOTE | 2025-01-26 15:01 | NURSING ---
Report called to [place] See on PCU
--- NOTE | 2025-01-26 15:51 | CASEMGMT ---
Handoff given to WOOL SPOTTER CM as pt trf'd floors.
--- NOTE | 2025-01-26 16:12 | CASEMGMT ---
Addendum entered by Doreen Ambrosio 01/27/25 10:33: Precert has been submitted. Doreen Ambrosio DC Planning Asst. Original Note: Discharge Planning Updates sent to [facility] with note to submit for precert if needed. Doreen Ambrosio DC Planning Asst.
--- NOTE | 2025-01-26 16:23 | CASEMGMT ---
Social Work SW spoke with therapist who is recommending continued skilled therapy in SNF. SW met with pt and and discussed pt activity with therapy today and recommendations for SNF. Pt and are agreeable that pt will return to [facility] upon discharge. DC first assistant manager updated and to send clinicals to [facility] and check on precert. Plan: Return to [facility], pending precert EDMUND Casey
[2025-01-26 17:27] LABS: Bedside Glucose 121 mg/dL (74-106)
[2025-01-26] MEDS: Atorvastatin Calcium 20 MG Tablet PO (22:03)
[2025-01-26 22:42] LABS: Bedside Glucose 107 mg/dL (74-106)
[2025-01-27] VITALS (8 sets, daily range): BP systolic 126–143; BP diastolic 62–110; PULSE 50–66; RESP 14–18; TEMP 36.2–37.1; O2SAT 94–98; BMI 38.1
[2025-01-27] MEDS: Carbidopa/Levodopa 25/100 Tablet PO ×2 (06:21→17:19)
[2025-01-27 06:27] LABS: Absolute Lymphocyte Count 1.64 X10^3/uL (0.83-4.51); Absolute Neutrophil Count 1.9 X10^3/uL (2.0-7.7); Basophil# 0.02 X10^3/uL; Basophil% 0.5 % (0-1); Eosinophil# 0.09 X10^3/uL; Eosinophils% 2.2 % (0-5); Hematocrit 32.1 % (40-54); Hemoglobin 10.6 g/dL (13.0-16.5); Lymphocyte # 1.64 X10^3/ul (0.83-4.51); Lymphocyte % 40.9 % (19-41); Mean Corpuscular Hgb 31.9 pg (27.0-32.0); Mean Corpuscular Volume 96.7 fL (80-94); Mean Platelet Vol. 10.3 fl (6.2-12.0); NRBC Flagged by Analyzer 0 % (0-5); Neutrophil # 1.85 X10^3/uL (2.7-7.7); Neutrophil % 46.2 % (47-70); Platelet Count 180 K/mm3 (150-450); RBC Distribution Width CV 13.6 % (11.6-14.6); RBC Distribution Width SD 48.5 fl (35.1-43.9); Red Blood Count 3.32 M/mm3 (4.6-6.2)
[2025-01-27 06:38] LABS: Anion Gap 10 (5-15); BUN 17 mg/dL (4-19); BUN/Creat Ratio 17.6 RATIO (10-20); Calcium 8.7 mg/dL (7.6-11.0); Chloride 105 mmol/L (96-108); Creatinine, Serum 0.99 mg/dL (0.70-1.20); EST Glomerular Filtration Rate 76 (>60); Estimated Creatinine Clearance 70.43 ml/min (50-250); Glucose 111 mg/dL (70-99); Sodium Level 137 mmol/L (133-145)
[2025-01-27 06:51] LABS: Bedside Glucose 121 mg/dL (74-106)
[2025-01-27] MEDS: Budesonide Respules 0.5 MG/2 ML AMPUL.NEB. INHALATION ×2 (07:25→19:11)
[2025-01-27] MEDS: Ipratropium/Albuterol Sulfate 3 ML AMPUL.NEB INHALATION ×2 (07:26→19:11)
--- NOTE | 2025-01-27 08:27 | WOUNDNOTE ---
Urostomy appliance leaking and was asked to change the appliance. removed the pouch. cleansed skin with soap and water. pat dry. stoma is pink and well budded. peristomal skin is intact. applied pts 1 piece flat Sharri appliance per request. pt tolerated well.
[2025-01-27] MEDS: Metoprolol(XL)Succ 25 MG Tablet PO (09:13)
[2025-01-27] MEDS: Famotidine 20 MG Tablet PO ×2 (09:14→20:55)
[2025-01-27] MEDS: DULoxetine Hcl 30 MG Capsule PO ×2 (09:14→20:55)
[2025-01-27] MEDS: Pioglitazone Hydrochloride 45 MG Tablet PO (09:14)
[2025-01-27] MEDS: Ciprofloxacin 500 MG Tablet PO (09:15)
[2025-01-27] MEDS: Losartan Potassium 25 MG Tablet PO (09:15)
[2025-01-27] MEDS: Enoxaparin 40 MG/0.4 ML Syringe SC (09:15)
[2025-01-27] MEDS: Primidone 250 MG Tablet PO ×3 (09:15→17:19)
[2025-01-27] MEDS: Insulin Glargine-YFGN 100 UNIT/ML Pen 10 UNIT SC (09:16)
[2025-01-27] MEDS: Insulin Lispro 100 UNIT/ML INSULN.PEN SC (11:55)
[2025-01-27 12:27] LABS: Bedside Glucose 185 mg/dL (74-106)
--- NOTE | 2025-01-27 12:33 | NEURO.CONS ---
Assessment and Plan: Neuro Assessment/Plan AKASH GREGORY is a 84 M with a past medical history of PD, being evaluated by Teleneurology for worsening tremors and new confusion. The tremors have gradually worsened over time and do not seem to be the result of his acute condition. As such, would not make changes to his medication regiment. On exam, he has no significant dyskinesias or rigidity or bradykinesia. The tremors are present but watched patient eat and he was largely able to finish lunch without significant difficulty. His mental status has also improved significantly but he is not returned to baseline. Concern for delirium is still high. Plan: - no further workup, continue home medications at this time. - followup with Neurologist outpatient I personally attended this patient and spent a total time of 45minutes evaluating this patient including clinical assessment, review of chart, medical history imaging, and determining appropriate treatment and workup. HPI Consult Data Date of Consult: 01/27/25 HPI Narrative HPI Narrative: PLAN: 84-year-old gentleman was admitted with confusion from the rehab center where he is recovering from ankle fracture, sustained in the November 2024. He was also noticed to have slurred speech and facial droop, LKW 11 PM on 01/23.. There was also concern of stroke and patient had CTA head and neck done. Stroke alert was called at 1228 NIH stroke scale was 2. Patient did not meet criteria for fibrinolytics. But later, it was suspected sepsis because of qSOFA 2/, SARS / with suspicion of UTI. Sepsis protocol was followed with 30 cc of IV crystalloid fluid. [employer] Reading Teacher consulted. 01/26: Sepsis is resolved BP consistently more than 110 mmHg. Pti s doing well today, per , patient is largely back to normal, a lot better than he was on Sunday. Memory is still a little off. The shaking and tremors have worsened since coming to the neurologist and seems more untable. Has a formal dx of PD. Pt currenlty on primidone TID, carbidopa-levodopa 100 BID during day the 200mg in evening (8am, noon, 6pm). His primary issue with PD was tremors on the L side. Since August the tremors have gotten worse. In August they increased the PM dose. No hallucinations, no vivid nightmares, no dyskinesias. The sinemet never fully controlled the tremors, and he is having more difficulty eating and feeding himself. Has had 3-4 falls in the last 3 months. Occasionally his L leg gives out on him, never passes out with the falls. Does not need a walker or a cane to walk at home but he has them at home. Tremors have not worsened since coming to the hospital. Last bowel movement was today, not feeling constipation. [facility] Medical History Right foot sprain Right ankle sprain Fracture of fibula, right, closed Obesity (BMI 30-39.9) Chronic back pain Osteoarthritis DDD (degenerative disc disease) Lumbar spondylosis MSSA bacteremia Acute hyperglycemia COPD (chronic obstructive pulmonary disease) Blood bacterial culture positive Arthritis of sacroiliac joint Candidal dermatitis Candidiasis Sleep apnea Kidney disease Smoker H/O cardiovascular stress test History of left heart catheterization (~02/24/10) Cardiology follow-up encounter Port-A-Cath in place (~01/24/21) History of blood transfusion bladder instill antica agent Low back pain Primary hypertension Emphysema, unspecified Congenital stenosis and stricture of esophagus Cardiac murmur, unspecified Atherosclerotic heart disease Anemia Acute kidney failure, unspecified Gross hematuria BPH with obstruction/lower urinary tract symptoms Bladder cancer Nicotine dependence, cigarettes, uncomplicated JOHN (obstructive sleep apnea) COPD (chronic obstructive pulmonary disease) Acute CT, inferior wall CKD stage 3 Diabetes mellitus Hyperlipidemia Pulmonary HTN CAD (coronary artery disease) Diabetic neuropathy Mitral valve regurgitation Tricuspid valve regurgitation B12 deficiency Parkinson disease Pneumonia Tobacco use disorder, continuous Obesity Home Medications ?Medication ?Instructions ?Recorded ?Last Taken ?Type duloxetine 60 mg capsule,delayed 60 mg PO BID DEPRESSION 03/12/18 11/28/24 History release omega-3 fatty acids 1,000 mg 1,000 mg PO BID SUPPLEMENT 03/12/18 Unknown History capsule fenofibrate 160 mg tablet 160 mg PO DAILY CHOLESTEROL 01/14/21 11/27/24 History glimepiride 4 mg tablet 4 mg PO DAILY DIABETIC 01/14/21 11/28/24 History pioglitazone 45 mg tablet (Actos) 45 mg PO DAILY DIABETES 01/14/21 Unknown History primidone 250 mg tablet 250 mg PO TID PARKINSONS 01/14/21 11/28/24 History simvastatin 40 mg tablet 40 mg PO QHS CHOLESTEROL 01/14/21 11/27/24 History hydrocodone-acetaminophen 5-325mg 1 tab PO Q12H PRN Pain 03/23/21 Unknown History 5mg-325mg ipratropium 0.5 mg-albuterol 3 mg 3 ml inhalation Q6H COPD J44.9 07/03/22 Unknown Rx (2.5 mg base)/3 mL nebulization #180 mL soln carbidopa 25 mg-levodopa 100 mg 1 tab PO BID PARKINSON'S 10/31/23 11/28/24 History tablet losartan 25 mg tablet 25 mg PO QDAY HTN 04/01/24 11/28/24 History insulin glargine 100 unit/mL (3 20 unit subcut .Daily Diabetes 10/05/24 Unknown History mL) subcutaneous pen (Lantus Solostar U-100 Insulin) budesonide 160 mcg-glycopyr 9 2 inh inhalation BID WHEEZING 10/16/24 11/28/24 Rx mcg-formot 4.8 mcg/actuation HFA #10.7 grams inhaler ([employer]) [facility] 11/21/24 Unknown History Verio test strips) blood-glucose meter (OneTouch 11/21/24 Unknown History Verio Flex Meter) gabapentin 600 mg tablet 600 mg PO TID NEUROPATHY 11/21/24 11/28/24 History lancets 33 gauge (OneTouch Delica 11/21/24 Unknown History Plus Lancet) bisacodyl 5 mg tablet,delayed 5 mg PO ONCE 01/19/25 Unknown History release famotidine 20 mg tablet 20 mg PO BID 01/19/25 Unknown History metoprolol succinate 25 mg 25 mg PO QHS 01/19/25 Unknown History tablet,extended release 24 hr polyethylene glycol 3350 17 17 g PO QHS 01/19/25 Unknown History gram/dose oral powder (Miralax) cholecalciferol (vitamin D3) 1,250 1,250 mcg PO QMONTH 01/24/25 Unknown History mcg (50,000 unit) capsule duloxetine 60 mg capsule,delayed 60 mg PO BID 01/24/25 Unknown History release (Cymbalta) Allergy/AdvReac Type Severity Reaction Status Date / Time cefepime Allergy Severe Anaphylaxis Verified 01/19/25 10:05 cefazolin Allergy Intermediate Hives Verified 01/19/25 10:05 Family History Mother Ovarian cancer Father Heart disease Brother Leukemia Surgical History Status post radical cystoprostatectomy Hx of transurethral resection of prostate (~01/05/21) History of quadruple bypass History of hand surgery History of ankle surgery Hx of cystoscopy S/P TURP Previous back surgery S/P CABG x 4 Social History current occupational status: retired Smoking Status: Former smoker quit date: 12/27/20 alcohol intake: never substance use type: does not use caffeine: Yes Type: coffee Number of servings: 1 eating out: rarely or never Vital Signs Vital Signs Vital Signs: 01/26/25 15:34 01/26/25 22:00 01/26/25 22:00 Temperature 97.4 F L Temperature Source Temporal Pulse Rate 54 L Pulse Strength Normal (2+) Respiratory Rate 18 Respiratory Effort Normal Respiratory Depth Normal Respiratory Pattern Normal Blood Pressure 113/76 Blood Pressure Mean 88 Blood Pressure Source Monitor Blood Pressure Position Semi-Fowlers Blood Pressure Location Left Arm Pulse Ox 98 Oxygen Delivery Method Room Air Room Air 01/26/25 22:14 01/27/25 04:00 01/27/25 04:30 Temperature 98.8 F Temperature Source Oral Pulse Rate 54 L 54 L Pulse Strength Respiratory Rate 18 16 Respiratory Effort Normal Respiratory Depth Normal Respiratory Pattern Normal Normal Blood Pressure 129/62 H Blood Pressure Mean 84 Blood Pressure Source Blood Pressure Position Blood Pressure Location Pulse Ox 98 Oxygen Delivery Method Room Air Room Air 01/27/25 07:42 01/27/25 07:42 01/27/25 08:30 Temperature Temperature Source Pulse Rate 51 L Pulse Strength Respiratory Rate 14 Respiratory Effort Normal Respiratory Depth Respiratory Pattern Normal Blood Pressure Blood Pressure Mean Blood Pressure Source Blood Pressure Position Blood Pressure Location Pulse Ox 96 97 Oxygen Delivery Method Room Air Room Air 01/27/25 09:10 01/27/25 09:13 01/27/25 10:31 Temperature 98.1 F Temperature Source Oral Pulse Rate 64 66 Pulse Strength Normal (2+) Respiratory Rate 16 Respiratory Effort Respiratory Depth Respiratory Pattern Blood Pressure 143/66 H Blood Pressure Mean 91 Blood Pressure Source Blood Pressure Position Blood Pressure Location Pulse Ox 97 Oxygen Delivery Method Room Air Weight Weight: 113.8 kg Body Mass Index (BMI) 38.1 Physical Exam Narrative -? General: Laying comfortably in bed; in no acute distress. -? HENT: Normal oropharynx and mucosa. Normal external appearance of ears and nose. Exophthalmos. -? Neck: Supple, no pain or tenderness -? CV:? No peripheral edema. -? Pulmonary:? Normal respiratory effort. -? Ext: No cyanosis, edema, or deformity -? Skin: No rash. Normal palpation of skin.? -? Musculoskeletal: full range of motion; no joint tenderness. Normal digits and nails by inspection. No clubbing. -? NEURO: -? Mental Status: The patient was alert and oriented to time, place, and person. Normal recent/remote memory, concentration, and general fund of knowledge. hypomimea noted -? Language: speech is clear.? Naming, repetition, fluency, and comprehension intact. -? Cranial Nerves: EOMI, visual cisneros full, no facial asymmetry, facial sensation intact, hearing intact, tongue midline, no evidence of atrophy or fibrillations. As performed by the nurse/PATTI Sternocleidomastoid and trapezius were equally strong. Soft palate raises equally, no uvular deviations -? Motor: normal bulk, tone, and strength throughout. No pronator drift or satelliting. Upper and lower extremities equal bilaterally. -?Detailed strength exam as performed by the nurse/PATTI and witnessed by the physician: R L SA 5 5 EE EF WE WF Forwarder Operator 5 5 HF 5 3 KE KF 5 5 DF PF no dyskinesias noted ASHLEY intact b/l in UE No rigidity noted in the b/l UE l -? Sensation- Intact to light touch bilaterally -? Coordination: tremore leading to DDK on the b/l UE. -? Gait- deferred Lab / Micro Data 01/27/25 05:35 01/27/25 05:35 Labs: Laboratory Results - last 24 hr 01/26/25 16:43: POC Glucose 121 H 01/26/25 22:01: POC Glucose 107 H 01/27/25 05:35: WBC 4.0 L, RBC 3.32 L, Hgb 10.6 L, Hct 32.1 L, MCV 96.7 H, MCH 31.9, MCHC 33.0, RDW Std Deviation 48.5 H, RDW Coeff of Yara 13.6, Plt Count 180, MPV 10.3, Immature Gran % (Auto) 0.200, Neut % (Auto) 46.2 L, Lymph % (Auto) 40.9, [place] % (Auto) 10.0, Eos % (Auto) 2.2, Baso % (Auto) 0.5, Absolute Neuts (auto) 1.9 L, Absolute Lymphs (auto) 1.64, Nucleated RBC % 0, Sodium 137, Potassium 4.0, Chloride Direct 105, Carbon Dioxide 22.0, Anion Gap 10, BUN 17, Creatinine 0.99, Estim Creat Clear Calc 70.43, Est GFR (MDRD) Non-Af 76, BUN/Creatinine Ratio 17.6, Glucose 111 H, Calcium 8.7 01/27/25 06:21: POC Glucose 121 H 01/27/25 11:48: POC Glucose 185 H Micro: Microbiology 01/24/25 16:45 Blood Culture (Wb) - Anticubital Left Blood Culture - Preliminary No growth in 48 hours. 01/24/25 16:45 Blood Culture (Wb) - Anticubital Left Blood Culture - Preliminary No growth in 48 hours. 01/24/25 13:45 Urine, Catheterized Urine Culture - Preliminary Escherichia coli Pseudomonas aeruginosa Corynebacterium striatum Enterococcus faecalis GNR lactose forensic sergeant 01/25/25 10:35 Urine, Random Urine Culture - Preliminary Escherichia coli Active Medications Active Medications Active Medications: Current Medications Generic Name Dose Route Start Last Admin Trade Name Freq PRN Reason Stop Dose Admin Acetaminophen 650 mg 01/24/25 16:22 Acetaminophen 325 Mg Tablet PO Q6H PRN PRN Pain 1-10 Or Fever>100.7 Albuterol/Ipratropium 3 ml 01/24/25 16:22 01/27/25 07:26 Ipratropium/Albuterol Sulfate 3 Ml Ampul.Neb INHALATION 3 ml Q6H JANET Administration Atorvastatin Calcium 20 mg 01/24/25 22:00 01/26/25 22:03 Atorvastatin Calcium 20 Mg Tablet PO 20 mg QHS JANET Administration Bisacodyl 5 mg 01/24/25 16:22 Bisacodyl 5 Mg Tablet PO DAILY PRN PRN Constipation Budesonide 0.5 mg 01/24/25 17:00 01/27/25 07:25 Budesonide Respules 0.5 Mg/2 Ml Ampul.Neb. INHALATION 0.5 mg Q12H.RT JANET Administration Carbidopa/Levodopa 1 tablet 01/24/25 17:00 01/27/25 06:21 Carbidopa/Levodopa 25/100 Tablet PO 1 tablet BIDAC JANET Administration Ciprofloxacin HCl 500 mg 01/24/25 22:00 01/27/25 09:15 Ciprofloxacin 500 Mg Tablet PO 01/31/25 22:01 500 mg BID JANET Administration Duloxetine HCl 30 mg 01/25/25 22:00 01/27/25 09:14 Duloxetine Hcl 30 Mg Capsule PO 30 mg BID JANET Administration Enoxaparin Sodium 40 mg 01/25/25 10:00 01/27/25 09:15 Enoxaparin 40 Mg/0.4 Ml Syringe SC 40 mg DAILY JANET Administration Famotidine 20 mg 01/24/25 22:00 01/27/25 09:14 Famotidine 20 Mg Tablet PO 20 mg BID JANET Administration Glucagon 1 mg 01/24/25 16:22 Glucagon 1 Mg/Ml Syringe IM X1 PRN HYPOGLYCEMIA Protocol Dextrose 250 mls @ 0 mls/hr 01/24/25 16:22 01/25/25 08:35 Dextrose 10%-Water IV Infused .Q0M PRN Infusion HYPOGLYCEMIA Protocol As Directed Sodium Chloride 100 mls @ 15 mls/hr 01/24/25 16:51 IV .Q6H40M PRN Saline Flush Sodium Chloride 100 mls @ 15 mls/hr 01/24/25 16:51 IV .Q6H40M PRN Additional IVPB Infusion Insulin Glargine 10 unit 01/26/25 10:00 01/27/25 09:16 Insulin Glargine-Yfgn 100 Unit/Ml Pen SC 10 unit DAILY JANET Administration Insulin Human Lispro 0 unit 01/24/25 16:22 01/27/25 11:55 Insulin Lispro 100 Unit/Ml Insuln.Pen SC 1 units ACHS JANET Administration Protocol Losartan Potassium 25 mg 01/25/25 10:00 01/27/25 09:15 Losartan Potassium 25 Mg Tablet PO 25 mg DAILY JANET Administration Protocol Metoprolol Succinate 25 mg 01/25/25 10:00 01/27/25 09:13 Metoprolol(Xl)Succ 25 Mg Tablet PO 25 mg DAILY JANET Administration Protocol Ondansetron HCl 4 mg 01/24/25 16:22 Ondansetron 4 Mg/2 Ml Vial IV Q8H PRN PRN NAUSEA/VOMITING Pioglitazone HCl 45 mg 01/25/25 10:00 01/27/25 09:14 Pioglitazone Hydrochloride 45 Mg Tablet PO 45 mg DAILY JANET Administration Polyethylene Glycol 17 gm 01/25/25 10:00 01/27/25 09:16 Polyethylene Glycol 3350 17 Gm Packet PO Not Given DAILY JANET Primidone 250 mg 01/24/25 17:00 01/27/25 09:15 Primidone 250 Mg Tablet PO 250 mg TIDCM JANET Administration Sodium Chloride 10 - 40 ml 01/24/25 16:51 0.9% Saline Lock 10 Ml Syringe IV UD PRN SALINE FLUSH
--- NOTE | 2025-01-27 16:20 | PN.HOSP_ITS ---
Reason for Visit Reason for Visit: Diagnoses Sepsis, unspecified organism (01/24/25) Encephalopathy, unspecified (01/24/25) Urinary tract infection, site not specified (01/24/25) Objective Data Objective Data Vital Signs: Vital Signs Temp Pulse Resp BP Pulse Ox O2 Del Method O2 Flow Rate 98.1 F 66 16 143/66 H 97 Room Air 2 01/27/25 10:31 01/27/25 10:31 01/27/25 10:31 01/27/25 10:31 01/27/25 10:31 01/27/25 10:31 01/24/25 12:38 FiO2 21 01/26/25 00:15 Oxygen Flow Rate (L/min) 2 Oxygen Delivery Method Room Air Weight: 250 lb 14.177 oz Body Mass Index (BMI) 38.1 Intake & Output: Intake and Output for Last 24 Hours 01/25/25 01/26/25 01/27/25 23:59 23:59 23:59 Intake Total 250 / 250 860 / 980 240 / 240 Output Total 2150 / 2650 2350 / 2350 1000 / 1000 Balance -1900 / -2400 -1490 / -1370 -760 / -760 Lab / Micro Data 01/27/25 05:35 01/27/25 05:35 Labs: Laboratory Results - last 24 hr 01/26/25 16:43: POC Glucose 121 H 01/26/25 22:01: POC Glucose 107 H 01/27/25 05:35: WBC 4.0 L, RBC 3.32 L, Hgb 10.6 L, Hct 32.1 L, MCV 96.7 H, MCH 31.9, MCHC 33.0, RDW Std Deviation 48.5 H, RDW Coeff of Yara 13.6, Plt Count 180, MPV 10.3, Immature Gran % (Auto) 0.200, Neut % (Auto) 46.2 L, Lymph % (Auto) 40.9, Brule % (Auto) 10.0, Eos % (Auto) 2.2, Baso % (Auto) 0.5, Absolute Neuts (auto) 1.9 L, Absolute Lymphs (auto) 1.64, Nucleated RBC % 0, Sodium 137, Potassium 4.0, Chloride Direct 105, Carbon Dioxide 22.0, Anion Gap 10, BUN 17, Creatinine 0.99, Estim Creat Clear Calc 70.43, Est GFR (MDRD) Non-Af 76, BUN/Creatinine Ratio 17.6, Glucose 111 H, Calcium 8.7 01/27/25 06:21: POC Glucose 121 H 01/27/25 11:48: POC Glucose 185 H Micro: Microbiology 01/24/25 16:45 Blood Culture (Wb) - Anticubital Left Blood Culture - Preliminary No growth in 48 hours. 01/24/25 16:45 Blood Culture (Wb) - Anticubital Left Blood Culture - Preliminary No growth in 48 hours. 01/24/25 13:45 Urine, Catheterized Urine Culture - Preliminary Escherichia coli Pseudomonas aeruginosa Corynebacterium striatum Enterococcus faecalis GNR lactose pyrotechnic assembler 01/25/25 10:35 Urine, Random Urine Culture - Preliminary Escherichia coli 01/24/25 13:05 Mucosa - Nose SARS-CoV-2, Influenza & RSV (PCR) - Final Physical Exam Narrative Seen and examined Discussed with the patient's . He is not doing well and needs 2 people to make a stand up. Pre-CERT pending. Yesterday, patient found on the floor. He is awake and alert. When asked why he tried to move he wanted to go to chair. Denied hitting head. Was lifted back to the chair. patient was confused for 1 to 2 days prior to coming here. He also had 1 day of loose bowel movement about 3 times per day before admission. Denies any recent antibiotic intake or history of C. difficile. Denies blood or mucus. No fever. Physical exam General: Alert, Oriented x3, Cooperative HEENT: Atraumatic, PERRLA, EOMI, Normocephalic Oral: No Gingival or Mucosal Lesions/ Ulcerations Neck: Supple, No JVD, Negative Carotid Bruits. Chest wall/Lungs: Right chest wall port. Air entry diminished in bilateral lung bases. Lungs more clear now Cardiovascular: Regular rate, Regular Rhythm, CABG surgery. 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 Extremities: Mild right ankle edema, Capillary Refill Less than 3 Seconds Skin: No rashes, No breakdown Musculoskeletal: Recently ankle fracture with minimal tenderness. No Tenderness to Palpation of Joints or Extremities Neurological: Cranial nerves II-XII grossly intact, DTR 2+/4. No acute focal neurological deficit. Psych/Mental Status: Flat affect Assessment & Plan Assessment/Plan (1) Sepsis: PLAN: 84-year-old gentleman was admitted with confusion from the rehab center where he is recovering from ankle fracture, sustained in the November 2024. He was also noticed to have slurred speech and facial droop, LKW 11 PM on 01/23.. There was also concern of stroke and patient had CTA head and neck done. Stroke alert was called at 1228 NIH stroke scale was 2. Patient did not meet criteria for fibrinolytics. But later, it was suspected sepsis because of qSOFA 2, SARS 12/30 with suspicion of UTI. Sepsis protocol was followed with 30 cc of IV crystalloid fluid. Automobile Body Worker consulted. 3: Sepsis is resolved BP consistently more than 110 mmHg. 3: PT and OT. Blood pressure is normal. Pulse ox 97% on room air (2) Urinary tract infection: PLAN: Patient had a urinary tract infection with E. coli and Pseudomonas that were both sensitive to Cipro back in November 21. Continue with ciprofloxacin for now. Prelim urine culture shows mixed gram-positive and negative organisms. 3: Repeat urine culture and blood cultures are pending 3: Urine culture shows E. coli ESBL negative more than 100,000 colonies. Urine culture shows E. coli, patient has hives and anaphylaxis with cefepime and E. coli's restaurant to fluoroquinolones. Started on Bactrim DS. Losartan on hold. (3) Encephalopathy acute: PLAN: Multifactorial due to sepsis, UTI and patient underlying Parkinson disease. Head CT showed no acute process CTA of the head and neck showed moderate atherosclerosic plaque and calcification with no hemodynamic significant stenosis in bilateral arteries of the head and neck. No LVO. Will hold off on gabapentin and [place]. Patient has tremors/shaking and probably might have some cognitive deficit/early dementia. 3: Will get neurology consult. PLAN: Plan Chronic conditions * DM2: Continue with glargine. Add sliding scale insulin. A1c 7.0. Glucose 66. Hold glimepiride and pioglitazone.Accu-Chek before meals and at bedtime with Humalog sliding scale coverage and hypoglycemia protocol. * Hypertension: BP control Continue with metoprolol succinate, losartan * Parkinson disease: Continue with carbidopa/levodopa. VTE prophylaxis with enoxaparin CODE STATUS: [facility] records. Patient is DNR Comfort Care arrest. Charges/Coding Visit Charges Inpatient E&M: 90952 Subs Hosp L2
[2025-01-27] MEDS: Smz/Tmp Ds Tablet 1 TABLET PO (17:19)
[2025-01-27 17:40] LABS: Bedside Glucose 117 mg/dL (74-106)
[2025-01-27] MEDS: Atorvastatin Calcium 20 MG Tablet PO (20:55)
[2025-01-27 21:16] LABS: Bedside Glucose 132 mg/dL (74-106)
[2025-01-28 02:30] VITALS: BMI 36.7
[2025-01-28 03:00] VITALS: BP 129/56; PULSE 52; RESP 18; TEMP 35.8; O2SAT 94
[2025-01-28 06:24] LABS: Absolute Lymphocyte Count 1.79 X10^3/uL (0.83-4.51); Absolute Neutrophil Count 1.5 X10^3/uL (2.0-7.7); Basophil# 0.02 X10^3/uL; Basophil% 0.5 % (0-1); Eosinophils% 2.7 % (0-5); Hematocrit 32.9 % (40-54); Hemoglobin 10.7 g/dL (13.0-16.5); Lymphocyte # 1.79 X10^3/ul (0.83-4.51); Lymphocyte % 47.6 % (19-41); Mean Corp Hgb Conc 32.5 g/dL (32-36); Mean Corpuscular Hgb 31.3 pg (27.0-32.0); Mean Corpuscular Volume 96.2 fL (80-94); Mean Platelet Vol. 10.2 fl (6.2-12.0); Monocyte# 0.36 X10^3/uL; Monocyte% 9.6 % (0-10); NRBC Flagged by Analyzer 0 % (0-5); Neutrophil # 1.48 X10^3/uL (2.7-7.7); Neutrophil % 39.3 % (47-70); Platelet Count 176 K/mm3 (150-450); RBC Distribution Width CV 13.7 % (11.6-14.6); RBC Distribution Width SD 48.5 fl (35.1-43.9); Red Blood Count 3.42 M/mm3 (4.6-6.2); White Blood Count 3.8 K/mm3 (4.4-11.0)
[2025-01-28] MEDS: Carbidopa/Levodopa 25/100 Tablet PO (06:38)
[2025-01-28 06:39] LABS: Bedside Glucose 107 mg/dL (74-106)
[2025-01-28 07:39] VITALS: PULSE 56; RESP 20; O2SAT 96
[2025-01-28] MEDS: Budesonide Respules 0.5 MG/2 ML AMPUL.NEB. INHALATION (07:39)
[2025-01-28] MEDS: Ipratropium/Albuterol Sulfate 3 ML AMPUL.NEB INHALATION (07:39)
[2025-01-28 08:08] VITALS: BP 132/54; PULSE 62
[2025-01-28] MEDS: Pioglitazone Hydrochloride 45 MG Tablet PO (08:08)
[2025-01-28] MEDS: Metoprolol(XL)Succ 25 MG Tablet PO (08:08)
[2025-01-28] MEDS: Polyethylene Glycol 3350 17 GM PACKET PO (08:08)
[2025-01-28] MEDS: Enoxaparin 40 MG/0.4 ML Syringe SC (08:08)
[2025-01-28] MEDS: Famotidine 20 MG Tablet PO (08:08)
[2025-01-28] MEDS: Primidone 250 MG Tablet PO ×2 (08:09→12:11)
[2025-01-28] MEDS: DULoxetine Hcl 30 MG Capsule PO (08:09)
[2025-01-28] MEDS: Smz/Tmp Ds Tablet 1 TABLET PO (08:09)
[2025-01-28] MEDS: Insulin Glargine-YFGN 100 UNIT/ML Pen 10 UNIT SC (08:13)
[2025-01-28 08:19] VITALS: BP 132/54; PULSE 62; RESP 16; TEMP 36.6; O2SAT 94
[2025-01-28 09:33] VITALS: BP 132/54; PULSE 62; RESP 16; TEMP 36.6; O2SAT 94
--- NOTE | 2025-01-28 10:08 | TREXTCAR_ITS ---
Diet Diet Order/Speech Therapy: 01/24/25 16:22 Diet: Consistent Carb - Calorie Controlled Food consistency:: Regular Liquid Consistency:: Regular/Thin Dietary Modifications:: Cardiac / Heart Healthy How many daily calories?: 2000 calorie Routine Orders/Code Status Suppository Type: Dulcolax 10mg Suppository Frequency: Daily PRN Routine Lab Work: BMP (In 1 week as patient is on Bactrim DS) DC O2, CPAP, BIPAP needs Home O2 Discharge instructions: No Therapies Extremity Affected:: Bilateral Lower Physical Therapy: Eval and Treat Occupational Therapy: Eval and Treat Speech Therapy: Eval and Treat Problem/Diagnosis (1) Sepsis: Status: Acute Code(s): A41.9 - Sepsis, unspecified organism Plan: 84-year-old gentleman was admitted with confusion from the rehab center where he is recovering from ankle fracture, sustained in the November 2024. He was also noticed to have slurred speech and facial droop, LKW 11 PM on 01/23.. There was also concern of stroke and patient had CTA head and neck done. Stroke alert was called at 1228 NIH stroke scale was 2. Patient did not meet criteria for fibrinolytics. But later, it was suspected sepsis because of qSOFA 2/3, SARS 2/4 with suspicion of UTI. Sepsis protocol was followed with 30 cc of IV crystalloid fluid. Inten sivist consulted. 3: Sepsis is resolved BP consistently more than 110 mmHg. /4: PT and OT. Blood pressure is normal. Pulse ox 97% on room air (2) Urinary tract infection: Status: Acute Code(s): N39.0 - Urinary tract infection, site not specified Plan: Patient had a urinary tract infection with E. coli and Pseudomonas that were both sensitive to Cipro back in November 21. Continue with ciprofloxacin for now. Prelim urine culture shows mixed gram-positive and negative organisms. 3: Repeat urine culture and blood cultures are pending 3: Urine culture shows E. coli ESBL negative more than 100,000 colonies. Urine culture shows E. coli, patient has hives and anaphylaxis with cefepime and E. coli's restaurant to fluoroquinolones. Started on Bactrim DS. Losartan on hold. (3) Encephalopathy acute: Status: Acute Code(s): G93.40 - Encephalopathy, unspecified Plan: Multifactorial due to sepsis, UTI and patient underlying Parkinson disease. Head CT showed no acute process CTA of the head and neck showed moderate atherosclerosic plaque and calcification with no hemodynamic significant stenosis in bilateral arteries of the head and neck. No LVO. Will hold off on gabapentin and [place]. Patient has tremors/shaking and probably might have some cognitive deficit/early dementia. 01/26: Will get neurology consult. Plan Chronic conditions * DM2: Continue with glargine. Add sliding scale insulin. A1c 7.0. Glucose 66. Hold glimepiride and pioglitazone.Accu-Chek before meals and at bedtime with Humalog sliding scale coverage and hypoglycemia protocol. * Hypertension: BP control Continue with metoprolol succinate, losartan * Parkinson disease: Continue with carbidopa/levodopa. VTE prophylaxis with enoxaparin CODE STATUS: Per the [facility] facility records. Patient is DNR Comfort Care arrest. Allergies/Procedures Done in Hospital Allergies cefepime Allergy (Severe, Verified 01/19/25 10:05) Anaphylaxis cefazolin Allergy (Intermediate, Verified 01/19/25 10:05) Hives Type of Care/Length of Stay Estimated LOS: Convalescent Care Less Than 30 days Type of Care Needed: Skilled Rehab Potential: Good Prognosis: Good Additional Orders/Day of Discharge Day of Discharge: 01/28/25 Dietary and Speech Recommendations Dietitian Recommendations/Changes: Will adjust diet to 2000 miguelangel Consistent CHO/ Cardiac d/t pmhx Will follow and monitor for changes in pt nutritional status and make additional rec/provide diet education as indicated. Discharge Plan Admission Admit Date/Time: 01/24/25 15:25 Primary Reason for Your Visit: E. coli UTI. Sepsis due to UTI. Encephalopathy Attending Provider: Oswaldo House Primary Care Provider: Ruben Angela WEB CONTENT COORDINATOR Consulting Providers: Jorge Guadarrama; Paulo Wolf; Goran Woodson; Conrad Thompson; Jesus Estes; Rudolph Nichols; Devaughn Mercado; Ralph Jefferson; Lori Us; Josué Collazo; Rojas Redd; Yakov Charles; Shirley Falcon; Quiana Nolan; Shirley Dale; Homer,Chaparro; Stefan Manuel; Ventura Smith; Nikko Alanis; Kalie Nuñez; Nydia Palomares; Adebayo Medina; Flo Jain; Manjinder Balderas Discharge Orders/Prescriptions Prescriptions: New acetaminophen 325 mg Tablet 650 mg PO Q6H PRN PRN (Reason: Pain 1-10 Or Fever>100.7) Qty: 0 0RF sulfamethoxazole-trimethoprim 800-160 mg Tablet 1 tab PO BIDCM 6 Days Qty: 12 0RF Continued omega-3 fatty acids 1,000 mg capsule 1,000 mg PO BID duloxetine 60 mg capsule,delayed release(DR/EC) 60 mg PO BID Patient Comments: Duplicate hydrocodone-acetaminophen 5-325 mg tablet 1 tab PO Q12H PRN (Reason: Pain) carbidopa-levodopa 25-100 mg tablet 1 tab PO BID Breztri Aerosphere 160-9-4.8 mcg/actuation HFA aerosol inhaler 2 inh inhalation BID Qty: 10.7 6RF bisacodyl 5 mg tablet,delayed release (DR/EC) 5 mg PO ONCE famotidine 20 mg tablet 20 mg PO BID metoprolol succinate 25 mg tablet extended release 24 hr 25 mg PO QHS polyethylene glycol 3350 [Miralax] 17 gram/dose powder 17 g PO QHS pioglitazone [Actos] 45 MG tablet 45 mg PO DAILY simvastatin 40 MG tablet 40 mg PO QHS primidone 250 MG tablet 250 mg PO TID glimepiride 4 MG tablet 4 mg PO DAILY fenofibrate 160 MG tablet 160 mg PO DAILY insulin glargine [Lantus Solostar U-100 Insulin] 100 unit/mL (3 mL) insulin pen 20 unit subcut .Daily Patient Comments: 15 units daily gabapentin 600 mg tablet 600 mg PO TID (DME) blood-glucose meter [OneTouch Verio Flex meter] [facility] [place] MISCELLANEOUS UD (DME) OneTouch Verio test strips Strip MISCELLANEOUS TID (DME) lancets [OneTouch Delica Plus Lancet] 33 gauge [facility] [place] MISCELLANEOUS TID cholecalciferol (vitamin D3) 1,250 mcg (50,000 unit) capsule 1,250 mcg PO QMONTH duloxetine [Cymbalta] 60 mg capsule,delayed release(DR/EC) 60 mg PO BID ipratropium-albuterol 0.5 mg-3 mg(2.5 mg base)/3 mL solution for nebulization 3 ml INHALATION Q6H Qty: 180 11RF Held losartan 25 mg tablet 25 mg PO QDAY Hold Instructions: Hold it while patient is taking Bactrim DS for UTI. Referrals / Follow Up: Ruben Angela WEB CONTENT COORDINATOR, WEB CONTENT COORDINATOR-C [Primary Care Provider] -
[2025-01-28] MEDS: Insulin Lispro 100 UNIT/ML INSULN.PEN SC (12:11)
[2025-01-28 12:13] LABS: Bedside Glucose 177 mg/dL (74-106)
[2025-01-28 12:14] VITALS: BP 110/56; PULSE 52; RESP 16; TEMP 36.6; O2SAT 97
--- NOTE | 2025-01-28 13:16 | PCM.DC.SUM ---
Providers Date of Admission: 01/24/25 Date of Discharge: 01/28/25 Primary Care Physician: Ruben Angela, DATA ENTRY MACHINE OPERATOR-C Consultations 01/24/25 16:22 Consult: Revolving Inventory Clerk / Pulmonary Medicine Routine Consulting Provider: Intensivists/Pulmonary Med Reason for Consult: sepsis committee guidelines. EMERGENT Consult: Yes Notified: Yes Date Notified: 01/24/25 Time Notified: 15:33 Method of Notification: Answering Service 01/26/25 09:28 Consult: Tele-Neurology Routine Consulting Provider: [facility] Reason for Consult: confusion, slurred speech but stroke ruled out. Parkinson disease EMERGENT Consult: No Notified: Yes Date Notified: 01/26/25 Time Notified: 09:28 Method of Notification: Text Nursing Unit Staff Notify [facility] of Tele-Neurology Consult: Yes Reason For Visit: UTI Diagnosis Discharge Diagnosis (1) Sepsis: Status: Acute Code(s): A41.9 - Sepsis, unspecified organism Plan: 84-year-old gentleman was admitted with confusion from the rehab center where he is recovering from ankle fracture, sustained in the November 2024. He was also noticed to have slurred speech and facial droop, LKW 11 PM on 01/23.. There was also concern of stroke and patient had CTA head and neck done. Stroke alert was called at 1228 NIH stroke scale was 2. Patient did not meet criteria for fibrinolytics. But later, it was suspected sepsis because of qSOFA 2/3, SARS 2/4 with suspicion of UTI. Sepsis protocol was followed with 30 cc of IV crystalloid fluid. Revolving Inventory Clerk consulted. 3/: Sepsis is resolved. BP consistently more than 110 mmHg. 3/4: PT and OT. Blood pressure is normal. Pulse ox 97% on room air (2) Urinary tract infection: Status: Acute Code(s): N39.0 - Urinary tract infection, site not specified Plan: Patient had a urinary tract infection with E. coli and Pseudomonas that were both sensitive to Cipro back in November 21. Continue with ciprofloxacin for now. Prelim urine culture shows mixed gram-positive and negative organisms. Earlier urine culture shows multiple 5 organisms therefore it was contamination. 3/3: Repeat urine culture and blood cultures are pending 34: Urine culture shows E. coli ESBL negative more than 100,000 colonies. Urine culture shows E. coli, patient has hives and anaphylaxis with cefepime and E. coli's restaurant to fluoroquinolones. Started on Bactrim DS. Losartan on hold. 01/28: Prescription given for 6 more days of Bactrim DS to complete total of 7 days. Hold losartan while patient is on Bactrim DS. BMP in 1 week to look for hyperkalemia. (3) Encephalopathy acute: Status: Acute Code(s): G93.40 - Encephalopathy, unspecified Plan: Multifactorial due to sepsis, UTI and patient underlying Parkinson disease. Head CT showed no acute process CTA of the head and neck showed moderate atherosclerosic plaque and calcification with no hemodynamic significant stenosis in bilateral arteries of the head and neck. No LVO. Will hold off on gabapentin and Mcclusky. Patient has tremors/shaking and probably might have some cognitive deficit/early dementia. 01/26: Will get neurology consult. 01/28: Neurology saw the patient advised to continue his Parkinson medication Sinemet. Advised follow-up with her own neurologist. Patient has appointment with neurologist Dr. Hawkins in February 2025 Plan Chronic conditions DM2: Continue with glargine. Add sliding scale insulin. A1c 7.0. Glucose 66. Hold glimepiride and pioglitazone.Accu-Chek before meals and at bedtime with Humalog sliding scale coverage and hypoglycemia protocol. Hypertension: BP control Continue with metoprolol succinate, losartan Parkinson disease: Continue with carbidopa/levodopa. VTE prophylaxis with enoxaparin CODE STATUS: Per the retirement facility records. Patient is DNR Comfort Care arrest. Discharge medication reconciliation done. Discharge follow-up instructions completed. Discharge process discussed with the patient and all questions were answered to patient's satisfaction. Follow with PCP in 1 to 2 weeks Total time spent, exact 35 minutes on discharge meds reconciliation, examination, coordination of care with nurses and ancillary staff, review of imaging and blood test and discussion with the patient on follow-up instructions. Medications at Discharge Home Medications duloxetine 60 mg capsule,delayed release 60 mg PO BID DEPRESSION 03/12/18 omega-3 fatty acids 1,000 mg capsule 1,000 mg PO BID SUPPLEMENT 03/12/18 fenofibrate 160 mg tablet 160 mg PO DAILY CHOLESTEROL 01/14/21 glimepiride 4 mg tablet 4 mg PO DAILY DIABETIC 01/14/21 pioglitazone 45 mg tablet (Actos) 45 mg PO DAILY DIABETES 01/14/21 primidone 250 mg tablet 250 mg PO TID PARKINSONS 01/14/21 simvastatin 40 mg tablet 40 mg PO QHS CHOLESTEROL 01/14/21 hydrocodone-acetaminophen 5-325mg 5mg-325mg 1 tab PO Q12H PRN Pain 03/23/21 ipratropium 0.5 mg-albuterol 3 mg (2.5 mg base)/3 mL nebulization soln 3 ml inhalation Q6H COPD J44.9 #180 mL 07/03/22 carbidopa 25 mg-levodopa 100 mg tablet 1 tab PO BID PARKINSON'S 10/31/23 losartan 25 mg tablet 25 mg PO QDAY HTN 04/01/24 Held on 01/28/25. Instructions: Hold it while patient is taking Bactrim DS for UTI. insulin glargine 100 unit/mL (3 mL) subcutaneous pen (Lantus Solostar U-100 Insulin) 20 unit subcut .Daily Diabetes 10/05/24 budesonide 160 mcg-glycopyr 9 mcg-formot 4.8 mcg/actuation HFA inhaler (Breztri Aerosphere) 2 inh inhalation BID WHEEZING #10.7 grams 10/16/24 blood sugar diagnostic (OneTouch Verio test strips) 11/21/24 blood-glucose meter (OneTouch Verio Flex Meter) 11/21/24 gabapentin 600 mg tablet 600 mg PO TID NEUROPATHY 11/21/24 lancets 33 gauge (OneTouch Delica Plus Lancet) 11/21/24 bisacodyl 5 mg tablet,delayed release 5 mg PO ONCE 01/19/25 famotidine 20 mg tablet 20 mg PO BID 01/19/25 metoprolol succinate 25 mg tablet,extended release 24 hr 25 mg PO QHS 01/19/25 polyethylene glycol 3350 17 gram/dose oral powder (Miralax) 17 g PO QHS 01/19/25 cholecalciferol (vitamin D3) 1,250 mcg (50,000 unit) capsule 1,250 mcg PO QMONTH 01/24/25 duloxetine 60 mg capsule,delayed release (Cymbalta) 60 mg PO BID 01/24/25 acetaminophen 325 mg tablet 650 mg (2 x 325 mg) PO Q6H PRN PRN Pain 1-10 Or Fever>100.7 #0 tabs 01/28/25 sulfamethoxazole 800 mg-trimethoprim 160 mg tablet 1 tab PO BIDCM 6 days #12 tabs 01/28/25 Physical Exam Narrative Seen and examined Patient is being discharged to correction. Was seen by neurologist. No fever. Blood culture negative for more than 48 hours. Physical exam General: Alert, Oriented x3, Cooperative HEENT: Atraumatic, PERRLA, EOMI, Normocephalic Oral: No Gingival or Mucosal Lesions/ Ulcerations Neck: Supple, No JVD, Negative Carotid Bruits. Chest wall/Lungs: Right chest wall port. Air entry diminished in bilateral lung bases. Lungs more clear now Cardiovascular: Regular rate, Regular Rhythm, CABG surgery. 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 Extremities: Mild right ankle edema, Capillary Refill Less than 3 Seconds Skin: No rashes, No breakdown Musculoskeletal: Recently ankle fracture with minimal tenderness. No Tenderness to Palpation of Joints or Extremities Neurological: Cranial nerves II-XII grossly intact, DTR 2+/4. No acute focal neurological deficit. Psych/Mental Status: Flat affect Weight / BMI Weight Weight: 241 lb 10.026 oz Body Mass Index (BMI) 36.7 ABG / Lab / Microbiology Data 01/28/25 05:52 01/27/25 05:35 Laboratory: Laboratory Results - last 24 hr 01/27/25 17:16: POC Glucose 117 H 01/27/25 20:53: POC Glucose 132 H 01/28/25 05:52: WBC 3.8 L, RBC 3.42 L, Hgb 10.7 L, Hct 32.9 L, MCV 96.2 H, MCH 31.3, MCHC 32.5, RDW Std Deviation 48.5 H, RDW Coeff of Yara 13.7, Plt Count 176, MPV 10.2, Immature Gran % (Auto) 0.300, Neut % (Auto) 39.3 L, Lymph % (Auto) 47.6 H, [place] % (Auto) 9.6, Eos % (Auto) 2.7, Baso % (Auto) 0.5, Absolute Neuts (auto) 1.5 L, Absolute Lymphs (auto) 1.79, Nucleated RBC % 0 01/28/25 06:18: POC Glucose 107 H 01/28/25 11:35: POC Glucose 177 H Microbiology: Microbiology 01/24/25 13:45 Urine, Catheterized Urine Culture - Final Escherichia coli Pseudomonas aeruginosa Corynebacterium striatum Enterococcus faecalis Klebsiella pneumoniae sp pneum 01/25/25 10:35 Urine, Random Urine Culture - Final Escherichia coli 01/24/25 16:45 Blood Culture (Wb) - Anticubital Left Blood Culture - Preliminary No growth in 48 hours. 01/24/25 16:45 Blood Culture (Wb) - Anticubital Left Blood Culture - Preliminary No growth in 48 hours. 01/24/25 13:05 Mucosa - Nose SARS-CoV-2, Influenza & RSV (PCR) - Final D/C Instructions DC O2, CPAP, BIPAP Needs PSN CPAP & BiPAP: BiPAP & CPAP Settings per PSN Fraction of Inspired Oxygen ( 21 01/26/25 00:15 FIO2) Home O2 Discharge instructions: No Meaningful Use Info Meaningful Use Meaningful Use Diagnoses (Choose all that apply): None applicable Ischemic Stroke Statin Dosing Therapy Reference: STATIN DOSE THERAPY REFERENCE: * Patients > 75 years receive moderate or high dose statin therapy. * Patients 75 years or YOUNGER should receive HIGH intensity statin dose unless contraindicated. You will be required to document reason for non-treatment if statin daily dose does not meet guidelines. HIGH DOSE STATIN THERAPY DAILY Atorvastatin > than or = to 40 mg Rosuvastatin > than or = to 20 mg Amlodipine + Atorvastatin > than or = to 2.5/40 mg Ezetimibe + Simvastatin 10/80 mg Simvastatin 80mg Discharge Plan Admission Admit Date/Time: 01/24/25 15:25 Primary Reason for Your Visit: E. coli UTI. Sepsis due to UTI. Encephalopathy Attending Provider: Oswaldo House Primary Care Provider: Ruben Angela DATA ENTRY MACHINE OPERATOR Consulting Providers: Jorge Guadarrama; Paulo Wolf; Goran Woodson; Conrad Thompson; Jesus Estes; Rudolph Nichols; Devaughn Mercado; Ralph Jefferson; Lori Us; Josué Collazo; Rojas Redd; Yakov Charles; Shirley Falcon; Quiana Nolan; Shirley Dale; Chaparro Coronel; Stefan Manuel; Ventura Smith; Nikko Alanis; Kalie Nuñez; Nydia Palomares; Adebayo Mdeina; Flo Jain; Manjinder Balderas Discharge Orders/Prescriptions Prescriptions: New acetaminophen 325 mg Tablet 650 mg PO Q6H PRN PRN (Reason: Pain 1-10 Or Fever>100.7) Qty: 0 0RF sulfamethoxazole-trimethoprim 800-160 mg Tablet 1 tab PO BIDCM 6 Days Qty: 12 0RF Continued omega-3 fatty acids 1,000 mg capsule 1,000 mg PO BID duloxetine 60 mg capsule,delayed release(DR/EC) 60 mg PO BID Patient Comments: Duplicate hydrocodone-acetaminophen 5-325 mg tablet 1 tab PO Q12H PRN (Reason: Pain) carbidopa-levodopa 25-100 mg tablet 1 tab PO BID Breztri Aerosphere 160-9-4.8 mcg/actuation HFA aerosol inhaler 2 inh inhalation BID Qty: 10.7 6RF bisacodyl 5 mg tablet,delayed release (DR/EC) 5 mg PO ONCE famotidine 20 mg tablet 20 mg PO BID metoprolol succinate 25 mg tablet extended release 24 hr 25 mg PO QHS polyethylene glycol 3350 [Miralax] 17 gram/dose powder 17 g PO QHS pioglitazone [Actos] 45 MG tablet 45 mg PO DAILY simvastatin 40 MG tablet 40 mg PO QHS primidone 250 MG tablet 250 mg PO TID glimepiride 4 MG tablet 4 mg PO DAILY fenofibrate 160 MG tablet 160 mg PO DAILY insulin glargine [Lantus Solostar U-100 Insulin] 100 unit/mL (3 mL) insulin pen 20 unit subcut .Daily Patient Comments: 15 units daily gabapentin 600 mg tablet 600 mg PO TID (DME) blood-glucose meter [LoHariaTouch Verio Flex meter] [facility] MISCELLANEOUS UD (DME) OneTouch Verio test strips Strip MISCELLANEOUS TID (DME) lancets [LoHariaTouch Delica Plus Lancet] 33 [place] [facility] [place] TID cholecalciferol (vitamin D3) 1,250 mcg (50,000 unit) capsule 1,250 mcg PO QMONTH duloxetine [Cymbalta] 60 mg capsule,delayed release(DR/EC) 60 mg PO BID ipratropium-albuterol 0.5 mg-3 mg(2.5 mg base)/3 mL solution for nebulization 3 ml INHALATION Q6H Qty: 180 11RF Held losartan 25 mg tablet 25 mg PO QDAY Hold Instructions: Hold it while patient is taking Bactrim DS for UTI. Referrals / Follow Up: Ruben Angela DATA ENTRY MACHINE OPERATOR, DATA ENTRY MACHINE OPERATOR-C [Primary Care Provider] - Disposition Discharge Orders: Discharge Patient (Routine); Ordered 01/28/25 Ordered By: Dr. Oswaldo House Charges/Coding Visit Charges Inpatient E&M: 98439 Disch Hosp >30min
--- NOTE | 2025-01-28 13:56 | CASEMGMT ---
Discharge Planning Discharge orders, signed med list, and transport time sent to [facility]. Pts will transport. Nursing, SW, pt, and his updated. Doreen Ambrosio DC Planning Asst.
--- NOTE | 2025-01-28 14:41 | NURSING ---
Report called to Nereida at [facility].
== END 2025-01-28 15:26 | disposition skilled nursing facility (03) | DRG 871 ==
LOC: ED 15:11 → MS3 15:55 → ICU 18:28 → PCU 01-27 09:06 → ICU 01-30 11:55 → PCU 01-30 11:55
PROVIDERS: Emergency Provider Emergency Medicine; PCP Nurse Practitioner Family; Visit Provider Internal Medicine
DX: A41.9 Sepsis, unspecified organism (principal); G93.41 Metabolic encephalopathy; G93.49 Other encephalopathy; N39.0 Urinary tract infection, site not specified; Z16.12 Extended spectrum beta lactamase (ESBL) resistance; E11.22 Type 2 diabetes mellitus with diabetic chronic kidney disease; F02.80 Dementia in other diseases classified elsewhere, unspecified severity, without behavioral disturbance, psychotic disturbance, mood disturbance, and anxiety; E78.5 Hyperlipidemia, unspecified; B96.20 Unspecified Escherichia coli [E. coli] as the cause of diseases classified elsewhere; Z66 Do not resuscitate; N18.30 Chronic kidney disease, stage 3 unspecified; G20.A1 Parkinson's disease without dyskinesia, without mention of fluctuations; I12.9 Hypertensive chronic kidney disease with stage 1 through stage 4 chronic kidney disease, or unspecified chronic kidney disease; Z79.4 Long term (current) use of insulin; I25.10 Atherosclerotic heart disease of native coronary artery without angina pectoris; Z95.1 Presence of aortocoronary bypass graft; Z79.84 Long term (current) use of oral hypoglycemic drugs; Z79.899 Other long term (current) drug therapy; Z87.891 Personal history of nicotine dependence
CPT/HCPCS: 36415; 70450; 70496; 70498; 71045; 80048; 81001; 82962; 83036; 83605; 84484; 85025; 85610; 85730; 87040; 87077; 87086; 87088; 87184; 87186; 87631; 93005; 94640; 94762; 97116; 97162; 97166; 97530; 97535; 99285; Q9967; A4216; J0744

== ENCOUNTER 2025-05-11 13:29 | Emergency (ER) | payer MEDICARE, SELFPAY ==
[2025-05-11] VITALS (18 sets, daily range): BP systolic 112–155; BP diastolic 54–124; PULSE 52–72; RESP 12–25; TEMP 36.4–36.9; O2SAT 93–100; BMI 38.2
--- NOTE | 2025-05-11 15:17 | EKG12_ITS ---
Test Reason : SOB Blood Pressure : */* mmHG Vent. Rate : 54 BPM Atrial Rate : 54 BPM P-R Int : 186 ms QRS Dur : 100 ms QT Int : 434 ms P-R-T Axes : 67 44 51 degrees QTcB Int : 411 ms Sinus bradycardia Otherwise normal ECG Confirmed by JENNIFER GEORGES, AKIL ([id number]), acquisition editor MANJIT RAMIREZ ([id number]) on 05/12/2025 10:52:24 AM Referred By: Confirmed By: AKIL RODRIGUEZ MD
--- NOTE | 2025-05-11 15:19 | ED.VIS.DYS ---
HPI History of Present Illness Chief Complaint: Cough Detail of Chief Complaint: Cough Informant: patient and spouse/S.O. Narrative Narrative: Patient presents with cough and some shortness of breath is been going on for about 2 weeks. Patient at times ran up some green phlegm. Saw primary care physician 4 days ago and started on an antibiotic and prednisone but continues to have rattling in his chest. No fever although he has had some sweats. Patient called his residential director and was told to come to the ER. Denies chest pain. [place] recent travel or surgery. No history of PE or DVT. [facility] Medical History Right foot sprain Right ankle sprain Fracture of fibula, right, closed Obesity (BMI 30-39.9) Chronic back pain Osteoarthritis DDD (degenerative disc disease) Lumbar spondylosis MSSA bacteremia Acute hyperglycemia COPD (chronic obstructive pulmonary disease) Blood bacterial culture positive Arthritis of sacroiliac joint Candidal dermatitis Candidiasis Sleep apnea Kidney disease Smoker H/O cardiovascular stress test History of left heart catheterization (~02/24/10) Cardiology follow-up encounter Port-A-Cath in place (~01/24/21) History of blood transfusion bladder instill antica agent Low back pain Primary hypertension Emphysema, unspecified Congenital stenosis and stricture of esophagus Cardiac murmur, unspecified Atherosclerotic heart disease Anemia Acute kidney failure, unspecified Gross hematuria BPH with obstruction/lower urinary tract symptoms Bladder cancer Nicotine dependence, cigarettes, uncomplicated JOHN (obstructive sleep apnea) COPD (chronic obstructive pulmonary disease) Acute NC, inferior wall CKD stage 3 Diabetes mellitus Hyperlipidemia Pulmonary HTN CAD (coronary artery disease) Diabetic neuropathy Mitral valve regurgitation Tricuspid valve regurgitation B12 deficiency Parkinson disease Pneumonia Tobacco use disorder, continuous Obesity Home Medications ?Medication ?Instructions ?Recorded ?Last Taken ?Type duloxetine 60 mg capsule,delayed 60 mg PO BID DEPRESSION 03/12/18 11/28/24 History release omega-3 fatty acids 1,000 mg 1,000 mg PO BID SUPPLEMENT 03/12/18 Unknown History capsule fenofibrate 160 mg tablet 160 mg PO DAILY CHOLESTEROL 01/14/21 11/27/24 History pioglitazone 45 mg tablet (Actos) 45 mg PO DAILY DIABETES 01/14/21 Unknown History primidone 250 mg tablet 250 mg PO TID PARKINSONS 01/14/21 11/28/24 History simvastatin 40 mg tablet 40 mg PO QHS CHOLESTEROL 01/14/21 11/27/24 History hydrocodone-acetaminophen 5-325mg 1 tab PO Q12H PRN Pain 03/23/21 Unknown History 5mg-325mg ipratropium 0.5 mg-albuterol 3 mg 3 ml inhalation Q6H COPD J44.9 07/03/22 Unknown Rx (2.5 mg base)/3 mL nebulization #180 mL soln carbidopa 25 mg-levodopa 100 mg 1 tab PO BID PARKINSON'S 10/31/23 11/28/24 History tablet losartan 25 mg tablet 25 mg PO QDAY HTN 04/01/24 11/28/24 History insulin glargine 100 unit/mL (3 20 unit subcut DAILY Diabetes 10/05/24 Unknown History mL) subcutaneous pen (Lantus Solostar U-100 Insulin) [facility] 11/21[facility] Unknown History Verio test strips) [facility] 11/21/24 Unknown History Verio Flex Meter) gabapentin 600 mg tablet 600 mg PO TID NEUROPATHY 11/21/24 11/28/24 History lancets 33 gauge (OneTouch Delica 11/21/24 Unknown History Plus Lancet) polyethylene glycol 3350 17 17 g PO QHS 01/19/25 Unknown History gram/dose oral powder (Miralax) cholecalciferol (vitamin D3) 1,250 1,250 mcg PO QMONTH 01/24/25 Unknown History mcg (50,000 unit) capsule duloxetine 60 mg capsule,delayed 60 mg PO BID 01/24/25 Unknown History release (Cymbalta) budesonide 160 mcg-glycopyr 9 2 inh inhalation BID WHEEZING 04/23/25 Unknown Rx mcg-formot 4.8 mcg/actuation HFA #10.7 grams inhaler (Breztri Aerosphere) azithromycin 250 mg tablet 250 mg PO DAILY 05/11/25 Unknown History calcium 600 mg (as 1 tab PO BID 05/11/25 Unknown History carbonate)-vitamin D3 5 mcg (200 unit) tablet (Calcium 600 + D(3)) omega 2-wax-scf-fish oil 1,200 mg 1 cap PO BID 05/11/25 Unknown History (144 mg-216 mg) capsule (Fish Oil) pramipexole 0.5 mg tablet 0.5 mg PO 05/11/25 Unknown History prednisone 20 mg tablet 20 mg PO BID #10 tabs 05/11/25 Unknown Rx Allergy/AdvReac Type Severity Reaction Status Date / Time cefepime Allergy Severe Anaphylaxis Verified 05/11/25 13:29 cefazolin Allergy Intermediate Hives Verified 05/11/25 13:29 Family History Mother Ovarian cancer Father Heart disease Brother Leukemia Surgical History Status post radical cystoprostatectomy Hx of transurethral resection of prostate (~01/05/21) History of quadruple bypass History of hand surgery History of ankle surgery Hx of cystoscopy S/P TURP Previous back surgery S/P CABG x 4 Social History current occupational status: retired Smoking Status: Former smoker quit date: 12/27/20 alcohol intake: never substance use type: does not use caffeine: Yes Type: coffee Number of servings: 1 eating out: rarely or never ROS ROS ED Review of Systems ROS Unobtainable: other Constitutional Constitutional ED: Reports lethargy; Denies chills, fever(s), sweats or weight loss Eyes Eyes: Denies blurry vision, change in vision or diplopia ENT ENT ED: Denies rhinorrhea or sore throat Cardiovascular Cardiovascular: Reports racing heartbeat; Denies chest pain or orthopnea Respiratory/Chest Respiratory/Chest: Reports cough, dyspnea, dyspnea on exertion and sputum; Denies orthopnea Gastrointestinal Gastrointestinal: Denies abdominal pain, diarrhea, nausea or vomiting Genitourinary Genitourinary ED: Denies dysuria, hematuria or urinary frequency Musculoskeletal Musculoskeletal: Denies arthralgias, back pain, myalgias or neck pain Integumentary Denies abscess, Abrasions or rash Neurologic Neurologic: Denies headache(s) or weakness Psychiatric Psychiatric: Denies anxiety, depression or suicidal thoughts Endocrine Endocrinology: Denies polydipsia, polyphagia or polyuria Hematologic/Lymphatic Hematologic/Lymphatic: Denies easy bleeding, easy bruising or lymphadenopathy Allergic/Immunologic Allergic/Immunologic ED: Denies mouth swelling, tongue swelling or urticaria EXAM Physical Exam Const Vital Signs: 05/11/25 13:29 05/11/25 16:09 05/11/25 16:10 Temperature 98.4 F Temperature Source Oral Pulse Rate 72 55 L Respiratory Rate 20 H 16 Respiratory Effort Respiratory Depth Respiratory Pattern Blood Pressure 147/75 H 120/60 Blood Pressure Mean 99 80 Pulse Ox 93 95 94 Oxygen Delivery Method Room Air Room Air Room Air Oxygen Flow Rate (L/min) 05/11/25 16:12 05/11/25 16:17 05/11/25 16:17 Temperature Temperature Source Pulse Rate 56 L Respiratory Rate 20 H Respiratory Effort Short of Breath Labored Accessory Muscle Use Respiratory Depth Normal Respiratory Pattern Tachypnea Blood Pressure Blood Pressure Mean Pulse Ox 96 Oxygen Delivery Method Room Air Room Air Oxygen Flow Rate (L/min) 05/11/25 16:17 05/11/25 16:30 05/11/25 16:45 Temperature Temperature Source Pulse Rate 57 L 52 L 53 L Respiratory Rate 20 H 21 H 17 Respiratory Effort Respiratory Depth Respiratory Pattern Blood Pressure 112/54 L 117/58 L Blood Pressure Mean 72 78 Pulse Ox 97 94 94 Oxygen Delivery Method Oxygen Flow Rate (L/min) 05/11/25 17:00 05/11/25 17:15 05/11/25 17:30 Temperature Temperature Source Pulse Rate 54 L 53 L 59 L Respiratory Rate 16 21 H 15 Respiratory Effort Respiratory Depth Respiratory Pattern Blood Pressure 155/64 H 136/65 H 139/124 H Blood Pressure Mean 88 85 131 Pulse Ox 94 93 96 Oxygen Delivery Method Oxygen Flow Rate (L/min) 05/11/25 17:35 05/11/25 17:45 05/11/25 17:49 Temperature 97.5 F L Temperature Source Oral Pulse Rate 54 L 59 L 59 L Respiratory Rate 22 H 25 H 17 Respiratory Effort Respiratory Depth Respiratory Pattern Blood Pressure 133/57 H 133/57 H Blood Pressure Mean 78 82 Pulse Ox 98 98 Oxygen Delivery Method Room Air Oxygen Flow Rate (L/min) 05/11/25 18:00 05/11/25 18:15 05/11/25 18:30 Temperature Temperature Source Pulse Rate 57 L 55 L Respiratory Rate 21 H 22 H Respiratory Effort Respiratory Depth Respiratory Pattern Blood Pressure 139/71 H 139/63 H 136/59 H Blood Pressure Mean 91 83 83 Pulse Ox 98 96 96 Oxygen Delivery Method Room Air Oxygen Flow Rate (L/min) 97.8 05/11/25 18:45 05/11/25 19:00 Temperature Temperature Source Pulse Rate 56 L Respiratory Rate 21 H Respiratory Effort Respiratory Depth Respiratory Pattern Blood Pressure 145/74 H 145/87 H Blood Pressure Mean 95 105 Pulse Ox 96 96 Oxygen Delivery Method Room Air Oxygen Flow Rate (L/min) Positive well nourished and well developed General Appearance ED: well developed and NAD HEENT Reports TM's clear and moist mucous membranes normocephalic and atraumatic; Negative for trauma or tenderness Tympanic Membrane ED: Yes TM's clear Eyes PERRL and EOMs intact bilaterally General Eye ED: Negative for pale conjunctiva or scleral icterus Neck no lymphadenopathy, supple and no JVD General: Negative for tenderness Chest Wall inspection of chest normal and palpation of chest normal Chest: Negative for tenderness Resp normal respiratory effort and No clear to auscultation bilaterally Resp Narrative: Rhonchi bilaterally with some faint expiratory wheezes. No accessory muscle use or retractions. No conversational dyspnea. Effort and Inspection: Negative for respiratory distress or pain with movement Auscultation: Negative for rhonchi, wheezes or diminished lung sounds Cardio regular rate, regular rhythm, S1 normal heart sound, S2 normal heart sound and no murmurs Peripheral Pulses: pulses 2+ throughout GI normal to inspection, nondistended, normoactive bowel sounds, soft to palpation, non-tender, non-distended and no masses Back/Spine no CVA tenderness and no thoracic nor lumbar tenderness Extremity normal to inspection General Extremety ED: Negative for edema General Extremity: Negative for edema Neuro oriented x3, CN's II-XII intact bilaterally, no sensory deficits noted and gait normal Sensorium / Orientation: awake, alert, oriented to person, oriented to place and oriented to time Motor Exam: strength 5/5 throughout and strength abnormal Psych mental status grossly normal Skin no rashes or lesions noted and no wounds MDM MDM MDM Narrative Medical decision making narrative: Patient presents with cough x 2 weeks and currently on antibiotics. states she started Zithromax but initially said he was on steroids but now tells me that he is not on prednisone. He does have a history of COPD. No recent travel or surgery. He denies chest pain. He said no fever. IV line established. CBC with differential obtained showed a normal white count of 5.3 with hemoglobin 10.9 and platelet count of 230. Chemistries unremarkable. BT DERRICK MAN was normal at 543. 1 view chest x-ray showed mild pulmonary congestion without evidence of focal consolidations. Patient was given DuoNeb aerosol followed by albuterol aerosol and was given Solu-Medrol IV. At this point he will be discharged to home I suspect likely COPD exacerbation. He felt markedly improved after breathing treatments here. He has a nebulizer at home. Will start him on prednisone. Advised to follow-up with his residential director within the next 3 to 5 days. He is to return if increasing shortness of breath or condition should worsen anyway. Lab Data Attestation: I reviewed the patient's lab results. Labs: Laboratory Results - last 24 hr 05/11/25 16:10 WBC 5.3 RBC 3.41 L Hgb 10.9 L Hct 33.5 L MCV 98.2 H MCH 32.0 MCHC 32.5 RDW Std Deviation 53.6 H RDW Coeff of Yara 14.8 H Plt Count 230 MPV 9.9 Immature Gran % (Auto) 0.200 Neut % (Auto) 57.9 Lymph % (Auto) 32.4 Benson % (Auto) 8.3 Eos % (Auto) 0.8 Baso % (Auto) 0.4 Absolute Neuts (auto) 3.1 Absolute Lymphs (auto) 1.72 Nucleated RBC % 0 Sodium 132 L Potassium 4.8 Chloride 98 Carbon Dioxide 25.4 Anion Gap 9 BUN 21 H Creatinine 1.04 Estim Creat Clear Calc 65.92 Est GFR (MDRD) Non-Af 71 BUN/Creatinine Ratio 20.6 H Glucose 187 H Lactic Acid 1.1 Calcium 9.3 NT pro BNP II 543 Radiography Diagnostic Testing: Clinical Impression(s) from Imaging Studies Chest X-Ray 05/11/25 15:35 IMPRESSION: Mild pulmonary vascular congestion. No focal consolidations. Reading Location: [facility] 1 view chest x-ray obtained interpreted by myself as no evidence of infiltrate or pneumothorax or acute disease process. Radiology in agreement EKG Initial EKG: Attestation: I personally reviewed and interpreted this EKG as follows: Comments: Sinus rhythm with rate of 54 bpm with no acute ST segment Discharge Plan Triage Chief Complaint: Cough ED Provider: Ellie Falk Dx/Rx/DC Orders Clinical Impression: COPD exacerbation Instructions: ED COPD Flare Prescriptions: New prednisone 20 mg tablet 20 mg PO BID Qty: 10 0RF No Action omega-3 fatty acids 1,000 mg capsule 1,000 mg PO BID duloxetine 60 mg capsule,delayed release(DR/EC) 60 mg PO BID Patient Comments: Duplicate hydrocodone-acetaminophen 5-325 mg tablet 1 tab PO Q12H PRN (Reason: Pain) carbidopa-levodopa 25-100 mg tablet 1 tab PO BID losartan 25 mg tablet 25 mg PO QDAY Breztri Aerosphere 160-9-4.8 mcg/actuation HFA aerosol inhaler 2 inh inhalation BID Qty: 10.7 6RF polyethylene glycol 3350 [Miralax] 17 gram/dose powder 17 g PO QHS pioglitazone [Actos] 45 MG tablet 45 mg PO DAILY simvastatin 40 MG tablet 40 mg PO QHS primidone 250 MG tablet 250 mg PO TID fenofibrate 160 MG tablet 160 mg PO DAILY insulin glargine [Lantus Solostar U-100 Insulin] 100 unit/mL (3 mL) insulin pen 20 unit subcut DAILY Patient Comments: 15 units daily gabapentin 600 mg tablet 600 mg PO TID (DME) blood-glucose meter [[employer] Verio Flex meter] [facility] [place] MISCELLANEOUS UD (DME) OneTouch Verio test strips Strip MISCELLANEOUS TID (DME) lancets [[employer] Delica Plus Lancet] 33 gauge [facility] [place] TID cholecalciferol (vitamin D3) 1,250 mcg (50,000 unit) capsule 1,250 mcg PO QMONTH duloxetine [Cymbalta] 60 mg capsule,delayed release(DR/EC) 60 mg PO BID azithromycin 250 mg tablet 250 mg PO DAILY pramipexole 0.5 mg tablet 0.5 mg PO calcium carbonate-vitamin D3 [Calcium 600 + D(3)] 600 mg-5 mcg (200 unit) tablet 1 tab PO BID omega 2-fba-qhi-fish oil [Fish Oil] 1,200 (144-216) mg capsule 1 cap PO BID ipratropium-albuterol 0.5 mg-3 mg(2.5 mg base)/3 mL solution for nebulization 3 ml INHALATION Q6H Qty: 180 11RF Primary Care Provider: Ruben Angela NP Referrals: Jesus Estes DO [Med Staff - Active Staff] - 3-5 Days Culberson,Ruben Florin DERRICK MAN, DERRICK MAN-C [Primary Care Provider] - Print Language: Georgian Disposition Disposition: Home, Self Care
--- NOTE | 2025-05-11 15:35 | RAD_ITS ---
PROCEDURE: CHEST PA AND LATERAL 05/11/2025 REASON FOR EXAM: COUGH TECHNIQUE: CHEST PA AND LATERAL COMPARISON: 01/24/2025 FINDINGS: No focal consolidations. Mild pulmonary vascular congestion. Mild stable cardiomegaly. No pleural effusion or pneumothorax. Right chest port with tip at SVC junction. Evidence of prior CABG. No acute fractures. RAD/Chest PA and Lateral IMPRESSION: Mild pulmonary vascular congestion. No focal consolidations. Reading Location: [id number]
[2025-05-11] MEDS: MethylPREDNISolone 125 MG/2 ML Vial IV (16:10)
[2025-05-11] MEDS: Ipratropium/Albuterol Sulfate 3 ML AMPUL.NEB INHALATION (16:15)
[2025-05-11 16:48] LABS: Absolute Lymphocyte Count 1.72 X10^3/uL (0.83-4.51); Absolute Neutrophil Count 3.1 X10^3/uL (2.0-7.7); Basophil# 0.02 X10^3/uL; Basophil% 0.4 % (0-1); Eosinophil# 0.04 X10^3/uL; Eosinophils% 0.8 % (0-5); Hematocrit 33.5 % (40-54); Hemoglobin 10.9 g/dL (13.0-16.5); Lymphocyte # 1.72 X10^3/ul (0.83-4.51); Lymphocyte % 32.4 % (19-41); Mean Corp Hgb Conc 32.5 g/dL (32-36); Mean Corpuscular Volume 98.2 fL (80-94); Mean Platelet Vol. 9.9 fl (6.2-12.0); Monocyte# 0.44 X10^3/uL; Monocyte% 8.3 % (0-10); NRBC Flagged by Analyzer 0 % (0-5); Neutrophil # 3.08 X10^3/uL (2.7-7.7); Neutrophil % 57.9 % (47-70); Platelet Count 230 K/mm3 (150-450); RBC Distribution Width CV 14.8 % (11.6-14.6); RBC Distribution Width SD 53.6 fl (35.1-43.9); Red Blood Count 3.41 M/mm3 (4.6-6.2); White Blood Count 5.3 K/mm3 (4.4-11.0)
[2025-05-11 16:53] LABS: Lactic Acid 1.1 mmol/L (0.0-2.0)
[2025-05-11 16:55] LABS: Anion Gap 9 (5-15); BUN 21 mg/dL (4-19); BUN/Creat Ratio 20.6 RATIO (10-20); Calcium,Total 9.3 mg/dL (7.6-11.0); Carbon Dioxide 25.4 mmol/L (21.0-32.0); Chloride 98 mmol/L (98-108); Creatinine, Serum 1.04 mg/dL (0.70-1.20); EST Glomerular Filtration Rate 71 (>60); Estimated Creatinine Clearance 65.92 ml/min (50-250); Glucose 187 mg/dL (70-99); Potassium 4.8 mmol/L (3.3-5.1); Sodium Level 132 mmol/L (133-145)
[2025-05-11] MEDS: Albuterol 2.5 MG/3 ML VIAL.NEB. INHALATION (17:34)
[2025-05-11 19:16] LABS: Pro- Brain NATRIURETIC PEPTIDE 543 pg/mL (<=1800)
== END 2025-05-11 19:43 | disposition home or self-care (01) ==
PROVIDERS: Emergency Provider Emergency Medicine; PCP Nurse Practitioner Family; Visit Provider Emergency Medicine
DX: J44.1 Chronic obstructive pulmonary disease with (acute) exacerbation (principal); G20.A1 Parkinson's disease without dyskinesia, without mention of fluctuations; E11.22 Type 2 diabetes mellitus with diabetic chronic kidney disease; E11.40 Type 2 diabetes mellitus with diabetic neuropathy, unspecified; Z79.4 Long term (current) use of insulin; N18.30 Chronic kidney disease, stage 3 unspecified; I12.9 Hypertensive chronic kidney disease with stage 1 through stage 4 chronic kidney disease, or unspecified chronic kidney disease; I25.10 Atherosclerotic heart disease of native coronary artery without angina pectoris; I25.2 Old myocardial infarction; Z95.1 Presence of aortocoronary bypass graft; Z79.51 Long term (current) use of inhaled steroids; Z79.899 Other long term (current) drug therapy; Z87.891 Personal history of nicotine dependence
CPT/HCPCS: 36591; 71046; 80048; 83605; 83880; 85025; 87040; 93005; 94640; 96374; 99283; A4216

== ENCOUNTER → 2025-06-08 | Outpatient (CLI) | payer MEDICARE, SELFPAY ==
--- NOTE | 2025-06-08 10:31 | RAD_ITS ---
PROCEDURE: CHEST PA AND LATERAL 06/08/2025 REASON FOR EXAM: FALL W/ STERNUM PAIN TECHNIQUE: CHEST PA AND LATERAL COMPARISON: Prior study dated May 11, 2025. FINDINGS: Hardware: Right-sided port a catheter with the tip in the proximal portion of the superior vena cava. Heart: Prior midline sternotomy. Mediastinum: Unremarkable Lungs: Hyperinflation. Prominence of the central pulmonary arteries suggestive of possible pulmonary hypertension. Bones: Degenerative changes are identified within the thoracic spine. No sternal fracture is seen. RAD/Chest PA and Lateral IMPRESSION: Stable examination. Status post midline sternotomy. Enlargement of the central pulmonary arteries suggestive of possible hypertensi on. Reading Location: [id number]
== END | disposition home or self-care (01) ==
LOC: MTRAD 10:31
PROVIDERS: PCP Nurse Practitioner Family; Referring Provider Physician Assistant; Visit Provider Physician Assistant
DX: R07.89 Other chest pain (principal)
CPT/HCPCS: 71046

== ENCOUNTER 2025-08-24 20:11 | Emergency (ER) | payer MEDICARE, SELFPAY ==
--- OUTSIDE RECORDS SUMMARY | 2025-08-17 10:39 | XMS RPT_ITS ---
Author Name Auto Generated Organization OHIP Support Name Relationship Address Phone GENE ALEX Next of Kin Unknown + ~([phone] KRISTY CRAMER Next of Kin [address] [place] [address] + ~([phone] GENE BROWN Next of Kin Unknown + ~(330 GENE ALEX Next of Kin Unknown + ~(330 KRISTY CRAMER Next of Kin [address] [place] [address] + ~(330 GENE ALEX Next of Kin Unknown + KRISTY CRAMER Next of Kin [address] [place] [place] [address] + ~(330 GENE BROWN Next of Kin Unknown + ~(330 GENE ALEX Next of Kin Unknown + KRISTY CRAMER Next of Kin [address] [place] [place] [address] + ~(330 GENE ALEX Next of Kin Unknown + KRISTY CRAMER Next of Kin [address] [place] [address] + ~(330 GENE BROWN Next of Kin Unknown + ~(330 GENE BROWN Next of Kin Unknown + ~(330 CINDY WILKINS Next of Kin Unknown [phone] GENE BROWN Next of Kin Unknown + ~(330 GENE BROWN Next of Kin Unknown + ~(330 GENE BROWN Next of Kin Unknown + ~(330 EGNE ALEX Next of Kin Unknown + KRISTY CRAMER Next of Kin [address] [place] [place] [address] + ~(330 KRISTY CRAMER Next of Kin Unknown + Care Team Providers Care Obgyn Specialist Name Role Phone JAYESH GTZ Attending Unavailable VALERIY, YELITZA Primary Care Unavailable RIVKA, NINA Attending Unavailable VALERIY, YELITZA Primary Care Unavailable JAYESH GTZ Attending Unavailable JAYESH GTZ Referring Unavailable VALERIY, YELITZA Primary Care Unavailable BAVCLEM, NINA Attending Unavailable VALERIY, YELITZA Primary Care Unavailable BAVNINA [place] Attending Unavailable VALERIY, YELITZA Primary Care Unavailable BAVCLEM, NINA Attending Unavailable VALERIY, YELITZA Primary Care Unavailable VALERIY, YELITZA DAMIAN Primary Care Unavail able ANIRUDH MOSELEY Attending Unavailable VALERIY INTERNATIONAL TAX MANAGER - PHYSICIAN UNDERWRITER, YELITZA James Attending U navailable VALERIY INTERNATIONAL TAX MANAGER - PHYSICIAN UNDERWRITER, YELITZA James Primary Care U navailable VALERIY INTERNATIONAL TAX MANAGER - PHYSICIAN UNDERWRITER, YELITZA James Attending U navailable VALERIY INTERNATIONAL TAX MANAGER - PHYSICIAN UNDERWRITER, YELITZA James Primary Care U navailable ROSINA ESTRADA DO Attending Unavailable VALERIY INTERNATIONAL TAX MANAGER - PHYSICIAN UNDERWRITER, YELITZA James Primary Care U navailable VALERIY INTERNATIONAL TAX MANAGER - PHYSICIAN UNDERWRITER, YELITZA James Attending U navailable VALERIY INTERNATIONAL TAX MANAGER - PHYSICIAN UNDERWRITER, YELITZA James Primary Care U navailable VALERIY INTERNATIONAL TAX MANAGER - PHYSICIAN UNDERWRITER, YELITZA James Attending U navailable VALERIY INTERNATIONAL TAX MANAGER - PHYSICIAN UNDERWRITER, YELITZA James Primary Care U navailable JOSE GEORGES, DR OSMAN Attending Unavailab le VALERIY INTERNATIONAL TAX MANAGER - PHYSICIAN UNDERWRITER, YELITZA James Primary Care U navjoselin MARVIN MD, DEMETRIO Kahn Attending Unavailable VALERIY INTERNATIONAL TAX MANAGER - PHYSICIAN UNDERWRITER, YELITZA James Primary Care U navailable PROBLEMS DATE TYPE CONDITION / CODE ATTENDING STATUS [facility] 08/17/2025 Admitting Diagnosis Radiculopathy, lumbar region / M54.16(ICD-10) [facility] 08/17/2025 Admitting Diagnosis Other symptoms and signs involving the musculoskeletal system / R29.898(ICD-10) [facility] 08/17/2025 Admitting Diagnosis Anesthesia of skin / R20.0(ICD-10) [facility] 08/17/2025 Admitting Diagnosis Other amnesia / R41.3(ICD-10) [facility] 08/17/2025 Admitting Diagnosis Essential tremor / G25.0(ICD-10) [facility] 08/17/2025 Admitting Diagnosis Polyneuropathy, unspecified / G62.9(ICD-10) [facility] 07/28/2025 Admitting Diagnosis Essential (primary) hypertension / I10(ICD-10[facility] Diagnosis 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) [facility] 07/28/2025 Admitting Diagnosis Type 2 diabetes mellitus without complications / E11.9(ICD-10) [facility] 07/28/2025 Admitting Diagnosis Chronic kidney disease, unspecified / N18.9(ICD-10) [facility] 07/28/2025 Admitting Diagnosis Hyperlipidemia, unspecified / E78.5(ICD-10) [facility] 07/28/2025 Admitting Diagnosis Vitamin D deficiency, unspecified / E55.9(ICD-10) [facility] 06/09/2025 Admitting Diagnosis Parkinson's disease without dyskinesia, with fluctuations (HCC) / G20.A2(ICD-10) JAYESH GTZ [facility] 06/09/2025 Admitting Diagnosis Repeated falls / R29.6(ICD-10) JAYESH GTZ [facility] 06/09/2025 Admitting Diagnosis Weakness / R53.1(ICD-10) JAYESH GTZ [facility] 05/07/2025 Admitting Diagnosis Encounter for other administrative examinations / Z02.89(ICD-10) VALERIY INTERNATIONAL TAX MANAGER - PHYSICIAN UNDERWRITER, YELITZA James [facility] 02/05/2025 Admitting Diagnosis Sciatica, left side / M54.32(ICD-10) VALERIY INTERNATIONAL TAX MANAGER - [facility], YELITZA James [facility] 02/05/2025 Admitting Diagnosis Unspecified symptoms and signs involving the genitourinary system / R39.9(ICD-10) VALERIY RENDONN [facility], YELITZA Jacob [facility] 11/27/2024 Admitting Diagnosis Hemorrhage of anus and rectum / K62.5(ICD-10) ANIRUDH MOSELEY [facility] 09/02/2024 Admitting Diagnosis Parkinson's disease without dyskinesia, without mention of fluctuations (HCC) / G20.A1(ICD-10) NINA TINEO [facility] PROCEDURES No Procedure Records Found RESULTS OFFICE VISIT Observed: 08/17/2025 10:40 AM Status: COMPLETED Source: [facility] [id number] Akash Cramer [birth year] 44 M Date Provider Department Center 08/17/2025 [id number]-ARXYANINA TINEO [facility] None Family History Problem Relation Age of Onset Stomach cancer Mother Heart attack Father Family Status - Relation Status Age at Mother Father Level of Service:[id number] MA OFFICE/OUTPATIENT ESTABLISHED LOW MDM 20 MIN Reason for Visit and Comments: Follow-up [[id number]] Parkinson's Disease [385] PROGRESS NOTE Observed: 08/17/2025 10:40 AM Status: COMPLETED Source: [facility] Visit type: Established Sruthi ent Reason for Visit: Follow-up and Parkinson's Disease Assessment and Plan 1. Lumbar radiculopathy 2. Left leg weakness 3. Left leg numbness 4. Memory loss 5. Essential tremor - primidone (Mysoline) 250 MG tablet; Take 1 tablet (250 mg) by mouth 3 times daily., Starting 08/17/2025, Until 11/15/2025, Normal - gabapentin (Neurontin) 600 MG tablet; Take 1 tablet (600 mg) by mouth 3 times daily., Starting Sun08/17/2025, Until Sun11/15/2025, Normal 6. Parkinson's disease without dyskinesia, with fluctuating manifestations (HCC) - pramipexole (Mirapex) 0.75 MG tablet; Take 1 tablet (0.75 mg) by mouth 3 times daily., Starting Sun08/17/2025, Until Sun08/17/2026, Normal - carbidopa-levodopa CR (Sinemet CR) 50-200 MG ER tablet; Take 1 tablet by mouth Nightly. Do not crush or chew., Starting Sun08/17/2025, Until 11/15/2025, Normal - carbidopa-levodopa (Sinemet) 25-100 MG tablet; Take 2 tablets by mouth 2 times daily. QAM and Q afternoon., Starting Sun08/17/2025, Until 11/15/2025, Normal 7. Lumbar polyradiculopathy - gabapentin (Neurontin) 600 MG tablet; Take 1 tablet (600 mg) by mouth 3 times daily., Starting Sun08/17/2025, Until 11/15/2025, Normal 8. Sensorimotor neuropathy - gabapentin (Neurontin) 600 MG tablet; Take 1 tablet (600 mg) by mouth 3 times daily., Starting Sun08/17/2025, Until 11/15/2025, Normal Subjective HPI: He has not fallen for 10 days. He reports that the PT is helping. No pain with the weakness in the left leg. He reports that the tremors are not controlled. No dysphagia. Trouble getting out of chairs. REVIEW OF SYSTEMS: Review of Systems Constitutional: [...] allergies and immunocompromised state. Neurological: Positive for tremors and weakness. Negative for dizziness and numbness. Falls Memory loss Hematological: Negative for adenopathy. Does not bruise/bleed easily. Psychiatric/Behavioral: Negative for agitation, behavioral problems, decreased concentration, sleep disturbance and suicidal ideas. All other systems reviewed and are negative. Allergies[1] Current Medications[2] Medical History[3] Social History Tobacco Use Smoking status: Every Day Current packs/day: 0.00 Average packs/day: 0.3 packs/day for 105.6 years (35.2 ttl pk-yrs) Types: Cigarettes, Cigars Start date: 03/26/1952 Last attempt to quit: 08/26/2024 Years since quittin.9 Smokeless tobacco: Never Tobacco comments: Still smoking Substance Use Topics Alcohol use: Not Currently Comment: I might have 3-4 beers a year Surgical History[4] Family History[5] Objective Vitals: BP 114/68 (BP Location: Right arm, Patient Position: Sitting, BP Cuff Size: Large adult) Pulse 58 Ht 5' 8" (1.727 m) Wt 242 lb 9.6 oz (110 kg) BMI 36.89 kg/m? General Appearance: Patient is in no apparent distress. Head is normocephalic, atraumatic Cardiovascular: Regular rate and rhythm. No heart murmurs. No carotid bruit Neurologic: Mentation: Alert and oriented x 3 to [address], [address] and time. Speech and Language: Speech and language normal Concentration and Attention: Concentration normal Memory: Memory 3/3 immed, 0/3 short (got 2 with clues) Fund of Knowledge: Fund of knowledge normal Cranial Nerves: II, III, IV, V, , VII, VIII, IX, X, XI, XII examined and were intact. Motor: Strength: Strength 5 out of 5 with normal tone even in the legs Alternating Movements: slow finger tap bilaterally Cogwheel Rigidity: Right Tone: Tone is normal Tremor / Involuntary Movements: Right>left. Deep Tendon Reflexes: 1 out of 4 symmetrical in all four limbs. Sensory: Decreased in the distal lateral anterior area.. Coordination: dysmetric with FTN, but related to tremor? Gait and Station: Station has to use his arms. Gait his left hip everts and he limps some, but overall not bad. Data Reviewed and Summarized DIAGNOSTIC TESTING PT/INR: Lab Results Component Value Date INR 1 11/27/2024 Narrative & Impression Patient Name: AKASH CRAMER : 1940 Exam Date/Time: 06/29/2025 07:14 Procedure: MR BRAIN WO CONTRAST Ordering Provider: GTZ SHAYNA Reason For Exam: Neuro deficit, acute, stroke suspected; frequent falls EXAMINATION: MR BRAIN WO CONTRAST HISTORY: Neuro deficit, acute, stroke suspected; frequent falls. Left leg weakness. TECHNIQUE: Multiplanar, multisequence MRI of the brain was performed without contrast. COMPARISON: None available RESULT: Acute Change: There is no evidence of restricted diffusion to suggest an acute infarct. Hemorrhage: Punctate focus of susceptibility artifact in the right temporal lobe, likely sequelae of remote microhemorrhage. No adjacent edema. Mass Lesion/ Mass Effect: No evidence of an intracranial mass or extra-axial fluid collection. No significant mass effect. Chronic Change: Scattered patchy areas of increased T2 and FLAIR signal are present in the supratentorial white matter and jair which is a nonspecific finding but likely represents mild chronic microvascular ischemia. Parenchyma: There is moderate generalized parenchymal volume loss. Ventricles: Ventriculomegaly corresponds to the degree of parenchymal volume loss. Skull Base: Hypothalamic and pituitary region are grossly normal. Craniocervical junction is normal. No significant marrow replacement process. Vasculature: Major intracranial arterial structures, and dural venous sinuses show typical flow void, suggesting patency by spin echo criteria. Other: The visualized paranasal sinuses and mastoid air cells are clear. Bilateral lens replacements. The orbits and extracranial soft tissues are unremarkable. IMPRESSION: No acute intracranial abnormality. Chronic parenchymal changes as described. Report Dictated on Electronically Signed By: Suresh Machuca MD Electronically Signed Date/Time: 06/30/2025 12:22 PM EDT MR brain wo contrast Narrative: Patient Name: AKASH CRAMER : 1940 Exam Date/Time: 06/29/2025 07:14 Procedure: MR BRAIN WO CONTRAST Ordering Provider: GTZ SHAYNA Reason For Exam: Neuro deficit, acute, stroke suspected; frequent falls EXAMINATION: MR BRAIN WO CONTRAST HISTORY: Neuro deficit, acute, stroke suspected; frequent falls. Left leg weakness. TECHNIQUE: Multiplanar, multisequence MRI of the brain was performed without contrast. COMPARISON: None available RESULT: Acute Change: There is no evidence of restricted diffusion to suggest an acute infarct. Hemorrhage: Punctate focus of susceptibility artifact in the right temporal lobe, likely sequelae of remote microhemorrhage. No adjacent edema. Mass Lesion/ Mass Effect: No evidence of an intracranial mass or extra-axial fluid collection. No significant mass effect. Chronic Change: Scattered patchy areas of increased T2 and FLAIR signal are present in the supratentorial white matter and jair which is a nonspecific finding but likely represents mild chronic microvascular ischemia. Parenchyma: There is moderate generalized parenchymal volume loss. Ventricles: Ventriculomegaly corresponds to the degree of parenchymal volume loss. Skull Base: Hypothalamic and pituitary region are grossly normal. Craniocervical junction is normal. No significant marrow replacement process. Vasculature: Major intracranial arterial structures, and dural venous sinuses show typical flow void, suggesting patency by spin echo criteria. Other: The visualized paranasal sinuses and mastoid air cells are clear. Bilateral lens replacements. The orbits and extracranial soft tissues are unremarkable. Impression: No acute intracranial abnormality. Chronic parenchymal changes as described. Report Dictated on Electronically Signed By: Suresh Machuca MD Electronically Signed Date/Time: 06/30/2025 12:22 PM EDT @LASTAPPOINTMENTTHISPROV@ IMPRESSION and PLAN: Problem List Items Addressed This Visit None Visit Diagnoses Lumbar radiculopathy - Primary Left leg weakness Left leg numbness Memory loss Essential tremor Relevant Medications primidone (Mysoline) 250 MG tablet gabapentin (Neurontin) 600 MG tablet Parkinson's disease without dyskinesia, with fluctuating manifestations (HCC) Relevant Medications pramipexole (Mirapex) 0.75 MG tablet carbidopa-levodopa CR (Sinemet CR) 50-200 MG ER tablet carbidopa-levodopa (Sinemet) 25-100 MG tablet Lumbar polyradiculopathy Relevant Medications gabapentin (Neurontin) 600 MG tablet Sensorimotor neuropathy Relevant Medications gabapentin (Neurontin) 600 MG tablet The exam and history are worrisome for a lumbar spine process causing the leg weakness and numbness. He is still in PT. Will follow. May need EMG/NCS and MRI l-spine in future. He is having memory loss on exam today and this has been a recent reports of memory issues from his . Today I was not able to delve into this, but it will need to be addressed in the future. His tremor initially was a classic ET tremor and still sometimes will have aspects of that, but has since become a PD tremor and process. I will maintain the current regimen. I noticed some dysmetric movement of face/lips and shoulders during exam today so did not change meds. Nina Tineo MD Electronically signed by Nina Tineo MD on @TDNR@ at @NOWNR@ [1] Allergies Allergen Reactions Cefepime Hives Other Reaction(s): Allergic reaction Cefazolin Rash Other Reaction(s): Allergic reaction [2] Current Outpatient Medications: Breztri Aerosphere 160-9-4.8 MCG/ACT [...] tablet by mouth daily., Disp: , Rfl: simvastatin (Zocor) 40 MG tablet, Take 40 mg by mouth Nightly., Disp: , Rfl: carbidopa-levodopa (Sinemet) 25-100 MG tablet, Take 2 tablets by mouth 2 times daily. QAM and Q afternoon., Disp: 360 tablet, Rfl: 3 carbidopa-levodopa CR (Sinemet CR) 50-200 MG ER tablet, Take 1 tablet by mouth Nightly. Do not crush or chew., Disp: 90 tablet, Rfl: 3 gabapentin (Neurontin) 600 MG tablet, Take 1 tablet (600 mg) by mouth 3 times daily., Disp: 270 tablet, Rfl: 3 glimepiride (Amaryl) 4 MG tablet, Take 1 tablet by mouth daily., Disp: , Rfl: pramipexole (Mirapex) 0.75 MG tablet, Take 1 tablet (0.75 mg) by mouth 3 times daily., Disp: 90 tablet, Rfl: 2 primidone (Mysoline) 250 MG tablet, Take 1 tablet (250 mg) by mouth 3 times daily., Disp: 270 tablet, Rfl: 3 [3] Past Medical History: Diagnosis Date Bladder cancer (HCC) CAD (coronary artery disease) Cancer (CMS/HCC) (HCC) Parkinson disease (HCC) Prostate cancer (HCC) Tremor [4] Past Surgical History: Procedure Laterality Date CORONARY ARTERY BYPASS GRAFT [5] Family History Problem Relation Name Age of Onset Stomach cancer Mother Heart attack Father 29 Observed: 08/17/2025 10:40 AM Status: COMPLETED Source: [facility] Addended by: INNA TINEO on: 08/17/2025 11:14 AM Modules accepted: Orders CBC Collected: 9:12 AM Status: F Source: [facility] TYPE CODE TESTS RESULT OUT OF RANGE REFERENCE UNITS LAB WBC(LOINC) WBC 5.1 4.5-10.8 10 3/mcL LAB RBCCT(LOINC) RBC 4.07 Low 4.50-6.00 10 6/mcL LAB HGB(LOINC) Hgb 13.2 13.0-17.5 G/dL LAB HCT(LOINC) Hct 39.2 Low 40.0-52.0 % LAB MCV(LOINC) MCV 96.3 81.0-100.0 fL LAB MCH(LOINC) MCH 32.3 27.0-33.0 pg LAB MCHC(LOINC) MCHC 33.5 32.0-36.0 G/dL LAB RDW(LOINC) RDW 13.9 11.5-15.5 % LAB PLT(LOINC) Platelet 256 150-450 10 3/mcL LAB MPV(LOINC) MPV 8.0 6.4-10.5 fL Performed By: #### IBC, FE, ADIFF, LIPID, CBC, ANEU, GFR, A1C, VIDH, CMP #### [address] [address] #### PTH #### [address] [address] .AUTO DIFF Collected: 07/28/2025 9:12 AM Status: F Source: [facility] TYPE CODE TESTS RESULT OUT OF RANGE REFERENCE UNITS LAB BENNETT(LOINC) Neutrophil % 56.8 50.0-75.0 % LAB LYM(LOINC) Lymphocyte % 33.6 20.0-40.0 % LAB MON(LOINC) Monocyte % 8.0 2.0-13.0 % LAB EO(LOINC) Eosinophil % 1.1 0.0-6.0 % LAB BAS(LOINC) Basophil % 0.5 0.0-2.5 % LAB ABLYM(LOINC) Lymphocyte, Absolute 1.7 0.9-4.3 10 3/mcL LAB CELE(LOINC) Monocyte, Absolute 0.4 0.1-1.4 10 3/mcL LAB AEOS(LOINC) Eosinophil, Absolute 0.1 0.0-0.7 10 3/mcL LAB ABAS(LOINC) Basophil, Absolute 0.0 0.0-0.3 10 3/mcL Performed By: #### IBC, FE, ADIFF, LIPID, CBC, ANEU, GFR, A1C, VIDH, CMP #### [address] [address] #### PTH #### [place] [address] .NEUABS Collected: 9:12 AM Status: F Source: [facility] TYPE CODE TESTS RESULT OUT OF RANGE REFERENCE UNITS LAB ANEU(LOINC) Neutrophil, Absolute 2.9 2.3-8.1 10 3/mcL Performed By: #### IBC, FE, ADIFF, LIPID, CBC, ANEU, GFR, A1C, VIDH, CMP #### [address] [address] #### PTH #### [place] [address] CMP Collected: 07/28/2025 9:12 AM Status: F Source: [facility] TYPE CODE TESTS RESULT OUT OF RANGE REFERENCE UNITS LAB GLU(LOINC) Glucose Level 156 High 83-110 mg/dL LAB NA(LOINC) Sodium Level 135 Low 136-145 mmol/L LAB K(LOINC) Potassium Level 4.9 3.5-5.1 mmol/L LAB CL(LOINC) Chloride 100 98-107 mmol/L LAB CO2(LOINC) CO2 29 23-31 mmol/L LAB EBAL(LOINC) Electrolyte Balance 6.0 4.0-15.0 mEq/L LAB BUN(LOINC) BUN 26 High 7-18 mg/dL LAB CRE(LOINC) Creatinine Lvl (s) 1.22 High 0.67-1.17 mg/dL LAB BC(LOINC) BUN/Creatinine Ratio 21 7-27 ratio LAB CA(LOINC) Calcium Lvl 9.2 8.4-10.2 mg/dL LAB PROT(LOINC) Total Protein 7.7 6.4-8.2 G/dL LAB ALB(LOINC) Albumin Level 3.4 3.4-4.8 G/dL LAB GLB(LOINC) Globulin 4.3 2.7-4.4 G/dL LAB AG(LOINC) A/G Ratio 0.8 Low 1.1-2.5 ratio LAB BILT(LOINC) Bili Total 0.3 0.2-1.0 mg/dL Result Comment: Use of this assay is not recommended for patients undergoing treatment with eltrombopag due to the potential for falsely elevated results. LAB AP(LOINC) Alk Phos 103 40-135 U/L LAB AST(LOINC) AST/SGOT 18 10-40 U/L LAB ALT(LOINC) ALT/SGPT 15 Low 16-63 U/L Performed By: #### IBC, FE, ADIFF, LIPID, CBC, ANEU, GFR, A1C, VIDH, CMP #### [address] [address] #### PTH #### [address] [address] .GFR Collected: 07/28/2025 9:12 AM Status: F Source: [facility] TYPE CODE TESTS RESULT OUT OF RANGE REFERENCE UNITS LAB eGFR(LOINC) Estimated Glomerular Filtration Rate 59 ml/min/1. 73sqm Result Comment: Stages of Chronic Kidney Disease (CKD) Stage Description eGFR(ml/min/1.73 sq.m.) CKD 1 Normal kidney function or >=90 normal kindney function with possible kidney damage (ex. Proteinuria) CKD 2 Kidney damage with mild loss 60-89 of kidney function CKD 3a Mild to moderate loss of kidney 45-59 function CKD 3b Moderate to severe loss of 30-44 of kindey function CKD 4 Severe loss of kidney function 15-29 CKD 5 Kidney failure <15 Note: (go live 2024) the eGFR calculation was updated to the 2020 CKD-EPI creatinine equation without a race factor to calculate the eGFR results. Performed By: #### IBC, FE, ADIFF, LIPID, CBC, ANEU, GFR, A1C, VIDH, CMP #### [address] [address] #### PTH #### [address] [address] LIPID Collected: 07/28/2025 9:12 AM Status: F Source: [facility] TYPE CODE TESTS RESULT OUT OF RANGE REFERENCE UNITS LAB CHOL(LOINC) Cholesterol 156 0-200 mg/dL Result Comment: Cholesterol Reference Interval: Less than 200 Desirable 200-239 Borderline high risk 240 and above High risk LAB TRIG(LOINC) Triglycerides 105 0-150 mg/dL Result Comment: Triglyceride Reference Interval: Less than 150 Normal 150-199 Borderline high risk 200-499 High risk 500 or higher Very high risk LAB HD(LOINC) HDL Cholesterol 55 40-60 mg/dL LAB LDL(LOINC) LDL Cholesterol 80 0-130 mg/dL Performed By: #### IBC, FE, ADIFF, LIPID, CBC, ANEU, GFR, A1C, VIDH, CMP #### [address] [address] #### PTH #### [place] [id number] FE Collected: 9:12 AM Status: F Source: [facility] TYPE CODE TESTS RESULT OUT OF RANGE REFERENCE UNITS LAB FE(LOINC) Iron 66 65-175 mcg/dL Performed By: #### IBC, FE, ADIFF, LIPID, CBC, ANEU, GFR, A1C, VIDH, CMP #### [address] [address] #### PTH #### [place] [id number] VIDH Collected: 9:12 AM Status: F Source: [facility] TYPE CODE TESTS RESULT OUT OF RANGE REFERENCE UNITS LAB VIDH([facility]) Vit. D 25-Hydroxy 40.8 ng/mL Result Comment: Interpretive Values Based on Total 25(OH) Vitamin D: Deficient <20 ng/mL Insufficient 20 - <30 ng/mL Sufficient 30-100 ng/mL Performed By: #### IBC, FE, ADIFF, LIPID, CBC, ANEU, GFR, A1C, VIDH, CMP #### [address] [address] #### PTH #### [address] [address] IBC Collected: 9:12 AM Status: F Source: [facility] TYPE CODE TESTS RESULT OUT OF RANGE REFERENCE UNITS LAB IBC([facility]) TIBC 309 250-450 mcg/dL Performed By: #### IBC, FE, ADIFF, LIPID, CBC, ANEU, GFR, A1C, VIDH, CMP #### [address] [address] #### PTH #### [address] [address] A1C Collected: 9:12 AM Status: F Source: [facility] TYPE CODE TESTS RESULT OUT OF RANGE REFERENCE UNITS LAB A1C([facility]) Hgb A1c 11.0 High 4.3-6.4 % LAB eAG([facility]) Est Avg Glucose 269 mg/dL Result Comment: Estimated Av erage Glucose calculated by equation ((28.7xA1C)- 46.7) Estimated average glucose (eAG) is a calculated value from Hemoglobin A1C and is medical billing representative of the average blood glucose level in the last 2-3 month period. Normal range: less than 114 mg/dL Performed By: #### IBC, FE, ADIFF, LIPID, CBC, ANEU, GFR, A1C, VIDH, CMP #### [address] [address] #### PTH #### [address] [address] PTH Collected: 9:12 AM Status: F Source: [facility] TYPE CODE TESTS RESULT OUT OF RANGE REFERENCE UNITS LAB PTH(LOINC) PTH, Intact 21.4 18.5-88.0 pg/mL Performed By: #### IBC, FE, ADIFF, LIPID, CBC, ANEU, GFR, A1C, VIDH, CMP #### [facility] [address] [place], [place] [address] #### PTH #### [facility] [address] [place] [id number] Observed: 07/03/2025 8:34 AM Status: COMPLETED Source: [employer] [facility] Phoned patient's to rev iew MRI results. She states PT is helping. No further questions. 36 Observed: 07/02/2025 4:17 PM Status: COMPLETED Source: [employer] [facility] Forwarding to provider for r eview and advice. 36 Observed: 07/02/2025 4:06 PM Status: COMPLETED Source: [employer] Name of caller: Kristy Contact phone number: [phone] Relationship to Patient: spouse/SO Provider: CELIA Mitchell CNP Practice: [facility] Chief Complaint/Reason for Call: Kristy is requesting a call back regarding Akash's MRI brain results. Please contact Kristy and advise. Best time of day caller can be reached: Any Patient advised that office/PCP has 24-48 business hours to return their call: Yes 36 Observed: 07/01/2025 8:54 AM Status: COMPLETED Source: [employer] Name of caller: Kristy Contact phone number: [phone] Relationship to Patient: spouse/SO Provider: YAO Gtz Practice: neuro Chief Complaint/Reason for Call: Kristy states she would like to know the results from the pt's MRI results. Please advise. Best time of day caller can be reached: any Patient advised that office/PCP has 24-48 business hours to return their call: N/A 36 Observed: 06/15/2025 11:04 AM Status: COMPLETED Source: [employer] [facility] Your patient has been schedu led for their MRI Brain W/O on 06/29/25 at [facility]. If testing requires an insurance authorization, the authorization must be in place 48 hours prior to the scheduled test or testing will be cancelled. Thank you, Central Scheduling OFFICE VISIT Observed: 06/09/2025 12:30 PM Status: COMPLETED Source: [facility] [employer] [facility] [id number] Akash Cramer [birth year] 44 M Date Provider Department Center 06/09/2025 [id number] GTZ [facility] [place] None Family History Problem Relation Age of Onset Stomach cancer Mother Heart attack Father Family Status - Relation Status Age at Mother Father Level of Service:56975 MA OFFICE/OUTPATIENT ESTABLISHED LOW MDM 20 MIN Reason for Visit and Comments: Follow-up [433096] Gait Problem [945681] - Falls. Patient has had 5 falls in less than a week Tremors [989906] PROGRESS NOTE Observed: 06/09/2025 12:30 PM Status: COMPLETED Source: [facility] Visit type: Established Sruthi ent Reason for Visit: Follow-up, Gait Problem (Falls. Patient has had 5 falls in less than a week), and Tremors Assessment and Plan 1. Parkinson's disease without dyskinesia, with fluctuating manifestations (HCC) 2. Falls frequently 3. Weakness Subjective HPI: Patient came in today because he has fallen 5 times in less than a week; states his leg "just goes" - his legs won't hold him up; after getting out of the shower the other day, his legs wouldn't move and he went down. States the leg weakness wasn't this bad at last visit. Chronic back pain that causes him to hunch over because of pain Denies trouble getting off chairs if they are high enough; denies choking Feet will freeze; doesn't think adding the pramipexole has helped; tolerating Last weekend, states he was having trouble memory; she felt this was due to a UTI because he had similar symptoms with the last UTI that hospitalized him,; PCP has them keep cipro rx at home in case this happens again; he took the cipro last week and it helped. Denies dizziness REVIEW OF SYSTEMS: Review of Systems Neurological: Positive for tremors and weakness. Negative for dizziness and numbness. Falls All other systems reviewed and are negative. Allergies[1] Current Medications[2] Medical History[3] Social History Tobacco Use Smoking status: Every Day Current packs/day: 0.00 Average packs/day: 0.3 packs/day for 70.4 years (17.6 ttl pk-yrs) Types: Cigarettes Start date: 03/26/1952 Last attempt to quit: 08/26/2024 Years since quittin.7 Smokeless tobacco: Never Tobacco comments: Still smoking Substance Use Topics Alcohol use: Not Currently Comment: I might have 3-4 beers a year Surgical History[4] Family History[5] Objective Vitals: BP 104/58 (BP Location: Right arm, Patient Position: Sitting, BP Cuff Size: Large adult) Pulse 66 Ht 5' 8" (1.727 m) Wt 247 lb (112 kg) BMI 37.56 kg/m? General Appearance: Patient is in no apparent [...] Strength 5 out of 5 with normal tone, except 4/5 right deltoid; 4/6 bilateral hip flexors and knee extension, left ankle dorsiflexor Alternating Movements: slow finger tap bilaterally Cogwheel Rigidity: None Tone: Tone is normal Tremor / Involuntary Movements: positional bilaterally, worse on right Deep Tendon Reflexes: 1 out of 4 symmetrical in all four limbs. Sensory: Normal sensation upper; no pinprick sensation in ankles circumferentially Coordination: dysmetric with FTN, but related to tremor? Gait and Station: Station - weak to stand; Gait - stooping; unsteady on turn; legs get caught under him a little Data Reviewed and Summarized DIAGNOSTIC TESTING CBC: No results found for: "WBC", "RBC", "HGB", "HCT", "MCV", "MCH", "MCHC", "RDW", "PLT", "MPV" CMP: No results found for: "NA", "K", "CL", "CO2", "BUN", "CREATININE", "AGRATIO", "LABGLOM", "GLUCOSE", "GLU", "PROT", "CALCIUM", "BILITOT", "ALKPHOS", "AST", "ALT" BMP: No results found for: "NA", "K", "CL", "CO2", "BUN", "CREATININE", "CALCIUM", "LABGLOM", "GLUCOSE", "GLU" PT/INR: Lab Results Component Value Date INR 1 11/27/2024 PTT: No results found for: "APTT", "PTT"[APTT} FLP: No results found for: "CHLPL", "TRIG", "HDL", "LDLCALC", "LDLDIRECT" TSH: No results found for: "TSH" VITAMIN B12: No results found for: "GPQETQTN10" No results found for: "PHENYTOIN", "PHENOBARB", "VALPROATE", "CBMZ" No components found for: "TOPIRA" @RESULTINGLABINFO@ No results found for: "LEVETIRACETA", "FERRITIN", "CRP", "SWATI", "ANCA" No results found for: "ODETTE", "IMMUNOGLOBUL", "OLIGOBANDS" No results found for: "OOB29VB", "HEPCAB" No results found for: "CRP", "ANATITER", "ANCA" FERRITIN: No results found for: "FERRITIN" ---- OUTSIDE IMAGING SCAN Ordered by an unspecified provider. @LASTAPPOINTMENTTHISPROV@ IMPRESSION and PLAN: Problem List Items Addressed This Visit None Visit Diagnoses Parkinson's disease without dyskinesia, with fluctuating manifestations (HCC) - Primary Falls frequently Weakness He is having frequent falls in the last week; it is medically necessary for him to have MRI brain to ensure no stroke to be contributing. Will increase pramipexole to .75mg TID and continue current carbidopa-levodopa 25/100 BID carbidopa-levodopa CR 50/200. Order placed for PT RTO as scheduled with Dr. Rivka Gtz APRN - YAO Electronically signed by CELIA Mitchell CNP on @TDNR@ at @NOWNR@ [1] Allergies Allergen Reactions Cefepime Hives Other Reaction(s): Allergic reaction Cefazolin Rash Other Reaction(s): Allergic reaction [2] Current Outpatient Medications: Breztri Aerosphere 160-9-4.8 MCG/ACT aerosol, , Disp: , Rfl: carbidopa-levodopa (Sinemet) 25-100 MG tablet, Take 2 tablets by mouth 2 times daily. QAM and Q afternoon., Disp: 360 tablet, Rfl: 3 carbidopa-levodopa CR (Sinemet CR) 50-200 MG ER tablet, Take 1 tablet by mouth Nightly. Do not crush or chew., Disp: 90 tablet, Rfl: 3 DULoxetine (Cymbalta) [address] capsule, Take 60 mg by mouth in the morning and 60 mg in the evening., Disp: , Rfl: ferrous sulfate 325 (65 Fe) MG tablet, Take 1 tablet by mouth daily., Disp: , Rfl: gabapentin (Neurontin) 600 MG tablet, Take 1 tablet (600 mg) by mouth 3 times daily., Disp: 270 tablet, Rfl: 3 ipratropium (Atrovent) 0.02 % nebulizer solution, , Disp: , Rfl: omega-3 (Fish Oil) 1000 MG capsule, Take 1,000 mg by mouth daily., Disp: , Rfl: pioglitazone (Actos) 45 MG tablet, Take 1 tablet by mouth daily., Disp: , Rfl: primidone (Mysoline) 250 MG tablet, Take 1 tablet (250 mg) by mouth 3 times daily., Disp: 270 tablet, Rfl: 3 simvastatin (Zocor) 40 MG tablet, Take 40 mg by mouth Nightly., Disp: , Rfl: glimepiride (Amaryl) 4 MG tablet, Take 1 tablet by mouth daily., Disp: , Rfl: [3] Past Medical History: Diagnosis Date Bladder cancer (HCC) CAD (coronary artery disease) Cancer (CMS/HCC) (HCC) Parkinson disease (HCC) Prostate cancer (HCC) Tremor [4] Past Surgical History: Procedure Laterality Date CORONARY ARTERY BYPASS GRAFT [5] Family History Problem Relation Name Age of Onset Stomach cancer Mother Heart attack Father 36 Observed: 06/08/2025 2:43 PM Status: COMPLETED Source: [employer] [facility] S: Patient's spoke with [facility] nurse regarding frequent falls x5. B: Onset of symptoms/concern began Sunday. A: Patient had 1 fall Sunday, 1 fall , 2 falls Sunday, and 1 fall Sunday. States he falls without warning; falls backwards most of the time, so the walker is not of much benefit. Patient has Parkinson's and needs assistance getting up after he falls. states patient is getting weaker, thinks due to the Parkinson's. Hurt his chest last night when he fell. Was seen at [facility] in [place]. X-ray did not show any fractures. No dizziness or lightheadedness. R: Appt made with Jhon Gtz CNP for 06/09 at 12:30p. Insurance verified with patient as MM. Advised patient to bring photo ID, insurance card, and arrive 15 minutes early to appointment. Advised to have patient sit most of the time, bring his food to him, and stay out of the grass until seen; also advised to use his walker all the time. understands care advice. No further needs at this time. instructed to call back with new or worsening symptoms. Reason for Disposition MODERATE weakness (e.g., interferes with work, school, normal activities) and new-onset or getting worse Protocols used: Falls and [id number] 36 Observed: 05/12/2025 3:50 PM Status: COMPLETED Source: [employer] [facility] Spoke to Elma at [facility], meds were delivered on April 30 to pt. 36 Observed: 05/12/2025 3:07 PM Status: COMPLETED [facility] Was this ever resolved? [facility] Collected: 05/07/2025 4:57 PM Status: F Source: [facility] TYPE CODE TESTS RESULT OUT OF RANGE REFERENCE UNITS LAB UAMP(LOINC) Amphetamine (u) Negative Negative LAB UBAR(LOINC) Barbiturate (u) Positive Abnormal Negative LAB UBNZ(LOINC) Benzodiazepine (u) Negative Negative LAB UCAN(LOINC) Cannabinoid (u) Negative Negative LAB UCOC(LOINC) Cocaine (u) Negative Negative LAB UMETH(LOINC) Methadone (u) Negative Negative LAB UOPI(LOINC) Opiate (u) Negative Negative LAB UPCP(LOINC) PCP (u) Negative Negative LAB UDS0(LOINC) Urine Drugs screened: See Below Result Comment: This drug sc reen is a presumptive screening only. No confirmation will be performed unless requested. Drugs screened include: Threshold Amphetamines/Methamphetamines 1,000 ng/mL Barbiturates 200 ng/mL Benzodiazepine metabolites 200 ng/mL Cannabinoids (THC metabolites) 50 ng/mL Cocaine 300 ng/mL Opiates 300 ng/mL Methadone 300 ng/mL Phencyclidine (PCP) 25 ng/mL Testing has been performed FOR MEDICAL PURPOSES ONLY. Performed By: #### [facility] ### # [id number] [place], [place] [address] 36 Observed: 04/27/2025 3:08 PM Status: COMPLETED [facility]: [facility] Name of caller: Kristy Contact phone number: [phone] Relationship to Patient: patient spouse Provider: Dr. Tineo Practice: Neurology Chief Complaint/Reason for Call: Patient spouse called and advised that [facility] will not fill pramipexole (Mirapex) and would not explain why. Please advise. Best time of day caller can be reached: Any Patient advised that office/PCP has 24-48 business hours to return their call: Yes PROGRESS NOTE Observed: 04/27/2025 10:40 AM Status: COMPLETED Source: [facility] [employer] [facility] [address] [place] [address] [facility] [address] Dept: [phone] Dept Loc: [phone] Visit type: Established Patient Reason for Visit: Follow-up and Memory Loss Assessment and Plan 1. Parkinson's disease without dyskinesia, with fluctuating manifestations (HCC) - pramipexole (Mirapex) 0.5 MG tablet; Take 1 tablet (0.5 mg) by mouth 3 times daily., Starting Sun04/27/2025, Until 07/26/2025, Normal - carbidopa-levodopa (Sinemet) 25-100 MG tablet; Take 2 tablets by mouth 2 times daily. QAM and Q afternoon., Starting Sun04/27/2025, Until 07/26/2025, Normal - carbidopa-levodopa CR (Sinemet CR) 50-200 MG ER tablet; Take 1 tablet by mouth Nightly. Do not crush or chew., Starting Sun04/27/2025, Until 07/26/2025, Normal 2. Essential tremor - gabapentin (Neurontin) 600 MG tablet; Take 1 tablet (600 mg) by mouth 3 times daily., Starting 04/27/2025, Until 07/26/2025, Normal - primidone (Mysoline) 250 MG tablet; Take 1 tablet (250 mg) by mouth 3 times daily., Starting Sun04/27/2025, Until 07/26/2025, Normal 3. Lumbar polyradiculopathy - gabapentin (Neurontin) 600 MG tablet; Take 1 tablet (600 mg) by mouth 3 times daily., Starting Sun04/27/2025, Until 07/26/2025, Normal 4. Sensorimotor neuropathy - gabapentin (Neurontin) 600 MG tablet; Take 1 tablet (600 mg) by mouth 3 times daily., Starting Sun04/27/2025, Until 07/26/2025, Normal Subjective HPI: He has had falls. But no injuries. He and his are not noticing much change in the tremors with the change in the Sinemet. He still has significant tremors. He denies dysphagia or voice changes. He does have trouble getting up and out of chairs. REVIEW OF SYSTEMS: Review of Systems Constitutional: [...] decreased concentration, sleep disturbance and suicidal ideas. Allergies Allergen Reactions Cefepime Hives Other Reaction(s): Allergic reaction Cefazolin Rash Other Reaction(s): Allergic reaction Current Outpatient Medications: Breztri Aerosphere 160-9-4.8 MCG/ACT aerosol, , Disp: , Rfl: DULoxetine (Cymbalta) [address] capsule, Take 60 mg by mouth in the morning and 60 mg in the evening., Disp: , Rfl: ferrous sulfate 325 (65 Fe) MG tablet, Take 1 tablet by mouth daily., Disp: , Rfl: glimepiride (Amaryl) 4 MG tablet, Take 1 tablet by mouth daily., Disp: , Rfl: ipratropium (Atrovent) 0.02 % nebulizer solution, , Disp: , Rfl: omega-3 (Fish Oil) 1000 MG capsule, Take 1,000 mg by mouth daily., Disp: , Rfl: pioglitazone (Actos) 45 MG tablet, Take 1 tablet by mouth daily., Disp: , Rfl: simvastatin (Zocor) 40 MG tablet, Take 40 mg by mouth Nightly., Disp: , Rfl: carbidopa-levodopa (Sinemet) 25-100 MG tablet, Take 2 tablets by mouth 2 times daily. QAM and Q afternoon., Disp: 360 tablet, Rfl: 3 carbidopa-levodopa CR (Sinemet CR) 50-200 MG ER tablet, Take 1 tablet by mouth Nightly. Do not crush or chew., Disp: 90 tablet, Rfl: 3 gabapentin (Neurontin) 600 MG tablet, Take 1 tablet (600 mg) by mouth 3 times daily., Disp: 270 tablet, Rfl: 3 pramipexole (Mirapex) 0.5 MG tablet, Take 1 tablet (0.5 mg) by mouth 3 times daily., Disp: 270 tablet, Rfl: 3 primidone (Mysoline) 250 MG tablet, Take 1 tablet (250 mg) by mouth 3 times daily., Disp: 270 tablet, Rfl: 3 Past Medical History: Diagnosis Date Bladder cancer (HCC) CAD (coronary artery disease) Cancer (CMS/HCC) (HCC) Parkinson disease (HCC) Prostate cancer (HCC) Tremor Social History Tobacco Use Smoking status: Every Day Current packs/day: 0.00 Average packs/day: 0.3 packs/day for 70.4 years (17.6 ttl pk-yrs) Types: Cigarettes Start date: [birth year]/26/1952 Last attempt to quit: 08/26/2024 Years since quittin.6 Smokeless tobacco: Never Tobacco comments: Still smoking Substance Use Topics Alcohol use: Not Currently Comment: I might have 3-4 beers a year Past Surgical History: Procedure Laterality Date CORONARY ARTERY BYPASS GRAFT Family History Problem Relation Name Age of Onset Stomach cancer Mother Heart attack Father Objective Vitals: BP 121/64 (BP Location: Left arm, Patient Position: Sitting, BP Cuff Size: Adult) Pulse 60 Ht 5' 9" (1.753 m) Wt 245 lb 12.8 oz (111 kg) BMI 36.30 kg/m? General Appearance: Patient is in no apparent distress. Head is normocephalic, atraumatic Cardiovascular: Regular rate and rhythm. No heart murmurs. No carotid bruit Neurologic: Mentation: Alert and oriented x 3 to person, place and year. Speech and Language: Speech and language normal Concentration and Attention: Concentration normal Memory: Memory grossly the same Fund of Knowledge: Fund of knowledge normal Cranial Nerves: II, III, IV, V, , VII, VIII, IX, X, XI, XII examined and were intact. Motor: Strength: Strength 5 out of 5 with normal tone. He has bradykinesia which causes him to be slow to get into position. Alternating Movements: Slowed in all four limbs Cogwheel Rigidity: None today but right arm is a bit stiffer than left Tone: Tone is normal Tremor / Involuntary Movements: Most of today's tremor is torsional and positional, some intention tremor. Deep Tendon Reflexes: 1 out of 4 symmetrical in all four limbs. Coordination: Normal but with tremor on approach to target in the hands, but normal in the legs. Gait and Station: Station is abnormal as he starts to fall backwards but catches himself with the chair. . Gait is only slightly better, still stooping and small steps but more stable on turning. Data Reviewed and Summarized DIAGNOSTIC TESTING NERVE CONDUCTION TEST/EMG FACILITY: [facility] REFERRING PHYSICIAN: Nina Tineo JR, MD TEST [...] or left-sided lumbosacral radiculopathy on this study. ---- OUTSIDE IMAGING SCAN Ordered by an unspecified provider. IMPRESSION and PLAN: Diagnosis Plan 1. Parkinson's disease without dyskinesia, with fluctuating manifestations (HCC) pramipexole (Mirapex) 0.5 MG tablet carbidopa-levodopa (Sinemet) 25-100 MG tablet carbidopa-levodopa CR (Sinemet CR) 50-200 MG ER tablet 2. Essential tremor gabapentin (Neurontin) 600 MG tablet primidone (Mysoline) 250 MG tablet 3. Lumbar polyradiculopathy gabapentin (Neurontin) 600 MG tablet 4. Sensorimotor neuropathy gabapentin (Neurontin) 600 MG tablet He is still significantly bradykinetic. We tried to use ropinirole four years or so ago and it failed. Pramipexole 0.5 mg TID to be added to the two forms of Sinemet I feel that we have maximized the dose on gabapentin and primidone. 3. Will follow. Nina Tineo MD I spent 30 minutes caring for this patient today, reviewing labs, records, seeing the patient, documenting in the record and arranging for studies. OFFICE VISIT Observed: 04/27/2025 10:40 AM Status: COMPLETED Source: [facility] [id number] Akash Cramer [birth year] 44 M Date Provider Department Center 04/27/2025 NINA MACDONALD SB [place] None Family History Problem Relation Age of Onset Stomach cancer Mother Heart attack Father Family Status - Relation Status Age at Mother Father Level of Service:51268 MA OFFICE/OUTPATIENT ESTABLISHED LOW MDM 20 MIN Reason for Visit and Comments: Follow-up [046669] Memory Loss [66] OFFICE VISIT Observed: 03/12/2025 10:20 AM Status: COMPLETED Source: [facility] [id number] Akash Cramer [birth year] 44 M Date Provider Department Center 03/12/2025 NINA MACDONALD SB [place] None Family History Problem Relation Age of Onset Stomach cancer Mother Heart attack Father Family Status - Relation Status Age at Mother Father Level of Service:31262 MA OFFICE/OUTPATIENT ESTABLISHED MOD MDM 30 MIN Reason for Visit and Comments: Follow-up [927461] Parkinson's Disease [385] PROGRESS NOTE Observed: 03/12/2025 10:20 AM Status: COMPLETED Source: [facility] [address] [facility] [address] [facility] [address] Dept: [phone] Dept Loc: [phone] Visit type: Established Patient Reason for Visit: Follow-up and Parkinson's Disease Assessment and Plan 1. Parkinson's disease without dyskinesia or fluctuating manifestations (HCC) - carbidopa-levodopa (Sinemet) 25-100 MG tablet; Take 2 tablets by mouth 2 times daily. QAM and Q afternoon., Starting Paula 03/12/2025, Until Sun06/10/2025, Normal - carbidopa-levodopa CR (Sinemet CR) 50-200 MG ER tablet; Take 1 tablet by mouth Nightly. Do not crush or chew., Starting Paula 03/12/2025, Until Sun06/10/2025, Normal 2. Essential tremor - primidone (Mysoline) 250 MG tablet; Take 1 tablet (250 mg) by mouth 3 times daily., Starting Paula 03/12/2025, Until Sun06/10/2025, Normal - gabapentin (Neurontin) 600 MG tablet; Take 1 tablet (600 mg) by mouth 3 times daily., Starting Paula 03/12/2025, Until Sun06/10/2025, Normal 3. Lumbar polyradiculopathy - gabapentin (Neurontin) 600 MG tablet; Take 1 tablet (600 mg) by mouth 3 times daily., Starting Paula 03/12/2025, Until Sun06/10/2025, Normal 4. Sensorimotor neuropathy - gabapentin (Neurontin) 600 MG tablet; Take 1 tablet (600 mg) by mouth 3 times daily., Starting Paula 03/12/2025, Until Sun06/10/2025, Normal Subjective HPI: He has had falls. He got an infection and was in the hospital. Then when he was home in November he slipped on ice and broke his ankles. He is unsteady on getting up. He has a lift chair and he is using a walker. He has chronic weakness in the left leg that he has had more trouble with it of late. He has had worsening tremor. He denies dysphagia. He has constipation and uses Miralax daily. REVIEW OF SYSTEMS: Review of Systems Constitutional: [...] decreased concentration, sleep disturbance and suicidal ideas. Allergies Allergen Reactions Cefepime Hives Other Reaction(s): Allergic reaction Cefazolin Rash Other Reaction(s): Allergic reaction Current Outpatient Medications: Breztri Aerosphere 160-9-4.8 MCG/ACT aerosol, , Disp: , Rfl: DULoxetine (Cymbalta) 60 MG capsule, Take 60 mg by mouth in the morning and 60 mg in the evening., Disp: , Rfl: ferrous sulfate 325 (65 Fe) MG tablet, Take 1 tablet by mouth daily., Disp: , Rfl: glimepiride (Amaryl) 4 MG tablet, Take 1 tablet by mouth daily., Disp: , Rfl: ipratropium (Atrovent) 0.02 % nebulizer solution, , Disp: , Rfl: omega-3 (Fish Oil) 1000 MG capsule, Take 1,000 mg by mouth daily., Disp: , Rfl: pioglitazone (Actos) 45 MG tablet, Take 1 tablet by mouth daily., Disp: , Rfl: simvastatin (Zocor) 40 MG tablet, Take 40 mg by mouth Nightly., Disp: , Rfl: carbidopa-levodopa (Sinemet) 25-100 MG tablet, Take 2 tablets by mouth 2 times daily. QAM and Q afternoon., Disp: 360 tablet, Rfl: 3 carbidopa-levodopa CR (Sinemet CR) 50-200 MG ER tablet, Take 1 tablet by mouth Nightly. Do not crush or chew., Disp: 90 tablet, Rfl: 3 gabapentin (Neurontin) 600 MG tablet, Take 1 tablet (600 mg) by mouth 3 times daily., Disp: 270 tablet, Rfl: 3 primidone (Mysoline) 250 MG tablet, Take 1 tablet (250 mg) by mouth 3 times daily., Disp: 270 tablet, Rfl: 3 Past Medical History: Diagnosis Date Bladder cancer (HCC) CAD (coronary artery disease) Cancer (CMS/HCC) (HCC) Parkinson disease (HCC) Prostate cancer (HCC) Tremor Social History Tobacco Use Smoking status: Every Day Current packs/day: 0.00 Average packs/day: 0.3 packs/day for 70.4 years (17.6 ttl pk-yrs) Types: Cigarettes Start date: [birth year]/26/1952 Last attempt to quit: 08/26/2024 Years since quittin.5 Smokeless tobacco: Never Tobacco comments: Still smoking Substance Use Topics Alcohol use: Not Currently Comment: I might have 3-4 beers a year Past Surgical History: Procedure Laterality Date CORONARY ARTERY BYPASS GRAFT Family History Problem Relation Name Age of Onset Stomach cancer Mother Heart attack Father Objective Vitals: BP 135/65 (BP Location: Left arm, Patient Position: Sitting, BP Cuff Size: Large adult) Pulse 56 Ht 5' 9" (1.753 m) Wt 246 lb 6.4 oz (112 kg) BMI 36.39 kg/m? General Appearance: Patient is in no apparent distress. Head is normocephalic, atraumatic Cardiovascular: Regular rate and rhythm. No heart murmurs. No carotid bruit Neurologic: Mentation: Alert and oriented x 3 to person, place and year. Speech and Language: Speech and language normal Concentration and Attention: Concentration normal Memory: Memory 3/3 immed, 3/3 short Fund of Knowledge: Fund of knowledge normal Cranial Nerves: II, III, IV, V, , VII, VIII, IX, X, XI, XII examined and were intact. Motor: Strength: Strength 5 out of 5 with normal tone in arms and hands.Left leg is normal on confrontation but clearly weaker than the right when standing/walking Alternating Movements: Normal Cogwheel Rigidity: A little worse in the right than the last exam and just barely there on the left Tone: Tone is normal Tremor / Involuntary Movements: Most of today's tremor is torsional and positional, some intention tremor. Deep Tendon Reflexes: 1 out of 4 symmetrical in all four limbs. Coordination: Normal but with tremor on approach to target in the hands, but normal in the legs. Gait and Station: Station is abnormal. Gait is small steps, and he is a bit unsteady on turning. Data Reviewed and Summarized DIAGNOSTIC TESTING NERVE CONDUCTION TEST/EMG FACILITY: [facility] REFERRING PHYSICIAN: Nina Tineo JR, MD TEST [...] or left-sided lumbosacral radiculopathy on this study. ---- OUTSIDE IMAGING SCAN Ordered by an unspecified provider. IMPRESSION and PLAN: Diagnosis Plan 1. Parkinson's disease without dyskinesia or fluctuating manifestations (HCC) carbidopa-levodopa (Sinemet) 25-100 MG tablet carbidopa-levodopa CR (Sinemet CR) 50-200 MG ER tablet 2. Essential tremor primidone (Mysoline) 250 MG tablet gabapentin (Neurontin) 600 MG tablet 3. Lumbar polyradiculopathy gabapentin (Neurontin) 600 MG tablet 4. Sensorimotor neuropathy gabapentin (Neurontin) 600 MG tablet He is to increase the daytime Sinemet to 25/100X2 in AM and in afternoon. Continue 50/200 ER at night. This was the dominant tremor today but I cannot safely go higher on the primidone or the gabapentin. 3. The left leg weakness is from lumbar radiculopathy and neuropathy. Nina Tineo MD I spent 30 minutes caring for this patient today, reviewing labs, records, seeing the patient, documenting in the record and arranging for studies. 36 Observed: 02/24/2025 10:53 AM Status: COMPLETED Source[facility] Angelique has been notified 36 Observed: 02/24/2025 10:48 AM Status: COMPLETED Source: [facility] He is supposed to be on samantha pentin 600 mg three times a day. 36 Observed: 02/23/2025 9:43 AM Status: COMPLETED Source: [facility] Message released to patient as written. Patient's further questions if applicable: Angelique is only asking because, on 02/06 when they signed him on for home care services, gabapentin wasn't on their list PCP list. Just calling to confirm he still on medication Were all questions from office addressed or relayed to the patient from encounter: N/A 36 Observed: 02/20/2025 1:14 PM Status: COMPLETED Source: [facility] Call to Angelique. Lm on VM to call the office, please send to the back line when returns call. Thank you. 36 Observed: 02/20/2025 12:26 PM Status: COMPLETED Source: [facility] Please ask her why she is as constantine if he still needs to be on gabapentin. Is she asking because he is out of refills or did something change in his condition that I am not aware of? This office has no information about him since his visit in August, did something happen? 36 Observed: 02/19/2025 11:55 AM Status: COMPLETED Source: [facility] Name of caller: Angelique Contact phone number: [phone] Relationship to Patient: Pattie [facility] Provider: Dr. Tineo Practice: [facility] Chief Complaint/Reason for Call: Angelique states she is calling to see if the patient still needs to take gabapentin (Neurontin) 600 MG tablet. Please review. Best time of day caller can be reached: any Patient advised that office/PCP has 24-48 business hours to return their call: Yes CBC Collected: 9:04 AM Status: F Source: [facility] TYPE CODE TESTS RESULT OUT OF RANGE REFERENCE UNITS LAB WBC(LOINC) WBC 5.4 4.5-10.8 10 3/mcL LAB RBCCT(LOINC) RBC 4.15 Low 4.50-6.00 10 6/mcL LAB HGB(LOINC) Hgb 13.1 13.0-17.5 G/dL LAB HCT(LOINC) Hct 39.5 Low 40.0-52.0 % LAB MCV(LOINC) MCV 95.3 81.0-100.0 fL LAB MCH(LOINC) MCH 31.7 27.0-33.0 pg LAB MCHC(LOINC) MCHC 33.3 32.0-36.0 G/dL LAB RDW(LOINC) RDW 14.5 11.5-15.5 % LAB PLT(LOINC) Platelet 226 150-450 10 3/mcL LAB MPV(LOINC) MPV 8.1 6.4-10.5 fL Performed By: #### ADIFF, IB C, CBC, FE, ANEU #### [address] [address] .AUTO DIFF Collected: 02/19/2025 9:04 AM Status: F Source: [facility] TYPE CODE TESTS RESULT OUT OF RANGE REFERENCE UNITS LAB BENNETT(LOINC) Neutrophil % 42.2 Low 50.0-75.0 % LAB LYM(LOINC) Lymphocyte % 46.6 High 20.0-40.0 % LAB MON(LOINC) Monocyte % 8.2 2.0-13.0 % LAB EO(LOINC) Eosinophil % 2.0 0.0-7.0 % LAB BAS(LOINC) Basophil % 1.0 0.0-2.5 % LAB ABLYM(LOINC) Lymphocyte, Absolute 2.5 0.9-4.3 10 3/mcL LAB CELE(LOINC) Monocyte, Absolute 0.4 0.1-1.4 10 3/mcL LAB AEOS(LOINC) Eosinophil, Absolute 0.1 0.0-0.7 10 3/mcL LAB ABAS(LOINC) Basophil, Absolute 0.1 0.0-0.2 10 3/mcL Performed By: #### ADIFF, IB C, CBC, FE, ANEU #### [address] [address] .NEUABS Collected: 9:04 AM Status: F Source: [facility] TYPE CODE TESTS RESULT OUT OF RANGE REFERENCE UNITS LAB ANEU(LOINC) Neutrophil, Absolute 2.3 2.3-8.1 10 3/mcL Performed By: #### ADIFF, IB C, CBC, FE, ANEU #### [address] [address] FE Collected: 9:04 AM Status: F Source: [facility] TYPE CODE TESTS RESULT OUT OF RANGE REFERENCE UNITS LAB FE(LOINC) Iron 80 65-175 mcg/dL Performed By: #### ADIFF, IB C, CBC, FE, ANEU #### [facility] [address] [place], [place] [address] IBC Collected: 9:04 AM Status: F Source: [facility] TYPE CODE TESTS RESULT OUT OF RANGE REFERENCE UNITS LAB IBC(LOINC) TIBC 338 250-450 mcg/dL Performed By: #### ADIFF, IB C, CBC, FE, ANEU #### [address] [place], [place] [address] CUR Observed: 02/05/2025 2:30 PM Status: F Source: [facility] . MICRO - Microbiology PROCEDURE: Urine Culture [*1] SOURCE: Urine, Clean Catch BODY SITE: COLLECTED DATE/TIME: 02/05/2025 14:30 EDT RECEIVED DATE/TIME: 02/05/2025 18:56 EDT START DATE/TIME: 02/05/2025 18:56 EDT FREE TEXT SOURCE: FINAL REPORTS Final Report [] Verified Date/Time/Personnel: 02/07/2025 07:52 EDT No growth at 48 hours. PRELIMINARY REPORTS Preliminary Report [] Verified Date/Time/Personnel: 02/06/2025 10:06 EDT No growth to date Preliminary Report [] Verified Date/Time/Personnel: 02/05/2025 19:59 EDT Specimen received in lab. Performing Locations *1: This test was performed at: [facility], [address] [place] [address], [address] , MALBR Collected: 02/05/2025 2:30 PM Status: F Source: [facility] TYPE CODE TESTS RESULT OUT OF RANGE REFERENCE UNITS LAB CRU(LOINC) U Creatinine 41.1 mg/dL LAB MRUR(LOINC) U Microalb 33.6 mg/L LAB RMAL(LOINC) U Ratio Alb/Cre 82 High 0-30 mg/G Performed By: #### YOLANDA AUGUSTIN LBR #### [address] [place], [place] [address] UDRUG Collected: 02/05/2025 2:30 PM Status: F Source: [facility] TYPE CODE TESTS RESULT OUT OF RANGE REFERENCE UNITS LAB UAMP(LOINC) Amphetamine (u) Negative Negative LAB UBAR(LOINC) Barbiturate (u) Positive Abnormal Negative LAB UBNZ(LOINC) Benzodiazepine (u) Negative Negative LAB UCAN(LOINC) Cannabinoid (u) Negative Negative LAB UCOC(LOINC) Cocaine (u) Negative Negative LAB UMETH(LOINC) Methadone (u) Negative Negative LAB UOPI(LOINC) Opiate (u) Negative Negative LAB UPCP(LOINC) PCP (u) Negative Negative LAB UDS0(LOINC) Urine Drugs screened: See Below Result Comment: This drug sc reen is a presumptive screening only. No confirmation will be performed unless requested. Drugs screened include: Threshold Amphetamines/Methamphetamines 1,000 ng/mL Barbiturates 200 ng/mL Benzodiazepine metabolites 200 ng/mL Cannabinoids (THC metabolites) 50 ng/mL Cocaine 300 ng/mL Opiates 300 ng/mL Methadone 300 ng/mL Phencyclidine (PCP) 25 ng/mL Testing has been performed FOR MEDICAL PURPOSES ONLY. Performed By: #### YOLANDA AUGUSTIN LBR #### [address] [place], [place] [address] COMPLETE BLOOD COUNT W AUTO DIFFERENTIAL PANEL Collected: 11/27/2024 6:34 PM Status: F Source: [facility] TYPE CODE TESTS RESULT OUT OF RANGE REFERENCE UNITS LAB 6690-2(LOINC) Leukocytes 6.1 4.4-11.3 x10*3/ uL LAB 43116-7(LOINC ) Erythrocytes.nuc leated/100 leukocytes 0.0 0.0-0.0 /100 WBCs LAB 789-8(LOINC) Erythrocytes 2.76 Low 4.50-5.90 x10* 6/uL LAB 718-7(LOINC) Hemoglobin 8.9 Low 13.5-17.5 g/dL LAB 4544-3(LOINC) Hematocrit 28.3 Low 41.0-52.0 % LAB 787-2(LOINC) Erythrocyte mean corpuscular volume 103 High 80-100 fL LAB 785-6(LOINC) Erythrocyte mean corpuscular hemoglobin 32.2 26.0-34.0 pg LAB 786-4(LOINC) Erythrocyte mean corpuscular hemoglobin concentration 31.4 Low 32.0-36.0 g/dL LAB 788-0(LOINC) Erythrocyte distribution width 15.7 High 11.5-14.5 % LAB 777-3(LOINC) Platelets 212 150-450 x10*3/uL LAB 770-8(LOINC) Neutrophils/100 leukocytes 59.9 40.0-80.0 % LAB 65644-0(LOINC ) Granulocytes.imm ature/100 leukocytes 0.2 0.0-0.9 % Result Comment: Immature Gra nulocyte Count (IG) includes promyelocytes, myelocytes and metamyelocytes but does not include bands. Percent differential counts (%) should be interpreted in the context of the absolute cell counts (cells/UL). LAB 736-9(LOINC) Lymphocytes/100 leukocytes 28.7 13.0-44.0 % LAB 5905-5(LOINC) Monocytes/100 leukocytes 9.0 2.0-10.0 % LAB 713-8(LOINC) Eosinophils/100 leukocytes 1.5 0.0-6.0 % LAB 706-2(LOINC) Basophils/100 leukocytes 0.7 0.0-2.0 % LAB 751-8(LOINC) Neutrophils 3.69 1.60-5.50 x10*3 /uL Result Comment: Percent diff erential counts (%) should be interpreted in the context of the absolute cell counts (cells/uL). LAB 30237-3(LOINC ) Granulocytes.imm ature 0.01 0.00-0.50 x10*3/uL LAB 731-0(LOINC) Lymphocytes 1.76 0.80-3.00 x10*3 /uL LAB 742-7(LOINC) Monocytes 0.55 0.05-0.80 x10*3/u L LAB 711-2(LOINC) Eosinophils 0.09 0.00-0.40 x10*3 /uL LAB 704-7(LOINC) Basophils 0.04 0.00-0.10 x10*3/u L Performed By: #### 36147-4 # ### DARRYL OLIVA ([id number]) [facility] ([facility]) [address] [place], [place] [id number] COAGULATION TISSUE FACTOR INDUCED Collected: 11/27/2024 6:34 PM Status: F Source: [facility] TYPE CODE TESTS RESULT OUT OF RANGE REFERENCE UNITS LAB 5902-2(LOINC) Coagulation tissue factor induced 12.1 9.8-12.8 seconds LAB 6301-6(LOINC) Coagulation tissue factor induced.INR 1.0 0.9-1.1 NA Performed By: #### 5902-2 ## ## DARRYL OLIVA ([id number]) [facility] ([facility]) [address] [place] [address] COAGULATION SURFACE INDUCED Collected: 11/27/2024 6:34 PM Status: F Source: [facility] Order Comment: The APTT is n o longer used for monitoring Unfractionated Heparin Therapy. For monitoring Heparin Therapy, use the Heparin Assay. TYPE CODE TESTS RESULT OUT OF RANGE REFERENCE UNITS LAB 44054-9(LOINC) Coagulation surface induced 30 27-38 seconds Performed By: #### 29135-2 # ### DARRYL OLIVA ([id number]) [facility] ([facility]) [address] [place], [place] [id number] LACTATE Collected: 6:34 PM Status: F Source: [facility] Order Comment: Venipuncture immediately after or during the administration of Metamizole may lead to falsely low results. Testing should be performed immediately prior to Metamizole dosing. TYPE CODE TESTS RESULT OUT OF RANGE REFERENCE UNITS LAB 2524-7(LOINC) Lactate 1.1 0.4-2.0 mmol/L Performed By: #### 2524-7 ## ## DARRYL OLIVA ([id number]) [facility] ([facility]) [address] [place] [address] COMPREHENSIVE METABOLIC 2000 PANEL Collected: 11/27/2024 6:34 PM Status: F Source: [facility] TYPE CODE TESTS RESULT OUT OF RANGE REFERENCE UNITS LAB 2345-7(LOINC) Glucose 130 High 74-99 mg/dL LAB 2951-2(LOINC) Sodium 135 Low 136-145 mmol/L LAB 2823-3(LOINC) Potassium 4.4 3.5-5.3 mmol/L LAB 2075-0(LOINC) Chloride 104 98-107 mmol/L LAB 8-9(LOINC) Carbon dioxide 27 21-32 mmo l/L LAB 14325-5(LOINC ) Anion gap 8 Low 10-20 mmol/L LAB 3094-0(LOINC) Urea nitrogen 17 6-23 mg/d L LAB 2160-0(LOINC) Creatinine 0.90 0.50-1.30 mg/dL LAB 71047-9(LOINC ) Glomerular filtration rate/1.73 sq M.predicted 85 >60 mL/min/ 1.73m*2 Result Comment: Calculations of estimated GFR are performed using the 2020 CKD- EPI Study Refit equation without the race variable for the IDMS-Traceable creatinine methods. https://jasn.asnjournals.org/content/early//ASN.2871173523 LAB 38386-3(LOINC ) Calcium 8.7 8.6-10.3 mg/dL LAB 47940-2(LOINC ) Albumin 3.7 3.4-5.0 g/dL LAB 6768-6(LOINC) Alkaline phosphatase 66 33-136 U/L LAB 2885-2(LOINC) Protein 6.6 6.4-8.2 g/dL LAB 44118-8(LOINC ) Aspartate aminotransferase 12 9-39 U/L LAB 1975-2(LOINC) Bilirubin 0.2 0.0-1.2 mg/dL LAB 1743-4(LOINC) Alanine aminotransferase 3 Low 10-52 U/L Result Comment: Patients mario ated with Sulfasalazine may generate falsely decreased results for ALT. Performed By: #### 65689-6 # ### ANDREWS HAZEL ([id number]) [facility] ([facility]) [address] [place] [address] CBC Collected: 4 3:50 PM Status: F Source: [facility] TYPE CODE TESTS RESULT OUT OF RANGE REFERENCE UNITS LAB WBC(LOINC) WBC 6.9 4.5-10.8 10 3/mcL LAB RBCCT(LOINC) RBC 3.46 Low 4.50-6.00 10 6/mcL LAB HGB(LOINC) Hgb 11.4 Low 13.0-17.5 G/dL LAB HCT(LOINC) Hct 33.2 Low 40.0-52.0 % LAB MCV(LOINC) MCV 96.1 81.0-100.0 fL LAB MCH(LOINC) MCH 32.8 27.0-33.0 pg LAB MCHC(LOINC) MCHC 34.2 32.0-36.0 G/dL LAB RDW(LOINC) RDW 15.3 11.5-15.5 % LAB PLT(LOINC) Platelet 329 150-450 10 3/mcL LAB MPV(LOINC) MPV 7.1 6.4-10.5 fL Performed By: #### LYNSEY, CB C, GFR, ANEU, CMP #### [address] [address] .AUTO DIFF Collected: 11/13/2024 3:50 PM Status: F Source: [facility] TYPE CODE TESTS RESULT OUT OF RANGE REFERENCE UNITS LAB BENNETT(LOINC) Neutrophil % 47.4 Low 50.0-75.0 % LAB LYM(LOINC) Lymphocyte % 38.1 20.0-40.0 % LAB MON(LOINC) Monocyte % 9.2 2.0-13.0 % LAB EO(LOINC) Eosinophil % 4.5 0.0-7.0 % LAB BAS(LOINC) Basophil % 0.8 0.0-2.5 % LAB ABLYM(LOINC) Lymphocyte, Absolute 2.6 0.9-4.3 10 3/mcL LAB CELE(LOINC) Monocyte, Absolute 0.6 0.1-1.4 10 3/mcL LAB AEOS(LOINC) Eosinophil, Absolute 0.3 0.0-0.7 10 3/mcL LAB ABAS(LOINC) Basophil, Absolute 0.1 0.0-0.2 10 3/mcL Performed By: #### LYNSEY, CB C, GFR, ANEU, CMP #### [address] [address] .NEUABS Collected: 3:50 PM Status: F Source: [facility] TYPE CODE TESTS RESULT OUT OF RANGE REFERENCE UNITS LAB ANEU(LOINC) Neutrophil, Absolute 3.3 2.3-8.1 10 3/mcL Performed By: #### DORIAN MENON C, GFR, ANEU, CMP #### [facility] [address] [place], [place] [address] CMP Collected: 11/13/2024 3:50 PM Status: F Source: [facility] TYPE CODE TESTS RESULT OUT OF RANGE REFERENCE UNITS LAB GLU(LOINC) Glucose Level 160 High 83-110 mg/dL LAB NA(LOINC) Sodium Level 137 136-145 mmol/L LAB K(LOINC) Potassium Level 4.8 3.5-5.1 mmol/L LAB CL(LOINC) Chloride 102 98-107 mmol/L LAB CO2(LOINC) CO2 26 23-31 mmol/L LAB EBAL(LOINC) Electrolyte Balance 9.0 4.0-15.0 mEq/L LAB BUN(LOINC) BUN 23 High 7-18 mg/dL LAB CRE(LOINC) Creatinine Lvl (s) 1.47 High 0.70-1.30 mg/dL Result Comment: Testing perf ormed on Siemens Dimension EXL analyzer using a modified kinetic Chito technique. LAB BC(LOINC) BUN/Creatinine Ratio 16 7-27 ratio LAB CA(LOINC) Calcium Lvl 8.8 8.4-10.2 mg/dL LAB PROT(LOINC) Total Protein 7.1 6.4-8.2 G/dL LAB ALB(LOINC) Albumin Level 3.2 Low 3.4-4.8 G/dL LAB GLB(LOINC) Globulin 3.9 G/dL LAB AG(LOINC) A/G Ratio 0.8 Low 1.1-2.5 ratio LAB BILT(LOINC) Bili Total 0.3 0.2-1.0 mg/dL Result Comment: Use of this assay is not recommended for patients undergoing treatment with eltrombopag due to the potential for falsely elevated results. LAB AP(LOINC) Alk Phos 78 40-135 U/L LAB AST(LOINC) AST/SGOT 15 10-40 U/L LAB ALT(LOINC) ALT/SGPT 12 Low 16-63 U/L Performed By: #### DORIAN MENON C, GFR, ANEU, CMP #### [address] [address] .GFR Collected: 3:50 PM Status: F Source: [facility] TYPE CODE TESTS RESULT OUT OF RANGE REFERENCE UNITS LAB GFRAA(LOINC) GFR 56 ml/min/1. 73sqm Result Comment: GFR Population mean for , Non- Americans Ages 20-29 = 116 mL/min/1.73 sq.m. Ages 30-39 = 107 mL/min/1.73 sq.m. Ages 40-49 = 99 mL/min/1.73 sq.m. Ages 50-59 = 93 mL/min/1.73 sq.m. Ages 60-69 = 85 mL/min/1.73 sq.m. Ages 70+ = 75 mL/min/1.73 sq.m. Chronic Kidney Disease: Less than 60 mL/min/1.73 square meters End Stage Renal Disease: Less than 15 mL/min/1.73 square meters LAB GFRNO(LOINC) GFR Non- 46 ml/min/1. 73sqm Result Comment: GFR Population mean for , Non- Americans Ages 20-29 = 116 mL/min/1.73 sq.m. Ages 30-39 = 107 mL/min/1.73 sq.m. Ages 40-49 = 99 mL/min/1.73 sq.m. Ages 50-59 = 93 mL/min/1.73 sq.m. Ages 60-69 = 85 mL/min/1.73 sq.m. Ages 70+ = 75 mL/min/1.73 sq.m. Chronic Kidney Disease: Less than 60 mL/min/1.73 square meters End Stage Renal Disease: Less than 15 mL/min/1.73 square meters Performed By: #### LYNSEY CB C, GFR, ANEU, CMP #### [address] [address] CBL Observed: 10/01/2024 2:01 PM Status: F Source: [facility] . MICRO - Microbiology PROCEDURE: Blood Culture (bacterial) [*1] SOURCE: Blood BODY SITE: COLLECTED DATE/TIME: 10/01/2024 14:01 EST RECEIVED DATE/TIME: 10/01/2024 18:49 EST START DATE/TIME: 10/01/2024 18:49 EST FREE TEXT SOURCE: FINAL REPORTS Final Report [] Verified Date/Time/Personnel: 10/03/2024 09:03 EST Staphylococcus aureus Isolated from aerobe and anaerobe bottles. Refer to previous culture for susceptibility. [id number] PRELIMINARY REPORTS Preliminary Report [] Verified Date/Time/Personnel: 10/01/2024 20:00 EST Culture has been received in lab and is no growth to date. Routine cultures are held for 5 days. STAINS GSANA [] Verified Date/Time/Personnel: 10/02/2024 11:33 EST Gram Positive Cocci in clusters GSAER [] Verified Date/Time/Personnel: 10/02/2024 10:03 EST Gram Positive Cocci in clusters Performing Locations *1: This test was performed at: [facility], [address] [place] [address], [address] [place] [address] Observed: 10/01/2024 2:01 PM Status: F Source: [facility] . MICRO - Microbiology PROCEDURE: Blood Culture (bacterial) [*1] SOURCE: Blood BODY SITE: COLLECTED DATE/TIME: 10/01/2024 14:01 EST RECEIVED DATE/TIME: 10/01/2024 18:49 EST START DATE/TIME: 10/01/2024 18:49 EST FREE TEXT SOURCE: FINAL REPORTS Final Report [] Verified Date/Time/Personnel: 10/03/2024 09:02 EST Staphylococcus aureus Isolated from aerobe and anaerobe bottles. Refer to previous culture for susceptibility. [id number] PRELIMINARY REPORTS Preliminary Report [] Verified Date/Time/Personnel: 10/01/2024 20:00 EST Culture has been received in lab and is no growth to date. Routine cultures are held for 5 days. STAINS GSANA [] Verified Date/Time/Personnel: 10/02/2024 12:45 EST Gram Positive Cocci in clusters GSAER [] Verified Date/Time/Personnel: 10/02/2024 11:24 EST Gram Positive Cocci in clusters Performing Locations *1: This test was performed at: [facility], [address] [place] [address], [address] , CBC Collected: 2:01 PM Status: F Source: [facility] TYPE CODE TESTS RESULT OUT OF RANGE REFERENCE UNITS LAB WBC(LOINC) WBC 9.4 4.5-10.8 10 3/mcL LAB RBCCT(LOINC) RBC 3.81 Low 4.50-6.00 10 6/mcL LAB HGB(LOINC) Hgb 12.7 Low 13.0-17.5 G/dL LAB HCT(LOINC) Hct 37.2 Low 40.0-52.0 % LAB MCV(LOINC) MCV 97.8 81.0-100.0 fL LAB MCH(LOINC) MCH 33.3 High 27.0-33.0 pg LAB MCHC(LOINC) MCHC 34.0 32.0-36.0 G/dL LAB RDW(LOINC) RDW 13.8 11.5-15.5 % LAB PLT(LOINC) Platelet 196 150-450 10 3/mcL LAB MPV(LOINC) MPV 8.1 6.4-10.5 fL Performed By: #### NNEKA CAMEJO ADIFF, CBC #### [facility] [address] [place] [address] .AUTO DIFF Collected: 10/01/2024 2:01 PM Status: F Source: [facility] TYPE CODE TESTS RESULT OUT OF RANGE REFERENCE UNITS LAB BENNETT(LOINC) Neutrophil % 76.2 High 50.0-75.0 % LAB LYM(LOINC) Lymphocyte % 11.7 Low 20.0-40.0 % LAB MON(LOINC) Monocyte % 11.5 2.0-13.0 % LAB EO(LOINC) Eosinophil % 0.2 0.0-7.0 % LAB BAS(LOINC) Basophil % 0.4 0.0-2.5 % LAB ABLYM(LOINC) Lymphocyte, Absolute 1.1 0.9-4.3 10 3/mcL LAB CELE(LOINC) Monocyte, Absolute 1.1 0.1-1.4 10 3/mcL LAB AEOS(LOINC) Eosinophil, Absolute 0.0 0.0-0.7 10 3/mcL LAB ABAS(LOINC) Basophil, Absolute 0.0 0.0-0.2 10 3/mcL Performed By: #### BASHIR, ANEU , ADIFF, CBC #### [address] [address] .NEUABS Collected: 2:01 PM Status: F Source: [facility] TYPE CODE TESTS RESULT OUT OF RANGE REFERENCE UNITS LAB ANEU(LOINC) Neutrophil, Absolute 7.1 2.3-8.1 10 3/mcL Performed By: #### BASHIR, ANEU , ADIFF, CBC #### [address] [address] .MDW Collected: 10/01/2024 2:01 PM Status: F Source: [facility] TYPE CODE TESTS RESULT OUT OF RANGE REFERENCE UNITS LAB MDW(LOINC) Monocyte Distribution Width 22.85 High 0.00-20.00 Result Comment: For adults i n ED, MDW>20.0 may be associated with a higher risk of sepsis during the first 12hrs of hospital admission Performed By: #### BASHIR, ANEU , ADIFF, CBC #### [address] [address] XR CHEST 2 VIEWS Observed: 10/01/2024 1:39 PM Status: F Source: [facility] ORIGINAL EXAMINATION: TWO XRAY VIEWS OF THE CHEST 10/01/2024 1:44 pm COMPARISON: Chest x-ray 11/28/2022 HISTORY: ORDERING SYSTEM PROVIDED HISTORY: Reason for Exam: SOB FINDINGS: Median sternotomy wires are noted. There is stable fracture of the most inferior sternotomy wire. A right sided chest port is noted with tip terminating within the superior vena cava. Cardiomediastinal silhouette is stable. No focal consolidation, pleural effusion or pneumothorax. The osseous structures appear intact. Moderate multilevel degenerative changes throughout the visualized spine. IMPRESSION: No acute radiographic findings. Interpreted by: Brett Whitaker Preliminary Report By: Brett Whitaker Electronically signed By Brett Whitaker Dictated Date: 10/01/2024 1:53:13 PM Prelim Date: 10/01/2024 1:56:30 PM Sign Date: 10/01/2024 1:56:30 PM Ordering Provider: DEMETRIO MARVIN CT ABD/PELVIS W/ IV CONTRAST ONLY Observ ed: 09/30/2024 2:22 PM Status: F Source: [facility] ORIGINAL EXAMINATION: CT OF THE ABDOMEN AND PELVIS WITH CONTRAST 09/30/2024 2:35 pm TECHNIQUE: CT of the abdomen and pelvis was performed with the administration of intravenous contrast. Multiplanar reformatted images are provided for review. Automated exposure control, iterative reconstruction, and/or weight based adjustment of the mA/kV was utilized to reduce the radiation dose to as low as reasonably achievable. COMPARISON: CT abdomen and pelvis 11/30/2020. HISTORY: ORDERING SYSTEM PROVIDED HISTORY: Reason for Exam: pain, diagnosed with UTI yesterday, bilateral lower back pain today. History of bladder cancer and prostate cancer. FINDINGS: There is a small right pleural effusion with mild adjacent atelectasis. Heart is normal in size without pericardial effusion. Normal liver morphology. No suspicious hepatic lesions. Cholelithiasis is noted. No secondary evidence of acute cholecystitis. Spleen, pancreas and adrenal glands are unremarkable. Kidneys enhance symmetrically. There is a stable right midpole exophytic renal cyst. Couple additional bilateral subcentimeter renal cortical hypodensities are too small to characterize but likely represent small cysts. No definite renal calculi are identified. There are bilateral renal vascular calcifications. There is mild increased bilateral perinephric fat stranding compared to prior study, greatest on the right. 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 There is moderate right and mild left hydroureteronephrosis extending to the level of the anastomosis. There appears to be possible mild soft tissue thickening at the level of the anastomosis (series 2, image 82). No significant surrounding inflammatory change. Calcific densities at the level of the anastomosis are favored to be related to anastomotic sutures. No definite evidence of obstructing calculus. No abnormal soft tissue within the cystectomy or prostatectomy surgical bed. Esophagus, stomach and duodenum are unremarkable. Normal caliber small and large bowel. Small bowel anastomosis is noted. Mild left colonic diverticulosis without evidence of diverticulitis. Appendix is unremarkable. No free pelvic fluid or evidence of pneumoperitoneum. Aorta is normal in caliber with severe aortoiliac atherosclerotic calcifications. Hepatic veins and portal venous system are patent. No pathologically enlarged abdominal or pelvic lymph nodes. There is a small peristomal hernia within the right mid abdominal wall containing mesenteric fat. Postsurgical changes noted within the abdominal wall. No aggressive osseous lesions. Moderate bilateral hip degenerative changes. Severe multilevel degenerative changes throughout the visualized spine. Post-laminectomy changes are noted within the lower lumbar spine. 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 There is moderate right and mild left hydroureteronephrosis extending to the level of the anastomosis. There is possible soft tissue thickening at the level of the anastomosis with recurrent disease not excluded. No definite evidence of obstructing calculus. Small peristomal hernia containing mesenteric fat. Cholelithiasis without evidence of acute cholecystitis. Small right pleural effusion. Interpreted by: Brett Whitaker Preliminary Report By: Brett Whitaker Electronically signed By Brett Whitaker Dictated Date: 09/30/2024 2:37:06 PM Prelim Date: 09/30/2024 2:54:09 PM Sign Date: 09/30/2024 2:54:09 PM Ordering Provider: DAWSON GOYAL Observed: 09/30/2024 12:53 PM Status: F Source: [facility] . MICRO - Microbiology PROCEDURE: Blood Culture (bacterial) [*1] SOURCE: Blood BODY SITE: COLLECTED DATE/TIME: 09/30/2024 12:53 EST RECEIVED DATE/TIME: 09/30/2024 14:31 EST START DATE/TIME: 09/30/2024 14:31 EST FREE TEXT SOURCE: FINAL REPORTS Final Report [] Verified Date/Time/Personnel: 10/03/2024 08:30 EST Staphylococcus aureus Isolated from aerobe and anaerobe bottles. This staphylococci is presumed to be resistant to clindamycin based on the detection of inducible clindamycin resistance. Clindamycin may still be effective in some patients. PRELIMINARY REPORTS Preliminary Report [] Verified Date/Time/Personnel: 10/02/2024 09:25 EST Staphylococcus aureus Isolated from aerobe and anaerobe bottles. STEPHANI to follow Preliminary Report [] Verified Date/Time/Personnel: 09/30/2024 15:59 EST Culture has been received in lab and is no growth to date. Routine cultures are held for 5 days. STAINS GSANA [] Verified Date/Time/Personnel: 10/01/2024 10:16 EST Gram Positive Cocci in clusters GSAER [] Verified Date/Time/Personnel: 10/01/2024 05:32 EST Gram Positive Cocci in clusters SUSCEPTIBILITY RESULTS Staphylococcus aureus Antibiotic STEPHANI Dilut STEPHANI Inter Ampicillin <=2 Beta Lactamase Positive Ampicillin/ <=8/4 Susceptible Sulbactam Azithromycin >4 Resistant Ceftriaxone <=4 Susceptible Ciprofloxacin <=1 Susceptible Clindamycin Resistant Erythromycin >4 Resistant Levofloxacin <=1 Susceptible Oxacillin <=0.25 Susceptible Penicillin 1 Beta Lactamase Positive Tetracycline <=4 Susceptible Trimethoprim/ <=0.5/9.5 Susceptible Sulfa Vancomycin 0.5 Susceptible Performing Locations *1: This test was performed at: [facility], [address] [place] [address], [id number] , [facility] Observed: 09/30/2024 12:53 PM Status: F Source: [facility] . MICRO - Microbiology PROCEDURE: Blood Culture (bacterial) [*1] SOURCE: Blood BODY SITE: COLLECTED DATE/TIME: 09/30/2024 12:53 EST RECEIVED DATE/TIME: 09/30/2024 14:31 EST START DATE/TIME: 09/30/2024 14:31 EST FREE TEXT SOURCE: FINAL REPORTS Final Report [] Verified Date/Time/Personnel: 10/03/2024 08:30 EST Staphylococcus aureus Isolated from aerobe and anaerobe bottles. Refer to previous culture for susceptibility. [id number] PRELIMINARY REPORTS Preliminary Report [] Verified Date/Time/Personnel: 10/02/2024 09:27 EST Staphylococcus aureus Isolated from aerobe and anaerobe bottles. Final report to follow. Preliminary Report [] Verified Date/Time/Personnel: 09/30/2024 15:59 EST Culture has been received in lab and is no growth to date. Routine cultures are held for 5 days. STAINS GSANA [] Verified Date/Time/Personnel: 10/01/2024 10:17 EST Gram Positive Cocci in clusters GSAER [] Verified Date/Time/Personnel: 10/01/2024 05:33 EST Gram Positive Cocci in clusters Performing Locations *1: This test was performed at: [facility], [address] [place] [address], [id number] , CBC Collected: 12:53 PM Status: F Source: [facility] TYPE CODE TESTS RESULT OUT OF RANGE REFERENCE UNITS LAB WBC(LOINC) WBC 9.2 4.5-10.8 10 3/mcL LAB RBCCT(LOINC) RBC 3.87 Low 4.50-6.00 10 6/mcL LAB HGB(LOINC) Hgb 12.8 Low 13.0-17.5 G/dL LAB HCT(LOINC) Hct 37.8 Low 40.0-52.0 % LAB MCV(LOINC) MCV 97.7 81.0-100.0 fL LAB MCH(LOINC) MCH 32.9 27.0-33.0 pg LAB MCHC(LOINC) MCHC 33.7 32.0-36.0 G/dL LAB RDW(LOINC) RDW 14.1 11.5-15.5 % LAB PLT(LOINC) Platelet 193 150-450 10 3/mcL LAB MPV(LOINC) MPV 7.5 6.4-10.5 fL Performed By: #### CBC, MDW, ADIFF, GFR, ANEU, LAC, BMP #### [address] [address] .AUTO DIFF Collected: 09/30/2024 12:53 PM Status: F Source: [facility] TYPE CODE TESTS RESULT OUT OF RANGE REFERENCE UNITS LAB BENNETT(LOINC) Neutrophil % 76.6 High 50.0-75.0 % LAB LYM(LOINC) Lymphocyte % 12.9 Low 20.0-40.0 % LAB MON(LOINC) Monocyte % 9.9 2.0-13.0 % LAB EO(LOINC) Eosinophil % 0.1 0.0-7.0 % LAB BAS(LOINC) Basophil % 0.5 0.0-2.5 % LAB ABLYM(LOINC) Lymphocyte, Absolute 1.2 0.9-4.3 10 3/mcL LAB CELE(LOINC) Monocyte, Absolute 0.9 0.1-1.4 10 3/mcL LAB AEOS(LOINC) Eosinophil, Absolute 0.0 0.0-0.7 10 3/mcL LAB ABAS(LOINC) Basophil, Absolute 0.0 0.0-0.2 10 3/mcL Performed By: #### CBC, MDW, ADIFF, GFR, ANEU, LAC, BMP #### [address] [place], [place] [address] .NEUABS Collected: 12:53 PM Status: F Source: [facility] TYPE CODE TESTS RESULT OUT OF RANGE REFERENCE UNITS LAB ANEU(LOINC) Neutrophil, Absolute 7.1 2.3-8.1 10 3/mcL Performed By: #### CBC, MDW, ADIFF, GFR, ANEU, LAC, BMP #### [address] [address] .MDW Collected: 09/30/2024 12:53 PM Status: F Source: [facility] TYPE CODE TESTS RESULT OUT OF RANGE REFERENCE UNITS LAB MDW(INC) Monocyte Distribution Width 23.80 High 0.00-20.00 Result Comment: For adults i n ED, MDW>20.0 may be associated with a higher risk of sepsis during the first 12hrs of hospital admission Performed By: #### CBC, MDW, ADIFF, GFR, ANEU, LAC, BMP #### [address] [address] BMP Collected: 09/30/2024 12:53 PM Status: F Source: [facility] TYPE CODE TESTS RESULT OUT OF RANGE REFERENCE UNITS LAB GLU(LOINC) Glucose Level 197 High 83-110 mg/dL LAB NA(LOINC) Sodium Level 134 Low 136-145 mmol/L LAB K(LOINC) Potassium Level 4.3 3.5-5.1 mmol/L LAB CL(LOINC) Chloride 96 Low 98-107 mmol/L LAB CO2(LOINC) CO2 29 23-31 mmol/L LAB EBAL(LOINC) Electrolyte Balance 9.0 4.0-15.0 mEq/L LAB BUN(LOINC) BUN 18 7-18 mg/dL LAB CRE(LOINC) Creatinine Lvl (s) 1.26 0.70-1.30 mg/dL Result Comment: Testing perf ormed on Siemens Dimension EXL analyzer using a modified kinetic Chito technique. [facility] BUN/Creatinine Ratio 14 7-27 ratio LAB CA[facility] Calcium Lvl 8.4 8.4-10.2 mg/dL Performed By: #### BASHIR YOUNGBLOOD, LYNSEY, GFR, ANEU, LAC, BMP #### [address] [address] .GFR Collected: 12:53 PM Status: F Source: [facility] TYPE CODE TESTS RESULT OUT OF RANGE REFERENCE UNITS LAB GFRAA([facility]) GFR 66 ml/min/1. 73sqm Result Comment: GFR Population mean for , Non- Americans Ages 20-29 = 116 mL/min/1.73 sq.m. Ages 30-39 = 107 mL/min/1.73 sq.m. Ages 40-49 = 99 mL/min/1.73 sq.m. Ages 50-59 = 93 mL/min/1.73 sq.m. Ages 60-69 = 85 mL/min/1.73 sq.m. Ages 70+ = 75 mL/min/1.73 sq.m. Chronic Kidney Disease: Less than 60 mL/min/1.73 square meters End Stage Renal Disease: Less than 15 mL/min/1.73 square meters LAB GFRNO([facility]) GFR Non- 55 ml/min/1. 73sqm Result Comment: GFR Population mean for , Non- Americans Ages 20-29 = 116 mL/min/1.73 sq.m. Ages 30-39 = 107 mL/min/1.73 sq.m. Ages 40-49 = 99 mL/min/1.73 sq.m. Ages 50-59 = 93 mL/min/1.73 sq.m. Ages 60-69 = 85 mL/min/1.73 sq.m. Ages 70+ = 75 mL/min/1.73 sq.m. Chronic Kidney Disease: Less than 60 mL/min/1.73 square meters End Stage Renal Disease: Less than 15 mL/min/1.73 square meters Performed By: #### BASHIR YOUNGBLOOD, LYNSEY, GFR, ANEU, LAC, BMP #### [address] [address] LAC Collected: 12:53 PM Status: F Source: [facility] TYPE CODE TESTS RESULT OUT OF RANGE REFERENCE UNITS LAB LAC(LOINC) Lactic Acid Lvl 1.2 0.4-2.0 mmol/L Performed By: #### CBC, MDW, ADIFF, GFR, ANEU, LAC, BMP #### [address] [address] BCID Collected: 09/30/2024 12:53 PM Status: F Source: [facility] Order Comment: [id number] aer TYPE CODE TESTS RESULT OUT OF RANGE REFERENCE UNITS LAB BCIDCOM(LOINC) BCID Comment See Comment Result Comment: Antimicrobia l resistance can occur via multiple mechanisms. A Not Detected" result for antimicrobial resistance gene(s) does not indicate antimicrobial susceptibility. Culture identification and susceptibility results to follow. If BCID panel was negative ("Not Detected") for all targets, this does not exclude a blood stream infection. Our blood culture system detected growth. Culture identification and susceptibility testing (if appropriate) to follow. LAB [id number](LOINC ) CTX-M (ESBL) Not Applicable Not Detected LAB [id number](LOINC ) IMP (Carbapenemase) Not Applicable Not Detected LAB [id number](LOINC ) KPC (Carbapenemase) Not Applicable Not Detected LAB [id number](LOINC ) MCR-1 (Colistin Resistance) Not Applicable Not Detected LAB [id number](LOINC ) Mec A/C Not Applicable Not Detected LAB [id number](LOINC ) Mec A/C-MREJ (MRSA) Not Detected Not Detected LAB [id number](LOINC ) NDM (Carbapenemase) Not Applicable Not Detected LAB [id number](LOINC ) OXA-48 like (Carbapenemase) Not Applicable Not Detected LAB VANAB(LOINC) Van A/B Not Applicable Not Detected LAB [id number](LOINC ) VIM (Carbapenemase) Not Applicable Not Detected LAB [id number](LOINC ) Enterococcus faecalis Not Detected Not Detected LAB [id number](LOINC ) Enterococcus faecium Not Detected Not Detected LAB LISMOC(LOINC) Listeria monocytogenes Not Detected Not Detected LAB STAPHYL(LOINC) Staphylococcus Detected Abnormal Not Detected LAB STAAUR(LOINC) Staphylococcus aureus Detected Abnormal Not Detected Result Comment: If Staphyloc occus aureus is "Detected", an Infectious Disease physician consult is required on identification. LAB [id number](LOINC ) Staphylococcus epidermidis Not Detected Not Detected LAB [id number](LOINC ) Staphylococcus lugdunensis Not Detected Not Detected LAB STREPTOC(LOINC) Streptococcus Not Detected Not Detected LAB STRAGA(LOINC) Streptococcus agalactiae Not Detected Not Detected LAB [id number](LOINC ) Acinetobacter miguelangel-baumanii complex Not Detected Not Detected LAB STRPNE(LOINC) Streptococcus pneumoniae Not Detected Not Detected LAB ENTCLO(LOINC) Enterobacter cloacae Complex Not Detected Not Detected LAB Streptococcus pyogenes(LOINC) Streptococcus pyogenes Not Detected Not Detected LAB [id number](LOINC ) Bacteroides fragilis Not Detected Not Detected LAB ENTBAC(LOINC) Enterobacterales Not Detected Not Detected LAB ESCCOL(LOINC) E. Coli Not Detected Not Detected LAB [id number](LOINC ) Klebsiella aerogenes Not Detected Not Detected LAB KLEOXY(LOINC) Klebsiella oxytoca Not Detected Not Detected LAB [id number](LOINC ) Klebsiella pneumoniae group Not Detected Not Detected LAB PROTEUS(LOINC) Proteus Not Detected Not Detected LAB [id number](LOINC ) Salmonella species Not Detected Not Detected LAB SERMAR(LOINC) Serratia marcescens Not Detected Not Detected LAB HAEINF(LOINC) Haemophilus influenzae Not Detected Not Detected LAB NEIMEN(LOINC) Neisseria meningitidis (Encapsalated) Not Detected Not Detected LAB PSEAER(LOINC) Pseudomonas aeruginosa Not Detected Not Detected LAB [id number](LOINC ) Stenotrophomonas maltophilia Not Detected Not Detected LAB CANALB(LOINC) Lilliam albicans Not Detected Not Detected LAB [id number](LOINC ) Lilliam auris Not Detected Not Detected LAB CANGLA(LOINC) Lilliam glabrata Not Detected Not Detected LAB CANKRU(LOINC) Lilliam krusei Not Detected Not Detected LAB CANPAR(LOINC) Lilliam parapsilosis Not Detected Not Detected LAB CANTRO(LOINC) Lilliam tropicalis Not Detected Not Detected LAB [id number](LOINC ) Cryptococcus neoformans-gattii Not Detected Not Detected Performed By: #### BCID #### [facility] [address] [place] [address] PROGRESS NOTE Observed: 09/02/2024 10:20 AM Status: COMPLETED Source: [facility] [address] [facility] [address] Dept: [phone] Dept Loc: [phone] Visit type: Established Patient Reason for Visit: Follow-up and Tremors Assessment and Plan 1. Parkinson's disease without dyskinesia or fluctuating manifestations (HCC) 2. Essential tremor Subjective HPI: He has had falls he reports. . He feels his tremors are the same, but his thinks they are worse. He has a lot of tremor when carrying things. His feels that he is unsteady on turns. He denies dysphagia. He denies constipation. REVIEW OF SYSTEMS: Review of Systems Constitutional: [...] 160-9-4.8 MCG/ACT aerosol, , Disp: , Rfl: carbidopa-levodopa (Sinemet) 25-100 MG tablet, Take 1 tablet by mouth 3 times daily., Disp: 270 tablet, Rfl: 3 DULoxetine (Cymbalta) [address] capsule, Take 60 mg by mouth in the morning and 60 mg in the evening., Disp: , Rfl: ferrous sulfate 325 (65 Fe) MG tablet, Take 1 tablet by mouth daily., Disp: , Rfl: gabapentin (Neurontin) 800 MG tablet, Take 1 tablet (800 mg) by mouth 3 times daily., Disp: 270 tablet, Rfl: 3 glimepiride (Amaryl) [...] mg) by mouth 3 times daily., Disp: 270 tablet, Rfl: 3 simvastatin (Zocor) 40 MG tablet, Take 40 mg by mouth Nightly., Disp: , Rfl: Past Medical History: Diagnosis Date Bladder cancer (HCC) CAD (coronary artery disease) Cancer (CMS/HCC) (HCC) Parkinson disease (HCC) Prostate cancer (HCC) Tremor Social History Tobacco Use Smoking status: Every Day Current packs/day: 0.00 Average packs/day: 0.3 packs/day for 70.4 years (17.6 ttl pk-yrs) Types: Cigarettes Start date: 03/26/1952 Last attempt to quit: 08/26/2024 Years since quittin.0 Smokeless tobacco: Never Tobacco comments: Still smoking Substance Use Topics Alcohol use: Not Currently Comment: I might have 3-4 beers a year Past Surgical History: Procedure Laterality Date CORONARY ARTERY BYPASS GRAFT Family History Problem Relation Name Age of Onset Stomach cancer Mother Heart attack Father Objective Vitals: BP 137/71 (BP Location: Left arm, Patient Position: Sitting, BP Cuff Size: Adult) Pulse 54 Ht 5' 9" (1.753 m) Wt 245 lb (111 kg) BMI 36.18 kg/m? General Appearance: Patient is in no apparent [...] 5/5 throughout Alternating Movements: Normal Cogwheel Rigidity: Mild on the right Tone: Tone is normal Tremor / Involuntary Movements: Most of today's tremor is torsional and positional, some intention tremor. Deep Tendon Reflexes: 1 out of 4 symmetrical in all four limbs. Coordination: Normal coordination upper and lower extremities Gait and Station: Station is mildly abnormal. Gait is stooped, small steps, and he is a bit unsteady on turning. Data Reviewed and Summarized DIAGNOSTIC TESTING NERVE CONDUCTION TEST/EMG FACILITY: [facility] REFERRING PHYSICIAN: Nina Tineo JR, MD TEST [...] this study. CBC: No results found for: "WBC", "RBC", "HGB", "HCT", "MCV", "MCH", "MCHC", "RDW", "PLT", "MPV" CMP: No results found for: "NA", "K", "CL", "CO2", "BUN", "CREATININE", "AGRATIO", "LABGLOM", "GLUCOSE", "GLU", "PROT", "CALCIUM", "BILITOT", "ALKPHOS", "AST", "ALT" BMP: No results found for: "NA", "K", "CL", "CO2", "BUN", "CREATININE", "CALCIUM", "LABGLOM", "GLUCOSE", "GLU" PT/INR: No results found for: "PROTIME", "INR" PTT: No results found for: "APTT", "PTT"[APTT} FLP: No results found for: "CHLPL", "TRIG", "HDL", "LDLCALC", "LDLDIRECT" TSH: No results found for: "TSH" VITAMIN B12: No results found for: "EXWLRQAD95" No results found for: "PHENYTOIN", "PHENOBARB", "VALPROATE", "CBMZ" No components found for: "TOPIRA" @RESULTINGLABINFO@ No results found for: "LEVETIRACETA", "FERRITIN", "CRP", "SWATI", "ANCA" No results found for: "ODETTE", "IMMUNOGLOBUL", "OLIGOBANDS" No results found for: "FHS73UY", "HEPCAB" No results found for: "CRP", "ANATITER", "ANCA" FERRITIN: No results found for: "FERRITIN" ---- OUTSIDE IMAGING SCAN Ordered by an unspecified provider. IMPRESSION and PLAN: Diagnosis Plan 1. Parkinson's disease without dyskinesia or fluctuating manifestations (HCC) 2. Essential tremor The primary tremor is Parkinsonian today. He is to increase slightly the Parkinson's by takine 25/100 in AM and 25/100 in midday and 50/200 CR at night. Continue the primidone. The gabapentin will be lowered to 600 TID to reduce gait instability. Nina Tineo MD I spent 30 minutes caring for this patient today, reviewing labs, records, seeing the patient, documenting in the record and arranging for studies. OFFICE VISIT Observed: 09/02/2024 10:20 AM Status: COMPLETED Source: [facility] [id number] Akash Cramer 1940 M Date Provider Department Center 09/02/2024 [id number] TINEO [facility] None Family History Problem Relation Age of Onset Stomach cancer Mother Heart attack Father Family Status - Relation Status Age at Mother Father Level of Service:02065 MA OFFICE/OUTPATIENT ESTABLISHED MOD MDM 30 MIN Reason for Visit and Comments: Follow-up [151842] Tremors [[id number]] PATINS Observed: 09/02/2024 10:20 AM Status: COMPLETED Source: [facility] Please change you carbidopa- levodopa as follows: Take 25/100 in the morning Take 25/100 in the middle of the day Take 50/200 extended release at night. ALLERGIES DATE TYPE / CODE NAME / CODE REACTION SEVERITY SOURCE 11/27/2024 DRUG INGREDI/[id number](S NOMED CT) CEFEPIME [facility] 11/27/2024 DRUG INGREDI/[id number](S NOMED CT) CEFAZOLIN Rash [facility] ENCOUNTERS ADMIT/DISCHARGE ACCOUNT NUMBER ADMITTING ENCOUNTER CLASS LOCATION SOURCE 08/17/2025/ 5 [id number] Ambulatory Buildin [id number] [facility] 07/28/2025/ 5 [id number] [place] [facility] [facility] 06/29/2025/ 5 [id number] Ambulatory Buildin [id number] [facility] 06/09/2025/ 5 [id number] Ambulatory Buildin [id number] [facility] 05/07/2025/ 5 [id number] [place] [facility] 04/27/2025/ 5 [id number] Ambulatory Buildin [id number] [facility] 03/12/2025/ 5 [id number] Ambulatory Build[place] [id number] [facility] 02/19/2025/ 5 [id number] [place] [facility] 02/05/2025/ 5 [id number] [place] [facility] 11/27/2024/ 5 [id number] Emergency Building:[facility] EDRoom: [id number] : [address] 11/13/2024/ 4 [id number] [place] [facility] 10/01/2024/ 4 [id number] [place] [facility] 09/30/2024/ 4 [id number] [place] [facility] 09/02/2024/ 4 [id number] Ambulatory Build[place] [id number] [facility] PAYERS ENCOUNTER GUARANTOR PAYER SUBSCRIBER SOURCE 08/17/2025 Primary Insurance:[employer] MEDICAREPolicy Number: [id number] Date:8302-09-53Btsv Name:Medicare O AKASH LIMA: [id number] [place] [address] [facility] 07/28/2025 AKASH LIMA: [id number] [address] [place] [address]Rju: () Primary Insurance:[facility] INSCOPnyu [facility] health systemy Number: [id number] Date:8342-14-53Zygy Name:[facility] [address] [place] [address]IR: AKASH SCHAFFERB: [id number] [address] [place] [address]Rux: (HP) (WP) [facility] 06/29/2025 Primary Insurance:[employer] MEDICAREPolicy Number: [id number] Date:6834-10-04Buiv Name:Medicare HMO AKASH SCHAFFERB: [id number] [address] [place] [address] [facility] 06/09/2025 Primary Insurance:[employer] MEDICAREPolicy Number: [id number] Date:8473-84-18Rswa Name:Medicare HMO AKASH SCHAFFERB: [id number] [address] [place] [address] [facility] 05/07/2025 AKASH Marti COLTJelly: [id number] [address] [place] [address]Yap: (HP) [facility]: [id number] Date:0412-54-36Otpn Name:[facility] [address] [place] [address]HA: AKASH LIMA: [id number] [address] [place] [address]Eii: (HP) (WP) [facility] 04/27/2025 Primary Insurance:[employer] MEDICAREPolicy Number: [id number] Date:2503-62-69Dpgg Name:Medicare HMO AKASH SCHAFFERB: [id number] [address] [place] [address] [facility] 03/12/2025 Primary Insurance:[employer] MEDICAREPolicy Number: [id number] Date:7280-48-71Drly Name:Medicare HMO AKASH Marti KARIMEB: [id number] [address] [place] [address] [facility] 02/19/2025 AKASH LIMA: [id number] [address] [place] [address]Jzg: (HP) Primary Insurance:[facility] INSVermont State Hospitaly Number: [id number] Date:4416-79-92Hgbr Name:[facility] [place], [place] [address]RM: AKASH LIMA: [id number] [address] [place] [address]Ofz: (HP) (WP) [facility] 02/05/2025 AKASH LIMA: [id number] [address] [place] [address]Scq: (HP) Primary Insurance:[facility] INSVermont State Hospitaly Number: [id number] Date:3771-44-76Iiht Name:[facility] [address] [place] [address]HS: AKASH LIMA: [id number] [address] [place] [address]Vtq: (HP) (WP) [facility] 11/27/2024 AKASH LIMA: [id number] [address] [place], [place] [address]Ubu: (HP) Primary Insurance:[facility] MEDICAREPhoenixville Hospitaly Number: [id number] Date:2024-11-26 AKASH LIMA: [id number] [address] [place], [place] [address]Dxz: (HP) [facility] 11/13/2024 AKASH LIMA: [address] [place] [address]Cep: (HP) Primary Insurance:[facility] INSVermont State Hospitaly Number: [id number] Date:4666-01-94Ekpv Name:[place]ITALI [place] [address]JE: AKASH LIMA: [id number] [address] [place] [address]Dfi: (HP) (WP) [facility] 10/01/2024 AKASH LIMA: [address] [place] [address]Oiz: (HP) Primary Insurance:[facility] Number: [id number] Date:0556-02-36Ylmq Name:MITALI [place] [address]XG: AKASH LIMA: [id number] [address] [place] [address]Trt: (HP) (WP) [facility] 09/30/2024 AKASH LIMA: [address] [place] [address]Bbu: (HP) Primary Insurance:[facility] Number: [id number] Date:9386-27-18Obhd Name:Candy [place] [address]XZ: AKASH LIMA: [id number] [address] [place] [address]Sen: (HP) (WP) [facility] 09/02/2024 Primary Insurance:[employer] MEDICAREPolicy Number: [id number] Date:5680-65-51Aknl Name:Medicare HMO AKASH SCHAFFERB: [id number] [place] [address] [facility]
[2025-08-24 20:11] VITALS: BP 118/50; PULSE 79; RESP 16; TEMP 36.6; O2SAT 95; BMI 37.8
--- NOTE | 2025-08-24 20:17 | RAD_ITS ---
PROCEDURE: LEFT HAND MIN 3 VIEWS 08/24/2025 REASON FOR EXAM: INJURY TECHNIQUE: Procedure Code: DAMION Modality: DX Procedure: HAND MIN 3 VIEWS Laterality: Left COMPARISON: None. FINDINGS: Acute transversely oriented fracture of the 3rd proximal phalanx shaft, with mild displacement to the dorsal ulnar aspect. No additional acute fracture or dislocation identified. Preserved joint spaces. Mild soft tissue swelling about the 3rd digit. No radiopaque foreign body RAD/Hand Min 3 Views IMPRESSION: Acute mildly displaced fracture of the 3rd proximal phalanx shaft. Reading Location: [id number]
[2025-08-24] MEDS: Lidocaine 1% (20 ml mdv) 20 ML Vial 5 ML INFILT (21:24)
--- NOTE | 2025-08-24 22:12 | EX.ED.UPPERE ---
HPI History of Present Illness Chief Complaint: Upper Extremity Injury Detail of Chief Complaint: Blunt trauma left hand Informant: patient Occured/Mechanism Mechanism/Context: Yes injury and Yes blunt trauma Comment: Was using a auger. Let go with the button and it spun causing injury to his left hand Onset/Context/Timing Onset: Today and Hours Context: Sudden Onset Timing: Continuous and Waxes and wanes Quality of Pain: Dull, Aching and Throbbing Location: Index, long finger and associated metacarpal bones. Current Severity: Mild Maximum Severity: Moderate Worsened by: Use Relieved by: Not using it Associated Symptoms Associated Symptoms: Negative for Parasthesia, Weakness or Loss of Funtion Narrative Narrative: Patient 85-year-old [id number] male presents with blunt injury to his left hand. Complained of pain over the 2nd and 3rd metacarpal and the proximal phalanx of his index, long and ring finger. Prior similar symptoms: No Recent Illness/Hospitalization: No PFSH PFSH Medical History Right foot sprain Right ankle sprain Fracture of fibula, right, closed Obesity (BMI 30-39.9) Chronic back pain Osteoarthritis DDD (degenerative disc disease) Lumbar spondylosis MSSA bacteremia Acute hyperglycemia COPD (chronic obstructive pulmonary disease) Blood bacterial culture positive Arthritis of sacroiliac joint Candidal dermatitis Candidiasis Sleep apnea Kidney disease Smoker H/O cardiovascular stress test History of left heart catheterization (~02/24/10) Cardiology follow-up encounter Port-A-Cath in place (~01/24/21) History of blood transfusion bladder instill antica agent Low back pain Primary hypertension Emphysema, unspecified Congenital stenosis and stricture of esophagus Cardiac murmur, unspecified Atherosclerotic heart disease Anemia Acute kidney failure, unspecified Gross hematuria BPH with obstruction/lower urinary tract symptoms Bladder cancer Nicotine dependence, cigarettes, uncomplicated JOHN (obstructive sleep apnea) COPD (chronic obstructive pulmonary disease) Acute [place], inferior wall CKD stage 3 Diabetes mellitus Hyperlipidemia Pulmonary HTN CAD (coronary artery disease) Diabetic neuropathy Mitral valve regurgitation Tricuspid valve regurgitation B12 deficiency Parkinson disease Pneumonia Tobacco use disorder, continuous Obesity Home Medications Medication Instructions Recorded Last Taken Type duloxetine 60 mg capsule,delayed 60 mg PO BID DEPRESSION 03/12/18 11/28/24 History release omega-3 fatty acids 1,000 mg 1,000 mg PO BID SUPPLEMENT 03/12/18 Unknown History capsule fenofibrate 160 mg tablet 160 mg PO DAILY CHOLESTEROL 01/14/21 11/27/24 History pioglitazone 45 mg tablet (Actos) 45 mg PO DAILY DIABETES 01/14/21 Unknown History primidone 250 mg tablet 250 mg PO TID PARKINSONS 01/14/21 11/28/24 History simvastatin 40 mg tablet 40 mg PO QHS CHOLESTEROL 01/14/21 11/27/24 History hydrocodone-acetaminophen 5-325mg 1 tab PO Q12H PRN Pain 03/23/21 Unknown History 5mg-325mg ipratropium 0.5 mg-albuterol 3 mg 3 ml inhalation Q6H COPD J44.9 07/03/22 Unknown Rx (2.5 mg base)/3 mL nebulization #180 mL soln carbidopa 25 mg-levodopa 100 mg 1 tab PO BID PARKINSON'S 10/31/23 11/28/24 History tablet losartan 25 mg tablet 25 mg PO QDAY HTN 04/01/24 11/28/24 History insulin glargine 100 unit/mL (3 20 unit subcut DAILY Diabetes 10/05/24 Unknown History mL) subcutaneous pen (Lantus Solostar U-100 Insulin) [facility] 11/[facility]/24 Unknown History Verio test strips) blood-glucose meter (OneTouch 11/21/24 Unknown History Verio Flex Meter) gabapentin 600 mg tablet 600 mg PO TID NEUROPATHY 11/21/24 11/28/24 History lancets 33 gauge (OneTouch Delica 11/21/24 Unknown History Plus Lancet) polyethylene glycol 3350 17 17 g PO QHS 01/19/25 Unknown History gram/dose oral powder (Miralax) cholecalciferol (vitamin D3) 1,250 1,250 mcg PO QMONTH 01/24/25 Unknown History mcg (50,000 unit) capsule duloxetine 60 mg capsule,delayed 60 mg PO BID 01/24/25 Unknown History release (Cymbalta) budesonide 160 mcg-glycopyr 9 2 inh inhalation BID WHEEZING 04/23/25 Unknown Rx mcg-formot 4.8 mcg/actuation HFA #10.7 grams inhaler (Breztri Aerosphere) calcium 600 mg (as 1 tab PO BID 05/11/25 Unknown History carbonate)-vitamin D3 5 mcg (200 unit) tablet (Calcium 600 + D(3)) omega 3-xvy-dnq-fish oil 1,200 mg 1 cap PO BID 05/11/25 Unknown History (144 mg-216 mg) capsule (Fish Oil) pramipexole 0.5 mg tablet 0.5 mg PO 05/11/25 Unknown History guaifenesin 1,200 mg tablet, 1,200 mg PO Q12H #60 tabs 05/15/25 Unknown Rx extended release 12 hr ciprofloxacin HCl 500 mg tablet 500 mg PO BID PRN 06/08/25 Unknown History Allergy/AdvReac Type Severity Reaction Status Date / Time cefepime Allergy Severe Anaphylaxis Verified 08/24/25 20:12 cefazolin Allergy Intermediate Hives Verified 08/24/25 20:12 Family History Mother Ovarian cancer Father Heart disease Brother Leukemia Surgical History Status post radical cystoprostatectomy Hx of transurethral resection of prostate (~01/05/21) History of quadruple bypass History of hand surgery History of ankle surgery Hx of cystoscopy S/P TURP Previous back surgery S/P CABG x 4 Social History current occupational status: retired Smoking Status: Current every day smoker tobacco type: cigars and smokeless tobacco alcohol intake: never substance use type: does not use caffeine: Yes Type: coffee Number of servings: 1 eating out: rarely or never ROS ROS ED Musculoskeletal Musculoskeletal: Reports other Details: Per HPI narrative ; Denies myalgias Integumentary Reports Abrasions Neurologic Neurologic: Denies headache(s), paresthesias or weakness Hematologic/Lymphatic Hematologic/Lymphatic: Denies easy bleeding or easy bruising EXAM Physical Exam Const Vital Signs: 08/24/25 20:11 Temperature 97.8 F Temperature Source Oral Pulse Rate 79 Respiratory Rate 16 Blood Pressure 118/50 L Blood Pressure Mean 72 Pulse Ox 95 Positive well nourished and well developed General Appearance ED: well developed and NAD HEENT normocephalic and atraumatic Eyes PERRL and EOMs intact bilaterally Resp normal respiratory effort Cardio regular rate and regular rhythm Extremity Negative for normal to inspection or full ROM Extremity Narrative: There is swelling of the left hand. There is pain ovation over the 2nd and 3rd metacarpal and the proximal phalanx of the index, long and ring finger. There is no rotational malalignment. Sensation is intact. The extensor mechanism is intact. The flexor digitorum superficialis and flexor digitorum profundus are intact for the index, long and ring finger. There is an abrasion noted over the fourth metacarpal joint. Neuro oriented x3 and CN's II-XII intact bilaterally Psych mental status grossly normal Skin Skin Narrative: Abrasion Lesions: no lesions Rashes: no rashes MDM MDM MDM Narrative Medical decision making narrative: X-ray of the hand was obtained per nurse protocol after discussion with me. X-ray reveals a displaced fracture shaft proximal phalanx left long finger. Radiography Diagnostic Testing: Clinical Impression(s) from Imaging Studies Hand X-Ray 08/24/25 20:17 IMPRESSION: Acute mildly displaced fracture of the 3rd proximal phalanx shaft. Reading Location: [id number] Treatment and Re-Evaluation Narrative: Postreduction film was obtained. 3 views. The lateral and a Bleich reveal improvement. The AP reveals slight improvement. There is still some displacement. In light of this we will have him follow-up with Dr. Villafuerte the hand surgeon. Procedures Other Procedures Procedure(s): Digital block left long finger. 5 cc of 1% lidocaine without epinephrine was used. The finger is much straighter at this point. Will obtain postreduction x-ray. He is placed in aluminum splint. Discharge Plan Triage Chief Complaint: Upper Extremity Injury ED Provider: Galo [place] Dx/Rx/DC Orders Clinical Impression: Displaced fracture of proximal phalanx of finger of left hand, Diabetes mellitus, CAD (coronary artery disease), Pulmonary HTN, JOHN (obstructive sleep apnea) Instructions: ED Fracture, Finger, Closed Prescriptions: No Action omega-3 fatty acids 1,000 mg capsule 1,000 mg PO BID duloxetine 60 mg capsule,delayed release(DR/EC) 60 mg PO BID Patient Comments: Duplicate hydrocodone-acetaminophen 5-325 mg tablet 1 tab PO Q12H PRN (Reason: Pain) carbidopa-levodopa 25-100 mg tablet 1 tab PO BID losartan 25 mg tablet 25 mg PO QDAY Anh Aerosphere 160-9-4.8 mcg/actuation HFA aerosol inhaler 2 inh inhalation BID Qty: 10.7 6RF polyethylene glycol 3350 [Miralax] 17 gram/dose powder 17 g PO QHS guaifenesin 1,200 mg tablet extended release 12hr 1,200 mg PO Q12H Qty: 60 6RF ciprofloxacin HCl 500 mg tablet 500 mg PO BID PRN pioglitazone [Actos] 45 MG tablet 45 mg PO DAILY simvastatin 40 MG tablet 40 mg PO QHS primidone 250 MG tablet 250 mg PO TID fenofibrate 160 MG tablet 160 mg PO DAILY insulin glargine [Lantus Solostar U-100 Insulin] 100 unit/mL (3 mL) insulin pen 20 unit subcut DAILY Patient Comments: 15 units daily gabapentin 600 mg tablet 600 mg PO TID (DME) blood-glucose meter [Bracketr Verio Flex meter] [facility] [place] MISCELLANEOUS UD (DME) OneTouch Verio test strips Strip MISCELLANEOUS TID (DME) lancets [Axiomaticsuch Delica Plus Lancet] [facility] MIS[facility]OUS TID cholecalciferol (vitamin D3) 1,250 mcg (50,000 unit) capsule 1,250 mcg PO QMONTH duloxetine [Cymbalta] 60 mg capsule,delayed release(DR/EC) 60 mg PO BID pramipexole 0.5 mg tablet 0.5 mg PO calcium carbonate-vitamin D3 [Calcium 600 + D(3)] 600 mg-5 mcg (200 unit) tablet 1 tab PO BID omega 9-vyc-rik-fish oil [Fish Oil] 1,200 (144-216) mg capsule 1 cap PO BID ipratropium-albuterol 0.5 mg-3 mg(2.5 mg base)/3 mL solution for nebulization 3 ml INHALATION Q6H Qty: 180 11RF Primary Care Provider: Ruben Angela NP Referrals: Michael Villafuerte MD [Med Staff - Active Staff, Plastic Surgery] - As soon as possible Ruben Angela NP, [employer] [Primary Care Provider, Family Practice] Activity Restrictions/Additional Instructions: When you call Dr. Villafuerte's office in the morning let them know you were in the emergency room. Let them know that you have a displaced proximal phalanx fracture that will require repair Print Language: Bhutanese Disposition Disposition: Home, Self Care
--- NOTE | 2025-08-24 22:26 | RAD_ITS ---
PROCEDURE: FINGER(S) MIN 2 VIEWS 08/24/2025 REASON FOR EXAM: POSTREDUCTION, LONG FINGER TECHNIQUE: Procedure Code: RADFIN Modality: DX Procedure: FINGER(S) MIN 2 VIEWS Laterality: COMPARISON: Same day hand radiograph. FINDINGS: Acute, oblique fracture of the 3rd proximal phalanx diaphysis with mild displacement. Slightly improved alignment from the prior radiograph. Osseous lesion with continuity of the cortex arising from the 2nd metacarpal growing toward the joint space with the osseous component extending 6 mm from the distal metaphysis. RAD/Finger(s) Min 2 Views IMPRESSION: Acute oblique fracture of the third proximal phalanx diaphysis with mild displa cement and slightly improved alignment compared to the prior radiograph. Cortically based osseous lesion arising from the second metacarpal with continu ity of the cortex and medullary bone, projecting toward the joint space, measuring up to 6 mm, most compatible with an osteochon droma. Reading Location: [id number]
[2025-08-24 23:19] VITALS: BP 118/50; PULSE 79; RESP 16; TEMP 36.6; O2SAT 95
== END 2025-08-24 23:22 | disposition home or self-care (01) ==
PROVIDERS: Emergency Provider Emergency Medicine; PCP Nurse Practitioner Family; Visit Provider Emergency Medicine
DX: S62.613A Displaced fracture of proximal phalanx of left middle finger, initial encounter for closed fracture (principal); G20.A1 Parkinson's disease without dyskinesia, without mention of fluctuations; I27.20 Pulmonary hypertension, unspecified; J44.9 Chronic obstructive pulmonary disease, unspecified; E11.40 Type 2 diabetes mellitus with diabetic neuropathy, unspecified; Z79.4 Long term (current) use of insulin; E11.22 Type 2 diabetes mellitus with diabetic chronic kidney disease; N18.30 Chronic kidney disease, stage 3 unspecified; W22.8XXA Striking against or struck by other objects, initial encounter; I25.10 Atherosclerotic heart disease of native coronary artery without angina pectoris; I12.9 Hypertensive chronic kidney disease with stage 1 through stage 4 chronic kidney disease, or unspecified chronic kidney disease; I25.2 Old myocardial infarction; G47.33 Obstructive sleep apnea (adult) (pediatric); Z95.1 Presence of aortocoronary bypass graft; F17.220 Nicotine dependence, chewing tobacco, uncomplicated; F17.290 Nicotine dependence, other tobacco product, uncomplicated; Z79.51 Long term (current) use of inhaled steroids; Z79.899 Other long term (current) drug therapy
CPT/HCPCS: 26725; 73130; 73140; 99283

== ENCOUNTER 2025-08-26 11:48 | Day surgery (SDC) | payer MEDICARE, SELFPAY ==
[2025-08-26] VITALS (10 sets, daily range): BP systolic 117–140; BP diastolic 57–71; PULSE 52–57; RESP 12–18; TEMP 2.2–37.2; O2SAT 93–100; BMI 36.5
--- NOTE | 2025-08-26 09:08 | PAT.ANESEVAL ---
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 SURGERY 05/03/21 08:43 Any Problems With Anesthesia No 11/24/24 07:31 Cholinesterase deficiency No 11/24/24 07:31 You/Your Family Experience No 11/24/24 07:31 fever (hyperthermia) with Relationship Recent Exposure to Contagious No 11/24/24 07:31 Disease Does patient have nerve No 11/24/24 07:31 stimulator Patient instructed to have device shut off --Does patient have Pacemaker or ICD? When Was Last Pacemaker Check QUESTION #4 FULL TEXT: You/Your Family Experience fever (hyperthermia) with Anesthesia Last Oral Intake Last Oral intake: Last Oral Intake NPO since Meds taken in AM with sips of water? 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 Has anyone observed you stop breathing during sleep? STOP Results QUESTION #5 FULL TEXT : Do you snore loudly (louder than talking or can be heard through closed doors)? 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 Specify any problems Hx of Preganancy in last 3 Months Nurse Filling Out Transfusion & Questions: Date: Time: Patient unable to answer at this time (ie. 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 Hx Now Gestational Age (in weeks): EDC: Hx Hx Para Hx Section SAB No 11/24/24 07:31 [facility] Medical History Right foot sprain Right ankle sprain Fracture of fibula, right, closed Obesity (BMI 30-39.9) Chronic back pain Osteoarthritis DDD (degenerative disc disease) Lumbar spondylosis MSSA bacteremia Acute hyperglycemia COPD (chronic obstructive pulmonary disease) Blood bacterial culture positive Arthritis of sacroiliac joint Candidal dermatitis Candidiasis Sleep apnea Kidney disease Smoker H/O cardiovascular stress test History of left heart catheterization (~02/24/10) Cardiology follow-up encounter Port-A-Cath in place (~01/24/21) History of blood transfusion bladder instill antica agent Low back pain Primary hypertension Emphysema, unspecified Congenital stenosis and stricture of esophagus Cardiac murmur, unspecified Atherosclerotic heart disease Anemia Acute kidney failure, unspecified Gross hematuria BPH with obstruction/lower urinary tract symptoms Bladder cancer Nicotine dependence, cigarettes, uncomplicated JOHN (obstructive sleep apnea) COPD (chronic obstructive pulmonary disease) Acute [place], inferior wall CKD stage 3 Diabetes mellitus Hyperlipidemia Pulmonary HTN CAD (coronary artery disease) Diabetic neuropathy Mitral valve regurgitation Tricuspid valve regurgitation B12 deficiency Parkinson disease Pneumonia Tobacco use disorder, continuous Obesity Home Medications ?Medication ?Instructions ?Recorded ?Last Taken ?Type duloxetine 60 mg capsule,delayed 60 mg PO BID DEPRESSION 03/12/18 11/28/24 History release omega-3 fatty acids 1,000 mg 1,000 mg PO BID SUPPLEMENT 03/12/18 Unknown History capsule fenofibrate 160 mg tablet 160 mg PO DAILY CHOLESTEROL 01/14/21 11/27/24 History pioglitazone 45 mg tablet (Actos) 45 mg PO DAILY DIABETES 01/14/21 Unknown History primidone 250 mg tablet 250 mg PO TID PARKINSONS 01/14/21 11/28/24 History simvastatin 40 mg tablet 40 mg PO QHS CHOLESTEROL 01/14/21 11/27/24 History hydrocodone-acetaminophen 5-325mg 1 tab PO Q12H PRN Pain 03/23/21 Unknown History 5mg-325mg ipratropium 0.5 mg-albuterol 3 mg 3 ml inhalation Q6H COPD J44.9 07/03/22 Unknown Rx (2.5 mg base)/3 mL nebulization #180 mL soln carbidopa 25 mg-levodopa 100 mg 1 tab PO BID PARKINSON'S 10/31/23 11/28/24 History tablet losartan 25 mg tablet 25 mg PO QDAY HTN 04/01/24 11/28/24 History insulin glargine 100 unit/mL (3 20 unit subcut DAILY Diabetes 10/05/24 Unknown History mL) subcutaneous pen (Lantus Solostar U-100 Insulin) [facility] 11/21/24 Unknown History Verio test strips) blood-glucose meter (OneTouch 11/21/24 Unknown History Verio Flex Meter) gabapentin 600 mg tablet 600 mg PO TID NEUROPATHY 11/21/24 11/28/24 History lancets 33 gauge (OneTouch Delica 11/21/24 Unknown History Plus Lancet) polyethylene glycol 3350 17 17 g PO QHS 01/19/25 Unknown History gram/dose oral powder (Miralax) cholecalciferol (vitamin D3) 1,250 1,250 mcg PO QMONTH 01/24/25 Unknown History mcg (50,000 unit) capsule duloxetine 60 mg capsule,delayed 60 mg PO BID 01/24/25 Unknown History release (Cymbalta) budesonide 160 mcg-glycopyr 9 2 inh inhalation BID WHEEZING 04/23/25 Unknown Rx mcg-formot 4.8 mcg/actuation HFA #10.7 grams inhaler (Breztri Aerosphere) calcium 600 mg (as 1 tab PO BID 05/11/25 Unknown History carbonate)-vitamin D3 5 mcg (200 unit) tablet (Calcium 600 + D(3)) omega 2-ilv-lth-fish oil 1,200 mg 1 cap PO BID 05/11/25 Unknown History (144 mg-216 mg) capsule (Fish Oil) pramipexole 0.5 mg tablet 0.5 mg PO 05/11/25 Unknown History guaifenesin 1,200 mg tablet, 1,200 mg PO Q12H #60 tabs 05/15/25 Unknown Rx extended release 12 hr ciprofloxacin HCl 500 mg tablet 500 mg PO BID PRN 06/08/25 Unknown History Allergy/AdvReac Type Severity Reaction Status Date / Time cefepime Allergy Severe Anaphylaxis Verified 08/25/25 13:38 cefazolin Allergy Intermediate Hives Verified 08/25/25 13:38 Family History Mother Ovarian cancer Father Heart disease Brother Leukemia Surgical History Status post radical cystoprostatectomy Hx of transurethral resection of prostate (~01/05/21) History of quadruple bypass History of hand surgery History of ankle surgery Hx of cystoscopy S/P TURP Previous back surgery S/P CABG x 4 Social History current occupational status: retired Smoking Status: Current every day smoker tobacco type: cigars and smokeless tobacco alcohol intake: never substance use type: does not use caffeine: Yes Type: coffee Number of servings: 1 eating out: rarely or never Prior Cardiac Testing/Procedures Prior Cardiac Testing/Procedures: Echocardiogram (60%) Addt'l Information Additional Findings: Sinus Avi Recommendation Anesthesia Recommendation Anesthesia recommendation: F/U recommended (PAT interview not completed. will approve when nurse interview completed)
--- NOTE | 2025-08-26 12:12 | PCM.PRE.AN2 ---
ASA Classification* ASA Classification ASA Classification: 4 Assessment & Plan Anesthesia* Anesthesia Assessment Anesthesia Assessment: Discussed sedation and/or anesthesia options, risks, benefits, and alternatives with patient/parents/legal guardian/POA. Questions invited. The patient/parents/legal guardian/POA seems to understand and agrees to proceed with anesthesia plan. Reviewed the physical assessment, medical history, allergy history and patient home medications list prior to surgery/procedure/anesthetic and documented any changes. Performed airway and anesthesia risk assessments. Procedural Plan Add'l anesthesia plan details: Will attempt to MAC the patient but will convert to general with LMA if the patient is not tolerating a MAC with digital block Anesthesia Type Anesthesia Type: General History Source History Obtained from:: Patient and Chart Anesthesia Focused Assessment* Temperature: 36 F Pulse Rate: 55 Blood Pressure: 117/71 Respiratory Rate: 12 Pulse Ox: 100 Oxygen Delivery Method: Room Air Airway Assessment Mouth opens: >3 cm Mallampati Score: III Teeth Condition: Missing Labs Anesthesia Preop lab: CBC WBC, (4.4-11.0) 5.3 K/mm3 05/11/25, 16:10 RBC, (4.6-6.2) 3.41 M/mm3 L 05/11/25, 16:10 Hgb, (13.0-16.5) 10.9 g/dL L 05/11/25, 16:10 Hct, (40-54) 33.5 % L 05/11/25, 16:10 Plt Count, (150-450) 230 K/mm3 05/11/25, 16:10 CHEMISTRY Potassium, (3.3-5.1) 4.8 mmol/L 05/11/25, 16:10 Sodium, (133-145) 132 mmol/L L 05/11/25, 16:10 Magnesium, (1.6-2.6) 2.0 mg/dL 11/23/24, 05:21 Phosphorus, (2.5-4.9) 2.8 mg/dL 11/23/24, 05:21 BUN, (4-19) 21 mg/dL H 05/11/25, 16:10 Creatinine, (0.70-1.20) 1.04 mg/dL 05/11/25, 16:10 Glucose, (70-99) 187 mg/dL H 05/11/25, 16:10 POC Glucose, (74-106) 177 mg/dL H 01/28/25, 11:35 TSH, (0.358-3.740) 3.280 uIU/mL 11/21/24, 17:22 COAG PT, (11.7-14.9) 15.3 SECONDS H 01/24/25, 12:20 Pre-Assessment Diagnosis/Proposed Procedure Planned Operative Procedure(s): Left Finger ORIF Anesthesia History Anesthesia History - ambulance paramedic: Anesthesia History - ambulance paramedic Hx Hospitalization Yes: PREV. SURGERY 05/03/21 08:43 Any Problems With Anesthesia No 11/24/24 07:31 Cholinesterase deficiency No 11/24/24 07:31 You/Your Family Experience No 11/24/24 07:31 fever (hyperthermia) with Relationship Recent Exposure to Contagious No 11/24/24 07:31 Disease Does patient have nerve No 11/24/24 07:31 stimulator Patient instructed to have device shut off --Does patient have Pacemaker or ICD? When Was Last Pacemaker Check QUESTION #4 FULL TEXT: You/Your Family Experience fever (hyperthermia) with Anesthesia Last Oral Intake Last Oral intake: Last Oral Intake NPO since Meds taken in AM with sips of water? Meds patient instructed to take am of surgery PONV PONV - ambulance paramedic: PONV - ambulance paramedic Female HX of Motion Sickness HX of N/V After Surgery Non-Smoker Duration of Surgery greater than 60 minutes Number of Risk Factors PONV Score Height & Weight Height & Weight: Anesthesia: Height & Weight Height 5 ft 8 in 08/25/25 13:37 Respiratory Assessment Respiratory Assessment - ambulance paramedic: Respiratory Tract Infection Hx - ambulance paramedic Hx Respiratory Tract Infection No 11/24/24 07:31 STOP Sleep Apnea STOP Sleep Apnea - ambulance paramedic: STOP Sleep Apnea - ambulance paramedic Hx Hypertension No 06/12/25 14:04 Hx Sleep Apnea Yes 01/24/25 16:23 CPAP Yes 01/24/25 16:23 BIPAP No 01/24/25 16:23 Do you snore loudly (louder than talking or can be heard Do you often feel tired/ fatigued/ sleepy during daytime? Has anyone observed you stop breathing during sleep? STOP Results QUESTION #5 FULL TEXT : Do you snore loudly (louder than talking or can be heard through closed doors)? Tobacco Use History Tobacco Use History - ambulance paramedic: Tobacco Use History - ambulance paramedic Tobacco Use Cigarettes 01/27/25 12:29 Smoking Status Current every day smoker 08/24/25 20:51 Hx Tobacco Use Yes 01/24/25 16:23 Years Smoking Packs Smoked per Day Smoking Cessation Date was within the last 15 years Hx Smoking Cessation Date Hx Smoking Cessation Yes 08/24/25 20:51 Counseling Hematologic Medial History Hematologic Hx - ambulance paramedic: Hematologic Medical Hx - rn documentation Hx of Blood Transfusion Hx of Transfusion in last 3 Months Date of Last Transfusion (if within last 3 months) Ever experience any problems with transfusion(s)? Specify any problems Hx of Preganancy in last 3 Months Nurse Filling Out Transfusion & Questions: Date: Time: Patient unable to answer at this time (ie. confused, unrespo /Reproduction History /Reproductive History - ambulance paramedic: /Reproductive Hx- ambulance paramedic Hx Now Gestational Age (in weeks): EDC: Hx Hx Para Hx Section SAB No 11/24/24 07:31 Active Medications Active Medications: Current Medications Generic Name Dose Route Start Last Admin Trade Name Freq PRN Reason Stop Dose Admin Lactated Ringer's 1,000 mls @ 15 mls/hr 08/26/25 12:15 IV .Q48H JANET PFSH Medical History Right foot sprain Right ankle sprain Fracture of fibula, right, closed Obesity (BMI 30-39.9) Chronic back pain Osteoarthritis DDD (degenerative disc disease) Lumbar spondylosis MSSA bacteremia Acute hyperglycemia COPD (chronic obstructive pulmonary disease) Blood bacterial culture positive Arthritis of sacroiliac joint Candidal dermatitis Candidiasis Sleep apnea Kidney disease Smoker H/O cardiovascular stress test History of left heart catheterization (~02/24/10) Cardiology follow-up encounter Port-A-Cath in place (~01/24/21) History of blood transfusion bladder instill antica agent Low back pain Primary hypertension Emphysema, unspecified Congenital stenosis and stricture of esophagus Cardiac murmur, unspecified Atherosclerotic heart disease Anemia Acute kidney failure, unspecified Gross hematuria BPH with obstruction/lower urinary tract symptoms Bladder cancer Nicotine dependence, cigarettes, uncomplicated JOHN (obstructive sleep apnea) COPD (chronic obstructive pulmonary disease) Acute [place], inferior wall CKD stage 3 Diabetes mellitus Hyperlipidemia Pulmonary HTN CAD (coronary artery disease) Diabetic neuropathy Mitral valve regurgitation Tricuspid valve regurgitation B12 deficiency Parkinson disease Pneumonia Tobacco use disorder, continuous Obesity Home Medications ?Medication ?Instructions ?Recorded ?Last Taken ?Type duloxetine 60 mg capsule,delayed 60 mg PO BID DEPRESSION 03/12/18 08/25/25 History release omega-3 fatty acids 1,000 mg 1,000 mg PO BID SUPPLEMENT 03/12/18 08/25/25 History capsule fenofibrate 160 mg tablet 160 mg PO DAILY CHOLESTEROL 01/14/21 08/25/25 History pioglitazone 45 mg tablet (Actos) 45 mg PO DAILY DIABETES 01/14/21 08/25/25 History primidone 250 mg tablet 250 mg PO TID PARKINSONS 01/14/21 08/26/25 History simvastatin 40 mg tablet 40 mg PO QHS CHOLESTEROL 01/14/21 08/25/25 History hydrocodone-acetaminophen 5-325mg 1 tab PO Q12H PRN Pain 03/23/21 08/25/25 History 5mg-325mg ipratropium 0.5 mg-albuterol 3 mg 3 ml inhalation Q6H COPD J44.9 07/03/22 Unknown Rx (2.5 mg base)/3 mL nebulization #180 mL soln carbidopa 25 mg-levodopa 100 mg 1 tab PO BID PARKINSON'S 10/31/23 11/28/24 History tablet losartan 25 mg tablet 25 mg PO QDAY HTN 04/01/24 08/25/25 History insulin glargine 100 unit/mL (3 20 unit subcut DAILY Diabetes 10/05/24 08/26/25 History mL) subcutaneous pen (Lantus Solostar U-100 Insulin) blood sugar diagnostic (OneTouch 11/21/24 Unknown History Verio test strips) blood-glucose meter (OneTouch 11/21/24 Unknown History Verio Flex Meter) gabapentin 600 mg tablet 600 mg PO TID NEUROPATHY 11/21/24 08/26/25 History lancets 33 gauge (OneTouch Delica 11/21/24 Unknown History Plus Lancet) polyethylene glycol 3350 17 17 g PO QHS 01/19/25 Unknown History gram/dose oral powder (Miralax) cholecalciferol (vitamin D3) 1,250 1,250 mcg PO QMONTH 01/24/25 08/25/25 History mcg (50,000 unit) capsule duloxetine 60 mg capsule,delayed 60 mg PO BID 01/24/25 08/25/25 History release (Cymbalta) budesonide 160 mcg-glycopyr 9 2 inh inhalation BID WHEEZING 04/23/25 Unknown Rx mcg-formot 4.8 mcg/actuation HFA #10.7 grams inhaler (Breztri Aerosphere) calcium 600 mg (as 1 tab PO BID 05/11/25 08/25/25 History carbonate)-vitamin D3 5 mcg (200 unit) tablet (Calcium 600 + D(3)) omega 9-rso-nlh-fish oil 1,200 mg 1 cap PO BID 05/11/25 08/25/25 History (144 mg-216 mg) capsule (Fish Oil) pramipexole 0.5 mg tablet 0.5 mg PO TID 05/11/25 08/25/25 History Allergy/AdvReac Type Severity Reaction Status Date / Time cefepime Allergy Severe Anaphylaxis Verified 08/26/25 12:27 cefazolin Allergy Intermediate Hives Verified 08/26/25 12:27 Family History Mother Ovarian cancer Father Heart disease Brother Leukemia Surgical History Status post radical cystoprostatectomy Hx of transurethral resection of prostate (~01/05/21) History of quadruple bypass History of hand surgery History of ankle surgery Hx of cystoscopy S/P TURP Previous back surgery S/P CABG x 4 Social History current occupational status: retired Smoking Status: Current every day smoker tobacco type: cigarettes, cigars and smokeless tobacco alcohol intake: never substance use type: does not use caffeine: Yes Type: coffee Number of servings: 1 eating out: rarely or never Prior Cardiac Testing/Procedures Prior Cardiac Testing/Procedures: Echocardiogram (EF of 60%) Addt'l Information Additional Findings: Sinus Avi Review of Systems (Anesthesia) ROS Narrative System reviewed and no additional complaints, except as documented. Physical Exam Const alert and oriented x3 Resp normal respiratory effort and normal air movement Auscultation: wheezes expiratory wheezes (very light wheeze- pre-op breathing treatment ) Cardio regular rate and regular rhythm Back/Spine normal ROM Neuro oriented x3 and moves all extremities
[2025-08-26] MEDS: Lactated Ringers 1,000 ML 15 ML IV (12:54)
--- NOTE | 2025-08-26 13:37 | PCM.HP.STD ---
HPI - General HPI Narrative AKASH GREGORY, is a 85 M who presents today for surgical stabilization with screw for his displaced left long finger proximal phalanx shaft after an injury working fracture occurred when the patient was using a grain auger, and the crank slipped from his hand, resulting in the injury. The fracture is described as unstable and difficult to heal without intervention. PMH sigificant for CAD s/p CABG, DM, COPD, PSA, HTN, current smoker. The patient has a history of diabetes mellitus, which was previously poorly controlled with an A1c of 11 due to medication changes. The patient's blood glucose levels have improved since resuming glimepiride, with daily readings under 150 mg/d He was evaluated in the ED with positive XRay findings and was treated with splinting and was assessed initially with Dr. Villafuerte yesterday. Dr. Villafuerte discussed with and daugthter in the room surgical stabilization for earlier mobilization, it's risks and benefits and alternatives. Surgical intervention was recommended given unstable nature of his fracture and risk of prolonged immobilization. He wished to proceed with surgery and informed consent was obtained. He denies being on blood thinners, he denies changes in his health since his visit yesterday. [facility] Medical History Right foot sprain Right ankle sprain Fracture of fibula, right, closed Obesity (BMI 30-39.9) Chronic back pain Osteoarthritis DDD (degenerative disc disease) Lumbar spondylosis MSSA bacteremia Acute hyperglycemia COPD (chronic obstructive pulmonary disease) Blood bacterial culture positive Arthritis of sacroiliac joint Candidal dermatitis Candidiasis Sleep apnea Kidney disease Smoker H/O cardiovascular stress test History of left heart catheterization (~02/24/10) Cardiology follow-up encounter Port-A-Cath in place (~01/24/21) History of blood transfusion bladder instill antica agent Low back pain Primary hypertension Emphysema, unspecified Congenital stenosis and stricture of esophagus Cardiac murmur, unspecified Atherosclerotic heart disease Anemia Acute kidney failure, unspecified Gross hematuria BPH with obstruction/lower urinary tract symptoms Bladder cancer Nicotine dependence, cigarettes, uncomplicated JOHN (obstructive sleep apnea) COPD (chronic obstructive pulmonary disease) Acute [place], inferior wall CKD stage 3 Diabetes mellitus Hyperlipidemia Pulmonary HTN CAD (coronary artery disease) Diabetic neuropathy Mitral valve regurgitation Tricuspid valve regurgitation B12 deficiency Parkinson disease Pneumonia Tobacco use disorder, continuous Obesity Home Medications ?Medication ?Instructions ?Recorded ?Last Taken ?Type duloxetine 60 mg capsule,delayed 60 mg PO BID DEPRESSION 03/12/18 08/25/25 History release omega-3 fatty acids 1,000 mg 1,000 mg PO BID SUPPLEMENT 03/12/18 08/25/25 History capsule fenofibrate 160 mg tablet 160 mg PO DAILY CHOLESTEROL 01/14/21 08/25/25 History pioglitazone 45 mg tablet (Actos) 45 mg PO DAILY DIABETES 01/14/21 08/25/25 History primidone 250 mg tablet 250 mg PO TID PARKINSONS 01/14/21 08/26/25 History simvastatin 40 mg tablet 40 mg PO QHS CHOLESTEROL 01/14/21 08/25/25 History hydrocodone-acetaminophen 5-325mg 1 tab PO Q12H PRN Pain 03/23/21 08/25/25 History 5mg-325mg ipratropium 0.5 mg-albuterol 3 mg 3 ml inhalation Q6H COPD J44.9 07/03/22 Unknown Rx (2.5 mg base)/3 mL nebulization #180 mL soln carbidopa 25 mg-levodopa 100 mg 1 tab PO BID PARKINSON'S 10/31/23 11/28/24 History tablet losartan 25 mg tablet 25 mg PO QDAY HTN 04/01/24 08/25/25 History insulin glargine 100 unit/mL (3 20 unit subcut DAILY Diabetes 10/05/24 08/26/25 History mL) subcutaneous pen (Lantus Solostar U-100 Insulin) blood sugar diagnostic (OneTouch 11/21/24 Unknown History Verio test strips) blood-glucose meter (OneTouch 11/21/24 Unknown History Verio Flex Meter) gabapentin 600 mg tablet 600 mg PO TID NEUROPATHY 11/21/24 08/26/25 History lancets 33 gauge (OneTouch Delica 11/21/24 Unknown History Plus Lancet) polyethylene glycol 3350 17 17 g PO QHS 01/19/25 Unknown History gram/dose oral powder (Miralax) cholecalciferol (vitamin D3) 1,250 1,250 mcg PO QMONTH 01/24/25 08/25/25 History mcg (50,000 unit) capsule duloxetine 60 mg capsule,delayed 60 mg PO BID 01/24/25 08/25/25 History release (Cymbalta) budesonide 160 mcg-glycopyr 9 2 inh inhalation BID WHEEZING 04/23/25 Unknown Rx mcg-formot 4.8 mcg/actuation HFA #10.7 grams inhaler (Breztri Aerosphere) calcium 600 mg (as 1 tab PO BID 05/11/25 08/25/25 History carbonate)-vitamin D3 5 mcg (200 unit) tablet (Calcium 600 + D(3)) omega 5-fxw-skb-fish oil 1,200 mg 1 cap PO BID 05/11/25 08/25/25 History (144 mg-216 mg) capsule (Fish Oil) pramipexole 0.5 mg tablet 0.5 mg PO TID 05/11/25 08/25/25 History Allergy/AdvReac Type Severity Reaction Status Date / Time cefepime Allergy Severe Anaphylaxis Verified 08/26/25 12:27 cefazolin Allergy Intermediate Hives Verified 08/26/25 12:27 Family History Mother Ovarian cancer Father Heart disease Brother Leukemia Surgical History Status post radical cystoprostatectomy Hx of transurethral resection of prostate (~01/05/21) History of quadruple bypass History of hand surgery History of ankle surgery Hx of cystoscopy S/P TURP Previous back surgery S/P CABG x 4 Social History current occupational status: retired Smoking Status: Current every day smoker tobacco type: cigarettes, cigars and smokeless tobacco alcohol intake: never substance use type: does not use caffeine: Yes Type: coffee Number of servings: 1 eating out: rarely or never Vital Signs Vital Signs Vital Signs: 08/26/25 12:44 08/26/25 12:44 08/26/25 13:16 Temperature 97.4 F L 36 F L Temperature Source Temporal Pulse Rate 55 L 55 L Respiratory Rate 12 12 Respiratory Pattern Normal Blood Pressure 117/71 117/71 Blood Pressure Mean 86 Blood Pressure Source Monitor Blood Pressure Position Semi-Fowlers Blood Pressure Location Right Arm Pulse Ox 100 100 Oxygen Delivery Method Room Air Room Air Weight Weight: 240 lb 4.862 oz Body Mass Index (BMI) 36.5 Physical Exam Narrative Normotensive, afebrile. In no acute distress. Undergoing breathing treatment. Left upper extremity Hand with expected swelling. Fingers are pink and well perfused. Abrasion with dried blood on left index finger. Left long finger skin is intact, no nailbed injury noted. Flexion, extension with MCP, PIP, DIP. Able to perform hyperextension. Collateral ligaments intact. Sensation to touch intact to light touch. No scissors or angulation deformity No respiratory distress, able to speak short sentences without effort or accessory muscle use. Abdomen is not obstended. Assessment & Plan Assessment/Plan (1) Displaced fracture of proximal phalanx of finger of left hand: PLAN: Plan Surgical stabilization with screw placement with Dr. Villafuerte Perioperative antibitoics. He is noted to bed allergic to Cefepime and Cefazolin. Will use alternative.
--- NOTE | 2025-08-26 13:40 | RAD_ITS ---
PROCEDURE: FINGER(S) MIN 2 VIEWS 08/26/2025 REASON FOR EXAM: ORIF FINGER TECHNIQUE: Procedure Code: RADFIN Modality: DX Procedure: FINGER(S) MIN 2 VIEWS Laterality: Left COMPARISON: 08/24/2025 FINDINGS: Interval pinning of the transfers fracture 3rd digit proximal phalanx holding it in near anatomic alignment. RAD/Finger(s) Min 2 Views IMPRESSION: Status post pinning of the 3rd proximal phalanx fracture. Reading Location: [place] [id number]
[2025-08-26] MEDS: Lactated Ringers 500 ML IV (14:13)
[2025-08-26] MEDS: Midazolam 2 MG/2 ML Syringe 1 MG IV (14:15)
[2025-08-26] MEDS: Lidocaine 1% (20 ml mdv) 20 ML Vial (14:21)
[2025-08-26] MEDS: Lidocaine 1% (5 ml sdv) 5 ML Vial 3 ML IV (14:24)
[2025-08-26] MEDS: PROPOFOL 36.28 MG IV (14:25)
[2025-08-26] MEDS: fentaNYL 100 MCG/2 ML Ampul 50 MCG IV (14:36)
--- NOTE | 2025-08-26 15:38 | PCM.POST.ANE ---
Anesthesia: Postop Eval I Current Vital Signs Temperature: 98.9 F Pulse Rate: 56 Blood Pressure: 117/59 Respiratory Rate: 14 Pulse Ox: 93 Oxygen Delivery Method: Room Air Assessment Airway patent: Yes Spontaneous unlabored respirations: Yes Mental status: Awake and Calm nausea: No Vomiting: No Anesthesia Complication: No Fluid Hydration Crystalloid volume administer (ml): 500 Total IV fluid infused: 500 Progress Note Anesthesia document: Postop Eval 1 completed: Yes
--- NOTE | 2025-08-26 16:59 | PCM.OPRPT ---
Operative Report (Standard) Operative Information Date of Procedure: 08/26/25 Pre-Operative Diagnosis: Left long finger proximal phalanx fracture Post-Operative Diagnosis: Same Surgery/Procedure Performed: 1) open reduction internal fixation of the left long finger proximal phalanx fracture with intramedullary screw tab card press operator: Hank Tugger Operator: Sergio Polo Tasks completed by secretary administrative assistant: Retracting Type of Anesthesia: Local MAC (10 cc of 50/50 mixture of 1% lidocaine and quarter percent Marcaine) RN Documented Start/Stop Times: Operation Date: 08/26/25 14:00 Case Time Into Pre-Op 08/26/25 12:02 Anesthesia Start 08/26/25 14:13 Into Room 08/26/25 14:13 Out of Pre-Op 08/26/25 14:24 Procedure Start 08/26/25 14:35 Procedure End 08/26/25 15:27 Anesthesia End 08/26/25 15:34 Out of Room 08/26/25 15:34 Into Recovery 08/26/25 15:37 Into Phase II Recovery 08/26/25 16:18 Out of Recovery 08/26/25 16:18 Out of Phase II 08/26/25 16:57 Procedure Start Time: 14:35 Procedure Stop Time: 15:27 Select all DRAINS/GRAFTS/IMPLANTS that apply: Implanted device (Intramedullary screw) Implanted device details: 42 mm x 2 mm ExsoMed IM screw Estimated Blood Loss: minimal Specimen collected: No Description of surgery: Indications: Rick Cramer is a delightful 85-year-old male with a left long finger P1 transverse fracture. Presents today for open reduction internal fixation and understands the risks, benefits, and alternatives to the procedure. Procedure details: Patient was correctly identified preoperative holding and marked, and taken back to the operating room where they were administered MAC and local anesthesia as noted above. They were prepped and draped in sterile fashion and all proper timeouts were performed per protocol. I began the procedure by taking an x-ray of the fracture. I was able to reduce the fracture with gentle manipulation. I then took a guidewire for an intramedullary screw and drilled from the proximal radial side of P1 to the distal ulnar side of P1 across the fracture line stabilizing the fracture. An ulnar to radial K wire was also used to stabilize the fracture. The mini C arm x-rays confirmed proper placement and reduction (on PA and lateral). I then checked the digital cascade and there was no angulation or rotation of the ring finger or scissoring. Therefore we proceeded and a cut down with 15 blade scalpel was made down to the base of P1 (this was the open part of the procedure). A 42 mm x 2 mm screw was then placed through the guidewire into the proximal phalanx across the fracture line bridging the gap and filling the medullary cavity well. The PA and lateral x-rays were acceptable. I stressed the fracture line with radial and ulnar stress, as well as flexion and extension, and the construct appeared to be rigid and stable. The cascade was checked one more time and was acceptable. With the guidewire removed, I then irrigated the small wound on the dorsum of the hand and closed with an interrupted horizontal mattress 4-0 nylon suture. The patient tolerated the procedure well and was placed in a plaster splint intrinsic plus. Postoperative plan: Follow-up in 1 week for removal of the splint and initiation of hand therapy with early protective range of motion and an Orthoplast splint. Surgical Findings: Unstable P1 fracture of the left long finger Stable with regards to movement when stressed on fluoroscopy after screw was placed (no movement) Complications Complications: No
--- NOTE | 2025-08-26 18:42 | POSTOPAN2_ITS ---
Anesthesia Postop Eval I Sum Postop Eval Completion status Anesthesia document: Postop Eval 1 completed: Yes Anesthesia Postop Eval I Summary Anesthesia Postop Eval I Summary: Anesthesia Postop Eval I: Assessment Summary Airway patent Yes 08/26/25 15:39 [email or web address] Spontaneous unlabored Yes 08/26/25 15:39 [email or web address] respirations Mental status Awake,Calm 08/26/25 15:39 [email or web address] nausea No 08/26/25 15:39 [email or web address] Vomiting No 08/26/25 15:39 [email or web address] Anesthesia Postop Eval I: Fluid Summary Crystalloid volume administer 500 08/26/25 15:39 [email or web address] (ml) Colloids volume administered ( ml) Blood Product volume administered (ml) Total IV fluid infused 500 08/26/25 15:39 [email or web address] Anesthesia Postop Eval I: Summary Notes Anesthesia Complication No 08/26/25 15:39 [email or web address] Anesthesia Complication Comment: Post-operative progress note Anesthesia: Postop Eval II Evaluation Mental status: Awake and Calm Pain Level: 0 nausea: No Vomiting: No Complications Anesthesia Complication: No
--- NOTE | 2025-08-26 18:42 | PCM.POSTANE2 ---
Anesthesia Postop Eval I Sum Postop Eval Completion status Anesthesia document: Postop Eval 1 completed: Yes Anesthesia Postop Eval I Summary Anesthesia Postop Eval I Summary: Anesthesia Postop Eval I: Assessment Summary Airway patent Yes 08/26/25 15:39 [email or web address] [email or web address] Spontaneous unlabored Yes 08/26/25 15:39 DEPUTY [email or web address] [email or web address] respirations Mental status Awake,Calm 08/26/25 15:39 [email or web address] [email or web address] nausea No 08/26/25 15:39 DEPUTY GRAND [email or web address] Vomiting No 08/26/25 15:39 DEPUTY [email or web address] [email or web address] Anesthesia Postop Eval I: Fluid Summary Crystalloid volume administer 500 08/26/25 15:39 DEPUTY [email or web address] (ml) Colloids volume administered ( ml) Blood Product volume administered (ml) Total IV fluid infused 500 08/26/25 15:39 DEPUTY GRAND [email or web address].[email or web address] Anesthesia Postop Eval I: Summary Notes Anesthesia Complication No 08/26/25 15:39 DEPUTY [email or web address] [email or web address] Anesthesia Complication Comment: Post-operative progress note Anesthesia: Postop Eval II Evaluation Mental status: Awake and Calm Pain Level: 0 nausea: No Vomiting: No Complications Anesthesia Complication: No
== END 2025-08-26 16:57 | disposition home or self-care (01) ==
LOC: SDC 11:48 → AC 11:59
PROVIDERS: PCP Nurse Practitioner Family; Referring Provider Surgery Plastic and Reconstructive Surgery; Visit Provider Surgery Plastic and Reconstructive Surgery
PROC: (CPT 26735; principal; 2025-08-26 13:45)
DX: S62.611A Displaced fracture of proximal phalanx of left index finger, initial encounter for closed fracture (principal); G20.C Parkinsonism, unspecified; J43.9 Emphysema, unspecified; E11.9 Type 2 diabetes mellitus without complications; Z79.4 Long term (current) use of insulin; I25.10 Atherosclerotic heart disease of native coronary artery without angina pectoris; F17.210 Nicotine dependence, cigarettes, uncomplicated; F17.290 Nicotine dependence, other tobacco product, uncomplicated; F17.220 Nicotine dependence, chewing tobacco, uncomplicated; I10 Essential (primary) hypertension; G47.33 Obstructive sleep apnea (adult) (pediatric); Z79.899 Other long term (current) drug therapy; Z95.1 Presence of aortocoronary bypass graft; X58.XXXA Exposure to other specified factors, initial encounter
CPT/HCPCS: 26735; 01830; 73140; 76000; 82962; 94640; C1713; J2405

== ENCOUNTER → 2025-10-23 | Outpatient (CLI) | payer MEDICARE, SELFPAY ==
--- NOTE | 2025-10-23 08:46 | NM_ITS ---
PROCEDURE: BONE SCAN WHOLE BODY 10/23/2025 REASON FOR EXAM: F/U BLADDER CANCER. Status post cystectomy and ileal conduit. TECHNIQUE: Procedure Code: NMBO Modality: NM Procedure: BONE SCAN WHOLE BODY Whole-body bone scan with anterior and posterior views. Imaging at 3.5 hours. RADIOPHARMACEUTICAL: 27.3 mCi Technetium-99m MDP IV COMPARISON: None FINDINGS: There are multiple foci of increased activity in the cervical, lower thoracic, and lumbar spine consistent with facet arthropathy and degenerative disc disease. There is increased activity at the left shoulder and left SI joint, consistent with arthropathy. NM/Bone Scan Whole Body IMPRESSION: 1. There are no findings of abnormal skeletal activity to suggest neoplastic d isease. 2. Other findings as noted. Reading Location: [id number]
== END | disposition home or self-care (01) ==
LOC: NM 08:46
PROVIDERS: PCP Nurse Practitioner Family; Referring Provider Internal Medicine Hematology & Oncology; Visit Provider Internal Medicine Hematology & Oncology
DX: C67.4 Malignant neoplasm of posterior wall of bladder (principal); C61 Malignant neoplasm of prostate
CPT/HCPCS: 78306; A9503

== ENCOUNTER → 2025-10-27 | Outpatient (CLI) | payer MEDICARE, SELFPAY ==
--- NOTE | 2025-10-27 15:15 | RAD_ITS ---
PROCEDURE: HAND MIN 3 VIEWS 10/27/2025 REASON FOR EXAM: FRACTURE OF PROXIMAL PHALANX TECHNIQUE: Procedure Code: DAMION Modality: DX Procedure: HAND MIN 3 VIEWS Four views of the left hand COMPARISON: September 25, 2025 FINDINGS: There is hardware fixation of the 3rd proximal phalanx with an impacted fracture, unchanged from the prior. There is increased callus formation with early bridging at the proximal lateral margin of the 3rd proximal phalanx fracture. Soft tissue swelling is noted. There is a healing fracture of the 2nd middle phalanx with bridging callus noted at the lateral margin. Mineralization is normal. There is no visible atherosclerosis. RAD/Hand Min 3 Views IMPRESSION: There is hardware fixation of the 3rd proximal phalanx with an impacted fractur e, unchanged from the prior. There is increased callus formation with early bridging at the proximal lateral margin of the 3rd proximal phalanx fracture. There is a healing fracture of the 2nd middle phalanx with bridging callus note d at the lateral margin. Reading Location: [facility]
== END | disposition home or self-care (01) ==
LOC: RAD 15:10
PROVIDERS: PCP Nurse Practitioner Family; Referring Provider Surgery Plastic and Reconstructive Surgery; Visit Provider Surgery Plastic and Reconstructive Surgery
DX: S62.619A Displaced fracture of proximal phalanx of unspecified finger, initial encounter for closed fracture (principal); X58.XXXA Exposure to other specified factors, initial encounter
CPT/HCPCS: 73130

== ENCOUNTER → 2025-10-30 | Outpatient (CLI) | payer MEDICARE, SELFPAY ==
--- NOTE | 2025-10-30 08:26 | CT_ITS ---
PROCEDURE: CT CHEST, ABD, PEL W/CONTRAST 10/30/2025 REASON FOR EXAM: F/U BLADDER CANCER Prior cystoprostatectomy. TECHNIQUE: Chest, abdomen and pelvis CT with intravenous contrast. Coronal and Sagittal reconstruction series were provided. One or more dose reduction techniques were used (e.g., Automated exposure control, adjustment of the mA and/or kV according to patient size, use of iterative reconstruction technique. PATIENT PREPARATION: Per protocol ORAL CONTRAST TYPE: None. CONTRAST: Isovue-300 VOLUME: 100mL RADIATION DOSE SUMMARY: CTDlvol: 21 mGy DLP: 2200.48 mGycm COMPARISON: Prior study dated August 03, 2024. FINDINGS: CT CHEST: Hardware: A right-sided port a catheter is seen with the tip in the superior vena cava. Lymph nodes: No suspicious lymph nodes are seen. Heart and Vasculature: The heart is nonenlarged. Atherosclerotic calcifications of the thoracic aorta. Pulmonary arteries are unremarkable. Coronary artery calcification. Lungs and Airways: The lungs are well aerated. No evidence of mass lesion or infiltration. Pleura: No pleural effusion. Bones: Degenerative changes of the thoracic spine. CT ABDOMEN/PELVIS: Liver: Borderline hepatomegaly. No focal lesion is seen. Gallbladder: Multiple small layering gallstones. Spleen: Normal size. Pancreas: Diffuse fatty atrophy. Adrenals: Unremarkable Kidneys: Moderate degree of right hydronephrosis and right hydroureter. The right ureter is dilated down to the ileal loop. Atherosclerotic calcification of intrarenal arterial branches on both sides. Bladder: The patient is status post resection of the urinary bladder in the prostate. Bowel: Scattered sigmoid diverticula. Appendix: Unremarkable Lymph nodes: No retroperitoneal lymph nodes are seen. Vasculature: Atherosclerotic calcification of the abdominal aorta and the major visceral branches. Peritoneum / Retroperitoneum: Small bilateral inguinal hernias containing fat slightly worse on the right side. Bones: Degenerative changes of the spine. CT/CT Chest, Abd, Pel w/Contrast IMPRESSION: Status post cystectomy with ileal loop. Moderate degree of right hydronephrosis and right hydroureter down to the ileal loop. Multiple layering gallstones. Reading Location: [place] [id number]
[2025-10-30] MEDS: 0.9 % NaCl (Sterile) Posiflush 10 mL IV (08:30)
[2025-10-30 08:52] LABS: CREATININE FINGERSTICK 1.5 mg/dL (0.70-1.30); EGFR FINGERSTICK 49.0000 mL/min (>60)
== END | disposition home or self-care (01) ==
LOC: CT 08:26
PROVIDERS: PCP Nurse Practitioner Family; Referring Provider Internal Medicine Hematology & Oncology; Visit Provider Internal Medicine Hematology & Oncology
DX: C67.4 Malignant neoplasm of posterior wall of bladder (principal); C61 Malignant neoplasm of prostate
CPT/HCPCS: 71260; 74177; Q9967; A4216

== ENCOUNTER → 2025-11-11 | Outpatient (CLI) | payer MEDICARE, SELFPAY ==
--- NOTE | 2025-11-11 15:51 | RAD_ITS ---
PROCEDURE: CHEST PA AND LATERAL 11/11/2025 REASON FOR EXAM: SOB TECHNIQUE: Procedure Code: RADCXR Modality: DX Procedure: CHEST PA AND LATERAL COMPARISON: 06/08/2025 FINDINGS: Hardware: Right-sided MediPort and median sternotomy wires are present. Heart: The heart size is normal. Mediastinum: The mediastinal contour is unremarkable. Lungs: There is mild pulmonary vascular congestion. No focal consolidation, pneumothorax, or sizable pleural effusion. Bones: The bones are unremarkable. RAD/Chest PA and Lateral IMPRESSION: Mild pulmonary vascular congestion. No definite focal consolidation. Reading Location[facility]
== END | disposition home or self-care (01) ==
LOC: MTRAD 15:51
PROVIDERS: PCP Nurse Practitioner Family; Referring Provider Physician Assistant; Visit Provider Physician Assistant
DX: R06.02 Shortness of breath (principal)
CPT/HCPCS: 71046

== ENCOUNTER 2025-11-24 13:30 | Outpatient (CLI) | payer MEDICARE, SELFPAY ==
--- NOTE | 2025-11-24 13:30 | RAD_ITS ---
PROCEDURE: HAND MIN 3 VIEWS 11/24/2025 REASON FOR EXAM: ASSESS HARDWARE OF LEFT LONG FINGER TECHNIQUE: Procedure Code: [facility] Modality: DX Procedure: HAND MIN 3 VIEWS COMPARISON: Left hand study dated 10/27/2025 FINDINGS: There is a comminuted impacted fracture involving the proximal aspect, proximal phalanx 3rd digit left hand. There is minimal callus formation noted since prior exam. A radiopaque fixation screw is present in the proximal phalanx 3rd digit. There is no fracture or loosening of the radiopaque hardware. Soft tissue swelling is noted. There is a healing fracture of the middle phalanx 2nd digit. Soft tissue swelling of the digit is noted. There are no acute fractures or dislocations. Joint spaces are well preserved. RAD/Hand Min 3 Views IMPRESSION: Healing fractures involving the middle phalanx 2nd digit and proximal phalanx 3 rd digit. The radiopaque hardware through the proximal phalanx 3rd digit is intact withou t evidence fracture or loosening. Reading Location: [id number]
== END 2025-11-24 23:59 | disposition home or self-care (01) ==
LOC: RAD 13:31
PROVIDERS: PCP Nurse Practitioner Family; Referring Provider Physician Assistant; Visit Provider Physician Assistant
DX: S62.613B Displaced fracture of proximal phalanx of left middle finger, initial encounter for open fracture (principal); X58.XXXA Exposure to other specified factors, initial encounter
CPT/HCPCS: 73130